=== PATIENT | male | born 1935 | race Caucasian/White ===

== ENCOUNTER 2016-07-24 14:53 | Inpatient (IN) | payer MEDICARE, BC ==
[2016-07-24] MEDS ORDERED: NALOXONE 0.4 MG/ML 1 ML VIAL IV PRN (19:52)
[2016-07-24] MEDS ORDERED: ALPRAZolam 0.25 MG TAB PO PRN (19:54)
[2016-07-24] MEDS ORDERED: TEMAZEPAM 15 MG CAP PO PRN (19:54)
[2016-07-24] MEDS ORDERED: ACETAMINOPHEN TAB 325 MG TAB PO PRN (19:54)
[2016-07-24 20:29] LABS: Basophils % (A) 0 %; CH 33.9; CHCM 32.8; Eosinophils # (A) 0.1 k/uL (0-0.7); Eosinophils % (A) 1 %; HDW 2.84; HGB 10.1 gm/dL (13.0-17.5); Luc # (Auto) 0.32; Luc % (Auto) 3; Lymphocytes # (A) 0.8 k/uL (1.0-4.8); Lymphocytes % (A) 8 %; MCHC 32.7 g/dL (31.0-37.0); MCV 104.1 fL (80.0-100.0); Macrocytosis Moderate; Mean Platelet Volume 7.6; Monocytes # (A) 0.8 k/uL (0-1.0); Monocytes % (A) 8 %; Neutrophils # (A) 7.8 k/uL (1.3-7.7); Neutrophils % (A) 80 %; RBC 2.98 m/uL (4.30-5.90); RDW 15.9 % (11.5-15.5); WBC 9.8 k/uL (3.8-10.6); WBC (Perox) 10.33
[2016-07-24] MEDS ORDERED: NITROGLYCERIN SL TABS 0.4 MG TAB SUBLINGUAL PRN (20:45)
[2016-07-24] MEDS ORDERED: ATORVASTATIN 80 MG TAB PO STA (20:45)
[2016-07-24] MEDS ORDERED: SODIUM CHLORIDE 0.9% 1,000 ML in EMPTY BAG 1 BAG IV ONE (20:45)
[2016-07-24] MEDS ORDERED: ASPIRIN 325 MG TAB PO STA (20:45)
[2016-07-24 21:08] LABS: Calcium 9.3 mg/dL (8.4-10.2); Potassium 4.1 mmol/L (3.5-5.1); Total Bilirubin 0.8 mg/dL (0.2-1.3); Total Protein 7.2 g/dL (6.3-8.2)
[2016-07-24] MEDS: HEPARIN SODIUM,PORCINE/D5W PMX 25,000 UNIT in DEXTROSE/WATER 1 500ML.BAG IV SCH (21:50)
[2016-07-24] MEDS: SODIUM CHLORIDE 0.9% 1,000 ML IV SCH (21:50)
[2016-07-24] MEDS: FAMOTIDINE 20 MG TAB PO SCH (21:51)
[2016-07-24] MEDS: DOCUSATE 100 MG CAP PO SCH (21:51)
[2016-07-24] MEDS: METOPROLOL SUCCINATE (ER) 25 MG TAB.ER.24H PO SCH (21:52)
[2016-07-24] MEDS: HYDROcodone/APAP 5-325MG 1 EACH TAB PO PRN (21:54)
[2016-07-25] MEDS: CALCIUM ACETATE 667 MG CAP PO SCH ×3 (05:51→16:43)
[2016-07-25] MEDS: ISOSORBIDE MONONITRATE ER 30 MG TAB.ER.24H PO SCH (05:52)
[2016-07-25] MEDS: predniSONE 5 MG TAB PO SCH (05:53)
[2016-07-25] MEDS: ALLOPURINOL 100 MG TAB PO SCH (05:53)
[2016-07-25] MEDS: DOCUSATE 100 MG CAP PO SCH ×2 (05:53→20:58)
[2016-07-25] MEDS: METOPROLOL SUCCINATE (ER) 25 MG TAB.ER.24H PO SCH ×2 (05:53→20:58)
[2016-07-25] MEDS: FAMOTIDINE 20 MG TAB PO SCH (05:53)
[2016-07-25] MEDS: FOLIC ACID 1 MG TAB PO SCH (05:54)
[2016-07-25 06:55] LABS: Glucose,Whole Blood 113 mg/dL (75-99)
[2016-07-25 07:02] LABS: Anisocytosis Slight; Basophils % (A) 1 %; CH 34.1; Eosinophils # (A) 0.2 k/uL (0-0.7); Eosinophils % (A) 2 %; HDW 2.88; HGB 9.4 gm/dL (13.0-17.5); Luc # (Auto) 0.32; Luc % (Auto) 4; Lymphocytes # (A) 0.9 k/uL (1.0-4.8); Lymphocytes % (A) 12 %; MCH 34.8 pg (25.0-35.0); MCHC 33.5 g/dL (31.0-37.0); MCV 103.9 fL (80.0-100.0); Macrocytosis Moderate; Mean Platelet Volume 7.6; Monocytes # (A) 0.8 k/uL (0-1.0); Monocytes % (A) 10 %; Neutrophils # (A) 5.7 k/uL (1.3-7.7); Neutrophils % (A) 72 %; RBC 2.69 m/uL (4.30-5.90); WBC 7.9 k/uL (3.8-10.6); WBC (Perox) 8.01
[2016-07-25] MEDS ORDERED: PANTOPRAZOLE 40 MG TABLET PO SCH (07:30)
[2016-07-25] MEDS: HEPARIN SODIUM,PORCINE/D5W PMX 25,000 UNIT in DEXTROSE/WATER 1 500ML.BAG IV SCH ×2 (08:16→12:43)
[2016-07-25] MEDS ORDERED: MIDAZOLAM 2 MG/2 ML VIAL ONE (08:26)
[2016-07-25] MEDS ORDERED: fentaNYL (PF) 50 MCG/ML 2 ML AMP ONE (08:26)
[2016-07-25] MEDS ORDERED: LIDOCAINE 2% INJ 20 MG/ML (20 ML MDV) ONE (08:26)
[2016-07-25] MEDS ORDERED: IV FLUID CONTINUATION 1,000 ML IV ONE (08:26)
[2016-07-25] MEDS ORDERED: MIDAZOLAM 2 MG/2 ML VIAL IV ONE (08:40)
[2016-07-25] MEDS ORDERED: fentaNYL (PF) 50 MCG/ML 2 ML AMP IV ONE (08:40)
[2016-07-25 08:42] LABS: Calcium 9.1 mg/dL (8.4-10.2); Potassium 4.1 mmol/L (3.5-5.1)
[2016-07-25] MEDS ORDERED: LIDOCAINE 2% INJ 20 MG/ML SQ ONE (08:45)
[2016-07-25] MEDS ORDERED: RX INFO: IV CONTRAST WAS GIVEN 1 EACH MISC MISCELLANE PRN (09:11)
[2016-07-25] MEDS ORDERED: IOHEXOL 350 MG/ML 100 ML BOTTLE INJ ONE (09:11)
[2016-07-25] MEDS ORDERED: HEPARIN SODIUM,PORCINE 5,000 UNIT/ML 1 ML VIAL IV PRN (09:17)
--- NOTE | 2016-07-25 09:20 | P.PCN ---
Date of Procedure: 07/25/16 Preoperative Diagnosis: NON STEMI Postoperative Diagnosis: Significant 2 vessel disease and mild aortic stenosis Procedure(s) Performed: Left heart catheterization without left ventriculography Description of Procedure: HISTORY: This is a 80-year-old gentleman with history of hypertension, previous ischemic heart disease and mild aortic stenosis who was admitted to [facility] with complaints of shortness of breath and cough and mild shoulder discomfort. His cardiac enzymes studies were suggestive of non-ST elevation myocardial infarction with EKG showing T-wave changes in anterolateral leads. Echocardiogram was reported as showing ejection fraction of 45% and evidence of mild to moderate aortic stenosis. Patient is advised to have a cardiac catheterization for definite diagnosis. CONSENT:I have discussed the risks, benefits and alternative therapies for the above-mentioned procedure and for both sedation/analgesia as well as necessary blood product administration, if indicated, as they pertain to this patient. The patient has indicated understanding and acceptance of the risks and procedures discussed. PROCEDURE: Patient was brought to the lab in a fasting state. Patient was given some IV sedation. The right groin is infiltrated with lidocaine and right femoral artery was entered using Seldinger technique. A 6-Samoan catheter was left in place and selective coronary arteriography was performed. Patient tolerated the procedure well. Femoral angiogram was performed and Angio-Seal was applied for hemostasis. No immediate complications were noted and patient was transferred to [facility] in a stable condition HEMODYNAMICS: The aortic pressure 120/70. Left ankle end-diastolic pressure is 18-20 at the gradient across the aortic valve seems to be about 15-20 SELECTIVE CORONARY ARTERIOGRAPHY: LEFT MAIN: Calcified with mild ostial stenosis THE LEFT ANTERIOR DESCENDING CORONARY ARTERY: This is a good caliber vessel with 90-95% stenosis proximally followed by another 90% long lesion. The distal LAD appears to be free of significant focal lesions. THE LEFT CIRCUMFLEX AND IS CORONARY ARTERY: Good caliber vessel and seemed to be free of any significant occlusive disease THE RIGHT CORONARY ARTERY: Dominant vessel with proximal 70-80% lesion. The PDA branch has mild disease LEFT VENTRICULOGRAPHY: Not performed FINAL IMPRESSION: #1 significant coronary artery disease with the critical lesions in the proximal LAD and also proximal RCA #2. Mild aortic stenosis #3 status post non-ST ID #4 mildly impaired LV function #5 mild to moderate aortic regurgitation by echo PLAN: Maximum medical therapy. Possible bypass surgery with graft to the LAD and RCA. PROGNOSIS: Guarded
[2016-07-25] MEDS ORDERED: MD COMMUNICATION TO PHARMACY 1 EACH MISC PO ONE ×2 (11:33)
--- NOTE | 2016-07-25 12:24 | P.CON ---
Consult Note - . Consult date: 07/25/16 Assessment/Plan:: I have been asked to see this patient in regards to his heel ulcer. I've been following him in the wound center. He has recurred a pressure ulcer on the posterior left heel. He has been treated successfully with a total contact cast. This ulcer is fairly small and fairly clean. In view of his upcoming coronary bypass I would recommend removing the cast. He can then be kept in sterile dressings with a gentle Javier wrap. I would utilize a foam boot for protection. I would use [employer] as a product on the ulcer. I'll be happy to see him as needed. When, after surgery, he becomes more active , we will consider replacing his total contact cast.
[2016-07-25] MEDS: SODIUM CHLORIDE 0.9% 1,000 ML IV SCH ×2 (12:50→20:58)
--- NOTE | 2016-07-25 13:19 | P.GSCN ---
History of Present Illness Consult date: 07/25/16 Reason for Consult: Coronary artery disease, need for surgical revascularization. Requesting physician: Yemi Duvall History of present illness: This 80-year-old gentleman with a history of hypertension, hyperlipidemia, previous myocardial infarction, and end-stage renal disease on hemodialysis presented to [facility] with increasing shortness of breath and cough. He denied that he had any chest pain, nausea, vomiting, diaphoresis at the time. Cardiac enzymes were drawn, EKG suggested non-ST elevation myocardial infarction with T-wave changes in the anterolateral leads. He also had an echocardiogram which demonstrated an ejection fraction of 45% with evidence of mild to moderate aortic stenosis. He was subsequently transferred to [facility] for cardiac catheterization which demonstrated significant coronary artery disease with critical lesions in the proximal LAD and proximal RCA. Dr. Alcaraz from cardiothoracic surgery was consulted for the possibility of surgical revascularization. Review of Systems 14 point review of systems was completed and was negative except as noted. - EENT Ears, nose, mouth and throat: Reports epistaxis - Cardiovascular Reports as per HPI - Respiratory Reports as per HPI Past Medical History Past Medical History: Heart Failure, Dialysis, Hyperlipidemia, Hypertension, Myocardial Infarction ([place]), Osteoarthritis ([place]), Renal Disease, Rheumatoid Arthritis ([place]) Additional Past Medical History / Comment(s): staph infection in blood. 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, VRE RIGHT FOOT Past Surgical History: Orthopedic Surgery, Tonsillectomy Additional Past Surgical History / Comment(s): right knee replacement, L arm dialysis shunt revised Past Anesthesia/Blood Transfusion Reactions: No Reported Reaction Past Psychological History: No Psychological Hx Reported Smoking Status: Former smoker Past Alcohol Use History: None Reported Past Drug Use History: None Reported Additional History: quit smoking 40 years ago, previous to that smoked 1 pk/day for 10 years - Past Family History Father Family Medical History: Coronary Artery Disease (CAD) Additional Family Medical History / Comment(s): father in a car accident Mother Family Medical History: No Reported History Additional Family Medical History / Comment(s): mother of old age Medications and Allergies Home Medications Medication Instructions Recorded Confirmed Type Allopurinol [Zyloprim] 100 mg PO DAILY 02/10/15 07/24/16 History Aspirin [Adult Low Dose Aspirin EC] 81 mg PO DAILY 02/10/15 07/24/16 History Cholecalciferol [Vitamin D3] 1,000 unit PO DAILY@1200 02/10/15 07/24/16 History Famotidine [Pepcid] 20 mg PO BID 02/10/15 07/24/16 History Folic Acid 1 mg PO DAILY 02/10/15 07/24/16 History predniSONE 5 mg PO DAILY 02/10/15 07/24/16 History Atorvastatin [Lipitor] 10 mg PO DAILY 08/08/15 07/24/16 History HYDROcodone/APAP 10-325MG [[place] 1 tab PO TID 08/08/15 07/24/16 History 10-325] Metoprolol Succinate [Toprol XL] 25 mg PO BID 08/08/15 07/24/16 History Calcium Acetate [Phoslo] 667 mg PO TID 07/24/16 07/24/16 History Docusate [Colace] 100 mg PO BID 07/24/16 07/24/16 History Furosemide [Lasix] 60 mg PO DAILY 07/24/16 07/24/16 History Isosorbide Mononitrate ER [Imdur] 30 mg PO DAILY 07/24/16 07/24/16 History Allergies Allergy/AdvReac Type Severity Reaction Status Date / Time No Known Allergies Allergy Verified 07/24/16 19:59 Surgical - Exam Vital Signs Temp Pulse Resp BP Pulse Ox 98.7 F 84 16 136/73 96 07/24/16 20:46 07/24/16 20:46 07/24/16 20:46 07/24/16 20:46 07/24/16 20:46 - General well developed, well nourished, no distress - Eyes PERRL, normal ocular movement - Neck no masses, no bruits, trachea midline thyroid nodule: absent, lymphadenopathy: absent, carotid bruit: absent - Respiratory Lungs sounds diminished bilaterally. Respirations even, nonlabored. Currently on room air. Effective cough. No clubbing of nails or central cyanosis. - Cardiovascular S1, S2 present. Systolic murmur present. Regular rate and rhythm, normal sinus rhythm on telemetry. No edema present. Left upper extremity AV fistula present, currently being used for hemodialysis. - Abdomen Abdomen: soft, non tender, bowel sounds - Genitourinary Deferred - Rectum Deferred - Integumentary Patient has left heel ulcer with total contact cast present, recent debridement , managed in the wound care center. no rash, no growths - Neurologic normal coordination, normal sensation - Musculoskeletal normal gait - Psychiatric oriented to time, oriented to person, oriented to place, speech is normal, memory intact Results - Labs 07/25/16 06:21 07/25/16 06:21 Abnormal Lab Results - Last 24 Hours (Table) 07/24/16 07/24/16 07/24/16 Range/Units 20:15 20:15 20:15 RBC 2.98 L (4.30-5.90) m/uL Hgb 10.1 L (13.0-17.5) gm/dL Hct 31.0 L (39.0-53.0) % MCV 104.1 H (80.0-100.0) fL RDW 15.9 H (11.5-15.5) % Neutrophils # 7.8 H (1.3-7.7) k/uL Lymphocytes # 0.8 L (1.0-4.8) k/uL APTT 54.4 H (22.0-30.0) sec Chloride 95 L (98-107) mmol/L BUN 39 H (9-20) mg/dL Creatinine 5.28 H* (0.66-1.25) mg/dL Glucose 129 H (74-99) mg/dL POC Glucose (mg/dL) (75-99) mg/dL 07/25/16 07/25/16 07/25/16 Range/Units 06:21 06:21 06:21 RBC 2.69 L (4.30-5.90) m/uL Hgb 9.4 L (13.0-17.5) gm/dL Hct 28.0 L (39.0-53.0) % MCV 103.9 H (80.0-100.0) fL RDW 16.0 H (11.5-15.5) % Neutrophils # (1.3-7.7) k/uL Lymphocytes # 0.9 L (1.0-4.8) k/uL APTT 61.0 H (22.0-30.0) sec Chloride (98-107) mmol/L BUN 47 H (9-20) mg/dL Creatinine 5.81 H* (0.66-1.25) mg/dL Glucose 110 H (74-99) mg/dL POC Glucose (mg/dL) (75-99) mg/dL 07/25/16 Range/Units 06:54 RBC (4.30-5.90) m/uL Hgb (13.0-17.5) gm/dL Hct (39.0-53.0) % MCV (80.0-100.0) fL RDW (11.5-15.5) % Neutrophils # (1.3-7.7) k/uL Lymphocytes # (1.0-4.8) k/uL APTT (22.0-30.0) sec Chloride (98-107) mmol/L BUN (9-20) mg/dL Creatinine (0.66-1.25) mg/dL Glucose (74-99) mg/dL POC Glucose (mg/dL) 113 H (75-99) mg/dL Diabetes panel 07/24/16 07/25/16 Range/Units 20:15 06:21 Sodium 137 139 (137-145) mmol/L Potassium 4.1 4.1 (3.5-5.1) mmol/L Chloride 95 L 101 (98-107) mmol/L Carbon Dioxide 29 24 (22-30) mmol/L BUN 39 H 47 H (9-20) mg/dL Creatinine 5.28 H* 5.81 H* (0.66-1.25) mg/dL Glucose 129 H 110 H (74-99) mg/dL Calcium 9.3 9.1 (8.4-10.2) mg/dL AST 33 (17-59) U/L ALT 21 (21-72) U/L Alkaline Phosphatase 99 (38-126) U/L Total Protein 7.2 (6.3-8.2) g/dL Albumin 3.7 (3.5-5.0) g/dL Calcium panel 07/24/16 07/25/16 Range/Units 20:15 06:21 Calcium 9.3 9.1 (8.4-10.2) mg/dL Albumin 3.7 (3.5-5.0) g/dL Pituitary panel 07/24/16 07/25/16 Range/Units 20:15 06:21 Sodium 137 139 (137-145) mmol/L Potassium 4.1 4.1 (3.5-5.1) mmol/L Chloride 95 L 101 (98-107) mmol/L Carbon Dioxide 29 24 (22-30) mmol/L BUN 39 H 47 H (9-20) mg/dL Creatinine 5.28 H* 5.81 H* (0.66-1.25) mg/dL Glucose 129 H 110 H (74-99) mg/dL Calcium 9.3 9.1 (8.4-10.2) mg/dL Adrenal panel 07/24/16 07/25/16 Range/Units 20:15 06:21 Sodium 137 139 (137-145) mmol/L Potassium 4.1 4.1 (3.5-5.1) mmol/L Chloride 95 L 101 (98-107) mmol/L Carbon Dioxide 29 24 (22-30) mmol/L BUN 39 H 47 H (9-20) mg/dL Creatinine 5.28 H* 5.81 H* (0.66-1.25) mg/dL Glucose 129 H 110 H (74-99) mg/dL Calcium 9.3 9.1 (8.4-10.2) mg/dL Total Bilirubin 0.8 (0.2-1.3) mg/dL AST 33 (17-59) U/L ALT 21 (21-72) U/L Alkaline Phosphatase 99 (38-126) U/L Total Protein 7.2 (6.3-8.2) g/dL Albumin 3.7 (3.5-5.0) g/dL - Imaging EKG: image reviewed Additional studies: Cath films reviewed. Assessment and Plan (1) Non-STEMI (non-ST elevated myocardial infarction) Status: Acute (2) Hypertension Status: Acute (3) Hyperlipidemia Status: Acute (4) End-stage renal disease on hemodialysis Status: Acute Plan: 1. Continue aspirin, statin, beta odette. 2. Preoperative testing ordered, pending. 3. Plan for urgent off pump coronary artery bypass graft on 07/29/2016 pending results of preoperative testing. 4. Preoperative teaching begun with patient, all questions answered at this time. 5. Plan discussed with Dr. Alcaraz, more recommendations, as patient progresses. Thank you Dr. Duvall for this consult. We look forward to working with you in the care of your patient. Time with Patient: Greater than 30
--- NOTE | 2016-07-25 14:03 | CONS ---
DATE OF CONSULTATION: 07/25/2016 HISTORY OF PRESENT ILLNESS: Patient is a 80-year-old white male with a history of end-stage renal disease on hemodialysis on a Friday, , Friday schedule. Patient was admitted to [facility] initially with not feeling well. Some cough, shortness of breath. He ruled in for [id number] [place], his troponin was around 10 Patient was transferred last night to [facility] for cardiac catheterization. He did have a cardiac cath this morning and was found to have 2 significant areas of blockages and a bypass has been recommended. Patient will be evaluated by Cardiothoracic Surgery. He was dialyzed yesterday for mild volume overload and mild hyperkalemia. Patient will be dialyzed again today. PAST MEDICAL HISTORY: End-stage renal disease, anemia of chronic disease, coronary artery disease, CKD, bone mineral disorder, hypertension. PAST SURGICAL HISTORY: AV fistula left arm with multiple revisions, previous MRSA wound infection and also history of heel ulcer being followed by Dr. Carey. It is on the left heel. Social history is negative for smoking, drug abuse or alcohol abuse. Patient works as a real estate services administrator. No history of smoking, drug abuse or alcohol abuse. On examination, he is comfortable. Blood pressure is 126/75, heart rate 82 per minute. He is afebrile. Examination of the heart, S1 and S2. Examination of the lungs, bilateral breath sounds are heard. Abdomen is soft, nontender. Examination of lower extremities shows no significant edema. Chronic skin changes are noted. FILTER TIP INSPECTOR exam is grossly intact. Labs show sodium 139, potassium 4.1. Hemoglobin 9.4 g/dL, serum creatinine 5.8. ASSESSMENT: 1. End-stage renal disease on hemodialysis on a Friday, , Friday schedule. Patient will be dialyzed today. 2. Coronary artery disease, status post cardiac catheterization, coronary artery bypass surgery has been recommended. 3. Anemia of chronic disease. 4. History of left heel ulcer being followed by Vascular Surgery. PLAN: Hemodialysis today, await further input from Cardiothoracic Surgery.
[2016-07-25] MEDS ORDERED: GELATIN SPONGE,ABSORB (SMALL) 1 EACH SPONGE ONE (14:45)
--- NOTE | 2016-07-25 15:59 | US ---
EXAMINATION TYPE: US carotid duplex BILAT DATE OF EXAM: 07/25/2016 3:48 PM COMPARISON: NONE CLINICAL HISTORY: pre op cardiac surgery. Pre-Op CABG EXAM MEASUREMENTS: RIGHT: Peak Systolic Velocity (PSV) cm/sec ----- Right CCA: 72.3 ----- Right ICA: 114.5 ----- Right ECA: 100.0 ICA/CCA ratio: 1.6 RIGHT: End Diastole cm/sec ----- Right CCA: 11.3 ----- Right ICA: 17.6 ----- Right ECA: 0.0 LEFT: Peak Systolic Velocity (PSV) cm/sec ----- Left CCA: 81.2 ----- Left ICA: 124.2 ----- Left ECA: 100.8 ICA/CCA ratio: 1.5 LEFT: End Diastole cm/sec ----- Left CCA: 19.7 ----- Left ICA: 37.0 ----- Left ECA: 0.0 VERTEBRALS (direction of flow): Right Vertebral: Antegrade Left Vertebral: Antegrade Heterogeneous plaque bilaterally without significant hemodynamic stenosis seen IMPRESSION: 1. Heterogeneous plaque bilaterally with no significant hemodynamic stenosis.
[2016-07-25 16:42] LABS: Hemoglobin A1C 5.5 % (4.2-6.1)
[2016-07-25] MEDS: FUROSEMIDE 20 MG TAB PO SCH (16:42)
[2016-07-25] MEDS: CHOLECALCIFEROL 1,000 UNIT TAB PO SCH (16:43)
--- NOTE | 2016-07-25 17:10 | P.CNPUL ---
History of Present Illness Consult date: 07/25/16 Chief complaint: Preoperative pulmonary evaluation History of present illness: This is a 80-year-old gentleman with history of hypertension, previous ischemic heart disease and mild aortic stenosis , end-stage renal disease on hemodialysis , known history of rheumatoid arthritis, who was admitted to [facility] with complaints of shortness of breath and cough and mild shoulder discomfort. His cardiac enzymes studies were suggestive of non-ST elevation myocardial infarction with EKG showing T-wave changes in anterolateral leads. Echocardiogram was reported as showing ejection fraction of 45% and evidence of mild to moderate aortic stenosis. Cardiac catheterization was completed and it showedSignificant coronary artery disease with a critical lesion in the proximal LAD and also in the proximal RCA. Based on these findings, the patient was asked to be seen by cardiothoracic surgery in consultation for surgery. The patient also has mild aortic stenosis and a mildly impaired LV function. From the pulmonary standpoint, the patient has no major respiratory difficulties. He claims that he was able to climb flight of stairs without any major difficulties. Nevertheless, currently has a ulcer on his left heel and this is limited his ability to walk and ambulate. No reported cough or sputum production. No chest tightness. No wheezing. No history of smoking. No recent pneumonias. No asthma. No bronchitis. Oxygen therapy. No nebulizer medication use or any other inhaler to use. Based on FEV1 is to be measured to a bedside spirometry. X-ray is to be also done. Room air pulse ox however is in the order of 94% and above. Review of Systems 12 point review of system was done and the positive findings are all mentioned above in history of present illness Past Medical History Past Medical History: Heart Failure, Dialysis, Hyperlipidemia, Hypertension, Myocardial Infarction ([place]), Osteoarthritis (OA), Renal Disease, Rheumatoid Arthritis (RA) Additional Past Medical History / Comment(s): Coronary artery disease details as mentioned above, incisional disease on hemodialysis, left lower extremity ulcer being followed up at the wound center, hyperlipidemia, gout, mild aortic stenosis, CHF mild, chronic anemia, hypertension, previous history of staphylococcal and enterococcal wound infection. Patient had MRSA. 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, VRE RIGHT FOOT Past Surgical History: Orthopedic Surgery, Tonsillectomy Additional Past Surgical History / Comment(s): right knee replacement, L arm dialysis shunt revised Past Anesthesia/Blood Transfusion Reactions: No Reported Reaction Past Psychological History: No Psychological Hx Reported Smoking Status: Former smoker Past Alcohol Use History: None Reported Past Drug Use History: None Reported - Past Family History Father Family Medical History: Coronary Artery Disease (CAD) Additional Family Medical History / Comment(s): father in a car accident Mother Family Medical History: No Reported History Additional Family Medical History / Comment(s): mother of old age Medications and Allergies Home Medications Medication Instructions Recorded Confirmed Type Allopurinol [Zyloprim] 100 mg PO DAILY 02/10/15 07/24/16 History Aspirin [Adult Low Dose Aspirin EC] 81 mg PO DAILY 02/10/15 07/24/16 History Cholecalciferol [Vitamin D3] 1,000 unit PO DAILY@1200 02/10/15 07/24/16 History Famotidine [Pepcid] 20 mg PO BID 02/10/15 07/24/16 History Folic Acid 1 mg PO DAILY 02/10/15 07/24/16 History predniSONE 5 mg PO DAILY 02/10/15 07/24/16 History Atorvastatin [Lipitor] 10 mg PO DAILY 08/08/15 07/24/16 History HYDROcodone/APAP 10-325MG [[place] 1 tab PO TID 08/08/15 07/24/16 History 10-325] Metoprolol Succinate [Toprol XL] 25 mg PO BID 08/08/15 07/24/16 History Calcium Acetate [Phoslo] 667 mg PO TID 07/24/16 07/24/16 History Docusate [Colace] 100 mg PO BID 07/24/16 07/24/16 History Furosemide [Lasix] 60 mg PO DAILY 07/24/16 07/24/16 History Isosorbide Mononitrate ER [Imdur] 30 mg PO DAILY 07/24/16 07/24/16 History Allergies Allergy/AdvReac Type Severity Reaction Status Date / Time No Known Allergies Allergy Verified 07/24/16 19:59 Physical Exam Vitals: Vital Signs Temp Pulse Pulse Resp BP Pulse Ox 07/25/16 15:08 97.0 F L 86 18 146/77 97 04/06/17 12:56 85 18 168/78 97 07/25/16 12:00 16 07/25/16 11:56 82 16 157/80 93 L 07/25/16 10:56 84 18 151/74 92 L 07/25/16 10:26 86 18 156/78 93 L 07/25/16 09:56 78 18 132/74 93 L 07/25/16 09:41 79 18 139/73 93 L 07/25/16 08:00 98.4 F 79 18 125/81 94 L 07/25/16 03:18 97.2 F L 82 16 126/75 93 L 07/25/16 00:00 98.8 F 88 16 127/72 92 L 07/24/16 20:46 98.7 F 84 16 136/73 96 Intake and Output 07/25/16 07/25/16 07/25/16 06:59 14:59 22:59 Intake Total 750 50 Output Total 250 175 150 Balance 500 -125 -150 Intake: IV 750 50 Heparin Sodium,Porcine/ 400 D5w Pmx 25,000 unit In Dextrose/Water 1 500ml. bag @ 14.43 UNITS/KG/HR 25 mls/hr IV .Q20H RINA Rx #:[id number] Sodium Chloride 0.9% 1, 350 000 ml @ 20 mls/hr IV . Q24H RINA Rx#:[id number] Oral 0 Output: Urine 250 175 150 Other: Voiding Method Urinal Weight 85.5 kg Head exam was generally normal. There was no scleral icterus or corneal arcus. Mucous membranes were moist.Neck was supple and without jugular venous distension, thyromegaly, or carotid bruits. Carotids were easily palpable bilaterally. There was no adenopathy.Lungs were clear to auscultation and percussion, and with normal diaphragmatic excursion. No wheezes or rales were noted. Cardiac exam revealed the PMI to be normally situated and sized. The rhythm was regular and no extrasystoles were noted during several minutes of auscultation. The first and second heart sounds were normal and physiologic splitting of the second heart sound was noted. There were no murmurs, rubs, clicks, or gallops.Abdominal exam revealed normal bowel sounds. The abdomen was soft, non-tender, and without masses, organomegaly, or appreciable enlargement of the abdominal aorta. Extremities were inspected and the patient has a dressing covering the left heel wound along with the appropriate splint. The patient also has a AV fistula in the left upper extremity. No cyanosis or clubbing. Results - Laboratory Findings CBC and BMP: 07/25/16 06:21 07/25/16 06:21 Abnormal lab findings: Abnormal Labs 07/24/16 07/24/16 07/24/16 20:15 20:15 20:15 RBC 2.98 L Hgb 10.1 L Hct 31.0 L MCV 104.1 H RDW 15.9 H Neutrophils # 7.8 H Lymphocytes # 0.8 L APTT 54.4 H Chloride 95 L BUN 39 H Creatinine 5.28 H* Glucose 129 H POC Glucose (mg/dL) 07/25/16 07/25/16 07/25/16 06:21 06:21 06:21 RBC 2.69 L Hgb 9.4 L Hct 28.0 L MCV 103.9 H RDW 16.0 H Neutrophils # Lymphocytes # 0.9 L APTT 61.0 H Chloride BUN 47 H Creatinine 5.81 H* Glucose 110 H POC Glucose (mg/dL) 07/25/16 06:54 RBC Hgb Hct MCV RDW Neutrophils # Lymphocytes # APTT Chloride BUN Creatinine Glucose POC Glucose (mg/dL) 113 H Assessment and Plan Plan: Assessment 1 Coronary artery disease post non-ST segment elevation myocardial infarction. The patient is post cardiac catheter sedation cardiac catheterization which showed critical lesion in the LAD and a second lesion in the RCA and based on discussion with cardiology the patient was thought to aggressive with bypass surgery. Currently is free of chest pain. 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 6 left lower extremity wound 7 hypertension 8 hyperlipidemia 9 Hyperuricemia/gout Plan Proceed with the cardiac surgery workup. Obtain ultrasound Dopplers of the carotids. Obtain a chest x-ray. Obtain a bedside spirometry to assess the patient's FEV1. We'll continue to follow.
--- NOTE | 2016-07-25 18:38 | CT ---
EXAMINATION TYPE: CT chest wo con DATE OF EXAM: 07/25/2016 6:28 PM COMPARISON: 08/08/2014 HISTORY: Pre Op scan per patient chest pain CT DLP: 481.5 mGycm Automated exposure control for dose reduction was used. FINDINGS: There are mild to moderate bilateral pleural effusions. Heart appears slightly enlarged. There is ath erosclerotic vascular calcification. There is no evidence of aortic aneurysm. There are no hilar mass es. There are a few mediastinal lymph nodes that measure less than 1 cm. There is mild groundglass type interstitial infiltrate in the upper lobe. There is no evidence of a p ulmonary mass. There is mild linear density at the lung bases consistent with scarring and atelectasi s. IMPRESSION: ATHEROSCLEROTIC VASCULAR DISEASE. BILATERAL PLEURAL EFFUSIONS ARE INCREASED SIGNIFICANTLY COMPARED TO LAST EXAM. INTERSTITIAL CHANGES AT THE LUNG BASES CONSISTENT WITH INTERSTITIAL FIBROSIS. THERE IS NE W GROUNDGLASS INTERSTITIAL NONSPECIFIC INFILTRATE IN THE UPPER LOBES COMPARED TO OLD EXAM. MILD CARDI OMEGALY.
--- NOTE | 2016-07-25 19:13 | XR ---
EXAMINATION TYPE: XR chest 2V DATE OF EXAM: 07/25/2016 6:52 PM COMPARISON: NONE HISTORY: Preop cardiac surgery TECHNIQUE: Frontal and lateral views of the chest are obtained. FINDINGS: There is blunting of costophrenic angles. There is no gross heart failure. Heart size is n ormal. Thoracic aorta is atheromatous. There are no hilar masses. There are chest leads. Bony thorax appears intact. There is old posterior lateral right mid rib fracture. IMPRESSION: There are new bilateral pleural effusions compared to last exam without overt heart fail ure.
--- NOTE | 2016-07-25 19:58 | HP ---
DATE OF ADMISSION: 07/24/2016 CHIEF COMPLAINT: Chest pain. HISTORY OF PRESENT ILLNESS: This 80-year-old gentleman with a past medical history of multiple medical problems including CHF, CAD, chronically on hemodialysis, hypertension, hyperlipidemia, myocardial infarction, history of rheumatoid arthritis, history of MRSA , being followed by Dr. Sage in the outpatient setting, presented to [facility] with complaints of chest pain as well as some shortness of breath and cough and multiple symptomatology. Features showed acute non-ST elevation myocardial infarction. Ejection fraction 45%. The patient underwent cardiac catheterization by Dr. Duvall after being transferred to [facility]. The cardiac cath showed significant coronary artery disease and critical lesions in the proximal LAD as well as proximal RCA and mild aortic stenosis. Mildly impaired LV function, mild to moderate aortic regurgitation by echo also. The patient was recommended a Cardiothoracic Surgery consult, which is being worked on at this time. Of note, the patient also had left heel ulcer of recurrent nature in the posterior left heel. Dr. Carey is following the patient closely. There is no history of fevers or rigors. No history of headaches, loss of consciousness or seizures. PAST MEDICAL HISTORY: History of hemodialysis, hypertension, hyperlipidemia, myocardial infarction, rheumatoid arthritis, MRSA ( ) sepsis. Medications prior to admission include home medications of: 1. Colace 100 mg b.i.d. 2. Vitamin D3, 1000 units. 3. Prednisone 5 mg daily. 4. Toprol XL 25 mg b.i.d. 5. Hydrocodone 25 mg t.i.d. p.r.n. 6. Phos-Lo. 7. Lasix 60 mg p.o. daily. 8. Pepcid 20 mg daily. 9. Lipitor 10 mg p.o. daily. 10. Zyloprim 100 mg p.o. t.i.d. 11. Imdur 30 mg daily. 12. Folic acid. 13. Aspirin 81 mg p.o. daily. ALLERGIES: None. FAMILY HISTORY: No history of heart disease or strokes in the family. SOCIAL HISTORY: Previous history of smoking. No history of alcohol. No history of current smoking. REVIEW OF SYSTEMS: ENT: No diminishing hearing or diminished vision. CARDIOVASCULAR: As mentioned earlier. RESPIRATORY: As mentioned earlier. GI: No nausea. : As mentioned earlier. NERVOUS SYSTEM: No numbness or weakness. ALLERGY/IMMUNOLOGY: No history of asthma. MUSCULOSKELETAL: As mentioned earlier. HEMATOLOGY/ONCOLOGY: No history of anemia. ENDOCRINE: As mentioned earlier. CONSTITUTIONAL: As mentioned nature. RHEUMATOLOGY: Negative. DERMATOLOGY: Negative. PSYCHIATRY: As mentioned earlier. PHYSICAL EXAM: Alert, oriented x3. Pulse 84, blood pressure 151/75, respirations 18, temperature normal, pulse ox 92% on room air. HEENT: Conjunctivae normal. NECK: No JVD. CARDIOVASCULAR: S1 and S2 muffled. LUNGS: Breath sounds diminished in the bases. Few scattered rhonchi. No crackles. ABDOMEN: Soft, nontender. No masses palpable. EXTREMITIES: Legs no edema. NERVOUS SYSTEM: Higher functions as mentioned. Moves all limbs equally. No focal deficits. SKIN: No ulcer or rash. LABS: WBC 9, hemoglobin 10, MCV 104.1, APTT 54.4, creatinine is 5.28, glucose 110. ASSESSMENT: 1. Acute non-ST segment elevation myocardial infarction with chest pain, status post cardiac catheterization. Awaiting further details regarding coronary artery bypass grafting. 2. Chronic renal failure with end-stage renal disease, stage IV, on hemodialysis. 3. Anemia, macrocytic, possibly secondary to renal hemodialysis and renal failure. 4. Increased random blood sugar. 5. History of congestive heart failure. 6. Hypertension. 7. Hyperlipidemia. 8. History of degenerative joint disease. 9. History of myocardial infarction. 10. History of rheumatoid arthritis. 11. History of Staph the blood. 12. 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 13. Tonsillectomy. 14. History of degenerative joint disease. 15. FULL CODE. RECOMMENDATIONS AND DISCUSSION: This 80-year-old gentleman who presented with multiple complex medical issues, we will monitor the patient closely, continue with the current medications and symptomatic treatment. At this time I recommend continue with the previous medications including beta blockers, antiplatelets, and resume the home medications. Otherwise, I would recommend follow-up labs. Closely follow with Cardiothoracic Surgery. Continue with hemodialysis. Nephrology has been consulted. Dr. Carey has been consulted for the heel ulcer. The cast was removed because of the surgery, otherwise sterile dressing and gentle Javier wrap also recommended. Follow with Dr. Carey after discharge. Otherwise, prognosis is guarded. Will discussed with the patient and staff. FOREIGN
[2016-07-25] MEDS: MUPIROCIN 2% OINT 22 GM TUBE NASAL SCH (20:59)
[2016-07-25] MEDS: HYDROcodone/APAP 5-325MG 1 EACH TAB PO PRN (21:02)
[2016-07-25 21:25] LABS: Appearance,Urine Clear (Clear); Bacteria,Urine Rare /hpf; Bilirubin,Urine Negative (Negative); Glucose,Urine (UA) 1+ (Negative); Ketones,Urine Negative (Negative); Leukocyte Esterase,Urine Negative (Negative); Nitrite,Urine Negative (Negative); Particle Count 721; Protein,Urine 2+ (Negative); RBC,Urine <1 /hpf (0-5); Specific Gravity,Urine 1.007 (1.001-1.035); Squamous Epithelial Cell,Urine <1 /hpf (0-4); UA Billing (MACRO vs. MICRO) MICRO; Urobilinogen,Urine <2.0 mg/dL (<2.0); WBC,Urine <1 /hpf (0-5)
[2016-07-26 06:41] LABS: INR 1.1 (<1.1); Prothrombin Time 11.2 sec (9.0-12.0)
[2016-07-26 06:46] LABS: Anisocytosis Slight; Aty Lym Flag Slight; CH 33.8; CHCM 31.6; HCT 27.4 % (39.0-53.0); HDW 3.03; HGB 8.8 gm/dL (13.0-17.5); Hypochromasia Slight; MCH 34.6 pg (25.0-35.0); MCHC 32.1 g/dL (31.0-37.0); MCV 107.6 fL (80.0-100.0); Macrocytosis Marked; Mean Platelet Volume 7.5; RBC 2.55 m/uL (4.30-5.90); RDW 16.2 % (11.5-15.5); WBC 7.4 k/uL (3.8-10.6)
[2016-07-26 06:53] LABS: Partial Thromboplastin Time 63.5 sec (22.0-30.0)
[2016-07-26] MEDS: CALCIUM ACETATE 667 MG CAP PO SCH ×3 (06:54→18:24)
[2016-07-26 07:32] LABS: Hepatitis C Virus IgG Index 0.03
[2016-07-26 08:10] LABS: Add Differential Manual Differential
[2016-07-26 08:16] LABS: Nucleated Red Blood Cells 0 /100 WBC (0-0)
[2016-07-26 08:18] LABS: Band Neutrophils % 0.5 %; Myelocytes % 0.5 %; Total Cells Counted 200
[2016-07-26 08:20] LABS: Manual Review Performed
[2016-07-26 08:25] LABS: Cholesterol 143 mg/dL (<200); HDL Cholesterol 55 mg/dL (40-60); Magnesium 2.5 mg/dL (1.6-2.3); Triglycerides 78 mg/dL (<150)
--- NOTE | 2016-07-26 08:30 | P.GSCN ---
History of Present Illness Consult date: 07/26/16 Reason for Consult: Recurrent nosebleeds, scheduled for CABG friday with use of anticoagulants Past Medical History Past Medical History: Heart Failure, Dialysis, Hyperlipidemia, Hypertension, Myocardial Infarction ([place]), Osteoarthritis (OA), Renal Disease, Rheumatoid Arthritis (RA) Additional Past Medical History / Comment(s): Coronary artery disease details as mentioned above, incisional disease on hemodialysis, left lower extremity ulcer being followed up at the wound center, hyperlipidemia, gout, mild aortic stenosis, CHF mild, chronic anemia, hypertension, previous history of staphylococcal and enterococcal wound infection. Patient had MRSA. 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, VRE RIGHT FOOT Past Surgical History: Orthopedic Surgery, Tonsillectomy Additional Past Surgical History / Comment(s): right knee replacement, L arm dialysis shunt revised Past Anesthesia/Blood Transfusion Reactions: No Reported Reaction Past Psychological History: No Psychological Hx Reported Smoking Status: Former smoker Past Alcohol Use History: None Reported Past Drug Use History: None Reported - Past Family History Father Family Medical History: Coronary Artery Disease (CAD) Additional Family Medical History / Comment(s): father in a car accident Mother Family Medical History: No Reported History Additional Family Medical History / Comment(s): mother of old age Medications and Allergies Home Medications Medication Instructions Recorded Confirmed Type Allopurinol [Zyloprim] 100 mg PO DAILY 02/10/15 07/24/16 History Aspirin [Adult Low Dose Aspirin EC] 81 mg PO DAILY 02/10/15 07/24/16 History Cholecalciferol [Vitamin D3] 1,000 unit PO DAILY@1200 02/10/15 07/24/16 History Famotidine [Pepcid] 20 mg PO BID 02/10/15 07/24/16 History Folic Acid 1 mg PO DAILY 02/10/15 07/24/16 History predniSONE 5 mg PO DAILY 02/10/15 07/24/16 History Atorvastatin [Lipitor] 10 mg PO DAILY 08/08/15 07/24/16 History HYDROcodone/APAP 10-325MG [[place] 1 tab PO TID 08/08/15 07/24/16 History 10-325] Metoprolol Succinate [Toprol XL] 25 mg PO BID 08/08/15 07/24/16 History Calcium Acetate [Phoslo] 667 mg PO TID 07/24/16 07/24/16 History Docusate [Colace] 100 mg PO BID 07/24/16 07/24/16 History Furosemide [Lasix] 60 mg PO DAILY 07/24/16 07/24/16 History Isosorbide Mononitrate ER [Imdur] 30 mg PO DAILY 07/24/16 07/24/16 History Allergies Allergy/AdvReac Type Severity Reaction Status Date / Time No Known Allergies Allergy Verified 07/24/16 19:59 Surgical - Exam Osteopathic Statement: *. No significant issues noted on an osteopathic structural exam other than those noted in the History and Physical/Consult. Vital Signs Temp Pulse Resp BP Pulse Ox 98.7 F 84 16 136/73 96 07/24/16 20:46 07/24/16 20:46 07/24/16 20:46 07/24/16 20:46 07/24/16 20:46 Results - Labs 07/26/16 06:10 07/25/16 06:21 Abnormal Lab Results - Last 24 Hours (Table) 07/25/16 07/25/16 07/25/16 Range/Units 06:21 20:46 22:38 RBC (4.30-5.90) m/uL Hgb (13.0-17.5) gm/dL Hct (39.0-53.0) % MCV (80.0-100.0) fL RDW (11.5-15.5) % Lymphocytes # (Manual) (1.0-4.8) k/uL APTT 56.7 H (22.0-30.0) sec BUN 47 H (9-20) mg/dL Creatinine 5.81 H* (0.66-1.25) mg/dL Glucose 110 H (74-99) mg/dL Urine Protein 2+ H (Negative) Urine Glucose (UA) 1+ H (Negative) Urine Blood Trace H (Negative) Urine Bacteria Rare H (None) /hpf 07/26/16 07/26/16 Range/Units 06:10 06:10 RBC 2.55 L (4.30-5.90) m/uL Hgb 8.8 L (13.0-17.5) gm/dL Hct 27.4 L (39.0-53.0) % MCV 107.6 H (80.0-100.0) fL RDW 16.2 H (11.5-15.5) % Lymphocytes # (Manual) 0.8 L (1.0-4.8) k/uL APTT 63.5 H (22.0-30.0) sec BUN (9-20) mg/dL Creatinine (0.66-1.25) mg/dL Glucose (74-99) mg/dL Urine Protein (Negative) Urine Glucose (UA) (Negative) Urine Blood (Negative) Urine Bacteria (None) /hpf Diabetes panel 07/25/16 07/25/16 Range/Units 06:21 06:21 Sodium 139 (137-145) mmol/L Potassium 4.1 (3.5-5.1) mmol/L Chloride 101 (98-107) mmol/L Carbon Dioxide 24 (22-30) mmol/L BUN 47 H (9-20) mg/dL Creatinine 5.81 H* (0.66-1.25) mg/dL Glucose 110 H (74-99) mg/dL Hemoglobin A1c 5.5 (4.2-6.1) % Calcium 9.1 (8.4-10.2) mg/dL Calcium panel 07/25/16 Range/Units 06:21 Calcium 9.1 (8.4-10.2) mg/dL Pituitary panel 07/25/16 Range/Units 06:21 Sodium 139 (137-145) mmol/L Potassium 4.1 (3.5-5.1) mmol/L Chloride 101 (98-107) mmol/L Carbon Dioxide 24 (22-30) mmol/L BUN 47 H (9-20) mg/dL Creatinine 5.81 H* (0.66-1.25) mg/dL Glucose 110 H (74-99) mg/dL Calcium 9.1 (8.4-10.2) mg/dL Adrenal panel 07/25/16 Range/Units 06:21 Sodium 139 (137-145) mmol/L Potassium 4.1 (3.5-5.1) mmol/L Chloride 101 (98-107) mmol/L Carbon Dioxide 24 (22-30) mmol/L BUN 47 H (9-20) mg/dL Creatinine 5.81 H* (0.66-1.25) mg/dL Glucose 110 H (74-99) mg/dL Calcium 9.1 (8.4-10.2) mg/dL
--- NOTE | 2016-07-26 08:33 | P.OP ---
Date of Procedure: 07/26/16 Preoperative Diagnosis: Recurring epistaxis right side patient scheduled for coronary artery bypass graft Postoperative Diagnosis: Same, ulcer right septum Procedure(s) Performed: Flexible nasal fiberoptic endoscopy Anesthesia: none Surgeon: Felix Peters Estimated Blood Loss (ml): 0 Pathology: none sent Condition: stable Disposition: PACU Indications for Procedure: Patient's been having recurring epistaxis probably from the right side. Intranasal pathology is to be ruled out Operative Findings: Patient has a right anterior septal ulcer in Kiesselbach's plexus there is a septal spur on the left there are no tumors masses or any gross noted. Description of Procedure: This patient was placed in a semirecumbent position. The right nares was evaluated externally and then entered with an EF type GP nasal endoscope. We evaluated the nose along the floor the nose underneath the middle turbinate and then superiorly bilaterally. There was a left septal spur and a slight left septal deviation. There was a anterior septal ulcer noted with some crusting and scabbing.
--- NOTE | 2016-07-26 08:39 | P.GSCN ---
History of Present Illness Consult date: 07/26/16 Reason for Consult: Recurring epistaxis scheduled for coronary artery bypass graft on Friday Requesting physician: Lb Alcala History of present illness: This is a 80-year-old white male who for the last 3 months has been having problems with recurring epistaxis primarily on the right side. He was seen in the emergency room last week at [facility] where his nose was pinched and observed. He tells me that he bleeds when he eats primarily in the morning and all started when he started taking blood thinners about 3 months ago. He was found have coronary artery disease and is scheduled for coronary artery bypass graft on Friday with the use of heparin and other anticoagulants scheduled. The concern is whether he will hemorrhage nasally with increased use of anticoagulant therapy. I'm here to evaluate his nose to prepping for surgery to prevent any nosebleeds posterior anticoagulation. Patient denies any sinonasal symptoms including facial pain and drainage sneezing etc. His only having problems with right-sided epistaxis. Review of Systems - Constitutional Reports as per HPI - EENT Ears, nose, mouth and throat: Reports as per HPI - Cardiovascular Reports as per HPI - Respiratory Reports as per HPI - Gastrointestinal Reports as per HPI - Genitourinary Reports as per HPI - Musculoskeletal Reports as per HPI - Integumentary Reports as per HPI - Neurological Reports as per HPI - Psychiatric Reports as per HPI - Endocrine Reports as per HPI - Hematologic/Lymphatic Reports as per HPI - Allergic/Immunologic Reports as per HPI Past Medical History Past Medical History: Heart Failure, Dialysis, Hyperlipidemia, Hypertension, Myocardial Infarction ([place]), Osteoarthritis (OA), Renal Disease, Rheumatoid Arthritis (RA) Additional Past Medical History / Comment(s): Coronary artery disease details as mentioned above, incisional disease on hemodialysis, left lower extremity ulcer being followed up at the wound center, hyperlipidemia, gout, mild aortic stenosis, CHF mild, chronic anemia, hypertension, previous history of staphylococcal and enterococcal wound infection. Patient had MRSA. 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, VRE RIGHT FOOT Past Surgical History: Orthopedic Surgery, Tonsillectomy Additional Past Surgical History / Comment(s): right knee replacement, L arm dialysis shunt revised Past Anesthesia/Blood Transfusion Reactions: No Reported Reaction Past Psychological History: No Psychological Hx Reported Smoking Status: Former smoker Past Alcohol Use History: None Reported Past Drug Use History: None Reported - Past Family History Father Family Medical History: Coronary Artery Disease (CAD) Additional Family Medical History / Comment(s): father in a car accident Mother Family Medical History: No Reported History Additional Family Medical History / Comment(s): mother of old age Medications and Allergies Home Medications Medication Instructions Recorded Confirmed Type Allopurinol [Zyloprim] 100 mg PO DAILY 02/10/15 07/24/16 History Aspirin [Adult Low Dose Aspirin EC] 81 mg PO DAILY 02/10/15 07/24/16 History Cholecalciferol [Vitamin D3] 1,000 unit PO DAILY@1200 02/10/15 07/24/16 History Famotidine [Pepcid] 20 mg PO BID 02/10/15 07/24/16 History Folic Acid 1 mg PO DAILY 02/10/15 07/24/16 History predniSONE 5 mg PO DAILY 02/10/15 07/24/16 History Atorvastatin [Lipitor] 10 mg PO DAILY 08/08/15 07/24/16 History HYDROcodone/APAP 10-325MG [[place] 1 tab PO TID 08/08/15 07/24/16 History 10-325] Metoprolol Succinate [Toprol XL] 25 mg PO BID 08/08/15 07/24/16 History Calcium Acetate [Phoslo] 667 mg PO TID 07/24/16 07/24/16 History Docusate [Colace] 100 mg PO BID 07/24/16 07/24/16 History Furosemide [Lasix] 60 mg PO DAILY 07/24/16 07/24/16 History Isosorbide Mononitrate ER [Imdur] 30 mg PO DAILY 07/24/16 07/24/16 History Allergies Allergy/AdvReac Type Severity Reaction Status Date / Time No Known Allergies Allergy Verified 07/24/16 19:59 Surgical - Exam Osteopathic Statement: *. No significant issues noted on an osteopathic structural exam other than those noted in the History and Physical/Consult. Vital Signs Temp Pulse Resp BP Pulse Ox 98.7 F 84 16 136/73 96 07/24/16 20:46 07/24/16 20:46 07/24/16 20:46 07/24/16 20:46 07/24/16 20:46 - General well developed, well nourished, obese - Eyes PERRL, normal ocular movement, no icteric - ENT Head is normocephalic, the face is symmetric, male pattern baldness noted. Auricles well-formed canals are clear the tympanic members are without bulging or retraction. Nose shows a right septal ulcer with a slight left septal deviation. Some old blood is noted intranasally on the right. Mouth shows dentures on the upper hard palate were removed for examination. No oral lesions are noted. Tongue is moist. Neck demonstrates no tumors or masses. normal pinna, decreased hearing, deviated nasal septum - Neck no masses - Respiratory normal expansion - Integumentary no rash, no growths - Neurologic normal sensation, no memory loss - Musculoskeletal normal posture - Psychiatric oriented to time, oriented to person, oriented to place, speech is normal, memory intact Results - Labs 07/26/16 06:10 07/25/16 06:21 Abnormal Lab Results - Last 24 Hours (Table) 07/25/16 07/25/16 07/25/16 Range/Units 06:21 20:46 22:38 RBC (4.30-5.90) m/uL Hgb (13.0-17.5) gm/dL Hct (39.0-53.0) % MCV (80.0-100.0) fL RDW (11.5-15.5) % Lymphocytes # (Manual) (1.0-4.8) k/uL APTT 56.7 H (22.0-30.0) sec BUN 47 H (9-20) mg/dL Creatinine 5.81 H* (0.66-1.25) mg/dL Glucose 110 H (74-99) mg/dL Urine Protein 2+ H (Negative) Urine Glucose (UA) 1+ H (Negative) Urine Blood Trace H (Negative) Urine Bacteria Rare H (None) /hpf 07/26/16 07/26/16 Range/Units 06:10 06:10 RBC 2.55 L (4.30-5.90) m/uL Hgb 8.8 L (13.0-17.5) gm/dL Hct 27.4 L (39.0-53.0) % MCV 107.6 H (80.0-100.0) fL RDW 16.2 H (11.5-15.5) % Lymphocytes # (Manual) 0.8 L (1.0-4.8) k/uL APTT 63.5 H (22.0-30.0) sec BUN (9-20) mg/dL Creatinine (0.66-1.25) mg/dL Glucose (74-99) mg/dL Urine Protein (Negative) Urine Glucose (UA) (Negative) Urine Blood (Negative) Urine Bacteria (None) /hpf Diabetes panel 07/25/16 07/25/16 Range/Units 06:21 06:21 Sodium 139 (137-145) mmol/L Potassium 4.1 (3.5-5.1) mmol/L Chloride 101 (98-107) mmol/L Carbon Dioxide 24 (22-30) mmol/L BUN 47 H (9-20) mg/dL Creatinine 5.81 H* (0.66-1.25) mg/dL Glucose 110 H (74-99) mg/dL Hemoglobin A1c 5.5 (4.2-6.1) % Calcium 9.1 (8.4-10.2) mg/dL Calcium panel 07/25/16 Range/Units 06:21 Calcium 9.1 (8.4-10.2) mg/dL Pituitary panel 07/25/16 Range/Units 06:21 Sodium 139 (137-145) mmol/L Potassium 4.1 (3.5-5.1) mmol/L Chloride 101 (98-107) mmol/L Carbon Dioxide 24 (22-30) mmol/L BUN 47 H (9-20) mg/dL Creatinine 5.81 H* (0.66-1.25) mg/dL Glucose 110 H (74-99) mg/dL Calcium 9.1 (8.4-10.2) mg/dL Adrenal panel 07/25/16 Range/Units 06:21 Sodium 139 (137-145) mmol/L Potassium 4.1 (3.5-5.1) mmol/L Chloride 101 (98-107) mmol/L Carbon Dioxide 24 (22-30) mmol/L BUN 47 H (9-20) mg/dL Creatinine 5.81 H* (0.66-1.25) mg/dL Glucose 110 H (74-99) mg/dL Calcium 9.1 (8.4-10.2) mg/dL Assessment and Plan (1) Epistaxis, recurrent Narrative/Plan: I'm recommending that this patient utilize Bactroban nasal ointment to help soften that ulcer to help it heal. Prior to surgery and planning on inserting a dissolvable nasal packing utilizing nasal pore. I discussed this with the patient and he is agreeable. This nasal pack his dissolvable and there is also to carbon dioxide and water over 5-7 day period of time. This does not guarantee he may not bleed but I think it is her best chance to prevent bleeding post anticoagulation. He still be able to breathe through the left side of his nose so I think it will be comfortable enough for him to tolerate. I'll see him this weekend to insert the pack. All questions were answered. Status: Acute (2) Deviated nasal septum Status: Acute (3) Ulcer of nasal septum Status: Acute
[2016-07-26 08:55] LABS: Calcium 9.4 mg/dL (8.4-10.2); Potassium 4.3 mmol/L (3.5-5.1); Total Bilirubin 0.7 mg/dL (0.2-1.3); Total Protein 6.2 g/dL (6.3-8.2)
[2016-07-26 08:56] LABS: Hepatitis B Surface Ag Index 0.05
[2016-07-26 09:02] LABS: Hepatitis B Core IgM Index 0.04
[2016-07-26 09:03] LABS: Hepatitis C Virus IgG Ab Negative (Negative)
--- NOTE | 2016-07-26 09:20 | P.PN ---
Subjective Principal diagnosis: Non-ST elevation myocardial infarction, preoperative coronary artery bypass grafting. Patient currently sitting up in bed in no distress. Denies chest pain/ shortness of breath. No questions at this time. Objective - Vital Signs Vital signs: Vital Signs Temp 97.1 F L 07/26/16 03:41 Pulse 84 07/26/16 03:41 Resp 16 07/26/16 03:41 BP 158/78 07/26/16 03:41 Pulse Ox 98 07/26/16 03:41 Intake & Output 07/25/16 07/26/16 07/26/16 18:59 06:59 18:59 Intake Total 405 360 180 Output Total 325 60 Balance 80 300 180 Weight 84.5 kg Intake: IV 50 360 Heparin Sodium,Porcine/ 200 D5w Pmx 25,000 unit In Dextrose/Water 1 500ml. bag @ 14.43 UNITS/KG/HR 25 mls/hr IV .Q20H [facility] Rx #:[id number] Sodium Chloride 0.9% 1, 160 000 ml @ 20 mls/hr IV . Q24H [facility] Rx#:[id number] Oral 355 180 Output: Urine 325 60 Other: Voiding Method Urinal # Voids 1 # Bowel Movements 1 - Constitutional General appearance: Present: cooperative, no acute distress - Respiratory Details: Lungs sounds diminished bilaterally. Respirations even, nonlabored. Currently on room air. - Cardiovascular Details: S1, S2 present. Systolic murmur present. Regular rate and rhythm, normal sinus rhythm on telemetry. No edema present. - Gastrointestinal Gastrointestinal Comment(s): Abdomen soft, nontender, nondistended. Active bowel sounds 4 quadrants. Tolerating diet. - Genitourinary Genitourinary Comment(s): Bleeding minimal amounts. Hemodialysis left upper extremity AV fistula with positive bruit, thrill. - Musculoskeletal Musculoskeletal: Present: gait normal, strength equal bilaterally - Psychiatric Psychiatric: Present: A&O x's 3, appropriate affect, intact judgment & insight - Allied health notes Allied health notes reviewed: nursing - Labs CBC & Chem 7: 07/26/16 06:10 07/26/16 06:10 Labs: Abnormal Lab Results - Last 24 Hours (Table) 07/25/16 07/25/16 07/26/16 Range/Units 20:46 22:38 06:10 RBC (4.30-5.90) m/uL Hgb (13.0-17.5) gm/dL Hct (39.0-53.0) % MCV (80.0-100.0) fL RDW (11.5-15.5) % Lymphocytes # (Manual) (1.0-4.8) k/uL APTT 56.7 H (22.0-30.0) sec BUN (9-20) mg/dL Creatinine (0.66-1.25) mg/dL Glucose (74-99) mg/dL Magnesium 2.5 H (1.6-2.3) mg/dL Total Protein (6.3-8.2) g/dL Albumin (3.5-5.0) g/dL Urine Protein 2+ H (Negative) Urine Glucose (UA) 1+ H (Negative) Urine Blood Trace H (Negative) Urine Bacteria Rare H (None) /hpf 07/26/16 07/26/16 07/26/16 Range/Units 06:10 06:10 06:10 RBC 2.55 L (4.30-5.90) m/uL Hgb 8.8 L (13.0-17.5) gm/dL Hct 27.4 L (39.0-53.0) % MCV 107.6 H (80.0-100.0) fL RDW 16.2 H (11.5-15.5) % Lymphocytes # (Manual) 0.8 L (1.0-4.8) k/uL APTT 63.5 H (22.0-30.0) sec BUN 46 H (9-20) mg/dL Creatinine 5.26 H* (0.66-1.25) mg/dL Glucose 136 H (74-99) mg/dL Magnesium (1.6-2.3) mg/dL Total Protein 6.2 L (6.3-8.2) g/dL Albumin 3.2 L (3.5-5.0) g/dL Urine Protein (Negative) Urine Glucose (UA) (Negative) Urine Blood (Negative) Urine Bacteria (None) /hpf - Imaging and Cardiology CT scan - chest: report reviewed, image reviewed Carotid Dopplers, pulmonary function test, vein mapping reviewed. Assessment and Plan (1) Non-STEMI (non-ST elevated myocardial infarction) Status: Acute (2) Hypertension Status: Acute (3) Hyperlipidemia Status: Acute (4) End-stage renal disease on hemodialysis Status: Acute Plan: 1. Continue aspirin, statin, beta odette. 2. Preoperative testing ordered, reviewed. 3. Plan for urgent off pump coronary artery bypass graft on 07/29/2016. 4. Preoperative teaching reinforced with patient, all questions answered at this time. We will return to teach and answer questions. 5. Will remove walking cast today and change dressing to left lower extremity per recommendations from Dr. Carey. 6. ENT consult note reviewed, will be in this weekend to pack right nare before surgery. 7. Plan discussed with Dr. Alcaraz, more recommendations, as patient progresses. Time with Patient: Greater than 30
[2016-07-26] MEDS: FUROSEMIDE 20 MG TAB PO SCH (10:02)
[2016-07-26] MEDS: MUPIROCIN 2% OINT 22 GM TUBE NASAL SCH ×2 (10:02→20:48)
[2016-07-26] MEDS: METOPROLOL SUCCINATE (ER) 25 MG TAB.ER.24H PO SCH ×2 (10:02→20:48)
[2016-07-26] MEDS: predniSONE 5 MG TAB PO SCH (10:03)
[2016-07-26] MEDS: ATORVASTATIN 10 MG TAB PO SCH (10:03)
[2016-07-26] MEDS: FAMOTIDINE 20 MG TAB PO SCH (10:03)
[2016-07-26] MEDS: FOLIC ACID 1 MG TAB PO SCH (10:03)
[2016-07-26] MEDS: ISOSORBIDE MONONITRATE ER 30 MG TAB.ER.24H PO SCH (10:03)
[2016-07-26] MEDS: ALLOPURINOL 100 MG TAB PO SCH (10:04)
[2016-07-26] MEDS: ASPIRIN 81 MG CHEW PO SCH (10:04)
[2016-07-26] MEDS: SODIUM CHLORIDE 0.9% 1,000 ML IV SCH ×2 (10:04→20:48)
[2016-07-26] MEDS: DOCUSATE 100 MG CAP PO SCH ×2 (10:04→20:48)
[2016-07-26] MEDS ORDERED: HYDROmorphone 1 MG/ML 1 ML SYRINGE IVP STA ×2 (10:40→11:04)
[2016-07-26] MEDS: HEPARIN SODIUM,PORCINE/D5W PMX 25,000 UNIT in DEXTROSE/WATER 1 500ML.BAG IV SCH (11:45)
[2016-07-26] MEDS: CHOLECALCIFEROL 1,000 UNIT TAB PO SCH (12:23)
[2016-07-26] MEDS ORDERED: HEPARIN SODIUM,PORCINE/D5W PMX 25,000 UNIT in DEXTROSE/WATER 1 500ML.BAG IV SCH (12:48)
--- NOTE | 2016-07-26 15:09 | P.PN ---
Subjective This is a 80-year-old gentleman with history of hypertension, previous ischemic heart disease and mild aortic stenosis , end-stage renal disease on hemodialysis , known history of rheumatoid arthritis, who was admitted to [facility] with complaints of shortness of breath and cough and mild shoulder discomfort. His cardiac enzymes studies were suggestive of non-ST elevation myocardial infarction with EKG showing T-wave changes in anterolateral leads. Echocardiogram was reported as showing ejection fraction of 45% and evidence of mild to moderate aortic stenosis. Cardiac catheterization was completed and it showedSignificant coronary artery disease with a critical lesion in the proximal LAD and also in the proximal RCA. Based on these findings, the patient was asked to be seen by cardiothoracic surgery in consultation for surgery. The patient also has mild aortic stenosis and a mildly impaired LV function. From the pulmonary standpoint, the patient has no major respiratory difficulties. He claims that he was able to climb flight of stairs without any major difficulties. Nevertheless, currently has a ulcer on his left heel and this is limited his ability to walk and ambulate. No reported cough or sputum production. No chest tightness. No wheezing. No history of smoking. No recent pneumonias. No asthma. No bronchitis. Oxygen therapy. No nebulizer medication use or any other inhaler to use. Based on FEV1 is to be measured to a bedside spirometry. X-ray is to be also done. Room air pulse ox however is in the order of 94% and above. On 06/25/2016 the patient is being seen in follow-up. The patient had a hematoma the site of a cardiac catheterization as the Angio-Seal became dislodged. Local pressure was applied. He is doing well otherwise pedalor difficulties. FEV1 is above 70% of predicted. CAT scan of the chest was done that showed small [place] pleural effusions and there are some interstitial changes lung bases consistent with some mild CHF. There is also mild cardiomegaly. Otherwise no other major abnormalities have been noted. The patient remains on room air. Respiratory difficulties. Awaiting cardiac bypass surgery. Objective - Vital Signs Vital signs: Vital Signs Temp 97.0 F L 07/26/16 08:00 Pulse 90 07/26/16 08:00 Resp 16 07/26/16 08:00 BP 128/73 07/26/16 08:00 Pulse Ox 97 07/26/16 08:00 Intake & Output 07/25/16 07/26/16 07/26/16 18:59 06:59 18:59 Intake Total 405 360 417 Output Total 325 60 Balance 80 300 417 Weight 84.5 kg Intake: IV 50 360 Heparin Sodium,Porcine/ 200 D5w Pmx 25,000 unit In Dextrose/Water 1 500ml. bag @ 14.43 UNITS/KG/HR 25 mls/hr IV .Q20H [facility] Rx #:[id number] Sodium Chloride 0.9% 1, 160 000 ml @ 20 mls/hr IV . Q24H [facility] Rx#:[id number] Oral 355 417 Output: Urine 325 60 Other: Voiding Method Urinal # Voids 1 # Bowel Movements 1 - Exam Head exam was generally normal. There was no scleral icterus or corneal arcus. Mucous membranes were moist.Neck was supple and without jugular venous distension, thyromegaly, or carotid bruits. Carotids were easily palpable bilaterally. There was no adenopathy.Lungs were clear to auscultation and percussion, and with normal diaphragmatic excursion. No wheezes or rales were noted. Cardiac exam revealed the PMI to be normally situated and sized. The rhythm was regular and no extrasystoles were noted during several minutes of auscultation. The first and second heart sounds were normal and physiologic splitting of the second heart sound was noted. There were no murmurs, rubs, clicks, or gallops.Abdominal exam revealed normal bowel sounds. The abdomen was soft, non-tender, and without masses, organomegaly, or appreciable enlargement of the abdominal aorta. Extremities were inspected and the patient has a dressing covering the left heel wound along with the appropriate splint. The patient also has a AV fistula in the left upper extremity. No cyanosis or clubbing. - Labs CBC & Chem 7: 07/26/16 06:10 07/26/16 06:10 Labs: Abnormal Lab Results - Last 24 Hours (Table) 07/25/16 07/25/16 07/26/16 Range/Units 20:46 22:38 06:10 RBC (4.30-5.90) m/uL Hgb (13.0-17.5) gm/dL Hct (39.0-53.0) % MCV (80.0-100.0) fL RDW (11.5-15.5) % Lymphocytes # (Manual) (1.0-4.8) k/uL APTT 56.7 H (22.0-30.0) sec BUN (9-20) mg/dL Creatinine (0.66-1.25) mg/dL Glucose (74-99) mg/dL Magnesium 2.5 H (1.6-2.3) mg/dL Total Protein (6.3-8.2) g/dL Albumin (3.5-5.0) g/dL Urine Protein 2+ H (Negative) Urine Glucose (UA) 1+ H (Negative) Urine Blood Trace H (Negative) Urine Bacteria Rare H (None) /hpf 07/26/16 07/26/16 07/26/16 Range/Units 06:10 06:10 06:10 RBC 2.55 L (4.30-5.90) m/uL Hgb 8.8 L (13.0-17.5) gm/dL Hct 27.4 L (39.0-53.0) % MCV 107.6 H (80.0-100.0) fL RDW 16.2 H (11.5-15.5) % Lymphocytes # (Manual) 0.8 L (1.0-4.8) k/uL APTT 63.5 H (22.0-30.0) sec BUN 46 H (9-20) mg/dL Creatinine 5.26 H* (0.66-1.25) mg/dL Glucose 136 H (74-99) mg/dL Magnesium (1.6-2.3) mg/dL Total Protein 6.2 L (6.3-8.2) g/dL Albumin 3.2 L (3.5-5.0) g/dL Urine Protein (Negative) Urine Glucose (UA) (Negative) Urine Blood (Negative) Urine Bacteria (None) /hpf Microbiology - Last 24 Hours (Table) 07/25/16 20:46 Urine Culture - Preliminary Urine,Voided Assessment and Plan Plan: Assessment 1 Coronary artery disease post non-ST segment elevation myocardial infarction. The patient is post cardiac catheter sedation cardiac catheterization which showed critical lesion in the LAD and a second lesion in the RCA and based on discussion with cardiology the patient was thought to aggressive with bypass surgery. Currently is free of chest pain. 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 6 left lower extremity wound 7 hypertension 8 hyperlipidemia 9 Hyperuricemia/gout Plan CT of the chest reviewed. Small better pleural effusion consistent with CHF. Patient has preserved FEV1. No Pulmicort complications for now. Awaiting bypass surgery.
--- NOTE | 2016-07-26 15:11 | P.CONS ---
History of Present Illness - Reason for Consult Consult date: 07/26/16 Pre-CABG clearance, antibiotic recommendations - History of Present Illness This is a 80-year-old male known to infectious disease service as he has been treated for infection to his shunt on his left arm before as well as ulceration to his left heel. Patient states that he presented to [facility] because he was initially having epistaxis. This was on Friday. The bleeding was controlled and he was discharged home. He then returned on Friday as he woke up in the morning at 2 AM with a cough and shortness of breath that had been going on but continued to worsen. Patient was diagnosed with a non-ST elevated myocardial infarction and was transferred to [facility] on July 25 for heart catheterization that found two-vessel disease of the proximal LAD and proximal RCA with mild aortic stenosis. He has been evaluated by cardiothoracic surgery and is scheduled for CABG on June 28. Patient does have history of end-stage renal disease on hemodialysis Friday and Friday and is followed by Dr. Fernandez. He denies any problems with his dialysis AV fistula in his left arm. [facility] under the care of Dr. Carey. He has a total contact cast to the left lower extremity which is scheduled to be removed today. Regarding his epistaxis, patient was seen by Dr. Chen on underwent flexible nasal endoscopy finding a right anterior septal ulcer. Dr. Lucas is following from pulmonary medicine. Upon review of his previous wound cultures, he does have history of MRSA. Patient does have history of rheumatoid arthritis on prednisone only. Review of Systems All systems: negative Constitutional: Denies chills, Denies fever Eyes: denies blurred vision, denies pain Ears, nose, mouth and throat: Reports epistaxis, Denies dental pain, Denies dysphagia, Denies headache, Denies mouth pain, Denies sore throat Cardiovascular: Denies chest pain, Denies shortness of breath Respiratory: Reports cough Gastrointestinal: Denies abdominal pain, Denies diarrhea, Denies nausea, Denies vomiting Musculoskeletal: Denies myalgias Integumentary: Denies pruritus, Denies rash Neurological: Denies numbness, Denies weakness Psychiatric: Denies anxiety, Denies depression Endocrine: Denies fatigue, Denies weight change Past Medical History Past Medical History: Heart Failure, Dialysis, Hyperlipidemia, Hypertension, Myocardial Infarction (PA), Osteoarthritis (OA), Renal Disease, Rheumatoid Arthritis (RA) Additional Past Medical History / Comment(s): Coronary artery disease with previous myocardial infarction 15 years ago, end-stage renal disease on hemodialysis from [facility] for rheumatoid arthritis, rheumatoid arthritis diagnosed 40 years ago and currently on prednisone only, left lower extremity ulcer being followed up at the wound center, hyperlipidemia, gout, mild aortic stenosis, CHF mild, chronic anemia, hypertension, previous history of staphylococcal and enterococcal wound infection. Patient had MRSA. 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 No medical marijuana, marijuana, street drug use. He currently lives at home with his and 2 dogs. He served in the [employer] for 8 years. 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 Past Drug Use History: None Reported - Past Family History Father Family Medical History: Coronary Artery Disease (CAD) Additional Family Medical History / Comment(s): father in a car accident Mother Family Medical History: No Reported History Additional Family Medical History / Comment(s): mother of old age Medications and Allergies Home Medications Medication Instructions Recorded Confirmed Type Allopurinol [Zyloprim] 100 mg PO DAILY 02/10/15 07/24/16 History Aspirin [Adult Low Dose Aspirin EC] 81 mg PO DAILY 02/10/15 07/24/16 History Cholecalciferol [Vitamin D3] 1,000 unit PO DAILY@1200 02/10/15 07/24/16 History Famotidine [Pepcid] 20 mg PO BID 02/10/15 07/24/16 History Folic Acid 1 mg PO DAILY 02/10/15 07/24/16 History predniSONE 5 mg PO DAILY 02/10/15 07/24/16 History Atorvastatin [Lipitor] 10 mg PO DAILY 08/08/15 07/24/16 History HYDROcodone/APAP 10-325MG [[place] 1 tab PO TID 08/08/15 07/24/16 History 10-325] Metoprolol Succinate [Toprol XL] 25 mg PO BID 08/08/15 07/24/16 History Calcium Acetate [Phoslo] 667 mg PO TID 07/24/16 07/24/16 History Docusate [Colace] 100 mg PO BID 07/24/16 07/24/16 History Furosemide [Lasix] 60 mg PO DAILY 07/24/16 07/24/16 History Isosorbide Mononitrate ER [Imdur] 30 mg PO DAILY 07/24/16 07/24/16 History Allergies Allergy/AdvReac Type Severity Reaction Status Date / Time No Known Allergies Allergy Verified 07/24/16 19:59 Physical Exam Vitals: Vital Signs Temp Pulse Pulse Resp BP Pulse Ox 07/26/16 08:00 97.0 F L 90 16 128/73 97 07/26/16 03:41 97.1 F L 84 16 158/78 98 07/25/16 23:53 97.6 F 89 16 137/68 96 07/25/16 20:00 97.1 F L 84 18 139/71 98 07/25/16 16:00 18 07/25/16 15:08 97.0 F L 86 18 146/77 97 07/25/16 12:56 85 18 168/78 97 07/25/16 12:00 16 07/25/16 11:56 82 16 157/80 93 L 07/25/16 10:56 84 18 151/74 92 L 07/25/16 10:26 86 18 156/78 93 L 07/25/16 09:56 78 18 132/74 93 L Intake and Output 07/25/16 07/26/16 07/26/16 22:59 06:59 14:59 Intake Total 715 180 Output Total 210 Balance 505 180 Intake: IV 360 Heparin Sodium,Porcine/ 200 D5w Pmx 25,000 unit In Dextrose/Water 1 500ml. bag @ 14.43 UNITS/KG/HR 25 mls/hr IV .Q20H [facility] Rx #:[id number] Sodium Chloride 0.9% 1, 160 000 ml @ 20 mls/hr IV . Q24H [facility] Rx#:[id number] Oral 355 180 Output: Urine 210 Other: Voiding Method Urinal # Voids 0 1 # Bowel Movements 1 Weight 84.5 kg Gen: This is a 80-year-old male. He is sitting on the edge of the bed appears to be in no acute distress. HEENT: Head is atraumatic, normocephalic. Pupils equal, round. Sclerae is anicteric. Conjunctiva pink. Mucous members of the mouth are moist. No thrush noted. NECK: Supple. No JVD. No lymphadenopathy. No thyromegaly. LUNGS: Clear to auscultation. No wheezes or rhonchi. No intercostal retractions. HEART: Regular rate and rhythm. No murmur. ABDOMEN: Soft. Bowel sounds are present. No masses. No tenderness. EXTREMITIES: No pedal edema. No calf tenderness. Total contact cast in place on the left lower extremity. Dialysis AV fistula to the left upper arm. NEUROLOGICAL: Patient is awake, alert and oriented x3. Cranial nerves 2 through 12 are grossly intact. Results Results: Laboratory Results WBC 7.4 k/uL (3.8-10.6) 07/26/16 06:10 RBC 2.55 m/uL (4.30-5.90) L 07/26/16 06:10 Hgb 8.8 gm/dL (13.0-17.5) L 07/26/16 06:10 Hct 27.4 % (39.0-53.0) L 07/26/16 06:10 MCV 107.6 fL (80.0-100.0) H 07/26/16 06:10 MCH 34.6 pg (25.0-35.0) 07/26/16 06:10 MCHC 32.1 g/dL (31.0-37.0) 07/26/16 06:10 RDW 16.2 % (11.5-15.5) H 07/26/16 06:10 Plt Count 176 k/uL (150-450) 07/26/16 06:10 Neutrophils % 72 % 07/25/16 06:21 Neutrophils % (Manual) 71.5 % 07/26/16 06:10 Band Neutrophils % 0.5 % 07/26/16 06:10 Lymphocytes % 12 % 07/25/16 06:21 Lymphocytes % (Manual) 11.0 % 07/26/16 06:10 Monocytes % 10 % 07/25/16 06:21 Monocytes % (Manual) 13.0 % 07/26/16 06:10 Eosinophils % 2 % 07/25/16 06:21 Eosinophils % (Manual) 3.5 % 07/26/16 06:10 Basophils % 1 % 07/25/16 06:21 Myelocytes % 0.5 % 07/26/16 06:10 Neutrophils # 5.7 k/uL (1.3-7.7) 07/25/16 06:21 Neutrophils # (Manual) 5.3 k/uL (1.3-7.7) 07/26/16 06:10 Lymphocytes # 0.9 k/uL (1.0-4.8) L 07/25/16 06:21 Lymphocytes # (Manual) 0.8 k/uL (1.0-4.8) L 07/26/16 06:10 Monocytes # 0.8 k/uL (0-1.0) 07/25/16 06:21 Monocytes # (Manual) 1.0 k/uL (0-1.0) 07/26/16 06:10 Eosinophils # 0.2 k/uL (0-0.7) 07/25/16 06:21 Eosinophils # (Manual) 0.3 k/uL (0-0.7) 07/26/16 06:10 Basophils # 0.0 k/uL (0-0.2) 07/25/16 06:21 Nucleated RBCs 0 /100 WBC (0-0) 07/26/16 06:10 Manual Slide Review Performed 07/26/16 06:10 Hypochromasia Slight 07/26/16 06:10 Poikilocytosis (manual Present 07/26/16 06:10 Anisocytosis Slight 07/26/16 06:10 Macrocytosis Marked 07/26/16 06:10 PT 11.2 sec (9.0-12.0) 07/26/16 06:10 INR 1.1 (<1.1) 07/26/16 06:10 APTT 63.5 sec (22.0-30.0) H 07/26/16 06:10 Sodium 141 mmol/L (137-145) 07/26/16 06:10 Potassium 4.3 mmol/L (3.5-5.1) 07/26/16 06:10 Chloride 103 mmol/L (98-107) 07/26/16 06:10 Carbon Dioxide 24 mmol/L (22-30) 07/26/16 06:10 Anion Gap 14 mmol/L 07/26/16 06:10 BUN 46 mg/dL (9-20) H 07/26/16 06:10 Creatinine 5.26 mg/dL (0.66-1.25) H* 07/26/16 06:10 Est GFR (MDRD) Af Amer 13 (>60 ml/min/1.73 sqM) 07/26/16 06:10 Est GFR (MDRD) Non-Af 11 (>60 ml/min/1.73 sqM) 07/26/16 06:10 Glucose 136 mg/dL (74-99) H 07/26/16 06:10 POC Glucose (mg/dL) 113 mg/dL (75-99) H 07/25/16 06:54 POC Glu [employer] Floorperson ID Erika Elkins 07/25/16 06:[address] Glu mg/dL 111 mg/dL 07/25/16 06:21 Hemoglobin A1c 5.5 % (4.2-6.1) 07/25/16 06:21 Calcium 9.4 mg/dL (8.4-10.2) 07/26/16 06:10 Magnesium 2.5 mg/dL (1.6-2.3) H 07/26/16 06:10 Total Bilirubin 0.7 mg/dL (0.2-1.3) 07/26/16 06:10 AST 51 U/L (17-59) 07/26/16 06:10 ALT 48 U/L (21-72) 07/26/16 06:10 Alkaline Phosphatase 95 U/L (38-126) 07/26/16 06:10 NT-Pro-B Natriuret Pep 80565 pg/mL 07/25/16 06:21 Total Protein 6.2 g/dL (6.3-8.2) L 07/26/16 06:10 Albumin 3.2 g/dL (3.5-5.0) L 07/26/16 06:10 Triglycerides 78 mg/dL (<150) 07/26/16 06:10 Cholesterol 143 mg/dL (<200) 07/26/16 06:10 LDL Cholesterol, Calc 72 mg/dL (0-99) 07/26/16 06:10 HDL Cholesterol 55 mg/dL (40-60) 07/26/16 06:10 TSH 3.000 mIU/L (0.465-4.680) 07/26/16 06:10 Urine Color Light Yellow 07/25/16 20:46 Urine Appearance Clear (Clear) 07/25/16 20:46 Urine pH 8.0 (5.0-8.0) 07/25/16 20:46 Ur Specific [place] 1.007 (1.001-1.035) 07/25/16 20:46 Urine Protein 2+ (Negative) H 07/25/16 20:46 Urine Glucose (UA) 1+ (Negative) H 07/25/16 20:46 Urine Ketones Negative (Negative) 07/25/16 20:46 Urine Blood Trace (Negative) H 07/25/16 20:46 Urine Nitrite Negative (Negative) 07/25/16 20:46 Urine Bilirubin Negative (Negative) 07/25/16 20:46 Urine Urobilinogen <2.0 mg/dL (<2.0) 07/25/16 20:46 Ur Leukocyte Esterase Negative (Negative) 07/25/16 20:46 Urine RBC <1 /hpf (0-5) 07/25/16 20:46 Urine WBC <1 /hpf (0-5) 07/25/16 20:46 Ur Squamous Epith Cells <1 /hpf (0-4) 07/25/16 20:46 Urine Bacteria Rare /hpf (None) H 07/25/16 20:46 Stool Occult Blood Positive (Negative) 07/25/16 20:46 Hepatitis A IgM Ab NEGATIVE 07/26/16 06:10 Hep Bs Antigen Negative 07/26/16 06:10 Hep B Core IgM Ab NEGATIVE 07/26/16 06:10 Hep C IgG Ab Negative (Negative) 07/26/16 06:10 CBC & Chem 7: 07/26/16 06:10 07/26/16 06:10 Labs: Abnormal Lab Results - Last 24 Hours (Table) 07/25/16 07/25/1607/26/17 Range/Units 20:46 22:38 06:10 RBC (4.30-5.90) m/uL Hgb (13.0-17.5) gm/dL Hct (39.0-53.0) % MCV (80.0-100.0) fL RDW (11.5-15.5) % Lymphocytes # (Manual) (1.0-4.8) k/uL APTT 56.7 H (22.0-30.0) sec BUN (9-20) mg/dL Creatinine (0.66-1.25) mg/dL Glucose (74-99) mg/dL Magnesium 2.5 H (1.6-2.3) mg/dL Total Protein (6.3-8.2) g/dL Albumin (3.5-5.0) g/dL Urine Protein 2+ H (Negative) Urine Glucose (UA) 1+ H (Negative) Urine Blood Trace H (Negative) Urine Bacteria Rare H (None) /hpf 07/26/16 07/26/16 07/26/16 Range/Units 06:10 06:10 06:10 RBC 2.55 L (4.30-5.90) m/uL Hgb 8.8 L (13.0-17.5) gm/dL Hct 27.4 L (39.0-53.0) % MCV 107.6 H (80.0-100.0) fL RDW 16.2 H (11.5-15.5) % Lymphocytes # (Manual) 0.8 L (1.0-4.8) k/uL APTT 63.5 H (22.0-30.0) sec BUN 46 H (9-20) mg/dL Creatinine 5.26 H* (0.66-1.25) mg/dL Glucose 136 H (74-99) mg/dL Magnesium (1.6-2.3) mg/dL Total Protein 6.2 L (6.3-8.2) g/dL Albumin 3.2 L (3.5-5.0) g/dL Urine Protein (Negative) Urine Glucose (UA) (Negative) Urine Blood (Negative) Urine Bacteria (None) /hpf Assessment and Plan Plan: This is a 80-year-old male who has been recently diagnosed with a non- ST elevated myocardial infarction is scheduled for coronary artery bypass grafting on July 29. He does have history of MRSA and wound infection in the past. Antibiotics in the perioperative period will be addressed. Continue supportive care. Further recommendations as patient progresses. The above dictated assessment and findings were discussed with Dr. Gordon. The impression and plan of care have been directed as dictated. Lorraine Nichole nurse practitioner acting as scribe for Dr. Gordon. Time with Patient: Greater than 30
--- NOTE | 2016-07-26 15:39 | P.PN ---
Subjective Principal diagnosis: Non STEMI This is a pleasant 80-year-old gentleman with a history of hypertension, ischemic heart disease and mild aortic stenosis who was admitted to [facility] with complaints of shortness of breath and cough as well as mild shoulder discomfort. His troponin levels were found to be positive for a non- ST elevation myocardial infarction with EKG showing T-wave changes in the anterolateral leads. Echocardiogram was reported as showing an ejection fraction of 45% and evidence of mild to moderate aortic stenosis. Patient was transferred here to [facility] for cardiac catheterization. Patient underwent cardiac catheterization with right femoral artery approach and was found to have significant coronary artery disease with critical lesions in the proximal LAD and proximal RCA as well as mild aortic stenosis. Patient was seen and evaluated by cardiovascular surgeon and is scheduled to undergo coronary artery bypass grafting on 07/29/2016. Patient did fairly well through the night however developed a hematoma this morning, this was reduced by nursing staff and a FemoStop was applied. Heparin drip was discontinued at that time. Currently, site is soft and FemoStop remains in place. Objective - Vital Signs Vital signs: Vital Signs Temp 97 F L 07/26/16 12:00 Pulse 90 07/26/16 12:00 Resp 20 07/26/16 12:00 BP 142/87 07/26/16 12:00 Pulse Ox 97 07/26/16 12:00 Intake & Output 07/25/16 07/26/16 07/26/16 18:59 06:59 18:59 Intake Total 405 360 593 Output Total 325 60 Balance 80 300 593 Weight 84.5 kg Intake: IV 50 360 160 Heparin Sodium,Porcine/ 200 D5w Pmx 25,000 unit In Dextrose/Water 1 500ml. bag @ 14.43 UNITS/KG/HR 25 mls/hr IV .Q20H [facility] Rx #:[id number] Sodium Chloride 0.9% 1, 160 160 000 ml @ 20 mls/hr IV . Q24H [facility] Rx#:[id number] Intake, IV Titration 16 Amount Heparin Sodium,Porcine/ 16 D5w Pmx 25,000 unit In Dextrose/Water 1 500ml. bag @ 800 UNIT/HR 16 mls/ hr IV .Q24H [facility] Rx#: [id number] Oral 355 417 Output: Urine 325 60 Other: Voiding Method Urinal Urinal # Voids 1 # Bowel Movements 1 - Exam PHYSICAL EXAMINATION: HEENT: Head is atraumatic, normocephalic. Pupils equal, round. Neck is supple. There is no elevated jugular venous pressure. HEART EXAMINATION: Heart sounds regular, S1 and S2 with a systolic murmur. CHEST EXAMINATION: Lungs are clear to auscultation and precussion. No chest wall tenderness is noted on palpation or with deep breathing. ABDOMEN: Soft, nontender. Bowel sounds are heard. No organomegaly noted. EXTREMITIES: 2+ peripheral pulses with no evidence of peripheral edema and no calf tenderness noted. AV fistula to left upper arm, positive bruit and thrill. NEUROLOGIC patient is awake, alert and oriented x3. . - Labs CBC & Chem 7: 07/26/16 06:10 07/26/16 06:10 Labs: Abnormal Lab Results - Last 24 Hours (Table) 07/25/16 07/25/16 07/26/16 Range/Units 20:46 22:38 06:10 RBC (4.30-5.90) m/uL Hgb (13.0-17.5) gm/dL Hct (39.0-53.0) % MCV (80.0-100.0) fL RDW (11.5-15.5) % Lymphocytes # (Manual) (1.0-4.8) k/uL APTT 56.7 H (22.0-30.0) sec BUN (9-20) mg/dL Creatinine (0.66-1.25) mg/dL Glucose (74-99) mg/dL Magnesium 2.5 H (1.6-2.3) mg/dL Total Protein (6.3-8.2) g/dL Albumin (3.5-5.0) g/dL Urine Protein 2+ H (Negative) Urine Glucose (UA) 1+ H (Negative) Urine Blood Trace H (Negative) Urine Bacteria Rare H (None) /hpf 07/26/16 07/26/16 07/26/16 Range/Units 06:10 06:10 06:10 RBC 2.55 L (4.30-5.90) m/uL Hgb 8.8 L (13.0-17.5) gm/dL Hct 27.4 L (39.0-53.0) % MCV 107.6 H (80.0-100.0) fL RDW 16.2 H (11.5-15.5) % Lymphocytes # (Manual) 0.8 L (1.0-4.8) k/uL APTT 63.5 H (22.0-30.0) sec BUN 46 H (9-20) mg/dL Creatinine 5.26 H* (0.66-1.25) mg/dL Glucose 136 H (74-99) mg/dL Magnesium (1.6-2.3) mg/dL Total Protein 6.2 L (6.3-8.2) g/dL Albumin 3.2 L (3.5-5.0) g/dL Urine Protein (Negative) Urine Glucose (UA) (Negative) Urine Blood (Negative) Urine Bacteria (None) /hpf Microbiology - Last 24 Hours (Table) 07/25/16 20:46 Urine Culture - Preliminary Urine,Voided Assessment and Plan Plan: Assessment and plan #1 non-ST elevation myocardial infarction status post cardiac catheterization, found to have significant two-vessel disease as well as mild aortic stenosis. #2 renal failure, on hemodialysis #3 history of MRSA, nasal swab positive for staph #4 hypertension #5 ischemic heart disease From cardiology standpoint, we will resume heparin drip at 800 units an hour with no bolus. We will monitor the patient's hemoglobin. We will continue to follow the patient perioperatively and provide further recommendations accordingly. ENVIRONMENTAL MANAGER note has been reviewed, I agree with a documented findings and plan of care. Patient was seen and examined.
--- NOTE | 2016-07-26 16:26 | US ---
EXAMINATION TYPE: US lower ext pseudo artery RT DATE OF EXAM: 07/26/2016 4:11 PM COMPARISON: NONE CLINICAL HISTORY: R/O PSA. Rule out Pseudo. Patient states having heart cath done x few days ago. P atient states having compression and band on area today. Limited study due to patient unable to tole rate pressure over area and swelling limited visualization. In right groin, vascular lesion seen = .9 cm with to and fro color doppler observed. IMPRESSION: 1. 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
--- NOTE | 2016-07-26 18:11 | P.CON ---
Consult Note - . Consult date: 07/26/16 Assessment/Plan:: This is a 80-year-old male known to infectious disease service as he has been treated for infection to his shunt on his left arm before as well as ulceration to his left heel. Patient states that he presented to [facility] because he was initially having epistaxis. This was on Friday. The bleeding was controlled and he was discharged home. He then returned on Friday as he woke up in the morning at 2 AM with a cough and shortness of breath that had been going on but continued to worsen. Patient was diagnosed with a non-ST elevated myocardial infarction and was transferred to [facility] on July 25 for heart catheterization that found two-vessel disease of the proximal LAD and proximal RCA with mild aortic stenosis. He has been evaluated by cardiothoracic surgery and is scheduled for CABG on June 28. Patient does have history of end-stage renal disease on hemodialysis Friday and Friday and is followed by Dr. Fernandez. He denies any problems with his dialysis AV fistula in his left arm. [facility] under the care of Dr. Carey. He has a total contact cast to the left lower extremity which is scheduled to be removed today. Regarding his epistaxis, patient was seen by Dr. Chen on underwent flexible nasal endoscopy finding a right anterior septal ulcer. Dr. Lucas is following from pulmonary medicine. Upon review of his previous wound cultures, he does have history of MRSA. Patient does have history of rheumatoid arthritis on prednisone only. Please see the consult is dictated by nurse practitioner Mrs. Lorraine Nichole. The total contact cast has now been removed by the team from the wound center. Local wound care has been applied to the ulceration. He is appropriately anxious for the upcoming cardiovascular surgery. The family is present. The family is reassured that the cardiac thoracic surgeon, Dr. Alcaraz is an excellent surgeon. We will proceed with surgery, Friday. Is having ultrasound of his right groin to make sure is not a pseudoaneurysm. Local wound care with the silver product to the foot ulcer is being utilized. It is about an infected ulceration and needs ongoing local wound care. The ulceration is not a contraindication for this procedure of coronary artery bypass grafting. We will monitor. I agree with evaluation, assessment and plan is dictated by nurse practitioner Mrs. Lorraine Nichole.
--- NOTE | 2016-07-26 21:38 | PN ---
This 80-year-old gentleman who was admitted with significant coronary artery disease, slated to undergo coronary artery bypass grafting. The patient also had anemia. The patient also had epistaxis. The patient is being closely monitored at this time. The patient has anemia. Hemoglobin 8.8. Dr. Peters has seen the patient. Patient also had chronic renal failure, on hemodialysis at this time. Hepatitis panel is negative. Ejection fraction 45% with mild to moderate aortic stenosis also. PAST MEDICAL HISTORY: Reviewed. REVIEW OF SYSTEMS: CARDIOVASCULAR: As mentioned earlier. GI: As mentioned earlier. : No dysuria. Nervous system: No numbness, weakness. Current medications are reviewed and include: 1. Tylenol 650 q.6 p.r.n. 2. Kimball. 3. Zyloprim 100 mg daily. 4. Xanax 0.25 t.i.d. 6. Aspirin 81 mg p.o. daily. 7. Lipitor. 8. PhosLo. 9. Cefazolin. 10. Vitamin D3. 11. Pepcid. 12. Folic acid. 13. Heparin. 14. Magnesium. 15. Metoprolol. 17. P.r.n. medications. PHYSICAL EXAMINATION: The patient is alert and oriented times three. Pulse is 90, blood pressure 140/87, respiratory rate 22, temperature 97 degrees. Pulse ox 97% on room air. HEENT: Conjunctivae normal. NECK : No jugular venous distention. CARDIOVASCULAR: S1, S2 muffled. Ejection systolic murmur. RESPIRATORY: Breath sounds diminished at the bases. A few rhonchi, no crackles. ABDOMEN: Soft, obese, nontender. Legs: Minimal edema. No swelling. Nervous system: Higher functions as mentioned earlier. Moves all four limbs. No focal deficits. SKIN: No ulcer, rash or bleeding. LABS: WBC 7.9, hemoglobin is 8.8 and creatinine is 5.26. TSH is 3. ASSESSMENT: 1. Acute non-ST segment elevation myocardial infarction with chest pains, status post cardiac catheterization awaiting coronary artery bypass grafting. 2. Chronic renal failure, disease Stage V on hemodialysis. 3. Anemia, macrocytic possibly secondary to hemodialysis and renal failure. 4. Epistaxis. 5. Hematoma, right groin. 6. Increased random blood sugar. 7. History of congestive heart failure. 8. Hypertension. 9. Hyperlipidemia. 10. History of degenerative joint disease. 11. History of myocardial infarction. 12. History of rheumatoid arthritis. 13. History of multiple organisms grown from the wound, wound culture last year now with negative blood cultures. 14. 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 15. Tonsillectomy. 16. History of degenerative joint disease. 17. FULL CODE. RECOMMENDATIONS AND DISCUSSION: In this 80-year-old gentleman who presented with multiple medical issues, we will monitor the patient closely, continue the current medications. Continue symptomatic treatment. Repeat labs. Possible continue hemodialysis. Duplex noted. Closely follow with Cardiology. See orders for details. Further recommendations to follow. MTDD
[2016-07-27] MEDS: HYDROcodone/APAP 5-325MG 1 EACH TAB PO PRN ×4 (00:10→16:54)
[2016-07-27] MEDS: CALCIUM ACETATE 667 MG CAP PO SCH ×3 (06:16→17:04)
[2016-07-27 07:03] LABS: CHCM 31.6; HCT 25.4 % (39.0-53.0); HDW 2.99; HGB 7.9 gm/dL (13.0-17.5); Hypochromasia Slight; MCH 33.8 pg (25.0-35.0); MCHC 31.2 g/dL (31.0-37.0); MCV 108.3 fL (80.0-100.0); Macrocytosis Marked; Mean Platelet Volume 7.2; RBC 2.34 m/uL (4.30-5.90); WBC 8.6 k/uL (3.8-10.6); WBC (Perox) 9.18
[2016-07-27 07:05] LABS: Calcium 8.6 mg/dL (8.4-10.2); Potassium 4.2 mmol/L (3.5-5.1); Total Bilirubin 0.6 mg/dL (0.2-1.3); Total Protein 6.1 g/dL (6.3-8.2)
[2016-07-27 07:27] LABS: Add Differential Manual Differential
[2016-07-27 07:29] LABS: Nucleated Red Blood Cells 0 /100 WBC (0-0); Polychromasia Present; Total Cells Counted 100
[2016-07-27] MEDS: FOLIC ACID 1 MG TAB PO SCH (08:34)
[2016-07-27] MEDS: DOCUSATE 100 MG CAP PO SCH ×2 (08:34→21:08)
[2016-07-27] MEDS: FAMOTIDINE 20 MG TAB PO SCH (08:34)
[2016-07-27] MEDS: ISOSORBIDE MONONITRATE ER 30 MG TAB.ER.24H PO SCH (08:34)
[2016-07-27] MEDS: FUROSEMIDE 20 MG TAB PO SCH (08:34)
[2016-07-27] MEDS: ALLOPURINOL 100 MG TAB PO SCH (08:35)
[2016-07-27] MEDS: MUPIROCIN 2% OINT 22 GM TUBE NASAL SCH ×2 (08:35→21:08)
[2016-07-27] MEDS: METOPROLOL SUCCINATE (ER) 25 MG TAB.ER.24H PO SCH ×2 (08:35→21:08)
[2016-07-27] MEDS: ASPIRIN 81 MG CHEW PO SCH (08:35)
[2016-07-27] MEDS: ATORVASTATIN 10 MG TAB PO SCH (08:35)
[2016-07-27] MEDS: predniSONE 5 MG TAB PO SCH (08:35)
--- NOTE | 2016-07-27 10:02 | US ---
EXAMINATION TYPE: US lower ext pseudo artery RT DATE OF EXAM: 07/27/2016 9:35 AM COMPARISON: 07/26/2016 CLINICAL HISTORY: 80-year-old male recheck of PSA. Floor nurse Coral relayed that patient wore com pression device for 2 hours last night. TECHNIQUE: Targeted sonographic examination on the right groin for assessment of pseudoaneurysm. [place] r Doppler and spectral waveform analysis utilized. FINDINGS: Rescanned right groin, small 9 mm pseudoaneurysm still present with a 3 mm neck noted. Imaging is katheryn hnically difficult as there is extensive bruising and tissue edema. To/fro flow demonstrated in pseud oaneurysm with hypoechoic area surrounding measuring up to 2.2 cm. Brett Grace, open heart nurse present during scan, and stated he would let Dr. Alcaraz know. IMPRESSION: Persisting small 9 mm right-sided pseudoaneurysm. Surrounding hypoechogenicity suggests some associa geraldine 2.2 cm hematoma.
[2016-07-27] MEDS: SODIUM CHLORIDE 0.9% 1,000 ML IV SCH ×2 (10:31→21:08)
--- NOTE | 2016-07-27 11:06 | P.PN ---
Subjective Principal diagnosis: Mr. Xie is a 80-year-old with end-stage renal failure on dialysis Friday. He was admitted with an acute CO and is being prepared for coronary artery bypass graft. Additionally had epistaxis and underwent a endoscopic exam which showed an ulcer in his septum. Supposedly further surgeries for wound for this as well. He has cough otherwise no shortness of breath. Has been dialyzed 3 days this week already and this is the fourth dialysis today. 2.5 L are being ultrafiltrate during the course of this dialysis Friday today. He is stable. Previously supposedly about 8 L were ultrafiltered. On Friday and . No chest pain. No fever chills. Additionally is known to have a newly found also numbness left heel. Objective - Vital Signs Vital signs: Vital Signs Temp 97.0 F L 07/27/16 08:00 Pulse 85 07/27/16 08:00 Resp 16 07/27/16 08:00 BP 124/61 07/27/16 08:00 Pulse Ox 95 07/27/16 08:00 Intake & Output 07/26/16 07/27/16 07/27/16 18:59 06:59 18:59 Intake Total 753 200 180 Output Total 225 300 Balance 528 -100 180 Weight 84.3 kg Intake: IV 320 200 Sodium Chloride 0.9% 1, 320 200 000 ml @ 20 mls/hr IV . Q24H RINA Rx#:[id number] Intake, IV Titration 16 Amount Heparin Sodium,Porcine/ 16 D5w Pmx 25,000 unit In Dextrose/Water 1 500ml. bag @ 800 UNIT/HR 16 mls/ hr IV .Q24H RINA Rx#: [id number] Oral 417 180 Output: Urine 225 300 Other: Voiding Method Urinal Urinal # Voids 2 0 On examination is awake alert oriented comfortable. Currently being dialyzed. HEENT exam no JVP noted neck is supple no facial asymmetry Lungs are significant for an occasional fine crackle good air entry bilaterally A chest x-ray is unremarkable though dated 07/25/2016 2 days ago. Good air entry bilaterally. Heart sounds are unremarkable for any murmur rub gallop Abdomen soft nontender no organomegaly status masses Extremity exam reveals no edema Left heel is under dressing. Neurologically awake alert oriented and alert. - Labs CBC & Chem 7: 07/27/16 05:59 07/27/16 05:54 Labs: Abnormal Lab Results - Last 24 Hours (Table) 07/27/16 07/27/16 Range/Units 05:54 05:59 RBC 2.34 L (4.30-5.90) m/uL Hgb 7.9 L (13.0-17.5) gm/dL Hct 25.4 L (39.0-53.0) % MCV 108.3 H (80.0-100.0) fL RDW 16.0 H (11.5-15.5) % Monocytes # (Manual) 1.2 H (0-1.0) k/uL BUN 59 H (9-20) mg/dL Creatinine 6.93 H* (0.66-1.25) mg/dL Glucose 116 H (74-99) mg/dL Total Protein 6.1 L (6.3-8.2) g/dL Albumin 3.2 L (3.5-5.0) g/dL Microbiology - Last 24 Hours (Table) 07/25/16 20:46 Urine Culture - Preliminary Urine,Voided Assessment and Plan Plan: Impression. 1. ESRD on dialysis Friday. 2. On dialysis today Friday and is the for dialysis because of congestive heart failure noted before currently euvolemic. 2.5 L being ultrafiltrate today or 3 and half hours. 3. Anemia with worsening hemoglobin. Hemoglobin 7.9 down down from 10.1. 4. ASHD with acute CO and plans are being drawn up for coronary artery bypass graft. 5. Septal ulcer in the left side. Going for further ENT 6. History of COPD. Recommendation. Maintain current dialysis schedule. Resume 60 units off darbepoetin, check iron saturation Check phosphorus
--- NOTE | 2016-07-27 11:35 | P.PN ---
<Jorge Grace L - Last Filed: 07/27/16 11:33> Progress Note - Text CV Surgery Nursing Principal diagnosis: Non-ST elevation myocardial infarction, preoperative coronary artery bypass grafting. Patient currently sitting up in bed in no distress. Awake, alert and oriented. Denies chest pain/shortness of breath. The patients is at the bedside, questions answered. Vital Signs: Afebrile Vital Signs - 24 hr 07/26/16 07/26/16 07/26/16 12:00 16:00 20:00 Temperature 97 F L 98.2 F 98.1 F Pulse Rate [ 90 96 102 H Pulse Oximetery ] Respiratory 20 18 18 Rate Blood Pressure 142/87 140/73 143/74 [Right Arm] O2 Sat by Pulse 97 98 97 Oximetry 07/27/16 07/27/16 07/27/16 00:00 04:00 08:00 Temperature 97.0 F L Pulse Rate [ 96 85 85 Pulse Oximetery ] Respiratory 18 18 16 Rate Blood Pressure 152/92 138/68 124/61 [Right Arm] O2 Sat by Pulse 97 95 95 Oximetry Labs: Short CBC 07/27/16 Range/Units 05:59 WBC 8.6 (3.8-10.6) k/uL Hgb 7.9 L (13.0-17.5) gm/dL Hct 25.4 L (39.0-53.0) % Plt Count 159 (150-450) k/uL BMP 07/27/16 05:54 Sodium 139 Potassium 4.2 Chloride 102 Carbon Dioxide 23 BUN 59 H Creatinine 6.93 H* Glucose 116 H Calcium 8.6 Liver Function 07/27/16 Range/Units 05:54 Total Bilirubin 0.6 (0.2-1.3) mg/dL AST 34 (17-59) U/L ALT 39 (21-72) U/L Alkaline Phosphatase 86 (38-126) U/L Albumin 3.2 L (3.5-5.0) g/dL Radiology: Ultrasound right lower extremity report demonstrates a persisting 9 mm right sided pseudoaneurysm. It is also demonstrating and surrounding hypo- echogenicity suggestive of a associated Jessica 2.2 cm hematoma. Lungs: Essentially clear throughout, diminished bilateral bases. Respirations are even and unlabored. O2 sat: 95% on room air. I/S: 1250 mL, reviewed the importance of using his incentive spirometry preoperatively every hour while awake. The patient did give a good return demonstration. Heart: S1S2, regular rhythm and rate, positive systolic murmur heard best at the right sternal border second intercostal space and left sternal border fifth intercostal space. Remote telemetry showing normal sinus rhythm heart rate 81. Abdomen: Soft, Positive bowel sounds present in all 4 quadrants. U/O: Patient is currently on hemodialysis, left upper extremity AV graft with positive thrill and bruit. 24 hr Total: Intake & Output 07/25/16 07/26/16 07/27/16 07/28/16 06:59 06:59 06:59 06:59 Intake Total 795 765 953 180 Output Total 250 385 525 Balance 545 380 428 180 Weight 85.5 kg 84.5 kg 84.3 kg Active Medications Acetaminophen (Tylenol Tab) 650 mg PO Q6HR PRN PRN Reason: Mild Pain or Fever > 100.5 Hydrocodone Bitart/Acetaminophen (Fontana 5-325) 1 each PO Q4HR PRN PRN Reason: Moderate Pain Last Admin: 07/27/16 06:15 Dose: 1 each Allopurinol (Zyloprim) 100 mg PO DAILY [facility] Last Admin: 07/27/16 08:35 Dose: 100 mg Alprazolam (Xanax) 0.25 mg PO Q6HR PRN PRN Reason: Anxiety Aminocaproic Acid (Amicar) 5,000 mg IV ONCE PRN PRN Reason: OPEN HEART Aspirin (Aspirin) 81 mg PO DAILY [facility] Stop: 07/28/16 23:59 Last Admin: 07/27/16 08:35 Dose: 81 mg Aspirin (Aspirin) 81 mg PO ONCE ONE Stop: 07/29/16 05:01 Atorvastatin Calcium (Lipitor) 10 mg PO DAILY [facility] Stop: 07/28/16 23:59 Last Admin: 07/27/16 08:35 Dose: 10 mg Atorvastatin Calcium (Lipitor) 10 mg PO ONCE ONE Stop: 07/29/16 05:01 Calcium Acetate (Phoslo) 667 mg PO TID-W/MEALS [facility] Last Admin: 07/27/16 06:16 Dose: 667 mg Calcium Chloride (Calcium Chloride) 1,000 mg IVP ONCE PRN PRN Reason: OPEN HEART Chlorhexidine Gluconate (Peridex) 15 ml MUCOUS MEM ONCE PRN PRN Reason: OPEN HEART Cholecalciferol (Vitamin D3) 1,000 unit PO DAILY@1200 [facility] Last Admin: 07/26/16 12:23 Dose: 1,000 unit Docusate Sodium (Colace) 100 mg PO BID [facility] Last Admin: 07/27/16 08:34 Dose: 100 mg Famotidine (Pepcid) 20 mg PO DAILY [facility] Last Admin: 07/27/16 08:34 Dose: 20 mg Folic Acid (Folic Acid) 1 mg PO DAILY [facility] Last Admin: 07/27/16 08:34 Dose: 1 mg Furosemide (Lasix) 60 mg PO DAILY [facility] Last Admin: 07/27/16 08:34 Dose: 60 mg Heparin Sodium (Porcine) (Heparin Sodium (1,000 Unit/Ml)) 10,000 unit IV ONCE PRN PRN Reason: OPEN HEART Heparin Sodium (Porcine) (Heparin) 30,000 unit IV ONCE PRN PRN Reason: OPEN HEART Heparin Sodium (Porcine) (Heparin) 30,000 unit IV ONCE PRN PRN Reason: OPEN HEART Heparin Sodium (Porcine) (Heparin) 30,000 unit IV ONCE PRN PRN Reason: OPEN HEART Sodium Chloride (Saline 0.9%) 1,000 mls @ 20 mls/hr IV .Q24H [facility] Last Admin: 07/26/16 20:48 Dose: 20 mls/hr Sodium Chloride (Saline 0.9%) 1,000 mls @ 20 mls/hr IV .Q24H [facility] Last Admin: 07/27/16 10:31 Dose: 20 mls/hr Albumin Human 50 ml/ IV (Solution) 50 mls @ 100 mls/hr IVPB ONCE PRN PRN Reason: OPEN HEART Albumin Human 50 ml/ IV (Solution) 50 mls @ 100 mls/hr IVPB ONCE PRN PRN Reason: OPEN HEART Albumin Human 500 ml/ IV (Solution) 500 mls @ 250 mls/hr IVPB ONCE PRN PRN Reason: OPEN HEART Albumin Human 500 ml/ IV (Solution) 500 mls @ 250 mls/hr IVPB ONCE PRN PRN Reason: OPEN HEART Albumin Human 500 ml/ IV (Solution) 500 mls @ 250 mls/hr IVPB ONCE PRN PRN Reason: OPEN HEART Albumin Human 500 ml/ IV (Solution) 500 mls @ 250 mls/hr IVPB ONCE PRN PRN Reason: OPEN HEART Albumin Human 500 ml/ IV (Solution) 500 mls @ 250 mls/hr IVPB ONCE PRN PRN Reason: OPEN HEART Albumin Human 500 ml/ IV (Solution) 500 mls @ 250 mls/hr IVPB ONCE PRN PRN Reason: OPEN HEART Aminocaproic Acid 5,000 mg/ (Dextrose/Water) 70 mls @ 200 mls/hr IV ONCE PRN PRN Reason: OPEN HEART Aminocaproic Acid 5,000 mg/ (Dextrose/Water) 70 mls @ 200 mls/hr IV ONCE PRN PRN Reason: OPEN HEART Clevidipine 25 mg/ IV Solution 50 mls @ 2 mls/hr IV .Q24H PRN; Protocol; 1 MG/ HR PRN Reason: OPEN HEART Heparin Sodium (Porcine) 5,000 (unit/ Sodium Chloride) 501 mls @ 0 mls/hr IV ONCE PRN; As Directed PRN Reason: OPEN HEART Insulin Human Regular 100 unit (/ Sodium Chloride) 101 mls @ 0 mls/hr IV .Q0M PRN; Titrate PRN Reason: OPEN HEART Lactated Ringer's (Lactated Ringers) 1,000 mls @ 10 mls/hr IV .Q24H PRN PRN Reason: OPEN HEART Nitroglycerin/Dextrose 50 mg/ (IV Solution) 250 mls @ 1.5 mls/hr IV .Q24H PRN; Protocol; 5 MCG/MIN PRN Reason: OPEN HEART Norepinephrine Bitartrate 4 mg (/ Sodium Chloride) 254 mls @ 0 mls/hr IV .Q0M PRN; Protocol; Titrate PRN Reason: OPEN HEART Papaverine HCl 360 mg/ Sodium (Chloride) 102 mls @ 0 mls/hr IV ONCE PRN; As Directed PRN Reason: OPEN HEART Phenylephrine HCl 40 mg/ (Sodium Chloride) 254 mls @ 0 mls/hr IV .Q0M PRN; Protocol; Per Protocol PRN Reason: OPEN HEART Propofol 500 mg/ IV Solution 50 mls @ 0 mls/hr IV .Q0M PRN; Protocol; Titrate PRN Reason: OPEN HEART Protamine Sulfate 250 mg/ IV (Solution) 25 mls @ 0 mls/hr IV ONCE PRN; As Directed PRN Reason: OPEN HEART Cefazolin Sodium 2 gm/ Sodium (Chloride) 30 mls @ 60 mls/hr IVPB ONCE PRN PRN Reason: OPEN HEART Cefazolin Sodium 2,000 mg/ (Sodium Chloride) 30 mls @ 999 mls/hr IVPB ONCE PRN PRN Reason: OPEN HEART Cefazolin Sodium 1,000 mg/ (Sodium Chloride) 1,000 mls @ 999 mls/hr IRRIGATION ONCE PRN PRN Reason: OPEN HEART Isosorbide Mononitrate (Imdur) 30 mg PO DAILY [facility] Last Admin: 07/27/16 08:34 Dose: 30 mg Magnesium Sulfate (Magnesium Sulfate Syg) 16.24 meq IV ONCE PRN PRN Reason: OPEN HEART Mannitol (Osmitrol 25%) 12.5 gm IV ONCE PRN PRN Reason: OPEN HEART Metoprolol Succinate (Toprol Xl) 25 mg PO BID [facility] Stop: 07/28/16 23:59 Last Admin: 07/27/16 08:35 Dose: 25 mg Metoprolol Tartrate (Lopressor) 12.5 mg PO ONCE ONE Stop: 07/29/16 05:01 Mupirocin (Bactroban Oint) 1 applic NASAL BID [facility] Stop: 07/30/16 21:01 Last Admin: 07/27/16 08:35 Dose: 1 applic Naloxone HCl (Narcan) 0.2 mg IV Q2M PRN PRN Reason: Opioid Reversal Nitroglycerin (Nitrostat) 0.4 mg SUBLINGUAL Q5M PRN PRN Reason: Chest Pain Nitroglycerin/Dextrose (Nitro Drip 25 Mg/250 Ml In D5w Pmx) 1 mg IV ONCE PRN PRN Reason: OPEN HEART Phenylephrine HCl (Everton-Synephrine Syringe) 1 mg IV ONCE PRN PRN Reason: OPEN HEART Phenylephrine HCl (Everton-Synephrine Syringe) 1 mg IV ONCE PRN PRN Reason: OPEN HEART Phenylephrine HCl (Everton-Synephrine Syringe) 1 mg IV ONCE PRN PRN Reason: OPEN HEART Phenylephrine HCl (Everton-Synephrine Syringe) 1 mg IV ONCE PRN PRN Reason: OPEN HEART Prednisone () 5 mg PO DAILY [facility] Last Admin: 07/27/16 08:35 Dose: 5 mg Protamine Sulfate (Protamine Sulfate) 250 mg IV ONCE PRN PRN Reason: OPEN HEART Sodium Bicarbonate (Sodium Bicarb 8.4% Syr (1 Meq/Ml)) 50 ml IV ONCE PRN PRN Reason: OPEN HEART Temazepam (Restoril) 15 mg PO HS PRN PRN Reason: Insomnia Plan: 1. Continue aspirin, statin, beta odette. 2. Preoperative testing has been ordered, and reviewed. 3. Plan for urgent off pump coronary artery bypass graft scheduled for 2016. 4. Preoperative teaching reinforced with patient and his , all questions answered at this time. 5. Walking cast removed yesterday and change dressing to left lower extremity per recommendations from Dr. Carey. 6. Dr. Peters will be in this weekend to pack right nare before surgery. 7. Plan discussed with Dr. Juárez, more recommendations to follow. 8. Ultrasound right groin shows 9 mm pseudoaneurysm, interventional radiology consulted, plan is for pseudoaneurysm compression tomorrow a.m. <Guero Juárez - Last Filed: 07/27/16 11:39> Progress Note - Text The patient was seen and examined. I agree with the above assessment and plan. Overall he has no new issues. He denies chest pain or shortness of breath. He was receiving hemodialysis this morning. His right groin ultrasound did show a 9 mm pseudoaneurysm. Interventional radiology will plan for compression tomorrow morning. The remainder of his workup is in progress. He is currently scheduled for surgical intervention by Dr. Alcaraz on July 29.
[2016-07-27 11:38] LABS: Phosphorous 5.5 mg/dL (2.5-4.5)
[2016-07-27] MEDS: CHOLECALCIFEROL 1,000 UNIT TAB PO SCH (12:14)
[2016-07-27] MEDS ORDERED: DARBEPOETIN ALFA 60 MCG/0.3 ML SYRINGE SQ SCH (12:30)
[2016-07-27] MEDS ORDERED: GELATIN SPONGE,ABSORB (SMALL) 1 EACH SPONGE ONE (13:30)
--- NOTE | 2016-07-27 17:07 | PN ---
Mr. Xie has no further bleeding from the groin, but there is evidence of a small pseudoaneurysm of 1 cm or less. I tried to apply FemoStop for 2 hours. It did not help. He is being considered for ultrasound guided compression and/or thrombin injection and this will be done either later this afternoon or tomorrow. No angina, stable. He is going for aortocoronary bypass surgery on Friday. He does have aortic stenosis, but I do not think it is significant. Vital signs are stable. S1 and S2 heard normally. Ejection systolic murmur is audible. Lungs revealed improved air entry. Abdomen and lower extremity exam is unchanged. Right groin has a moderate area of ecchymosis. There is a soft bruit audible.
--- NOTE | 2016-07-27 17:53 | P.PN ---
Subjective Principal diagnosis: cough This is a 80-year-old male known to infectious disease service as he has been treated for infection to his shunt on his left arm before as well as ulceration to his left heel. Patient states that he presented to [facility] because he was initially having epistaxis. This was on Friday. The bleeding was controlled and he was discharged home. He then returned on Friday as he woke up in the morning at 2 AM with a cough and shortness of breath that had been going on but continued to worsen. Patient was diagnosed with a non-ST elevated myocardial infarction and was transferred to [facility] on July 25 for heart catheterization that found two-vessel disease of the proximal LAD and proximal RCA with mild aortic stenosis. He has been evaluated by cardiothoracic surgery and is scheduled for CABG on June 28. Patient does have history of end-stage renal disease on hemodialysis Friday and Friday and is followed by Dr. Fernandez. He denies any problems with his dialysis AV fistula in his left arm. [facility] under the care of Dr. Carey. He has a total contact cast to the left lower extremity which is scheduled to be removed today. Regarding his epistaxis, patient was seen by Dr. Chen on underwent flexible nasal endoscopy finding a right anterior septal ulcer. Dr. Lucas is following from pulmonary medicine. Upon review of his previous wound cultures, he does have history of MRSA. Patient does have history of rheumatoid arthritis on prednisone only. 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 He has been evaluated by interventional radiology and repairs been performed. He is doing well and has the FemoStop in place. He has no other new complaints. No difficulty with the ulcer to the heel. Does have the offloading boot in place. Objective - Vital Signs Vital signs: Vital Signs Temp 97.9 F 07/27/16 16:00 Pulse 87 07/27/16 16:00 Resp 16 07/27/16 16:00 BP 138/67 07/27/16 16:00 Pulse Ox 95 07/27/16 16:00 Intake & Output 07/26/16 07/27/16 07/27/16 18:59 06:59 18:59 Intake Total 753 200 180 Output Total 225 300 Balance 528 -100 180 Weight 84.3 kg Intake: IV 320 200 Sodium Chloride 0.9% 1, 320 200 000 ml @ 20 mls/hr IV . Q24H RINA Rx#:[id number] Intake, IV Titration 16 Amount Heparin Sodium,Porcine/ 16 D5w Pmx 25,000 unit In Dextrose/Water 1 500ml. bag @ 800 UNIT/HR 16 mls/ hr IV .Q24H RINA Rx#: [id number] Oral 417 180 Output: Urine 225 300 Other: Voiding Method Urinal Urinal # Voids 2 0 0 - Exam Gen: This is a 80-year-old male. He is sitting on the edge of the bed appears to be in no acute distress. HEENT: Head is atraumatic, normocephalic. Pupils equal, round. Sclerae is anicteric. Conjunctiva pink. Mucous members of the mouth are moist. No thrush noted. NECK: Supple. No JVD. No lymphadenopathy. No thyromegaly. LUNGS: Clear to auscultation. No wheezes or rhonchi. No intercostal retractions. HEART: Regular rate and rhythm. No murmur. ABDOMEN: Soft. Bowel sounds are present. No masses. No tenderness. EXTREMITIES: No pedal edema. No calf tenderness. Total contact cast was removed. The ulceration to the left heel is clean without significant purulence noted drainage. Silver dressing is in place. Dialysis graft of the left arm is intact. NEUROLOGICAL: Patient is awake, alert and oriented x 3 - Labs CBC & Chem 7: 07/27/16 05:59 07/27/16 05:54 Labs: Abnormal Lab Results - Last 24 Hours (Table) 07/27/16 07/27/16 07/27/16 Range/Units 05:54 05:54 05:59 RBC 2.34 L (4.30-5.90) m/uL Hgb 7.9 L (13.0-17.5) gm/dL Hct 25.4 L (39.0-53.0) % MCV 108.3 H (80.0-100.0) fL RDW 16.0 H (11.5-15.5) % Monocytes # (Manual) 1.2 H (0-1.0) k/uL BUN 59 H (9-20) mg/dL Creatinine 6.93 H* (0.66-1.25) mg/dL Glucose 116 H (74-99) mg/dL Phosphorus 5.5 H (2.5-4.5) mg/dL Iron 30 L (49-181) ug/dL % Saturation 11.0 L (20-50) % Total Protein 6.1 L (6.3-8.2) g/dL Albumin 3.2 L (3.5-5.0) g/dL Microbiology - Last 24 Hours (Table) 07/25/16 20:46 Urine Culture - Final Urine,Voided Laboratory Results WBC 8.6 k/uL (3.8-10.6) 07/27/16 05:59 RBC 2.34 m/uL (4.30-5.90) L 07/27/16 05:59 Hgb 7.9 gm/dL (13.0-17.5) L 07/27/16 05:59 Hct 25.4 % (39.0-53.0) L 07/27/16 05:59 MCV 108.3 fL (80.0-100.0) H 07/27/16 05:59 MCH 33.8 pg (25.0-35.0) 07/27/16 05:59 MCHC 31.2 g/dL (31.0-37.0) 07/27/16 05:59 RDW 16.0 % (11.5-15.5) H 07/27/16 05:59 Plt Count 159 k/uL (150-450) 07/27/16 05:59 Neutrophils % 72 % 07/25/16 06:21 Neutrophils % (Manual) 63.0 % 07/27/16 05:59 Band Neutrophils % 0.5 % 07/26/16 06:10 Lymphocytes % 12 % 07/25/16 06:21 Lymphocytes % (Manual) 17.0 % 07/27/16 05:59 Monocytes % 10 % 07/25/16 06:21 Monocytes % (Manual) 14.0 % 07/27/16 05:59 Eosinophils % 2 % 07/25/16 06:21 Eosinophils % (Manual) 6.0 % 07/27/16 05:59 Basophils % 1 % 07/25/16 06:21 Myelocytes % 0.5 % 07/26/16 06:10 Neutrophils # 5.7 k/uL (1.3-7.7) 07/25/16 06:21 Neutrophils # (Manual) 5.4 k/uL (1.3-7.7) 07/27/16 05:59 Lymphocytes # 0.9 k/uL (1.0-4.8) L 07/25/16 06:21 Lymphocytes # (Manual) 1.5 k/uL (1.0-4.8) 07/27/16 05:59 Monocytes # 0.8 k/uL (0-1.0) 07/25/16 06:21 Monocytes # (Manual) 1.2 k/uL (0-1.0) H 07/27/16 05:59 Eosinophils # 0.2 k/uL (0-0.7) 07/25/16 06:21 Eosinophils # (Manual) 0.5 k/uL (0-0.7) 07/27/16 05:59 Basophils # 0.0 k/uL (0-0.2) 07/25/16 06:21 Nucleated RBCs 0 /100 WBC (0-0) 07/27/16 05:59 Manual Slide Review Performed 07/26/16 06:10 Polychromasia Present 07/27/16 05:59 Hypochromasia Slight 07/27/16 05:59 Poikilocytosis (manual Present 07/26/16 06:10 Anisocytosis Slight 07/26/16 06:10 Macrocytosis Marked 07/27/16 05:59 PT 11.2 sec (9.0-12.0) 07/26/16 06:10 INR 1.1 (<1.1) 07/26/16 06:10 APTT 24.2 sec (22.0-30.0) 07/26/16 21:30 Sodium 139 mmol/L (137-145) 07/27/16 05:54 Potassium 4.2 mmol/L (3.5-5.1) 07/27/16 05:54 Chloride 102 mmol/L (98-107) 07/27/16 05:54 Carbon Dioxide 23 mmol/L (22-30) 07/27/16 05:54 Anion Gap 14 mmol/L 07/27/16 05:54 BUN 59 mg/dL (9-20) H 07/27/16 05:54 Creatinine 6.93 mg/dL (0.66-1.25) H* 04/08/17 05:54 Est GFR (MDRD) Af Amer 9 (>60 ml/min/1.73 sqM) 07/27/16 05:54 Est GFR (MDRD) Non-Af 8 (>60 ml/min/1.73 sqM) 07/27/16 05:54 Glucose 116 mg/dL (74-99) H 07/27/16 05:54 POC Glucose (mg/dL) 113 mg/dL (75-99) H 07/25/16 06:54 POC Glu [employer] Machine Operator ID Erika Elkins 07/25/16 06:[address] Glu mg/dL 111 mg/dL 07/25/16 06:21 Hemoglobin A1c 5.5 % (4.2-6.1) 07/25/16 06:21 Calcium 8.6 mg/dL (8.4-10.2) 07/27/16 05:54 Phosphorus 5.5 mg/dL (2.5-4.5) H 07/27/16 05:54 Magnesium 2.5 mg/dL (1.6-2.3) H 07/26/16 06:10 Iron 30 ug/dL (49-181) L 07/27/16 05:54 TIBC 273 ug/dL (261-462) 07/27/16 05:54 % Saturation 11.0 % (20-50) L 07/27/16 05:54 Total Bilirubin 0.6 mg/dL (0.2-1.3) 07/27/16 05:54 AST 34 U/L (17-59) 07/27/16 05:54 ALT 39 U/L (21-72) 07/27/16 05:54 Alkaline Phosphatase 86 U/L (38-126) 07/27/16 05:54 NT-Pro-B Natriuret Pep 92209 pg/mL 07/25/16 06:21 Total Protein 6.1 g/dL (6.3-8.2) L 07/27/16 05:54 Albumin 3.2 g/dL (3.5-5.0) L 07/27/16 05:54 Triglycerides 78 mg/dL (<150) 07/26/16 06:10 Cholesterol 143 mg/dL (<200) 07/26/16 06:10 LDL Cholesterol, Calc 72 mg/dL (0-99) 07/26/16 06:10 HDL Cholesterol 55 mg/dL (40-60) 07/26/16 06:10 TSH 3.000 mIU/L (0.465-4.680) 07/26/16 06:10 Urine Color Light Yellow 07/25/16 20:46 Urine Appearance Clear (Clear) 07/25/16 20:46 Urine pH 8.0 (5.0-8.0) 07/25/16 20:46 Ur Specific [place] 1.007 (1.001-1.035) 07/25/16 20:46 Urine Protein 2+ (Negative) H 07/25/16 20:46 Urine Glucose (UA) 1+ (Negative) H 07/25/16 20:46 Urine Ketones Negative (Negative) 07/25/16 20:46 Urine Blood Trace (Negative) H 07/25/16 20:46 Urine Nitrite Negative (Negative) 07/25/16 20:46 Urine Bilirubin Negative (Negative) 07/25/16 20:46 Urine Urobilinogen <2.0 mg/dL (<2.0) 07/25/16 20:46 Ur Leukocyte Esterase Negative (Negative) 07/25/16 20:46 Urine RBC <1 /hpf (0-5) 07/25/16 20:46 Urine WBC <1 /hpf (0-5) 07/25/16 20:46 Ur Squamous Epith Cells <1 /hpf (0-4) 07/25/16 20:46 Urine Bacteria Rare /hpf (None) H 07/25/16 20:46 Stool Occult Blood Positive (Negative) 07/25/16 20:46 Hepatitis A IgM Ab NEGATIVE 07/26/16 06:10 Hep Bs Antigen Negative 07/26/16 06:10 Hep B Core IgM Ab NEGATIVE 07/26/16 06:10 Hep C IgG Ab Negative (Negative) 07/26/16 06:10 Microbiology 07/25/16 20:46 Urine,Voided Urine Culture - Final Assessment and Plan (1) Non-STEMI (non-ST elevated myocardial infarction) Status: Acute (2) Diabetic foot ulcer associated with type 2 diabetes mellitus Narrative/Plan: The total contact cast has now been removed by the team from the wound center. Local wound care has been applied to the ulceration. He is appropriately anxious for the upcoming cardiovascular surgery. The family is present. The family is reassured that the cardiac thoracic surgeon, Dr. Alcaraz is an excellent surgeon. We will proceed with surgery, Friday. Is having ultrasound of his right groin to make sure is not a pseudoaneurysm. Local wound care with the silver product to the foot ulcer is being utilized. It is about an infected ulceration and needs ongoing local wound care. The ulceration is not a contraindication for this procedure of coronary artery bypass grafting. We will monitor. Had pseudoaneurysm repair and other than discomfort is doing well Status: Acute
[2016-07-27] MEDS: HYDROmorphone 1 MG/ML 1 ML SYRINGE IVP PRN ×2 (18:46→22:48)
--- NOTE | 2016-07-27 19:11 | P.GSCN ---
History of Present Illness Consult date: 07/27/16 Reason for Consult: <1cm right femoral pseudoaneurysm post cardiac catheterization History of present illness: impression; 1. <1cm right common femoral pseudoanuerysm after cardiac catheterization performed 07/25/2016 2. s/p compression therapy of right common femoral pseudoaneurysm 07/27/2016 with post-procedure duplex demonstrating resolution of pseudoaneurysm 3. CAD requiring CABG scheduled on 07/29/2016 4. Hemodialysis dependent renal failure 5. Rheumatoid arthritis 6. Left heel ulcer plan; 1. repeat right femoral duplex in am; 2. asymptomatic <1cm pseudoaneurysm of the groin; this is a tiny pseudoaneurysm and is best observed if it recurs HPI; 80 y/o man, with aforementioned history, noted to have <1cm right common femoral pseudoaneurysm. Treated successfully with compression this afternoon. Scheduled for repeat duplex in am. PMHx, PSHx, Habits, Allergies as noted above PE; EXTR; right groin demonstrates soft tissue contusion and fullness; palpable femoral pulse; right popiteal and dorsalis pedis pulse is also palpable, foot viable Past Medical History Past Medical History: Heart Failure, Dialysis, Hyperlipidemia, Hypertension, Myocardial Infarction ([place]), Osteoarthritis (OA), Renal Disease, Rheumatoid Arthritis (RA) Additional Past Medical History / Comment(s): Coronary artery disease with previous myocardial infarction 15 years ago, end-stage renal disease on hemodialysis from [facility] therapy for rheumatoid arthritis, rheumatoid arthritis diagnosed 40 years ago and currently on prednisone only, left lower extremity ulcer being followed up at the wound center, hyperlipidemia, gout, mild aortic stenosis, CHF mild, chronic anemia, hypertension, previous history of staphylococcal and enterococcal wound infection. Patient had MRSA. 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 No medical marijuana, marijuana, street drug use. He currently lives at home with his and 2 dogs. He served in the [employer] for 8 years. Patient currently works in [employer] 6-7 days per week. Past Drug Use History: None Reported - Past Family History Father Family Medical History: Coronary Artery Disease (CAD) Additional Family Medical History / Comment(s): father in a car accident Mother Family Medical History: No Reported History Additional Family Medical History / Comment(s): mother of old age Medications and Allergies Home Medications Medication Instructions Recorded Confirmed Type Allopurinol [Zyloprim] 100 mg PO DAILY 02/10/15 07/24/16 History Aspirin [Adult Low Dose Aspirin EC] 81 mg PO DAILY 02/10/15 07/24/16 History Cholecalciferol [Vitamin D3] 1,000 unit PO DAILY@1200 02/10/15 07/24/16 History Famotidine [Pepcid] 20 mg PO BID 02/10/15 07/24/16 History Folic Acid 1 mg PO DAILY 02/10/15 07/24/16 History predniSONE 5 mg PO DAILY 02/10/15 07/24/16 History Atorvastatin [Lipitor] 10 mg PO DAILY 08/08/15 07/24/16 History HYDROcodone/APAP 10-325MG [[place] 1 tab PO TID 08/08/15 07/24/16 History 10-325] Metoprolol Succinate [Toprol XL] 25 mg PO BID 08/08/15 07/24/16 History Calcium Acetate [Phoslo] 667 mg PO TID 07/24/16 07/24/16 History Docusate [Colace] 100 mg PO BID 07/24/16 07/24/16 History Furosemide [Lasix] 60 mg PO DAILY 07/24/16 07/24/16 History Isosorbide Mononitrate ER [Imdur] 30 mg PO DAILY 07/24/16 07/24/16 History Allergies Allergy/AdvReac Type Severity Reaction Status Date / Time No Known Allergies Allergy Verified 07/24/16 19:59 Surgical - Exam Vital Signs Temp Pulse Resp BP Pulse Ox 98.7 F 84 16 136/73 96 07/24/16 20:46 07/24/16 20:46 07/24/16 20:46 07/24/16 20:46 07/24/16 20:46 Results - Labs 07/27/16 05:59 07/27/16 05:54 Abnormal Lab Results - Last 24 Hours (Table) 07/27/16 07/27/16 07/27/16 Range/Units 05:54 05:54 05:59 RBC 2.34 L (4.30-5.90) m/uL Hgb 7.9 L (13.0-17.5) gm/dL Hct 25.4 L (39.0-53.0) % MCV 108.3 H (80.0-100.0) fL RDW 16.0 H (11.5-15.5) % Monocytes # (Manual) 1.2 H (0-1.0) k/uL BUN 59 H (9-20) mg/dL Creatinine 6.93 H* (0.66-1.25) mg/dL Glucose 116 H (74-99) mg/dL Phosphorus 5.5 H (2.5-4.5) mg/dL Iron 30 L (49-181) ug/dL % Saturation 11.0 L (20-50) % Total Protein 6.1 L (6.3-8.2) g/dL Albumin 3.2 L (3.5-5.0) g/dL Microbiology - Last 24 Hours (Table) 07/25/16 20:46 Urine Culture - Final Urine,Voided Diabetes panel 07/27/16 Range/Units 05:54 Sodium 139 (137-145) mmol/L Potassium 4.2 (3.5-5.1) mmol/L Chloride 102 (98-107) mmol/L Carbon Dioxide 23 (22-30) mmol/L BUN 59 H (9-20) mg/dL Creatinine 6.93 H* (0.66-1.25) mg/dL Glucose 116 H (74-99) mg/dL Calcium 8.6 (8.4-10.2) mg/dL AST 34 (17-59) U/L ALT 39 (21-72) U/L Alkaline Phosphatase 86 (38-126) U/L Total Protein 6.1 L (6.3-8.2) g/dL Albumin 3.2 L (3.5-5.0) g/dL Calcium panel 07/27/16 07/27/16 Range/Units 05:54 05:54 Calcium 8.6 (8.4-10.2) mg/dL Phosphorus 5.5 H (2.5-4.5) mg/dL Albumin 3.2 L (3.5-5.0) g/dL Pituitary panel 07/27/16 Range/Units 05:54 Sodium 139 (137-145) mmol/L Potassium 4.2 (3.5-5.1) mmol/L Chloride 102 (98-107) mmol/L Carbon Dioxide 23 (22-30) mmol/L BUN 59 H (9-20) mg/dL Creatinine 6.93 H* (0.66-1.25) mg/dL Glucose 116 H (74-99) mg/dL Calcium 8.6 (8.4-10.2) mg/dL Adrenal panel 07/27/16 Range/Units 05:54 Sodium 139 (137-145) mmol/L Potassium 4.2 (3.5-5.1) mmol/L Chloride 102 (98-107) mmol/L Carbon Dioxide 23 (22-30) mmol/L BUN 59 H (9-20) mg/dL Creatinine 6.93 H* (0.66-1.25) mg/dL Glucose 116 H (74-99) mg/dL Calcium 8.6 (8.4-10.2) mg/dL Total Bilirubin 0.6 (0.2-1.3) mg/dL AST 34 (17-59) U/L ALT 39 (21-72) U/L Alkaline Phosphatase 86 (38-126) U/L Total Protein 6.1 L (6.3-8.2) g/dL Albumin 3.2 L (3.5-5.0) g/dL
[2016-07-28] MEDS: HYDROmorphone 1 MG/ML 1 ML SYRINGE IVP PRN ×2 (03:54→21:21)
[2016-07-28] MEDS: CALCIUM ACETATE 667 MG CAP PO SCH ×3 (06:31→17:20)
[2016-07-28 07:04] LABS: Aty Lym Flag Slight; CH 33.8; CHCM 31.5; HCT 26.5 % (39.0-53.0); HDW 3.11; HGB 8.5 gm/dL (13.0-17.5); Hypochromasia Slight; MCH 34.5 pg (25.0-35.0); MCHC 32.1 g/dL (31.0-37.0); MCV 107.7 fL (80.0-100.0); Macrocytosis Marked; Mean Platelet Volume 7.3; RBC 2.47 m/uL (4.30-5.90); RDW 15.7 % (11.5-15.5); WBC 8.8 k/uL (3.8-10.6); WBC (Perox) 8.87
[2016-07-28 07:13] LABS: Calcium 8.9 mg/dL (8.4-10.2); Potassium 4.2 mmol/L (3.5-5.1); Total Bilirubin 0.6 mg/dL (0.2-1.3); Total Protein 6.5 g/dL (6.3-8.2)
[2016-07-28 07:34] LABS: Add Differential Manual Differential
[2016-07-28 07:37] LABS: Nucleated Red Blood Cells 0 /100 WBC (0-0); Polychromasia Present; Total Cells Counted 100
--- NOTE | 2016-07-28 08:17 | P.PN ---
Progress Note - Text Duplex from 07/28/2016 of the right groin demonstrates no evidence of pseudoaneurysm. Normal flow through femoral vessels. Available as needed. Thanks
[2016-07-28] MEDS: MUPIROCIN 2% OINT 22 GM TUBE NASAL SCH ×2 (09:19→21:17)
[2016-07-28] MEDS: FUROSEMIDE 20 MG TAB PO SCH (09:19)
[2016-07-28] MEDS: ASPIRIN 81 MG CHEW PO SCH (09:20)
[2016-07-28] MEDS: ATORVASTATIN 10 MG TAB PO SCH (09:20)
[2016-07-28] MEDS: ALLOPURINOL 100 MG TAB PO SCH (09:20)
[2016-07-28] MEDS: ISOSORBIDE MONONITRATE ER 30 MG TAB.ER.24H PO SCH (09:20)
[2016-07-28] MEDS: DOCUSATE 100 MG CAP PO SCH ×2 (09:20→21:17)
[2016-07-28] MEDS: FAMOTIDINE 20 MG TAB PO SCH (09:21)
[2016-07-28] MEDS: FOLIC ACID 1 MG TAB PO SCH (09:21)
[2016-07-28] MEDS: METOPROLOL SUCCINATE (ER) 25 MG TAB.ER.24H PO SCH ×2 (09:21→21:17)
[2016-07-28] MEDS: predniSONE 5 MG TAB PO SCH (09:21)
[2016-07-28] MEDS: SODIUM CHLORIDE 0.9% 1,000 ML IV SCH ×2 (09:22→21:16)
--- NOTE | 2016-07-28 10:05 | US ---
EXAMINATION TYPE: US lower ext pseudo artery RT DATE OF EXAM: 07/28/2016 8:19 AM COMPARISON: 12/27/2016 CLINICAL HISTORY: 80-year-old male follow-up Pseudoaneurysm . Re check right groin s/p pseudo status post directed compression. TECHNIQUE: Multiple sonographic images of the right groin at the site of patient's known pseudoaneury sm. FINDINGS: Redemonstrated hematoma in the right groin. This measures approximately 1.8 cm versus 2.2 cm, previou sly. There may be a tiny residual 7 mm pseudoaneurysm space but no internal flow is detected and the pseudoaneurysm neck is also no longer detected. The adjacent arterial branch remains patent. Assistance Representative notes: Previous psuedo within right groin appears thrombosed s/p compression on 07/27/16 Dr Samaniego present in room during exam, results given to her IMPRESSION: Residual 1.8 cm right groin hematoma with findings suggesting interval pseudoaneurysm thrombosis. The re is either hypoechoic acute thrombus vs a possible tiny residual 7 mm pseudoaneurysm space that laura ws no appreciable flow. The pseudoaneurysm neck also appears obliterated.
--- NOTE | 2016-07-28 10:29 | P.PN ---
<Jorge Grace - Last Filed: 07/28/16 10:22> Progress Note - Text CV Surgery Nursing Principal diagnosis: Non-ST elevation myocardial infarction, preoperative coronary artery bypass grafting. Patient currently sitting up in bed in no distress. Awake, alert and oriented. Denies chest pain/shortness of breath. The patients is at the bedside, questions answered. Patient awake and alert, no distress noted, no specific complaints. He is sitting up to the bedside chair. Vital Signs: Afebrile Vital Signs - 24 hr 07/27/16 07/27/16 07/27/16 11:44 16:00 20:00 Temperature 97.1 F L 97.9 F 97.7 F Pulse Rate [ 78 87 84 Pulse Oximetery ] Respiratory 16 16 18 Rate Blood Pressure 134/67 138/67 117/60 [Right Arm] O2 Sat by Pulse 99 95 97 Oximetry 07/28/16 07/28/16 07/28/16 00:00 04:00 07:37 Temperature 97.6 F Pulse Rate [ 81 86 81 Pulse Oximetery ] Respiratory 18 18 16 Rate Blood Pressure 139/74 146/71 132/66 [Right Arm] O2 Sat by Pulse 96 96 95 Oximetry Labs: Short CBC 07/28/16 Range/Units 06:26 WBC 8.8 (3.8-10.6) k/uL Hgb 8.5 L (13.0-17.5) gm/dL Hct 26.5 L (39.0-53.0) % Plt Count 192 (150-450) k/uL BMP 07/28/16 06:26 Sodium 141 Potassium 4.2 Chloride 102 Carbon Dioxide 26 BUN 43 H Creatinine 5.23 H* Glucose 109 H Calcium 8.9 Liver Function 07/28/16 Range/Units 06:26 Total Bilirubin 0.6 (0.2-1.3) mg/dL AST 37 (17-59) U/L ALT 41 (21-72) U/L Alkaline Phosphatase 92 (38-126) U/L Albumin 3.3 L (3.5-5.0) g/dL Microbiology 07/25/16 20:46 Urine,Voided Urine Culture - Final Lungs: Essentially clear throughout, diminished bilateral bases. Respirations are unlabored. O2 sat: 95% on room air. I/S: 1250 mL, reviewed the importance of using his incentive spirometry preoperatively every hour while awake. The patient did give a good return demonstration. Heart: S1S2, S1S2, regular rhythm and rate, positive systolic murmur heard best at the right sternal border second intercostal space and left sternal border fifth intercostal space. Remote telemetry showing normal sinus rhythm heart rate 84. Abdomen: Soft, Positive bowel sounds present in all 4 quadrants, Dressing to left heel clean dry and intact. Protective cushion boot in place to right heel. U/O: Left upper extremity AV graft with positive thrill and bruit. 20 mL output in the last 8 hours. 24 hr Total: Intake & Output 07/26/16 07/27/16 07/28/16 07/29/16 06:59 06:59 06:59 06:59 Intake Total 765 953 400 0 Output Total 385 525 200 Balance 380 428 200 0 Weight 84.5 kg 84.3 kg 83 kg Active Medications Acetaminophen (Tylenol Tab) 650 mg PO Q6HR PRN PRN Reason: Mild Pain or Fever > 100.5 Hydrocodone Bitart/Acetaminophen (Spencer 5-325) 1 each PO Q4HR PRN PRN Reason: Moderate Pain Last Admin: 07/27/16 16:54 Dose: 1 each Allopurinol (Zyloprim) 100 mg PO DAILY [facility] Last Admin: 07/28/16 09:20 Dose: 100 mg Alprazolam (Xanax) 0.25 mg PO Q6HR PRN PRN Reason: Anxiety Aminocaproic Acid (Amicar) 5,000 mg IV ONCE PRN PRN Reason: OPEN HEART Aspirin (Aspirin) 81 mg PO DAILY [facility] Stop: 07/28/16 23:59 Last Admin: 07/28/16 09:20 Dose: 81 mg Aspirin (Aspirin) 81 mg PO ONCE ONE Stop: 07/29/16 05:01 Atorvastatin Calcium (Lipitor) 10 mg PO DAILY [facility] Stop: 07/28/16 23:59 Last Admin: 07/28/16 09:20 Dose: 10 mg Atorvastatin Calcium (Lipitor) 10 mg PO ONCE ONE Stop: 07/29/16 05:01 Calcium Acetate (Phoslo) 667 mg PO TID-W/MEALS [facility] Last Admin: 07/28/16 06:31 Dose: 667 mg Calcium Chloride (Calcium Chloride) 1,000 mg IVP ONCE PRN PRN Reason: OPEN HEART Chlorhexidine Gluconate (Peridex) 15 ml MUCOUS MEM ONCE PRN PRN Reason: OPEN HEART Cholecalciferol (Vitamin D3) 1,000 unit PO DAILY@1200 [facility] Last Admin: 07/27/16 12:14 Dose: 1,000 unit Darbepoetin Kevin (Aranesp) 60 mcg SQ Q7D [facility] Last Admin: 07/27/16 16:56 Dose: 60 mcg Docusate Sodium (Colace) 100 mg PO BID [facility] Last Admin: 07/28/16 09:20 Dose: 100 mg Famotidine (Pepcid) 20 mg PO DAILY [facility] Last Admin: 07/28/16 09:21 Dose: 20 mg Folic Acid (Folic Acid) 1 mg PO DAILY [facility] Last Admin: 07/28/16 09:21 Dose: 1 mg Furosemide (Lasix) 60 mg PO DAILY [facility] Last Admin: 07/28/16 09:19 Dose: 60 mg Heparin Sodium (Porcine) (Heparin Sodium (1,000 Unit/Ml)) 10,000 unit IV ONCE PRN PRN Reason: OPEN HEART Heparin Sodium (Porcine) (Heparin) 30,000 unit IV ONCE PRN PRN Reason: OPEN HEART Heparin Sodium (Porcine) (Heparin) 30,000 unit IV ONCE PRN PRN Reason: OPEN HEART Heparin Sodium (Porcine) (Heparin) 30,000 unit IV ONCE PRN PRN Reason: OPEN HEART Hydromorphone HCl (Dilaudid) 0.5 mg IVP Q4HR PRN PRN Reason: Pain Last Admin: 07/28/16 03:54 Dose: 0.5 mg Sodium Chloride (Saline 0.9%) 1,000 mls @ 20 mls/hr IV .Q24H [facility] Last Admin: 07/27/16 21:08 Dose: 20 mls/hr Sodium Chloride (Saline 0.9%) 1,000 mls @ 20 mls/hr IV .Q24H [facility] Last Admin: 07/28/16 09:22 Dose: 20 mls/hr Albumin Human 50 ml/ IV (Solution) 50 mls @ 100 mls/hr IVPB ONCE PRN PRN Reason: OPEN HEART Albumin Human 50 ml/ IV (Solution) 50 mls @ 100 mls/hr IVPB ONCE PRN PRN Reason: OPEN HEART Albumin Human 500 ml/ IV (Solution) 500 mls @ 250 mls/hr IVPB ONCE PRN PRN Reason: OPEN HEART Albumin Human 500 ml/ IV (Solution) 500 mls @ 250 mls/hr IVPB ONCE PRN PRN Reason: OPEN HEART Albumin Human 500 ml/ IV (Solution) 500 mls @ 250 mls/hr IVPB ONCE PRN PRN Reason: OPEN HEART Albumin Human 500 ml/ IV (Solution) 500 mls @ 250 mls/hr IVPB ONCE PRN PRN Reason: OPEN HEART Albumin Human 500 ml/ IV (Solution) 500 mls @ 250 mls/hr IVPB ONCE PRN PRN Reason: OPEN HEART Albumin Human 500 ml/ IV (Solution) 500 mls @ 250 mls/hr IVPB ONCE PRN PRN Reason: OPEN HEART Aminocaproic Acid 5,000 mg/ (Dextrose/Water) 70 mls @ 200 mls/hr IV ONCE PRN PRN Reason: OPEN HEART Aminocaproic Acid 5,000 mg/ (Dextrose/Water) 70 mls @ 200 mls/hr IV ONCE PRN PRN Reason: OPEN HEART Clevidipine 25 mg/ IV Solution 50 mls @ 2 mls/hr IV .Q24H PRN; Protocol; 1 MG/ HR PRN Reason: OPEN HEART Heparin Sodium (Porcine) 5,000 (unit/ Sodium Chloride) 501 mls @ 0 mls/hr IV ONCE PRN; As Directed PRN Reason: OPEN HEART Insulin Human Regular 100 unit (/ Sodium Chloride) 101 mls @ 0 mls/hr IV .Q0M PRN; Titrate PRN Reason: OPEN HEART Lactated Ringer's (Lactated Ringers) 1,000 mls @ 10 mls/hr IV .Q24H PRN PRN Reason: OPEN HEART Nitroglycerin/Dextrose 50 mg/ (IV Solution) 250 mls @ 1.5 mls/hr IV .Q24H PRN; Protocol; 5 MCG/MIN PRN Reason: OPEN HEART Norepinephrine Bitartrate 4 mg (/ Sodium Chloride) 254 mls @ 0 mls/hr IV .Q0M PRN; Protocol; Titrate PRN Reason: OPEN HEART Papaverine HCl 360 mg/ Sodium (Chloride) 102 mls @ 0 mls/hr IV ONCE PRN; As Directed PRN Reason: OPEN HEART Phenylephrine HCl 40 mg/ (Sodium Chloride) 254 mls @ 0 mls/hr IV .Q0M PRN; Protocol; Per Protocol PRN Reason: OPEN HEART Propofol 500 mg/ IV Solution 50 mls @ 0 mls/hr IV .Q0M PRN; Protocol; Titrate PRN Reason: OPEN HEART Protamine Sulfate 250 mg/ IV (Solution) 25 mls @ 0 mls/hr IV ONCE PRN; As Directed PRN Reason: OPEN HEART Cefazolin Sodium 2 gm/ Sodium (Chloride) 30 mls @ 60 mls/hr IVPB ONCE PRN PRN Reason: OPEN HEART Cefazolin Sodium 2,000 mg/ (Sodium Chloride) 30 mls @ 999 mls/hr IVPB ONCE PRN PRN Reason: OPEN HEART Cefazolin Sodium 1,000 mg/ (Sodium Chloride) 1,000 mls @ 999 mls/hr IRRIGATION ONCE PRN PRN Reason: OPEN HEART Isosorbide Mononitrate (Imdur) 30 mg PO DAILY [facility] Last Admin: 07/28/16 09:20 Dose: 30 mg Magnesium Sulfate (Magnesium Sulfate Syg) 16.24 meq IV ONCE PRN PRN Reason: OPEN HEART Mannitol (Osmitrol 25%) 12.5 gm IV ONCE PRN PRN Reason: OPEN HEART Metoprolol Succinate (Toprol Xl) 25 mg PO BID [facility] Stop: 07/28/16 23:59 Last Admin: 07/28/16 09:21 Dose: 25 mg Metoprolol Tartrate (Lopressor) 12.5 mg PO ONCE ONE Stop: 07/29/16 05:01 Mupirocin (Bactroban Oint) 1 applic NASAL BID [facility] Stop: 07/30/16 21:01 Last Admin: 07/28/16 09:19 Dose: 1 applic Naloxone HCl (Narcan) 0.2 mg IV Q2M PRN PRN Reason: Opioid Reversal Nitroglycerin (Nitrostat) 0.4 mg SUBLINGUAL Q5M PRN PRN Reason: Chest Pain Nitroglycerin/Dextrose (Nitro Drip 25 Mg/250 Ml In D5w Pmx) 1 mg IV ONCE PRN PRN Reason: OPEN HEART Phenylephrine HCl (Everton-Synephrine Syringe) 1 mg IV ONCE PRN PRN Reason: OPEN HEART Phenylephrine HCl (Everton-Synephrine Syringe) 1 mg IV ONCE PRN PRN Reason: OPEN HEART Phenylephrine HCl (Everton-Synephrine Syringe) 1 mg IV ONCE PRN PRN Reason: OPEN HEART Phenylephrine HCl (Everton-Synephrine Syringe) 1 mg IV ONCE PRN PRN Reason: OPEN HEART Prednisone () 5 mg PO DAILY [facility] Last Admin: 07/28/16 09:21 Dose: 5 mg Protamine Sulfate (Protamine Sulfate) 250 mg IV ONCE PRN PRN Reason: OPEN HEART Sodium Bicarbonate (Sodium Bicarb 8.4% Syr (1 Meq/Ml)) 50 ml IV ONCE PRN PRN Reason: OPEN HEART Temazepam (Restoril) 15 mg PO HS PRN PRN Reason: Insomnia Plan: 1. Continue aspirin, statin, beta odette. 2. Preoperative testing has been ordered, and reviewed. 3. Plan for urgent off pump coronary artery bypass graft scheduled for 2016 to be performed by Dr. Alcaraz. 4. Preoperative teaching reinforced with patient and his , all questions answered at this time. Patient watched the preop CABG video. 5. Walking cast removed 07/26/16 and change dressing to left lower extremity per recommendations from Dr. Carey. 6. Dr. Peters packed the patients right nare today. 7. Plan discussed with Dr. Juárez, more recommendations to follow. 8. Ultrasound right groin shows no evidence of pseudoaneurysm this am per Dr Samaniego. 9. Dr Gordon for antibiotic recommendations. <Guero Juárez - Last Filed: 07/28/16 12:18> Progress Note - Text The patient was seen and examined. I agree with the above assessment and plan. There were no new issues overnight. His right femoral artery pseudoaneurysm has resolved. He is scheduled for coronary artery bypass surgery with Dr. Alcaraz in the morning.
--- NOTE | 2016-07-28 10:29 | P.PCN ---
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 dissolvable nasal pack Anesthesia: none Surgeon: Felix Peters Estimated Blood Loss (ml): 0 Pathology: other Condition: stable Disposition: no change Indications for Procedure: Recurring epistaxis, planned coronary artery bypass graft with associated and coagulation scheduled. Operative Findings: Patient is a right septal ulcer with a left septal deviation and is evidence of crusting secondary to MRSA Description of Procedure: This patient's nose was examined with anterior rhinoscopy. Utilizing a standard nasal pore folded we inserted this into the right nares to cover the right nasal septal ulcer. This should help prevent any bleeding intraoperatively or postoperatively after the anticoagulation with heparin which is being planned. The nursing staff is to contact me if any bleeding should arise. Patient tolerated the packing.
--- NOTE | 2016-07-28 10:31 | P.PN ---
Subjective Principal diagnosis: Recurring epistaxis with associated right septal ulcer i.e. MRSA Patient scheduled for surgery for tomorrow and I've discussed his potential for epistaxis with him. We've agreed to proceed forward with use of a dissolvable nasal pack utilizing nasal pore. We will utilize a folded standard nasal pore. This should dissolve in approximately 7 days spontaneously as a dissolve the carbon dioxide and water. Objective - Vital Signs Vital signs: Vital Signs Temp 97.6 F 07/28/16 07:37 Pulse 81 07/28/16 07:37 Resp 16 07/28/16 07:37 BP 132/66 07/28/16 07:37 Pulse Ox 95 07/28/16 07:37 Intake & Output 07/27/16 07/28/16 07/28/16 18:59 06:59 18:59 Intake Total 180 220 0 Output Total 200 Balance 180 20 0 Weight 83 kg Intake: IV 20 Sodium Chloride 0.9% 1, 20 000 ml @ 20 mls/hr IV . Q24H [facility] Rx#:[id number] Intake, IV Titration 200 Amount Sodium Chloride 0.9% 1, 200 000 ml @ 20 mls/hr IV . Q24H [facility] Rx#:[id number] Oral 180 0 Output: Urine 200 Other: Voiding Method Urinal Urinal # Voids 0 2 - Constitutional General appearance: Present: average body habitus - EENT EENT Comment(s): Right septal ulcers noted packing was placed the patient tolerated this well a left septal deviation is noted. Eyes: Present: PERRLA ENT: Present: normal oropharynx Ears: bilateral: normal - Neck Neck: Absent: lymphadenopathy Thyroid: negative: normal size - Labs CBC & Chem 7: 07/28/16 06:26 07/28/16 06:26 Labs: Abnormal Lab Results - Last 24 Hours (Table) 07/27/16 07/28/16 07/28/16 Range/Units 05:54 06:26 06:26 RBC 2.47 L (4.30-5.90) m/uL Hgb 8.5 L (13.0-17.5) gm/dL Hct 26.5 L (39.0-53.0) % MCV 107.7 H (80.0-100.0) fL RDW 15.7 H (11.5-15.5) % Monocytes # (Manual) 1.1 H (0-1.0) k/uL BUN 43 H (9-20) mg/dL Creatinine 5.23 H* (0.66-1.25) mg/dL Glucose 109 H (74-99) mg/dL Phosphorus 5.5 H (2.5-4.5) mg/dL Iron 30 L (49-181) ug/dL % Saturation 11.0 L (20-50) % Albumin 3.3 L (3.5-5.0) g/dL Microbiology - Last 24 Hours (Table) 07/25/16 20:46 Urine Culture - Final Urine,Voided Assessment and Plan (1) Epistaxis, recurrent Narrative/Plan: Right nasal pore was placed and the patient tolerated this well. This pack will dissolve spontaneously within the next 5-7 days. I would like to see this patient after discharge if his epistaxis continues to be an issue. Status: Acute (2) Deviated nasal septum Status: Acute (3) Ulcer of nasal septum Status: Acute
--- NOTE | 2016-07-28 11:48 | PN ---
DATE OF SERVICE: 07/27/2016 This 80 -year-old gentleman who was admitted with significant coronary artery disease, slated to undergo coronary artery bypass grafting. Patient also had chronic renal failure, on hemodialysis. 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 The duplex scan showed earlier persistent 9 mm right sided pseudoaneurysm surrounding and has 2.[address] Samaniego has seen the patient as well. Past medical history reviewed. REVIEW OF SYSTEMS: CARDIOVASCULAR: As mentioned earlier. RESPIRATORY: As mentioned earlier. GI: Mentioned earlier. : No dysuria. Nervous system: No numbness, weakness. The patient also complaining of diffuse aches and pains also. Current medications are reviewed and include: 1. Xanax. 2. Otherwise, aspirin a day 81 daily. 3. Lipitor 10 mg. 4. Calcium. 5. Aranesp. 6. Colace. 7. Pepcid. 8. Folic acid. 9. Lasix. 10. P.r.n. medication. PHYSICAL EXAMINATION: The patient is alert and oriented x3. Pulse is 87, blood pressure 130/69, respiration 16, temperature 97.8, pulse ox 94% on room air. HEENT: Conjunctivae normal. NECK: No jugular venous distention. CARDIOVASCULAR: S1, S2 muffled. RESPIRATORY: Breath sounds diminished at the bases. A few rhonchi. No crackles. ABDOMEN: Soft. Nontender. No mass palpable. LEGS: No edema. No swelling. CENTRAL NERVOUS SYSTEM: No focal deficits. LABS: WBC 8.6, hemoglobin 7.9, creatinine 6.9, phosphorus 5.5, albumin is 3.2. Hepatitis panel is negative. ASSESSMENT: 1. Acute non-ST segment elevation myocardial infarction with chest pain, status post cardiac catheterization showing severe coronary artery disease awaiting coronary artery bypass grafting. 2. Chronic renal failure stage V, on hemodialysis. 3. Anemia, macrocytic secondary to hemodialysis and renal failure. 4. Epistaxis, improved. 5. Right groin pseudoaneurysm less than 1 cm with hematoma, status post compression and improvement. 6. Increased random blood sugar. 7. Diffuse aches and pains because of rheumatoid arthritis. 8. History of congestive heart failure. 9. Hypertension, essential. 10. Hyperlipidemia. 11. History of degenerative joint disease. 12. History of myocardial infarction. 13. History of rheumatoid arthritis. 14. History of multiple organisms grown from the wound, wound culture last year showed multiple and negative blood cultures. 15. 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 16. Tonsillectomy. 17. History of degenerative joint disease. 18. FULL CODE. RECOMMENDATIONS AND DISCUSSION: Recommend to continue current medications. Continue monitoring. Symptomatic treatment. I would recommend Rentz and Dilaudid p.r.n. Otherwise, closely follow with multiple consultants. Notes noted. Repeat labs will be recommended and discussed with the family at length. Restoril for sleep. Further recommendations to follow. MTDD
--- NOTE | 2016-07-28 11:53 | P.PN ---
Subjective Principal diagnosis: Mr. Xie is a 80-year-old with end-stage renal failure on dialysis Friday. He was admitted with an acute [place] and is being prepared for coronary artery bypass graft. Additionally had epistaxis and underwent a endoscopic exam which showed an ulcer in his septum. This morning he had procedure done to manage this. He is feeling much better this morning he has had for dialysis this week last 1 being yesterday Friday. Denies any fever chills cough shortness of breath nausea vomiting diarrhea. Sitting in a chair comfortable. He had a good night sleep. Additionally is known to have a newly found also numbness left heel. Objective - Vital Signs Vital signs: Vital Signs Temp 96.2 F L 07/28/16 11:43 Pulse 82 07/28/16 11:43 Resp 16 07/28/16 11:43 BP 127/65 07/28/16 11:43 Pulse Ox 98 07/28/16 11:43 Intake & Output 07/27/16 07/28/16 07/28/16 18:59 06:59 18:59 Intake Total 180 220 0 Output Total 200 Balance 180 20 0 Weight 83 kg Intake: IV 20 Sodium Chloride 0.9% 1, 20 000 ml @ 20 mls/hr IV . Q24H [facility] Rx#:[id number] Intake, IV Titration 200 Amount Sodium Chloride 0.9% 1, 200 000 ml @ 20 mls/hr IV . Q24H [facility] Rx#:[id number] Oral 180 0 Output: Urine 200 Other: Voiding Method Urinal Urinal # Voids 0 2 On examination is awake alert oriented comfortable in a chair sitting out. HEENT exam no JVP neck is supple no facial asymmetry Lungs are clear to auscultation percussion good air entry bilaterally Heart sounds are unremarkable for any murmur rub gallop. Abdomen soft nontender. Extremity exam reveals trace edema with some mild cyanosis of his toes. The left heel is in dressing. Neurologically awake alert oriented no focal motor deficit - Labs CBC & Chem 7: 07/28/16 06:26 07/28/16 06:26 Labs: Abnormal Lab Results - Last 24 Hours (Table) 07/27/16 07/28/16 07/28/16 Range/Units 05:54 06:26 06:26 RBC 2.47 L (4.30-5.90) m/uL Hgb 8.5 L (13.0-17.5) gm/dL Hct 26.5 L (39.0-53.0) % MCV 107.7 H (80.0-100.0) fL RDW 15.7 H (11.5-15.5) % Monocytes # (Manual) 1.1 H (0-1.0) k/uL BUN (9-20) mg/dL Creatinine (0.66-1.25) mg/dL Glucose (74-99) mg/dL Phosphorus 5.5 H (2.5-4.5) mg/dL Iron 30 L (49-181) ug/dL % Saturation 11.0 L (20-50) % Albumin (3.5-5.0) g/dL Crossmatch See Detail 07/28/16 Range/Units 06:26 RBC (4.30-5.90) m/uL Hgb (13.0-17.5) gm/dL Hct (39.0-53.0) % MCV (80.0-100.0) fL RDW (11.5-15.5) % Monocytes # (Manual) (0-1.0) k/uL BUN 43 H (9-20) mg/dL Creatinine 5.23 H* (0.66-1.25) mg/dL Glucose 109 H (74-99) mg/dL Phosphorus (2.5-4.5) mg/dL Iron (49-181) ug/dL % Saturation (20-50) % Albumin 3.3 L (3.5-5.0) g/dL Crossmatch Microbiology - Last 24 Hours (Table) 07/25/16 20:46 Urine Culture - Final Urine,Voided Assessment and Plan Plan: Impression. 1. ESRD on dialysis Friday. Dialyze 4 times this week including yesterday Friday 2. Congestive heart failure improved with aggressive ultrafiltration on for dialysis this week. 3. Anemia with worsening hemoglobin. Hemoglobin 7.9 down down from 10.1. On darbepoetin started this week 4. Iron deficiency 11% saturation 4. ASHD with acute [place] and plans are being drawn up for coronary artery bypass graft. 5. Septal ulcer in the left side. Had procedure done by ENT this morning for 2069 6. History of COPD. 7. Hyperphosphatemia controlled on calcium acetate. Phosphorus is 5.5 dated Recommendation. Maintain current dialysis schedule. Next dialysis will be Friday. His him for surgery tomorrow Friday Continue 60 units off darbepoetin, IV for Ferrlecit 125 mg 1 dose
[2016-07-28] MEDS: CHOLECALCIFEROL 1,000 UNIT TAB PO SCH (12:08)
[2016-07-28] MEDS ORDERED: SODIUM FERRIC GLUCONAT-SUCROSE 125 MG in SODIUM CHLORIDE 0.9% 100 ML IVPB ONE (12:30)
--- NOTE | 2016-07-28 15:04 | P.PN ---
Subjective This is a 80-year-old gentleman with history of hypertension, previous ischemic heart disease and mild aortic stenosis , end-stage renal disease on hemodialysis , known history of rheumatoid arthritis, who was admitted to [facility] with complaints of shortness of breath and cough and mild shoulder discomfort. His cardiac enzymes studies were suggestive of non-ST elevation myocardial infarction with EKG showing T-wave changes in anterolateral leads. Echocardiogram was reported as showing ejection fraction of 45% and evidence of mild to moderate aortic stenosis. Cardiac catheterization was completed and it showedSignificant coronary artery disease with a critical lesion in the proximal LAD and also in the proximal RCA. Based on these findings, the patient was asked to be seen by cardiothoracic surgery in consultation for surgery. The patient also has mild aortic stenosis and a mildly impaired LV function. From the pulmonary standpoint, the patient has no major respiratory difficulties. He claims that he was able to climb flight of stairs without any major difficulties. Nevertheless, currently has a ulcer on his left heel and this is limited his ability to walk and ambulate. No reported cough or sputum production. No chest tightness. No wheezing. No history of smoking. No recent pneumonias. No asthma. No bronchitis. Oxygen therapy. No nebulizer medication use or any other inhaler to use. Based on FEV1 is to be measured to a bedside spirometry. X-ray is to be also done. Room air pulse ox however is in the order of 94% and above. On 06/25/2016 the patient is being seen in follow-up. The patient had a hematoma the site of a cardiac catheterization as the Angio-Seal became dislodged. Local pressure was applied. He is doing well otherwise pedalor difficulties. FEV1 is above 70% of predicted. CAT scan of the chest was done that showed small [place] pleural effusions and there are some interstitial changes lung bases consistent with some mild CHF. There is also mild cardiomegaly. Otherwise no other major abnormalities have been noted. The patient remains on room air. Respiratory difficulties. Awaiting cardiac bypass surgery. On 06/27/2016 the patient is doing well. The patient was evaluated by vascular surgery and there is no active pseudoaneurysm at this point. The patient was also seen by Dr. Chen regarding episodic epistaxis and appropriate interventions were done. The patient is stable for now. The patient is ready for chronic bypass surgery in the morning. No other pulmonary active issues. Objective - Vital Signs Vital signs: Vital Signs Temp 96.2 F L 07/28/16 11:43 Pulse 82 07/28/16 11:43 Resp 16 07/28/16 11:43 BP 127/65 07/28/16 11:43 Pulse Ox 98 07/28/16 11:43 Intake & Output 07/27/16 07/28/16 07/28/16 18:59 06:59 18:59 Intake Total 180 220 160 Output Total 200 50 Balance 180 20 110 Weight 83 kg Intake: IV 20 160 Sodium Chloride 0.9% 1, 20 160 000 ml @ 20 mls/hr IV . Q24H RINA Rx#:[id number] Intake, IV Titration 200 Amount Sodium Chloride 0.9% 1, 200 000 ml @ 20 mls/hr IV . Q24H RINA Rx#:[id number] Oral 180 0 Output: Urine 200 50 Other: Voiding Method Urinal Urinal # Voids 0 2 1 - Exam Head exam was generally normal. There was no scleral icterus or corneal arcus. Mucous membranes were moist.Neck was supple and without jugular venous distension, thyromegaly, or carotid bruits. Carotids were easily palpable bilaterally. There was no adenopathy.Lungs were clear to auscultation and percussion, and with normal diaphragmatic excursion. No wheezes or rales were noted. Cardiac exam revealed the PMI to be normally situated and sized. The rhythm was regular and no extrasystoles were noted during several minutes of auscultation. The first and second heart sounds were normal and physiologic splitting of the second heart sound was noted. There were no murmurs, rubs, clicks, or gallops.Abdominal exam revealed normal bowel sounds. The abdomen was soft, non-tender, and without masses, organomegaly, or appreciable enlargement of the abdominal aorta. Extremities were inspected and the patient has a dressing covering the left heel wound along with the appropriate splint. The patient also has a AV fistula in the left upper extremity. No cyanosis or clubbing. - Labs CBC & Chem 7: 07/28/16 06:26 07/28/16 06:26 Labs: Abnormal Lab Results - Last 24 Hours (Table) 07/28/16 07/28/16 07/28/16 Range/Units 06:26 06:26 06:26 RBC 2.47 L (4.30-5.90) m/uL Hgb 8.5 L (13.0-17.5) gm/dL Hct 26.5 L (39.0-53.0) % MCV 107.7 H (80.0-100.0) fL RDW 15.7 H (11.5-15.5) % Monocytes # (Manual) 1.1 H (0-1.0) k/uL BUN 43 H (9-20) mg/dL Creatinine 5.23 H* (0.66-1.25) mg/dL Glucose 109 H (74-99) mg/dL Albumin 3.3 L (3.5-5.0) g/dL Crossmatch See Detail Microbiology - Last 24 Hours (Table) 07/25/16 20:46 Urine Culture - Final Urine,Voided Assessment and Plan Plan: Assessment 1 Coronary artery disease post non-ST segment elevation myocardial infarction. The patient is post cardiac catheter sedation cardiac catheterization which showed critical lesion in the LAD and a second lesion in the RCA and based on discussion with cardiology the patient was thought to aggressive with bypass surgery. Currently is free of chest pain. 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 The patient was a bit was by ENT. The right nasal packing was done. Plan We'll continue to follow. Possible monitor bypass surgery in a.m.
--- NOTE | 2016-07-28 15:49 | P.PN ---
Subjective Principal diagnosis: cough This is a 80-year-old male known to infectious disease service as he has been treated for infection to his shunt on his left arm before as well as ulceration to his left heel. Patient states that he presented to [facility] because he was initially having epistaxis. This was on Friday. The bleeding was controlled and he was discharged home. He then returned on Friday as he woke up in the morning at 2 AM with a cough and shortness of breath that had been going on but continued to worsen. Patient was diagnosed with a non-ST elevated myocardial infarction and was transferred to [facility] on July 25 for heart catheterization that found two-vessel disease of the proximal LAD and proximal RCA with mild aortic stenosis. He has been evaluated by cardiothoracic surgery and is scheduled for CABG on June 28. Patient does have history of end-stage renal disease on hemodialysis Friday and Friday and is followed by Dr. Fernandez. He denies any problems with his dialysis AV fistula in his left arm. [facility] under the care of Dr. Carey. He has a total contact cast to the left lower extremity which is scheduled to be removed today. Regarding his epistaxis, patient was seen by Dr. Chen on underwent flexible nasal endoscopy finding a right anterior septal ulcer. Dr. Lucas is following from pulmonary medicine. Upon review of his previous wound cultures, he does have history of MRSA. Patient does have history of rheumatoid arthritis on prednisone only. 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 He has been evaluated by interventional radiology and repairs been performed. He is doing well and folow up shows resolution of the pseudoaneurysm He has no other new complaints. No difficulty with the ulcer to the heel. Does have the offloading boot in place. Anxious about surgery tomorrow Objective - Vital Signs Vital signs: Vital Signs Temp 96.2 F L 07/28/16 11:43 Pulse 82 07/28/16 11:43 Resp 16 07/28/16 11:43 BP 127/65 07/28/16 11:43 Pulse Ox 98 07/28/16 11:43 Intake & Output 07/27/16 07/28/16 07/28/16 18:59 06:59 18:59 Intake Total 180 220 160 Output Total 200 50 Balance 180 20 110 Weight 83 kg Intake: IV 20 160 Sodium Chloride 0.9% 1, 20 160 000 ml @ 20 mls/hr IV . Q24H RINA Rx#:[id number] Intake, IV Titration 200 Amount Sodium Chloride 0.9% 1, 200 000 ml @ 20 mls/hr IV . Q24H RINA Rx#:[id number] Oral 180 0 Output: Urine 200 50 Other: Voiding Method Urinal Urinal # Voids 0 2 1 - Exam Gen: This is a 80-year-old male. He is sitting on the edge of the bed appears to be in no acute distress. HEENT: Head is atraumatic, normocephalic. Pupils equal, round. Sclerae is anicteric. Conjunctiva pink. Mucous members of the mouth are moist. No thrush noted. NECK: Supple. No JVD. No lymphadenopathy. No thyromegaly. LUNGS: Clear to auscultation. No wheezes or rhonchi. No intercostal retractions. HEART: Regular rate and rhythm. No murmur. ABDOMEN: Soft. Bowel sounds are present. No masses. No tenderness. EXTREMITIES: No pedal edema. No calf tenderness. Total contact cast was removed. The ulceration to the left heel is clean without significant purulence noted drainage. Silver dressing is in place.fistula left arm intact Dialysis graft of the left arm is intact. NEUROLOGICAL: Patient is awake, alert and oriented x 3 - Labs CBC & Chem 7: 07/28/16 06:26 07/28/16 06:26 Labs: Abnormal Lab Results - Last 24 Hours (Table) 07/28/16 07/28/16 07/28/16 Range/Units 06:26 06:26 06:26 RBC 2.47 L (4.30-5.90) m/uL Hgb 8.5 L (13.0-17.5) gm/dL Hct 26.5 L (39.0-53.0) % MCV 107.7 H (80.0-100.0) fL RDW 15.7 H (11.5-15.5) % Monocytes # (Manual) 1.1 H (0-1.0) k/uL BUN 43 H (9-20) mg/dL Creatinine 5.23 H* (0.66-1.25) mg/dL Glucose 109 H (74-99) mg/dL Albumin 3.3 L (3.5-5.0) g/dL Crossmatch See Detail Microbiology - Last 24 Hours (Table) 07/25/16 20:46 Urine Culture - Final Urine,Voided Laboratory Results WBC 8.8 k/uL (3.8-10.6) 07/28/16 06:26 RBC 2.47 m/uL (4.30-5.90) L 07/28/16 06:26 Hgb 8.5 gm/dL (13.0-17.5) L 07/28/16 06:26 Hct 26.5 % (39.0-53.0) L 07/28/16 06:26 MCV 107.7 fL (80.0-100.0) H 07/28/16 06:26 MCH 34.5 pg (25.0-35.0) 07/28/16 06:26 MCHC 32.1 g/dL (31.0-37.0) 07/28/16 06:26 RDW 15.7 % (11.5-15.5) H 07/28/16 06:26 Plt Count 192 k/uL (150-450) 07/28/16 06:26 Neutrophils % 72 % 07/25/16 06:21 Neutrophils % (Manual) 62.0 % 07/28/16 06:26 Band Neutrophils % 0.5 % 07/26/16 06:10 Lymphocytes % 12 % 07/25/16 06:21 Lymphocytes % (Manual) 17.0 % 07/28/16 06:26 Monocytes % 10 % 07/25/16 06:21 Monocytes % (Manual) 13.0 % 07/28/16 06:26 Eosinophils % 2 % 07/25/16 06:21 Eosinophils % (Manual) 8.0 % 07/28/16 06:26 Basophils % 1 % 07/25/16 06:21 Myelocytes % 0.5 % 07/26/16 06:10 Neutrophils # 5.7 k/uL (1.3-7.7) 07/25/16 06:21 Neutrophils # (Manual) 5.5 k/uL (1.3-7.7) 07/28/16 06:26 Lymphocytes # 0.9 k/uL (1.0-4.8) L 07/25/16 06:21 Lymphocytes # (Manual) 1.5 k/uL (1.0-4.8) 07/28/16 06:26 Monocytes # 0.8 k/uL (0-1.0) 07/25/16 06:21 Monocytes # (Manual) 1.1 k/uL (0-1.0) H 07/28/16 06:26 Eosinophils # 0.2 k/uL (0-0.7) 07/25/16 06:21 Eosinophils # (Manual) 0.7 k/uL (0-0.7) 07/28/16 06:26 Basophils # 0.0 k/uL (0-0.2) 07/25/16 06:21 Nucleated RBCs 0 /100 WBC (0-0) 07/28/16 06:26 Manual Slide Review Performed 07/26/16 06:10 Polychromasia Present 07/28/16 06:26 Hypochromasia Slight 07/28/16 06:26 Poikilocytosis (manual Present 07/26/16 06:10 Anisocytosis Slight 07/26/16 06:10 Macrocytosis Marked 07/28/16 06:26 PT 11.2 sec (9.0-12.0) 07/26/16 06:10 INR 1.1 (<1.1) 07/26/16 06:10 APTT 24.2 sec (22.0-30.0) 07/26/16 21:30 Sodium 141 mmol/L (137-145) 07/28/16 06:26 Potassium 4.2 mmol/L (3.5-5.1) 07/28/16 06:26 Chloride 102 mmol/L (98-107) 07/28/16 06:26 Carbon Dioxide 26 mmol/L (22-30) 07/28/16 06:26 Anion Gap 13 mmol/L 07/28/16 06:26 BUN 43 mg/dL (9-20) H 07/28/16 06:26 Creatinine 5.23 mg/dL (0.66-1.25) H* 07/28/16 06:26 Est GFR (MDRD) Af Amer 13 (>60 ml/min/1.73 sqM) 07/28/16 06:26 Est GFR (MDRD) Non-Af 11 (>60 ml/min/1.73 sqM) 07/28/16 06:26 Glucose 109 mg/dL (74-99) H 07/28/16 06:26 POC Glucose (mg/dL) 113 mg/dL (75-99) H 07/25/16 06:54 POC Glu Billing Rep Erika Vincent 07/25/16 06:[address] Glu mg/dL 111 mg/dL 07/25/16 06:21 Hemoglobin A1c 5.5 % (4.2-6.1) 07/25/16 06:21 Calcium 8.9 mg/dL (8.4-10.2) 07/28/16 06:26 Phosphorus 5.5 mg/dL (2.5-4.5) H 07/27/16 05:54 Magnesium 2.5 mg/dL (1.6-2.3) H 07/26/16 06:10 Iron 30 ug/dL (49-181) L 07/27/16 05:54 TIBC 273 ug/dL (261-462) 07/27/16 05:54 % Saturation 11.0 % (20-50) L 07/27/16 05:54 Total Bilirubin 0.6 mg/dL (0.2-1.3) 07/28/16 06:26 AST 37 U/L (17-59) 07/28/16 06:26 ALT 41 U/L (21-72) 07/28/16 06:26 Alkaline Phosphatase 92 U/L (38-126) 07/28/16 06:26 NT-Pro-B Natriuret Pep 01686 pg/mL 07/25/16 06:21 Total Protein 6.5 g/dL (6.3-8.2) 07/28/16 06:26 Albumin 3.3 g/dL (3.5-5.0) L 07/28/16 06:26 Triglycerides 78 mg/dL (<150) 07/26/16 06:10 Cholesterol 143 mg/dL (<200) 07/26/16 06:10 LDL Cholesterol, Calc 72 mg/dL (0-99) 07/26/16 06:10 HDL Cholesterol 55 mg/dL (40-60) 07/26/16 06:10 TSH 3.000 mIU/L (0.465-4.680) 07/26/16 06:10 Urine Color Light Yellow 07/25/16 20:46 Urine Appearance Clear (Clear) 07/25/16 20:46 Urine pH 8.0 (5.0-8.0) 07/25/16 20:46 Ur Specific Harvey 1.007 (1.001-1.035) 07/25/16 20:46 Urine Protein 2+ (Negative) H 07/25/16 20:46 Urine Glucose (UA) 1+ (Negative) H 07/25/16 20:46 Urine Ketones Negative (Negative) 07/25/16 20:46 Urine Blood Trace (Negative) H 07/25/16 20:46 Urine Nitrite Negative (Negative) 07/25/16 20:46 Urine Bilirubin Negative (Negative) 07/25/16 20:46 Urine Urobilinogen <2.0 mg/dL (<2.0) 07/25/16 20:46 Ur Leukocyte Esterase Negative (Negative) 07/25/16 20:46 Urine RBC <1 /hpf (0-5) 07/25/16 20:46 Urine WBC <1 /hpf (0-5) 07/25/16 20:46 Ur Squamous Epith Cells <1 /hpf (0-4) 07/25/16 20:46 Urine Bacteria Rare /hpf (None) H 07/25/16 20:46 Stool Occult Blood Positive (Negative) 07/25/16 20:46 Hepatitis A IgM Ab NEGATIVE 07/26/16 06:10 Hep Bs Antigen Negative 07/26/16 06:10 Hep B Core IgM Ab NEGATIVE 07/26/16 06:10 Hep C IgG Ab Negative (Negative) 07/26/16 06:10 Blood Type B Positive 07/28/16 06:26 Blood Type Confirm B Positive 07/27/16 05:59 Blood Type Recheck CABO Indicated 07/28/16 06:26 Antibody Screen NEGATIVE 07/28/16 06:26 Crossmatch See Detail 07/28/16 06:26 Transfuse Platelets 07/29/2016 07/28/16 11:11 Spec Expiration Date 07/31/2016232507/28/16 06:26 Microbiology 07/25/16 20:46 Urine,Voided Urine Culture - Final Assessment and Plan (1) Non-STEMI (non-ST elevated myocardial infarction) Status: Acute (2) Diabetic foot ulcer associated with type 2 diabetes mellitus Narrative/Plan: The total contact cast has now been removed by the team from the wound center. Local wound care has been applied to the ulceration. He is appropriately anxious for the upcoming cardiovascular surgery. The family is present. The family is reassured that the cardiac thoracic surgeon, Dr. Alcaraz is an excellent surgeon. We will proceed with surgery, Friday. Is having ultrasound of his right groin to make sure is not a pseudoaneurysm. Local wound care with the silver product to the foot ulcer is being utilized. It is about an infected ulceration and needs ongoing local wound care. The ulceration is not a contraindication for this procedure of coronary artery bypass grafting. We will monitor. Had pseudoaneurysm repair and other than discomfort is doing well As noted will have his cardiovascular surgery tomorrow. He is assured to the best of the ability. Case is discussed with the cardiothoracic team and he'll receive vancomycin for his surgical prophylaxis. Status: Acute
--- NOTE | 2016-07-28 16:44 | PN ---
Mr. Xie is comfortable, resting. Denies chest pain, stable shortness of breath. No palpitations. He is going for aortocoronary bypass surgery on Friday. His right groin has ecchymosis. Bruits not evident today. Ultrasound revealed that the pseudoaneurysm was closed completely. No other intervention is necessary. We will continue same medications, proceed with his aortocoronary bypass surgery to be performed by Dr. Alcaraz on Friday. Vital signs are stable. There is JVD of 1 cm. No carotid bruit. S1, S2 are heard normal. Ejection systolic murmur at the base is audible, second heart sound is preserved. ABDOMEN: Soft, diastolic murmur is audible. Lungs are clear. Abdomen and lower extremity exam otherwise is unchanged. Right groin has ecchymosis but there is no bruit.
[2016-07-29] MEDS ORDERED: LACTATED RINGERS 1,000 ML IV PRN (05:00)
[2016-07-29] MEDS ORDERED: MAGNESIUM SULFATE SYG 4.06 MEQ/ML SYRINGE IV PRN (05:00)
[2016-07-29] MEDS ORDERED: AMINOCAPROIC ACID 250 MG/ML 20 ML VIAL IV PRN (05:00)
[2016-07-29] MEDS ORDERED: ceFAZolin 2 GM in SODIUM CHLORIDE 0.9% 30 ML IVPB PRN (05:00)
[2016-07-29] MEDS ORDERED: INSULIN REGULAR 100 UNIT in SODIUM CHLORIDE 0.9% 100 ML IV PRN (05:00)
[2016-07-29] MEDS ORDERED: ATORVASTATIN 10 MG TAB PO ONE (05:00)
[2016-07-29] MEDS ORDERED: SODIUM BICARB 8.4% 50 ML SYR (1 MEQ/ML) IV PRN (05:00)
[2016-07-29] MEDS ORDERED: VANCOMYCIN 1,250 MG in SODIUM CHLORIDE 0.9% 250 ML IVPB ONE (05:00)
[2016-07-29] MEDS ORDERED: CHLORHEXIDINE GLUCONATE 15 ML CUP MUCOUS MEM PRN (05:00)
[2016-07-29] MEDS ORDERED: NITROGLYCERIN-D5W PMX 25 MG/250 ML BTL IV PRN (05:00)
[2016-07-29] MEDS ORDERED: ceFAZolin 2,000 MG in SODIUM CHLORIDE 0.9% 30 ML IVPB PRN (05:00)
[2016-07-29] MEDS ORDERED: CALCIUM CHLORIDE 100 MG/ML 10 ML SYRINGE IVP PRN (05:00)
[2016-07-29] MEDS ORDERED: PROTAMINE SULFATE 10 MG/ML 25 ML VIAL IV PRN (05:00)
[2016-07-29] MEDS ORDERED: ceFAZolin 1,000 MG in SODIUM CHLORIDE 0.9% IRRIGATIO 1,000 ML IRRIGATION PRN (05:00)
[2016-07-29] MEDS ORDERED: PHENYLEPHRINE-0.9% NACL SYG 1 MG/10 ML SYRINGE IV PRN ×4 (05:00)
[2016-07-29] MEDS ORDERED: HEPARIN SODIUM 1,000 UNIT/ML VIAL IV PRN (05:00)
[2016-07-29] MEDS ORDERED: ALBUMIN HUMAN 25% 50 ML in EMPTY BAG 1 BAG IVPB PRN (05:00)
[2016-07-29] MEDS ORDERED: PHENYLEPHRINE 40 MG in SODIUM CHLORIDE 0.9% 250 ML IV PRN (05:00)
[2016-07-29] MEDS ORDERED: PAPAVERINE 360 MG in SODIUM CHLORIDE 0.9% 90 ML IV PRN (05:00)
[2016-07-29] MEDS ORDERED: ALBUMIN HUMAN 5% 500 ML in EMPTY BAG 1 BAG IVPB PRN ×6 (05:00)
[2016-07-29] MEDS ORDERED: PROPOFOL 500 MG in EMPTY BAG 1 BAG IV PRN (05:00)
[2016-07-29] MEDS ORDERED: AMINOCAPROIC ACID 5,000 MG in DEXTROSE 5% IN WATER 50 ML IV PRN ×4 (05:00)
[2016-07-29] MEDS ORDERED: CLEVIDIPINE BUTYRATE 25 MG in EMPTY BAG 1 BAG IV PRN (05:00)
[2016-07-29] MEDS ORDERED: METOPROLOL TARTRATE 12.5 MG TAB PO ONE (05:00)
[2016-07-29] MEDS ORDERED: NOREPINEPHRINE 4 MG in SODIUM CHLORIDE 0.9% 250 ML IV PRN (05:00)
[2016-07-29] MEDS ORDERED: MANNITOL 25% 12.5 GM/50 ML VIAL IV PRN (05:00)
[2016-07-29] MEDS ORDERED: HEPARIN SODIUM,PORCINE 5,000 UNIT in SODIUM CHLORIDE 0.9% 500 ML IV PRN (05:00)
[2016-07-29] MEDS ORDERED: NITROGLYCERIN-D5W PMX 50 MG in DEXTROSE/WATER 1 250ML.BAG IV PRN (05:00)
[2016-07-29] MEDS ORDERED: VANCOMYCIN 1,000 MG in SODIUM CHLORIDE 0.9% IRRIGATIO 1,000 ML IRRIGATION ONE (05:00)
[2016-07-29] MEDS ORDERED: PROTAMINE SULFATE 250 MG in EMPTY BAG 1 BAG IV PRN (05:00)
[2016-07-29] MEDS ORDERED: ASPIRIN 81 MG CHEW PO ONE (05:00)
[2016-07-29] MEDS ORDERED: IV FLUID CONTINUATION 1,000 ML IV ONE (06:15)
[2016-07-29 06:27] LABS: Basophils % (A) 1 %; CH 32.7; CHCM 30.4; Eosinophils # (A) 0.5 k/uL (0-0.7); Eosinophils % (A) 7 %; HCT 26.6 % (39.0-53.0); HDW 3.14; HGB 8.3 gm/dL (13.0-17.5); Hypochromasia Marked; Luc # (Auto) 0.34; Luc % (Auto) 4; Lymphocytes % (A) 12 %; MCH 33.7 pg (25.0-35.0); MCHC 31.2 g/dL (31.0-37.0); MCV 108.2 fL (80.0-100.0); Macrocytosis Marked; Mean Platelet Volume 7.6; Monocytes # (A) 0.7 k/uL (0-1.0); Monocytes % (A) 9 %; Neutrophils # (A) 5.5 k/uL (1.3-7.7); Neutrophils % (A) 68 %; RBC 2.46 m/uL (4.30-5.90); RDW 15.4 % (11.5-15.5); WBC 8.1 k/uL (3.8-10.6); WBC (Perox) 8.02
[2016-07-29] MEDS ORDERED: MIDAZOLAM 2 MG/2 ML VIAL IV PRN (07:02)
[2016-07-29] MEDS ORDERED: LACTATED RINGERS 1,000 ML IV SCH (07:15)
--- NOTE | 2016-07-29 07:24 | US ---
EXAMINATION TYPE: US compress pseudoaneurysm RT DATE OF EXAM: 07/27/2016 3:30 PM COMPARISON: NONE CLINICAL HISTORY: Postcardiac catheter pseudoaneurysm EXAM PERFORMED: Grayscale and color Doppler duplex imaging performed of the groin, post cardiac kate ter to assess for pseudoaneurysm. FINDINGS: Color and Waveform Doppler performed to assess for the presence of pseudoaneurysm; Intermittent compression was performed over the course of 65 minutes. Pulses were monitored throughou t the exam and post procedure and appeared patent both proximally and distally. There was unsuccessful compression of the pseudoaneurysm with complete thrombosis. IMPRESSION: Successful ultrasound-guided intermittent pseudoaneurysm compression
[2016-07-29] MEDS ORDERED: PROTAMINE SULFATE 10 MG/ML 5 ML VIAL IV ONE (07:52)
[2016-07-29] MEDS ORDERED: SODIUM CHLORIDE 0.9% IRRIG 1,000 ML BTL IRRIGATION ONE (07:52)
[2016-07-29] MEDS ORDERED: HEPARIN SODIUM,PORCINE 5,000 UNIT/ML 1 ML VIAL ONE (07:52)
[2016-07-29] MEDS ORDERED: fentaNYL (PF) 50 MCG/ML 2 ML AMP ONE (07:52)
[2016-07-29] MEDS ORDERED: MAGNESIUM SULFATE 4 MEQ/ML 2 ML VIAL ONE (07:52)
[2016-07-29] MEDS ORDERED: HEPARIN SODIUM 1,000 UNIT/ML VIAL ONE (07:52)
[2016-07-29] MEDS ORDERED: ALBUMIN HUMAN 5% 500 ML VIAL IVPB ONE (07:52)
[2016-07-29] MEDS ORDERED: MIDAZOLAM 2 MG/2 ML VIAL ONE (07:52)
[2016-07-29] MEDS ORDERED: VECURONIUM 10 MG VIAL IV ONE (07:52)
[2016-07-29] MEDS ORDERED: PROPOFOL 10 MG/ML 20 ML VIAL IV ONE (07:52)
[2016-07-29] MEDS ORDERED: SODIUM BICARB 8.4% 50 ML SYR (1 MEQ/ML) ONE (07:52)
[2016-07-29] MEDS ORDERED: fentaNYL (PF) 50 MCG/ML 50 ML VIAL ONE (07:52)
[2016-07-29 08:36] LABS: Glucose,Whole Blood 87 mg/dL (75-99)
[2016-07-29 09:31] LABS: CH 33.5; CHCM 31.1; HDW 3.08; Hypochromasia Moderate; MCH 31.9 pg (25.0-35.0); MCHC 29.5 g/dL (31.0-37.0); MCV 108.4 fL (80.0-100.0); Macrocytosis Marked; Mean Platelet Volume 7.5; RDW 15.8 % (11.5-15.5); WBC 5.3 k/uL (3.8-10.6)
[2016-07-29 09:36] LABS: HCT 16.2 % (39.0-53.0)
[2016-07-29 09:37] LABS: HGB 4.8 gm/dL (13.0-17.5)
[2016-07-29] MEDS ORDERED: DESMOPRESSIN INJ 30 MCG in SODIUM CHLORIDE 0.9% 50 ML IVPB STA (09:51)
[2016-07-29 10:05] LABS: Glucose,Whole Blood 121 mg/dL (75-99)
[2016-07-29 10:46] LABS: Glucose,Whole Blood 122 mg/dL (75-99)
[2016-07-29 11:12] LABS: Glucose,Whole Blood 129 mg/dL (75-99)
--- NOTE | 2016-07-29 11:20 | PN ---
DATE OF SERVICE: 07/28/2016 This 80-year-old gentleman who was admitted with acute non-ST segment elevation myocardial infarction with chest pain, status post cardiac catheterization, severe coronary artery disease, awaiting coronary artery bypass grafting. Patient has History of was incomplete. The patient also had chronic kidney disease, on hemodialysis. Multiple consultants are following the patient closely. The patient also history recurrent the right septal ulcer. The patient also had a history of MRSA as well. On exam, alert and oriented time three. Pulse is 82, blood pressure 127/64, respirations 16, temperature 96.2, pulse ox 98% on room air. HEENT: Conjunctivae normal. CARDIOVASCULAR: S1, S2 muffled. RESPIRATORY: Breath sounds diminished at the bases. No rhonchi. No crackles. ABDOMEN: Soft. Nontender. No mass palpable. LEGS: No edema. No swelling. CENTRAL NERVOUS SYSTEM: No focal deficits. LABS: Hemoglobin 8.5. Otherwise, creatinine is 5.23 and albumin is 3.33. ASSESSMENT: 1. Acute non-ST segment elevation myocardial infarction with chest pain status post cardiac catheterization showing severe coronary disease awaiting coronary artery bypass grafting. 2. Chronic renal failure, stage V, on hemodialysis. 3. Anemia, macrocytic secondary to hemodialysis and renal failure. 4. Epistaxis secondary to septal ulcer, improved. 5. Right groin pseudoaneurysm less than 1 cm with hematoma, status post compression and improvement. 6. Increased random blood sugar. 7. Diffuse aches and pains because of rheumatoid arthritis. 8. History of congestive heart failure. 9. Hypertension, essential. 10. Hyperlipidemia. 11. History of degenerative joint disease. 12. History of myocardial infarction. 13. History of rheumatoid arthritis. 14. History of multiple organisms growing from the wound, wound culture last year showed multiple organisms including Methicillin-resistant Staph aureus and VRE. 15. Tonsillectomy history. 16. History of degenerative joint disease. 17. FULL CODE. RECOMMENDATIONS AND DISCUSSION: Recommended to continue current medications. Continue with monitoring. Continue symptomatic treatment. We will optimize cardiopulmonary functions prior to surgery. Otherwise, continue the rest of medications. Multiple j2ee consultant notes appreciated. See above for further details. Closely follow with cardiothoracic surgery. Further recommendations to follow. [facility]
[2016-07-29 11:54] LABS: Glucose,Whole Blood 124 mg/dL (75-99)
[2016-07-29 12:51] LABS: Glucose,Whole Blood 183 mg/dL (75-99)
[2016-07-29] MEDS: FUROSEMIDE 20 MG TAB PO SCH (12:54)
[2016-07-29] MEDS: DOCUSATE 100 MG CAP PO SCH (12:54)
[2016-07-29] MEDS: ISOSORBIDE MONONITRATE ER 30 MG TAB.ER.24H PO SCH (12:54)
[2016-07-29] MEDS: CALCIUM ACETATE 667 MG CAP PO SCH (12:54)
[2016-07-29] MEDS: ALLOPURINOL 100 MG TAB PO SCH (12:54)
[2016-07-29] MEDS: FAMOTIDINE 20 MG TAB PO SCH (12:54)
[2016-07-29] MEDS: SODIUM CHLORIDE 0.9% 1,000 ML IV SCH (12:54)
[2016-07-29] MEDS: FOLIC ACID 1 MG TAB PO SCH (12:54)
[2016-07-29] MEDS: MUPIROCIN 2% OINT 22 GM TUBE NASAL SCH ×2 (12:55→22:09)
[2016-07-29 13:00] LABS: Glucose,Whole Blood 158 mg/dL (75-99)
[2016-07-29] MEDS: CHOLECALCIFEROL 1,000 UNIT TAB PO SCH (13:02)
[2016-07-29] MEDS: predniSONE 5 MG TAB PO SCH (13:02)
[2016-07-29] MEDS ORDERED: ALBUMIN HUMAN 5% 250 ML IVPB ONE (13:26)
[2016-07-29] MEDS ORDERED: METOCLOPRAMIDE 5 MG/ML 2 ML VIAL IVP PRN (13:32)
[2016-07-29] MEDS ORDERED: ALBUMIN HUMAN 5% 250 ML in EMPTY BAG 1 BAG IVPB PRN (13:32)
[2016-07-29] MEDS ORDERED: IV VANCOMYCIN PER PHARMACY 1 EACH MISC MISCELLANE PRN (13:32)
[2016-07-29] MEDS ORDERED: Potassium Replacement Protocol 1 EACH MISC MISCELLANE PRN (13:32)
[2016-07-29] MEDS ORDERED: ONDANSETRON 4 MG/2 ML VIAL IVP PRN (13:32)
[2016-07-29] MEDS ORDERED: INSULIN REGULAR 100 UNIT in SODIUM CHLORIDE 0.9% 100 ML IV SCH (13:32)
[2016-07-29] MEDS ORDERED: BENZOCAINE/MENTHOL LOZENG 1 EACH LOZENGE MUCOUS MEM PRN (13:32)
[2016-07-29] MEDS ORDERED: Magnesium Replacement Protocol 1 EACH MISC MISCELLANE PRN (13:32)
[2016-07-29] MEDS ORDERED: CALCIUM GLUCONATE 2,000 MG in SODIUM CHLORIDE 0.9% 100 ML IVPB PRN (13:32)
[2016-07-29] MEDS ORDERED: Phosphorus Replacement Protoco 1 EACH MISC MISCELLANE PRN (13:32)
[2016-07-29 13:34] LABS: Glucose,Whole Blood 155 mg/dL (75-99)
[2016-07-29] MEDS ORDERED: ASPIRIN 300 MG SUPP RECTAL ONE (13:45)
[2016-07-29 14:16] LABS: Glucose,Whole Blood 141 mg/dL (75-99)
[2016-07-29] MEDS: NITROGLYCERIN-D5W PMX 50 MG in DEXTROSE/WATER 1 250ML.BAG IV SCH (14:29)
[2016-07-29 14:34] LABS: Ionized Calcium 3.9 mg/dL (4.5-5.3)
[2016-07-29 14:39] LABS: INR 1.6 (<1.1); Partial Thromboplastin Time 39.9 sec (22.0-30.0); Prothrombin Time 15.4 sec (9.0-12.0)
[2016-07-29 14:40] LABS: Anisocytosis Slight; CH 30.7; CHCM 32.1; HCT 23.1 % (39.0-53.0); HDW 3.33; Hypochromasia Slight; MCH 30.8 pg (25.0-35.0); MCHC 31.9 g/dL (31.0-37.0); Macrocytosis Slight; Mean Platelet Volume 7.9; RBC 2.39 m/uL (4.30-5.90); RDW 19.5 % (11.5-15.5); WBC 14.3 k/uL (3.8-10.6); WBC (Perox) 15.13
[2016-07-29 14:43] LABS: ABG Base Excess -4.2 mmol/L; ABG HCO3 21 mmol/L (21-25); ABG PCO2 42 mmHg (35-45); ABG PH 7.32 (7.35-7.45); ABG PO2 364 mmHg (83-108); ABG TCO2 22 mmol/L (19-24)
[2016-07-29] MEDS: CLEVIDIPINE BUTYRATE 25 MG in EMPTY BAG 1 BAG IV SCH (14:44)
[2016-07-29 14:47] LABS: HGB 7.4 gm/dL (13.0-17.5)
[2016-07-29 14:48] LABS: MCV 96.5 fL (80.0-100.0)
--- NOTE | 2016-07-29 14:50 | XR ---
EXAMINATION TYPE: XR chest 1V portable DATE OF EXAM: 07/29/2016 2:28 PM Comparison: 07/29/2016 Clinical History: 80 year-old male post Operative Cardiac Surgery Findings: Median sternotomy wires are present with post-CABG clips in the mediastinum. Right IJ [place] kate ter has tip at the level of the right main pulmonary artery. Mediastinal drains and left-sided pleura l drain are present ET tube is satisfactory. NG tube courses below the diaphragm but the tip is beyon d the field of view. Old healed right-sided rib fracture deformities. There is new perihilar opacities with a interstitial densities in suggestion of trace effusions. More focal left midlung opacity. Impression: 1. Post surgical changes with findings suggesting pulmonary vascular congestion and interstitial horacio a. 2. More focal left midlung opacity probably an area of more confluent pulmonary edema. 3. Trace effusions.
[2016-07-29 14:58] LABS: Glucose,Whole Blood 132 mg/dL (75-99)
[2016-07-29] MEDS: LACTATED RINGERS 1,000 ML IV SCH (15:27)
[2016-07-29] MEDS: PROPOFOL 500 MG in EMPTY BAG 1 BAG IV SCH ×4 (15:30→22:51)
[2016-07-29 15:31] LABS: Add Differential Manual Differential
[2016-07-29 15:32] LABS: Nucleated Red Blood Cells 0 /100 WBC (0-0); Polychromasia Present; Total Cells Counted 100
[2016-07-29 15:34] LABS: Calcium 6.8 mg/dL (8.4-10.2); Magnesium 2.3 mg/dL (1.6-2.3); Potassium 4.4 mmol/L (3.5-5.1); Total Bilirubin 1.3 mg/dL (0.2-1.3); Total Protein 5.6 g/dL (6.3-8.2)
[2016-07-29 15:59] LABS: Glucose,Whole Blood 135 mg/dL (75-99)
[2016-07-29] MEDS ORDERED: SODIUM BICARB 8.4% 50 ML SYR (1 MEQ/ML) IV STA (16:06)
[2016-07-29 16:18] LABS: ABG Base Excess -3.3 mmol/L; ABG HCO3 22 mmol/L (21-25); ABG PCO2 50 mmHg (35-45); ABG PH 7.28 (7.35-7.45); ABG PO2 46 mmHg (83-108); ABG TCO2 24 mmol/L (19-24)
[2016-07-29] MEDS: IPRATROPIUM-ALBUTEROL 3 ML NEB INHALATION SCH ×3 (16:19→23:36)
[2016-07-29] MEDS: MORPHINE SULFATE 2 MG/ML SYRINGE IVP PRN ×3 (16:23→23:00)
--- NOTE | 2016-07-29 16:23 | XR ---
EXAMINATION TYPE: XR chest 1V portable DATE OF EXAM: 07/29/2016 4:19 PM COMPARISON: 07/29/2016 INDICATION: Short of breath TECHNIQUE: Single frontal view of the chest is obtained. FINDINGS: The heart size is enlarged. The pulmonary vasculature is prominent. There is diffuse increased lung markings greater within the mid to lower lung cotto. Correlate for a telectasis and edema. Findings are worsening from comparison. Endotracheal tube is present with the tip above the vinod. Nasogastric tube transverses the thorax. [place] catheter is present with tip in the main pulmonary artery region. Left side chest tube is p resent. IMPRESSION: 1. Lines and catheters discussed above. 2. Worsening bilateral lung infiltrates. Correlate for pulmonary edema. 3. Cardiomegaly
--- NOTE | 2016-07-29 17:16 | P.PN ---
Subjective Principal diagnosis: Status post CABG postoperative day #0 This is a 80-year-old white male with history of multiple medical problems including hypertension, previous ischemic heart disease and mild aortic stenosis. End-stage renal disease on hemodialysis. History of rheumatoid arthritis, patient was admitted recently with chest pain, cardiac enzymes were suggestive of non-ST elevation myocardial infarction, cardiac cath showed significant coronary artery disease with critical lesion in the proximal LAD also the proximal RCA. Today, the patient underwent myocardial revascularization by Dr. Alcaraz, and he was placed on mechanical ventilation postoperatively, seen in the ICU for consultation and postoperative ventilator management. Presently, the patient is on 100% FiO2, assist control rate of 12, PEEP of 5, and tidal volume of 500. Initial ABG showed a pO2 of 364, pCO2 of 42 pH of 7.32. However shortly after patient was placed on a 50% FiO2, and he was noted to have significant drop in his saturation based on pulse oximetry. Repeat ABG showed worsening oxygenation with a pO2 of 46 pCO2 of 50 and pH of 7.28. Hence placed back on 100%, increased his rate up to 16, and increased the PEEP to 10. Follow-up chest x-ray showed worsening pulmonary edema, remind you patient is a hemodialysis patient. Follow-up ABG is pending. Patient is presently fully sedated, and in no distress. Objective - Vital Signs Vital signs: Vital Signs Temp 97.2 F L 07/29/16 16:00 Pulse 96 07/29/16 16:34 Resp 22 07/29/16 16:30 BP 141/58 07/29/16 15:40 Pulse Ox 100 07/29/16 16:30 Intake & Output 07/28/16 07/29/16 07/29/16 18:59 06:59 18:59 Intake Total 533 475 3995.083 Output Total 50 325 1139 Balance 197 97 7769.083 Weight 83.4 kg Intake: IV 160 350 303 Lactated Ringers 1,000 ml 200 @ 50 mls/hr IV .Q20H RINA Rx#:[id number] Sodium Chloride 0.9% 1, 160 000 ml @ 20 mls/hr IV . Q24H RINA Rx#:[id number] Intake, IV Titration 28.083 Amount Clevidipine Butyrate 25 3.633 mg In Empty Bag 1 bag @ 1 MG/HR 2 mls/hr IV .Q24H RINA Rx#:[id number] Nitroglycerin-D5w Pmx 50 24.45 mg In Dextrose/Water 1 250ml.bag @ 5 MCG/MIN 1.5 mls/hr IV .Q24H RINA Rx#: [id number] Oral 0 0 Blood Product 3858 Ffp 24 Cpd Unit 327 [id number] Ffp 24 Cpd Unit 317 [id number] Platelet Pheresis Acda3 201 Unit [id number] Rc As-1 Unit 310 [id number] Rc As-1 Unit 310 [id number] Rc As-1 Unit 310 [id number] Rc As-1 Unit 310 [id number] Output: Chest Tube Drainage 320 Chest Tube Lateral Chest 90 Chest Tube Mediastinal 230 Drainage 35 Right Knee 35 Urine 50 325 184 Estimated Blood Loss 600 Other: Voiding Method Urinal # Voids 1 1 ABP, PAP, CO, CI - Last Documented Arterial Blood Pressure 165/68 Pulmonary Artery Pressure 57/27 Cardiac Output 7.1 Cardiac Index 3.7 - Exam Physical Exam revealed a 80 year-old sedated, intubated, on mechanical ventilation, in no distress. Endotracheal tube is intact. HEENT:[Neck is supple.] [No neck masses.] [No thyromegaly.] [No JVD.] Chest: [Clear throughout, crackles and rhonchi at the bases.] Cardiac Exam: [Normal S1 and S2, no S3 gallop, no murmur. The pericardial rub] Abdomen: [Soft, nontender, no megaly, no rebound, no guarding, normal bowel sounds.] Extremities: [No clubbing, plus bipedal edema, no cyanosis.] Neurological Exam: [Not be assessed, patient is sedated on mechanical ventilation. - Labs CBC & Chem 7: 07/29/16 14:10 07/29/16 14:10 Labs: Abnormal Lab Results - Last 24 Hours (Table) 07/28/16 07/29/16 07/29/16 Range/Units 06:26 06:12 09:05 WBC (3.8-10.6) k/uL RBC 2.46 L 1.50 L (4.30-5.90) m/uL Hgb 8.3 L 4.8 L* D (13.0-17.5) gm/dL Hct 26.6 L 16.2 L* (39.0-53.0) % MCV 108.2 H 108.4 H (80.0-100.0) fL MCHC 29.5 L (31.0-37.0) g/dL RDW 15.8 H (11.5-15.5) % Plt Count 116 L (150-450) k/uL Neutrophils # (Manual) (1.3-7.7) k/uL PT (9.0-12.0) sec APTT (22.0-30.0) sec ABG pH (7.35-7.45) ABG pCO2 (35-45) mmHg ABG pO2 (83-108) mmHg ABG O2 Saturation (94-97) % Chloride (98-107) mmol/L Carbon Dioxide (22-30) mmol/L BUN (9-20) mg/dL Creatinine (0.66-1.25) mg/dL Glucose (74-99) mg/dL POC Glucose (mg/dL) (75-99) mg/dL Calcium (8.4-10.2) mg/dL Ionized Calcium Lance (4.5-5.3) mg/dL Alkaline Phosphatase (38-126) U/L Total Protein (6.3-8.2) g/dL Crossmatch See Detail 07/29/16 07/29/16 07/29/16 Range/Units 10:03 10:33 11:00 WBC (3.8-10.6) k/uL RBC (4.30-5.90) m/uL Hgb (13.0-17.5) gm/dL Hct (39.0-53.0) % MCV (80.0-100.0) fL MCHC (31.0-37.0) g/dL RDW (11.5-15.5) % Plt Count (150-450) k/uL Neutrophils # (Manual) (1.3-7.7) k/uL PT (9.0-12.0) sec APTT (22.0-30.0) sec ABG pH (7.35-7.45) ABG pCO2 (35-45) mmHg ABG pO2 (83-108) mmHg ABG O2 Saturation (94-97) % Chloride (98-107) mmol/L Carbon Dioxide (22-30) mmol/L BUN (9-20) mg/dL Creatinine (0.66-1.25) mg/dL Glucose (74-99) mg/dL POC Glucose (mg/dL) 121 H 122 H 129 H (75-99) mg/dL Calcium (8.4-10.2) mg/dL Ionized Calcium Lance (4.5-5.3) mg/dL Alkaline Phosphatase (38-126) U/L Total Protein (6.3-8.2) g/dL Crossmatch 07/29/16 07/29/16 07/29/16 Range/Units 11:52 12:36 12:57 WBC (3.8-10.6) k/uL RBC (4.30-5.90) m/uL Hgb (13.0-17.5) gm/dL Hct (39.0-53.0) % MCV (80.0-100.0) fL MCHC (31.0-37.0) g/dL RDW (11.5-15.5) % Plt Count (150-450) k/uL Neutrophils # (Manual) (1.3-7.7) k/uL PT (9.0-12.0) sec APTT (22.0-30.0) sec ABG pH (7.35-7.45) ABG pCO2 (35-45) mmHg ABG pO2 (83-108) mmHg ABG O2 Saturation (94-97) % Chloride (98-107) mmol/L Carbon Dioxide (22-30) mmol/L BUN (9-20) mg/dL Creatinine (0.66-1.25) mg/dL Glucose (74-99) mg/dL POC Glucose (mg/dL) 124 H 183 H 158 H (75-99) mg/dL Calcium (8.4-10.2) mg/dL Ionized Calcium Lance (4.5-5.3) mg/dL Alkaline Phosphatase (38-126) U/L Total Protein (6.3-8.2) g/dL Crossmatch 07/29/16 07/29/16 07/29/16 Range/Units 13:20 14:10 14:10 WBC 14.3 H (3.8-10.6) k/uL RBC 2.39 L (4.30-5.90) m/uL Hgb 7.4 L D (13.0-17.5) gm/dL Hct 23.1 L (39.0-53.0) % MCV (80.0-100.0) fL MCHC (31.0-37.0) g/dL RDW 19.5 H (11.5-15.5) % Plt Count 91 L (150-450) k/uL Neutrophils # (Manual) 12.2 H (1.3-7.7) k/uL PT (9.0-12.0) sec APTT (22.0-30.0) sec ABG pH (7.35-7.45) ABG pCO2 (35-45) mmHg ABG pO2 (83-108) mmHg ABG O2 Saturation (94-97) % Chloride 108 H (98-107) mmol/L Carbon Dioxide 20 L (22-30) mmol/L BUN 54 H (9-20) mg/dL Creatinine 5.76 H* (0.66-1.25) mg/dL Glucose 126 H (74-99) mg/dL POC Glucose (mg/dL) 155 H (75-99) mg/dL Calcium 6.8 L (8.4-10.2) mg/dL Ionized Calcium Lance 3.9 L (4.5-5.3) mg/dL Alkaline Phosphatase 34 L (38-126) U/L Total Protein 5.6 L (6.3-8.2) g/dL Crossmatch 07/29/16 07/29/16 07/29/16 Range/Units 14:10 14:15 14:35 WBC (3.8-10.6) k/uL RBC (4.30-5.90) m/uL Hgb (13.0-17.5) gm/dL Hct (39.0-53.0) % MCV (80.0-100.0) fL MCHC (31.0-37.0) g/dL RDW (11.5-15.5) % Plt Count (150-450) k/uL Neutrophils # (Manual) (1.3-7.7) k/uL PT 15.4 H (9.0-12.0) sec APTT 39.9 H (22.0-30.0) sec ABG pH 7.32 L (7.35-7.45) ABG pCO2 (35-45) mmHg ABG pO2 364 H (83-108) mmHg ABG O2 Saturation 100.0 H (94-97) % Chloride (98-107) mmol/L Carbon Dioxide (22-30) mmol/L BUN (9-20) mg/dL Creatinine (0.66-1.25) mg/dL Glucose (74-99) mg/dL POC Glucose (mg/dL) 141 H (75-99) mg/dL Calcium (8.4-10.2) mg/dL Ionized Calcium Lance (4.5-5.3) mg/dL Alkaline Phosphatase (38-126) U/L Total Protein (6.3-8.2) g/dL Crossmatch 07/29/16 07/29/16 07/29/16 Range/Units 14:53 15:51 15:56 WBC (3.8-10.6) k/uL RBC (4.30-5.90) m/uL Hgb (13.0-17.5) gm/dL Hct (39.0-53.0) % MCV (80.0-100.0) fL MCHC (31.0-37.0) g/dL RDW (11.5-15.5) % Plt Count (150-450) k/uL Neutrophils # (Manual) (1.3-7.7) k/uL PT (9.0-12.0) sec APTT (22.0-30.0) sec ABG pH 7.28 L (7.35-7.45) ABG pCO2 50 H (35-45) mmHg ABG pO2 46 L (83-108) mmHg ABG O2 Saturation 75.0 L (94-97) % Chloride (98-107) mmol/L Carbon Dioxide (22-30) mmol/L BUN (9-20) mg/dL Creatinine (0.66-1.25) mg/dL Glucose (74-99) mg/dL POC Glucose (mg/dL) 132 H 135 H (75-99) mg/dL Calcium (8.4-10.2) mg/dL Ionized Calcium Lance (4.5-5.3) mg/dL Alkaline Phosphatase (38-126) U/L Total Protein (6.3-8.2) g/dL Crossmatch Assessment and Plan Plan: Impression: 1 status post CABG, on mechanical ventilation, postoperative day #0. 2 acute pulmonary edema as noted on the chest x-ray, patient is a hemodialysis patient and his history of chronic renal disease. 3 history of mild aortic stenosis 4 history of mild LV dysfunction 5 history of chronic anemia 6 history of chronic renal failure on hemodialysis 7 history of hypertension 8 history of hyperlipidemia 9 history of right groin pseudoaneurysm following cardiac catheterization. 10 history of right-sided epistaxis felt to be related to previous a staphylococcal colonization, 11 history of rheumatoid arthritis Recommendation: Continue ventilatory support, hence settings were adjusted to address his relative hypoxemia postoperatively patient may have to be dialyzed tomorrow. We'll continue to follow. Time with Patient: Greater than 30
[2016-07-29 17:26] LABS: Glucose,Whole Blood 141 mg/dL (75-99)
[2016-07-29 17:32] LABS: ABG Base Excess -1.6 mmol/L; ABG HCO3 23 mmol/L (21-25); ABG PCO2 38 mmHg (35-45); ABG PO2 141 mmHg (83-108); ABG TCO2 24 mmol/L (19-24)
[2016-07-29 17:40] LABS: INR 1.2 (<1.1); Partial Thromboplastin Time 29.5 sec (22.0-30.0); Prothrombin Time 12.3 sec (9.0-12.0)
[2016-07-29 17:41] LABS: Anisocytosis Moderate; Basophils % (A) 0 %; CH 30.3; CHCM 33.1; Eosinophils # (A) 0.2 k/uL (0-0.7); Eosinophils % (A) 2 %; HCT 20.7 % (39.0-53.0); HDW 3.61; HGB 7.3 gm/dL (13.0-17.5); Hypochromasia Slight; Luc # (Auto) 0.26; Luc % (Auto) 2; Lymphocytes # (A) 0.7 k/uL (1.0-4.8); Lymphocytes % (A) 6 %; MCH 32.6 pg (25.0-35.0); MCHC 35.1 g/dL (31.0-37.0); MCV 92.8 fL (80.0-100.0); Macrocytosis Slight; Mean Platelet Volume 8.4; Monocytes # (A) 0.7 k/uL (0-1.0); Monocytes % (A) 6 %; Neutrophils % (A) 83 %; Poikilocytosis Slight; RBC 2.23 m/uL (4.30-5.90); WBC 10.8 k/uL (3.8-10.6); WBC (Perox) 10.92
[2016-07-29] MEDS: ACETAMINOPHEN IV (For NPO) 1,000 MG in EMPTY BAG 1 BAG IVPB SCH ×2 (18:00→23:00)
[2016-07-29 18:10] LABS: Glucose,Whole Blood 139 mg/dL (75-99)
[2016-07-29 18:14] LABS: Potassium 4.4 mmol/L (3.5-5.1); Total Bilirubin 2.7 mg/dL (0.2-1.3); Total Protein 6.1 g/dL (6.3-8.2)
[2016-07-29] MEDS ORDERED: FUROSEMIDE 10 MG/ML 10 ML VIAL IV STA (18:27)
[2016-07-29] MEDS ORDERED: CALCIUM GLUCONATE 1,000 MG in SODIUM CHLORIDE 0.9% 100 ML IVPB ONE (19:00)
[2016-07-29 20:06] LABS: Glucose,Whole Blood 140 mg/dL (75-99)
--- NOTE | 2016-07-29 20:21 | P.PN ---
Progress Note - Text Procedure performed: Transesophageal echocardiography Indication for the procedure: Coronary artery bypass graft surgery (off-pump), ischemia monitoring, assessment of valvular function, intracardiac air monitoring, assessment of regional wall motion abnormalities and hemodynamic monitoring. Probe insertion: Under general anesthesia, uneventful. Left ventricle is normal in size and ejection fraction appears to be 40-45%. There is mild global hypokinesia. Left atrium is normal in size. No thrombus seen in the appendage. Right atrium normal in size. Interatrial septum appears to be normal with the PFO. No shunting seen by bubble study. Right ventricle normal in structure and function. Aortic valve appears to be sclerotic. The valve area by continuity condition is calculated as 1 cm. Mean gradient is 9 mm of hg. Peak gradient is 18 mmHg. Mild AI noted. Mitral valve normal in anatomy with mild mitral regurgitation seen. Trivial tricuspid and pulmonic regurgitation seen. Descending aorta grade 2 atheroma seen. No pericardial effusion seen. Post bypass grafting: No new changes observed.
[2016-07-29 21:02] LABS: Glucose,Whole Blood 137 mg/dL (75-99)
[2016-07-29 22:08] LABS: Glucose,Whole Blood 133 mg/dL (75-99)
[2016-07-29] MEDS: CHLORHEXIDINE GLUCONATE 15 ML CUP MUCOUS MEM SCH (22:09)
[2016-07-29] MEDS: HEPARIN SODIUM,PORCINE 5,000 UNIT/ML 1 ML VIAL SQ SCH (22:10)
[2016-07-29 22:26] LABS: Ionized Calcium 4.2 mg/dL (4.5-5.3)
[2016-07-29 22:33] LABS: Anisocytosis Moderate; Basophils % (A) 0 %; CH 30.3; CHCM 33.2; Eosinophils # (A) 0.1 k/uL (0-0.7); Eosinophils % (A) 1 %; HDW 3.72; Hypochromasia Slight; Luc # (Auto) 0.11; Luc % (Auto) 1; Lymphocytes # (A) 0.2 k/uL (1.0-4.8); Lymphocytes % (A) 3 %; MCH 30.9 pg (25.0-35.0); MCHC 33.4 g/dL (31.0-37.0); MCV 92.4 fL (80.0-100.0); Macrocytosis Slight; Mean Platelet Volume 7.6; Monocytes # (A) 0.4 k/uL (0-1.0); Monocytes % (A) 4 %; Neutrophils # (A) 8.4 k/uL (1.3-7.7); Neutrophils % (A) 91 %; Poikilocytosis Slight; RBC 2.09 m/uL (4.30-5.90); RDW 20.4 % (11.5-15.5); WBC 9.2 k/uL (3.8-10.6); WBC (Perox) 9.71
[2016-07-29 22:36] LABS: Calcium 7.9 mg/dL (8.4-10.2); HCT 19.4 % (39.0-53.0); HGB 6.5 gm/dL (13.0-17.5); Magnesium 2.3 mg/dL (1.6-2.3); Phosphorous 4.6 mg/dL (2.5-4.5); Potassium 4.8 mmol/L (3.5-5.1)
[2016-07-29 22:54] LABS: Anisocytosis Moderate; CH 30.3; CHCM 33.2; HDW 3.69; Hypochromasia Slight; MCH 31.9 pg (25.0-35.0); MCHC 34.5 g/dL (31.0-37.0); MCV 92.4 fL (80.0-100.0); Macrocytosis Slight; Mean Platelet Volume 8.2; Poikilocytosis Slight; RBC 2.02 m/uL (4.30-5.90); RDW 20.1 % (11.5-15.5); WBC 9.3 k/uL (3.8-10.6)
[2016-07-29 22:55] LABS: HCT 18.7 % (39.0-53.0); HGB 6.5 gm/dL (13.0-17.5)
[2016-07-29 23:08] LABS: Glucose,Whole Blood 126 mg/dL (75-99)
[2016-07-29 23:57] LABS: Glucose,Whole Blood 125 mg/dL (75-99)
[2016-07-30] MEDS: PROPOFOL 500 MG in EMPTY BAG 1 BAG IV SCH ×9 (00:51→22:27)
[2016-07-30 00:58] LABS: Glucose,Whole Blood 126 mg/dL (75-99)
[2016-07-30] MEDS: MORPHINE SULFATE 2 MG/ML SYRINGE IVP PRN ×9 (01:08→23:34)
[2016-07-30 02:01] LABS: Glucose,Whole Blood 128 mg/dL (75-99)
[2016-07-30 03:06] LABS: Glucose,Whole Blood 131 mg/dL (75-99)
[2016-07-30] MEDS: IPRATROPIUM-ALBUTEROL 3 ML NEB INHALATION SCH ×6 (03:13→23:10)
[2016-07-30 04:16] LABS: Glucose,Whole Blood 130 mg/dL (75-99)
[2016-07-30 05:21] LABS: Glucose,Whole Blood 129 mg/dL (75-99)
[2016-07-30] MEDS: NITROGLYCERIN-D5W PMX 50 MG in DEXTROSE/WATER 1 250ML.BAG IV SCH (05:26)
[2016-07-30 06:05] LABS: Glucose,Whole Blood 131 mg/dL (75-99)
[2016-07-30 06:27] LABS: Anisocytosis Moderate; Basophils % (A) 0 %; CH 30.1; CHCM 33.5; Eosinophils # (A) 0.1 k/uL (0-0.7); Eosinophils % (A) 1 %; HCT 21.7 % (39.0-53.0); HDW 3.67; HGB 7.6 gm/dL (13.0-17.5); Hypochromasia Slight; Luc % (Auto) 2; Lymphocytes # (A) 0.5 k/uL (1.0-4.8); Lymphocytes % (A) 5 %; MCHC 35.1 g/dL (31.0-37.0); MCV 91.1 fL (80.0-100.0); Macrocytosis Slight; Mean Platelet Volume 7.7; Monocytes # (A) 0.4 k/uL (0-1.0); Monocytes % (A) 4 %; Neutrophils # (A) 8.6 k/uL (1.3-7.7); Neutrophils % (A) 88 %; Poikilocytosis Slight; RBC 2.38 m/uL (4.30-5.90); RDW 20.2 % (11.5-15.5); WBC 9.8 k/uL (3.8-10.6); WBC (Perox) 9.54
[2016-07-30 06:30] LABS: Ionized Calcium 4.3 mg/dL (4.5-5.3)
[2016-07-30] MEDS: ACETAMINOPHEN IV (For NPO) 1,000 MG in EMPTY BAG 1 BAG IVPB SCH ×3 (06:58→19:42)
[2016-07-30 07:10] LABS: Glucose,Whole Blood 122 mg/dL (75-99)
[2016-07-30 07:11] LABS: Calcium 8.1 mg/dL (8.4-10.2); Magnesium 2.2 mg/dL (1.6-2.3); Potassium 4.9 mmol/L (3.5-5.1); Total Bilirubin 1.2 mg/dL (0.2-1.3); Total Protein 5.4 g/dL (6.3-8.2)
[2016-07-30 08:06] LABS: ABG Base Excess -2.9 mmol/L; ABG HCO3 21 mmol/L (21-25); ABG PCO2 36 mmHg (35-45); ABG PH 7.39 (7.35-7.45); ABG PO2 69 mmHg (83-108); ABG TCO2 23 mmol/L (19-24)
[2016-07-30 08:10] LABS: Glucose,Whole Blood 124 mg/dL (75-99)
[2016-07-30] MEDS ORDERED: CALCIUM GLUCONATE 1,000 MG in SODIUM CHLORIDE 0.9% 100 ML IVPB ONE (08:29)
--- NOTE | 2016-07-30 08:46 | OP ---
DATE OF SERVICE: 07/29/2016 SURGEON: Elvie Alcaraz MD OVERNIGHT CAREGIVER: John Campuzano and IRMA Bell PREOPERATIVE DIAGNOSES: 1. Double vessel coronary artery disease, preserved left ventricular function, mild to moderate mitral valve regurgitation, mild to moderate aortic valve stenosis, moderate pulmonary hypertension. 2. Non-ST elevation myocardial infarction. 3. End-stage renal disease on hemodialysis. 4. Hyperlipidemia. 5. Hypertension. 6. Rheumatoid arthritis. 7. Chronic steroid usage. 8. Nonhealing ulcer, left foot. 9. History of methicillin-resistant Staphylococcus aureus infection of his left arm. 10. Nasal septal ulcer with epistaxis. POSTOPERATIVE DIAGNOSES: 1. Double vessel coronary artery disease, preserved left ventricular function, mild to moderate mitral valve regurgitation, mild to moderate aortic valve stenosis, moderate pulmonary hypertension. 2. Non-ST elevation myocardial infarction. 3. End-stage renal disease on hemodialysis. 4. Hyperlipidemia. 5. Hypertension. 6. Rheumatoid arthritis. 7. Chronic steroid usage. 8. Nonhealing ulcer, left foot. 9. History of methicillin-resistant Staphylococcus aureus infection of his left arm. 10. Nasal septal ulcer with epistaxis. OPERATION: 1. Non-aortic clamp off pump double coronary artery bypass grafting using the left internal mammary artery to the left anterior descending artery and reverse saphenous vein graft from the aorta to the posterior descending artery. 2. Endoscopic harvesting of the right greater saphenous vein. 3. Intraoperative transesophageal echocardiogram and epiaortic scanning. 4. Intraoperative graft flow measurements using the medicine machine. ANESTHESIA: ESTIMATED BLOOD LOSS: SPECIMENS REMOVED: COMPLICATIONS: OPERATIVE FINDINGS: INDICATION FOR SURGERY: Patient is 80-year-old gentleman who was admitted to [facility] and was ruled in for non-ST elevation myocardial infarction. Patient is on hemodialysis. Patient was brought to [facility] where cardiac catheterization showed severe proximal left anterior descending artery stenosis post stenotic dilatation as well as severe proximal right coronary artery stenosis. The circumflex artery system was without any significant flow-limiting lesions. Two-D echo at [facility] showed inferior hypokinesia with overall preserved function, mild to moderate mitral valve regurgitation, mild to moderate aortic valve stenosis and moderate pulmonary hypertension. In view of age, endstage renal disease and comorbidities, patient is scheduled for only coronary artery bypass grafting that we hope to perform on a beating heart. Risks, benefits, and alternatives were discussed with him and his . They understood them and agreed to proceed. DESCRIPTION OF THE PROCEDURE: Patient had a right internal jugular [place] catheter and a right radial arterial line inserted in the preoperative holding area. His PA pressure was 57/30. Cardiac index was 3. He was brought to the operating room, where general endotracheal anesthesia was induced uneventfully. He received 1.250 mg of vancomycin intravenously. The [place] catheter was inserted. Chest, abdomen and both lower extremities were prepped and draped using ChloraPrep. Ioban was used to cover the skin. Transesophageal echocardiogram showed preserved left ventricular function, mild mitral valve regurgitation, mild to moderate aortic valve stenosis with one calcific os not mobile with a valve area of around 1.4 to 1.5 sq cm and no significant tricuspid valve regurgitation at this point. Midline sternotomy was performed and the bone was very profusely bleeding. The left hemisternum was elevated and left internal mammary artery was harvested in a somewhat skeletonized fashion. The left pleura was intentionally opened and this process was drained with 28 Japanese chest tube. We noticed 2 pinpoint holes in the left lung with some air leak that I oversewn appropriately with Prolene 6-0. At some point during the case there was evidence of ecchymotic part of the lung probably denoting some hemorrhage intraparenchymally and there was some ET tube blood noted that stopped. The right pleura remained grossly intact. We had no problem oxygenating. In the same setting, the right greater saphenous vein was harvested endoscopically from groin to mid calf level. The vein was prepared and all the branches tied. The leg incisions were closed over a NEYDA drain. The vein appeared to be of good quality, around 4 mm in diameter. Heparinization to achieve an ACT above 250 seconds was administered. The mammary artery was double clipped distally and transected, had an excellent pulsatile flow in it and was around 1.75 mm in diameter. The Acrobat system along with the exposed device were used to perform the surgery on a beating heart. Epiaortic scanning revealed no protruding atheroma in the ascending aorta. Subsequently as we opened the pericardium we encountered pericardial adhesions that we mostly were able to lyse bluntly and the whole heart was freed. Pericardial cradle was created. The aorta was soft and the heart was fatty. Her calcific disease all along the right coronary artery was deep in epicardial and the proximal to mid left anterior descending artery. The distal left anterior descending artery segment was soft. The first anastomosis was between the left internal mammary artery and the mid to distal third of the left anterior descending artery, which was opened, had profuse flow in it, accepted a 1.5 mm shunt using Prolene 7-0 in continuous fashion. The shunt was removed before completing the anastomosis, which was well tolerated. Graft flow measurements using the medicine team system showed a flow of 48 mL per minute, pulsatility index of 2.4 and a diastolic filling of 81% denoting an excellent functioning graft. At this point, we looked at the inferior wall to try to identify the distal tributaries off the right coronary artery, namely the posterior descending artery. Again, the inferior wall was very fatty and I had to use the epiaortic scanning probe to locate basically initially the right coronary artery, which was deep epicardial in the AV groove. It really went deep intramyocardial as it bifurcated and I could not follow the PDA at that level. At the mid ventricular aspect of the RV inferiorly and using the epiaortic scanning, I identified the posterior descending artery, which again was deep behind the large posterior vein. It was followed proximally staying very deep in the epicardium and even in an intramyocardial position and finally I was able to get a segment potentially for bypass. The distance between that artery and the aorta was measured and a segment of vein was fashioned accordingly, loaded on the passport device and deployed on the anterior aspect of the proximal aorta. There was excellent flow from the other end of the vein and the proximal anastomosis was hemostatic. The second and last distal anastomosis was between that segment of vein graft and the posterior descending artery, which was opened, accepted 1.25 mm shunt, had low flow in it, using Prolene 7-0 in continuous fashion. The vein was de-aired and the shunt was removed before completing the anastomosis, which was reasonably well tolerated. Graft flow measurement at this point revealed a flow 107 mL per minute, pulsatility index of 1.2 and diastolic filling of 54%, showing an excellent function graft. With that test dose and full dose protamine was given. Two substernal chest tubes were placed. A deep groove was made in the left pleural pericardial fat to accommodate the mammary artery medial to the lung and away from the posterior sternal table. Transesophageal echocardiogram showed preserved left ventricular function. After ensuring adequate hemostasis and hemodynamics and after approximating the pericardial fat over the graft going to the posterior descending artery, which ran anteriorly on the RV, the sternum was approximated using 5 [id number] [place] cable after interposing fibrillar between the sternal edges. Thorough irrigation with cefazolin followed. The rest of the closure proceeded in layers. Skin glue was applied. Patient received a total of 3 units of packed red blood cells as his starting hematocrit was 5.4 and received 600 mL of Cell Saver blood. I elected to give him 6 units of platelets and 2 units of FFP at the end of the case in view of gross coagulopathy. FOREIGN
--- NOTE | 2016-07-30 08:48 | PN ---
DATE OF SERVICE: 07/29/2016 This 80 -year-old gentleman admitted with underwent coronary artery bypass grafting x2. The patient mechanically ventilated postoperatively. At this time the patient being closely monitored in the ICU. On exam, pulse 91, blood pressure 163/80. Respiratory rate 20. Temperature 98.2, pulse ox 97% on mechanical ventilation. Pulse ox mechanical 98% . HEENT: Conjunctivae normal. NECK: No jugular venous distention. CARDIOVASCULAR: S1, S2 muffled. RESPIRATORY: noted. ABDOMEN: Soft. Nervous system: Mechanically sedated. LABS: WBC 10.9, hemoglobin is 11.3 and INR 12, creatinine 5.85. ASSESSMENT: 1. Acute non-ST segment myocardial infarction with chest pain, status post catheterization showing severe coronaries status post coronary artery bypass grafting x2. 2. Chronic renal failure stage V, on hemodialysis. 3. Anemia, microcytic secondary to hemodialysis and renal failure. 4. Epistaxis secondary to septal ulcer, improved. 5. Right groin pseudoaneurysm less than 1 cm with hematoma, status post compression improvement. 6. Increased random blood sugar. 7. Diffuse aches and pains because of rheumatoid arthritis. 8. History of congestive heart failure with chronic systolic dysfuntion EF of 40 %. 9. History of hypertension, essential. 10. Hyperlipidemia. 11. History of degenerative joint disease. 12. History of myocardial infarction. 13. History of rheumatoid arthritis. 14. History of multiple organisms growing from the wound. 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 15. Tonsillectomy. 16. History of degenerative joint disease. 17. FULL CODE. RECOMMENDATIONS AND DISCUSSION: Recommend to continue current medications. Continue with symptomatic treatment. Otherwise, continue mechanical ventilation. Otherwise continue to monitor. Closely follow with multiple consultants. Further recommendations to follow. Monitor blood sugars closely. FOREIGN
[2016-07-30] MEDS: HEPARIN SODIUM,PORCINE 5,000 UNIT/ML 1 ML VIAL SQ SCH ×2 (08:53→19:40)
[2016-07-30] MEDS: PANTOPRAZOLE 40 MG/10 ML VIAL IVP SCH (08:54)
[2016-07-30] MEDS: ATORVASTATIN 40 MG TAB PO SCH (08:55)
[2016-07-30] MEDS: CHLORHEXIDINE GLUCONATE 15 ML CUP MUCOUS MEM SCH ×2 (08:55→21:34)
[2016-07-30] MEDS: MUPIROCIN 2% OINT 22 GM TUBE NASAL SCH ×2 (08:56→21:34)
[2016-07-30] MEDS ORDERED: METOPROLOL TARTRATE 12.5 MG TAB PO SCH (09:00)
[2016-07-30] MEDS ORDERED: ASPIRIN 325 MG TAB PO SCH (09:00)
[2016-07-30] MEDS ORDERED: CLOPIDOGREL 75 MG TAB PO SCH (09:00)
--- NOTE | 2016-07-30 09:00 | PN ---
This is a 80-year-old gentleman who presented to hospital with significant difficulties with cough and not feeling well. Evaluation revealed evidence of significant coronary artery disease and underwent cardiac catheterization with evidence of extensive vessel disease and need for coronary artery bypass grafting procedure. The patient's CABG has occurred this morning and he is in the intensive care unit recovering well. The original postoperative hypotension has now been replaced by hypertension is being managed carefully at this point in time. The patient is intubated, sedated, and mechanically ventilated and is comfortable. He is anicteric. No thrush around the endotracheal tube. The lungs have coarse crackles throughout the lung cotto. The heart is regular and hyperdynamic. The abdomen is soft and quiet. Extremities have the chronic edema and chronic ulceration to the left heel is without acute change. No new cultures at this point in time, but did have the history of MRSA. Consequently, Mr. Xie will continue with the vancomycin protocol, which already is probably just one dose because of his endstage renal disease for his prior MRSA. He is improving here in the postoperative time frame. Continue local wound care to the heel as he has before. Continue ongoing supportive care.
[2016-07-30 09:27] LABS: Glucose,Whole Blood 123 mg/dL (75-99)
--- NOTE | 2016-07-30 09:30 | P.PN ---
Subjective Principal diagnosis: Non-ST elevation myocardial infarction. POD #1 non-aortic clamp off pump double coronary artery bypass grafting using the left internal mammary artery to the left anterior descending artery and reverse saphenous vein graft from the aorta to the posterior descending artery. Endoscopic harvesting of the right greater saphenous vein. Intraoperative transesophageal echocardiogram and epi-aortic scanning. Intraoperative graft flow measurements using the Medistim machine. Patient currently sedated on the ventilator. Objective - Vital Signs Vital signs: Vital Signs Temp 98.4 F 07/30/16 03:32 Pulse 79 07/30/16 08:10 Resp 10 L 07/30/16 07:30 BP 127/54 07/30/16 03:32 Pulse Ox 96 07/30/16 07:30 Intake & Output 07/29/16 07/30/16 07/30/16 18:59 06:59 18:59 Intake Total 4356.283 2050.522 169.828 Output Total 1254 897 60 Balance 3102.283 1153.522 109.828 Weight 87.6 kg Intake: IV 403 808 59 CO/CI 100 Lactated Ringers 1,000 ml 300 600 50 @ 20 mls/hr IV .Q24H [facility] Rx#:[id number] Pressure Bag 108 9 Intake, IV Titration 95.283 572.522 110.828 Amount Calcium Gluconate 1,000 100 mg In Sodium Chloride 0.9 % 100 ml @ 100 mls/hr IVPB ONCE ONE Rx#: [id number] Clevidipine Butyrate 25 20.833 25.966 3.201 mg In Empty Bag 1 bag @ 1 MG/HR 2 mls/hr IV .Q24H [facility] Rx#:[id number] Insulin Regular 100 unit 3.242 15.377 In Sodium Chloride 0.9% 100 ml @ Per Protocol IV .Q0M [facility] Rx#:[id number] Nitroglycerin-D5w Pmx 50 24.45 193.5 42.25 mg In Dextrose/Water 1 250ml.bag @ 5 MCG/MIN 1.5 mls/hr IV .Q24H [facility] Rx#: [id number] Propofol 500 mg In Empty 50.000 249.814 50 Bag 1 bag @ Titrate IV . Q0M [facility] Rx#:[id number] Blood Product 3858 620 Ffp 24 Cpd Unit 327 [id number] Ffp 24 Cpd Unit 317 [id number] Platelet Pheresis Acda3 201 Unit [id number] Rc As-1 Unit 310 [id number] Rc As-1 Unit 310 [id number] Rc As-1 Unit 310 [id number] Rc As-1 Unit 310 [id number] Rc Pheresis 2 As3 Unit 310 [id number] Other 50 Rc Pheresis 2 As3 Unit 50 [id number] Output: Chest Tube Drainage 410 572 40 Chest Tube Lateral Chest 130 272 20 Chest Tube Mediastinal 280 300 20 Drainage 35 35 Right Knee 35 35 Urine 209 290 20 Estimated Blood Loss 600 Other: Voiding Method Indwelling Catheter Indwelling Catheter ABP, PAP, CO, CI - Last Documented Arterial Blood Pressure 123/48 Pulmonary Artery Pressure 41/20 Cardiac Output 7.7 Cardiac Index 4 - Constitutional General appearance: Present: cooperative, no acute distress - Respiratory Details: Lungs sounds diminished bilaterally, left greater than right. Respirations even , nonlabored on mechanical ventilation. Current ventilator settings assist control, FiO2 60%, respiratory rate 16, PEEP 10. 9.0 ET tube, 25 at the lip. Left pleural chest tube to -20 cm wall suction, 190 mL serous fluid drainage in the last 8 hours, 450 mL drainage since surgery. Mediastinal chest tubes to - 20 cm wall suction, 200 mL serosanguineous fluid in the last 8 hours, 640 mL since surgery. No air leak present. - Cardiovascular Details: S1, S2 present. Regular rate and rhythm, normal sinus rhythm on telemetry. Sternum stable. Hornbrook-Dylon catheter present. Trace bilateral lower extremity edema present. Teds/SCDs present. Left upper extremity AV fistula, positive bruit, positive thrill. - Gastrointestinal Gastrointestinal Comment(s): Abdomen soft, nondistended. Hypoactive bowel sounds present 4 quadrants. The OG tube present to low intermittent suction. - Genitourinary Genitourinary Comment(s): Sparks present draining clear, yellow urine. Approximately 10-30 mL per hour. - Integumentary Integumentary Comment(s): Anterior chest wall covered with dry intact silver dressing. Right lower extremity EVH site well approximated with NEYDA draining minimal amount serosanguineous fluid. Soft boot present over left foot wound. - Musculoskeletal Musculoskeletal: Present: strength equal bilaterally - Psychiatric Psychiatric Comment(s): Patient does wake up even on sedation, follows commands, tracks movement. - Allied health notes Allied health notes reviewed: nursing - Labs CBC & Chem 7: 07/30/16 06:00 07/30/16 06:00 Labs: Abnormal Lab Results - Last 24 Hours (Table) 07/28/16 07/29/16 07/29/16 Range/Units 06:26 09:05 10:03 WBC (3.8-10.6) k/uL RBC 1.50 L (4.30-5.90) m/uL Hgb 4.8 L* D (13.0-17.5) gm/dL Hct 16.2 L* (39.0-53.0) % MCV 108.4 H (80.0-100.0) fL MCHC 29.5 L (31.0-37.0) g/dL RDW 15.8 H (11.5-15.5) % Plt Count 116 L (150-450) k/uL Neutrophils # (1.3-7.7) k/uL Neutrophils # (Manual) (1.3-7.7) k/uL Lymphocytes # (1.0-4.8) k/uL PT (9.0-12.0) sec APTT (22.0-30.0) sec ABG pH (7.35-7.45) ABG pCO2 (35-45) mmHg ABG pO2 (83-108) mmHg ABG O2 Saturation (94-97) % Chloride (98-107) mmol/L Carbon Dioxide (22-30) mmol/L BUN (9-20) mg/dL Creatinine (0.66-1.25) mg/dL Glucose (74-99) mg/dL POC Glucose (mg/dL) 121 H (75-99) mg/dL Calcium (8.4-10.2) mg/dL Ionized Calcium Lance (4.5-5.3) mg/dL Phosphorus (2.5-4.5) mg/dL Total Bilirubin (0.2-1.3) mg/dL Alkaline Phosphatase (38-126) U/L Total Protein (6.3-8.2) g/dL Crossmatch See Detail 07/29/16 07/29/16 07/29/16 Range/Units 10:33 11:00 11:52 WBC (3.8-10.6) k/uL RBC (4.30-5.90) m/uL Hgb (13.0-17.5) gm/dL Hct (39.0-53.0) % MCV (80.0-100.0) fL MCHC (31.0-37.0) g/dL RDW (11.5-15.5) % Plt Count (150-450) k/uL Neutrophils # (1.3-7.7) k/uL Neutrophils # (Manual) (1.3-7.7) k/uL Lymphocytes # (1.0-4.8) k/uL PT (9.0-12.0) sec APTT (22.0-30.0) sec ABG pH (7.35-7.45) ABG pCO2 (35-45) mmHg ABG pO2 (83-108) mmHg ABG O2 Saturation (94-97) % Chloride (98-107) mmol/L Carbon Dioxide (22-30) mmol/L BUN (9-20) mg/dL Creatinine (0.66-1.25) mg/dL Glucose (74-99) mg/dL POC Glucose (mg/dL) 122 H 129 H 124 H (75-99) mg/dL Calcium (8.4-10.2) mg/dL Ionized Calcium Lance (4.5-5.3) mg/dL Phosphorus (2.5-4.5) mg/dL Total Bilirubin (0.2-1.3) mg/dL Alkaline Phosphatase (38-126) U/L Total Protein (6.3-8.2) g/dL Crossmatch 07/29/16 07/29/16 07/29/16 Range/Units 12:36 12:57 13:20 WBC (3.8-10.6) k/uL RBC (4.30-5.90) m/uL Hgb (13.0-17.5) gm/dL Hct (39.0-53.0) % MCV (80.0-100.0) fL MCHC (31.0-37.0) g/dL RDW (11.5-15.5) % Plt Count (150-450) k/uL Neutrophils # (1.3-7.7) k/uL Neutrophils # (Manual) (1.3-7.7) k/uL Lymphocytes # (1.0-4.8) k/uL PT (9.0-12.0) sec APTT (22.0-30.0) sec ABG pH (7.35-7.45) ABG pCO2 (35-45) mmHg ABG pO2 (83-108) mmHg ABG O2 Saturation (94-97) % Chloride (98-107) mmol/L Carbon Dioxide (22-30) mmol/L BUN (9-20) mg/dL Creatinine (0.66-1.25) mg/dL Glucose (74-99) mg/dL POC Glucose (mg/dL) 183 H 158 H 155 H (75-99) mg/dL Calcium (8.4-10.2) mg/dL Ionized Calcium Lance (4.5-5.3) mg/dL Phosphorus (2.5-4.5) mg/dL Total Bilirubin (0.2-1.3) mg/dL Alkaline Phosphatase (38-126) U/L Total Protein (6.3-8.2) g/dL Crossmatch 07/29/16 07/29/16 07/29/16 Range/Units 14:10 14:10 14:10 WBC 14.3 H (3.8-10.6) k/uL RBC 2.39 L (4.30-5.90) m/uL Hgb 7.4 L D (13.0-17.5) gm/dL Hct 23.1 L (39.0-53.0) % MCV (80.0-100.0) fL MCHC (31.0-37.0) g/dL RDW 19.5 H (11.5-15.5) % Plt Count 91 L (150-450) k/uL Neutrophils # (1.3-7.7) k/uL Neutrophils # (Manual) 12.2 H (1.3-7.7) k/uL Lymphocytes # (1.0-4.8) k/uL PT 15.4 H (9.0-12.0) sec APTT 39.9 H (22.0-30.0) sec ABG pH (7.35-7.45) ABG pCO2 (35-45) mmHg ABG pO2 (83-108) mmHg ABG O2 Saturation (94-97) % Chloride 108 H (98-107) mmol/L Carbon Dioxide 20 L (22-30) mmol/L BUN 54 H (9-20) mg/dL Creatinine 5.76 H* (0.66-1.25) mg/dL Glucose 126 H (74-99) mg/dL POC Glucose (mg/dL) (75-99) mg/dL Calcium 6.8 L (8.4-10.2) mg/dL Ionized Calcium Lance 3.9 L (4.5-5.3) mg/dL Phosphorus (2.5-4.5) mg/dL Total Bilirubin (0.2-1.3) mg/dL Alkaline Phosphatase 34 L (38-126) U/L Total Protein 5.6 L (6.3-8.2) g/dL Crossmatch 07/29/16 07/29/16 07/29/16 Range/Units 14:15 14:35 14:53 WBC (3.8-10.6) k/uL RBC (4.30-5.90) m/uL Hgb (13.0-17.5) gm/dL Hct (39.0-53.0) % MCV (80.0-100.0) fL MCHC (31.0-37.0) g/dL RDW (11.5-15.5) % Plt Count (150-450) k/uL Neutrophils # (1.3-7.7) k/uL Neutrophils # (Manual) (1.3-7.7) k/uL Lymphocytes # (1.0-4.8) k/uL PT (9.0-12.0) sec APTT (22.0-30.0) sec ABG pH 7.32 L (7.35-7.45) ABG pCO2 (35-45) mmHg ABG pO2 364 H (83-108) mmHg ABG O2 Saturation 100.0 H (94-97) % Chloride (98-107) mmol/L Carbon Dioxide (22-30) mmol/L BUN (9-20) mg/dL Creatinine (0.66-1.25) mg/dL Glucose (74-99) mg/dL POC Glucose (mg/dL) 141 H 132 H (75-99) mg/dL Calcium (8.4-10.2) mg/dL Ionized Calcium Lance (4.5-5.3) mg/dL Phosphorus (2.5-4.5) mg/dL Total Bilirubin (0.2-1.3) mg/dL Alkaline Phosphatase (38-126) U/L Total Protein (6.3-8.2) g/dL Crossmatch 07/29/16 07/29/16 07/29/16 Range/Units 15:51 15:56 17:20 WBC 10.8 H (3.8-10.6) k/uL RBC 2.23 L (4.30-5.90) m/uL Hgb 7.3 L (13.0-17.5) gm/dL Hct 20.7 L (39.0-53.0) % MCV (80.0-100.0) fL MCHC (31.0-37.0) g/dL RDW 20.0 H (11.5-15.5) % Plt Count 87 L (150-450) k/uL Neutrophils # 9.0 H (1.3-7.7) k/uL Neutrophils # (Manual) (1.3-7.7) k/uL Lymphocytes # 0.7 L (1.0-4.8) k/uL PT (9.0-12.0) sec APTT (22.0-30.0) sec ABG pH 7.28 L (7.35-7.45) ABG pCO2 50 H (35-45) mmHg ABG pO2 46 L (83-108) mmHg ABG O2 Saturation 75.0 L (94-97) % Chloride (98-107) mmol/L Carbon Dioxide (22-30) mmol/L BUN (9-20) mg/dL Creatinine (0.66-1.25) mg/dL Glucose (74-99) mg/dL POC Glucose (mg/dL) 135 H (75-99) mg/dL Calcium (8.4-10.2) mg/dL Ionized Calcium Lance (4.5-5.3) mg/dL Phosphorus (2.5-4.5) mg/dL Total Bilirubin (0.2-1.3) mg/dL Alkaline Phosphatase (38-126) U/L Total Protein (6.3-8.2) g/dL Crossmatch 07/29/16 07/29/16 07/29/16 Range/Units 17:20 17:20 17:21 WBC (3.8-10.6) k/uL RBC (4.30-5.90) m/uL Hgb (13.0-17.5) gm/dL Hct (39.0-53.0) % MCV (80.0-100.0) fL MCHC (31.0-37.0) g/dL RDW (11.5-15.5) % Plt Count (150-450) k/uL Neutrophils # (1.3-7.7) k/uL Neutrophils # (Manual) (1.3-7.7) k/uL Lymphocytes # (1.0-4.8) k/uL PT 12.3 H (9.0-12.0) sec APTT (22.0-30.0) sec ABG pH (7.35-7.45) ABG pCO2 (35-45) mmHg ABG pO2 141 H (83-108) mmHg ABG O2 Saturation 99.0 H (94-97) % Chloride (98-107) mmol/L Carbon Dioxide (22-30) mmol/L BUN 57 H (9-20) mg/dL Creatinine 5.85 H* (0.66-1.25) mg/dL Glucose 125 H (74-99) mg/dL POC Glucose (mg/dL) (75-99) mg/dL Calcium 8.0 L (8.4-10.2) mg/dL Ionized Calcium Lance 4.0 L (4.5-5.3) mg/dL Phosphorus (2.5-4.5) mg/dL Total Bilirubin 2.7 H (0.2-1.3) mg/dL Alkaline Phosphatase (38-126) U/L Total Protein 6.1 L (6.3-8.2) g/dL Crossmatch 07/29/16 07/29/16 07/29/16 Range/Units 17:24 18:08 20:05 WBC (3.8-10.6) k/uL RBC (4.30-5.90) m/uL Hgb (13.0-17.5) gm/dL Hct (39.0-53.0) % MCV (80.0-100.0) fL MCHC (31.0-37.0) g/dL RDW (11.5-15.5) % Plt Count (150-450) k/uL Neutrophils # (1.3-7.7) k/uL Neutrophils # (Manual) (1.3-7.7) k/uL Lymphocytes # (1.0-4.8) k/uL PT (9.0-12.0) sec APTT (22.0-30.0) sec ABG pH (7.35-7.45) ABG pCO2 (35-45) mmHg ABG pO2 (83-108) mmHg ABG O2 Saturation (94-97) % Chloride (98-107) mmol/L Carbon Dioxide (22-30) mmol/L BUN (9-20) mg/dL Creatinine (0.66-1.25) mg/dL Glucose (74-99) mg/dL POC Glucose (mg/dL) 141 H 139 H 140 H (75-99) mg/dL Calcium (8.4-10.2) mg/dL Ionized Calcium Lance (4.5-5.3) mg/dL Phosphorus (2.5-4.5) mg/dL Total Bilirubin (0.2-1.3) mg/dL Alkaline Phosphatase (38-126) U/L Total Protein (6.3-8.2) g/dL Crossmatch 07/29/16 07/29/16 07/29/16 Range/Units 21:00 22:00 22:00 WBC (3.8-10.6) k/uL RBC 2.09 L (4.30-5.90) m/uL Hgb 6.5 L* (13.0-17.5) gm/dL Hct 19.4 L* (39.0-53.0) % MCV (80.0-100.0) fL MCHC (31.0-37.0) g/dL RDW 20.4 H (11.5-15.5) % Plt Count 99 L (150-450) k/uL Neutrophils # 8.4 H (1.3-7.7) k/uL Neutrophils # (Manual) (1.3-7.7) k/uL Lymphocytes # 0.2 L (1.0-4.8) k/uL PT (9.0-12.0) sec APTT (22.0-30.0) sec ABG pH (7.35-7.45) ABG pCO2 (35-45) mmHg ABG pO2 (83-108) mmHg ABG O2 Saturation (94-97) % Chloride (98-107) mmol/L Carbon Dioxide (22-30) mmol/L BUN 59 H (9-20) mg/dL Creatinine 6.08 H* (0.66-1.25) mg/dL Glucose 120 H (74-99) mg/dL POC Glucose (mg/dL) 137 H (75-99) mg/dL Calcium 7.9 L (8.4-10.2) mg/dL Ionized Calcium Lance 4.2 L (4.5-5.3) mg/dL Phosphorus 4.6 H (2.5-4.5) mg/dL Total Bilirubin (0.2-1.3) mg/dL Alkaline Phosphatase (38-126) U/L Total Protein (6.3-8.2) g/dL Crossmatch 07/29/16 07/29/16 07/29/16 Range/Units 22:06 22:37 23:06 WBC (3.8-10.6) k/uL RBC 2.02 L (4.30-5.90) m/uL Hgb 6.5 L* (13.0-17.5) gm/dL Hct 18.7 L* (39.0-53.0) % MCV (80.0-100.0) fL MCHC (31.0-37.0) g/dL RDW 20.1 H (11.5-15.5) % Plt Count 86 L (150-450) k/uL Neutrophils # (1.3-7.7) k/uL Neutrophils # (Manual) (1.3-7.7) k/uL Lymphocytes # (1.0-4.8) k/uL PT (9.0-12.0) sec APTT (22.0-30.0) sec ABG pH (7.35-7.45) ABG pCO2 (35-45) mmHg ABG pO2 (83-108) mmHg ABG O2 Saturation (94-97) % Chloride (98-107) mmol/L Carbon Dioxide (22-30) mmol/L BUN (9-20) mg/dL Creatinine (0.66-1.25) mg/dL Glucose (74-99) mg/dL POC Glucose (mg/dL) 133 H 126 H (75-99) mg/dL Calcium (8.4-10.2) mg/dL Ionized Calcium Lnace (4.5-5.3) mg/dL Phosphorus (2.5-4.5) mg/dL Total Bilirubin (0.2-1.3) mg/dL Alkaline Phosphatase (38-126) U/L Total Protein (6.3-8.2) g/dL Crossmatch 07/29/16 07/30/16 07/30/16 Range/Units 23:56 00:56 01:59 WBC (3.8-10.6) k/uL RBC (4.30-5.90) m/uL Hgb (13.0-17.5) gm/dL Hct (39.0-53.0) % MCV (80.0-100.0) fL MCHC (31.0-37.0) g/dL RDW (11.5-15.5) % Plt Count (150-450) k/uL Neutrophils # (1.3-7.7) k/uL Neutrophils # (Manual) (1.3-7.7) k/uL Lymphocytes # (1.0-4.8) k/uL PT (9.0-12.0) sec APTT (22.0-30.0) sec ABG pH (7.35-7.45) ABG pCO2 (35-45) mmHg ABG pO2 (83-108) mmHg ABG O2 Saturation (94-97) % Chloride (98-107) mmol/L Carbon Dioxide (22-30) mmol/L BUN (9-20) mg/dL Creatinine (0.66-1.25) mg/dL Glucose (74-99) mg/dL POC Glucose (mg/dL) 125 H 126 H 128 H (75-99) mg/dL Calcium (8.4-10.2) mg/dL Ionized Calcium Lance (4.5-5.3) mg/dL Phosphorus (2.5-4.5) mg/dL Total Bilirubin (0.2-1.3) mg/dL Alkaline Phosphatase (38-126) U/L Total Protein (6.3-8.2) g/dL Crossmatch 07/30/16 07/30/16 07/30/16 Range/Units 03:04 04:14 05:19 WBC (3.8-10.6) k/uL RBC (4.30-5.90) m/uL Hgb (13.0-17.5) gm/dL Hct (39.0-53.0) % MCV (80.0-100.0) fL MCHC (31.0-37.0) g/dL RDW (11.5-15.5) % Plt Count (150-450) k/uL Neutrophils # (1.3-7.7) k/uL Neutrophils # (Manual) (1.3-7.7) k/uL Lymphocytes # (1.0-4.8) k/uL PT (9.0-12.0) sec APTT (22.0-30.0) sec ABG pH (7.35-7.45) ABG pCO2 (35-45) mmHg ABG pO2 (83-108) mmHg ABG O2 Saturation (94-97) % Chloride (98-107) mmol/L Carbon Dioxide (22-30) mmol/L BUN (9-20) mg/dL Creatinine (0.66-1.25) mg/dL Glucose (74-99) mg/dL POC Glucose (mg/dL) 131 H 130 H 129 H (75-99) mg/dL Calcium (8.4-10.2) mg/dL Ionized Calcium Lance (4.5-5.3) mg/dL Phosphorus (2.5-4.5) mg/dL Total Bilirubin (0.2-1.3) mg/dL Alkaline Phosphatase (38-126) U/L Total Protein (6.3-8.2) g/dL Crossmatch 07/30/16 07/30/16 07/30/16 Range/Units 06:00 06:00 06:02 WBC (3.8-10.6) k/uL RBC 2.38 L (4.30-5.90) m/uL Hgb 7.6 L (13.0-17.5) gm/dL Hct 21.7 L (39.0-53.0) % MCV (80.0-100.0) fL MCHC (31.0-37.0) g/dL RDW 20.2 H (11.5-15.5) % Plt Count 95 L (150-450) k/uL Neutrophils # 8.6 H (1.3-7.7) k/uL Neutrophils # (Manual) (1.3-7.7) k/uL Lymphocytes # 0.5 L (1.0-4.8) k/uL PT (9.0-12.0) sec APTT (22.0-30.0) sec ABG pH (7.35-7.45) ABG pCO2 (35-45) mmHg ABG pO2 (83-108) mmHg ABG O2 Saturation (94-97) % Chloride (98-107) mmol/L Carbon Dioxide (22-30) mmol/L BUN 57 H (9-20) mg/dL Creatinine 6.50 H* (0.66-1.25) mg/dL Glucose 115 H (74-99) mg/dL POC Glucose (mg/dL) 131 H (75-99) mg/dL Calcium 8.1 L (8.4-10.2) mg/dL Ionized Calcium Lance 4.3 L (4.5-5.3) mg/dL Phosphorus (2.5-4.5) mg/dL Total Bilirubin (0.2-1.3) mg/dL Alkaline Phosphatase (38-126) U/L Total Protein 5.4 L (6.3-8.2) g/dL Crossmatch 07/30/16 07/30/16 07/30/16 Range/Units 07:08 07:29 08:07 WBC (3.8-10.6) k/uL RBC (4.30-5.90) m/uL Hgb (13.0-17.5) gm/dL Hct (39.0-53.0) % MCV (80.0-100.0) fL MCHC (31.0-37.0) g/dL RDW (11.5-15.5) % Plt Count (150-450) k/uL Neutrophils # (1.3-7.7) k/uL Neutrophils # (Manual) (1.3-7.7) k/uL Lymphocytes # (1.0-4.8) k/uL PT (9.0-12.0) sec APTT (22.0-30.0) sec ABG pH (7.35-7.45) ABG pCO2 (35-45) mmHg ABG pO2 69 L (83-108) mmHg ABG O2 Saturation 93.0 L (94-97) % Chloride (98-107) mmol/L Carbon Dioxide (22-30) mmol/L BUN (9-20) mg/dL Creatinine (0.66-1.25) mg/dL Glucose (74-99) mg/dL POC Glucose (mg/dL) 122 H 124 H (75-99) mg/dL Calcium (8.4-10.2) mg/dL Ionized Calcium Lance (4.5-5.3) mg/dL Phosphorus (2.5-4.5) mg/dL Total Bilirubin (0.2-1.3) mg/dL Alkaline Phosphatase (38-126) U/L Total Protein (6.3-8.2) g/dL Crossmatch - Imaging and Cardiology Chest x-ray: image reviewed Assessment and Plan (1) Non-STEMI (non-ST elevated myocardial infarction) Status: Acute (2) Hypertension Status: Acute (3) Hyperlipidemia Status: Acute (4) End-stage renal disease on hemodialysis Status: Acute Plan: 1. Decrease aspirin to 81 mg daily. Continue Lipitor. Hold Plavix for now. 2. Dialysis to be done today per nephrology. 3. Will get chest x-ray after dialysis to reexamine left lung. 4. Vent management per pulmonology. Wean O2 as tolerated. 5. Will stop nitro drip. Wean off Cleviprex as tolerated. 6. Will continue to monitor labs, chest x-rays. 7. GI/DVT prophylaxis. 8. Will reapply hard boot to left lower extremity to prevent deterioration of permanent. 9. More recommendations as patient progresses. Time with Patient: Greater than 30
--- NOTE | 2016-07-30 09:31 | XR ---
EXAMINATION TYPE: XR chest 1V portable DATE OF EXAM: 07/30/2016 6:25 AM COMPARISON: Prior chest x-ray July 2016 HISTORY: Postop cardiac surgery, intubated TECHNIQUE: Single frontal view of the chest is obtained. FINDINGS: Endotracheal tube, NG tube, right jugular central venous catheter, mediastinal drains, lef t chest tube are present and are overlying appropriate positions. No evident pneumothorax. Basilar de nsity is again noted left greater than right, there is prominence of the interstitium and central vas cularity. There are overlying cardiac leads. Heart is enlarged. IMPRESSION: Probable basilar atelectasis versus edema and associated effusion. Correlate for volume o verload, congestive heart failure. Additional follow-up is recommended.
[2016-07-30 10:05] LABS: Glucose,Whole Blood 118 mg/dL (75-99)
[2016-07-30] MEDS: CLEVIDIPINE BUTYRATE 25 MG in EMPTY BAG 1 BAG IV SCH ×3 (10:25→23:25)
--- NOTE | 2016-07-30 10:26 | PN ---
Mr. Xie is seen for followup for end-stage renal disease. He had his double coronary artery bypass surgery done yesterday. Currently patient is on the vent. His FiO2 is at about 60%. The left lung shows opacification and there is consideration for possible bronchoscopy. Patient has received multiple units of packed RBCs and FFPs. He is not on any pressor agents. In fact blood pressure was on the higher side. Patient is maintained on clevidipine. On examination, he remains on the vent, sedated. Blood pressure 123/48, heart rate 81 per minute. He is afebrile. EXAMINATION OF THE HEART: S1 and S2. EXAMINATION OF THE LUNGS: Bilateral breath sounds are heard. Decreased breath sounds in bases. ABDOMEN: Soft. Examination of the lower extremities shows bilateral extremities to be wrapped. There is a drain noted in his right lower extremity. Lungs sounds are particularly decreased on the left side. Labs show potassium of 4.9 mEq/L. Hemoglobin was 7.6 this morning. ASSESSMENT: 1. End-stage renal disease on hemodialysis on a Friday, , Friday schedule. 2. Status post coronary artery bypass surgery. 3. Ventilator-dependent respiratory failure. 4. Opacification of the left lung with possible bleeding, being considered for bronchoscopy. 5. Hypertension, expect further improvement with dialysis and ultrafiltration. We will try for about 1.5 L today. PLAN: Hemodialysis today with goal UF of about 1.5 L as tolerated.
[2016-07-30 11:18] LABS: Glucose,Whole Blood 104 mg/dL (75-99)
[2016-07-30 12:14] LABS: Glucose,Whole Blood 102 mg/dL (75-99)
--- NOTE | 2016-07-30 12:47 | P.PN ---
Subjective Principal diagnosis: Status post CABG postoperative day #1 This is a 80-year-old white male with history of multiple medical problems including hypertension, previous ischemic heart disease and mild aortic stenosis. End-stage renal disease on hemodialysis. History of rheumatoid arthritis, patient was admitted recently with chest pain, cardiac enzymes were suggestive of non-ST elevation myocardial infarction, cardiac cath showed significant coronary artery disease with critical lesion in the proximal LAD also the proximal RCA. Today, the patient underwent myocardial revascularization by Dr. Alcaraz, and he was placed on mechanical ventilation postoperatively, seen in the ICU for consultation and postoperative ventilator management. Presently, the patient is on 100% FiO2, assist control rate of 12, PEEP of 5, and tidal volume of 500. Initial ABG showed a pO2 of 364, pCO2 of 42 pH of 7.32. However shortly after patient was placed on a 50% FiO2, and he was noted to have significant drop in his saturation based on pulse oximetry. Repeat ABG showed worsening oxygenation with a pO2 of 46 pCO2 of 50 and pH of 7.28. Hence placed back on 100%, increased his rate up to 16, and increased the PEEP to 10. Follow-up chest x-ray showed worsening pulmonary edema, remind you patient is a hemodialysis patient. Follow-up ABG is pending. Patient is presently fully sedated, and in no distress. Reevaluated today on 07/30/2016, patient is status post off pump double coronary artery bypass grafting using L REJI to LAD, and reverse saphenous vein graft from the aorta to the posterior descending artery.patient remains on mechanical ventilation, chest x-ray is showing worsening picture of pulmonary edema, however the possibility of bleeding into the left midlung area and left lower lobe is not entirely ruled out there seems to be a worsening consolidation in the area of the left midlung and left lower lobe, hence may consider bronchoscopy on this patient. In the meantime, patient is being ultrafiltrate it today, and hopefully that will make a significant improvement on the chest x- ray appearance, and may help oxygenation.labs were reviewed, WBC count is 9.8 hemoglobin is 7.6 it was 6.5 earlier today,patient received a total of 5 units of packed RBCs since admission, 2 units of fresh frozen plasma, and 3 units of platelets. Objective - Vital Signs Vital signs: Vital Signs Temp 98.4 F 07/30/16 03:32 Pulse 77 07/30/16 11:00 Resp 20 07/30/16 11:00 BP 127/54 07/30/16 03:32 Pulse Ox 91 L 07/30/16 11:00 Intake & Output 07/29/16 07/30/16 07/30/16 18:59 06:59 18:59 Intake Total 4356.283 2050.522 609.718 Output Total 1254 897 200 Balance 3102.283 1153.522 409.718 Weight 87.6 kg 87.6 kg Intake: IV 403 808 384 CO/CI 100 30 Lactated Ringers 1,000 ml 300 600 300 @ 20 mls/hr IV .Q24H [facility] Rx#:[id number] Pressure Bag 108 54 Intake, IV Titration 95.283 572.522 225.718 Amount Calcium Gluconate 1,000 100 mg In Sodium Chloride 0.9 % 100 ml @ 100 mls/hr IVPB ONCE ONE Rx#: [id number] Calcium Gluconate 2,000 100 mg In Sodium Chloride 0.9 % 100 ml @ 100 mls/hr IVPB ONCE PRN Rx#: [id number] Clevidipine Butyrate 25 20.833 25.966 12.234 mg In Empty Bag 1 bag @ 1 MG/HR 2 mls/hr IV .Q24H [facility] Rx#:[id number] Insulin Regular 100 unit 3.242 19.484 In Sodium Chloride 0.9% 100 ml @ Per Protocol IV .Q0M [facility] Rx#:[id number] Nitroglycerin-D5w Pmx 50 24.45 193.5 44.00 mg In Dextrose/Water 1 250ml.bag @ 5 MCG/MIN 1.5 mls/hr IV .Q24H [facility] Rx#: [id number] Propofol 500 mg In Empty 50.000 249.814 50 Bag 1 bag @ Titrate IV . Q0M [facility] Rx#:[id number] Blood Product 3858 620 Ffp 24 Cpd Unit 327 [id number] Ffp 24 Cpd Unit 317 [id number] Platelet Pheresis Acda3 201 Unit [id number] Rc As-1 Unit 310 [id number] Rc As-1 Unit 310 [id number] Rc As-1 Unit 310 [id number] Rc As-1 Unit 310 [id number] Rc Pheresis 2 As3 Unit 310 [id number] Other 50 Rc Pheresis 2 As3 Unit 50 [id number] Output: Chest Tube Drainage 410 572 140 Chest Tube Lateral Chest 130 272 80 Chest Tube Mediastinal 280 300 60 Drainage 35 35 Right Knee 35 35 Urine 209 290 60 Estimated Blood Loss 600 Other: Voiding Method Indwelling Catheter Indwelling Catheter Indwelling Catheter ABP, PAP, CO, CI - Last Documented Arterial Blood Pressure 121/47 Pulmonary Artery Pressure 34/18 Cardiac Output 5.4 Cardiac Index 2.8 - Exam Physical Exam revealed a 80 year-old sedated, intubated, on mechanical ventilation, in no distress. Endotracheal tube is intact. HEENT:[Neck is supple.] [No neck masses.] [No thyromegaly.] [No JVD.] Chest: [Clear throughout, crackles and rhonchi at the bases.] Cardiac Exam: [Normal S1 and S2, no S3 gallop, no murmur. The pericardial rub] Abdomen: [Soft, nontender, no megaly, no rebound, no guarding, normal bowel sounds.] Extremities: [No clubbing, plus bipedal edema, no cyanosis.] Neurological Exam: [Not be assessed, patient is sedated on mechanical ventilation. - Labs CBC & Chem 7: 07/30/16 06:00 07/30/16 06:00 Labs: Abnormal Lab Results - Last 24 Hours (Table) 07/28/16 07/29/16 07/29/16 Range/Units 06:26 12:36 12:57 WBC (3.8-10.6) k/uL RBC (4.30-5.90) m/uL Hgb (13.0-17.5) gm/dL Hct (39.0-53.0) % RDW (11.5-15.5) % Plt Count (150-450) k/uL Neutrophils # (1.3-7.7) k/uL Neutrophils # (Manual) (1.3-7.7) k/uL Lymphocytes # (1.0-4.8) k/uL PT (9.0-12.0) sec APTT (22.0-30.0) sec ABG pH (7.35-7.45) ABG pCO2 (35-45) mmHg ABG pO2 (83-108) mmHg ABG O2 Saturation (94-97) % Chloride (98-107) mmol/L Carbon Dioxide (22-30) mmol/L BUN (9-20) mg/dL Creatinine (0.66-1.25) mg/dL Glucose (74-99) mg/dL POC Glucose (mg/dL) 183 H 158 H (75-99) mg/dL Calcium (8.4-10.2) mg/dL Ionized Calcium Lance (4.5-5.3) mg/dL Phosphorus (2.5-4.5) mg/dL Total Bilirubin (0.2-1.3) mg/dL Alkaline Phosphatase (38-126) U/L Total Protein (6.3-8.2) g/dL Crossmatch See Detail 07/29/16 07/29/16 07/29/16 Range/Units 13:20 14:10 14:10 WBC 14.3 H (3.8-10.6) k/uL RBC 2.39 L (4.30-5.90) m/uL Hgb 7.4 L D (13.0-17.5) gm/dL Hct 23.1 L (39.0-53.0) % RDW 19.5 H (11.5-15.5) % Plt Count 91 L (150-450) k/uL Neutrophils # (1.3-7.7) k/uL Neutrophils # (Manual) 12.2 H (1.3-7.7) k/uL Lymphocytes # (1.0-4.8) k/uL PT (9.0-12.0) sec APTT (22.0-30.0) sec ABG pH (7.35-7.45) ABG pCO2 (35-45) mmHg ABG pO2 (83-108) mmHg ABG O2 Saturation (94-97) % Chloride 108 H (98-107) mmol/L Carbon Dioxide 20 L (22-30) mmol/L BUN 54 H (9-20) mg/dL Creatinine 5.76 H* (0.66-1.25) mg/dL Glucose 126 H (74-99) mg/dL POC Glucose (mg/dL) 155 H (75-99) mg/dL Calcium 6.8 L (8.4-10.2) mg/dL Ionized Calcium Lance 3.9 L (4.5-5.3) mg/dL Phosphorus (2.5-4.5) mg/dL Total Bilirubin (0.2-1.3) mg/dL Alkaline Phosphatase 34 L (38-126) U/L Total Protein 5.6 L (6.3-8.2) g/dL Crossmatch 07/29/16 07/29/16 07/29/16 Range/Units 14:10 14:15 14:35 WBC (3.8-10.6) k/uL RBC (4.30-5.90) m/uL Hgb (13.0-17.5) gm/dL Hct (39.0-53.0) % RDW (11.5-15.5) % Plt Count (150-450) k/uL Neutrophils # (1.3-7.7) k/uL Neutrophils # (Manual) (1.3-7.7) k/uL Lymphocytes # (1.0-4.8) k/uL PT 15.4 H (9.0-12.0) sec APTT 39.9 H (22.0-30.0) sec ABG pH 7.32 L (7.35-7.45) ABG pCO2 (35-45) mmHg ABG pO2 364 H (83-108) mmHg ABG O2 Saturation 100.0 H (94-97) % Chloride (98-107) mmol/L Carbon Dioxide (22-30) mmol/L BUN (9-20) mg/dL Creatinine (0.66-1.25) mg/dL Glucose (74-99) mg/dL POC Glucose (mg/dL) 141 H (75-99) mg/dL Calcium (8.4-10.2) mg/dL Ionized Calcium Lance (4.5-5.3) mg/dL Phosphorus (2.5-4.5) mg/dL Total Bilirubin (0.2-1.3) mg/dL Alkaline Phosphatase (38-126) U/L Total Protein (6.3-8.2) g/dL Crossmatch 07/29/16 07/29/16 07/29/16 Range/Units 14:53 15:51 15:56 WBC (3.8-10.6) k/uL RBC (4.30-5.90) m/uL Hgb (13.0-17.5) gm/dL Hct (39.0-53.0) % RDW (11.5-15.5) % Plt Count (150-450) k/uL Neutrophils # (1.3-7.7) k/uL Neutrophils # (Manual) (1.3-7.7) k/uL Lymphocytes # (1.0-4.8) k/uL PT (9.0-12.0) sec APTT (22.0-30.0) sec ABG pH 7.28 L (7.35-7.45) ABG pCO2 50 H (35-45) mmHg ABG pO2 46 L (83-108) mmHg ABG O2 Saturation 75.0 L (94-97) % Chloride (98-107) mmol/L Carbon Dioxide (22-30) mmol/L BUN (9-20) mg/dL Creatinine (0.66-1.25) mg/dL Glucose (74-99) mg/dL POC Glucose (mg/dL) 132 H 135 H (75-99) mg/dL Calcium (8.4-10.2) mg/dL Ionized Calcium Lance (4.5-5.3) mg/dL Phosphorus (2.5-4.5) mg/dL Total Bilirubin (0.2-1.3) mg/dL Alkaline Phosphatase (38-126) U/L Total Protein (6.3-8.2) g/dL Crossmatch 07/29/16 07/29/16 07/29/16 Range/Units 17:20 17:20 17:20 WBC 10.8 H (3.8-10.6) k/uL RBC 2.23 L (4.30-5.90) m/uL Hgb 7.3 L (13.0-17.5) gm/dL Hct 20.7 L (39.0-53.0) % RDW 20.0 H (11.5-15.5) % Plt Count 87 L (150-450) k/uL Neutrophils # 9.0 H (1.3-7.7) k/uL Neutrophils # (Manual) (1.3-7.7) k/uL Lymphocytes # 0.7 L (1.0-4.8) k/uL PT 12.3 H (9.0-12.0) sec APTT (22.0-30.0) sec ABG pH (7.35-7.45) ABG pCO2 (35-45) mmHg ABG pO2 (83-108) mmHg ABG O2 Saturation (94-97) % Chloride (98-107) mmol/L Carbon Dioxide (22-30) mmol/L BUN 57 H (9-20) mg/dL Creatinine 5.85 H* (0.66-1.25) mg/dL Glucose 125 H (74-99) mg/dL POC Glucose (mg/dL) (75-99) mg/dL Calcium 8.0 L (8.4-10.2) mg/dL Ionized Calcium Lance 4.0 L (4.5-5.3) mg/dL Phosphorus (2.5-4.5) mg/dL Total Bilirubin 2.7 H (0.2-1.3) mg/dL Alkaline Phosphatase (38-126) U/L Total Protein 6.1 L (6.3-8.2) g/dL Crossmatch 07/29/16 07/29/16 07/29/16 Range/Units 17:21 17:24 18:08 WBC (3.8-10.6) k/uL RBC (4.30-5.90) m/uL Hgb (13.0-17.5) gm/dL Hct (39.0-53.0) % RDW (11.5-15.5) % Plt Count (150-450) k/uL Neutrophils # (1.3-7.7) k/uL Neutrophils # (Manual) (1.3-7.7) k/uL Lymphocytes # (1.0-4.8) k/uL PT (9.0-12.0) sec APTT (22.0-30.0) sec ABG pH (7.35-7.45) ABG pCO2 (35-45) mmHg ABG pO2 141 H (83-108) mmHg ABG O2 Saturation 99.0 H (94-97) % Chloride (98-107) mmol/L Carbon Dioxide (22-30) mmol/L BUN (9-20) mg/dL Creatinine (0.66-1.25) mg/dL Glucose (74-99) mg/dL POC Glucose (mg/dL) 141 H 139 H (75-99) mg/dL Calcium (8.4-10.2) mg/dL Ionized Calcium Lance (4.5-5.3) mg/dL Phosphorus (2.5-4.5) mg/dL Total Bilirubin (0.2-1.3) mg/dL Alkaline Phosphatase (38-126) U/L Total Protein (6.3-8.2) g/dL Crossmatch 07/29/16 07/29/16 07/29/16 Range/Units 20:05 21:00 22:00 WBC (3.8-10.6) k/uL RBC (4.30-5.90) m/uL Hgb (13.0-17.5) gm/dL Hct (39.0-53.0) % RDW (11.5-15.5) % Plt Count (150-450) k/uL Neutrophils # (1.3-7.7) k/uL Neutrophils # (Manual) (1.3-7.7) k/uL Lymphocytes # (1.0-4.8) k/uL PT (9.0-12.0) sec APTT (22.0-30.0) sec ABG pH (7.35-7.45) ABG pCO2 (35-45) mmHg ABG pO2 (83-108) mmHg ABG O2 Saturation (94-97) % Chloride (98-107) mmol/L Carbon Dioxide (22-30) mmol/L BUN 59 H (9-20) mg/dL Creatinine 6.08 H* (0.66-1.25) mg/dL Glucose 120 H (74-99) mg/dL POC Glucose (mg/dL) 140 H 137 H (75-99) mg/dL Calcium 7.9 L (8.4-10.2) mg/dL Ionized Calcium Lance 4.2 L (4.5-5.3) mg/dL Phosphorus 4.6 H (2.5-4.5) mg/dL Total Bilirubin (0.2-1.3) mg/dL Alkaline Phosphatase (38-126) U/L Total Protein (6.3-8.2) g/dL Crossmatch 07/29/16 07/29/16 07/29/16 Range/Units 22:00 22:06 22:37 WBC (3.8-10.6) k/uL RBC 2.09 L 2.02 L (4.30-5.90) m/uL Hgb 6.5 L* 6.5 L* (13.0-17.5) gm/dL Hct 19.4 L* 18.7 L* (39.0-53.0) % RDW 20.4 H 20.1 H (11.5-15.5) % Plt Count 99 L 86 L (150-450) k/uL Neutrophils # 8.4 H (1.3-7.7) k/uL Neutrophils # (Manual) (1.3-7.7) k/uL Lymphocytes # 0.2 L (1.0-4.8) k/uL PT (9.0-12.0) sec APTT (22.0-30.0) sec ABG pH (7.35-7.45) ABG pCO2 (35-45) mmHg ABG pO2 (83-108) mmHg ABG O2 Saturation (94-97) % Chloride (98-107) mmol/L Carbon Dioxide (22-30) mmol/L BUN (9-20) mg/dL Creatinine (0.66-1.25) mg/dL Glucose (74-99) mg/dL POC Glucose (mg/dL) 133 H (75-99) mg/dL Calcium (8.4-10.2) mg/dL Ionized Calcium Lance (4.5-5.3) mg/dL Phosphorus (2.5-4.5) mg/dL Total Bilirubin (0.2-1.3) mg/dL Alkaline Phosphatase (38-126) U/L Total Protein (6.3-8.2) g/dL Crossmatch 07/29/16 07/29/16 07/30/16 Range/Units 23:06 23:56 00:56 WBC (3.8-10.6) k/uL RBC (4.30-5.90) m/uL Hgb (13.0-17.5) gm/dL Hct (39.0-53.0) % RDW (11.5-15.5) % Plt Count (150-450) k/uL Neutrophils # (1.3-7.7) k/uL Neutrophils # (Manual) (1.3-7.7) k/uL Lymphocytes # (1.0-4.8) k/uL PT (9.0-12.0) sec APTT (22.0-30.0) sec ABG pH (7.35-7.45) ABG pCO2 (35-45) mmHg ABG pO2 (83-108) mmHg ABG O2 Saturation (94-97) % Chloride (98-107) mmol/L Carbon Dioxide (22-30) mmol/L BUN (9-20) mg/dL Creatinine (0.66-1.25) mg/dL Glucose (74-99) mg/dL POC Glucose (mg/dL) 126 H 125 H 126 H (75-99) mg/dL Calcium (8.4-10.2) mg/dL Ionized Calcium Lance (4.5-5.3) mg/dL Phosphorus (2.5-4.5) mg/dL Total Bilirubin (0.2-1.3) mg/dL Alkaline Phosphatase (38-126) U/L Total Protein (6.3-8.2) g/dL Crossmatch 07/30/16 07/30/16 07/30/16 Range/Units 01:59 03:04 04:14 WBC (3.8-10.6) k/uL RBC (4.30-5.90) m/uL Hgb (13.0-17.5) gm/dL Hct (39.0-53.0) % RDW (11.5-15.5) % Plt Count (150-450) k/uL Neutrophils # (1.3-7.7) k/uL Neutrophils # (Manual) (1.3-7.7) k/uL Lymphocytes # (1.0-4.8) k/uL PT (9.0-12.0) sec APTT (22.0-30.0) sec ABG pH (7.35-7.45) ABG pCO2 (35-45) mmHg ABG pO2 (83-108) mmHg ABG O2 Saturation (94-97) % Chloride (98-107) mmol/L Carbon Dioxide (22-30) mmol/L BUN (9-20) mg/dL Creatinine (0.66-1.25) mg/dL Glucose (74-99) mg/dL POC Glucose (mg/dL) 128 H 131 H 130 H (75-99) mg/dL Calcium (8.4-10.2) mg/dL Ionized Calcium Lance (4.5-5.3) mg/dL Phosphorus (2.5-4.5) mg/dL Total Bilirubin (0.2-1.3) mg/dL Alkaline Phosphatase (38-126) U/L Total Protein (6.3-8.2) g/dL Crossmatch 07/30/16 07/30/16 07/30/16 Range/Units 05:19 06:00 06:00 WBC (3.8-10.6) k/uL RBC 2.38 L (4.30-5.90) m/uL Hgb 7.6 L (13.0-17.5) gm/dL Hct 21.7 L (39.0-53.0) % RDW 20.2 H (11.5-15.5) % Plt Count 95 L (150-450) k/uL Neutrophils # 8.6 H (1.3-7.7) k/uL Neutrophils # (Manual) (1.3-7.7) k/uL Lymphocytes # 0.5 L (1.0-4.8) k/uL PT (9.0-12.0) sec APTT (22.0-30.0) sec ABG pH (7.35-7.45) ABG pCO2 (35-45) mmHg ABG pO2 (83-108) mmHg ABG O2 Saturation (94-97) % Chloride (98-107) mmol/L Carbon Dioxide (22-30) mmol/L BUN 57 H (9-20) mg/dL Creatinine 6.50 H* (0.66-1.25) mg/dL Glucose 115 H (74-99) mg/dL POC Glucose (mg/dL) 129 H (75-99) mg/dL Calcium 8.1 L (8.4-10.2) mg/dL Ionized Calcium Lance 4.3 L (4.5-5.3) mg/dL Phosphorus (2.5-4.5) mg/dL Total Bilirubin (0.2-1.3) mg/dL Alkaline Phosphatase (38-126) U/L Total Protein 5.4 L (6.3-8.2) g/dL Crossmatch 07/30/16 07/30/16 07/30/16 Range/Units 06:02 07:08 07:29 WBC (3.8-10.6) k/uL RBC (4.30-5.90) m/uL Hgb (13.0-17.5) gm/dL Hct (39.0-53.0) % RDW (11.5-15.5) % Plt Count (150-450) k/uL Neutrophils # (1.3-7.7) k/uL Neutrophils # (Manual) (1.3-7.7) k/uL Lymphocytes # (1.0-4.8) k/uL PT (9.0-12.0) sec APTT (22.0-30.0) sec ABG pH (7.35-7.45) ABG pCO2 (35-45) mmHg ABG pO2 69 L (83-108) mmHg ABG O2 Saturation 93.0 L (94-97) % Chloride (98-107) mmol/L Carbon Dioxide (22-30) mmol/L BUN (9-20) mg/dL Creatinine (0.66-1.25) mg/dL Glucose (74-99) mg/dL POC Glucose (mg/dL) 131 H 122 H (75-99) mg/dL Calcium (8.4-10.2) mg/dL Ionized Calcium Lance (4.5-5.3) mg/dL Phosphorus (2.5-4.5) mg/dL Total Bilirubin (0.2-1.3) mg/dL Alkaline Phosphatase (38-126) U/L Total Protein (6.3-8.2) g/dL Crossmatch 07/30/16 07/30/16 07/30/16 Range/Units 08:07 09:08 10:00 WBC (3.8-10.6) k/uL RBC (4.30-5.90) m/uL Hgb (13.0-17.5) gm/dL Hct (39.0-53.0) % RDW (11.5-15.5) % Plt Count (150-450) k/uL Neutrophils # (1.3-7.7) k/uL Neutrophils # (Manual) (1.3-7.7) k/uL Lymphocytes # (1.0-4.8) k/uL PT (9.0-12.0) sec APTT (22.0-30.0) sec ABG pH (7.35-7.45) ABG pCO2 (35-45) mmHg ABG pO2 (83-108) mmHg ABG O2 Saturation (94-97) % Chloride (98-107) mmol/L Carbon Dioxide (22-30) mmol/L BUN (9-20) mg/dL Creatinine (0.66-1.25) mg/dL Glucose (74-99) mg/dL POC Glucose (mg/dL) 124 H 123 H 118 H (75-99) mg/dL Calcium (8.4-10.2) mg/dL Ionized Calcium Lance (4.5-5.3) mg/dL Phosphorus (2.5-4.5) mg/dL Total Bilirubin (0.2-1.3) mg/dL Alkaline Phosphatase (38-126) U/L Total Protein (6.3-8.2) g/dL Crossmatch 07/30/16 07/30/16 Range/Units 11:15 11:54 WBC (3.8-10.6) k/uL RBC (4.30-5.90) m/uL Hgb (13.0-17.5) gm/dL Hct (39.0-53.0) % RDW (11.5-15.5) % Plt Count (150-450) k/uL Neutrophils # (1.3-7.7) k/uL Neutrophils # (Manual) (1.3-7.7) k/uL Lymphocytes # (1.0-4.8) k/uL PT (9.0-12.0) sec APTT (22.0-30.0) sec ABG pH (7.35-7.45) ABG pCO2 (35-45) mmHg ABG pO2 (83-108) mmHg ABG O2 Saturation (94-97) % Chloride (98-107) mmol/L Carbon Dioxide (22-30) mmol/L BUN (9-20) mg/dL Creatinine (0.66-1.25) mg/dL Glucose (74-99) mg/dL POC Glucose (mg/dL) 104 H 102 H (75-99) mg/dL Calcium (8.4-10.2) mg/dL Ionized Calcium Lance (4.5-5.3) mg/dL Phosphorus (2.5-4.5) mg/dL Total Bilirubin (0.2-1.3) mg/dL Alkaline Phosphatase (38-126) U/L Total Protein (6.3-8.2) g/dL Crossmatch Assessment and Plan Plan: Impression: 1 status post CABG, on mechanical ventilation, postoperative day #1 2 acute pulmonary edema as noted on the chest x-ray, patient is a hemodialysis patient and his history of chronic renal disease. 3 history of mild aortic stenosis 4 history of mild LV dysfunction 5 history of chronic anemia 6 history of chronic renal failure on hemodialysis 7 history of hypertension 8 history of hyperlipidemia 9 history of right groin pseudoaneurysm following cardiac catheterization. 10 history of right-sided epistaxis felt to be related to previous a staphylococcal colonization, 11 history of rheumatoid arthritis Recommendation: Continue ventilatory support,patient is now on 50% FiO2, PEEP remains at 10, patient is receiving ultrafiltration/hemodialysis today, may consider bronchoscopy to evaluate the left midlung and the left lower lobe area. Time with Patient: Less than 30
[2016-07-30] MEDS ORDERED: BISACODYL 10 MG SUPP RECTAL PRN (13:07)
[2016-07-30] MEDS ORDERED: MAGNESIUM HYDROXIDE 2,400 MG/10 ML CUP PO PRN (13:07)
[2016-07-30] MEDS ORDERED: IPRATROPIUM-ALBUTEROL 3 ML NEB INHALATION PRN (13:08)
[2016-07-30 13:16] LABS: Glucose,Whole Blood 107 mg/dL (75-99)
--- NOTE | 2016-07-30 13:45 | XR ---
EXAMINATION TYPE: XR chest 1V portable DATE OF EXAM: 07/30/2016 1:15 PM COMPARISON: prior chest xray same date at earlier time HISTORY: hypoxemia TECHNIQUE: Single frontal view of the chest is obtained. FINDINGS: Interval decreased aeration at the left upper lobe. No other significant interval change. IMPRESSION: Atelectasis or effusion has progressed in the interval, correlate for possible mucus plu gging.
[2016-07-30 14:41] LABS: Glucose,Whole Blood 133 mg/dL (75-99)
[2016-07-30] MEDS: LACTATED RINGERS 1,000 ML IV SCH (14:54)
--- NOTE | 2016-07-30 15:04 | XR ---
EXAMINATION TYPE: XR chest 1V portable DATE OF EXAM: 07/30/2016 2:55 PM CLINICAL HISTORY: Post bronchoscopy. TECHNIQUE: Single AP portable upright view of the chest is obtained. COMPARISON: Chest x-ray from earlier today. FINDINGS: Surgical changes from left-sided partial pneumonectomy with left-sided volume loss and hil ar clips is redemonstrated. There is now completely opacified left lung. Left sided chest tube and 2 mediastinal drainage catheters are redemonstrated. There is persistent small right pleural effusion. Sternal wires are again seen. An endotracheal tube and orogastric tube are stable in appearance. Ther e is stable right internal jugular [place] catheter. IMPRESSION: Now completely opacified left lung worsened from prior exam suggesting postobstructive at electasis progression. Other findings stable.
[2016-07-30 15:08] LABS: Glucose,Whole Blood 132 mg/dL (75-99)
--- NOTE | 2016-07-30 15:19 | CDI ---
In responding to this query, please exercise your independent professional judgment. The [facility] Coding Staff and Clinical Documentation Specialists appreciate your assistance in clarifying documentation, maintaining compliance with coding guidelines, accurately documenting patients condition and capturing severity of illness. The fact that a question is asked does not imply that any particular answer is desired or expected. Communication forms are a method of clarifying documentation and are not made part of the Legal Health Record. Thank you in advance for your clarification. Last Revision, June 2015 [address] [place] [address] Documentation Clarification Form Date: 07/30/2016 3:09:00 PM From: Nida Salguero RN, CCDS Admit Date: 07/24/2016 7:33:00 PM Patient Name: Charlie Xie Visit Number: [id number] Dr. Lb Alcala CHF is documented in the H&P and Progress Notes . History/Risk Factors: CHF, CAD, NSTEMI, HTN, ESRD 07/25 H&P: "History of congestive heart failure." 07/28 Nephrology Progress Note: "Congestive heart failure improved with aggressive ultrafiltration on for dialysis this week." Clinical Indicators: VS/Pulse OX: Temp 98.7, hr 84, rr 16, b/p 136/73, spo2 96% RA Echocardiogram Results per cardiac cath report: "Echocardiogram was reported as showing ejection fraction of 45% and evidence of mild to moderate aortic stenosis." 07/25 Chest X Ray: bilateral pleural effusion w/o overt failure Treatment: CABG Ultrafiltration HD Lasix 80mg IVP x1 Consults: Cardiology, Pulmonary, Nephrology In your professional opinion, can you please clarify the acuity and type of CHF if known? Acute Chronic Acute on Chronic AND Systolic Diastolic Systolic and Diastolic Cor Pulmonale (Right Sided HF w/ Pulmonary HTN) Unable to determine Other, please specify If known, please specify if Heart Failure is due to: Hypertension Rheumatic Fever Please document in your progress notes and discharge summary in order to capture severity of illness and risk of mortality. Include clinical findings that support your diagnosis. FYI: Press F11 to launch patient chart. Place X here if this finding has no clinical significance, is not applicable or if you are not able to provide any additional documentation. FOREIGN
--- NOTE | 2016-07-30 15:30 | CDI ---
In responding to this query, please exercise your independent professional judgment. The [facility] Coding Staff and Clinical Documentation Specialists appreciate your assistance in clarifying documentation, maintaining compliance with coding guidelines, accurately documenting patients condition and capturing severity of illness. The fact that a question is asked does not imply that any particular answer is desired or expected. Communication forms are a method of clarifying documentation and are not made part of the Legal Health Record. Thank you in advance for your clarification. Last Revision, February 2015 [address] [facility] [place] [address] Documentation Clarification Form Date: 07/30/2016 3:20:00 PM From: Nida Salguero RN, CCDS Admit Date: 07/24/2016 7:33:00 PM Patient Name: Charlie Xie Visit Number: [id number] Dr. Elvie Alcaraz/Karis Stephens CNP A diagnosis of anemia lacks specificity to accurately reflect your patients severity of condition and clarification is needed. Patient history/risk factors: ESRD on HD, CAD, HTN Clinical Indicators: 07/29 Hemoglobin:@ 0612 Hgb 8.3 at 0905 dropped to 4.8, came up to 7.4 @ 1410, then dropped to 6.5 at 2200 07/29 Hematocrit: 26/16.2/ 23.1/19.4/18.7 Treatment: 5 units PRBC's transfused 2 units FFP transfused 1 unit platelets transfused In order to capture the severity of condition, please clarify the type of anemia and etiology if known: Acute blood loss anemia Acute on chronic blood loss anemia Chronic blood loss anemia Acute Post-operative blood loss anemia Iron deficiency anemia Hemolytic anemia Anemia of chronic kidney disease Unable to determine Other, please specify Please document in your progress notes and discharge summary in order to capture severity of illness and risk of mortality. Include clinical findings that support your diagnosis. FYI: Press F11 to launch patient chart. Place X here if this finding has no clinical significance, is not applicable or if you are not able to provide any additional documentation. Anemia of chronic kidney disease MTDD
[2016-07-30 16:12] LABS: Glucose,Whole Blood 126 mg/dL (75-99)
[2016-07-30 17:56] LABS: Glucose,Whole Blood 125 mg/dL (75-99)
[2016-07-30] MEDS ORDERED: VANCOMYCIN 1,500 MG in SODIUM CHLORIDE 0.9% 250 ML IVPB ONE (19:00)
[2016-07-30 19:36] LABS: Glucose,Whole Blood 118 mg/dL (75-99)
[2016-07-30 20:13] LABS: Glucose,Whole Blood 113 mg/dL (75-99)
--- NOTE | 2016-07-30 20:57 | PN ---
DATE OF SERVICE: 07/30/2016 This 80-year-old gentleman admitted after CAD, CABG also had acute YX-rjsvjlj-bxezgbkwn myocardial infarction, present on admission. Patient is on chronic hemodialysis. Patient also had significant collapse of the left lung. Dr. Santa is planning bronchoscopy at this time. The patient had epistaxis as well as right groin pseudoaneurysm, also noted prior to surgery, which was being treated. The patient is on mechanical ventilation and 100% oxygen was used after bronchoscopy. The patient is currently on per protocol and bronchodilators. Past medical history reviewed. Review of systems could not be taken. Patient is mechanically sedated. Current medications are reviewed and include: 1. Tylenol 1000 mg q.6 p.r.n. 2. [place] 5 mg. 3. Albumin. 4. Albuterol updrafts. 5. Aspirin. 6. Lipitor. 7. Peridex. 8. Lactated Ringers. 9. Reglan. 10. P.r.n. medications. 11. Phenylephrine. 12. Propofol. PHYSICAL EXAMINATION: The patient is mechanically ventilated and sedated. Pulse is 87, blood pressure 152/57, respiration 26, temperature normal, pulse ox 94% on 100% FiO2. HEENT: Conjunctivae normal. Oral mucosa moist. NECK: No jugular venous distention. No carotid bruit. CARDIOVASCULAR SYSTEM: S1, S2 muffled. No S3. No S4. RESPIRATORY: Breath sounds diminished at the bases. A few scattered rhonchi. ABDOMEN: Soft. No mass palpable. LEGS: No edema. No swelling. NERVOUS SYSTEM: Mechanically sedated. Labs at this time show WBC 9.2, hemoglobin 7.6. Otherwise, ABGs are noted; pH 7.3. Creatinine 6.50. ASSESSMENT: 1. Acute tlr-RR-bnledyq-elevation myocardial infarction with chest pain, present on admission, status post coronary artery bypass graft x2. 2. Atelectasis of the left side. 3. On mechanical ventilation. 4. Chronic renal failure, stage IV, on hemodialysis. 5. Anemia, macrocytic, secondary to hemodialysis and renal failure. 6. Epistaxis secondary to septal ulcer, improved. 7. Right groin pseudoaneurysm less than 1 cm with hematoma, status post compression, improving. 8. Increased random blood sugar. 9. Diffuse aches and pains because of rheumatoid arthritis. 10. History of congestive heart failure with chronic systolic dysfunction, ejection fraction 40%. 11. History of hypertension, essential. 12. Hyperlipidemia. 13. History of degenerative joint disease. 14. History of myocardial infarction. 15. History of rheumatoid arthritis. 16. History of multiple organisms growing from the wound. 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 17. Tonsillectomy history. 18. History of degenerative joint disease. 19. FULL CODE. RECOMMENDATIONS AND DISCUSSION: In this 80-year-old gentleman who presented with multiple complex medical issues, at this time we will continue the current medications, continue with symptomatic treatment. Continue with mechanical ventilation. Continue with bronchodilators and the present FiO2. Monitor blood sugars closely. Mechanical ventilation per Dr. Santa. Possible repeat bronchoscopy by Dr. Santa. Further recommendations to follow. MTDD
[2016-07-30 20:59] LABS: Glucose,Whole Blood 118 mg/dL (75-99)
[2016-07-30] MEDS ORDERED: METOPROLOL TARTRATE 25 MG TAB PO SCH (21:00)
[2016-07-30] MEDS: SENNOSIDES-DOCUSATE SODIUM 1 EACH TAB PO SCH (21:34)
[2016-07-30 22:27] LABS: Glucose,Whole Blood 131 mg/dL (75-99)
--- NOTE | 2016-07-30 22:48 | P.PN ---
Subjective Principal diagnosis: cough This is a 80-year-old male known to infectious disease service as he has been treated for infection to his shunt on his left arm before as well as ulceration to his left heel. Patient states that he presented to [facility] because he was initially having epistaxis. This was on Friday. The bleeding was controlled and he was discharged home. He then returned on Friday as he woke up in the morning at 2 AM with a cough and shortness of breath that had been going on but continued to worsen. Patient was diagnosed with a non-ST elevated myocardial infarction and was transferred to [facility] on July 25 for heart catheterization that found two-vessel disease of the proximal LAD and proximal RCA with mild aortic stenosis. He has been evaluated by cardiothoracic surgery and is scheduled for CABG on June 28. Patient does have history of end-stage renal disease on hemodialysis Friday and Friday and is followed by Dr. Fernandez. He denies any problems with his dialysis AV fistula in his left arm. [facility] under the care of Dr. Carey. He has a total contact cast to the left lower extremity which is scheduled to be removed today. Regarding his epistaxis, patient was seen by Dr. Chen on underwent flexible nasal endoscopy finding a right anterior septal ulcer. Dr. Lucas is following from pulmonary medicine. Upon review of his previous wound cultures, he does have history of MRSA. Patient does have history of rheumatoid arthritis on prednisone only. 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 He has been evaluated by interventional radiology and repairs been performed. He is doing well and folow up shows resolution of the pseudoaneurysm The cardiothoracic surgeries occurred. He did not see well but had some bleeding into his lungs. A bronchoscopy today. Likely further bronchoscopy tomorrow for further toileting. Cultures and biopsies in process. Nothing positive so far. He is somewhat hypertensive not hypotensive and did have dialysis today Objective - Vital Signs Vital signs: Vital Signs Temp 99.9 F H 07/30/16 17:00 Pulse 93 07/30/16 20:30 Resp 23 07/30/16 20:30 BP 127/54 07/30/16 03:32 Pulse Ox 96 07/30/16 20:30 Intake & Output 07/30/16 07/30/16 07/31/16 06:59 18:59 06:59 Intake Total 2050.522 1284.308 165.212 Output Total 897 1940 45 Balance 1153.522 -655.692 120.212 Weight 87.6 kg 87.6 kg Intake: IV 808 768 59 CO/CI 100 60 Lactated Ringers 1,000 ml 600 600 50 @ 20 mls/hr IV .Q24H [facility] Rx#:[id number] Pressure Bag 108 108 9 Intake, IV Titration 572.522 516.308 106.212 Amount ACETAMINOPHEN IV (For NPO 100 ) 1,000 mg In Empty Bag 1 bag @ 400 mls/hr IVPB Q6HR [facility] Rx#:[id number] Calcium Gluconate 1,000 100 mg In Sodium Chloride 0.9 % 100 ml @ 100 mls/hr IVPB ONCE ONE Rx#: [id number] Calcium Gluconate 2,000 100 mg In Sodium Chloride 0.9 % 100 ml @ 100 mls/hr IVPB ONCE PRN Rx#: [id number] Clevidipine Butyrate 25 25.966 53.201 28.333 mg In Empty Bag 1 bag @ 1 MG/HR 2 mls/hr IV .Q24H [facility] Rx#:[id number] Insulin Regular 100 unit 3.242 19.484 8.657 In Sodium Chloride 0.9% 100 ml @ Per Protocol IV .Q0M [facility] Rx#:[id number] Nitroglycerin-D5w Pmx 50 193.5 44.00 mg In Dextrose/Water 1 250ml.bag @ 5 MCG/MIN 1.5 mls/hr IV .Q24H [facility] Rx#: [id number] Propofol 500 mg In Empty 249.814 199.623 69.222 Bag 1 bag @ Titrate IV . Q0M [facility] Rx#:[id number] Blood Product 620 Rc Pheresis 2 As3 Unit 310 [id number] Other 50 Rc Pheresis 2 As3 Unit 50 [id number] Output: Chest Tube Drainage 572 320 40 Chest Tube Lateral Chest 272 180 20 Chest Tube Mediastinal 300 140 20 Drainage 35 20 Right Knee 35 20 Urine 290 100 5 Other 1500 Other: Voiding Method Indwelling Catheter Indwelling Catheter ABP, PAP, CO, CI - Last Documented Arterial Blood Pressure 132/43 Pulmonary Artery Pressure 37/19 Cardiac Output 9.3 Cardiac Index 4.8 - Exam Gen: This is a 80-year-old male. Postoperative, intubated sedated and mechanically ventilated HEENT: Head is atraumatic, normocephalic. Pupils equal, round. Sclerae is anicteric. Conjunctiva pink. Mucous members of the mouth are moist. No thrush noted. NECK: Supple. No JVD. No lymphadenopathy. No thyromegaly. LUNGS: Coarse crackles throughout the lung cotto HEART: Regular rate and rhythm. No murmur. ABDOMEN: Soft. Bowel sounds are present. No masses. No tenderness. EXTREMITIES: No pedal edema. No calf tenderness. Total contact cast was removed. The ulceration to the left heel is clean without significant purulence noted drainage. Silver dressing is in place.fistula left arm intact Dialysis graft of the left arm is intact. NEUROLOGICAL: Sedated but responding - Labs CBC & Chem 7: 07/30/16 06:00 07/30/16 06:00 Labs: Abnormal Lab Results - Last 24 Hours (Table) 07/28/16 07/29/16 07/29/16 Range/Units 06:26 22:37 23:06 RBC 2.02 L (4.30-5.90) m/uL Hgb 6.5 L* (13.0-17.5) gm/dL Hct 18.7 L* (39.0-53.0) % RDW 20.1 H (11.5-15.5) % Plt Count 86 L (150-450) k/uL Neutrophils # (1.3-7.7) k/uL Lymphocytes # (1.0-4.8) k/uL ABG pO2 (83-108) mmHg ABG O2 Saturation (94-97) % BUN (9-20) mg/dL Creatinine (0.66-1.25) mg/dL Glucose (74-99) mg/dL POC Glucose (mg/dL) 126 H (75-99) mg/dL Calcium (8.4-10.2) mg/dL Ionized Calcium Lance (4.5-5.3) mg/dL Total Protein (6.3-8.2) g/dL Crossmatch See Detail 07/29/16 07/30/16 07/30/16 Range/Units 23:56 00:56 01:59 RBC (4.30-5.90) m/uL Hgb (13.0-17.5) gm/dL Hct (39.0-53.0) % RDW (11.5-15.5) % Plt Count (150-450) k/uL Neutrophils # (1.3-7.7) k/uL Lymphocytes # (1.0-4.8) k/uL ABG pO2 (83-108) mmHg ABG O2 Saturation (94-97) % BUN (9-20) mg/dL Creatinine (0.66-1.25) mg/dL Glucose (74-99) mg/dL POC Glucose (mg/dL) 125 H 126 H 128 H (75-99) mg/dL Calcium (8.4-10.2) mg/dL Ionized Calcium Lance (4.5-5.3) mg/dL Total Protein (6.3-8.2) g/dL Crossmatch 07/30/16 07/30/16 07/30/16 Range/Units 03:04 04:14 05:19 RBC (4.30-5.90) m/uL Hgb (13.0-17.5) gm/dL Hct (39.0-53.0) % RDW (11.5-15.5) % Plt Count (150-450) k/uL Neutrophils # (1.3-7.7) k/uL Lymphocytes # (1.0-4.8) k/uL ABG pO2 (83-108) mmHg ABG O2 Saturation (94-97) % BUN (9-20) mg/dL Creatinine (0.66-1.25) mg/dL Glucose (74-99) mg/dL POC Glucose (mg/dL) 131 H 130 H 129 H (75-99) mg/dL Calcium (8.4-10.2) mg/dL Ionized Calcium Lance (4.5-5.3) mg/dL Total Protein (6.3-8.2) g/dL Crossmatch 07/30/16 07/30/16 07/30/16 Range/Units 06:00 06:00 06:02 RBC 2.38 L (4.30-5.90) m/uL Hgb 7.6 L (13.0-17.5) gm/dL Hct 21.7 L (39.0-53.0) % RDW 20.2 H (11.5-15.5) % Plt Count 95 L (150-450) k/uL Neutrophils # 8.6 H (1.3-7.7) k/uL Lymphocytes # 0.5 L (1.0-4.8) k/uL ABG pO2 (83-108) mmHg ABG O2 Saturation (94-97) % BUN 57 H (9-20) mg/dL Creatinine 6.50 H* (0.66-1.25) mg/dL Glucose 115 H (74-99) mg/dL POC Glucose (mg/dL) 131 H (75-99) mg/dL Calcium 8.1 L (8.4-10.2) mg/dL Ionized Calcium Lance 4.3 L (4.5-5.3) mg/dL Total Protein 5.4 L (6.3-8.2) g/dL Crossmatch 07/30/16 07/30/16 07/30/16 Range/Units 07:08 07:29 08:07 RBC (4.30-5.90) m/uL Hgb (13.0-17.5) gm/dL Hct (39.0-53.0) % RDW (11.5-15.5) % Plt Count (150-450) k/uL Neutrophils # (1.3-7.7) k/uL Lymphocytes # (1.0-4.8) k/uL ABG pO2 69 L (83-108) mmHg ABG O2 Saturation 93.0 L (94-97) % BUN (9-20) mg/dL Creatinine (0.66-1.25) mg/dL Glucose (74-99) mg/dL POC Glucose (mg/dL) 122 H 124 H (75-99) mg/dL Calcium (8.4-10.2) mg/dL Ionized Calcium Lance (4.5-5.3) mg/dL Total Protein (6.3-8.2) g/dL Crossmatch 07/30/16 07/30/16 07/30/16 Range/Units 09:08 10:00 11:15 RBC (4.30-5.90) m/uL Hgb (13.0-17.5) gm/dL Hct (39.0-53.0) % RDW (11.5-15.5) % Plt Count (150-450) k/uL Neutrophils # (1.3-7.7) k/uL Lymphocytes # (1.0-4.8) k/uL ABG pO2 (83-108) mmHg ABG O2 Saturation (94-97) % BUN (9-20) mg/dL Creatinine (0.66-1.25) mg/dL Glucose (74-99) mg/dL POC Glucose (mg/dL) 123 H 118 H 104 H (75-99) mg/dL Calcium (8.4-10.2) mg/dL Ionized Calcium Lance (4.5-5.3) mg/dL Total Protein (6.3-8.2) g/dL Crossmatch 07/30/16 07/30/16 07/30/16 Range/Units 11:54 13:13 14:31 RBC (4.30-5.90) m/uL Hgb (13.0-17.5) gm/dL Hct (39.0-53.0) % RDW (11.5-15.5) % Plt Count (150-450) k/uL Neutrophils # (1.3-7.7) k/uL Lymphocytes # (1.0-4.8) k/uL ABG pO2 (83-108) mmHg ABG O2 Saturation (94-97) % BUN (9-20) mg/dL Creatinine (0.66-1.25) mg/dL Glucose (74-99) mg/dL POC Glucose (mg/dL) 102 H 107 H 133 H (75-99) mg/dL Calcium (8.4-10.2) mg/dL Ionized Calcium Lance (4.5-5.3) mg/dL Total Protein (6.3-8.2) g/dL Crossmatch 07/30/16 07/30/16 07/30/16 Range/Units 15:06 16:10 17:54 RBC (4.30-5.90) m/uL Hgb (13.0-17.5) gm/dL Hct (39.0-53.0) % RDW (11.5-15.5) % Plt Count (150-450) k/uL Neutrophils # (1.3-7.7) k/uL Lymphocytes # (1.0-4.8) k/uL ABG pO2 (83-108) mmHg ABG O2 Saturation (94-97) % BUN (9-20) mg/dL Creatinine (0.66-1.25) mg/dL Glucose (74-99) mg/dL POC Glucose (mg/dL) 132 H 126 H 125 H (75-99) mg/dL Calcium (8.4-10.2) mg/dL Ionized Calcium Lance (4.5-5.3) mg/dL Total Protein (6.3-8.2) g/dL Crossmatch 07/30/16 07/30/16 07/30/16 Range/Units 19:34 20:09 20:58 RBC (4.30-5.90) m/uL Hgb (13.0-17.5) gm/dL Hct (39.0-53.0) % RDW (11.5-15.5) % Plt Count (150-450) k/uL Neutrophils # (1.3-7.7) k/uL Lymphocytes # (1.0-4.8) k/uL ABG pO2 (83-108) mmHg ABG O2 Saturation (94-97) % BUN (9-20) mg/dL Creatinine (0.66-1.25) mg/dL Glucose (74-99) mg/dL POC Glucose (mg/dL) 118 H 113 H 118 H (75-99) mg/dL Calcium (8.4-10.2) mg/dL Ionized Calcium Lance (4.5-5.3) mg/dL Total Protein (6.3-8.2) g/dL Crossmatch 07/30/16 Range/Units 22:24 RBC (4.30-5.90) m/uL Hgb (13.0-17.5) gm/dL Hct (39.0-53.0) % RDW (11.5-15.5) % Plt Count (150-450) k/uL Neutrophils # (1.3-7.7) k/uL Lymphocytes # (1.0-4.8) k/uL ABG pO2 (83-108) mmHg ABG O2 Saturation (94-97) % BUN (9-20) mg/dL Creatinine (0.66-1.25) mg/dL Glucose (74-99) mg/dL POC Glucose (mg/dL) 131 H (75-99) mg/dL Calcium (8.4-10.2) mg/dL Ionized Calcium Lance (4.5-5.3) mg/dL Total Protein (6.3-8.2) g/dL Crossmatch Laboratory Results WBC 9.8 k/uL (3.8-10.6) 07/30/16 06:00 RBC 2.38 m/uL (4.30-5.90) L 07/30/16 06:00 Hgb 7.6 gm/dL (13.0-17.5) L 07/30/16 06:00 Hct 21.7 % (39.0-53.0) L 07/30/16 06:00 MCV 91.1 fL (80.0-100.0) 07/30/16 06:00 MCH 32.0 pg (25.0-35.0) 07/30/16 06:00 MCHC 35.1 g/dL (31.0-37.0) 07/30/16 06:00 RDW 20.2 % (11.5-15.5) H 07/30/16 06:00 Plt Count 95 k/uL (150-450) L 07/30/16 06:00 Neutrophils % 88 % 07/30/16 06:00 Neutrophils % (Manual) 81.0 % 07/29/16 14:10 Band Neutrophils % 4.0 % 07/29/16 14:10 Lymphocytes % 5 % 07/30/16 06:00 Lymphocytes % (Manual) 9.0 % 07/29/16 14:10 Monocytes % 4 % 07/30/16 06:00 Monocytes % (Manual) 2.0 % 07/29/16 14:10 Eosinophils % 1 % 07/30/16 06:00 Eosinophils % (Manual) 4.0 % 07/29/16 14:10 Basophils % 0 % 07/30/16 06:00 Myelocytes % 0.5 % 07/26/16 06:10 Neutrophils # 8.6 k/uL (1.3-7.7) H 07/30/16 06:00 Neutrophils # (Manual) 12.2 k/uL (1.3-7.7) H 07/29/16 14:10 Lymphocytes # 0.5 k/uL (1.0-4.8) L 07/30/16 06:00 Lymphocytes # (Manual) 1.3 k/uL (1.0-4.8) 07/29/16 14:10 Monocytes # 0.4 k/uL (0-1.0) 07/30/16 06:00 Monocytes # (Manual) 0.3 k/uL (0-1.0) 07/29/16 14:10 Eosinophils # 0.1 k/uL (0-0.7) 07/30/16 06:00 Eosinophils # (Manual) 0.6 k/uL (0-0.7) 07/29/16 14:10 Basophils # 0.0 k/uL (0-0.2) 07/30/16 06:00 Nucleated RBCs 0 /100 WBC (0-0) 07/29/16 14:10 Manual Slide Review Performed 07/26/16 06:10 Polychromasia Present 07/29/16 14:10 Hypochromasia Slight 07/30/16 06:00 Poikilocytosis Slight 07/30/16 06:00 Poikilocytosis (manual Present 07/26/16 06:10 Anisocytosis Moderate 07/30/16 06:00 Macrocytosis Slight 07/30/16 06:00 PT 12.3 sec (9.0-12.0) H 07/29/16 17:20 INR 1.2 (<1.1) 07/29/16 17:20 APTT 29.5 sec (22.0-30.0) 07/29/16 17:20 Fibrinogen 206 mg/dL (200-500) 07/29/16 14:10 Sample Site [place] 07/30/16 07:29 ABG pH 7.39 (7.35-7.45) 07/30/16 07:29 ABG pCO2 36 mmHg (35-45) 07/30/16 07:29 ABG pO2 69 mmHg (83-108) L 07/30/16 07:29 ABG HCO3 21 mmol/L (21-25) 07/30/16 07:29 ABG Total CO2 23 mmol/L (19-24) 07/30/16 07:29 ABG O2 Saturation 93.0 % (94-97) L 07/30/16 07:29 ABG Base Excess -2.9 mmol/L 07/30/16 07:29 FiO2 60 % 07/30/16 07:29 Sodium 140 mmol/L (137-145) 07/30/16 06:00 Potassium 4.9 mmol/L (3.5-5.1) 07/30/16 06:00 Chloride 104 mmol/L (98-107) 07/30/16 06:00 Carbon Dioxide 22 mmol/L (22-30) 07/30/16 06:00 Anion Gap 14 mmol/L 07/30/16 06:00 BUN 57 mg/dL (9-20) H 07/30/16 06:00 Creatinine 6.50 mg/dL (0.66-1.25) H* 07/30/16 06:00 Est GFR (MDRD) Af Amer 10 (>60 ml/min/1.73 sqM) 07/30/16 06:00 Est GFR (MDRD) Non-Af 8 (>60 ml/min/1.73 sqM) 07/30/16 06:00 Glucose 115 mg/dL (74-99) H 07/30/16 06:00 POC Glucose (mg/dL) 131 mg/dL (75-99) H 07/30/16 22:24 POC Glu Premium Cancellation Clerk YESENIA Nathaly Valdez 07/30/16 22:[address] Glu mg/dL 111 mg/dL 07/25/16 06:21 Hemoglobin A1c 5.5 % (4.2-6.1) 07/25/16 06:21 Calcium 8.1 mg/dL (8.4-10.2) L 07/30/16 06:00 Ionized Calcium Lance 4.3 mg/dL (4.5-5.3) L 07/30/16 06:00 Phosphorus 4.6 mg/dL (2.5-4.5) H 07/29/16 22:00 Magnesium 2.2 mg/dL (1.6-2.3) 07/30/16 06:00 Iron 30 ug/dL (49-181) L 07/27/16 05:54 TIBC 273 ug/dL (261-462) 07/27/16 05:54 % Saturation 11.0 % (20-50) L 07/27/16 05:54 Total Bilirubin 1.2 mg/dL (0.2-1.3) 07/30/16 06:00 AST 34 U/L (17-59) 07/30/16 06:00 ALT 31 U/L (21-72) 07/30/16 06:00 Alkaline Phosphatase 39 U/L (38-126) 07/30/16 06:00 NT-Pro-B Natriuret Pep 45732 pg/mL 07/25/16 06:21 Total Protein 5.4 g/dL (6.3-8.2) L 07/30/16 06:00 Albumin 3.5 g/dL (3.5-5.0) 07/30/16 06:00 Triglycerides 78 mg/dL (<150) 07/26/16 06:10 Cholesterol 143 mg/dL (<200) 07/26/16 06:10 LDL Cholesterol, Calc 72 mg/dL (0-99) 07/26/16 06:10 HDL Cholesterol 55 mg/dL (40-60) 07/26/16 06:10 TSH 3.000 mIU/L (0.465-4.680) 07/26/16 06:10 Urine Color Light Yellow 07/25/16 20:46 Urine Appearance Clear (Clear) 07/25/16 20:46 Urine pH 8.0 (5.0-8.0) 07/25/16 20:46 Ur Specific [place] 1.007 (1.001-1.035) 07/25/16 20:46 Urine Protein 2+ (Negative) H 07/25/16 20:46 Urine Glucose (UA) 1+ (Negative) H 07/25/16 20:46 Urine Ketones Negative (Negative) 07/25/16 20:46 Urine Blood Trace (Negative) H 07/25/16 20:46 Urine Nitrite Negative (Negative) 07/25/16 20:46 Urine Bilirubin Negative (Negative) 07/25/16 20:46 Urine Urobilinogen <2.0 mg/dL (<2.0) 07/25/16 20:46 Ur Leukocyte Esterase Negative (Negative) 07/25/16 20:46 Urine RBC <1 /hpf (0-5) 07/25/16 20:46 Urine WBC <1 /hpf (0-5) 07/25/16 20:46 Ur Squamous Epith Cells <1 /hpf (0-4) 07/25/16 20:46 Urine Bacteria Rare /hpf (None) H 07/25/16 20:46 Stool Occult Blood Positive (Negative) 07/25/16 20:46 Random Vancomycin 9.5 ug/mL 07/30/16 06:00 Hepatitis A IgM Ab NEGATIVE 07/26/16 06:10 Hep Bs Antigen Negative 07/26/16 06:10 Hep B Core IgM Ab NEGATIVE 07/26/16 06:10 Hep C IgG Ab Negative (Negative) 07/26/16 06:10 Blood Type B Positive 07/28/16 06:26 Blood Type Confirm B Positive 07/27/16 05:59 Blood Type Recheck CABO Indicated 07/28/16 06:26 Antibody Screen NEGATIVE 07/28/16 06:26 Crossmatch See Detail 07/28/16 06:26 Transfuse Plasma 07/29/2016 07/29/16 12:59 Transfuse Platelets 07/29/2016 07/29/16 13:00 Spec Expiration Date 07/31/2016 - 232507/28/16 06:26 Microbiology 07/25/16 20:46 Urine,Voided Urine Culture - Final Assessment and Plan (1) Non-STEMI (non-ST elevated myocardial infarction) Status: Acute (2) Diabetic foot ulcer associated with type 2 diabetes mellitus Narrative/Plan: The total contact cast has now been removed by the team from the wound center. Local wound care has been applied to the ulceration. He is appropriately anxious for the upcoming cardiovascular surgery. The family is present. The family is reassured that the cardiac thoracic surgeon, Dr. Alcaraz is an excellent surgeon. We will proceed with surgery, Friday. Is having ultrasound of his right groin to make sure is not a pseudoaneurysm. Local wound care with the silver product to the foot ulcer is being utilized. It is about an infected ulceration and needs ongoing local wound care. The ulceration is not a contraindication for this procedure of coronary artery bypass grafting. We will monitor. Had pseudoaneurysm repair and other than discomfort is doing well As noted will have his cardiovascular surgery tomorrow. He is assured to the best of the ability. Case is discussed with the cardiothoracic team he received vancomycin for prophylaxis. Continue local wound care to the ulceration to his heel and offloaded. We'll follow the lung samples for evidence of infection Status: Acute
[2016-07-30 23:16] LABS: Glucose,Whole Blood 129 mg/dL (75-99)
[2016-07-30] MEDS: HYDROcodone/APAP 5-325MG 1 EACH TAB PO PRN (23:33)
[2016-07-31] MEDS: PROPOFOL 500 MG in EMPTY BAG 1 BAG IV SCH ×13 (00:30→23:32)
[2016-07-31 00:35] LABS: Glucose,Whole Blood 114 mg/dL (75-99)
[2016-07-31 00:44] LABS: Anisocytosis Moderate; CH 30.3; CHCM 33.4; HCT 23.2 % (39.0-53.0); HDW 3.57; HGB 8.2 gm/dL (13.0-17.5); Hypochromasia Slight; MCH 32.6 pg (25.0-35.0); MCHC 35.5 g/dL (31.0-37.0); MCV 92.1 fL (80.0-100.0); Macrocytosis Slight; Mean Platelet Volume 7.7; Poikilocytosis Slight; RBC 2.52 m/uL (4.30-5.90); RDW 20.2 % (11.5-15.5); WBC 12.6 k/uL (3.8-10.6)
[2016-07-31 00:51] LABS: Ionized Calcium 4.4 mg/dL (4.5-5.3)
[2016-07-31 00:59] LABS: Calcium 8.2 mg/dL (8.4-10.2); Magnesium 1.8 mg/dL (1.6-2.3); Phosphorous 4.4 mg/dL (2.5-4.5); Total Bilirubin 1.2 mg/dL (0.2-1.3); Total Protein 5.3 g/dL (6.3-8.2)
[2016-07-31 01:08] LABS: Glucose,Whole Blood 118 mg/dL (75-99)
[2016-07-31 02:03] LABS: Glucose,Whole Blood 130 mg/dL (75-99)
[2016-07-31] MEDS: IPRATROPIUM-ALBUTEROL 3 ML NEB INHALATION SCH ×6 (03:44→23:34)
[2016-07-31 04:31] LABS: Glucose,Whole Blood 112 mg/dL (75-99)
[2016-07-31] MEDS: HYDROcodone/APAP 5-325MG 1 EACH TAB PO PRN (05:10)
[2016-07-31 05:20] LABS: Glucose,Whole Blood 111 mg/dL (75-99)
[2016-07-31 05:56] LABS: Glucose,Whole Blood 116 mg/dL (75-99)
[2016-07-31] MEDS: MAGNESIUM SULFATE-D5W PMX 1 GM in DEXTROSE/WATER 1 100ML.BAG IVPB SCH ×2 (06:03→07:05)
[2016-07-31 07:10] LABS: Glucose,Whole Blood 118 mg/dL (75-99)
[2016-07-31 07:21] LABS: INR 1.2 (<1.1)
[2016-07-31] MEDS: CLEVIDIPINE BUTYRATE 25 MG in EMPTY BAG 1 BAG IV SCH ×2 (07:38→07:39)
--- NOTE | 2016-07-31 07:40 | XR ---
EXAMINATION TYPE: XR chest 1V portable DATE OF EXAM: 07/31/2016 6:45 AM COMPARISON: 07/30/2016 HISTORY: Post bronc TECHNIQUE: Single frontal view of the chest is obtained. FINDINGS: Chronic rib deformity seen. Bilateral effusion and infiltrate seen. Chest tubes noted. No sizable pneumothorax. Arthropathy of the shoulders. Postsurgical changes noted. ET and NG tubes stabl e. IMPRESSION: 1. Improved aeration within the left hemithorax with persistent underlying infiltrate and bilateral e ffusions. Mild underlying venous congestion not excluded.
[2016-07-31] MEDS ORDERED: CISATRACURIUM 2 MG/ML 5 ML VIAL IV ONE (07:45)
[2016-07-31] MEDS: MORPHINE SULFATE 2 MG/ML SYRINGE IVP PRN (07:50)
[2016-07-31 08:41] LABS: Glucose,Whole Blood 128 mg/dL (75-99)
[2016-07-31] MEDS: HEPARIN SODIUM,PORCINE 5,000 UNIT/ML 1 ML VIAL SQ SCH ×3 (08:44→16:46)
[2016-07-31] MEDS: MUPIROCIN 2% OINT 22 GM TUBE NASAL SCH (08:45)
[2016-07-31] MEDS: METOPROLOL TARTRATE 25 MG TAB PO SCH ×2 (08:46→21:10)
[2016-07-31] MEDS: ATORVASTATIN 40 MG TAB PO SCH (08:51)
[2016-07-31] MEDS: ASPIRIN 81 MG CHEW PO SCH (08:51)
[2016-07-31] MEDS: CHLORHEXIDINE GLUCONATE 15 ML CUP MUCOUS MEM SCH ×2 (08:52→21:10)
[2016-07-31] MEDS: PANTOPRAZOLE 40 MG/10 ML VIAL IVP SCH (08:52)
[2016-07-31 08:57] LABS: Anisocytosis Moderate; Basophils % (A) 0 %; CH 30.8; CHCM 32.8; Eosinophils # (A) 0.4 k/uL (0-0.7); Eosinophils % (A) 3 %; HCT 24.5 % (39.0-53.0); HDW 3.39; HGB 7.9 gm/dL (13.0-17.5); Hypochromasia Slight; Luc # (Auto) 0.16; Luc % (Auto) 1; Lymphocytes # (A) 0.4 k/uL (1.0-4.8); Lymphocytes % (A) 3 %; MCH 30.5 pg (25.0-35.0); MCHC 32.2 g/dL (31.0-37.0); MCV 94.8 fL (80.0-100.0); Macrocytosis Slight; Mean Platelet Volume 7.5; Monocytes # (A) 0.4 k/uL (0-1.0); Monocytes % (A) 3 %; Neutrophils % (A) 89 %; RBC 2.58 m/uL (4.30-5.90); RDW 20.2 % (11.5-15.5); WBC 12.3 k/uL (3.8-10.6); WBC (Perox) 12.82
[2016-07-31] MEDS ORDERED: METOPROLOL TARTRATE 50 MG TAB PO SCH (09:00)
[2016-07-31] MEDS ORDERED: CLOPIDOGREL 75 MG TAB PO SCH (09:00)
[2016-07-31 09:05] LABS: INR 1.1 (<1.1); Prothrombin Time 11.3 sec (9.0-12.0)
[2016-07-31 09:07] LABS: Ionized Calcium 4.4 mg/dL (4.5-5.3)
--- NOTE | 2016-07-31 09:13 | PN ---
Mr. Xie underwent aortocoronary bypass surgery yesterday. He is hemodynamically stable, doing well. He still on vent. Extubation will happen after the dialysis is over. He is not on any significant drips. Remains in sinus rhythm. Blood pressure is acceptable. S1, S2 heard normally. There is soft, pericardial rub audible. Lungs reveal bilateral air entry. Abdomen and lower extremities exam is unchanged. Plan is to continue current medications and weaning efforts will be initiated after the dialysis is complete. No new specific suggestions from a cardiac standpoint.
[2016-07-31 09:19] LABS: Calcium 8.2 mg/dL (8.4-10.2); Magnesium 2.5 mg/dL (1.6-2.3); Potassium 4.1 mmol/L (3.5-5.1); Total Bilirubin 1.4 mg/dL (0.2-1.3); Total Protein 5.5 g/dL (6.3-8.2)
--- NOTE | 2016-07-31 10:13 | OP ---
DATE OF SERVICE: 07/30/2016 SURGEON: GEORGIANA GERBER MD PREOPERATIVE DIAGNOSIS: Left lung collapse secondary to plugging of the left main stem bronchus. POSTOPERATIVE DIAGNOSIS: Left lung collapse secondary to plugging of the left main stem bronchus. OPERATION: Bronchoscopy and multiple attempts to remove left main stem endobronchial tissue and/or blood clots, and endobronchial biopsies. ANESTHESIA: The patient was already on propofol drip and he received morphine sulfate 2 mg prior to the procedure. DESCRIPTION OF PROCEDURE: Patient was placed in a supine position. He was already on mechanical ventilation. The endotracheal tube was connected to an adapter, and the adapter was connected to mechanical ventilation. During the procedure and we were able to monitor her O2 saturation continuously, monitored blood pressure continuously, and we also monitored cardiac rhythm continuously. The bronchoscope was inserted through the adapter down to the area of the distal trachea. The tube was noted to be about 3 cm above the vinod. The vinod was noted to be sharp, right side was relatively unremarkable. Right upper lobe, right middle lobe, right lower lobe were normal. However, as I entered the left main stem bronchus, there was clearly a tissue-like material completely occluding and flopping in the area of the left main stem bronchus, compromising the flow of the air to the left upper lobe, lingula, and left lower lobe. The area was washed continuously and we could not remove much of the tissue. The tissue seemed to be adherent to the bronchial mucosa. Multiple biopsies and piecemeal biopsies were done from the tissue itself, and multiple attempts with basket were done; however, I could not remove the tissue, which was either blood or bronchial tissue, occluding the left main stem bronchus. After almost one hour of trying to remove all of the fat tissue from the left main stem bronchus, finally we decided to leave the patient alone, reconnect him back to mechanical ventilation, and we will try to evaluate tomorrow depending on the chest x-ray appearance. A follow-up chest x-ray postoperatively continued to show complete opacification of the left lung. The findings were communicated with Dr. Alcaraz and we will hopefully take a look at area of the left main stem bronchus again tomorrow with the surgeon available at bedside.
[2016-07-31 10:14] LABS: Glucose,Whole Blood 123 mg/dL (75-99)
--- NOTE | 2016-07-31 10:32 | P.PN ---
Subjective Principal diagnosis: Status post CABG postoperative day # 2 This is a 80-year-old white male with history of multiple medical problems including hypertension, previous ischemic heart disease and mild aortic stenosis. End-stage renal disease on hemodialysis. History of rheumatoid arthritis, patient was admitted recently with chest pain, cardiac enzymes were suggestive of non-ST elevation myocardial infarction, cardiac cath showed significant coronary artery disease with critical lesion in the proximal LAD also the proximal RCA. Today, the patient underwent myocardial revascularization by Dr. Alcaraz, and he was placed on mechanical ventilation postoperatively, seen in the ICU for consultation and postoperative ventilator management. Presently, the patient is on 100% FiO2, assist control rate of 12, PEEP of 5, and tidal volume of 500. Initial ABG showed a pO2 of 364, pCO2 of 42 pH of 7.32. However shortly after patient was placed on a 50% FiO2, and he was noted to have significant drop in his saturation based on pulse oximetry. Repeat ABG showed worsening oxygenation with a pO2 of 46 pCO2 of 50 and pH of 7.28. Hence placed back on 100%, increased his rate up to 16, and increased the PEEP to 10. Follow-up chest x-ray showed worsening pulmonary edema, remind you patient is a hemodialysis patient. Follow-up ABG is pending. Patient is presently fully sedated, and in no distress. Reevaluated today on 07/30/2016, patient is status post off pump double coronary artery bypass grafting using L REJI to LAD, and reverse saphenous vein graft from the aorta to the posterior descending artery.patient remains on mechanical ventilation, chest x-ray is showing worsening picture of pulmonary edema, however the possibility of bleeding into the left midlung area and left lower lobe is not entirely ruled out there seems to be a worsening consolidation in the area of the left midlung and left lower lobe, hence may consider bronchoscopy on this patient. In the meantime, patient is being ultrafiltrate it today, and hopefully that will make a significant improvement on the chest x- ray appearance, and may help oxygenation.labs were reviewed, WBC count is 9.8 hemoglobin is 7.6 it was 6.5 earlier today,patient received a total of 5 units of packed RBCs since admission, 2 units of fresh frozen plasma, and 3 units of platelets. Reevaluated today on 07/31/2016, patient underwent another bronchoscopy today although his chest x-ray was showing some improvement compared to the chest x- ray yesterday after bronchoscopy. There was evidence of more aeration of the left upper lobe and lingula on the chest x-ray today. Today I was able to clear plugs from the left lower lobe bronchus, and from the lingular bronchus. Throughout the procedure there was some oozing of blood, and the mucosa of the bronchial tube was noted to be very fragile and bled easily. No biopsies were done. But suctioning and lavages of the left lower lobe and lingula was performed. In the meantime the patient remains on mechanical ventilations, today I increased his tidal volume up to 550 kept him on assist control rate of 16 I increased the flow rates up to 70, and FiO2 will be titrated down from 100 % during the bronchoscopy to as low as 50% as tolerated, and PEEP remains at 10 for the time being. Labs were reviewed, hemoglobin is 7.9 platelets are 114. Electrolytes were reviewed BUN is 31 creatinine is 4.29. Objective - Vital Signs Vital signs: Vital Signs Temp 99.9 F H 07/30/16 17:00 Pulse 87 07/31/16 07:00 Resp 19 07/31/16 07:00 BP 127/54 07/30/16 03:32 Pulse Ox 100 07/31/16 07:00 Intake & Output 07/30/16 07/31/16 07/31/16 18:59 06:59 18:59 Intake Total 1284.308 916.879 154.817 Output Total 1940 439 10 Balance -655.692 477.879 144.817 Weight 87.6 kg 90.4 kg 90.4 kg Intake: IV 768 639 39 CO/CI 60 50 Lactated Ringers 1,000 ml 600 490 30 @ 20 mls/hr IV .Q24H [facility] Rx#:[id number] Pressure Bag 108 99 9 Intake, IV Titration 516.308 277.879 115.817 Amount ACETAMINOPHEN IV (For NPO 100 ) 1,000 mg In Empty Bag 1 bag @ 400 mls/hr IVPB Q6HR [facility] Rx#:[id number] Calcium Gluconate 2,000 100 mg In Sodium Chloride 0.9 % 100 ml @ 100 mls/hr IVPB ONCE PRN Rx#: [id number] Clevidipine Butyrate 25 53.201 100.000 44.133 mg In Empty Bag 1 bag @ 1 MG/HR 2 mls/hr IV .Q24H [facility] Rx#:[id number] Insulin Regular 100 unit 19.484 8.657 In Sodium Chloride 0.9% 100 ml @ Per Protocol IV .Q0M [facility] Rx#:[id number] Nitroglycerin-D5w Pmx 50 44.00 mg In Dextrose/Water 1 250ml.bag @ 5 MCG/MIN 1.5 mls/hr IV .Q24H [facility] Rx#: [id number] Propofol 500 mg In Empty 199.623 169.222 71.684 Bag 1 bag @ Titrate IV . Q0M [facility] Rx#:[id number] Output: Chest Tube Drainage 320 330 0 Chest Tube Lateral Chest 180 190 0 Chest Tube Mediastinal 140 140 0 Drainage 20 25 Right Knee 20 25 Urine 100 84 10 Other 1500 Other: Voiding Method Indwelling Catheter Indwelling Catheter ABP, PAP, CO, CI - Last Documented Arterial Blood Pressure 124/45 Pulmonary Artery Pressure 34/23 Cardiac Output 7.5 Cardiac Index 3.9 - Exam Physical Exam revealed a 80 year-old sedated, intubated, on mechanical ventilation, in no distress. Endotracheal tube is intact. HEENT:[Neck is supple.] [No neck masses.] [No thyromegaly.] [No JVD.] Chest: [Clear on the right side, but diminished on the left side., Minimal crackles and rhonchi at the bases.] Cardiac Exam: [Normal S1 and S2, no S3 gallop, no murmur. The pericardial rub] Abdomen: [Soft, nontender, no megaly, no rebound, no guarding, normal bowel sounds.] Extremities: [No clubbing, plus bipedal edema, no cyanosis.] Neurological Exam: [Not be assessed, patient is sedated on mechanical ventilation. - Labs CBC & Chem 7: 07/31/16 08:45 07/31/16 08:45 Labs: Abnormal Lab Results - Last 24 Hours (Table) 07/30/16 07/30/16 07/30/16 Range/Units 11:15 11:54 13:13 WBC (3.8-10.6) k/uL RBC (4.30-5.90) m/uL Hgb (13.0-17.5) gm/dL Hct (39.0-53.0) % RDW (11.5-15.5) % Plt Count (150-450) k/uL Neutrophils # (1.3-7.7) k/uL Lymphocytes # (1.0-4.8) k/uL Sodium (137-145) mmol/L Chloride (98-107) mmol/L BUN (9-20) mg/dL Creatinine (0.66-1.25) mg/dL Glucose (74-99) mg/dL POC Glucose (mg/dL) 104 H 102 H 107 H (75-99) mg/dL Calcium (8.4-10.2) mg/dL Ionized Calcium Lance (4.5-5.3) mg/dL Magnesium (1.6-2.3) mg/dL Total Bilirubin (0.2-1.3) mg/dL Total Protein (6.3-8.2) g/dL Albumin (3.5-5.0) g/dL 07/30/16 07/30/16 07/30/16 Range/Units 14:31 15:06 16:10 WBC (3.8-10.6) k/uL RBC (4.30-5.90) m/uL Hgb (13.0-17.5) gm/dL Hct (39.0-53.0) % RDW (11.5-15.5) % Plt Count (150-450) k/uL Neutrophils # (1.3-7.7) k/uL Lymphocytes # (1.0-4.8) k/uL Sodium (137-145) mmol/L Chloride (98-107) mmol/L BUN (9-20) mg/dL Creatinine (0.66-1.25) mg/dL Glucose (74-99) mg/dL POC Glucose (mg/dL) 133 H 132 H 126 H (75-99) mg/dL Calcium (8.4-10.2) mg/dL Ionized Calcium Lance (4.5-5.3) mg/dL Magnesium (1.6-2.3) mg/dL Total Bilirubin (0.2-1.3) mg/dL Total Protein (6.3-8.2) g/dL Albumin (3.5-5.0) g/dL 07/30/16 07/30/16 07/30/16 Range/Units 17:54 19:34 20:09 WBC (3.8-10.6) k/uL RBC (4.30-5.90) m/uL Hgb (13.0-17.5) gm/dL Hct (39.0-53.0) % RDW (11.5-15.5) % Plt Count (150-450) k/uL Neutrophils # (1.3-7.7) k/uL Lymphocytes # (1.0-4.8) k/uL Sodium (137-145) mmol/L Chloride (98-107) mmol/L BUN (9-20) mg/dL Creatinine (0.66-1.25) mg/dL Glucose (74-99) mg/dL POC Glucose (mg/dL) 125 H 118 H 113 H (75-99) mg/dL Calcium (8.4-10.2) mg/dL Ionized Calcium Lance (4.5-5.3) mg/dL Magnesium (1.6-2.3) mg/dL Total Bilirubin (0.2-1.3) mg/dL Total Protein (6.3-8.2) g/dL Albumin (3.5-5.0) g/dL 07/30/16 07/30/16 07/30/16 Range/Units 20:58 22:24 23:09 WBC (3.8-10.6) k/uL RBC (4.30-5.90) m/uL Hgb (13.0-17.5) gm/dL Hct (39.0-53.0) % RDW (11.5-15.5) % Plt Count (150-450) k/uL Neutrophils # (1.3-7.7) k/uL Lymphocytes # (1.0-4.8) k/uL Sodium (137-145) mmol/L Chloride (98-107) mmol/L BUN (9-20) mg/dL Creatinine (0.66-1.25) mg/dL Glucose (74-99) mg/dL POC Glucose (mg/dL) 118 H 131 H 129 H (75-99) mg/dL Calcium (8.4-10.2) mg/dL Ionized Calcium Lance (4.5-5.3) mg/dL Magnesium (1.6-2.3) mg/dL Total Bilirubin (0.2-1.3) mg/dL Total Protein (6.3-8.2) g/dL Albumin (3.5-5.0) g/dL 07/31/16 07/31/16 07/31/16 Range/Units 00:25 00:25 00:31 WBC 12.6 H (3.8-10.6) k/uL RBC 2.52 L (4.30-5.90) m/uL Hgb 8.2 L (13.0-17.5) gm/dL Hct 23.2 L (39.0-53.0) % RDW 20.2 H (11.5-15.5) % Plt Count 120 L (150-450) k/uL Neutrophils # (1.3-7.7) k/uL Lymphocytes # (1.0-4.8) k/uL Sodium 133 L (137-145) mmol/L Chloride 96 L (98-107) mmol/L BUN 28 H (9-20) mg/dL Creatinine 4.00 H (0.66-1.25) mg/dL Glucose 106 H (74-99) mg/dL POC Glucose (mg/dL) 114 H (75-99) mg/dL Calcium 8.2 L (8.4-10.2) mg/dL Ionized Calcium Lance 4.4 L (4.5-5.3) mg/dL Magnesium (1.6-2.3) mg/dL Total Bilirubin (0.2-1.3) mg/dL Total Protein 5.3 L (6.3-8.2) g/dL Albumin 3.3 L (3.5-5.0) g/dL 07/31/16 07/31/16 07/31/16 Range/Units 01:07 01:58 04:28 WBC (3.8-10.6) k/uL RBC (4.30-5.90) m/uL Hgb (13.0-17.5) gm/dL Hct (39.0-53.0) % RDW (11.5-15.5) % Plt Count (150-450) k/uL Neutrophils # (1.3-7.7) k/uL Lymphocytes # (1.0-4.8) k/uL Sodium (137-145) mmol/L Chloride (98-107) mmol/L BUN (9-20) mg/dL Creatinine (0.66-1.25) mg/dL Glucose (74-99) mg/dL POC Glucose (mg/dL) 118 H 130 H 112 H (75-99) mg/dL Calcium (8.4-10.2) mg/dL Ionized Calcium Lance (4.5-5.3) mg/dL Magnesium (1.6-2.3) mg/dL Total Bilirubin (0.2-1.3) mg/dL Total Protein (6.3-8.2) g/dL Albumin (3.5-5.0) g/dL 07/31/16 07/31/16 07/31/16 Range/Units 05:19 05:55 07:08 WBC (3.8-10.6) k/uL RBC (4.30-5.90) m/uL Hgb (13.0-17.5) gm/dL Hct (39.0-53.0) % RDW (11.5-15.5) % Plt Count (150-450) k/uL Neutrophils # (1.3-7.7) k/uL Lymphocytes # (1.0-4.8) k/uL Sodium (137-145) mmol/L Chloride (98-107) mmol/L BUN (9-20) mg/dL Creatinine (0.66-1.25) mg/dL Glucose (74-99) mg/dL POC Glucose (mg/dL) 111 H 116 H 118 H (75-99) mg/dL Calcium (8.4-10.2) mg/dL Ionized Calcium Lance (4.5-5.3) mg/dL Magnesium (1.6-2.3) mg/dL Total Bilirubin (0.2-1.3) mg/dL Total Protein (6.3-8.2) g/dL Albumin (3.5-5.0) g/dL 07/31/16 07/31/16 07/31/16 Range/Units 08:40 08:45 08:45 WBC 12.3 H (3.8-10.6) k/uL RBC 2.58 L (4.30-5.90) m/uL Hgb 7.9 L (13.0-17.5) gm/dL Hct 24.5 L (39.0-53.0) % RDW 20.2 H (11.5-15.5) % Plt Count 114 L (150-450) k/uL Neutrophils # 11.0 H (1.3-7.7) k/uL Lymphocytes # 0.4 L (1.0-4.8) k/uL Sodium 133 L (137-145) mmol/L Chloride 97 L (98-107) mmol/L BUN 31 H (9-20) mg/dL Creatinine 4.29 H (0.66-1.25) mg/dL Glucose 122 H (74-99) mg/dL POC Glucose (mg/dL) 128 H (75-99) mg/dL Calcium 8.2 L (8.4-10.2) mg/dL Ionized Calcium Lance 4.4 L (4.5-5.3) mg/dL Magnesium 2.5 H (1.6-2.3) mg/dL Total Bilirubin 1.4 H (0.2-1.3) mg/dL Total Protein 5.5 L (6.3-8.2) g/dL Albumin 3.2 L (3.5-5.0) g/dL 07/31/16 Range/Units 10:12 WBC (3.8-10.6) k/uL RBC (4.30-5.90) m/uL Hgb (13.0-17.5) gm/dL Hct (39.0-53.0) % RDW (11.5-15.5) % Plt Count (150-450) k/uL Neutrophils # (1.3-7.7) k/uL Lymphocytes # (1.0-4.8) k/uL Sodium (137-145) mmol/L Chloride (98-107) mmol/L BUN (9-20) mg/dL Creatinine (0.66-1.25) mg/dL Glucose (74-99) mg/dL POC Glucose (mg/dL) 123 H (75-99) mg/dL Calcium (8.4-10.2) mg/dL Ionized Calcium Lance (4.5-5.3) mg/dL Magnesium (1.6-2.3) mg/dL Total Bilirubin (0.2-1.3) mg/dL Total Protein (6.3-8.2) g/dL Albumin (3.5-5.0) g/dL Assessment and Plan Plan: Impression: 1 status post CABG, on mechanical ventilation, postoperative day # 2 2 acute pulmonary edema as noted on the chest x-ray, patient is a hemodialysis patient and his history of chronic renal disease. 3 history of mild aortic stenosis 4 history of mild LV dysfunction 5 history of chronic anemia 6 history of chronic renal failure on hemodialysis 7 history of hypertension 8 history of hyperlipidemia 9 history of right groin pseudoaneurysm following cardiac catheterization. 10 history of right-sided epistaxis felt to be related to previous a staphylococcal colonization, 11 history of rheumatoid arthritis 12 significant blood clots and organized clotting noted in the left mainstem bronchus causing left lung collapse, requiring bronchoscopy and lavage 2 so far in the last 24 hours. Recommendation: Continue ventilatory support, no plans to wean the patient today until we make certain that the lung remained fully expanded in the next 24 hours. Otherwise I may have to bronchoscope the patient again Time with Patient: Less than 30
[2016-07-31] MEDS ORDERED: DESMOPRESSIN INJ 30 MCG in SODIUM CHLORIDE 0.9% 50 ML IVPB ONE (12:00)
[2016-07-31 12:08] LABS: Glucose,Whole Blood 103 mg/dL (75-99)
--- NOTE | 2016-07-31 12:31 | P.PN ---
<Karis Stephens - Last Filed: 07/31/16 12:29> Subjective Principal diagnosis: Non-ST elevation myocardial infarction. POD #2 non-aortic clamp off pump double coronary artery bypass grafting using the left internal mammary artery to the left anterior descending artery and reverse saphenous vein graft from the aorta to the posterior descending artery. Endoscopic harvesting of the right greater saphenous vein. Intraoperative transesophageal echocardiogram and epi-aortic scanning. Intraoperative graft flow measurements using the Medistim machine. Patient continues to be sedated on the ventilator. Per pulmonary patient is heavily sedated as they don't want him breathing over the ventilator. Objective - Vital Signs Vital signs: Vital Signs Temp 99.9 F H 07/30/16 17:00 Pulse 87 07/31/16 07:00 Resp 19 07/31/16 07:00 BP 127/54 07/30/16 03:32 Pulse Ox 100 07/31/16 07:00 Intake & Output 07/30/16 07/31/16 07/31/16 18:59 06:59 18:59 Intake Total 1284.308 916.879 69.841 Output Total 1940 439 10 Balance -655.692 477.879 59.841 Weight 87.6 kg 90.4 kg Intake: IV 768 639 39 CO/CI 60 50 Lactated Ringers 1,000 ml 600 490 30 @ 20 mls/hr IV .Q24H [facility] Rx#:[id number] Pressure Bag 108 99 9 Intake, IV Titration 516.308 277.879 30.841 Amount ACETAMINOPHEN IV (For NPO 100 ) 1,000 mg In Empty Bag 1 bag @ 400 mls/hr IVPB Q6HR [facility] Rx#:[id number] Calcium Gluconate 2,000 100 mg In Sodium Chloride 0.9 % 100 ml @ 100 mls/hr IVPB ONCE PRN Rx#: [id number] Clevidipine Butyrate 25 53.201 100.000 0.4 mg In Empty Bag 1 bag @ 1 MG/HR 2 mls/hr IV .Q24H [facility] Rx#:[id number] Insulin Regular 100 unit 19.484 8.657 In Sodium Chloride 0.9% 100 ml @ Per Protocol IV .Q0M [facility] Rx#:[id number] Nitroglycerin-D5w Pmx 50 44.00 mg In Dextrose/Water 1 250ml.bag @ 5 MCG/MIN 1.5 mls/hr IV .Q24H [facility] Rx#: [id number] Propofol 500 mg In Empty 199.623 169.222 30.441 Bag 1 bag @ Titrate IV . Q0M R[facility] Rx#:[id number] Output: Chest Tube Drainage 320 330 0 Chest Tube Lateral Chest 180 190 0 Chest Tube Mediastinal 140 140 0 Drainage 20 25 Right Knee 20 25 Urine 100 84 10 Other 1500 Other: Voiding Method Indwelling Catheter Indwelling Catheter ABP, PAP, CO, CI - Last Documented Arterial Blood Pressure 124/45 Pulmonary Artery Pressure 34/23 Cardiac Output 7.5 Cardiac Index 3.9 - Constitutional General appearance: Present: no acute distress - Respiratory Details: Lungs sounds diminished with coarse breath sounds on the left. Current ventilator settings assist control, tidal volume 500, FiO2 100%, resp rate 16, PEEP 10. 9.0 ET tube, 21 at the lip. Left pleural chest tube to -20 cm wall suction, drained 140 mL serous fluid in the last 8 hours, 390 mL overnight. Mediastinal chest tube to -20 cm wall suction, drained 100 mL serosanguineous fluid last 8 hours, 310 mL in the last 24 hours. No air leaks present. - Cardiovascular Details: S1, S2 present. Regular rate and rhythm, normal sinus rhythm on telemetry. [place] remains present, arterial line remains present. Sternum stable. No edema present. Teds/SCDs present. - Gastrointestinal Gastrointestinal Comment(s): Abdomen soft, nondistended. Hypoactive bowel sounds 4 quadrants. NG tube present to low intermittent suction with minimal dark output. - Genitourinary Genitourinary Comment(s): Sparks present draining minimal clear, yellow urine. Patient received hemodialysis yesterday, 1.5 L removed. - Integumentary Integumentary Comment(s): Anterior chest incision covered with dry intact Silverlon dressing. Right lower extremity EVH site well approximated with NEYDA draining minimal serous fluid. - Musculoskeletal Musculoskeletal Comment(s): Patient currently on bedrest while sedated on ventilator. - Psychiatric Psychiatric Comment(s): Currently sedated on 75 mcg/kg of Propofol, no evidence of anxiety. - Allied health notes Allied health notes reviewed: nursing - Labs CBC & Chem 7: 07/31/16 08:45 07/31/16 08:45 Labs: Abnormal Lab Results - Last 24 Hours (Table) 07/30/16 07/30/16 07/30/16 Range/Units 09:08 10:00 11:15 WBC (3.8-10.6) k/uL RBC (4.30-5.90) m/uL Hgb (13.0-17.5) gm/dL Hct (39.0-53.0) % RDW (11.5-15.5) % Plt Count (150-450) k/uL Sodium (137-145) mmol/L Chloride (98-107) mmol/L BUN (9-20) mg/dL Creatinine (0.66-1.25) mg/dL Glucose (74-99) mg/dL POC Glucose (mg/dL) 123 H 118 H 104 H (75-99) mg/dL Calcium (8.4-10.2) mg/dL Ionized Calcium Lance (4.5-5.3) mg/dL Total Protein (6.3-8.2) g/dL Albumin (3.5-5.0) g/dL 07/30/16 07/30/16 07/30/16 Range/Units 11:54 13:13 14:31 WBC (3.8-10.6) k/uL RBC (4.30-5.90) m/uL Hgb (13.0-17.5) gm/dL Hct (39.0-53.0) % RDW (11.5-15.5) % Plt Count (150-450) k/uL Sodium (137-145) mmol/L Chloride (98-107) mmol/L BUN (9-20) mg/dL Creatinine (0.66-1.25) mg/dL Glucose (74-99) mg/dL POC Glucose (mg/dL) 102 H 107 H 133 H (75-99) mg/dL Calcium (8.4-10.2) mg/dL Ionized Calcium Lance (4.5-5.3) mg/dL Total Protein (6.3-8.2) g/dL Albumin (3.5-5.0) g/dL 07/30/16 07/30/16 07/30/16 Range/Units 15:06 16:10 17:54 WBC (3.8-10.6) k/uL RBC (4.30-5.90) m/uL Hgb (13.0-17.5) gm/dL Hct (39.0-53.0) % RDW (11.5-15.5) % Plt Count (150-450) k/uL Sodium (137-145) mmol/L Chloride (98-107) mmol/L BUN (9-20) mg/dL Creatinine (0.66-1.25) mg/dL Glucose (74-99) mg/dL POC Glucose (mg/dL) 132 H 126 H 125 H (75-99) mg/dL Calcium (8.4-10.2) mg/dL Ionized Calcium Lance (4.5-5.3) mg/dL Total Protein (6.3-8.2) g/dL Albumin (3.5-5.0) g/dL 07/30/16 07/30/16 07/30/16 Range/Units 19:34 20:09 20:58 WBC (3.8-10.6) k/uL RBC (4.30-5.90) m/uL Hgb (13.0-17.5) gm/dL Hct (39.0-53.0) % RDW (11.5-15.5) % Plt Count (150-450) k/uL Sodium (137-145) mmol/L Chloride (98-107) mmol/L BUN (9-20) mg/dL Creatinine (0.66-1.25) mg/dL Glucose (74-99) mg/dL POC Glucose (mg/dL) 118 H 113 H 118 H (75-99) mg/dL Calcium (8.4-10.2) mg/dL Ionized Calcium Lance (4.5-5.3) mg/dL Total Protein (6.3-8.2) g/dL Albumin (3.5-5.0) g/dL 07/30/16 07/30/16 07/31/16 Range/Units 22:24 23:09 00:25 WBC 12.6 H (3.8-10.6) k/uL RBC 2.52 L (4.30-5.90) m/uL Hgb 8.2 L (13.0-17.5) gm/dL Hct 23.2 L (39.0-53.0) % RDW 20.2 H (11.5-15.5) % Plt Count 120 L (150-450) k/uL Sodium (137-145) mmol/L Chloride (98-107) mmol/L BUN (9-20) mg/dL Creatinine (0.66-1.25) mg/dL Glucose (74-99) mg/dL POC Glucose (mg/dL) 131 H 129 H (75-99) mg/dL Calcium (8.4-10.2) mg/dL Ionized Calcium Lance (4.5-5.3) mg/dL Total Protein (6.3-8.2) g/dL Albumin (3.5-5.0) g/dL 07/31/16 07/31/16 07/31/16 Range/Units 00:25 00:31 01:07 WBC (3.8-10.6) k/uL RBC (4.30-5.90) m/uL Hgb (13.0-17.5) gm/dL Hct (39.0-53.0) % RDW (11.5-15.5) % Plt Count (150-450) k/uL Sodium 133 L (137-145) mmol/L Chloride 96 L (98-107) mmol/L BUN 28 H (9-20) mg/dL Creatinine 4.00 H (0.66-1.25) mg/dL Glucose 106 H (74-99) mg/dL POC Glucose (mg/dL) 114 H 118 H (75-99) mg/dL Calcium 8.2 L (8.4-10.2) mg/dL Ionized Calcium Lance 4.4 L (4.5-5.3) mg/dL Total Protein 5.3 L (6.3-8.2) g/dL Albumin 3.3 L (3.5-5.0) g/dL 07/31/16 07/31/16 07/31/16 Range/Units 01:58 04:28 05:19 WBC (3.8-10.6) k/uL RBC (4.30-5.90) m/uL Hgb (13.0-17.5) gm/dL Hct (39.0-53.0) % RDW (11.5-15.5) % Plt Count (150-450) k/uL Sodium (137-145) mmol/L Chloride (98-107) mmol/L BUN (9-20) mg/dL Creatinine (0.66-1.25) mg/dL Glucose (74-99) mg/dL POC Glucose (mg/dL) 130 H 112 H 111 H (75-99) mg/dL Calcium (8.4-10.2) mg/dL Ionized Calcium Lance (4.5-5.3) mg/dL Total Protein (6.3-8.2) g/dL Albumin (3.5-5.0) g/dL 07/31/16 07/31/16 07/31/16 Range/Units 05:55 07:08 08:40 WBC (3.8-10.6) k/uL RBC (4.30-5.90) m/uL Hgb (13.0-17.5) gm/dL Hct (39.0-53.0) % RDW (11.5-15.5) % Plt Count (150-450) k/uL Sodium (137-145) mmol/L Chloride (98-107) mmol/L BUN (9-20) mg/dL Creatinine (0.66-1.25) mg/dL Glucose (74-99) mg/dL POC Glucose (mg/dL) 116 H 118 H 128 H (75-99) mg/dL Calcium (8.4-10.2) mg/dL Ionized Calcium Lance (4.5-5.3) mg/dL Total Protein (6.3-8.2) g/dL Albumin (3.5-5.0) g/dL - Imaging and Cardiology Chest x-ray: report reviewed, image reviewed Assessment and Plan (1) Non-STEMI (non-ST elevated myocardial infarction) Status: Acute (2) Hypertension Status: Acute (3) Hyperlipidemia Status: Acute (4) End-stage renal disease on hemodialysis Status: Acute Plan: 1. Decrease aspirin to 81 mg daily. Continue Lipitor. Hold Plavix for now. 2. Bedside bronchoscopy done this morning by Dr. Santa. We will keep patient intubated, possible repeat bronchoscopy tomorrow. 3. Vent management per pulmonology. Wean O2 as tolerated. 4. Possible DC [place] later today. 5. Lopressor increased to 25 mg twice a day. Wean off Cleviprex as tolerated. 6. DDAVP per nephro. Would recommend pt is dialyzed again today, 7. Will continue to monitor labs, chest x-rays. 8. GI/DVT prophylaxis. 9. Will reapply hard boot to left lower extremity when patient extubated and ambulatory 10. More recommendations as patient progresses. Time with Patient: Greater than 30 <HabibGuero - Last Filed: 07/31/16 14:18> Objective - Vital Signs Vital signs: Vital Signs Temp 99.9 F H 07/30/16 17:00 Pulse 87 07/31/16 13:00 Resp 25 H 07/31/16 13:00 BP 127/54 07/30/16 03:32 Pulse Ox 94 L 07/31/16 13:00 Intake & Output 07/30/16 07/31/16 07/31/16 18:59 06:59 18:59 Intake Total 1284.308 916.879 518.817 Output Total 1940 439 168 Balance -655.692 477.879 350.817 Weight 87.6 kg 90.4 kg 90.4 kg Intake: IV 768 639 303 CO/CI 60 50 30 Lactated Ringers 1,000 ml 600 490 210 @ 20 mls/hr IV .Q24H [facility] Rx#:[id number] Pressure Bag 108 99 63 Intake, IV Titration 516.308 277.879 215.817 Amount ACETAMINOPHEN IV (For NPO 100 ) 1,000 mg In Empty Bag 1 bag @ 400 mls/hr IVPB Q6HR [facility] Rx#:[id number] Calcium Gluconate 2,000 100 mg In Sodium Chloride 0.9 % 100 ml @ 100 mls/hr IVPB ONCE PRN Rx#: [id number] Clevidipine Butyrate 25 53.201 100.000 44.133 mg In Empty Bag 1 bag @ 1 MG/HR 2 mls/hr IV .Q24H [facility] Rx#:[id number] Insulin Regular 100 unit 19.484 8.657 In Sodium Chloride 0.9% 100 ml @ Per Protocol IV .Q0M [facility] Rx#:[id number] Nitroglycerin-D5w Pmx 50 44.00 mg In Dextrose/Water 1 250ml.bag @ 5 MCG/MIN 1.5 mls/hr IV .Q24H [facility] Rx#: [id number] Propofol 500 mg In Empty 199.623 169.222 171.684 Bag 1 bag @ Titrate IV . Q0M R[facility] Rx#:[id number] Output: Chest Tube Drainage 320 330 140 Chest Tube Lateral Chest 180 190 70 Chest Tube Mediastinal 140 140 70 Drainage 20 25 Right Knee 20 25 Urine 100 84 28 Other 1500 Other: Voiding Method Indwelling Catheter Indwelling Catheter Indwelling Catheter ABP, PAP, CO, CI - Last Documented Arterial Blood Pressure 126/56 Pulmonary Artery Pressure 41/30 Cardiac Output 3.3 Cardiac Index 6.4 - Labs CBC & Chem 7: 07/31/16 08:45 07/31/16 08:45 Labs: Abnormal Lab Results - Last 24 Hours (Table) 07/30/16 07/30/16 07/30/16 Range/Units 14:31 15:06 16:10 WBC (3.8-10.6) k/uL RBC (4.30-5.90) m/uL Hgb (13.0-17.5) gm/dL Hct (39.0-53.0) % RDW (11.5-15.5) % Plt Count (150-450) k/uL Neutrophils # (1.3-7.7) k/uL Lymphocytes # (1.0-4.8) k/uL Sodium (137-145) mmol/L Chloride (98-107) mmol/L BUN (9-20) mg/dL Creatinine (0.66-1.25) mg/dL Glucose (74-99) mg/dL POC Glucose (mg/dL) 133 H 132 H 126 H (75-99) mg/dL Calcium (8.4-10.2) mg/dL Ionized Calcium Lance (4.5-5.3) mg/dL Magnesium (1.6-2.3) mg/dL Total Bilirubin (0.2-1.3) mg/dL Total Protein (6.3-8.2) g/dL Albumin (3.5-5.0) g/dL 07/30/16 07/30/16 07/30/16 Range/Units 17:54 19:34 20:09 WBC (3.8-10.6) k/uL RBC (4.30-5.90) m/uL Hgb (13.0-17.5) gm/dL Hct (39.0-53.0) % RDW (11.5-15.5) % Plt Count (150-450) k/uL Neutrophils # (1.3-7.7) k/uL Lymphocytes # (1.0-4.8) k/uL Sodium (137-145) mmol/L Chloride (98-107) mmol/L BUN (9-20) mg/dL Creatinine (0.66-1.25) mg/dL Glucose (74-99) mg/dL POC Glucose (mg/dL) 125 H 118 H 113 H (75-99) mg/dL Calcium (8.4-10.2) mg/dL Ionized Calcium Lance (4.5-5.3) mg/dL Magnesium (1.6-2.3) mg/dL Total Bilirubin (0.2-1.3) mg/dL Total Protein (6.3-8.2) g/dL Albumin (3.5-5.0) g/dL 07/30/16 07/30/16 07/30/16 Range/Units 20:58 22:24 23:09 WBC (3.8-10.6) k/uL RBC (4.30-5.90) m/uL Hgb (13.0-17.5) gm/dL Hct (39.0-53.0) % RDW (11.5-15.5) % Plt Count (150-450) k/uL Neutrophils # (1.3-7.7) k/uL Lymphocytes # (1.0-4.8) k/uL Sodium (137-145) mmol/L Chloride (98-107) mmol/L BUN (9-20) mg/dL Creatinine (0.66-1.25) mg/dL Glucose (74-99) mg/dL POC Glucose (mg/dL) 118 H 131 H 129 H (75-99) mg/dL Calcium (8.4-10.2) mg/dL Ionized Calcium Lance (4.5-5.3) mg/dL Magnesium (1.6-2.3) mg/dL Total Bilirubin (0.2-1.3) mg/dL Total Protein (6.3-8.2) g/dL Albumin (3.5-5.0) g/dL 07/31/16 07/31/16 07/31/16 Range/Units 00:25 00:25 00:31 WBC 12.6 H (3.8-10.6) k/uL RBC 2.52 L (4.30-5.90) m/uL Hgb 8.2 L (13.0-17.5) gm/dL Hct 23.2 L (39.0-53.0) % RDW 20.2 H (11.5-15.5) % Plt Count 120 L (150-450) k/uL Neutrophils # (1.3-7.7) k/uL Lymphocytes # (1.0-4.8) k/uL Sodium 133 L (137-145) mmol/L Chloride 96 L (98-107) mmol/L BUN 28 H (9-20) mg/dL Creatinine 4.00 H (0.66-1.25) mg/dL Glucose 106 H (74-99) mg/dL POC Glucose (mg/dL) 114 H (75-99) mg/dL Calcium 8.2 L (8.4-10.2) mg/dL Ionized Calcium Lance 4.4 L (4.5-5.3) mg/dL Magnesium (1.6-2.3) mg/dL Total Bilirubin (0.2-1.3) mg/dL Total Protein 5.3 L (6.3-8.2) g/dL Albumin 3.3 L (3.5-5.0) g/dL 07/31/16 07/31/16 07/31/16 Range/Units 01:07 01:58 04:28 WBC (3.8-10.6) k/uL RBC (4.30-5.90) m/uL Hgb (13.0-17.5) gm/dL Hct (39.0-53.0) % RDW (11.5-15.5) % Plt Count (150-450) k/uL Neutrophils # (1.3-7.7) k/uL Lymphocytes # (1.0-4.8) k/uL Sodium (137-145) mmol/L Chloride (98-107) mmol/L BUN (9-20) mg/dL Creatinine (0.66-1.25) mg/dL Glucose (74-99) mg/dL POC Glucose (mg/dL) 118 H 130 H 112 H (75-99) mg/dL Calcium (8.4-10.2) mg/dL Ionized Calcium Lance (4.5-5.3) mg/dL Magnesium (1.6-2.3) mg/dL Total Bilirubin (0.2-1.3) mg/dL Total Protein (6.3-8.2) g/dL Albumin (3.5-5.0) g/dL 07/31/16 07/31/16 07/31/16 Range/Units 05:19 05:55 07:08 WBC (3.8-10.6) k/uL RBC (4.30-5.90) m/uL Hgb (13.0-17.5) gm/dL Hct (39.0-53.0) % RDW (11.5-15.5) % Plt Count (150-450) k/uL Neutrophils # (1.3-7.7) k/uL Lymphocytes # (1.0-4.8) k/uL Sodium (137-145) mmol/L Chloride (98-107) mmol/L BUN (9-20) mg/dL Creatinine (0.66-1.25) mg/dL Glucose (74-99) mg/dL POC Glucose (mg/dL) 111 H 116 H 118 H (75-99) mg/dL Calcium (8.4-10.2) mg/dL Ionized Calcium Lance (4.5-5.3) mg/dL Magnesium (1.6-2.3) mg/dL Total Bilirubin (0.2-1.3) mg/dL Total Protein (6.3-8.2) g/dL Albumin (3.5-5.0) g/dL 07/31/16 07/31/16 07/31/16 Range/Units 08:40 08:45 08:45 WBC 12.3 H (3.8-10.6) k/uL RBC 2.58 L (4.30-5.90) m/uL Hgb 7.9 L (13.0-17.5) gm/dL Hct 24.5 L (39.0-53.0) % RDW 20.2 H (11.5-15.5) % Plt Count 114 L (150-450) k/uL Neutrophils # 11.0 H (1.3-7.7) k/uL Lymphocytes # 0.4 L (1.0-4.8) k/uL Sodium 133 L (137-145) mmol/L Chloride 97 L (98-107) mmol/L BUN 31 H (9-20) mg/dL Creatinine 4.29 H (0.66-1.25) mg/dL Glucose 122 H (74-99) mg/dL POC Glucose (mg/dL) 128 H (75-99) mg/dL Calcium 8.2 L (8.4-10.2) mg/dL Ionized Calcium Lance 4.4 L (4.5-5.3) mg/dL Magnesium 2.5 H (1.6-2.3) mg/dL Total Bilirubin 1.4 H (0.2-1.3) mg/dL Total Protein 5.5 L (6.3-8.2) g/dL Albumin 3.2 L (3.5-5.0) g/dL 07/31/16 07/31/16 Range/Units 10:12 12:07 WBC (3.8-10.6) k/uL RBC (4.30-5.90) m/uL Hgb (13.0-17.5) gm/dL Hct (39.0-53.0) % RDW (11.5-15.5) % Plt Count (150-450) k/uL Neutrophils # (1.3-7.7) k/uL Lymphocytes # (1.0-4.8) k/uL Sodium (137-145) mmol/L Chloride (98-107) mmol/L BUN (9-20) mg/dL Creatinine (0.66-1.25) mg/dL Glucose (74-99) mg/dL POC Glucose (mg/dL) 123 H 103 H (75-99) mg/dL Calcium (8.4-10.2) mg/dL Ionized Calcium Lance (4.5-5.3) mg/dL Magnesium (1.6-2.3) mg/dL Total Bilirubin (0.2-1.3) mg/dL Total Protein (6.3-8.2) g/dL Albumin (3.5-5.0) g/dL Assessment and Plan Plan: The patient was seen and examined. Agree with the above assessment and plan. He is currently sedated on high-dose propofol. Repeat bronchoscopy was performed today by Dr. Santa which revealed aspiration of old blood. His chest x-ray does appear to be improved since yesterday. He is currently on 10 of PEEP and 80% FiO2. We will wean the FiO2 as tolerated. The plan would be for repeat bronchoscopy in the morning. His blood pressure is better controlled and he is currently off Cleviprex. We will remove the [place]-Dylon catheter after dialysis this afternoon.
--- NOTE | 2016-07-31 12:38 | P.VSCSTY ---
Greater Saphenous Vein Mapping This is bilateral lower extremity greater saphenous vein mapping. Date of service 07/25/2016 Vein quality and ultrasound appearance normal. Vein size groin right 4.0 x 3.8 groin left 5.9 x 6.5 High thigh right 3.1 x 3.0 high thigh left 4.0 x 3.4 Mid thigh right 2.6 x 2.8 mid thigh left 3.3 x 3.1 Above-knee right 3.1 x 3.1 above- knee left 3.4 x 3.2 Below knee right 2.9 x 3.4 below-knee left [] Mid calf right 2.4 x 1.7 mid calf left [] Ankle right 1.9 x 1.6 ankle left [] Impression usable bilateral greater saphenous vein. The right is somewhat small at mid calf and below. The left lower leg is not visualized secondary to casts. Both thigh veins are excellent.
--- NOTE | 2016-07-31 14:04 | PN ---
Patient is seen for followup for end-stage renal disease. He remains on the vent, sedated. Diprivan was increased this morning and patient was noted to have bleeding in his left lung on bronchoscopy, which was done this morning. Bronchoscopy is planned again for tomorrow. In the meantime, FiO2 is at about 80%. Patient has not required any pressors. Hemoglobin is at about 7.9 g/dL. Platelet count was slightly low at 114. This is better than 86 and 99 from day before yesterday. On examination, patient is sedated. He is on the vent. Blood pressure 116/51, heart rate 88 per minute. He is afebrile. Examination of the heart, S1 and S2. Examination of the lungs, bilateral breath sounds are heard. Decreased breath sounds on the left side. Chest tubes are noted. Abdomen is soft. Both extremities are wrapped. There is a drain noted in his right lower extremity. Labs are sodium 133, potassium 4.1. Hemoglobin is 7.9 g/dL. ASSESSMENT: 1. End-stage renal disease on hemodialysis. Patient was dialyzed yesterday, he tolerated his treatment fairly well. He had about 1.5 L of ultrafiltration. We will plan to dialyze him again today. 2. Anemia with evidence of had intra-alveolar hemorrhage on the left side, scheduled for repeat bronchoscopy tomorrow. I will give a dose of DDAVP to help with the bleeding. 3. Status post two-vessel coronary artery bypass surgery. 4. Thrombocytopenia, currently improving. PLAN: Repeat short treatment of hemodialysis today. Give one dose of DDAVP, goal UF of about 1.5 L again today and we will dialyze the patient again tomorrow for his regular scheduled treatment.
[2016-07-31 14:22] LABS: Glucose,Whole Blood 101 mg/dL (75-99)
--- NOTE | 2016-07-31 14:53 | XR ---
EXAMINATION TYPE: XR chest 1V portable DATE OF EXAM: 07/31/2016 2:48 PM COMPARISON: 07/31/2016 HISTORY: Postop TECHNIQUE: Single frontal view of the chest is obtained. FINDINGS: ET and NG tube are stable. Mediastinal drain and chest tubes in stable. No sizable pneumot horax. [place]-Dylon catheter stable tip overlying the proximal pulmonary outflow tract. Bilateral pleural effusion and consolidation stable. Postsurgical changes noted. IMPRESSION: 1. Stable bilateral pleural effusion and consolidation. Aeration on the left is stable relative to th e previous exam. 2. Postoperative change
[2016-07-31] MEDS: LACTATED RINGERS 1,000 ML IV SCH (15:10)
[2016-07-31 16:50] LABS: Glucose,Whole Blood 75 mg/dL (75-99)
--- NOTE | 2016-07-31 17:31 | PCN ---
DATE OF PROCEDURE: PROCEDURE PERFORMED: Bronchoscopy and extraction of blood clots and mucous plugs from the left lower lobe and left main stem bronchus. PREOPERATIVE DIAGNOSIS: Left lung collapse secondary to plugging by blood clots in the left main stem bronchus. POSTOPERATIVE DIAGNOSIS: Left lung collapse secondary to plugging by blood clots in the left main stem bronchus. Anesthesia used: Patient was already on propofol drip. He received 4 mg of morphine sulfate 10 mg of Nimbex prior to the procedure. DESCRIPTION OF PROCEDURE: Patient was in a supine position, adapter was applied to the endotracheal tube and this was already connected to mechanical ventilation. We monitored his O2 saturation throughout the whole procedure, we also monitored cardiac rhythm, and blood pressure was continuously monitored. After adequate sedation, the bronchoscope was inserted through the adapter down to the distal end of the endotracheal tube, and I was able to visualize the vinod, which was sharp, the left mainstem bronchus was examined and it was mostly full of organized blood clots involving mostly the left lower lobe bronchus and lingula bronchus. In the left upper lobe bronchus was actually open and patent. Lavages and suctioning of these clots was accomplished, and there was at least 70% improvement compared to baseline. The procedure was well tolerated. No evidence of any immediate complications. The procedure will likely be repeated again in the next 24 hours if the left lung continues to show any collapse. Discussed findings with Dr. Alcaraz over the phone.
[2016-07-31] MEDS ORDERED: ATROPINE SULFATE 0.1 MG/ML 10ML SYRINGE ONE (17:41)
[2016-07-31 18:45] LABS: Glucose,Whole Blood 86 mg/dL (75-99)
[2016-07-31 20:08] LABS: Glucose,Whole Blood 83 mg/dL (75-99)
[2016-07-31] MEDS: SENNOSIDES-DOCUSATE SODIUM 1 EACH TAB PO SCH (21:10)
--- NOTE | 2016-07-31 22:13 | PN ---
Mr. Xie is status post aortocoronary bypass surgery. He had a lot of respiratory issues yesterday. He was bronch'd both yesterday and today, remains on a ventilator. He remains in sinus rhythm, hemodynamically stable, not on ( ) drips. S1, S2 heard normally. Heart sounds heard distantly. Lungs reveal diminished air entry with rhonchi bilaterally. Abdomen and lower extremity exam unchanged. Patient has significant comorbid conditions, including end-stage renal disease, dialysis and also respiratory issues. For now I recommend that we continue current management, and I will await further input from Dr. Santa, who is seeing him from a critical care standpoint. Prognosis remains guarded.
--- NOTE | 2016-07-31 22:24 | P.PN ---
Subjective Principal diagnosis: cough This is a 80-year-old male known to infectious disease service as he has been treated for infection to his shunt on his left arm before as well as ulceration to his left heel. Patient states that he presented to [facility] because he was initially having epistaxis. This was on Friday. The bleeding was controlled and he was discharged home. He then returned on Friday as he woke up in the morning at 2 AM with a cough and shortness of breath that had been going on but continued to worsen. Patient was diagnosed with a non-ST elevated myocardial infarction and was transferred to [facility] on July 25 for heart catheterization that found two-vessel disease of the proximal LAD and proximal RCA with mild aortic stenosis. He has been evaluated by cardiothoracic surgery and is scheduled for CABG on June 28. Patient does have history of end-stage renal disease on hemodialysis Friday and Friday and is followed by Dr. Fernandez. He denies any problems with his dialysis AV fistula in his left arm. [facility] under the care of Dr. Carey. He has a total contact cast to the left lower extremity which is scheduled to be removed today. Regarding his epistaxis, patient was seen by Dr. Chen on underwent flexible nasal endoscopy finding a right anterior septal ulcer. Dr. Lucas is following from pulmonary medicine. Upon review of his previous wound cultures, he does have history of MRSA. Patient does have history of rheumatoid arthritis on prednisone only. 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 He has been evaluated by interventional radiology and repairs been performed. He is doing well and folow up shows resolution of the pseudoaneurysm The cardiothoracic surgeries occurred. He did well but had some bleeding into his lungs. A bronchoscopy was done yesterday repeated today to remove blood clots. Cultures and biopsies in process. Nothing positive so far. He is somewhat hypertensive not hypotensive and did have dialysis today Objective - Vital Signs Vital signs: Vital Signs Temp 99.9 F H 07/30/16 17:00 Pulse 87 07/31/16 20:22 Resp 19 07/31/16 19:00 BP 127/54 07/30/16 03:32 Pulse Ox 100 07/31/16 19:00 Intake & Output 04/04/0607/31/16 08/01/16 06:59 18:59 06:59 Intake Total 916.879 854.817 79 Output Total 439 228 Balance 477.879 626.817 79 Weight 90.4 kg 90.4 kg Intake: IV 639 539 29 CO/CI 50 60 Lactated Ringers 1,000 ml 490 290 20 @ 20 mls/hr IV .Q24H RINA Rx#:[id number] Pressure Bag 99 189 9 Intake, IV Titration 277.879 315.817 50 Amount Clevidipine Butyrate 25 100.000 44.133 mg In Empty Bag 1 bag @ 1 MG/HR 2 mls/hr IV .Q24H RINA Rx#:[id number] Insulin Regular 100 unit 8.657 In Sodium Chloride 0.9% 100 ml @ Per Protocol IV .Q0M RINA Rx#:[id number] Propofol 500 mg In Empty 169.222 271.684 50 Bag 1 bag @ Titrate IV . Q0M RINA Rx#:[id number] Output: Chest Tube Drainage 330 180 Chest Tube Lateral Chest 190 100 Chest Tube Mediastinal 140 80 Drainage 25 Right Knee 25 Urine 84 48 Other: Voiding Method Indwelling Catheter Indwelling Catheter ABP, PAP, CO, CI - Last Documented Arterial Blood Pressure 102/51 Pulmonary Artery Pressure 40/30 Cardiac Output 6.4 Cardiac Index 3.3 - Exam Gen: This is a 80-year-old male. Postoperative, intubated sedated and mechanically ventilated HEENT: Head is atraumatic, normocephalic. Pupils equal, round. Sclerae is anicteric. Conjunctiva pink. Mucous members of the mouth are moist. No thrush noted. NECK: Supple. No JVD. No lymphadenopathy. No thyromegaly. LUNGS: Coarse crackles throughout the lung cotto HEART: Regular rate and rhythm. No murmur. ABDOMEN: Soft. Bowel sounds are present. No masses. No tenderness. EXTREMITIES: No pedal edema. No calf tenderness. Total contact cast was removed. The ulceration to the left heel is clean without significant purulence noted drainage. Silver dressing is in place.fistula left arm intact Dialysis graft of the left arm is intact. NEUROLOGICAL: Sedated but responding - Labs CBC & Chem 7: 07/31/16 08:45 07/31/16 08:45 Labs: Abnormal Lab Results - Last 24 Hours (Table) 07/30/16 07/30/16 07/31/16 Range/Units 22:24 23:09 00:25 WBC 12.6 H (3.8-10.6) k/uL RBC 2.52 L (4.30-5.90) m/uL Hgb 8.2 L (13.0-17.5) gm/dL Hct 23.2 L (39.0-53.0) % RDW 20.2 H (11.5-15.5) % Plt Count 120 L (150-450) k/uL Neutrophils # (1.3-7.7) k/uL Lymphocytes # (1.0-4.8) k/uL Sodium (137-145) mmol/L Chloride (98-107) mmol/L BUN (9-20) mg/dL Creatinine (0.66-1.25) mg/dL Glucose (74-99) mg/dL POC Glucose (mg/dL) 131 H 129 H (75-99) mg/dL Calcium (8.4-10.2) mg/dL Ionized Calcium Lance (4.5-5.3) mg/dL Magnesium (1.6-2.3) mg/dL Total Bilirubin (0.2-1.3) mg/dL Total Protein (6.3-8.2) g/dL Albumin (3.5-5.0) g/dL 07/31/16 07/31/16 07/31/16 Range/Units 00:25 00:31 01:07 WBC (3.8-10.6) k/uL RBC (4.30-5.90) m/uL Hgb (13.0-17.5) gm/dL Hct (39.0-53.0) % RDW (11.5-15.5) % Plt Count (150-450) k/uL Neutrophils # (1.3-7.7) k/uL Lymphocytes # (1.0-4.8) k/uL Sodium 133 L (137-145) mmol/L Chloride 96 L (98-107) mmol/L BUN 28 H (9-20) mg/dL Creatinine 4.00 H (0.66-1.25) mg/dL Glucose 106 H (74-99) mg/dL POC Glucose (mg/dL) 114 H 118 H (75-99) mg/dL Calcium 8.2 L (8.4-10.2) mg/dL Ionized Calcium Lance 4.4 L (4.5-5.3) mg/dL Magnesium (1.6-2.3) mg/dL Total Bilirubin (0.2-1.3) mg/dL Total Protein 5.3 L (6.3-8.2) g/dL Albumin 3.3 L (3.5-5.0) g/dL 07/31/16 07/31/16 07/31/16 Range/Units 01:58 04:28 05:19 WBC (3.8-10.6) k/uL RBC (4.30-5.90) m/uL Hgb (13.0-17.5) gm/dL Hct (39.0-53.0) % RDW (11.5-15.5) % Plt Count (150-450) k/uL Neutrophils # (1.3-7.7) k/uL Lymphocytes # (1.0-4.8) k/uL Sodium (137-145) mmol/L Chloride (98-107) mmol/L BUN (9-20) mg/dL Creatinine (0.66-1.25) mg/dL Glucose (74-99) mg/dL POC Glucose (mg/dL) 130 H 112 H 111 H (75-99) mg/dL Calcium (8.4-10.2) mg/dL Ionized Calcium Lance (4.5-5.3) mg/dL Magnesium (1.6-2.3) mg/dL Total Bilirubin (0.2-1.3) mg/dL Total Protein (6.3-8.2) g/dL Albumin (3.5-5.0) g/dL 07/31/16 07/31/16 07/31/16 Range/Units 05:55 07:08 08:40 WBC (3.8-10.6) k/uL RBC (4.30-5.90) m/uL Hgb (13.0-17.5) gm/dL Hct (39.0-53.0) % RDW (11.5-15.5) % Plt Count (150-450) k/uL Neutrophils # (1.3-7.7) k/uL Lymphocytes # (1.0-4.8) k/uL Sodium (137-145) mmol/L Chloride (98-107) mmol/L BUN (9-20) mg/dL Creatinine (0.66-1.25) mg/dL Glucose (74-99) mg/dL POC Glucose (mg/dL) 116 H 118 H 128 H (75-99) mg/dL Calcium (8.4-10.2) mg/dL Ionized Calcium Lance (4.5-5.3) mg/dL Magnesium (1.6-2.3) mg/dL Total Bilirubin (0.2-1.3) mg/dL Total Protein (6.3-8.2) g/dL Albumin (3.5-5.0) g/dL 07/31/16 07/31/16 07/31/16 Range/Units 08:45 08:45 10:12 WBC 12.3 H (3.8-10.6) k/uL RBC 2.58 L (4.30-5.90) m/uL Hgb 7.9 L (13.0-17.5) gm/dL Hct 24.5 L (39.0-53.0) % RDW 20.2 H (11.5-15.5) % Plt Count 114 L (150-450) k/uL Neutrophils # 11.0 H (1.3-7.7) k/uL Lymphocytes # 0.4 L (1.0-4.8) k/uL Sodium 133 L (137-145) mmol/L Chloride 97 L (98-107) mmol/L BUN 31 H (9-20) mg/dL Creatinine 4.29 H (0.66-1.25) mg/dL Glucose 122 H (74-99) mg/dL POC Glucose (mg/dL) 123 H (75-99) mg/dL Calcium 8.2 L (8.4-10.2) mg/dL Ionized Calcium Lance 4.4 L (4.5-5.3) mg/dL Magnesium 2.5 H (1.6-2.3) mg/dL Total Bilirubin 1.4 H (0.2-1.3) mg/dL Total Protein 5.5 L (6.3-8.2) g/dL Albumin 3.2 L (3.5-5.0) g/dL 07/31/16 07/31/16 Range/Units 12:07 14:20 WBC (3.8-10.6) k/uL RBC (4.30-5.90) m/uL Hgb (13.0-17.5) gm/dL Hct (39.0-53.0) % RDW (11.5-15.5) % Plt Count (150-450) k/uL Neutrophils # (1.3-7.7) k/uL Lymphocytes # (1.0-4.8) k/uL Sodium (137-145) mmol/L Chloride (98-107) mmol/L BUN (9-20) mg/dL Creatinine (0.66-1.25) mg/dL Glucose (74-99) mg/dL POC Glucose (mg/dL) 103 H 101 H (75-99) mg/dL Calcium (8.4-10.2) mg/dL Ionized Calcium Lance (4.5-5.3) mg/dL Magnesium (1.6-2.3) mg/dL Total Bilirubin (0.2-1.3) mg/dL Total Protein (6.3-8.2) g/dL Albumin (3.5-5.0) g/dL Laboratory Results WBC 12.3 k/uL (3.8-10.6) H 07/31/16 08:45 RBC 2.58 m/uL (4.30-5.90) L 07/31/16 08:45 Hgb 7.9 gm/dL (13.0-17.5) L 07/31/16 08:45 Hct 24.5 % (39.0-53.0) L 07/31/16 08:45 MCV 94.8 fL (80.0-100.0) 07/31/16 08:45 MCH 30.5 pg (25.0-35.0) 07/31/16 08:45 MCHC 32.2 g/dL (31.0-37.0) 07/31/16 08:45 RDW 20.2 % (11.5-15.5) H 07/31/16 08:45 Plt Count 114 k/uL (150-450) L 07/31/16 08:45 Neutrophils % 89 % 07/31/16 08:45 Neutrophils % (Manual) 81.0 % 07/29/16 14:10 Band Neutrophils % 4.0 % 07/29/16 14:10 Lymphocytes % 3 % 07/31/16 08:45 Lymphocytes % (Manual) 9.0 % 07/29/16 14:10 Monocytes % 3 % 07/31/16 08:45 Monocytes % (Manual) 2.0 % 07/29/16 14:10 Eosinophils % 3 % 07/31/16 08:45 Eosinophils % (Manual) 4.0 % 07/29/16 14:10 Basophils % 0 % 07/31/16 08:45 Myelocytes % 0.5 % 07/26/16 06:10 Neutrophils # 11.0 k/uL (1.3-7.7) H 07/31/16 08:45 Neutrophils # (Manual) 12.2 k/uL (1.3-7.7) H 07/29/16 14:10 Lymphocytes # 0.4 k/uL (1.0-4.8) L 07/31/16 08:45 Lymphocytes # (Manual) 1.3 k/uL (1.0-4.8) 07/29/16 14:10 Monocytes # 0.4 k/uL (0-1.0) 07/31/16 08:45 Monocytes # (Manual) 0.3 k/uL (0-1.0) 07/29/16 14:10 Eosinophils # 0.4 k/uL (0-0.7) 07/31/16 08:45 Eosinophils # (Manual) 0.6 k/uL (0-0.7) 07/29/16 14:10 Basophils # 0.0 k/uL (0-0.2) 07/31/16 08:45 Nucleated RBCs 0 /100 WBC (0-0) 07/29/16 14:10 Manual Slide Review Performed 07/26/16 06:10 Polychromasia Present 07/29/16 14:10 Hypochromasia Slight 07/31/16 08:45 Poikilocytosis Slight 07/31/16 00:25 Poikilocytosis (manual Present 07/26/16 06:10 Anisocytosis Moderate 07/31/16 08:45 Macrocytosis Slight 07/31/16 08:45 PT 11.3 sec (9.0-12.0) 07/31/16 08:45 INR 1.1 (<1.1) 07/31/16 08:45 APTT 29.5 sec (22.0-30.0) 07/29/16 17:20 Fibrinogen 206 mg/dL (200-500) 07/29/16 14:10 Sample Site [place] 07/30/16 07:29 ABG pH 7.39 (7.35-7.45) 07/30/16 07:29 ABG pCO2 36 mmHg (35-45) 07/30/16 07:29 ABG pO2 69 mmHg (83-108) L 07/30/16 07:29 ABG HCO3 21 mmol/L (21-25) 07/30/16 07:29 ABG Total CO2 23 mmol/L (19-24) 07/30/16 07:29 ABG O2 Saturation 93.0 % (94-97) L 07/30/16 07:29 ABG Base Excess -2.9 mmol/L 07/30/16 07:29 FiO2 60 % 07/30/16 07:29 Sodium 133 mmol/L (137-145) L 07/31/16 08:45 Potassium 4.1 mmol/L (3.5-5.1) 07/31/16 08:45 Chloride 97 mmol/L (98-107) L 07/31/16 08:45 Carbon Dioxide 23 mmol/L (22-30) 07/31/16 08:45 Anion Gap 13 mmol/L 07/31/16 08:45 BUN 31 mg/dL (9-20) H 07/31/16 08:45 Creatinine 4.29 mg/dL (0.66-1.25) H 07/31/16 08:45 Est GFR (MDRD) Af Amer 16 (>60 ml/min/1.73 sqM) 07/31/16 08:45 Est GFR (MDRD) Non-Af 13 (>60 ml/min/1.73 sqM) 07/31/16 08:45 Glucose 122 mg/dL (74-99) H 07/31/16 08:45 POC Glucose (mg/dL) 83 mg/dL (75-99) 07/31/16 20:05 POC Glu [employer] ID 07/31/16 20:[address] Glu mg/dL 111 mg/dL 07/25/16 06:21 Hemoglobin A1c 5.5 % (4.2-6.1) 07/25/16 06:21 Calcium 8.2 mg/dL (8.4-10.2) L 07/31/16 08:45 Ionized Calcium Lance 4.4 mg/dL (4.5-5.3) L 07/31/16 08:45 Phosphorus 4.4 mg/dL (2.5-4.5) 07/31/16 00:25 Magnesium 2.5 mg/dL (1.6-2.3) H 07/31/16 08:45 Iron 30 ug/dL (49-181) L 07/27/16 05:54 TIBC 273 ug/dL (261-462) 07/27/16 05:54 % Saturation 11.0 % (20-50) L 07/27/16 05:54 Total Bilirubin 1.4 mg/dL (0.2-1.3) H 07/31/16 08:45 AST 41 U/L (17-59) 07/31/16 08:45 ALT 34 U/L (21-72) 07/31/16 08:45 Alkaline Phosphatase 61 U/L (38-126) 07/31/16 08:45 NT-Pro-B Natriuret Pep 34822 pg/mL 07/25/16 06:21 Total Protein 5.5 g/dL (6.3-8.2) L 07/31/16 08:45 Albumin 3.2 g/dL (3.5-5.0) L 07/31/16 08:45 Triglycerides 78 mg/dL (<150) 07/26/16 06:10 Cholesterol 143 mg/dL (<200) 07/26/16 06:10 LDL Cholesterol, Calc 72 mg/dL (0-99) 07/26/16 06:10 HDL Cholesterol 55 mg/dL (40-60) 07/26/16 06:10 TSH 3.000 mIU/L (0.465-4.680) 07/26/16 06:10 Urine Color Light Yellow 07/25/16 20:46 Urine Appearance Clear (Clear) 07/25/16 20:46 Urine pH 8.0 (5.0-8.0) 07/25/16 20:46 Ur Specific [place] 1.007 (1.001-1.035) 07/25/16 20:46 Urine Protein 2+ (Negative) H 07/25/16 20:46 Urine Glucose (UA) 1+ (Negative) H 07/25/16 20:46 Urine Ketones Negative (Negative) 07/25/16 20:46 Urine Blood Trace (Negative) H 07/25/16 20:46 Urine Nitrite Negative (Negative) 07/25/16 20:46 Urine Bilirubin Negative (Negative) 07/25/16 20:46 Urine Urobilinogen <2.0 mg/dL (<2.0) 07/25/16 20:46 Ur Leukocyte Esterase Negative (Negative) 07/25/16 20:46 Urine RBC <1 /hpf (0-5) 07/25/16 20:46 Urine WBC <1 /hpf (0-5) 07/25/16 20:46 Ur Squamous Epith Cells <1 /hpf (0-4) 07/25/16 20:46 Urine Bacteria Rare /hpf (None) H 07/25/16 20:46 Stool Occult Blood Positive (Negative) 07/25/16 20:46 Random Vancomycin 9.5 ug/mL 07/30/16 06:00 Hepatitis A IgM Ab NEGATIVE 07/26/16 06:10 Hep Bs Antigen Negative 07/26/16 06:10 Hep B Core IgM Ab NEGATIVE 07/26/16 06:10 Hep C IgG Ab Negative (Negative) 07/26/16 06:10 Blood Type B Positive 07/28/16 06:26 Blood Type Confirm B Positive 07/27/16 05:59 Blood Type Recheck CABO Indicated 07/28/16 06:26 Antibody Screen NEGATIVE 07/28/16 06:26 Crossmatch See Detail 07/28/16 06:26 Transfuse Plasma 07/29/2016 07/29/16 12:59 Transfuse Platelets 07/29/2016 07/29/16 13:00 Spec Expiration Date 07/31/2016 71707/28/16 06:26 Microbiology 07/25/16 20:46 Urine,Voided Urine Culture - Final Assessment and Plan (1) Non-STEMI (non-ST elevated myocardial infarction) Status: Acute (2) Diabetic foot ulcer associated with type 2 diabetes mellitus Narrative/Plan: The total contact cast has now been removed by the team from the wound center. Local wound care has been applied to the ulceration. He is appropriately anxious for the upcoming cardiovascular surgery. The family is present. The family is reassured that the cardiac thoracic surgeon, Dr. Alcaraz is an excellent surgeon. We will proceed with surgery, Friday. Is having ultrasound of his right groin to make sure is not a pseudoaneurysm. Local wound care with the silver product to the foot ulcer is being utilized. It is about an infected ulceration and needs ongoing local wound care. The ulceration is not a contraindication for this procedure of coronary artery bypass grafting. We will monitor. Had pseudoaneurysm repair and other than discomfort is doing well As noted will have his cardiovascular surgery tomorrow. He is assured to the best of the ability. Case is discussed with the cardiothoracic team he received vancomycin for prophylaxis. Continue local wound care to the ulceration to his heel and offloaded. Local wound care as ordered with rena every Friday. We'll follow the lung samples for evidence of infection Status: Acute
[2016-07-31 23:16] LABS: Glucose,Whole Blood 90 mg/dL (75-99)
[2016-08-01 00:02] LABS: Glucose,Whole Blood 93 mg/dL (75-99)
[2016-08-01] MEDS: MUPIROCIN 2% OINT 22 GM TUBE NASAL SCH ×3 (00:51→20:52)
[2016-08-01] MEDS: HEPARIN SODIUM,PORCINE 5,000 UNIT/ML 1 ML VIAL SQ SCH ×3 (00:52→15:11)
[2016-08-01] MEDS: PROPOFOL 500 MG in EMPTY BAG 1 BAG IV SCH ×12 (00:58→23:23)
[2016-08-01 02:12] LABS: Glucose,Whole Blood 94 mg/dL (75-99)
[2016-08-01] MEDS: IPRATROPIUM-ALBUTEROL 3 ML NEB INHALATION SCH ×6 (03:22→23:44)
[2016-08-01 05:34] LABS: Anisocytosis Slight; Basophils % (A) 0 %; CH 30.2; CHCM 32.9; Eosinophils # (A) 0.3 k/uL (0-0.7); Eosinophils % (A) 4 %; HCT 21.4 % (39.0-53.0); HDW 3.33; HGB 7.3 gm/dL (13.0-17.5); Luc # (Auto) 0.14; Luc % (Auto) 2; Lymphocytes # (A) 0.3 k/uL (1.0-4.8); Lymphocytes % (A) 3 %; MCH 31.7 pg (25.0-35.0); MCHC 34.3 g/dL (31.0-37.0); MCV 92.5 fL (80.0-100.0); Macrocytosis Slight; Mean Platelet Volume 7.9; Monocytes # (A) 0.3 k/uL (0-1.0); Monocytes % (A) 3 %; Neutrophils # (A) 7.9 k/uL (1.3-7.7); Neutrophils % (A) 88 %; RBC 2.31 m/uL (4.30-5.90); RDW 19.7 % (11.5-15.5); WBC 8.9 k/uL (3.8-10.6)
[2016-08-01 05:41] LABS: Ionized Calcium 4.4 mg/dL (4.5-5.3)
[2016-08-01 05:52] LABS: Calcium 8.1 mg/dL (8.4-10.2); Potassium 3.9 mmol/L (3.5-5.1); Total Bilirubin 1.6 mg/dL (0.2-1.3); Total Protein 4.9 g/dL (6.3-8.2)
[2016-08-01 06:11] LABS: INR 1.1 (<1.1); Partial Thromboplastin Time 35.6 sec (22.0-30.0); Prothrombin Time 11.1 sec (9.0-12.0)
--- NOTE | 2016-08-01 07:03 | XR ---
EXAMINATION TYPE: XR chest 1V portable DATE OF EXAM: 08/01/2016 6:50 AM COMPARISON: NONE HISTORY: Postop TECHNIQUE: Single frontal view of the chest is obtained. FINDINGS: ET and NG tube are stable. Mediastinal drain and chest tubes in stable. No sizable pneumot horax. Matheson-Dylon catheter has been removed. Rib deformities noted.. Bilateral pleural effusion and consolidation stable. Postsurgical changes not ed. Hyperinflation suggests COPD. IMPRESSION: 1. Stable bilateral pleural effusion and consolidation. Aeration on the left is stable relative to th e previous exam. 2. Postoperative change
[2016-08-01] MEDS: METOPROLOL TARTRATE 25 MG TAB PO SCH ×2 (08:25→20:52)
[2016-08-01] MEDS: CHLORHEXIDINE GLUCONATE 15 ML CUP MUCOUS MEM SCH ×2 (08:26→20:52)
[2016-08-01] MEDS: ATORVASTATIN 40 MG TAB PO SCH (08:29)
[2016-08-01] MEDS: PANTOPRAZOLE 40 MG/10 ML VIAL IVP SCH (08:29)
[2016-08-01] MEDS: ASPIRIN 81 MG CHEW PO SCH (08:29)
[2016-08-01 10:17] LABS: Glucose,Whole Blood 85 mg/dL (75-99)
--- NOTE | 2016-08-01 13:27 | P.PN ---
Subjective Principal diagnosis: Status post CABG postoperative day # 3 This is a 80-year-old white male with history of multiple medical problems including hypertension, previous ischemic heart disease and mild aortic stenosis. End-stage renal disease on hemodialysis. History of rheumatoid arthritis, patient was admitted recently with chest pain, cardiac enzymes were suggestive of non-ST elevation myocardial infarction, cardiac cath showed significant coronary artery disease with critical lesion in the proximal LAD also the proximal RCA. Today, the patient underwent myocardial revascularization by Dr. Alcaraz, and he was placed on mechanical ventilation postoperatively, seen in the ICU for consultation and postoperative ventilator management. Presently, the patient is on 100% FiO2, assist control rate of 12, PEEP of 5, and tidal volume of 500. Initial ABG showed a pO2 of 364, pCO2 of 42 pH of 7.32. However shortly after patient was placed on a 50% FiO2, and he was noted to have significant drop in his saturation based on pulse oximetry. Repeat ABG showed worsening oxygenation with a pO2 of 46 pCO2 of 50 and pH of 7.28. Hence placed back on 100%, increased his rate up to 16, and increased the PEEP to 10. Follow-up chest x-ray showed worsening pulmonary edema, remind you patient is a hemodialysis patient. Follow-up ABG is pending. Patient is presently fully sedated, and in no distress. Reevaluated today on 07/30/2016, patient is status post off pump double coronary artery bypass grafting using L REJI to LAD, and reverse saphenous vein graft from the aorta to the posterior descending artery.patient remains on mechanical ventilation, chest x-ray is showing worsening picture of pulmonary edema, however the possibility of bleeding into the left midlung area and left lower lobe is not entirely ruled out there seems to be a worsening consolidation in the area of the left midlung and left lower lobe, hence may consider bronchoscopy on this patient. In the meantime, patient is being ultrafiltrate it today, and hopefully that will make a significant improvement on the chest x- ray appearance, and may help oxygenation.labs were reviewed, WBC count is 9.8 hemoglobin is 7.6 it was 6.5 earlier today,patient received a total of 5 units of packed RBCs since admission, 2 units of fresh frozen plasma, and 3 units of platelets. Reevaluated today on 07/31/2016, patient underwent another bronchoscopy today although his chest x-ray was showing some improvement compared to the chest x- ray yesterday after bronchoscopy. There was evidence of more aeration of the left upper lobe and lingula on the chest x-ray today. Today I was able to clear plugs from the left lower lobe bronchus, and from the lingular bronchus. Throughout the procedure there was some oozing of blood, and the mucosa of the bronchial tube was noted to be very fragile and bled easily. No biopsies were done. But suctioning and lavages of the left lower lobe and lingula was performed. In the meantime the patient remains on mechanical ventilations, today I increased his tidal volume up to 550 kept him on assist control rate of 16 I increased the flow rates up to 70, and FiO2 will be titrated down from 100 % during the bronchoscopy to as low as 50% as tolerated, and PEEP remains at 10 for the time being. Labs were reviewed, hemoglobin is 7.9 platelets are 114. Electrolytes were reviewed BUN is 31 creatinine is 4.29. On 08/01/2016, patient remains on mechanical ventilation, we were able earlier today to cut down the FiO2 to 50%, and PEEP was down to as low as 5%. However as the hemodialysis was started, patient began to desaturate, hence went back to a PEEP of 8. And increase his FiO2 to 55%. Patient is now undergoing hemodialysis, his chest x-ray is showing definite improvement, hence no need for bronchoscopy and evaluation of the left lung today. Still suctioning some bloody secretions from the endotracheal tube by respiratory. Labs were reviewed , hemoglobin is 7.3 today. Platelets are 101, INR is 1.1 electrolytes and renal profile were reviewed BUN is 24 creatinine is 3.24. Elevation of the left lung is definitely improved, small bilateral pleural effusions were noted Objective - Vital Signs Vital signs: Vital Signs Temp 98.9 F 08/01/16 12:00 Pulse 89 08/01/16 13:00 Resp 16 08/01/16 13:00 BP 127/54 07/30/16 03:32 Pulse Ox 98 08/01/16 13:00 Intake & Output 07/31/16 08/01/16 08/01/16 18:59 06:59 18:59 Intake Total 854.817 779.668 293.955 Output Total 228 260 60 Balance 626.817 519.668 233.955 Weight 90.4 kg 91.5 kg Intake: IV 539 319 130 CO/CI 60 Lactated Ringers 1,000 ml 290 220 100 @ 20 mls/hr IV .Q24H RINA Rx#:[id number] Pressure Bag 189 99 30 Intake, IV Titration 315.817 460.668 163.955 Amount Clevidipine Butyrate 25 44.133 mg In Empty Bag 1 bag @ 1 MG/HR 2 mls/hr IV .Q24H RINA Rx#:[id number] Propofol 500 mg In Empty 271.684 460.668 163.955 Bag 1 bag @ Titrate IV . Q0M IRNA Rx#:[id number] Output: Chest Tube Drainage 180 170 40 Chest Tube Lateral Chest 100 60 40 Chest Tube Mediastinal 80 110 Drainage 25 Right Knee 25 Urine 48 65 20 Other: Voiding Method Indwelling Catheter Indwelling Catheter Indwelling Catheter # Voids 1 # Bowel Movements 1 ABP, PAP, CO, CI - Last Documented Arterial Blood Pressure 96/31 Pulmonary Artery Pressure 40/30 Cardiac Output 6.4 Cardiac Index 3.3 - Exam Physical Exam revealed a 80 year-old sedated, intubated, on mechanical ventilation, in no distress. Endotracheal tube is intact. HEENT:[Neck is supple.] [No neck masses.] [No thyromegaly.] [No JVD.] Chest: [Clear on the right side, but diminished on the left base only, Minimal crackles and rhonchi at the bases.] Cardiac Exam: [Normal S1 and S2, no S3 gallop, no murmur. The pericardial rub] Abdomen: [Soft, nontender, no megaly, no rebound, no guarding, normal bowel sounds.] Extremities: [No clubbing, plus bipedal edema, no cyanosis.] Neurological Exam: [Not be assessed, patient is sedated on mechanical ventilation. - Labs CBC & Chem 7: 08/01/16 05:15 08/01/16 05:15 Labs: Abnormal Lab Results - Last 24 Hours (Table) 07/31/16 08/01/16 08/01/16 Range/Units 14:20 05:15 05:15 RBC 2.31 L (4.30-5.90) m/uL Hgb 7.3 L (13.0-17.5) gm/dL Hct 21.4 L (39.0-53.0) % RDW 19.7 H (11.5-15.5) % Plt Count 101 L (150-450) k/uL Neutrophils # 7.9 H (1.3-7.7) k/uL Lymphocytes # 0.3 L (1.0-4.8) k/uL APTT 35.6 H (22.0-30.0) sec Sodium (137-145) mmol/L Chloride (98-107) mmol/L BUN (9-20) mg/dL Creatinine (0.66-1.25) mg/dL POC Glucose (mg/dL) 101 H (75-99) mg/dL Calcium (8.4-10.2) mg/dL Ionized Calcium Lance (4.5-5.3) mg/dL Total Bilirubin (0.2-1.3) mg/dL Total Protein (6.3-8.2) g/dL Albumin (3.5-5.0) g/dL 08/01/16 Range/Units 05:15 RBC (4.30-5.90) m/uL Hgb (13.0-17.5) gm/dL Hct (39.0-53.0) % RDW (11.5-15.5) % Plt Count (150-450) k/uL Neutrophils # (1.3-7.7) k/uL Lymphocytes # (1.0-4.8) k/uL APTT (22.0-30.0) sec Sodium 131 L (137-145) mmol/L Chloride 96 L (98-107) mmol/L BUN 24 H (9-20) mg/dL Creatinine 3.24 H (0.66-1.25) mg/dL POC Glucose (mg/dL) (75-99) mg/dL Calcium 8.1 L (8.4-10.2) mg/dL Ionized Calcium Lance 4.4 L (4.5-5.3) mg/dL Total Bilirubin 1.6 H (0.2-1.3) mg/dL Total Protein 4.9 L (6.3-8.2) g/dL Albumin 2.7 L (3.5-5.0) g/dL Microbiology - Last 24 Hours (Table) 07/31/16 05:55 Blood Culture - Preliminary Blood No Growth after 24 hours 07/31/16 05:55 Blood Culture - Preliminary Blood No Growth after 24 hours Assessment and Plan Plan: Impression: 1 status post CABG, on mechanical ventilation, postoperative day # 3 2 acute pulmonary edema as noted on the chest x-ray, patient is a hemodialysis patient and his history of chronic renal disease. 3 history of mild aortic stenosis 4 history of mild LV dysfunction 5 history of chronic anemia 6 history of chronic renal failure on hemodialysis 7 history of hypertension 8 history of hyperlipidemia 9 history of right groin pseudoaneurysm following cardiac catheterization. 10 history of right-sided epistaxis felt to be related to previous a staphylococcal colonization, 11 history of rheumatoid arthritis 12 significant blood clots and organized clotting noted in the left mainstem bronchus causing left lung collapse, requiring bronchoscopy and lavage 2 so far in the last 36 hours. Recommendation: Continue ventilatory support, continue to taper the FiO2 down, cut down to 5, awake and the patient's today, and consider weaning trial and weaning parameters once the patient is awake. Discussed the condition of the patient with family, and made aware of all the findings of the bronchoscopy and it is not certain whether the patient will need more bronchoscopies down the line or not. Will depend on how well that he could keep the left lung properly ventilated critical care time is 34 minutes. Time with Patient: Greater than 30
--- NOTE | 2016-08-01 13:33 | P.PN ---
Subjective Patient seen in follow-up for end-stage renal disease. He is maintained on hemodialysis on a Friday schedule. He just completed hemodialysis today with 0.5 liter ultrafiltration. He is currently intubated and sedated. Chest tube is being removed. He underwent 2 bronchoscopies this admission revealing left lung bleeding. Hemoglobin today is 7.3. Vital signs are stable. General: The patient appeared well nourished and normally developed. HEENT: Head exam is unremarkable. Neck is without jugular venous distension. LUNGS: Diffuse rhonchi. Breath sounds decreased. HEART: Rate and Rhythm are regular. First and second heart sounds normal. No murmurs, rubs or gallops. ABDOMEN: Abdominal exam reveals normal bowel sounds. Non-tender and non- distended. No evidence of peritonitis. EXTREMITITES: No clubbing, cyanosis, or edema. Objective - Vital Signs Vital signs: Vital Signs Temp 98.9 F 08/01/16 12:00 Pulse 89 08/01/16 13:00 Resp 16 08/01/16 13:00 BP 127/54 07/30/16 03:32 Pulse Ox 98 08/01/16 13:00 Intake & Output 07/31/16 08/01/16 08/01/16 18:59 06:59 18:59 Intake Total 854.817 779.668 293.955 Output Total 228 260 60 Balance 626.817 519.668 233.955 Weight 90.4 kg 91.5 kg Intake: IV 539 319 130 CO/CI 60 Lactated Ringers 1,000 ml 290 220 100 @ 20 mls/hr IV .Q24H RINA Rx#:[id number] Pressure Bag 189 99 30 Intake, IV Titration 315.817 460.668 163.955 Amount Clevidipine Butyrate 25 44.133 mg In Empty Bag 1 bag @ 1 MG/HR 2 mls/hr IV .Q24H RINA Rx#:[id number] Propofol 500 mg In Empty 271.684 460.668 163.955 Bag 1 bag @ Titrate IV . Q0M RINA Rx#:[id number] Output: Chest Tube Drainage 180 170 40 Chest Tube Lateral Chest 100 60 40 Chest Tube Mediastinal 80 110 Drainage 25 Right Knee 25 Urine 48 65 20 Other: Voiding Method Indwelling Catheter Indwelling Catheter Indwelling Catheter # Voids 1 # Bowel Movements 1 ABP, PAP, CO, CI - Last Documented Arterial Blood Pressure 96/31 Pulmonary Artery Pressure 40/30 Cardiac Output 6.4 Cardiac Index 3.3 - Labs CBC & Chem 7: 08/01/16 05:15 08/01/16 05:15 Labs: Abnormal Lab Results - Last 24 Hours (Table) 07/31/16 08/01/16 08/01/16 Range/Units 14:20 05:15 05:15 RBC 2.31 L (4.30-5.90) m/uL Hgb 7.3 L (13.0-17.5) gm/dL Hct 21.4 L (39.0-53.0) % RDW 19.7 H (11.5-15.5) % Plt Count 101 L (150-450) k/uL Neutrophils # 7.9 H (1.3-7.7) k/uL Lymphocytes # 0.3 L (1.0-4.8) k/uL APTT 35.6 H (22.0-30.0) sec Sodium (137-145) mmol/L Chloride (98-107) mmol/L BUN (9-20) mg/dL Creatinine (0.66-1.25) mg/dL POC Glucose (mg/dL) 101 H (75-99) mg/dL Calcium (8.4-10.2) mg/dL Ionized Calcium Lance (4.5-5.3) mg/dL Total Bilirubin (0.2-1.3) mg/dL Total Protein (6.3-8.2) g/dL Albumin (3.5-5.0) g/dL 08/01/16 Range/Units 05:15 RBC (4.30-5.90) m/uL Hgb (13.0-17.5) gm/dL Hct (39.0-53.0) % RDW (11.5-15.5) % Plt Count (150-450) k/uL Neutrophils # (1.3-7.7) k/uL Lymphocytes # (1.0-4.8) k/uL APTT (22.0-30.0) sec Sodium 131 L (137-145) mmol/L Chloride 96 L (98-107) mmol/L BUN 24 H (9-20) mg/dL Creatinine 3.24 H (0.66-1.25) mg/dL POC Glucose (mg/dL) (75-99) mg/dL Calcium 8.1 L (8.4-10.2) mg/dL Ionized Calcium Lance 4.4 L (4.5-5.3) mg/dL Total Bilirubin 1.6 H (0.2-1.3) mg/dL Total Protein 4.9 L (6.3-8.2) g/dL Albumin 2.7 L (3.5-5.0) g/dL Microbiology - Last 24 Hours (Table) 07/31/16 05:55 Blood Culture - Preliminary Blood No Growth after 24 hours 07/31/16 05:55 Blood Culture - Preliminary Blood No Growth after 24 hours Assessment and Plan Plan: Assessment: #1. End-stage renal disease maintained on hemodialysis on a Friday schedule. #2. 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 #3. Left lung blood clots status post bronchoscopy 2. #4. Anemia. Hemoglobin 7.3 today. He did receive a dose of DDAVP yesterday. Plan: Next hemodialysis on Friday with ultrafiltration as blood pressure tolerates. Start Aranesp. Wean FiO2.
[2016-08-01 14:14] LABS: C-ANCA <1:20 Titer (<1:20); P-ANCA <1:20 Titer (<1:20)
[2016-08-01] MEDS ORDERED: DEXTROSE 50%-WATER 50 ML SYRINGE IVP ONE (14:27)
[2016-08-01 14:29] LABS: Glucose,Whole Blood 63 mg/dL (75-99)
--- NOTE | 2016-08-01 14:35 | XR ---
EXAMINATION TYPE: XR chest 1V portable DATE OF EXAM: 08/01/2016 2:29 PM COMPARISON: 08/01/2016 HISTORY: Difficulty breathing decreased saturation TECHNIQUE: Single frontal view of the chest is obtained. FINDINGS: Bilateral pleural effusion and consolidation greater on the left noted. Postsurgical jones e, cardiomegaly atherosclerotic change aorta. Left-sided chest tube stable. Mediastinal drains not as well seen. Vascular sheath overlying the soft tissues of the right neck. No pneumothorax. Underlying mild venous congestion not excluded. IMPRESSION: 1. Persistent and stable bilateral consolidation and pleural effusion. Underlying mild venous congest ion in the differential.
[2016-08-01] MEDS: LACTATED RINGERS 1,000 ML IV SCH (14:40)
[2016-08-01] MEDS ORDERED: DIGOXIN 250 MCG/ML 2 ML AMP IVP STA (14:46)
[2016-08-01] MEDS ORDERED: DEXTROSE 5% IN WATER 100 ML with AMIODARONE 150 MG IV ONE ×2 (14:46→16:22)
[2016-08-01 14:47] LABS: Glucose,Whole Blood 103 mg/dL (75-99)
[2016-08-01] MEDS: AMIODARONE 450 MG in DEXTROSE 5% IN WATER 250 ML IV SCH ×2 (15:10)
[2016-08-01] MEDS ORDERED: CISATRACURIUM 2 MG/ML 5 ML VIAL IV ONE (15:46)
[2016-08-01] MEDS: DARBEPOETIN ALFA 40 MCG/0.4 ML SYRINGE SQ SCH (15:49)
[2016-08-01] MEDS ORDERED: DEXAMETHASONE SOD PHOSPHATE 4 MG/ML 1 ML VIAL IV PRN (16:14)
[2016-08-01 17:36] LABS: Glucose,Whole Blood 112 mg/dL (75-99)
--- NOTE | 2016-08-01 17:45 | P.PN ---
<Karis Stephens - Last Filed: 08/01/16 17:38> Subjective Principal diagnosis: Non-ST elevation myocardial infarction. POD #3 non-aortic clamp off pump double coronary artery bypass grafting using the left internal mammary artery to the left anterior descending artery and reverse saphenous vein graft from the aorta to the posterior descending artery. Endoscopic harvesting of the right greater saphenous vein. Intraoperative transesophageal echocardiogram and epi-aortic scanning. Intraoperative graft flow measurements using the Medistim machine. Currently sedated on the ventilator, receiving dialysis. Objective - Vital Signs Vital signs: Vital Signs Temp 99.7 F H 08/01/16 08:00 Pulse 90 08/01/16 11:00 Resp 29 H 08/01/16 11:00 BP 127/54 07/30/16 03:32 Pulse Ox 99 08/01/16 11:00 Intake & Output 07/31/16 08/01/16 08/01/16 18:59 06:59 18:59 Intake Total 854.817 779.668 226.101 Output Total 228 260 10 Balance 626.817 519.668 216.101 Weight 90.4 kg 91.5 kg Intake: IV 539 319 104 CO/CI 60 Lactated Ringers 1,000 ml 290 220 80 @ 20 mls/hr IV .Q24H RINA Rx#:[id number] Pressure Bag 189 99 24 Intake, IV Titration 315.817 460.668 122.101 Amount Clevidipine Butyrate 25 44.133 mg In Empty Bag 1 bag @ 1 MG/HR 2 mls/hr IV .Q24H RINA Rx#:[id number] Propofol 500 mg In Empty 271.684 460.668 122.101 Bag 1 bag @ Titrate IV . Q0M RINA Rx#:[id number] Output: Chest Tube Drainage 180 170 10 Chest Tube Lateral Chest 100 60 10 Chest Tube Mediastinal 80 110 Drainage 25 Right Knee 25 Urine 48 65 Other: Voiding Method Indwelling Catheter Indwelling Catheter Indwelling Catheter # Voids 1 # Bowel Movements 1 ABP, PAP, CO, CI - Last Documented Arterial Blood Pressure 125/55 Pulmonary Artery Pressure 40/30 Cardiac Output 6.4 Cardiac Index 3.3 - Constitutional General appearance: Present: cooperative, no acute distress - Respiratory Details: Lungs sounds diminished bilaterally. Respirations even, nonlabored on mechanical ventilation with current settings AC tidal volume 550 FiO2 50% respiratory rate 16 PEEP 10. Mediastinal chest tube with 70 mL serosanguineous drainage in the previous 8 hours, 550 mL in the last 24 hours. Left pleural chest tube drained 40 mL serous fluid in the last 8 hours, 450 mL in the last 24 hours. - Cardiovascular Details: S1, S2 present. Regular rate and rhythm, normal sinus rhythm on telemetry. Sternum stable. Trace bilateral lower extremity edema present. Teds/SCDs present. - Gastrointestinal Gastrointestinal Comment(s): Abdomen soft, nontender, nondistended. Active bowel sounds 4 quadrants. OG tube present to lower intermittent suction. - Genitourinary Genitourinary Comment(s): Sparks present draining clear, yellow urine. Approximately 60 mL overnight. - Integumentary Integumentary Comment(s): Anterior chest wall covered with dry intact Silverlon dressing. Right lower extremity EVH site well approximated with NEYDA drain with minimal drainage. - Psychiatric Psychiatric Comment(s): Sedated on mechanical ventilation. - Allied health notes Allied health notes reviewed: nursing - Labs CBC & Chem 7: 08/01/16 05:15 08/01/16 05:15 Labs: Abnormal Lab Results - Last 24 Hours (Table) 07/31/16 07/31/16 08/01/16 Range/Units 12:07 14:20 05:15 RBC 2.31 L (4.30-5.90) m/uL Hgb 7.3 L (13.0-17.5) gm/dL Hct 21.4 L (39.0-53.0) % RDW 19.7 H (11.5-15.5) % Plt Count 101 L (150-450) k/uL Neutrophils # 7.9 H (1.3-7.7) k/uL Lymphocytes # 0.3 L (1.0-4.8) k/uL APTT (22.0-30.0) sec Sodium (137-145) mmol/L Chloride (98-107) mmol/L BUN (9-20) mg/dL Creatinine (0.66-1.25) mg/dL POC Glucose (mg/dL) 103 H 101 H (75-99) mg/dL Calcium (8.4-10.2) mg/dL Ionized Calcium Lance (4.5-5.3) mg/dL Total Bilirubin (0.2-1.3) mg/dL Total Protein (6.3-8.2) g/dL Albumin (3.5-5.0) g/dL 08/01/16 08/01/16 Range/Units 05:15 05:15 RBC (4.30-5.90) m/uL Hgb (13.0-17.5) gm/dL Hct (39.0-53.0) % RDW (11.5-15.5) % Plt Count (150-450) k/uL Neutrophils # (1.3-7.7) k/uL Lymphocytes # (1.0-4.8) k/uL APTT 35.6 H (22.0-30.0) sec Sodium 131 L (137-145) mmol/L Chloride 96 L (98-107) mmol/L BUN 24 H (9-20) mg/dL Creatinine 3.24 H (0.66-1.25) mg/dL POC Glucose (mg/dL) (75-99) mg/dL Calcium 8.1 L (8.4-10.2) mg/dL Ionized Calcium Lance 4.4 L (4.5-5.3) mg/dL Total Bilirubin 1.6 H (0.2-1.3) mg/dL Total Protein 4.9 L (6.3-8.2) g/dL Albumin 2.7 L (3.5-5.0) g/dL Microbiology - Last 24 Hours (Table) 07/31/16 05:55 Blood Culture - Preliminary Blood No Growth after 24 hours 07/31/16 05:55 Blood Culture - Preliminary Blood No Growth after 24 hours - Imaging and Cardiology Chest x-ray: report reviewed, image reviewed Assessment and Plan (1) Non-STEMI (non-ST elevated myocardial infarction) Status: Acute (2) Hypertension Status: Acute (3) Hyperlipidemia Status: Acute (4) End-stage renal disease on hemodialysis Status: Acute Plan: 1. Continue aspirin, Lipitor, Lopressor. Hold Plavix for now. 2. Possible repeat bronchoscopy today by Dr. Santa. 3. Vent management per pulmonology. Wean O2 as tolerated. 4. Will DC mediastinal chest tube, NEYDA drain. 5. Patient to be dialyzed again today. 6. Will start tube feedings if patient unable to be extubated. 7. Will continue to monitor labs, chest x-rays. 8. GI/DVT prophylaxis. 9. Will reapply hard boot to left lower extremity when patient extubated and ambulatory 10. More recommendations as patient progresses. Time with Patient: Greater than 30 <Elvie Alcaraz - Last Filed: 08/03/16 15:42> Subjective Principal diagnosis: post-op course complicated by spontaneous intraparenchymal left lung bleeding warranting bronchoscopy and mechanical ventilation. Objective - Vital Signs Vital signs: Vital Signs Temp 97.9 F 08/03/16 14:30 Pulse 58 L 08/03/16 15:18 Resp 17 08/03/16 15:00 BP 150/51 08/03/16 14:30 Pulse Ox 100 08/03/16 15:00 Intake & Output 08/02/16 08/03/16 08/03/16 18:59 06:59 18:59 Intake Total 735.586 529.056 4029.707 Output Total 50 143 50 Balance 685.586 280.570 7011.707 Weight 92 kg 94.3 kg Intake: IV 376.7 156 207 0.9 240 120 180 Dextrose 5% in Water 100 100.2 ml @ 618 mls/hr IV .Q10M ONE with Amiodarone 150 mg Rx#:[id number] Pressure Bag 36.5 36 27 Intake, IV Titration 288.886 185.765 230.707 Amount Amiodarone 450 mg In 102.985 Dextrose 5% in Water 250 ml @ 1 MG/MIN 34.53 mls/ hr IV .Q7H31M RINA Rx#: [id number] Piperacillin-Tazobactam 3 50.0 50.0 .375 gm In Dextrose/Water 1 50ml.bag @ 12.5 mls/hr IVPB Q12HR RINA Rx#: [id number] Propofol 500 mg In Empty 185.901 135.765 180.707 Bag 1 bag @ Titrate IV . Q0M RINA Rx#:[id number] Oral 0 Tube Feeding 70 340 270 Blood Product 310 Rc Pheresis 2 As3 Unit 310 [id number] Other 90 60 Output: Chest Tube Drainage 50 80 20 Chest Tube Lateral Chest 50 80 20 Urine 0 63 30 Other: Voiding Method Indwelling Catheter Indwelling Catheter Indwelling Catheter # Bowel Movements 1 1 ABP, PAP, CO, CI - Last Documented Arterial Blood Pressure 170/55 Pulmonary Artery Pressure 40/30 Cardiac Output 6.4 Cardiac Index 3.3 - Labs CBC & Chem 7: 08/03/16 05:00 08/03/16 05:00 Labs: Abnormal Lab Results - Last 24 Hours (Table) 08/02/16 08/02/16 08/02/16 Range/Units 18:39 20:27 23:47 RBC (4.30-5.90) m/uL Hgb (13.0-17.5) gm/dL Hct (39.0-53.0) % RDW (11.5-15.5) % Plt Count (150-450) k/uL Lymphocytes # (1.0-4.8) k/uL ABG pH (7.35-7.45) ABG pCO2 (35-45) mmHg ABG pO2 (83-108) mmHg ABG O2 Saturation (94-97) % Sodium (137-145) mmol/L BUN (9-20) mg/dL Creatinine (0.66-1.25) mg/dL Glucose (74-99) mg/dL POC Glucose (mg/dL) 150 H 138 H 133 H (75-99) mg/dL Calcium (8.4-10.2) mg/dL Ionized Calcium Lance (4.5-5.3) mg/dL Phosphorus (2.5-4.5) mg/dL Magnesium (1.6-2.3) mg/dL Alkaline Phosphatase (38-126) U/L Total Protein (6.3-8.2) g/dL Albumin (3.5-5.0) g/dL Crossmatch 08/03/16 08/03/16 08/03/16 Range/Units 03:46 05:00 05:00 RBC 2.27 L (4.30-5.90) m/uL Hgb 7.1 L (13.0-17.5) gm/dL Hct 21.6 L (39.0-53.0) % RDW 18.4 H (11.5-15.5) % Plt Count 127 L (150-450) k/uL Lymphocytes # 0.2 L (1.0-4.8) k/uL ABG pH (7.35-7.45) ABG pCO2 (35-45) mmHg ABG pO2 (83-108) mmHg ABG O2 Saturation (94-97) % Sodium 134 L (137-145) mmol/L BUN 47 H (9-20) mg/dL Creatinine 3.40 H (0.66-1.25) mg/dL Glucose 136 H (74-99) mg/dL POC Glucose (mg/dL) 149 H (75-99) mg/dL Calcium 8.0 L (8.4-10.2) mg/dL Ionized Calcium Lance 4.2 L (4.5-5.3) mg/dL Phosphorus 8.1 H* (2.5-4.5) mg/dL Magnesium 2.6 H (1.6-2.3) mg/dL Alkaline Phosphatase 171 H (38-126) U/L Total Protein 5.0 L (6.3-8.2) g/dL Albumin 2.6 L (3.5-5.0) g/dL Crossmatch 08/03/16 08/03/16 08/03/16 Range/Units 08:00 08:02 09:10 RBC (4.30-5.90) m/uL Hgb (13.0-17.5) gm/dL Hct (39.0-53.0) % RDW (11.5-15.5) % Plt Count (150-450) k/uL Lymphocytes # (1.0-4.8) k/uL ABG pH 7.50 H (7.35-7.45) ABG pCO2 29 L (35-45) mmHg ABG pO2 113 H (83-108) mmHg ABG O2 Saturation 99.0 H (94-97) % Sodium (137-145) mmol/L BUN (9-20) mg/dL Creatinine (0.66-1.25) mg/dL Glucose (74-99) mg/dL POC Glucose (mg/dL) 138 H (75-99) mg/dL Calcium (8.4-10.2) mg/dL Ionized Calcium Lance (4.5-5.3) mg/dL Phosphorus (2.5-4.5) mg/dL Magnesium (1.6-2.3) mg/dL Alkaline Phosphatase (38-126) U/L Total Protein (6.3-8.2) g/dL Albumin (3.5-5.0) g/dL Crossmatch See Detail 08/03/16 Range/Units 11:59 RBC (4.30-5.90) m/uL Hgb (13.0-17.5) gm/dL Hct (39.0-53.0) % RDW (11.5-15.5) % Plt Count (150-450) k/uL Lymphocytes # (1.0-4.8) k/uL ABG pH (7.35-7.45) ABG pCO2 (35-45) mmHg ABG pO2 (83-108) mmHg ABG O2 Saturation (94-97) % Sodium (137-145) mmol/L BUN (9-20) mg/dL Creatinine (0.66-1.25) mg/dL Glucose (74-99) mg/dL POC Glucose (mg/dL) 144 H (75-99) mg/dL Calcium (8.4-10.2) mg/dL Ionized Calcium Lance (4.5-5.3) mg/dL Phosphorus (2.5-4.5) mg/dL Magnesium (1.6-2.3) mg/dL Alkaline Phosphatase (38-126) U/L Total Protein (6.3-8.2) g/dL Albumin (3.5-5.0) g/dL Crossmatch Microbiology - Last 24 Hours (Table) 08/01/16 16:15 Gram Stain - Final Bronchial Washings - Left Bronchial Washings Culture - Final Pseudomonas aeruginosa 07/31/16 05:55 Blood Culture - Preliminary Blood No Growth after 72 hours 07/31/16 05:55 Blood Culture - Preliminary Blood No Growth after 72 hours 08/01/16 16:15 Acid Fast Bacilli Smear - Final Bronchial Washings - Left Acid Fast Bacilli Culture - Preliminary
[2016-08-01] MEDS: DEXAMETHASONE SOD PHOSPHATE 4 MG/ML 1 ML VIAL IV SCH (18:21)
[2016-08-01 20:34] LABS: Glucose,Whole Blood 113 mg/dL (75-99)
[2016-08-01] MEDS: SODIUM CHLORIDE 0.9% 1,000 ML IV SCH (20:51)
--- NOTE | 2016-08-01 21:52 | P.PN ---
Subjective Principal diagnosis: cough This is a 80-year-old male known to infectious disease service as he has been treated for infection to his shunt on his left arm before as well as ulceration to his left heel. Patient states that he presented to [facility] because he was initially having epistaxis. This was on Friday. The bleeding was controlled and he was discharged home. He then returned on Friday as he woke up in the morning at 2 AM with a cough and shortness of breath that had been going on but continued to worsen. 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 He has been evaluated by cardiothoracic surgery and is scheduled for CABG on June 28. Patient does have history of end-stage renal disease on hemodialysis Friday and Friday and is followed by Dr. Fernandez. He denies any problems with his dialysis AV fistula in his left arm. [facility] under the care of Dr. Carey. He has a total contact cast to the left lower extremity which is scheduled to be removed today. Regarding his epistaxis, patient was seen by Dr. Chen on underwent flexible nasal endoscopy finding a right anterior septal ulcer. Dr. Lucas is following from pulmonary medicine. Upon review of his previous wound cultures, he does have history of MRSA. Patient does have history of rheumatoid arthritis on prednisone only. 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 He has been evaluated by interventional radiology and repairs been performed. He is doing well and folow up shows resolution of the pseudoaneurysm The cardiothoracic surgeries occurred. He did well but had some bleeding into his lungs. A bronchoscopy was today to remove blood clots. Cultures and biopsies in process. Nothing positive so far. He is somewhat hypertensive not hypotensive and did have dialysis today Objective - Vital Signs Vital signs: Vital Signs Temp 100 F H 08/01/16 20:00 Pulse 83 08/01/16 21:00 Resp 20 08/01/16 21:00 BP 127/54 07/30/16 03:32 Pulse Ox 97 08/01/16 21:00 Intake & Output 08/01/16 08/01/16 08/02/16 06:59 18:59 06:59 Intake Total 779.668 686.698 265.742 Output Total 260 79 5 Balance 519.668 607.698 260.742 Weight 91.5 kg Intake: IV 319 486 46 0.9 60 40 Dextrose 5% in Water 100 200 ml @ 618 mls/hr IV .Q10M ONE with Amiodarone 150 mg Rx#:[id number] Lactated Ringers 1,000 ml 220 160 @ 20 mls/hr IV .Q24H RINA Rx#:[id number] Pressure Bag 99 66 6 Intake, IV Titration 460.668 200.698 219.742 Amount Amiodarone 450 mg In 197.397 Dextrose 5% in Water 250 ml @ 1 MG/MIN 34.53 mls/ hr IV .Q7H31M RINA Rx#: [id number] Propofol 500 mg In Empty 460.668 200.698 22.345 Bag 1 bag @ Titrate IV . Q0M RINA Rx#:[id number] Output: Chest Tube Drainage 170 40 Chest Tube Lateral Chest 60 40 Chest Tube Mediastinal 110 Drainage 25 Right Knee 25 Urine 65 39 5 Other: Voiding Method Indwelling Catheter Indwelling Catheter # Voids 1 # Bowel Movements 1 ABP, PAP, CO, CI - Last Documented Arterial Blood Pressure 115/39 Pulmonary Artery Pressure 40/30 Cardiac Output 6.4 Cardiac Index 3.3 - Exam Gen: This is a 80-year-old male. Postoperative, intubated sedated and mechanically ventilated HEENT: Head is atraumatic, normocephalic. Pupils equal, round. Sclerae is anicteric. Conjunctiva pink. Mucous members of the mouth are moist. No thrush noted. NECK: Supple. No JVD. No lymphadenopathy. No thyromegaly. LUNGS: Coarse crackles throughout the lung cotto HEART: Regular rate and rhythm. No murmur. ABDOMEN: Soft. Bowel sounds are present. No masses. No tenderness. EXTREMITIES: No pedal edema. No calf tenderness. Total contact cast was removed. The ulceration to the left heel is clean without significant purulence noted drainage. Silver dressing is in place.fistula left arm intact Dialysis graft of the left arm is intact. NEUROLOGICAL: Sedated but responding - Labs CBC & Chem 7: 08/01/16 05:15 08/01/16 05:15 Labs: Abnormal Lab Results - Last 24 Hours (Table) 08/01/16 08/01/16 08/01/16 Range/Units 05:15 05:15 05:15 RBC 2.31 L (4.30-5.90) m/uL Hgb 7.3 L (13.0-17.5) gm/dL Hct 21.4 L (39.0-53.0) % RDW 19.7 H (11.5-15.5) % Plt Count 101 L (150-450) k/uL Neutrophils # 7.9 H (1.3-7.7) k/uL Lymphocytes # 0.3 L (1.0-4.8) k/uL APTT 35.6 H (22.0-30.0) sec Sodium 131 L (137-145) mmol/L Chloride 96 L (98-107) mmol/L BUN 24 H (9-20) mg/dL Creatinine 3.24 H (0.66-1.25) mg/dL POC Glucose (mg/dL) (75-99) mg/dL Calcium 8.1 L (8.4-10.2) mg/dL Ionized Calcium Lance 4.4 L (4.5-5.3) mg/dL Total Bilirubin 1.6 H (0.2-1.3) mg/dL Total Protein 4.9 L (6.3-8.2) g/dL Albumin 2.7 L (3.5-5.0) g/dL 08/01/16 08/01/16 08/01/16 Range/Units 14:25 14:45 17:35 RBC (4.30-5.90) m/uL Hgb (13.0-17.5) gm/dL Hct (39.0-53.0) % RDW (11.5-15.5) % Plt Count (150-450) k/uL Neutrophils # (1.3-7.7) k/uL Lymphocytes # (1.0-4.8) k/uL APTT (22.0-30.0) sec Sodium (137-145) mmol/L Chloride (98-107) mmol/L BUN (9-20) mg/dL Creatinine (0.66-1.25) mg/dL POC Glucose (mg/dL) 63 L 103 H 112 H (75-99) mg/dL Calcium (8.4-10.2) mg/dL Ionized Calcium Lance (4.5-5.3) mg/dL Total Bilirubin (0.2-1.3) mg/dL Total Protein (6.3-8.2) g/dL Albumin (3.5-5.0) g/dL 08/01/16 Range/Units 20:32 RBC (4.30-5.90) m/uL Hgb (13.0-17.5) gm/dL Hct (39.0-53.0) % RDW (11.5-15.5) % Plt Count (150-450) k/uL Neutrophils # (1.3-7.7) k/uL Lymphocytes # (1.0-4.8) k/uL APTT (22.0-30.0) sec Sodium (137-145) mmol/L Chloride (98-107) mmol/L BUN (9-20) mg/dL Creatinine (0.66-1.25) mg/dL POC Glucose (mg/dL) 113 H (75-99) mg/dL Calcium (8.4-10.2) mg/dL Ionized Calcium Lance (4.5-5.3) mg/dL Total Bilirubin (0.2-1.3) mg/dL Total Protein (6.3-8.2) g/dL Albumin (3.5-5.0) g/dL Microbiology - Last 24 Hours (Table) 07/31/16 05:55 Blood Culture - Preliminary Blood No Growth after 24 hours 07/31/16 05:55 Blood Culture - Preliminary Blood No Growth after 24 hours Assessment and Plan (1) Non-STEMI (non-ST elevated myocardial infarction) Status: Acute (2) Diabetic foot ulcer associated with type 2 diabetes mellitus Narrative/Plan: The total contact cast has now been removed by the team from the wound center. Local wound care has been applied to the ulceration. He is appropriately anxious for the upcoming cardiovascular surgery. The family is present. The family is reassured that the cardiac thoracic surgeon, Dr. Alcaraz is an excellent surgeon. We will proceed with surgery, Friday. Is having ultrasound of his right groin to make sure is not a pseudoaneurysm. Local wound care with the silver product to the foot ulcer is being utilized. It is about an infected ulceration and needs ongoing local wound care. The ulceration is not a contraindication for this procedure of coronary artery bypass grafting. We will monitor. Had pseudoaneurysm repair and other than discomfort is doing well As noted will have his cardiovascular surgery tomorrow. He is assured to the best of the ability. Case is discussed with the cardiothoracic team he received vancomycin for prophylaxis. Continue local wound care to the ulceration to his heel and offloaded. Local wound care as ordered with rena every Friday. We'll follow the lung samples for evidence of infection Status: Acute
[2016-08-01 22:02] LABS: Glucose,Whole Blood 116 mg/dL (75-99)
[2016-08-01] MEDS: SENNOSIDES-DOCUSATE SODIUM 1 EACH TAB PO SCH (22:47)
[2016-08-02] MEDS: PROPOFOL 500 MG in EMPTY BAG 1 BAG IV SCH ×9 (01:53→23:49)
[2016-08-02] MEDS: IPRATROPIUM-ALBUTEROL 3 ML NEB INHALATION SCH ×6 (03:25→23:18)
--- NOTE | 2016-08-02 04:19 | PN ---
Mr. Xie is doing somewhat better today. He is still intubated. Weaning efforts will be started soon. He has been bronched twice yesterday, however, he is in a sinus rhythm. Hemodynamically stable. S1, S2 heard normally. Lungs revealed improved air entry. Abdomen and lower extremity exam is unchanged. From a cardiac standpoint, I have no new specific ( ). We will continue current medical regimen.
[2016-08-02 04:20] LABS: Glucose,Whole Blood 124 mg/dL (75-99)
[2016-08-02 04:20] LABS: Glucose,Whole Blood 129 mg/dL (75-99)
[2016-08-02 04:44] LABS: Glucose,Whole Blood 131 mg/dL (75-99)
[2016-08-02 04:57] LABS: Calcium 8.1 mg/dL (8.4-10.2); Potassium 3.8 mmol/L (3.5-5.1); Total Bilirubin 1.5 mg/dL (0.2-1.3); Total Protein 4.7 g/dL (6.3-8.2)
[2016-08-02 05:02] LABS: Anisocytosis Slight; Basophils % (A) 0 %; CH 30.8; Eosinophils % (A) 0 %; HCT 21.7 % (39.0-53.0); HDW 3.44; HGB 7.2 gm/dL (13.0-17.5); Hypochromasia Slight; Luc # (Auto) 0.14; Luc % (Auto) 2; Lymphocytes # (A) 0.2 k/uL (1.0-4.8); Lymphocytes % (A) 2 %; MCH 31.4 pg (25.0-35.0); MCHC 33.3 g/dL (31.0-37.0); MCV 94.4 fL (80.0-100.0); Macrocytosis Slight; Mean Platelet Volume 7.7; Monocytes # (A) 0.3 k/uL (0-1.0); Monocytes % (A) 4 %; Neutrophils # (A) 8.7 k/uL (1.3-7.7); Neutrophils % (A) 93 %; Poikilocytosis Slight; RDW 19.3 % (11.5-15.5); WBC 9.4 k/uL (3.8-10.6); WBC (Perox) 10.21
[2016-08-02 05:04] LABS: Ionized Calcium 4.5 mg/dL (4.5-5.3)
[2016-08-02 05:09] LABS: INR 1.1 (<1.1); Partial Thromboplastin Time 31.6 sec (22.0-30.0); Prothrombin Time 10.7 sec (9.0-12.0)
[2016-08-02] MEDS: HEPARIN SODIUM,PORCINE 5,000 UNIT/ML 1 ML VIAL SQ SCH ×4 (05:28→23:48)
[2016-08-02 06:12] LABS: Glucose,Whole Blood 131 mg/dL (75-99)
[2016-08-02] MEDS: DEXAMETHASONE SOD PHOSPHATE 4 MG/ML 1 ML VIAL IV SCH ×5 (06:16→23:48)
--- NOTE | 2016-08-02 07:12 | PCN ---
DATE OF PROCEDURE: OPERATIVE REPORT: Bronchoscopy and bronchoalveolar lavage of the left lung including lavage of the left upper lobe, lingula, and left lower lobe and attempt to remove more blood clots from the ( ) lower lobe and from the left main stem bronchus. PREOPERATIVE DIAGNOSIS: Recurrent collapse of the left lung and left lower lobe. POSTOPERATIVE DIAGNOSIS: Recurrent collapse of the left lung and left lower lobe. ANESTHESIA USED: Patient was already on propofol. He was given 2 mg of morphine and 10 mg of Nimbex prior to the procedure. Patient was already on mechanical ventilation. PROCEDURE: Patient was placed in a supine position. After adequate sedation, we were able to monitor his O2 saturation continuously, blood pressure was continuously monitored and cardiac rhythm was continuously monitored. Then bronchoscope was inserted through the adapter down to the endotracheal tube and examination of the right side was done. No evidence of any significant abnormalities noted on the right side including right upper lobe, right middle lobe, right lower lobe. However, as we entered the left mainstem bronchus, at the distal end of the left mainstem bronchus there was significant amount of tissue and blood clots noted and I was able to suction most of these blood clots. The tissue was noted to be indurated and very fragile, broke easily with suctioning. Lavage of the left lower lobe, lingula, and left upper lobe was done, and multiple small blood clots and plugs were removed. Procedure was well tolerated and no evidence of any immediate complications. The fluid was sent for different diagnostic studies.
[2016-08-02] MEDS: AMIODARONE 450 MG in DEXTROSE 5% IN WATER 250 ML IV SCH ×6 (07:15→13:13)
--- NOTE | 2016-08-02 08:13 | XR ---
EXAMINATION TYPE: XR chest 1V portable DATE OF EXAM: 08/02/2016 7:00 AM COMPARISON: Prior chest x-ray 01 August 2016 HISTORY: Status post cardiac surgery TECHNIQUE: frontal view of the chest is obtained on 2 images. FINDINGS: Endotracheal tube, NG tube, left chest tube are overlying appropriate positions. No eviden t pneumothorax. Right jugular central venous sheath is in place. Old Right-sided rib fractures are pr esent. There are overlying cardiac leads. The heart is enlarged. Persistent basilar density present o n the left. Interstitium and central vascularity are prominent. IMPRESSION: There may be a component of volume overload, pulmonary venous hypertension and interstit ial edema, possible left lower lobe atelectasis versus pneumonia and associated effusion.
[2016-08-02] MEDS ORDERED: AMIODARONE 200 MG TAB PO SCH (09:00)
[2016-08-02 09:09] LABS: ABG HCO3 24 mmol/L (21-25); ABG PCO2 33 mmHg (35-45); ABG PH 7.48 (7.35-7.45); ABG PO2 85 mmHg (83-108); ABG TCO2 25 mmol/L (19-24)
[2016-08-02 09:10] LABS: ABG Base Excess 1.1 mmol/L; ABG Oxygen Saturation 97.2 % (94-97)
[2016-08-02] MEDS: ATORVASTATIN 40 MG TAB PO SCH (09:58)
[2016-08-02] MEDS: ASPIRIN 81 MG CHEW PO SCH (09:58)
[2016-08-02] MEDS: CHLORHEXIDINE GLUCONATE 15 ML CUP MUCOUS MEM SCH ×2 (09:58→21:25)
[2016-08-02] MEDS: PANTOPRAZOLE 40 MG/10 ML VIAL IVP SCH (09:58)
[2016-08-02] MEDS: METOPROLOL TARTRATE 25 MG TAB PO SCH (10:31)
--- NOTE | 2016-08-02 11:11 | P.PN ---
<Karis Stephens - Last Filed: 08/02/16 11:02> Subjective Principal diagnosis: Non-ST elevation myocardial infarction. POD #4 non-aortic clamp off pump double coronary artery bypass grafting using the left internal mammary artery to the left anterior descending artery and reverse saphenous vein graft from the aorta to the posterior descending artery. Endoscopic harvesting of the right greater saphenous vein. Intraoperative transesophageal echocardiogram and epi-aortic scanning. Intraoperative graft flow measurements using the Medistim machine. Currently sedated on the ventilator. Objective - Vital Signs Vital signs: Vital Signs Temp 97.6 F 08/02/16 08:00 Pulse 60 08/02/16 09:00 Resp 18 08/02/16 09:00 BP 127/54 07/30/16 03:32 Pulse Ox 99 08/02/16 09:00 Intake & Output 08/01/16 08/02/16 08/02/16 18:59 06:59 18:59 Intake Total 686.698 733.345 175.392 Output Total 79 125 20 Balance 607.698 608.345 155.392 Weight 92 kg 92 kg Intake: IV 486 252 99.4 0.9 60 240 60 Dextrose 5% in Water 100 200 33.4 ml @ 618 mls/hr IV .Q10M ONE with Amiodarone 150 mg Rx#:[id number] Lactated Ringers 1,000 ml 160 @ 20 mls/hr IV .Q24H [facility] Rx#:[id number] Pressure Bag 66 12 6 Intake, IV Titration 200.698 481.345 75.992 Amount Amiodarone 450 mg In 259.000 0.288 Dextrose 5% in Water 250 ml @ 1 MG/MIN 34.53 mls/ hr IV .Q7H31M [facility] Rx#: [id number] Propofol 500 mg In Empty 200.698 222.345 75.704 Bag 1 bag @ Titrate IV . Q0M [facility] Rx#:[id number] Output: Chest Tube Drainage 40 100 20 Chest Tube Lateral Chest 40 100 20 Urine 39 25 0 Other: Voiding Method Indwelling Catheter Indwelling Catheter # Voids 1 # Bowel Movements 1 1 ABP, PAP, CO, CI - Last Documented Arterial Blood Pressure 112/38 Pulmonary Artery Pressure 40/30 Cardiac Output 6.4 Cardiac Index 3.3 - Constitutional General appearance: Present: no acute distress - Respiratory Details: Lungs sounds diminished bilaterally with faint inspiratory wheeze. Respirations even, nonlabored on mechanical ventilation. Current settings assist control, tidal volume 550, FiO2 50%, respiratory rate 16, PEEP 10. Left pleural chest tube drained 50 mL serous fluid in the prior 8 hours, 110 mL in the last 24 hours. No air leak present. - Cardiovascular Details: S1, S2 present. Regular rate and rhythm, sinus rhythm to sinus bradycardia on telemetry. Sternum stable. No edema present. Teds, SCDs present. - Gastrointestinal Gastrointestinal Comment(s): Abdomen soft, nontender, nondistended. Active bowel sounds 4 quadrants. OG tube present. Tube feeding to be started. - Genitourinary Genitourinary Comment(s): Sparks present draining minimal clear, yellow urine. Left upper extremity AV fistula with positive bruit, positive thrill. Last dialysis 08/01/2016. - Integumentary Integumentary Comment(s): Anterior chest incision covered with dry intact Silverlon dressing. Right lower extremity EVH site well approximated. - Musculoskeletal Musculoskeletal: Present: strength equal bilaterally - Psychiatric Psychiatric Comment(s): Currently sedated on mechanical ventilation. Does wake up and participate fully with sedation holiday. - Allied health notes Allied health notes reviewed: nursing - Labs CBC & Chem 7: 08/02/16 04:05 08/02/16 04:05 Labs: Abnormal Lab Results - Last 24 Hours (Table) 08/01/16 08/01/16 08/01/16 Range/Units 14:25 14:45 17:35 RBC (4.30-5.90) m/uL Hgb (13.0-17.5) gm/dL Hct (39.0-53.0) % RDW (11.5-15.5) % Plt Count (150-450) k/uL Neutrophils # (1.3-7.7) k/uL Lymphocytes # (1.0-4.8) k/uL APTT (22.0-30.0) sec ABG pH (7.35-7.45) ABG pCO2 (35-45) mmHg ABG Total CO2 (19-24) mmol/L ABG O2 Saturation (94-97) % BUN (9-20) mg/dL Creatinine (0.66-1.25) mg/dL Glucose (74-99) mg/dL POC Glucose (mg/dL) 63 L 103 H 112 H (75-99) mg/dL Calcium (8.4-10.2) mg/dL Total Bilirubin (0.2-1.3) mg/dL Alkaline Phosphatase (38-126) U/L Total Protein (6.3-8.2) g/dL Albumin (3.5-5.0) g/dL 08/01/16 08/01/16 08/01/16 Range/Units 20:32 21:59 23:28 RBC (4.30-5.90) m/uL Hgb (13.0-17.5) gm/dL Hct (39.0-53.0) % RDW (11.5-15.5) % Plt Count (150-450) k/uL Neutrophils # (1.3-7.7) k/uL Lymphocytes # (1.0-4.8) k/uL APTT (22.0-30.0) sec ABG pH (7.35-7.45) ABG pCO2 (35-45) mmHg ABG Total CO2 (19-24) mmol/L ABG O2 Saturation (94-97) % BUN (9-20) mg/dL Creatinine (0.66-1.25) mg/dL Glucose (74-99) mg/dL POC Glucose (mg/dL) 113 H 116 H 124 H (75-99) mg/dL Calcium (8.4-10.2) mg/dL Total Bilirubin (0.2-1.3) mg/dL Alkaline Phosphatase (38-126) U/L Total Protein (6.3-8.2) g/dL Albumin (3.5-5.0) g/dL 08/02/16 08/02/16 08/02/16 Range/Units 02:40 04:05 04:05 RBC 2.30 L (4.30-5.90) m/uL Hgb 7.2 L (13.0-17.5) gm/dL Hct 21.7 L (39.0-53.0) % RDW 19.3 H (11.5-15.5) % Plt Count 122 L (150-450) k/uL Neutrophils # 8.7 H (1.3-7.7) k/uL Lymphocytes # 0.2 L (1.0-4.8) k/uL APTT 31.6 H (22.0-30.0) sec ABG pH (7.35-7.45) ABG pCO2 (35-45) mmHg ABG Total CO2 (19-24) mmol/L ABG O2 Saturation (94-97) % BUN (9-20) mg/dL Creatinine (0.66-1.25) mg/dL Glucose (74-99) mg/dL POC Glucose (mg/dL) 129 H (75-99) mg/dL Calcium (8.4-10.2) mg/dL Total Bilirubin (0.2-1.3) mg/dL Alkaline Phosphatase (38-126) U/L Total Protein (6.3-8.2) g/dL Albumin (3.5-5.0) g/dL 08/02/16 08/02/16 08/02/16 Range/Units 04:05 04:42 06:11 RBC (4.30-5.90) m/uL Hgb (13.0-17.5) gm/dL Hct (39.0-53.0) % RDW (11.5-15.5) % Plt Count (150-450) k/uL Neutrophils # (1.3-7.7) k/uL Lymphocytes # (1.0-4.8) k/uL APTT (22.0-30.0) sec ABG pH (7.35-7.45) ABG pCO2 (35-45) mmHg ABG Total CO2 (19-24) mmol/L ABG O2 Saturation (94-97) % BUN 23 H (9-20) mg/dL Creatinine 2.80 H (0.66-1.25) mg/dL Glucose 120 H (74-99) mg/dL POC Glucose (mg/dL) 131 H 131 H (75-99) mg/dL Calcium 8.1 L (8.4-10.2) mg/dL Total Bilirubin 1.5 H (0.2-1.3) mg/dL Alkaline Phosphatase 177 H (38-126) U/L Total Protein 4.7 L (6.3-8.2) g/dL Albumin 2.5 L (3.5-5.0) g/dL 08/02/16 Range/Units 08:55 RBC (4.30-5.90) m/uL Hgb (13.0-17.5) gm/dL Hct (39.0-53.0) % RDW (11.5-15.5) % Plt Count (150-450) k/uL Neutrophils # (1.3-7.7) k/uL Lymphocytes # (1.0-4.8) k/uL APTT (22.0-30.0) sec ABG pH 7.48 H (7.35-7.45) ABG pCO2 33 L (35-45) mmHg ABG Total CO2 25 H (19-24) mmol/L ABG O2 Saturation 97.2 H (94-97) % BUN (9-20) mg/dL Creatinine (0.66-1.25) mg/dL Glucose (74-99) mg/dL POC Glucose (mg/dL) (75-99) mg/dL Calcium (8.4-10.2) mg/dL Total Bilirubin (0.2-1.3) mg/dL Alkaline Phosphatase (38-126) U/L Total Protein (6.3-8.2) g/dL Albumin (3.5-5.0) g/dL Microbiology - Last 24 Hours (Table) 07/31/16 05:55 Blood Culture - Preliminary Blood No Growth after 48 hours 07/31/16 05:55 Blood Culture - Preliminary Blood No Growth after 48 hours 08/01/16 16:15 Gram Stain - Preliminary Bronchial Washings - Left Bronchial Washings Culture - Preliminary 08/01/16 16:15 Fungal Culture - Preliminary Bronchial Washings - Left 08/01/16 16:15 Acid Fast Bacilli Culture - Preliminary Bronchial Washings - Left - Imaging and Cardiology Chest x-ray: report reviewed, image reviewed Assessment and Plan (1) Non-STEMI (non-ST elevated myocardial infarction) Status: Acute (2) Hypertension Status: Acute (3) Hyperlipidemia Status: Acute (4) End-stage renal disease on hemodialysis Status: Acute Plan: 1. Continue aspirin, Lipitor, heparin SQ. Decrease Lopressor 12.5 twice a day per cardiology. Continue to hold Plavix for now. 2. Continue IV amiodarone until current bag is finished. Will begin oral amiodarone. 3. Vent management per pulmonology. Wean O2 as tolerated. 4. Dialysis tomorrow, 08/03/2016. 5. Tube feedings to be started today. 6. Will obtain PICC line access in order to discontinue Cordis. 7. Will continue to monitor labs, chest x-rays. 8. Insulin drip, diabetic management per primary service. 9. GI/DVT prophylaxis. 10. Will reapply hard boot to left lower extremity when patient extubated and ambulatory 11. More recommendations as patient progresses. Time with Patient: Greater than 30 <Guero Juárez - Last Filed: 08/02/16 16:21> Objective - Vital Signs Vital signs: Vital Signs Temp 98.5 F 08/02/16 12:00 Pulse 53 L 08/02/16 15:16 Resp 17 08/02/16 15:00 BP 127/54 07/30/16 03:32 Pulse Ox 100 08/02/16 15:00 Intake & Output 08/01/16 08/02/16 08/02/16 18:59 06:59 18:59 Intake Total 686.698 733.345 569.069 Output Total 79 125 50 Balance 607.698 608.345 519.069 Weight 92 kg 92 kg Intake: IV 486 252 298.2 0.9 60 240 180 Dextrose 5% in Water 100 200 100.2 ml @ 618 mls/hr IV .Q10M ONE with Amiodarone 150 mg Rx#:[id number] Lactated Ringers 1,000 ml 160 @ 20 mls/hr IV .Q24H [facility] Rx#:[id number] Pressure Bag 66 12 18 Intake, IV Titration 200.698 481.345 210.869 Amount Amiodarone 450 mg In 259.000 102.985 Dextrose 5% in Water 250 ml @ 1 MG/MIN 34.53 mls/ hr IV .Q7H31M [facility] Rx#: [id number] Propofol 500 mg In Empty 200.698 222.345 107.884 Bag 1 bag @ Titrate IV . Q0M [facility] Rx#:[id number] Oral 0 Tube Feeding 60 Output: Chest Tube Drainage 40 100 50 Chest Tube Lateral Chest 40 100 50 Urine 39 25 0 Other: Voiding Method Indwelling Catheter Indwelling Catheter Indwelling Catheter # Voids 1 # Bowel Movements 1 1 ABP, PAP, CO, CI - Last Documented Arterial Blood Pressure 107/39 Pulmonary Artery Pressure 40/30 Cardiac Output 6.4 Cardiac Index 3.3 - Labs CBC & Chem 7: 08/02/16 04:05 08/02/16 04:05 Labs: Abnormal Lab Results - Last 24 Hours (Table) 08/01/16 08/01/16 08/01/16 Range/Units 17:35 20:32 21:59 RBC (4.30-5.90) m/uL Hgb (13.0-17.5) gm/dL Hct (39.0-53.0) % RDW (11.5-15.5) % Plt Count (150-450) k/uL Neutrophils # (1.3-7.7) k/uL Lymphocytes # (1.0-4.8) k/uL APTT (22.0-30.0) sec ABG pH (7.35-7.45) ABG pCO2 (35-45) mmHg ABG Total CO2 (19-24) mmol/L ABG O2 Saturation (94-97) % BUN (9-20) mg/dL Creatinine (0.66-1.25) mg/dL Glucose (74-99) mg/dL POC Glucose (mg/dL) 112 H 113 H 116 H (75-99) mg/dL Calcium (8.4-10.2) mg/dL Total Bilirubin (0.2-1.3) mg/dL Alkaline Phosphatase (38-126) U/L Total Protein (6.3-8.2) g/dL Albumin (3.5-5.0) g/dL 08/01/16 08/02/16 08/02/16 Range/Units 23:28 02:40 04:05 RBC 2.30 L (4.30-5.90) m/uL Hgb 7.2 L (13.0-17.5) gm/dL Hct 21.7 L (39.0-53.0) % RDW 19.3 H (11.5-15.5) % Plt Count 122 L (150-450) k/uL Neutrophils # 8.7 H (1.3-7.7) k/uL Lymphocytes # 0.2 L (1.0-4.8) k/uL APTT (22.0-30.0) sec ABG pH (7.35-7.45) ABG pCO2 (35-45) mmHg ABG Total CO2 (19-24) mmol/L ABG O2 Saturation (94-97) % BUN (9-20) mg/dL Creatinine (0.66-1.25) mg/dL Glucose (74-99) mg/dL POC Glucose (mg/dL) 124 H 129 H (75-99) mg/dL Calcium (8.4-10.2) mg/dL Total Bilirubin (0.2-1.3) mg/dL Alkaline Phosphatase (38-126) U/L Total Protein (6.3-8.2) g/dL Albumin (3.5-5.0) g/dL 08/02/16 08/02/16 08/02/16 Range/Units 04:05 04:05 04:42 RBC (4.30-5.90) m/uL Hgb (13.0-17.5) gm/dL Hct (39.0-53.0) % RDW (11.5-15.5) % Plt Count (150-450) k/uL Neutrophils # (1.3-7.7) k/uL Lymphocytes # (1.0-4.8) k/uL APTT 31.6 H (22.0-30.0) sec ABG pH (7.35-7.45) ABG pCO2 (35-45) mmHg ABG Total CO2 (19-24) mmol/L ABG O2 Saturation (94-97) % BUN 23 H (9-20) mg/dL Creatinine 2.80 H (0.66-1.25) mg/dL Glucose 120 H (74-99) mg/dL POC Glucose (mg/dL) 131 H (75-99) mg/dL Calcium 8.1 L (8.4-10.2) mg/dL Total Bilirubin 1.5 H (0.2-1.3) mg/dL Alkaline Phosphatase 177 H (38-126) U/L Total Protein 4.7 L (6.3-8.2) g/dL Albumin 2.5 L (3.5-5.0) g/dL 08/02/16 08/02/16 Range/Units 06:11 08:55 RBC (4.30-5.90) m/uL Hgb (13.0-17.5) gm/dL Hct (39.0-53.0) % RDW (11.5-15.5) % Plt Count (150-450) k/uL Neutrophils # (1.3-7.7) k/uL Lymphocytes # (1.0-4.8) k/uL APTT (22.0-30.0) sec ABG pH 7.48 H (7.35-7.45) ABG pCO2 33 L (35-45) mmHg ABG Total CO2 25 H (19-24) mmol/L ABG O2 Saturation 97.2 H (94-97) % BUN (9-20) mg/dL Creatinine (0.66-1.25) mg/dL Glucose (74-99) mg/dL POC Glucose (mg/dL) 131 H (75-99) mg/dL Calcium (8.4-10.2) mg/dL Total Bilirubin (0.2-1.3) mg/dL Alkaline Phosphatase (38-126) U/L Total Protein (6.3-8.2) g/dL Albumin (3.5-5.0) g/dL Microbiology - Last 24 Hours (Table) 08/01/16 16:15 Gram Stain - Preliminary Bronchial Washings - Left Bronchial Washings Culture - Preliminary Pseudomonas spec 07/31/16 05:55 Blood Culture - Preliminary Blood No Growth after 48 hours 07/31/16 05:55 Blood Culture - Preliminary Blood No Growth after 48 hours 08/01/16 16:15 Fungal Culture - Preliminary Bronchial Washings - Left 08/01/16 16:15 Acid Fast Bacilli Culture - Preliminary Bronchial Washings - Left Assessment and Plan Plan: The patient was seen and examined. Agree with the above assessment and plan. His chest x-ray today reveals relatively clear lungs bilaterally. There was no plan for repeat bronchoscopy. He remains on the ventilator and is currently on 10 of PEEP. Apparently he failed weaning this afternoon. Sputum culture is positive for Pseudomonas. He is currently on antibiotics as directed by infectious disease. From a hemodynamic standpoint he remains stable. He was in atrial fibrillation yesterday but converted overnight. We will plan on hemodialysis tomorrow. We'll continue with tube feeds.
--- NOTE | 2016-08-02 11:14 | PN ---
Patient is seen for followup for end-stage renal disease. He remains on the vent. He was taken back for bronchoscopy yesterday for the bleeding in the left lung and left lung collapse. Patient remains on the vent. FiO2 is down to 50%. He remains on PEEP. Patient was dialyzed yesterday. On examination today, blood pressure 112/38, heart rate 60 per minute. He is afebrile. EXAMINATION OF THE HEART: S1 and S2. EXAMINATION OF THE LUNGS: Bilateral breath sounds are heard. ABDOMEN: Soft, distended. Examination of lower extremities shows bilateral extremities to be wrapped. Drain is noted in his right leg. Labs show sodium 137, potassium 3.8, BUN 23, serum creatinine 2.8. Hemoglobin 7.2 g/dL, platelet count 122,000. ASSESSMENT: 1. End-stage renal disease on hemodialysis on a Friday, , Friday schedule. Will arrange for hemodialysis in a.m. 2. Atrial fibrillation with rapid ventricular response, maintained on amiodarone drip. 3. 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 Patient remains on the vent. 4. Wound in the left foot with local wound care, being followed by Infectious Disease. 5. Status post coronary artery bypass surgery. PLAN: Monitor hemoglobin. Transfuse if hemoglobin drops further. We will plan for hemodialysis in a.m. if patient is hemodynamically stable.
--- NOTE | 2016-08-02 11:57 | PN ---
This gentleman is still on a ventilator. He has been bronched yesterday. His respiratory status is showing very modest improvement, remains in sinus rhythm, blood pressure was slightly low earlier today. Vital signs are stable today. Blood pressure is 108 systolic. S1, S2 heard normally. Short systolic murmur noted. Lungs reveal diminished air entry. Abdomen and lower extremity exam is unchanged. Plan is to cut down the beta odette on this patient and continue amiodarone and see how he does.
[2016-08-02] MEDS ORDERED: LIDOCAINE 2% INJ 20 MG/ML SQ ONE (12:33)
--- NOTE | 2016-08-02 13:16 | XR ---
EXAMINATION TYPE: XR chest 1V confirm line plcnm DATE OF EXAM: 08/02/2016 12:50 PM HISTORY: PICC line placement. REFERENCE: Previous study dated 08/02/2016. FINDINGS: The entire chest is not included on study. A right basilic PICC line is been placed. Its tip is at the cavoatrial junction. ET tube and NG tube remain in place, unchanged in appearance. There is left basilar airspace disease. There is developing right basilar airspace disease. There is a small right effusion. The left patient's left effusion is not visualized on this study. IMPRESSION: SATISFACTORY PICC LINE PLACEMENT.
--- NOTE | 2016-08-02 13:17 | P.PN ---
Subjective Principal diagnosis: Status post CABG postoperative day # 4 This is a 80-year-old white male with history of multiple medical problems including hypertension, previous ischemic heart disease and mild aortic stenosis. End-stage renal disease on hemodialysis. History of rheumatoid arthritis, patient was admitted recently with chest pain, cardiac enzymes were suggestive of non-ST elevation myocardial infarction, cardiac cath showed significant coronary artery disease with critical lesion in the proximal LAD also the proximal RCA. Today, the patient underwent myocardial revascularization by Dr. Alcaraz, and he was placed on mechanical ventilation postoperatively, seen in the ICU for consultation and postoperative ventilator management. Presently, the patient is on 100% FiO2, assist control rate of 12, PEEP of 5, and tidal volume of 500. Initial ABG showed a pO2 of 364, pCO2 of 42 pH of 7.32. However shortly after patient was placed on a 50% FiO2, and he was noted to have significant drop in his saturation based on pulse oximetry. Repeat ABG showed worsening oxygenation with a pO2 of 46 pCO2 of 50 and pH of 7.28. Hence placed back on 100%, increased his rate up to 16, and increased the PEEP to 10. Follow-up chest x-ray showed worsening pulmonary edema, remind you patient is a hemodialysis patient. Follow-up ABG is pending. Patient is presently fully sedated, and in no distress. Reevaluated today on 07/30/2016, patient is status post off pump double coronary artery bypass grafting using L REJI to LAD, and reverse saphenous vein graft from the aorta to the posterior descending artery.patient remains on mechanical ventilation, chest x-ray is showing worsening picture of pulmonary edema, however the possibility of bleeding into the left midlung area and left lower lobe is not entirely ruled out there seems to be a worsening consolidation in the area of the left midlung and left lower lobe, hence may consider bronchoscopy on this patient. In the meantime, patient is being ultrafiltrate it today, and hopefully that will make a significant improvement on the chest x- ray appearance, and may help oxygenation.labs were reviewed, WBC count is 9.8 hemoglobin is 7.6 it was 6.5 earlier today,patient received a total of 5 units of packed RBCs since admission, 2 units of fresh frozen plasma, and 3 units of platelets. Reevaluated today on 07/31/2016, patient underwent another bronchoscopy today although his chest x-ray was showing some improvement compared to the chest x- ray yesterday after bronchoscopy. There was evidence of more aeration of the left upper lobe and lingula on the chest x-ray today. Today I was able to clear plugs from the left lower lobe bronchus, and from the lingular bronchus. Throughout the procedure there was some oozing of blood, and the mucosa of the bronchial tube was noted to be very fragile and bled easily. No biopsies were done. But suctioning and lavages of the left lower lobe and lingula was performed. In the meantime the patient remains on mechanical ventilations, today I increased his tidal volume up to 550 kept him on assist control rate of 16 I increased the flow rates up to 70, and FiO2 will be titrated down from 100 % during the bronchoscopy to as low as 50% as tolerated, and PEEP remains at 10 for the time being. Labs were reviewed, hemoglobin is 7.9 platelets are 114. Electrolytes were reviewed BUN is 31 creatinine is 4.29. On 08/01/2016, patient remains on mechanical ventilation, we were able earlier today to cut down the FiO2 to 50%, and PEEP was down to as low as 5%. However as the hemodialysis was started, patient began to desaturate, hence went back to a PEEP of 8. And increase his FiO2 to 55%. Patient is now undergoing hemodialysis, his chest x-ray is showing definite improvement, hence no need for bronchoscopy and evaluation of the left lung today. Still suctioning some bloody secretions from the endotracheal tube by respiratory. Labs were reviewed , hemoglobin is 7.3 today. Platelets are 101, INR is 1.1 electrolytes and renal profile were reviewed BUN is 24 creatinine is 3.24. Elevation of the left lung is definitely improved, small bilateral pleural effusions were noted On 08/02/2016, patient was reevaluated. I had to bronchoscope the patient late in the afternoon yesterday because of worsening chest x-ray and the patient continued to desaturate intermittently requiring increasing the FiO2 to 100%. Lavage was done of the left lower lobe lingula and left upper lobe, patient was placed on Decadron, cultures from the previous bronchoscopy came back positive for Pseudomonas, hence I started the patient today on Zosyn, and the patient is being followed by infectious disease on consultation. Patient remains on mechanical ventilation today, he is on a 50% and PEEP of 8 ABG showed a pO2 of 85 pCO2 of 33 pH of 7.48. Chest x-ray is showing better aeration of the left upper lobe lingula and left lower lobe, continues to have some atelectasis in the left lower lobe itself. It is not going to be dialyzed today, but will be dialyzed in a.m. BUN is 23 creatinine is 2.80 patient remains sedated on mechanical ventilation, however we plan to discontinue propofol briefly, assess his mental status today, and again he is not quite ready for extubation and weaning at this point. But this will definitely be addressed again tomorrow assuming his chest x-ray continues to show improvement. Objective - Vital Signs Vital signs: Vital Signs Temp 98.5 F 08/02/16 12:00 Pulse 56 L 08/02/16 13:00 Resp 17 08/02/16 13:00 BP 127/54 07/30/16 03:32 Pulse Ox 100 08/02/16 13:00 Intake & Output 08/01/16 08/02/16 08/02/16 18:59 06:59 18:59 Intake Total 686.698 733.345 372.631 Output Total 79 125 40 Balance 607.698 608.345 332.631 Weight 92 kg 92 kg Intake: IV 486 252 218.8 0.9 60 240 140 Dextrose 5% in Water 100 200 66.8 ml @ 618 mls/hr IV .Q10M ONE with Amiodarone 150 mg Rx#:[id number] Lactated Ringers 1,000 ml 160 @ 20 mls/hr IV .Q24H RINA Rx#:[id number] Pressure Bag 66 12 12 Intake, IV Titration 200.698 481.345 93.831 Amount Amiodarone 450 mg In 259.000 0.288 Dextrose 5% in Water 250 ml @ 1 MG/MIN 34.53 mls/ hr IV .Q7H31M RINA Rx#: [id number] Propofol 500 mg In Empty 200.698 222.345 93.543 Bag 1 bag @ Titrate IV . Q0M RINA Rx#:[id number] Oral 0 Tube Feeding 60 Output: Chest Tube Drainage 40 100 40 Chest Tube Lateral Chest 40 100 40 Urine 39 25 0 Other: Voiding Method Indwelling Catheter Indwelling Catheter # Voids 1 # Bowel Movements 1 1 ABP, PAP, CO, CI - Last Documented Arterial Blood Pressure 99/34 Pulmonary Artery Pressure 40/30 Cardiac Output 6.4 Cardiac Index 3.3 - Exam Gen: This is a 80-year-old male. Postoperative, intubated sedated and mechanically ventilated HEENT: Head is atraumatic, normocephalic. Pupils equal, round. Sclerae is anicteric. Conjunctiva pink. Mucous members of the mouth are moist. No thrush noted. And the tracheal tube is intact. NECK: Supple. No JVD. No lymphadenopathy. No thyromegaly. LUNGS: Coarse crackles mostly at the left base HEART: Normal S1 and S2, no gallops ABDOMEN: Soft. Bowel sounds are present. No masses. No tenderness. EXTREMITIES: No pedal edema. No calf tenderness. Total contact cast was removed. The ulceration to the left heel is clean without significant purulence noted drainage. Silver dressing is in place.fistula left arm intact Dialysis graft of the left arm is intact. NEUROLOGICAL: Cannot be assessed, patient is on propofol drip and sedated. - Labs CBC & Chem 7: 08/02/16 04:05 08/02/16 04:05 Labs: Abnormal Lab Results - Last 24 Hours (Table) 08/01/16 08/01/16 08/01/16 Range/Units 14:25 14:45 17:35 RBC (4.30-5.90) m/uL Hgb (13.0-17.5) gm/dL Hct (39.0-53.0) % RDW (11.5-15.5) % Plt Count (150-450) k/uL Neutrophils # (1.3-7.7) k/uL Lymphocytes # (1.0-4.8) k/uL APTT (22.0-30.0) sec ABG pH (7.35-7.45) ABG pCO2 (35-45) mmHg ABG Total CO2 (19-24) mmol/L ABG O2 Saturation (94-97) % BUN (9-20) mg/dL Creatinine (0.66-1.25) mg/dL Glucose (74-99) mg/dL POC Glucose (mg/dL) 63 L 103 H 112 H (75-99) mg/dL Calcium (8.4-10.2) mg/dL Total Bilirubin (0.2-1.3) mg/dL Alkaline Phosphatase (38-126) U/L Total Protein (6.3-8.2) g/dL Albumin (3.5-5.0) g/dL 08/01/16 08/01/16 08/01/16 Range/Units 20:32 21:59 23:28 RBC (4.30-5.90) m/uL Hgb (13.0-17.5) gm/dL Hct (39.0-53.0) % RDW (11.5-15.5) % Plt Count (150-450) k/uL Neutrophils # (1.3-7.7) k/uL Lymphocytes # (1.0-4.8) k/uL APTT (22.0-30.0) sec ABG pH (7.35-7.45) ABG pCO2 (35-45) mmHg ABG Total CO2 (19-24) mmol/L ABG O2 Saturation (94-97) % BUN (9-20) mg/dL Creatinine (0.66-1.25) mg/dL Glucose (74-99) mg/dL POC Glucose (mg/dL) 113 H 116 H 124 H (75-99) mg/dL Calcium (8.4-10.2) mg/dL Total Bilirubin (0.2-1.3) mg/dL Alkaline Phosphatase (38-126) U/L Total Protein (6.3-8.2) g/dL Albumin (3.5-5.0) g/dL 08/02/16 08/02/16 08/02/16 Range/Units 02:40 04:05 04:05 RBC 2.30 L (4.30-5.90) m/uL Hgb 7.2 L (13.0-17.5) gm/dL Hct 21.7 L (39.0-53.0) % RDW 19.3 H (11.5-15.5) % Plt Count 122 L (150-450) k/uL Neutrophils # 8.7 H (1.3-7.7) k/uL Lymphocytes # 0.2 L (1.0-4.8) k/uL APTT 31.6 H (22.0-30.0) sec ABG pH (7.35-7.45) ABG pCO2 (35-45) mmHg ABG Total CO2 (19-24) mmol/L ABG O2 Saturation (94-97) % BUN (9-20) mg/dL Creatinine (0.66-1.25) mg/dL Glucose (74-99) mg/dL POC Glucose (mg/dL) 129 H (75-99) mg/dL Calcium (8.4-10.2) mg/dL Total Bilirubin (0.2-1.3) mg/dL Alkaline Phosphatase (38-126) U/L Total Protein (6.3-8.2) g/dL Albumin (3.5-5.0) g/dL 08/02/16 08/02/16 08/02/16 Range/Units 04:05 04:42 06:11 RBC (4.30-5.90) m/uL Hgb (13.0-17.5) gm/dL Hct (39.0-53.0) % RDW (11.5-15.5) % Plt Count (150-450) k/uL Neutrophils # (1.3-7.7) k/uL Lymphocytes # (1.0-4.8) k/uL APTT (22.0-30.0) sec ABG pH (7.35-7.45) ABG pCO2 (35-45) mmHg ABG Total CO2 (19-24) mmol/L ABG O2 Saturation (94-97) % BUN 23 H (9-20) mg/dL Creatinine 2.80 H (0.66-1.25) mg/dL Glucose 120 H (74-99) mg/dL POC Glucose (mg/dL) 131 H 131 H (75-99) mg/dL Calcium 8.1 L (8.4-10.2) mg/dL Total Bilirubin 1.5 H (0.2-1.3) mg/dL Alkaline Phosphatase 177 H (38-126) U/L Total Protein 4.7 L (6.3-8.2) g/dL Albumin 2.5 L (3.5-5.0) g/dL 08/02/16 Range/Units 08:55 RBC (4.30-5.90) m/uL Hgb (13.0-17.5) gm/dL Hct (39.0-53.0) % RDW (11.5-15.5) % Plt Count (150-450) k/uL Neutrophils # (1.3-7.7) k/uL Lymphocytes # (1.0-4.8) k/uL APTT (22.0-30.0) sec ABG pH 7.48 H (7.35-7.45) ABG pCO2 33 L (35-45) mmHg ABG Total CO2 25 H (19-24) mmol/L ABG O2 Saturation 97.2 H (94-97) % BUN (9-20) mg/dL Creatinine (0.66-1.25) mg/dL Glucose (74-99) mg/dL POC Glucose (mg/dL) (75-99) mg/dL Calcium (8.4-10.2) mg/dL Total Bilirubin (0.2-1.3) mg/dL Alkaline Phosphatase (38-126) U/L Total Protein (6.3-8.2) g/dL Albumin (3.5-5.0) g/dL Microbiology - Last 24 Hours (Table) 08/01/16 16:15 Gram Stain - Preliminary Bronchial Washings - Left Bronchial Washings Culture - Preliminary Pseudomonas spec 07/31/16 05:55 Blood Culture - Preliminary Blood No Growth after 48 hours 07/31/16 05:55 Blood Culture - Preliminary Blood No Growth after 48 hours 08/01/16 16:15 Fungal Culture - Preliminary Bronchial Washings - Left 08/01/16 16:15 Acid Fast Bacilli Culture - Preliminary Bronchial Washings - Left Assessment and Plan Plan: Impression: 1 status post CABG, on mechanical ventilation, postoperative day # 4 2 acute pulmonary edema as noted on the chest x-ray, patient is a hemodialysis patient and his history of chronic renal disease. 3 history of mild aortic stenosis 4 history of mild LV dysfunction 5 history of chronic anemia 6 history of chronic renal failure on hemodialysis 7 history of hypertension 8 history of hyperlipidemia 9 history of right groin pseudoaneurysm following cardiac catheterization. 10 history of right-sided epistaxis felt to be related to previous a staphylococcal colonization, 11 history of rheumatoid arthritis 12 significant blood clots and organized clotting noted in the left mainstem bronchus causing left lung collapse, requiring bronchoscopy and lavage 2 so far in the last 4 days. However the patient will not continue to be bronchoscoped on 08/02. 13 acute ventilator associated pneumonia is strongly suspected, patient has Pseudomonas in his bronchial washing from the left lower lobe, hence I will initiate Zosyn and further antibiotics will be addressed by infectious disease on the case. Recommendation: Continue ventilatory support, continue to taper the FiO2 down, cut down to 5, awake and the patient's today, not ready for weaning at this point. Discussed the condition of the patient with family, and made aware of all the findings of the bronchoscopy and it is not certain whether the patient will need more bronchoscopies down the line or not. Will depend on how well that he could keep the left lung properly ventilated critical care time is 32 minutes. Time with Patient: Greater than 30
[2016-08-02] MEDS: PIPERACILLIN-TAZOBACTAM 3.375 GM in DEXTROSE/WATER 1 50ML.BAG IVPB SCH ×2 (14:12→21:30)
--- NOTE | 2016-08-02 15:21 | IR ---
EXAMINATION TYPE: IR cvc insert >=5 years DATE OF EXAM: 08/02/2016 1:03 PM COMPARISON: NONE HISTORY: Hypoxemia, congestive heart failure, needs long-term intravenous access for therapy FINDINGS: Maximal barrier technique was utilized. The skin overlying the right basilic vein was loca lized with ultrasound and noted to be compressible and patent by ultrasound. An ultrasound image was obtained and submitted on patient's chart. Sterile technique utilized with the ultrasound machine. T he skin overlying was prepped and draped and Lidocaine used for local anesthesia. A skin darwin was ma de with a scalpel. Access was gained to the vein under direct ultrasound guidance with a 21-gauge ne edle and a 0.018 inch wire was advanced. Access site was dilated with a peel-away sheath and the cat heter tailored to length. Catheter advanced centrally and a post procedure chest x-ray verified plac ement with the tip in the superior vena cava. Catheter was fixed to the skin with suture and a steri le dressing placed. Hemostasis achieved and the catheter was aspirated and flushed with sterile sali ne. The patient remained in stable condition. IMPRESSION: STATUS POST ULTRASOUND GUIDED PICC LINE PLACEMENT, READY FOR USE. THIS PROCEDURE WAS PER FORMED BY THE UNDERSIGNED.
--- NOTE | 2016-08-02 18:11 | P.PN ---
Subjective Principal diagnosis: cough This is a 80-year-old male known to infectious disease service as he has been treated for infection to his shunt on his left arm before as well as ulceration to his left heel. Patient states that he presented to [facility] because he was initially having epistaxis. This was on Friday. The bleeding was controlled and he was discharged home. He then returned on Friday as he woke up in the morning at 2 AM with a cough and shortness of breath that had been going on but continued to worsen. 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 He has been evaluated by cardiothoracic surgery and is scheduled for CABG on June 28. Patient does have history of end-stage renal disease on hemodialysis Friday and Friday and is followed by Dr. Fernandez. He denies any problems with his dialysis AV fistula in his left arm. [facility] under the care of Dr. Carey. He has a total contact cast to the left lower extremity which is scheduled to be removed today. Regarding his epistaxis, patient was seen by Dr. Chen on underwent flexible nasal endoscopy finding a right anterior septal ulcer. Dr. Lucas is following from pulmonary medicine. Upon review of his previous wound cultures, he does have history of MRSA. Patient does have history of rheumatoid arthritis on prednisone only. 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 He has been evaluated by interventional radiology and repairs been performed. He is doing well and folow up shows resolution of the pseudoaneurysm The cardiothoracic surgeries occurred. He did well but had some bleeding into his lungs. A bronchoscopy was done to remove blood clots. Cultures and biopsies in process. Nothing positive so far. He is somewhat hypertensive not hypotensive and did have dialysis today Objective - Vital Signs Vital signs: Vital Signs Temp 98.4 F 08/02/16 16:00 Pulse 52 L 08/02/16 17:00 Resp 17 08/02/16 17:00 BP 127/54 07/30/16 03:32 Pulse Ox 100 08/02/16 17:00 Intake & Output 08/01/16 08/02/16 08/02/16 18:59 06:59 18:59 Intake Total 686.698 733.345 699.577 Output Total 79 125 50 Balance 607.698 608.345 649.577 Weight 92 kg 92 kg Intake: IV 486 252 353.7 0.9 60 240 220 Dextrose 5% in Water 100 200 100.2 ml @ 618 mls/hr IV .Q10M ONE with Amiodarone 150 mg Rx#:[id number] Lactated Ringers 1,000 ml 160 @ 20 mls/hr IV .Q24H RINA Rx#:[id number] Pressure Bag 66 12 33.5 Intake, IV Titration 200.698 481.345 275.877 Amount Amiodarone 450 mg In 259.000 102.985 Dextrose 5% in Water 250 ml @ 1 MG/MIN 34.53 mls/ hr IV .Q7H31M RINA Rx#: [id number] Propofol 500 mg In Empty 200.698 222.345 172.892 Bag 1 bag @ Titrate IV . Q0M RINA Rx#:[id number] Oral 0 Tube Feeding 70 Output: Chest Tube Drainage 40 100 50 Chest Tube Lateral Chest 40 100 50 Urine 39 25 0 Other: Voiding Method Indwelling Catheter Indwelling Catheter Indwelling Catheter # Voids 1 # Bowel Movements 1 1 ABP, PAP, CO, CI - Last Documented Arterial Blood Pressure 112/40 Pulmonary Artery Pressure 40/30 Cardiac Output 6.4 Cardiac Index 3.3 - Exam Gen: This is a 80-year-old male. Postoperative, intubated sedated and mechanically ventilated HEENT: Head is atraumatic, normocephalic. Pupils equal, round. Sclerae is anicteric. Conjunctiva pink. Mucous members of the mouth are moist. No thrush noted. NECK: Supple. No JVD. No lymphadenopathy. No thyromegaly. LUNGS: Coarse crackles throughout the lung cotto HEART: Regular rate and rhythm. No murmur. ABDOMEN: Soft. Bowel sounds are present. No masses. No tenderness. EXTREMITIES: No pedal edema. No calf tenderness. Total contact cast was removed. The ulceration to the left heel is clean without significant purulence noted drainage. Silver dressing is in place.fistula left arm intact Dialysis graft of the left arm is intact. NEUROLOGICAL: Sedated but responding - Labs CBC & Chem 7: 04/14/17 04:05 08/02/16 04:05 Labs: Abnormal Lab Results - Last 24 Hours (Table) 08/01/16 08/01/16 08/01/16 Range/Units 20:32 21:59 23:28 RBC (4.30-5.90) m/uL Hgb (13.0-17.5) gm/dL Hct (39.0-53.0) % RDW (11.5-15.5) % Plt Count (150-450) k/uL Neutrophils # (1.3-7.7) k/uL Lymphocytes # (1.0-4.8) k/uL APTT (22.0-30.0) sec ABG pH (7.35-7.45) ABG pCO2 (35-45) mmHg ABG Total CO2 (19-24) mmol/L ABG O2 Saturation (94-97) % BUN (9-20) mg/dL Creatinine (0.66-1.25) mg/dL Glucose (74-99) mg/dL POC Glucose (mg/dL) 113 H 116 H 124 H (75-99) mg/dL Calcium (8.4-10.2) mg/dL Total Bilirubin (0.2-1.3) mg/dL Alkaline Phosphatase (38-126) U/L Total Protein (6.3-8.2) g/dL Albumin (3.5-5.0) g/dL 08/02/16 08/02/16 08/02/16 Range/Units 02:40 04:05 04:05 RBC 2.30 L (4.30-5.90) m/uL Hgb 7.2 L (13.0-17.5) gm/dL Hct 21.7 L (39.0-53.0) % RDW 19.3 H (11.5-15.5) % Plt Count 122 L (150-450) k/uL Neutrophils # 8.7 H (1.3-7.7) k/uL Lymphocytes # 0.2 L (1.0-4.8) k/uL APTT 31.6 H (22.0-30.0) sec ABG pH (7.35-7.45) ABG pCO2 (35-45) mmHg ABG Total CO2 (19-24) mmol/L ABG O2 Saturation (94-97) % BUN (9-20) mg/dL Creatinine (0.66-1.25) mg/dL Glucose (74-99) mg/dL POC Glucose (mg/dL) 129 H (75-99) mg/dL Calcium (8.4-10.2) mg/dL Total Bilirubin (0.2-1.3) mg/dL Alkaline Phosphatase (38-126) U/L Total Protein (6.3-8.2) g/dL Albumin (3.5-5.0) g/dL 08/02/16 08/02/16 08/02/16 Range/Units 04:05 04:42 06:11 RBC (4.30-5.90) m/uL Hgb (13.0-17.5) gm/dL Hct (39.0-53.0) % RDW (11.5-15.5) % Plt Count (150-450) k/uL Neutrophils # (1.3-7.7) k/uL Lymphocytes # (1.0-4.8) k/uL APTT (22.0-30.0) sec ABG pH (7.35-7.45) ABG pCO2 (35-45) mmHg ABG Total CO2 (19-24) mmol/L ABG O2 Saturation (94-97) % BUN 23 H (9-20) mg/dL Creatinine 2.80 H (0.66-1.25) mg/dL Glucose 120 H (74-99) mg/dL POC Glucose (mg/dL) 131 H 131 H (75-99) mg/dL Calcium 8.1 L (8.4-10.2) mg/dL Total Bilirubin 1.5 H (0.2-1.3) mg/dL Alkaline Phosphatase 177 H (38-126) U/L Total Protein 4.7 L (6.3-8.2) g/dL Albumin 2.5 L (3.5-5.0) g/dL 08/02/16 Range/Units 08:55 RBC (4.30-5.90) m/uL Hgb (13.0-17.5) gm/dL Hct (39.0-53.0) % RDW (11.5-15.5) % Plt Count (150-450) k/uL Neutrophils # (1.3-7.7) k/uL Lymphocytes # (1.0-4.8) k/uL APTT (22.0-30.0) sec ABG pH 7.48 H (7.35-7.45) ABG pCO2 33 L (35-45) mmHg ABG Total CO2 25 H (19-24) mmol/L ABG O2 Saturation 97.2 H (94-97) % BUN (9-20) mg/dL Creatinine (0.66-1.25) mg/dL Glucose (74-99) mg/dL POC Glucose (mg/dL) (75-99) mg/dL Calcium (8.4-10.2) mg/dL Total Bilirubin (0.2-1.3) mg/dL Alkaline Phosphatase (38-126) U/L Total Protein (6.3-8.2) g/dL Albumin (3.5-5.0) g/dL Microbiology - Last 24 Hours (Table) 08/01/16 16:15 Gram Stain - Preliminary Bronchial Washings - Left Bronchial Washings Culture - Preliminary Pseudomonas spec 07/31/16 05:55 Blood Culture - Preliminary Blood No Growth after 48 hours 07/31/16 05:55 Blood Culture - Preliminary Blood No Growth after 48 hours 08/01/16 16:15 Fungal Culture - Preliminary Bronchial Washings - Left 08/01/16 16:15 Acid Fast Bacilli Culture - Preliminary Bronchial Washings - Left Laboratory Results WBC 9.4 k/uL (3.8-10.6) 08/02/16 04:05 RBC 2.30 m/uL (4.30-5.90) L 08/02/16 04:05 Hgb 7.2 gm/dL (13.0-17.5) L 08/02/16 04:05 Hct 21.7 % (39.0-53.0) L 08/02/16 04:05 MCV 94.4 fL (80.0-100.0) 08/02/16 04:05 MCH 31.4 pg (25.0-35.0) 08/02/16 04:05 MCHC 33.3 g/dL (31.0-37.0) 08/02/16 04:05 RDW 19.3 % (11.5-15.5) H 08/02/16 04:05 Plt Count 122 k/uL (150-450) L 08/02/16 04:05 Neutrophils % 93 % 08/02/16 04:05 Neutrophils % (Manual) 81.0 % 07/29/16 14:10 Band Neutrophils % 4.0 % 07/29/16 14:10 Lymphocytes % 2 % 08/02/16 04:05 Lymphocytes % (Manual) 9.0 % 07/29/16 14:10 Monocytes % 4 % 08/02/16 04:05 Monocytes % (Manual) 2.0 % 07/29/16 14:10 Eosinophils % 0 % 08/02/16 04:05 Eosinophils % (Manual) 4.0 % 07/29/16 14:10 Basophils % 0 % 08/02/16 04:05 Myelocytes % 0.5 % 07/26/16 06:10 Neutrophils # 8.7 k/uL (1.3-7.7) H 08/02/16 04:05 Neutrophils # (Manual) 12.2 k/uL (1.3-7.7) H 07/29/16 14:10 Lymphocytes # 0.2 k/uL (1.0-4.8) L 08/02/16 04:05 Lymphocytes # (Manual) 1.3 k/uL (1.0-4.8) 07/29/16 14:10 Monocytes # 0.3 k/uL (0-1.0) 08/02/16 04:05 Monocytes # (Manual) 0.3 k/uL (0-1.0) 07/29/16 14:10 Eosinophils # 0.0 k/uL (0-0.7) 08/02/16 04:05 Eosinophils # (Manual) 0.6 k/uL (0-0.7) 07/29/16 14:10 Basophils # 0.0 k/uL (0-0.2) 08/02/16 04:05 Nucleated RBCs 0 /100 WBC (0-0) 07/29/16 14:10 Manual Slide Review Performed 07/26/16 06:10 Polychromasia Present 07/29/16 14:10 Hypochromasia Slight 08/02/16 04:05 Poikilocytosis Slight 08/02/16 04:05 Poikilocytosis (manual Present 07/26/16 06:10 Anisocytosis Slight 08/02/16 04:05 Macrocytosis Slight 08/02/16 04:05 PT 10.7 sec (9.0-12.0) 08/02/16 04:05 INR 1.1 (<1.1) 08/02/16 04:05 APTT 31.6 sec (22.0-30.0) H 08/02/16 04:05 Fibrinogen 206 mg/dL (200-500) 07/29/16 14:10 Sample Site A-LINE 08/02/16 08:55 ABG pH 7.48 (7.35-7.45) H 08/02/16 08:55 ABG pCO2 33 mmHg (35-45) L 08/02/16 08:55 ABG pO2 85 mmHg (83-108) 08/02/16 08:55 ABG HCO3 24 mmol/L (21-25) 08/02/16 08:55 ABG Total CO2 25 mmol/L (19-24) H 08/02/16 08:55 ABG O2 Saturation 97.2 % (94-97) H 08/02/16 08:55 ABG Base Excess 1.1 mmol/L 08/02/16 08:55 FiO2 50 % 08/02/16 08:55 Sodium 137 mmol/L (137-145) 08/02/16 04:05 Potassium 3.8 mmol/L (3.5-5.1) 08/02/16 04:05 Chloride 99 mmol/L (98-107) 08/02/16 04:05 Carbon Dioxide 26 mmol/L (22-30) 08/02/16 04:05 Anion Gap 12 mmol/L 08/02/16 04:05 BUN 23 mg/dL (9-20) H 08/02/16 04:05 Creatinine 2.80 mg/dL (0.66-1.25) H 08/02/16 04:05 Est GFR (MDRD) Af Amer 27 (>60 ml/min/1.73 sqM) 08/02/16 04:05 Est GFR (MDRD) Non-Af 22 (>60 ml/min/1.73 sqM) 08/02/16 04:05 Glucose 120 mg/dL (74-99) H 08/02/16 04:05 POC Glucose (mg/dL) 131 mg/dL (75-99) H 08/02/16 06:11 POC Glu Exhibition Organiser ID 08/02/16 06:[address] Glu mg/dL 111 mg/dL 07/25/16 06:21 Hemoglobin A1c 5.5 % (4.2-6.1) 07/25/16 06:21 Calcium 8.1 mg/dL (8.4-10.2) L 08/02/16 04:05 Ionized Calcium Lance 4.5 mg/dL (4.5-5.3) 08/02/16 04:05 Phosphorus 4.4 mg/dL (2.5-4.5) 07/31/16 00:25 Magnesium 2.5 mg/dL (1.6-2.3) H 07/31/16 08:45 Iron 30 ug/dL (49-181) L 07/27/16 05:54 TIBC 273 ug/dL (261-462) 07/27/16 05:54 % Saturation 11.0 % (20-50) L 07/27/16 05:54 Total Bilirubin 1.5 mg/dL (0.2-1.3) H 08/02/16 04:05 AST 29 U/L (17-59) 08/02/16 04:05 ALT 36 U/L (21-72) 08/02/16 04:05 Alkaline Phosphatase 177 U/L (38-126) H 08/02/16 04:05 NT-Pro-B Natriuret Pep 48419 pg/mL 07/25/16 06:21 Total Protein 4.7 g/dL (6.3-8.2) L 08/02/16 04:05 Albumin 2.5 g/dL (3.5-5.0) L 08/02/16 04:05 Triglycerides 78 mg/dL (<150) 07/26/16 06:10 Cholesterol 143 mg/dL (<200) 07/26/16 06:10 LDL Cholesterol, Calc 72 mg/dL (0-99) 07/26/16 06:10 HDL Cholesterol 55 mg/dL (40-60) 07/26/16 06:10 TSH 3.000 mIU/L (0.465-4.680) 07/26/16 06:10 Urine Color Light Yellow 07/25/16 20:46 Urine Appearance Clear (Clear) 07/25/16 20:46 Urine pH 8.0 (5.0-8.0) 07/25/16 20:46 Ur Specific [place] 1.007 (1.001-1.035) 07/25/16 20:46 Urine Protein 2+ (Negative) H 07/25/16 20:46 Urine Glucose (UA) 1+ (Negative) H 07/25/16 20:46 Urine Ketones Negative (Negative) 07/25/16 20:46 Urine Blood Trace (Negative) H 07/25/16 20:46 Urine Nitrite Negative (Negative) 07/25/16 20:46 Urine Bilirubin Negative (Negative) 07/25/16 20:46 Urine Urobilinogen <2.0 mg/dL (<2.0) 07/25/16 20:46 Ur Leukocyte Esterase Negative (Negative) 07/25/16 20:46 Urine RBC <1 /hpf (0-5) 07/25/16 20:46 Urine WBC <1 /hpf (0-5) 07/25/16 20:46 Ur Squamous Epith Cells <1 /hpf (0-4) 07/25/16 20:46 Urine Bacteria Rare /hpf (None) H 07/25/16 20:46 Stool Occult Blood Positive (Negative) 07/25/16 20:46 Random Vancomycin 9.5 ug/mL 07/30/16 06:00 c-ANCA <1:20 Titer (<1:20) 07/31/16 08:45 p-ANCA <1:20 Titer (<1:20) 07/31/16 08:45 Hepatitis A IgM Ab NEGATIVE 07/26/16 06:10 Hep Bs Antigen Negative 07/26/16 06:10 Hep B Core IgM Ab NEGATIVE 07/26/16 06:10 Hep C IgG Ab Negative (Negative) 07/26/16 06:10 Blood Type B Positive 07/28/16 06:26 Blood Type Confirm B Positive 07/27/16 05:59 Blood Type Recheck CABO Indicated 07/28/16 06:26 Antibody Screen NEGATIVE 07/28/16 06:26 Crossmatch See Detail 07/28/16 06:26 Transfuse Plasma 07/29/2016 07/29/16 12:59 Transfuse Platelets 07/29/2016 07/29/16 13:00 Spec Expiration Date 07/31/2016 - 2326 07/28/16 06:26 Microbiology 08/01/16 16:15 Bronchial Washings - Left Gram Stain - Preliminary 08/01/16 16:15 Bronchial Washings - Left Bronchial Washings Culture - Preliminary Pseudomonas spec 07/31/16 05:55 Blood Blood Culture - Preliminary No Growth after 48 hours 07/31/16 05:55 Blood Blood Culture - Preliminary No Growth after 48 hours 08/01/16 16:15 Bronchial Washings - Left Fungal Culture - Preliminary 08/01/16 16:15 Bronchial Washings - Left Acid Fast Bacilli Culture - Preliminary 07/25/16 20:46 Urine,Voided Urine Culture - Final Assessment and Plan (1) Non-STEMI (non-ST elevated myocardial infarction) Status: Acute (2) Diabetic foot ulcer associated with type 2 diabetes mellitus Narrative/Plan: The total contact cast has now been removed by the team from the wound center. Local wound care has been applied to the ulceration. He is appropriately anxious for the upcoming cardiovascular surgery. The family is present. The family is reassured that the cardiac thoracic surgeon, Dr. Alcaraz is an excellent surgeon. We will proceed with surgery, Friday. Is having ultrasound of his right groin to make sure is not a pseudoaneurysm. Local wound care with the silver product to the foot ulcer is being utilized. It is about an infected ulceration and needs ongoing local wound care. The ulceration is not a contraindication for this procedure of coronary artery bypass grafting. We will monitor. Had pseudoaneurysm repair and other than discomfort is doing well As noted will have his cardiovascular surgery tomorrow. He is assured to the best of the ability. Case is discussed with the cardiothoracic team he received vancomycin for prophylaxis. Continue local wound care to the ulceration to his heel and offloaded. Local wound care as ordered with rena every Friday. Culture with Pseudomonas being isolated On Zosyn Status: Acute
[2016-08-02 18:43] LABS: Glucose,Whole Blood 150 mg/dL (75-99)
[2016-08-02 20:29] LABS: Glucose,Whole Blood 138 mg/dL (75-99)
[2016-08-02] MEDS: INSULIN LISPRO (humaLOG) 300 UNIT/3 ML VIAL SQ SCH ×2 (21:24→23:49)
[2016-08-02] MEDS: SODIUM CHLORIDE 0.9% 1,000 ML IV SCH (21:24)
[2016-08-02] MEDS: AMIODARONE 200 MG TAB PO SCH (21:25)
[2016-08-02] MEDS: METOPROLOL TARTRATE 12.5 MG TAB PO SCH (21:25)
[2016-08-02] MEDS: SENNOSIDES-DOCUSATE SODIUM 1 EACH TAB PO SCH (21:30)
[2016-08-02 23:49] LABS: Glucose,Whole Blood 133 mg/dL (75-99)
[2016-08-03] MEDS: PROPOFOL 500 MG in EMPTY BAG 1 BAG IV SCH ×6 (02:46→14:48)
[2016-08-03] MEDS: IPRATROPIUM-ALBUTEROL 3 ML NEB INHALATION SCH ×6 (03:12→23:17)
[2016-08-03] MEDS: HYDROcodone/APAP 5-325MG 1 EACH TAB PO PRN ×2 (03:39→20:11)
[2016-08-03] MEDS: INSULIN LISPRO (humaLOG) 300 UNIT/3 ML VIAL SQ SCH ×5 (03:46→20:09)
[2016-08-03 03:48] LABS: Glucose,Whole Blood 149 mg/dL (75-99)
[2016-08-03 05:16] LABS: Anisocytosis Slight; Basophils % (A) 0 %; CH 30.4; CHCM 32.3; Eosinophils % (A) 0 %; HCT 21.6 % (39.0-53.0); HDW 3.35; HGB 7.1 gm/dL (13.0-17.5); Hypochromasia Slight; Luc % (Auto) 1; Lymphocytes # (A) 0.2 k/uL (1.0-4.8); Lymphocytes % (A) 2 %; MCH 31.4 pg (25.0-35.0); MCHC 33.1 g/dL (31.0-37.0); MCV 94.9 fL (80.0-100.0); Macrocytosis Slight; Mean Platelet Volume 8.3; Monocytes # (A) 0.3 k/uL (0-1.0); Monocytes % (A) 4 %; Neutrophils # (A) 7.7 k/uL (1.3-7.7); Neutrophils % (A) 93 %; RBC 2.27 m/uL (4.30-5.90); RDW 18.4 % (11.5-15.5); WBC 8.3 k/uL (3.8-10.6); WBC (Perox) 9.04
[2016-08-03 05:22] LABS: Ionized Calcium 4.2 mg/dL (4.5-5.3)
[2016-08-03 05:33] LABS: Magnesium 2.6 mg/dL (1.6-2.3); Total Bilirubin 1.2 mg/dL (0.2-1.3)
[2016-08-03 05:44] LABS: Phosphorous 8.1 mg/dL (2.5-4.5)
[2016-08-03] MEDS: DEXAMETHASONE SOD PHOSPHATE 4 MG/ML 1 ML VIAL IV SCH ×3 (06:06→18:11)
--- NOTE | 2016-08-03 08:02 | XR ---
EXAMINATION TYPE: XR chest 1V portable DATE OF EXAM: 08/03/2016 6:56 AM COMPARISON: Prior chest x-ray 02 August 2016 HISTORY: Post cardiac surgery TECHNIQUE: Single frontal view of the chest is obtained. FINDINGS: Endotracheal tube, NG tube, left chest tube, right-sided PICC line, overlying cardiac lead s are present and overlying similar positions. No sizable pneumothorax is evident. Patchy basilar den sity persists, the heart remains enlarged. Interstitium is increased. IMPRESSION: Similar findings, correlate for congestive heart failure, pneumonia not excluded. Additi onal follow-up recommended.
[2016-08-03 08:04] LABS: Glucose,Whole Blood 138 mg/dL (75-99)
[2016-08-03] MEDS: CALCIUM ACETATE 667 MG CAP PO SCH ×3 (08:45→16:58)
[2016-08-03] MEDS: HEPARIN SODIUM,PORCINE 5,000 UNIT/ML 1 ML VIAL SQ SCH ×2 (08:45→16:13)
[2016-08-03] MEDS: ATORVASTATIN 40 MG TAB PO SCH (08:46)
[2016-08-03] MEDS: AMIODARONE 200 MG TAB PO SCH ×2 (08:46→20:09)
[2016-08-03] MEDS: ASPIRIN 81 MG CHEW PO SCH (08:46)
[2016-08-03] MEDS: CHLORHEXIDINE GLUCONATE 15 ML CUP MUCOUS MEM SCH ×2 (08:46→20:09)
[2016-08-03] MEDS: PANTOPRAZOLE 40 MG/10 ML VIAL IVP SCH (08:47)
[2016-08-03] MEDS: METOPROLOL TARTRATE 12.5 MG TAB PO SCH ×2 (08:53→20:10)
[2016-08-03] MEDS: PIPERACILLIN-TAZOBACTAM 3.375 GM in DEXTROSE/WATER 1 50ML.BAG IVPB SCH ×2 (08:54→20:10)
[2016-08-03 10:20] LABS: ABG Base Excess -0.2 mmol/L; ABG HCO3 23 mmol/L (21-25); ABG PCO2 29 mmHg (35-45); ABG PO2 113 mmHg (83-108); ABG TCO2 24 mmol/L (19-24)
--- NOTE | 2016-08-03 11:01 | P.PN ---
Subjective Principal diagnosis: Non-ST elevation myocardial infarction. POD #5 non-aortic clamp off pump double coronary artery bypass grafting using the left internal mammary artery to the left anterior descending artery and reverse saphenous vein graft from the aorta to the posterior descending artery. Endoscopic harvesting of the right greater saphenous vein. Intraoperative transesophageal echocardiogram and epi-aortic scanning. Intraoperative graft flow measurements using the ModiFacestim machine. Currently sedated on the ventilator. No new issues overnight. Objective - Vital Signs Vital signs: Vital Signs Temp 97.3 F L 08/03/16 08:00 Pulse 63 08/03/16 10:00 Resp 13 08/03/16 10:00 BP 124/58 08/03/16 08:00 Pulse Ox 97 08/03/16 10:00 Intake & Output 08/02/16 08/03/16 08/03/16 18:59 06:59 18:59 Intake Total 735.586 771.765 331.5 Output Total 50 143 12 Balance 685.586 628.765 319.5 Weight 92 kg 94.3 kg Intake: IV 376.7 156 69 0.9 240 120 60 Dextrose 5% in Water 100 100.2 ml @ 618 mls/hr IV .Q10M ONE with Amiodarone 150 mg Rx#:[id number] Pressure Bag 36.5 36 9 Intake, IV Titration 288.886 185.765 112.5 Amount Amiodarone 450 mg In 102.985 Dextrose 5% in Water 250 ml @ 1 MG/MIN 34.53 mls/ hr IV .Q7H31M RINA Rx#: [id number] Piperacillin-Tazobactam 3 50.0 12.5 .375 gm In Dextrose/Water 1 50ml.bag @ 12.5 mls/hr IVPB Q12HR RINA Rx#: [id number] Propofol 500 mg In Empty 185.901 135.765 100 Bag 1 bag @ Titrate IV . Q0M RINA Rx#:[id number] Oral 0 Tube Feeding 70 340 120 Other 90 30 Output: Chest Tube Drainage 50 80 0 Chest Tube Lateral Chest 50 80 0 Urine 0 63 12 Other: Voiding Method Indwelling Catheter Indwelling Catheter Indwelling Catheter # Bowel Movements 1 1 ABP, PAP, CO, CI - Last Documented Arterial Blood Pressure 136/53 Pulmonary Artery Pressure 40/30 Cardiac Output 6.4 Cardiac Index 3.3 - Constitutional General appearance: Present: no acute distress - Respiratory Details: Lung sounds diminished bilaterally. Resp even/non-labored on mechanical ventilation. Current settings AC TV 550, 50% FiO2, RR 16, PEEP 5. Left pleural CT with 60 ml serous drainage in last 8 hours, 260 ml in the last 24 hours. - Cardiovascular Details: S1/S2 present. Reg rate/rhythm, SB on telemetry. Sternum stable. Teds/SCDs present. - Gastrointestinal Gastrointestinal Comment(s): Abd soft/NT/ND. Active BS x 4 quad. Positive BM this AM. Tube feeding: Nepro at goal 30 ml/hr. - Genitourinary Genitourinary Comment(s): Sparks present draining clear, yellow urine. Left upper extremity AV fistula with postive bruit/thrill. - Integumentary Integumentary Comment(s): Ant chest covered with dry, intact silver dsg. Right lower ext EVH site well approximated. - Psychiatric Psychiatric Comment(s): Currently sedated on vent. Does wake up and follow commands during sedation holiday. - Allied health notes Allied health notes reviewed: nursing - Labs CBC & Chem 7: 08/03/16 05:00 08/03/16 05:00 Labs: Abnormal Lab Results - Last 24 Hours (Table) 08/02/16 08/02/16 08/02/16 Range/Units 18:39 20:27 23:47 RBC (4.30-5.90) m/uL Hgb (13.0-17.5) gm/dL Hct (39.0-53.0) % RDW (11.5-15.5) % Plt Count (150-450) k/uL Lymphocytes # (1.0-4.8) k/uL ABG pH (7.35-7.45) ABG pCO2 (35-45) mmHg ABG pO2 (83-108) mmHg ABG O2 Saturation (94-97) % Sodium (137-145) mmol/L BUN (9-20) mg/dL Creatinine (0.66-1.25) mg/dL Glucose (74-99) mg/dL POC Glucose (mg/dL) 150 H 138 H 133 H (75-99) mg/dL Calcium (8.4-10.2) mg/dL Ionized Calcium Lance (4.5-5.3) mg/dL Phosphorus (2.5-4.5) mg/dL Magnesium (1.6-2.3) mg/dL Alkaline Phosphatase (38-126) U/L Total Protein (6.3-8.2) g/dL Albumin (3.5-5.0) g/dL Crossmatch 08/03/16 08/03/16 08/03/16 Range/Units 03:46 05:00 05:00 RBC 2.27 L (4.30-5.90) m/uL Hgb 7.1 L (13.0-17.5) gm/dL Hct 21.6 L (39.0-53.0) % RDW 18.4 H (11.5-15.5) % Plt Count 127 L (150-450) k/uL Lymphocytes # 0.2 L (1.0-4.8) k/uL ABG pH (7.35-7.45) ABG pCO2 (35-45) mmHg ABG pO2 (83-108) mmHg ABG O2 Saturation (94-97) % Sodium 134 L (137-145) mmol/L BUN 47 H (9-20) mg/dL Creatinine 3.40 H (0.66-1.25) mg/dL Glucose 136 H (74-99) mg/dL POC Glucose (mg/dL) 149 H (75-99) mg/dL Calcium 8.0 L (8.4-10.2) mg/dL Ionized Calcium Lance 4.2 L (4.5-5.3) mg/dL Phosphorus 8.1 H* (2.5-4.5) mg/dL Magnesium 2.6 H (1.6-2.3) mg/dL Alkaline Phosphatase 171 H (38-126) U/L Total Protein 5.0 L (6.3-8.2) g/dL Albumin 2.6 L (3.5-5.0) g/dL Crossmatch 08/03/16 08/03/16 08/03/16 Range/Units 08:00 08:02 09:10 RBC (4.30-5.90) m/uL Hgb (13.0-17.5) gm/dL Hct (39.0-53.0) % RDW (11.5-15.5) % Plt Count (150-450) k/uL Lymphocytes # (1.0-4.8) k/uL ABG pH 7.50 H (7.35-7.45) ABG pCO2 29 L (35-45) mmHg ABG pO2 113 H (83-108) mmHg ABG O2 Saturation 99.0 H (94-97) % Sodium (137-145) mmol/L BUN (9-20) mg/dL Creatinine (0.66-1.25) mg/dL Glucose (74-99) mg/dL POC Glucose (mg/dL) 138 H (75-99) mg/dL Calcium (8.4-10.2) mg/dL Ionized Calcium Lance (4.5-5.3) mg/dL Phosphorus (2.5-4.5) mg/dL Magnesium (1.6-2.3) mg/dL Alkaline Phosphatase (38-126) U/L Total Protein (6.3-8.2) g/dL Albumin (3.5-5.0) g/dL Crossmatch See Detail Microbiology - Last 24 Hours (Table) 08/01/16 16:15 Gram Stain - Final Bronchial Washings - Left Bronchial Washings Culture - Final Pseudomonas aeruginosa 07/31/16 05:55 Blood Culture - Preliminary Blood No Growth after 72 hours 07/31/16 05:55 Blood Culture - Preliminary Blood No Growth after 72 hours 08/01/16 16:15 Acid Fast Bacilli Smear - Final Bronchial Washings - Left Acid Fast Bacilli Culture - Preliminary - Imaging and Cardiology Chest x-ray: report reviewed, image reviewed Assessment and Plan (1) Non-STEMI (non-ST elevated myocardial infarction) Status: Acute (2) Hypertension Status: Acute (3) Hyperlipidemia Status: Acute (4) End-stage renal disease on hemodialysis Status: Acute Plan: 1. Continue aspirin, Lipitor, heparin SQ, lopressor. Continue to hold Plavix for now. 2. Continue amiodarone for Afib prophylaxis. 3. Vent management per pulmonology. Wean O2 as tolerated. Plan for wean after dialysis. 4. Dialysis today. Phoslo added per nephrology 5. Tube feedings to continue until extubated. 6. Will be given 1 unit PRBCs during dialysis. 7. Will continue to monitor labs, chest x-rays. 8. Insulin drip, diabetic management per primary service. 9. GI/DVT prophylaxis. 10. Will reapply hard boot to left lower extremity when patient extubated and ambulatory 11. More recommendations as patient progresses. Time with Patient: Greater than 30
--- NOTE | 2016-08-03 11:42 | P.PN ---
Subjective Principal diagnosis: Status post CABG postoperative day # 5 This is a 80-year-old white male with history of multiple medical problems including hypertension, previous ischemic heart disease and mild aortic stenosis. End-stage renal disease on hemodialysis. History of rheumatoid arthritis, patient was admitted recently with chest pain, cardiac enzymes were suggestive of non-ST elevation myocardial infarction, cardiac cath showed significant coronary artery disease with critical lesion in the proximal LAD also the proximal RCA. Today, the patient underwent myocardial revascularization by Dr. Alcaraz, and he was placed on mechanical ventilation postoperatively, seen in the ICU for consultation and postoperative ventilator management. Presently, the patient is on 100% FiO2, assist control rate of 12, PEEP of 5, and tidal volume of 500. Initial ABG showed a pO2 of 364, pCO2 of 42 pH of 7.32. However shortly after patient was placed on a 50% FiO2, and he was noted to have significant drop in his saturation based on pulse oximetry. Repeat ABG showed worsening oxygenation with a pO2 of 46 pCO2 of 50 and pH of 7.28. Hence placed back on 100%, increased his rate up to 16, and increased the PEEP to 10. Follow-up chest x-ray showed worsening pulmonary edema, remind you patient is a hemodialysis patient. Follow-up ABG is pending. Patient is presently fully sedated, and in no distress. Reevaluated today on 07/30/2016, patient is status post off pump double coronary artery bypass grafting using L REJI to LAD, and reverse saphenous vein graft from the aorta to the posterior descending artery.patient remains on mechanical ventilation, chest x-ray is showing worsening picture of pulmonary edema, however the possibility of bleeding into the left midlung area and left lower lobe is not entirely ruled out there seems to be a worsening consolidation in the area of the left midlung and left lower lobe, hence may consider bronchoscopy on this patient. In the meantime, patient is being ultrafiltrate it today, and hopefully that will make a significant improvement on the chest x- ray appearance, and may help oxygenation.labs were reviewed, WBC count is 9.8 hemoglobin is 7.6 it was 6.5 earlier today,patient received a total of 5 units of packed RBCs since admission, 2 units of fresh frozen plasma, and 3 units of platelets. Reevaluated today on 07/31/2016, patient underwent another bronchoscopy today although his chest x-ray was showing some improvement compared to the chest x- ray yesterday after bronchoscopy. There was evidence of more aeration of the left upper lobe and lingula on the chest x-ray today. Today I was able to clear plugs from the left lower lobe bronchus, and from the lingular bronchus. Throughout the procedure there was some oozing of blood, and the mucosa of the bronchial tube was noted to be very fragile and bled easily. No biopsies were done. But suctioning and lavages of the left lower lobe and lingula was performed. In the meantime the patient remains on mechanical ventilations, today I increased his tidal volume up to 550 kept him on assist control rate of 16 I increased the flow rates up to 70, and FiO2 will be titrated down from 100 % during the bronchoscopy to as low as 50% as tolerated, and PEEP remains at 10 for the time being. Labs were reviewed, hemoglobin is 7.9 platelets are 114. Electrolytes were reviewed BUN is 31 creatinine is 4.29. On 08/01/2016, patient remains on mechanical ventilation, we were able earlier today to cut down the FiO2 to 50%, and PEEP was down to as low as 5%. However as the hemodialysis was started, patient began to desaturate, hence went back to a PEEP of 8. And increase his FiO2 to 55%. Patient is now undergoing hemodialysis, his chest x-ray is showing definite improvement, hence no need for bronchoscopy and evaluation of the left lung today. Still suctioning some bloody secretions from the endotracheal tube by respiratory. Labs were reviewed , hemoglobin is 7.3 today. Platelets are 101, INR is 1.1 electrolytes and renal profile were reviewed BUN is 24 creatinine is 3.24. Elevation of the left lung is definitely improved, small bilateral pleural effusions were noted On 08/02/2016, patient was reevaluated. I had to bronchoscope the patient late in the afternoon yesterday because of worsening chest x-ray and the patient continued to desaturate intermittently requiring increasing the FiO2 to 100%. Lavage was done of the left lower lobe lingula and left upper lobe, patient was placed on Decadron, cultures from the previous bronchoscopy came back positive for Pseudomonas, hence I started the patient today on Zosyn, and the patient is being followed by infectious disease on consultation. Patient remains on mechanical ventilation today, he is on a 50% and PEEP of 8 ABG showed a pO2 of 85 pCO2 of 33 pH of 7.48. Chest x-ray is showing better aeration of the left upper lobe lingula and left lower lobe, continues to have some atelectasis in the left lower lobe itself. It is not going to be dialyzed today, but will be dialyzed in a.m. BUN is 23 creatinine is 2.80 patient remains sedated on mechanical ventilation, however we plan to discontinue propofol briefly, assess his mental status today, and again he is not quite ready for extubation and weaning at this point. But this will definitely be addressed again tomorrow assuming his chest x-ray continues to show improvement. Reevaluated today on 08/03/2016, remains on mechanical ventilation, chest x-ray is showing definite improvement in the aeration of the left lung, patient will not eat to be bronchoscope today. However I do plan to consider a weaning trial on this patient today after hemodialysis. If tolerated may even proceeded to extubating the patient. ABG this morning showed a pO2 of 113 pCO2 of 29 pH of 7.50 hence I cut down the rate to 12, I also cut down the PEEP from 10-5. CBC showed hemoglobin of 7.1, I will leave it up to the surgeons to decide whether the patient needs to be transfused at this point. This may be done at the time of his dialysis. Electrolytes were reviewed BUN is 47 creatinine is 3.40. Chest x-ray as noted above. Objective - Vital Signs Vital signs: Vital Signs Temp 97.3 F L 08/03/16 08:00 Pulse 64 08/03/16 11:17 Resp 16 08/03/16 11:00 BP 124/58 08/03/16 08:00 Pulse Ox 99 08/03/16 11:00 Intake & Output 08/02/16 08/03/16 08/03/16 18:59 06:59 18:59 Intake Total 735.586 771.765 462.5 Output Total 50 143 18 Balance 685.586 628.765 444.5 Weight 92 kg 94.3 kg Intake: IV 376.7 156 115 0.9 240 120 100 Dextrose 5% in Water 100 100.2 ml @ 618 mls/hr IV .Q10M ONE with Amiodarone 150 mg Rx#:[id number] Pressure Bag 36.5 36 15 Intake, IV Titration 288.886 185.765 137.5 Amount Amiodarone 450 mg In 102.985 Dextrose 5% in Water 250 ml @ 1 MG/MIN 34.53 mls/ hr IV .Q7H31M RINA Rx#: [id number] Piperacillin-Tazobactam 3 50.0 37.5 .375 gm In Dextrose/Water 1 50ml.bag @ 12.5 mls/hr IVPB Q12HR RINA Rx#: [id number] Propofol 500 mg In Empty 185.901 135.765 100 Bag 1 bag @ Titrate IV . Q0M RINA Rx#:[id number] Oral 0 Tube Feeding 70 340 180 Other 90 30 Output: Chest Tube Drainage 50 80 0 Chest Tube Lateral Chest 50 80 0 Urine 0 63 18 Other: Voiding Method Indwelling Catheter Indwelling Catheter Indwelling Catheter # Bowel Movements 1 1 ABP, PAP, CO, CI - Last Documented Arterial Blood Pressure 140/56 Pulmonary Artery Pressure 40/30 Cardiac Output 6.4 Cardiac Index 3.3 - Exam Gen: This is a 80-year-old male. intubated sedated and mechanically ventilated HEENT: Head is atraumatic, normocephalic. Pupils equal, round. Sclerae is anicteric. Conjunctiva pink. Mucous members of the mouth are moist. No thrush noted. And the tracheal tube is intact. NECK: Supple. No JVD. No lymphadenopathy. No thyromegaly. LUNGS: Coarse crackles mostly at the left base HEART: Normal S1 and S2, no gallops ABDOMEN: Soft. Bowel sounds are present. No masses. No tenderness. EXTREMITIES: No pedal edema. No calf tenderness. Total contact cast was removed. The ulceration to the left heel is clean without significant purulence noted drainage. Silver dressing is in place.fistula left arm intact Dialysis graft of the left arm is intact. NEUROLOGICAL: Cannot be assessed, patient is on propofol drip and sedated. - Labs CBC & Chem 7: 08/03/16 05:00 08/03/16 05:00 Labs: Abnormal Lab Results - Last 24 Hours (Table) 08/02/16 08/02/16 08/02/16 Range/Units 18:39 20:27 23:47 RBC (4.30-5.90) m/uL Hgb (13.0-17.5) gm/dL Hct (39.0-53.0) % RDW (11.5-15.5) % Plt Count (150-450) k/uL Lymphocytes # (1.0-4.8) k/uL ABG pH (7.35-7.45) ABG pCO2 (35-45) mmHg ABG pO2 (83-108) mmHg ABG O2 Saturation (94-97) % Sodium (137-145) mmol/L BUN (9-20) mg/dL Creatinine (0.66-1.25) mg/dL Glucose (74-99) mg/dL POC Glucose (mg/dL) 150 H 138 H 133 H (75-99) mg/dL Calcium (8.4-10.2) mg/dL Ionized Calcium Lance (4.5-5.3) mg/dL Phosphorus (2.5-4.5) mg/dL Magnesium (1.6-2.3) mg/dL Alkaline Phosphatase (38-126) U/L Total Protein (6.3-8.2) g/dL Albumin (3.5-5.0) g/dL Crossmatch 08/03/16 08/03/16 08/03/16 Range/Units 03:46 05:00 05:00 RBC 2.27 L (4.30-5.90) m/uL Hgb 7.1 L (13.0-17.5) gm/dL Hct 21.6 L (39.0-53.0) % RDW 18.4 H (11.5-15.5) % Plt Count 127 L (150-450) k/uL Lymphocytes # 0.2 L (1.0-4.8) k/uL ABG pH (7.35-7.45) ABG pCO2 (35-45) mmHg ABG pO2 (83-108) mmHg ABG O2 Saturation (94-97) % Sodium 134 L (137-145) mmol/L BUN 47 H (9-20) mg/dL Creatinine 3.40 H (0.66-1.25) mg/dL Glucose 136 H (74-99) mg/dL POC Glucose (mg/dL) 149 H (75-99) mg/dL Calcium 8.0 L (8.4-10.2) mg/dL Ionized Calcium Lance 4.2 L (4.5-5.3) mg/dL Phosphorus 8.1 H* (2.5-4.5) mg/dL Magnesium 2.6 H (1.6-2.3) mg/dL Alkaline Phosphatase 171 H (38-126) U/L Total Protein 5.0 L (6.3-8.2) g/dL Albumin 2.6 L (3.5-5.0) g/dL Crossmatch 08/03/16 08/03/16 08/03/16 Range/Units 08:00 08:02 09:10 RBC (4.30-5.90) m/uL Hgb (13.0-17.5) gm/dL Hct (39.0-53.0) % RDW (11.5-15.5) % Plt Count (150-450) k/uL Lymphocytes # (1.0-4.8) k/uL ABG pH 7.50 H (7.35-7.45) ABG pCO2 29 L (35-45) mmHg ABG pO2 113 H (83-108) mmHg ABG O2 Saturation 99.0 H (94-97) % Sodium (137-145) mmol/L BUN (9-20) mg/dL Creatinine (0.66-1.25) mg/dL Glucose (74-99) mg/dL POC Glucose (mg/dL) 138 H (75-99) mg/dL Calcium (8.4-10.2) mg/dL Ionized Calcium Lance (4.5-5.3) mg/dL Phosphorus (2.5-4.5) mg/dL Magnesium (1.6-2.3) mg/dL Alkaline Phosphatase (38-126) U/L Total Protein (6.3-8.2) g/dL Albumin (3.5-5.0) g/dL Crossmatch See Detail Microbiology - Last 24 Hours (Table) 08/01/16 16:15 Gram Stain - Final Bronchial Washings - Left Bronchial Washings Culture - Final Pseudomonas aeruginosa 07/31/16 05:55 Blood Culture - Preliminary Blood No Growth after 72 hours 07/31/16 05:55 Blood Culture - Preliminary Blood No Growth after 72 hours 08/01/16 16:15 Acid Fast Bacilli Smear - Final Bronchial Washings - Left Acid Fast Bacilli Culture - Preliminary Assessment and Plan Plan: Impression: 1 status post CABG, on mechanical ventilation, postoperative day # 5 2 acute pulmonary edema as noted on the chest x-ray, patient is a hemodialysis patient and his history of chronic renal disease. 3 history of mild aortic stenosis 4 history of mild LV dysfunction 5 history of chronic anemia 6 history of chronic renal failure on hemodialysis 7 history of hypertension 8 history of hyperlipidemia 9 history of right groin pseudoaneurysm following cardiac catheterization. 10 history of right-sided epistaxis felt to be related to previous a staphylococcal colonization, 11 history of rheumatoid arthritis 12 significant blood clots and organized clotting noted in the left mainstem bronchus causing left lung collapse, requiring bronchoscopy and lavage x3 so far in the last 5 days. However the patient will not need to be bronchoscoped on 08/02. And on 08/03. 13 acute ventilator associated pneumonia is strongly suspected, patient has Pseudomonas in his bronchial washing from the left lower lobe, hence I will initiate Zosyn Recommendation: Continue ventilatory support, continue to taper the FiO2 down, cut down PEEP to 5, awaken patient's today, possibly give the patient a trial of weaning today. Patient will be dialyzed today, and after dialysis we plan to give him a weaning trial, I cut down his FiO2 to 50% and his PEEP is down to 5 his assist control rate is down to 12 critical care time is 32 minutes. Time with Patient: Greater than 30
[2016-08-03 12:01] LABS: Glucose,Whole Blood 144 mg/dL (75-99)
[2016-08-03] MEDS: FOLIC ACID 1 MG TAB PO SCH (12:15)
[2016-08-03] MEDS: CLEVIDIPINE BUTYRATE 25 MG in EMPTY BAG 1 BAG IV SCH (13:02)
--- NOTE | 2016-08-03 13:52 | P.PN ---
Subjective Patient is still intubated Awaiting dialysis and ablating trial thereafter ABG reviewed ICD notes reviewe hemoglobin 7.1 Awaiting transfusion Discussed with CT surgery [employer] On examination he is afebrile 97.3F, pulse rate in the 60s, sinus rhythm, normal blood pressure 124/58 mmHg Impression Coronary artery disease status post coronary artery bypass grafting still on mechanical ventilation Advanced kidney disease stage V on dialysis Mild aortic stenosis Mild LV systolic dysfunction Chronic anemia Hypertension Right groin pseudoaneurysm Significant on of blood clots in the left mainstem bronchus causing lung collapse status post bronchoscopy and lavage 5 days back Pneumonitis Suggest Continue ICU management and respiratory care Continue cardiac medications and cardiac postop care Objective - Vital Signs Vital signs: Vital Signs Temp 97.4 F L 08/03/16 12:00 Pulse 56 L 08/03/16 13:00 Resp 14 08/03/16 13:00 BP 124/58 08/03/16 08:00 Pulse Ox 97 08/03/16 13:00 Intake & Output 08/02/16 08/03/16 08/03/16 18:59 06:59 18:59 Intake Total 735.586 771.765 672.016 Output Total 50 143 20 Balance 685.586 628.765 652.016 Weight 92 kg 94.3 kg Intake: IV 376.7 156 161 0.9 240 120 140 Dextrose 5% in Water 100 100.2 ml @ 618 mls/hr IV .Q10M ONE with Amiodarone 150 mg Rx#:[id number] Pressure Bag 36.5 36 21 Intake, IV Titration 288.886 185.765 181.016 Amount Amiodarone 450 mg In 102.985 Dextrose 5% in Water 250 ml @ 1 MG/MIN 34.53 mls/ hr IV .Q7H31M RINA Rx#: [id number] Piperacillin-Tazobactam 3 50.0 50.0 .375 gm In Dextrose/Water 1 50ml.bag @ 12.5 mls/hr IVPB Q12HR RINA Rx#: [id number] Propofol 500 mg In Empty 185.901 135.765 131.016 Bag 1 bag @ Titrate IV . Q0M RINA Rx#:[id number] Oral 0 Tube Feeding 70 340 270 Blood Product 0 Rc Pheresis 2 As3 Unit 0 [id number] Other 90 60 Output: Chest Tube Drainage 50 80 0 Chest Tube Lateral Chest 50 80 0 Urine 0 63 20 Other: Voiding Method Indwelling Catheter Indwelling Catheter Indwelling Catheter # Bowel Movements 1 1 ABP, PAP, CO, CI - Last Documented Arterial Blood Pressure 126/48 Pulmonary Artery Pressure 40/30 Cardiac Output 6.4 Cardiac Index 3.3 - Labs CBC & Chem 7: 08/03/16 05:00 08/03/16 05:00 Labs: Abnormal Lab Results - Last 24 Hours (Table) 08/02/16 08/02/16 08/02/16 Range/Units 18:39 20:27 23:47 RBC (4.30-5.90) m/uL Hgb (13.0-17.5) gm/dL Hct (39.0-53.0) % RDW (11.5-15.5) % Plt Count (150-450) k/uL Lymphocytes # (1.0-4.8) k/uL ABG pH (7.35-7.45) ABG pCO2 (35-45) mmHg ABG pO2 (83-108) mmHg ABG O2 Saturation (94-97) % Sodium (137-145) mmol/L BUN (9-20) mg/dL Creatinine (0.66-1.25) mg/dL Glucose (74-99) mg/dL POC Glucose (mg/dL) 150 H 138 H 133 H (75-99) mg/dL Calcium (8.4-10.2) mg/dL Ionized Calcium Lance (4.5-5.3) mg/dL Phosphorus (2.5-4.5) mg/dL Magnesium (1.6-2.3) mg/dL Alkaline Phosphatase (38-126) U/L Total Protein (6.3-8.2) g/dL Albumin (3.5-5.0) g/dL Crossmatch 08/03/16 08/03/16 08/03/16 Range/Units 03:46 05:00 05:00 RBC 2.27 L (4.30-5.90) m/uL Hgb 7.1 L (13.0-17.5) gm/dL Hct 21.6 L (39.0-53.0) % RDW 18.4 H (11.5-15.5) % Plt Count 127 L (150-450) k/uL Lymphocytes # 0.2 L (1.0-4.8) k/uL ABG pH (7.35-7.45) ABG pCO2 (35-45) mmHg ABG pO2 (83-108) mmHg ABG O2 Saturation (94-97) % Sodium 134 L (137-145) mmol/L BUN 47 H (9-20) mg/dL Creatinine 3.40 H (0.66-1.25) mg/dL Glucose 136 H (74-99) mg/dL POC Glucose (mg/dL) 149 H (75-99) mg/dL Calcium 8.0 L (8.4-10.2) mg/dL Ionized Calcium Lance 4.2 L (4.5-5.3) mg/dL Phosphorus 8.1 H* (2.5-4.5) mg/dL Magnesium 2.6 H (1.6-2.3) mg/dL Alkaline Phosphatase 171 H (38-126) U/L Total Protein 5.0 L (6.3-8.2) g/dL Albumin 2.6 L (3.5-5.0) g/dL Crossmatch 08/03/16 08/03/16 08/03/16 Range/Units 08:00 08:02 09:10 RBC (4.30-5.90) m/uL Hgb (13.0-17.5) gm/dL Hct (39.0-53.0) % RDW (11.5-15.5) % Plt Count (150-450) k/uL Lymphocytes # (1.0-4.8) k/uL ABG pH 7.50 H (7.35-7.45) ABG pCO2 29 L (35-45) mmHg ABG pO2 113 H (83-108) mmHg ABG O2 Saturation 99.0 H (94-97) % Sodium (137-145) mmol/L BUN (9-20) mg/dL Creatinine (0.66-1.25) mg/dL Glucose (74-99) mg/dL POC Glucose (mg/dL) 138 H (75-99) mg/dL Calcium (8.4-10.2) mg/dL Ionized Calcium Lance (4.5-5.3) mg/dL Phosphorus (2.5-4.5) mg/dL Magnesium (1.6-2.3) mg/dL Alkaline Phosphatase (38-126) U/L Total Protein (6.3-8.2) g/dL Albumin (3.5-5.0) g/dL Crossmatch See Detail 08/03/16 Range/Units 11:59 RBC (4.30-5.90) m/uL Hgb (13.0-17.5) gm/dL Hct (39.0-53.0) % RDW (11.5-15.5) % Plt Count (150-450) k/uL Lymphocytes # (1.0-4.8) k/uL ABG pH (7.35-7.45) ABG pCO2 (35-45) mmHg ABG pO2 (83-108) mmHg ABG O2 Saturation (94-97) % Sodium (137-145) mmol/L BUN (9-20) mg/dL Creatinine (0.66-1.25) mg/dL Glucose (74-99) mg/dL POC Glucose (mg/dL) 144 H (75-99) mg/dL Calcium (8.4-10.2) mg/dL Ionized Calcium Lance (4.5-5.3) mg/dL Phosphorus (2.5-4.5) mg/dL Magnesium (1.6-2.3) mg/dL Alkaline Phosphatase (38-126) U/L Total Protein (6.3-8.2) g/dL Albumin (3.5-5.0) g/dL Crossmatch Microbiology - Last 24 Hours (Table) 08/01/16 16:15 Gram Stain - Final Bronchial Washings - Left Bronchial Washings Culture - Final Pseudomonas aeruginosa 07/31/16 05:55 Blood Culture - Preliminary Blood No Growth after 72 hours 07/31/16 05:55 Blood Culture - Preliminary Blood No Growth after 72 hours 08/01/16 16:15 Acid Fast Bacilli Smear - Final Bronchial Washings - Left Acid Fast Bacilli Culture - Preliminary
[2016-08-03 16:17] LABS: Glucose,Whole Blood 152 mg/dL (75-99)
--- NOTE | 2016-08-03 17:21 | PN ---
Patient is a 80-year-old is in ICU post CABG, continues to be intubated and patient has end-stage renal disease undergoing hemodialysis today. Patient has minimal improvement in pulmonary edema and patient remains on mechanical ventilator and patient will undergo weaning trial today. ABGs look better and chest x-ray looks better today. Patient's phosphorus is very high. Patient will need phosphate binders, but that decision will be done by nephrology. REVIEW OF SYSTEMS: Unable to obtain due to his clinical condition. PHYSICAL EXAMINATION: Temperature 97.9, pulse of 60, respiratory rate 17, blood pressure is 150/51, saturating at 100% on mechanical ventilator. Please refer to pulmonology dictation for vent settings. Patient is intubated, sedated, calm at this point of time. HEENT: Pupils are round and equally reacting to light. EOMI. No scleral icterus. No conjunctival pallor. Normocephalic, atraumatic. No pharyngeal erythema. No thyromegaly. CARDIOVASCULAR: S1 and S2 present. No murmurs, rubs, or gallops. LUNG EXAMINATION: Mild bibasilar crackles were appreciated. Chest x-ray did show improvement. ABDOMEN: Soft, nontender, nondistended, normoactive bowel sounds. No palpable organomegaly. MUSCULOSKELETAL: No joint swelling or deformity. EXTREMITIES: No cyanosis, clubbing, or pedal edema. NEUROLOGICAL: Intubated, sedated, on propofol drip. SKIN: No rashes. LABORATORY DATA: Patient is mildly alkalotic secondary to respiratory alkalosis because of the ventilator. Creatinine of 3.4. Sodium 134, which is expected to be corrected with the dialysis. Patient's ionized calcium is minimally low at 4.2. Phosphorus is 8.1. Magnesium is 2.6. I will leave the decision of correction of these things to Nephrology. Patient is presently on darbepoetin tamy, subcutaneous heparin, IV insulin drip, Lopressor, Protonix; piperacillin tazobactam, although I did not see any signs or symptoms of infection at this point of time, propofol. ASSESSMENT AND PLAN: 1. Acute hypoxic respiratory failure post coronary artery bypass graft and secondary to pulmonary edema. 2. Pulmonary edema and patient is hemodialysis end stage renal disease. 3. Mild left ventricular dysfunction with systolic dysfunction with acute exacerbation. 4. Mild aortic stenosis. 5. Hypertension. 6. Hyperlipidemia. 7. Coronary artery disease, status post coronary artery bypass graft. 8. Rheumatoid arthritis. 9. Metabolic bone disease. 10. Hyperphosphatemia secondary to end-stage renal disease. 11. Anemia of chronic kidney disease. 12. Hyponatremia, hypovolemic hyponatremia suspected to improve after dialysis. PLAN: Continue with ventilator support, wean off as tolerated. Patient will need phosphate binders, but that decision will be left to nephrology.
--- NOTE | 2016-08-03 17:47 | PN ---
Patient is seen for followup for end-stage renal disease. He was seen this morning. He is on the vent, remains sedated. Hemoglobin was noted to be 7.1 g/dL. Blood pressure has been slightly on the lower side occasionally. On examination, current blood pressure was 145/68. Patient is afebrile. Heart rate about 56 per minute. HEART: S1 and S2. LUNGS: Bilateral breath sounds are heard. ABDOMEN: Soft, nontender. Lower extremities show the drain from the right lower extremity has been removed. Edema 1+ is noted. Labs show sodium 134, potassium 4.0. Phosphorus 8.1. Hemoglobin of 7.1 g/dL. ASSESSMENT: 1. End-stage renal disease on hemodialysis on a Friday, , Friday schedule. 2. Anemia with evidence of pulmonary hemorrhage. No active bleeding noted through the endotracheal tube at this time. Hemoglobin at 7.1 g/dL, having transfused 1 unit packed red blood cells with hemodialysis today. 3. Hyperphosphatemia associated with end-stage renal disease. Will start patient on phosphate binders and switch feeding to Nepro. 4. Status post coronary artery bypass surgery. 5. Ventilator-dependent respiratory failure. 6. Pulmonary hemorrhage in the left lung. PLAN: Hemodialysis today and transfuse 1 unit packed RBCs. Change tube feedings to Nepro and add phosphate binder.
[2016-08-03 18:02] LABS: Glucose,Whole Blood 169 mg/dL (75-99)
[2016-08-03 20:09] LABS: Glucose,Whole Blood 139 mg/dL (75-99)
[2016-08-03] MEDS: SODIUM CHLORIDE 0.9% 1,000 ML IV SCH (20:09)
[2016-08-03] MEDS: SENNOSIDES-DOCUSATE SODIUM 1 EACH TAB PO SCH (20:10)
[2016-08-04] MEDS: INSULIN LISPRO (humaLOG) 300 UNIT/3 ML VIAL SQ SCH ×7 (00:15→23:45)
[2016-08-04] MEDS: DEXAMETHASONE SOD PHOSPHATE 4 MG/ML 1 ML VIAL IV SCH ×3 (00:15→20:34)
[2016-08-04] MEDS: HEPARIN SODIUM,PORCINE 5,000 UNIT/ML 1 ML VIAL SQ SCH ×4 (00:15→23:45)
[2016-08-04 00:16] LABS: Glucose,Whole Blood 141 mg/dL (75-99)
[2016-08-04] MEDS: HYDROcodone/APAP 5-325MG 1 EACH TAB PO PRN (00:49)
[2016-08-04] MEDS: IPRATROPIUM-ALBUTEROL 3 ML NEB INHALATION SCH ×5 (03:09→20:16)
[2016-08-04] MEDS: hydrALAZINE HCL 20 MG/ML 1 ML VIAL IVP PRN (04:13)
[2016-08-04 04:14] LABS: Glucose,Whole Blood 139 mg/dL (75-99)
[2016-08-04] MEDS: MORPHINE SULFATE 2 MG/ML SYRINGE IVP PRN (05:43)
[2016-08-04] MEDS: PROPOFOL 500 MG in EMPTY BAG 1 BAG IV SCH ×2 (05:49→07:39)
[2016-08-04 05:58] LABS: Anisocytosis Slight; Basophils % (A) 0 %; CH 30.3; CHCM 33.1; Eosinophils % (A) 0 %; HCT 26.7 % (39.0-53.0); HDW 3.84; Hypochromasia Slight; Luc # (Auto) 0.17; Luc % (Auto) 1; Lymphocytes # (A) 0.2 k/uL (1.0-4.8); Lymphocytes % (A) 2 %; MCH 31.1 pg (25.0-35.0); MCHC 33.5 g/dL (31.0-37.0); MCV 92.8 fL (80.0-100.0); Macrocytosis Slight; Mean Platelet Volume 8.5; Monocytes # (A) 0.7 k/uL (0-1.0); Monocytes % (A) 4 %; Neutrophils # (A) 14.9 k/uL (1.3-7.7); Neutrophils % (A) 93 %; Poikilocytosis Slight; RBC 2.88 m/uL (4.30-5.90); RDW 18.8 % (11.5-15.5); WBC 16.1 k/uL (3.8-10.6); WBC (Perox) 16.96
[2016-08-04 06:09] LABS: Ionized Calcium 4.2 mg/dL (4.5-5.3)
[2016-08-04 06:24] LABS: Magnesium 2.4 mg/dL (1.6-2.3); Phosphorous 5.5 mg/dL (2.5-4.5); Potassium 3.7 mmol/L (3.5-5.1); Total Bilirubin 1.6 mg/dL (0.2-1.3); Total Protein 5.7 g/dL (6.3-8.2)
[2016-08-04 06:29] LABS: Manual Review Performed
[2016-08-04] MEDS ORDERED: POTASSIUM CHLORIDE ORAL LIQUID 40 MEQ/30 ML CUP PO ONE (07:40)
[2016-08-04 08:05] LABS: Glucose,Whole Blood 135 mg/dL (75-99)
[2016-08-04] MEDS: CALCIUM ACETATE 667 MG CAP PO SCH ×3 (08:16→16:31)
[2016-08-04] MEDS: AMIODARONE 200 MG TAB PO SCH ×3 (08:17→20:45)
[2016-08-04] MEDS: CHLORHEXIDINE GLUCONATE 15 ML CUP MUCOUS MEM SCH ×2 (08:17→20:38)
[2016-08-04] MEDS: ATORVASTATIN 40 MG TAB PO SCH (08:17)
[2016-08-04] MEDS: PANTOPRAZOLE 40 MG/10 ML VIAL IVP SCH (08:17)
[2016-08-04] MEDS: ASPIRIN 81 MG CHEW PO SCH (08:17)
[2016-08-04] MEDS: METOPROLOL TARTRATE 12.5 MG TAB PO SCH ×2 (08:17→20:34)
[2016-08-04] MEDS: PIPERACILLIN-TAZOBACTAM 3.375 GM in DEXTROSE/WATER 1 50ML.BAG IVPB SCH ×2 (08:43→20:36)
[2016-08-04 09:14] LABS: ABG Base Excess -0.5 mmol/L; ABG HCO3 23 mmol/L (21-25); ABG PCO2 34 mmHg (35-45); ABG PH 7.44 (7.35-7.45); ABG PO2 123 mmHg (83-108); ABG TCO2 24 mmol/L (19-24)
--- NOTE | 2016-08-04 09:16 | XR ---
EXAMINATION TYPE: XR chest 1V portable DATE OF EXAM: 08/04/2016 6:11 AM COMPARISON: Prior chest x-ray 03 August 2016 HISTORY: Intubated, postop TECHNIQUE: Single frontal view of the chest is obtained. FINDINGS: Endotracheal tube, NG tube are stable overlying appropriate positions, right-sided PICC li ne is unchanged, there are overlying cardiac leads. Lung volumes are somewhat lower, patient is post median sternotomy and the heart remains enlarged. IMPRESSION: Expiratory exam, pleural parenchymal changes show a similar appearance. Correlate for co ngestive heart failure, pneumonia, follow-up recommended
[2016-08-04] MEDS ORDERED: LISINOPRIL 10 MG TAB PO STA (10:33)
--- NOTE | 2016-08-04 10:39 | PN ---
Patient is seen for follow-up for end-stage renal disease. His blood pressure this morning has been running on the high side with systolic 160s to 180s. Patient's x-ray also appeared to be consistent with some pulmonary vascular congestion and therefore he will be dialyzed today. There are plans for possible weaning and extubation later on today. On examination, blood pressure is 166/52, heart rate 72 per minute. The patient is afebrile. Examination of the heart S1 and S2. Examination of the lungs: Bilateral breath sounds are heard. Abdomen is soft, nontender. Examination of the lower extremities shows trace edema. The drain in the right lower extremity has been removed. Labs show sodium of 136, potassium 3.7, BUN 46, serum creatinine 2.78, hemoglobin 9.0 g/dL. ASSESSMENT: 1. End-stage renal disease on hemodialysis normally on a Friday, , Friday schedule. 2. Volume overload. Will arrange for hemodialysis today with plans for possible weaning and extubation later on today. 3. Pulmonary hemorrhage seems to have resolved now. 4. Ventilator-dependent respiratory failure. 5. Status post coronary artery bypass surgery. PLAN: Hemodialysis today with goal UF of about 2 to 2.5 liters as tolerated and then possible weaning and extubation today.
--- NOTE | 2016-08-04 11:28 | P.PN ---
Subjective Principal diagnosis: Non-ST elevation myocardial infarction. POD #6 non-aortic clamp off pump double coronary artery bypass grafting using the left internal mammary artery to the left anterior descending artery and reverse saphenous vein graft from the aorta to the posterior descending artery. Endoscopic harvesting of the right greater saphenous vein. Intraoperative transesophageal echocardiogram and epi-aortic scanning. Intraoperative graft flow measurements using the [employer] machine. Currently sedated on the ventilator. Patient had hypertension last night and was given hydralazine IV push.. Objective - Vital Signs Vital signs: Vital Signs Temp 97.5 F L 08/04/16 08:00 Pulse 68 08/04/16 10:00 Resp 13 08/04/16 10:00 BP 180/67 08/04/16 10:00 Pulse Ox 100 08/04/16 10:00 Intake & Output 08/03/16 08/04/16 08/04/16 18:59 06:59 18:59 Intake Total 1261.469 664.667 141.049 Output Total 1775 108 42 Balance -513.531 556.667 99.049 Weight 94.3 kg 94.7 kg Intake: IV 276 276 92 0.9 240 240 80 Pressure Bag 36 36 12 Intake, IV Titration 255.469 68.667 9.049 Amount Piperacillin-Tazobactam 3 50.0 50.0 .375 gm In Dextrose/Water 1 50ml.bag @ 12.5 mls/hr IVPB Q12HR [facility] Rx#: [id number] Propofol 500 mg In Empty 205.469 Bag 1 bag @ Titrate IV . Q0M [facility] Rx#:[id number] Propofol 500 mg In Empty 18.667 9.049 Bag 1 bag @ Titrate IV . Q0M RINA Rx#:[id number] Tube Feeding 330 230 40 Blood Product 310 Rc Pheresis 2 As3 Unit 310 [id number] Other 90 90 Output: Chest Tube Drainage 40 70 20 Chest Tube Lateral Chest 40 70 20 Urine 35 38 22 Other 1700 Other: Voiding Method Indwelling Catheter Indwelling Catheter # Bowel Movements 1 1 ABP, PAP, CO, CI - Last Documented Arterial Blood Pressure 165/51 Pulmonary Artery Pressure 40/30 Cardiac Output 6.4 Cardiac Index 3.3 - Constitutional General appearance: Present: no acute distress - Respiratory Details: Lungs sounds diminished bilaterally with faint crackles bilateral bases. Respirations even, nonlabored on mechanical ventilation. Current settings tidal volume 550, FiO2 50%, respiratory rate 12, PEEP 5. Left pleural chest tube draining to 30 mL serous fluid overnight, 150 mL last 24 hours. - Cardiovascular Details: S1, S2 present. Regular rate and rhythm, normal sinus rhythm on telemetry. Sternum stable. Teds, SCDs present. - Gastrointestinal Gastrointestinal Comment(s): Abdomen soft, nontender, nondistended. Hypoactive bowel sounds 4 quadrants. Nepro tube feeding increased to 30 mL per hour. - Genitourinary Genitourinary Comment(s): Sparks present draining minimal urine. - Integumentary Integumentary Comment(s): Anterior chest incision covered with dry intact silver dressing. Right lower extremity EVH site well proximal to. - Neurologic Neurologic Comment(s): Patient wakes up with sedation lessened, follows commands. - Musculoskeletal Musculoskeletal: Present: generalized weakness - Labs CBC & Chem 7: 08/04/16 05:45 08/04/16 05:45 Labs: Abnormal Lab Results - Last 24 Hours (Table) 08/03/16 08/03/16 08/03/16 Range/Units 08:00 11:59 16:16 WBC (3.8-10.6) k/uL RBC (4.30-5.90) m/uL Hgb (13.0-17.5) gm/dL Hct (39.0-53.0) % RDW (11.5-15.5) % Plt Count (150-450) k/uL Neutrophils # (1.3-7.7) k/uL Lymphocytes # (1.0-4.8) k/uL ABG pCO2 (35-45) mmHg ABG pO2 (83-108) mmHg ABG O2 Saturation (94-97) % Sodium (137-145) mmol/L BUN (9-20) mg/dL Creatinine (0.66-1.25) mg/dL Glucose (74-99) mg/dL POC Glucose (mg/dL) 144 H 152 H (75-99) mg/dL Calcium (8.4-10.2) mg/dL Ionized Calcium Lance (4.5-5.3) mg/dL Phosphorus (2.5-4.5) mg/dL Magnesium (1.6-2.3) mg/dL Total Bilirubin (0.2-1.3) mg/dL Alkaline Phosphatase (38-126) U/L Total Protein (6.3-8.2) g/dL Albumin (3.5-5.0) g/dL Crossmatch See Detail 08/03/16 08/03/16 08/04/16 Range/Units 18:01 20:07 00:14 WBC (3.8-10.6) k/uL RBC (4.30-5.90) m/uL Hgb (13.0-17.5) gm/dL Hct (39.0-53.0) % RDW (11.5-15.5) % Plt Count (150-450) k/uL Neutrophils # (1.3-7.7) k/uL Lymphocytes # (1.0-4.8) k/uL ABG pCO2 (35-45) mmHg ABG pO2 (83-108) mmHg ABG O2 Saturation (94-97) % Sodium (137-145) mmol/L BUN (9-20) mg/dL Creatinine (0.66-1.25) mg/dL Glucose (74-99) mg/dL POC Glucose (mg/dL) 169 H 139 H 141 H (75-99) mg/dL Calcium (8.4-10.2) mg/dL Ionized Calcium Lance (4.5-5.3) mg/dL Phosphorus (2.5-4.5) mg/dL Magnesium (1.6-2.3) mg/dL Total Bilirubin (0.2-1.3) mg/dL Alkaline Phosphatase (38-126) U/L Total Protein (6.3-8.2) g/dL Albumin (3.5-5.0) g/dL Crossmatch 08/04/16 08/04/16 08/04/16 Range/Units 04:08 05:45 05:45 WBC 16.1 H (3.8-10.6) k/uL RBC 2.88 L (4.30-5.90) m/uL Hgb 9.0 L D (13.0-17.5) gm/dL Hct 26.7 L (39.0-53.0) % RDW 18.8 H (11.5-15.5) % Plt Count 139 L (150-450) k/uL Neutrophils # 14.9 H (1.3-7.7) k/uL Lymphocytes # 0.2 L (1.0-4.8) k/uL ABG pCO2 (35-45) mmHg ABG pO2 (83-108) mmHg ABG O2 Saturation (94-97) % Sodium 136 L (137-145) mmol/L BUN 46 H (9-20) mg/dL Creatinine 2.78 H (0.66-1.25) mg/dL Glucose 127 H (74-99) mg/dL POC Glucose (mg/dL) 139 H (75-99) mg/dL Calcium 8.0 L (8.4-10.2) mg/dL Ionized Calcium Lance 4.2 L (4.5-5.3) mg/dL Phosphorus 5.5 H (2.5-4.5) mg/dL Magnesium 2.4 H (1.6-2.3) mg/dL Total Bilirubin 1.6 H (0.2-1.3) mg/dL Alkaline Phosphatase 204 H (38-126) U/L Total Protein 5.7 L (6.3-8.2) g/dL Albumin 2.9 L (3.5-5.0) g/dL Crossmatch 08/04/16 08/04/16 Range/Units 08:03 09:11 WBC (3.8-10.6) k/uL RBC (4.30-5.90) m/uL Hgb (13.0-17.5) gm/dL Hct (39.0-53.0) % RDW (11.5-15.5) % Plt Count (150-450) k/uL Neutrophils # (1.3-7.7) k/uL Lymphocytes # (1.0-4.8) k/uL ABG pCO2 34 L (35-45) mmHg ABG pO2 123 H (83-108) mmHg ABG O2 Saturation 99.0 H (94-97) % Sodium (137-145) mmol/L BUN (9-20) mg/dL Creatinine (0.66-1.25) mg/dL Glucose (74-99) mg/dL POC Glucose (mg/dL) 135 H (75-99) mg/dL Calcium (8.4-10.2) mg/dL Ionized Calcium Lance (4.5-5.3) mg/dL Phosphorus (2.5-4.5) mg/dL Magnesium (1.6-2.3) mg/dL Total Bilirubin (0.2-1.3) mg/dL Alkaline Phosphatase (38-126) U/L Total Protein (6.3-8.2) g/dL Albumin (3.5-5.0) g/dL Crossmatch Microbiology - Last 24 Hours (Table) 07/31/16 05:55 Blood Culture - Preliminary Blood No Growth after 96 hours 07/31/16 05:55 Blood Culture - Preliminary Blood No Growth after 96 hours 08/01/16 16:15 Gram Stain - Final Bronchial Washings - Left Bronchial Washings Culture - Final Pseudomonas aeruginosa - Imaging and Cardiology Chest x-ray: report reviewed, image reviewed Assessment and Plan (1) Non-STEMI (non-ST elevated myocardial infarction) Status: Acute (2) Hypertension Status: Acute (3) Hyperlipidemia Status: Acute (4) End-stage renal disease on hemodialysis Status: Acute Plan: 1. Continue aspirin, Lipitor, heparin SQ, lopressor. Add lisinopril 10 mg daily. 2. Continue amiodarone for Afib prophylaxis. 3. Vent management per pulmonology. Wean O2 as tolerated. Decrease Decadron to 4 mg every 12 hours 4. Dialysis again today. Will likely DC pleural chest tube tomorrow. 5. Continue Zosyn for Pseudomonas positive bronchial wash. 6. Tube feedings to continue until extubated. 7. Will add vitamin A today. 8. Will continue to monitor labs, chest x-rays. 9. Insulin drip, diabetic management per primary service. 10. GI/DVT prophylaxis. 11. Will reapply hard boot to left lower extremity when patient extubated and ambulatory 12. More recommendations as patient progresses. Time with Patient: Greater than 30
[2016-08-04 12:10] LABS: Glucose,Whole Blood 139 mg/dL (75-99)
--- NOTE | 2016-08-04 12:27 | P.PN ---
Subjective Principal diagnosis: Status post CABG postoperative day # 6 This is a 80-year-old white male with history of multiple medical problems including hypertension, previous ischemic heart disease and mild aortic stenosis. End-stage renal disease on hemodialysis. History of rheumatoid arthritis, patient was admitted recently with chest pain, cardiac enzymes were suggestive of non-ST elevation myocardial infarction, cardiac cath showed significant coronary artery disease with critical lesion in the proximal LAD also the proximal RCA. Today, the patient underwent myocardial revascularization by Dr. Alcaraz, and he was placed on mechanical ventilation postoperatively, seen in the ICU for consultation and postoperative ventilator management. Presently, the patient is on 100% FiO2, assist control rate of 12, PEEP of 5, and tidal volume of 500. Initial ABG showed a pO2 of 364, pCO2 of 42 pH of 7.32. However shortly after patient was placed on a 50% FiO2, and he was noted to have significant drop in his saturation based on pulse oximetry. Repeat ABG showed worsening oxygenation with a pO2 of 46 pCO2 of 50 and pH of 7.28. Hence placed back on 100%, increased his rate up to 16, and increased the PEEP to 10. Follow-up chest x-ray showed worsening pulmonary edema, remind you patient is a hemodialysis patient. Follow-up ABG is pending. Patient is presently fully sedated, and in no distress. Reevaluated today on 07/30/2016, patient is status post off pump double coronary artery bypass grafting using L REJI to LAD, and reverse saphenous vein graft from the aorta to the posterior descending artery.patient remains on mechanical ventilation, chest x-ray is showing worsening picture of pulmonary edema, however the possibility of bleeding into the left midlung area and left lower lobe is not entirely ruled out there seems to be a worsening consolidation in the area of the left midlung and left lower lobe, hence may consider bronchoscopy on this patient. In the meantime, patient is being ultrafiltrate it today, and hopefully that will make a significant improvement on the chest x- ray appearance, and may help oxygenation.labs were reviewed, WBC count is 9.8 hemoglobin is 7.6 it was 6.5 earlier today,patient received a total of 5 units of packed RBCs since admission, 2 units of fresh frozen plasma, and 3 units of platelets. Reevaluated today on 07/31/2016, patient underwent another bronchoscopy today although his chest x-ray was showing some improvement compared to the chest x- ray yesterday after bronchoscopy. There was evidence of more aeration of the left upper lobe and lingula on the chest x-ray today. Today I was able to clear plugs from the left lower lobe bronchus, and from the lingular bronchus. Throughout the procedure there was some oozing of blood, and the mucosa of the bronchial tube was noted to be very fragile and bled easily. No biopsies were done. But suctioning and lavages of the left lower lobe and lingula was performed. In the meantime the patient remains on mechanical ventilations, today I increased his tidal volume up to 550 kept him on assist control rate of 16 I increased the flow rates up to 70, and FiO2 will be titrated down from 100 % during the bronchoscopy to as low as 50% as tolerated, and PEEP remains at 10 for the time being. Labs were reviewed, hemoglobin is 7.9 platelets are 114. Electrolytes were reviewed BUN is 31 creatinine is 4.29. On 08/01/2016, patient remains on mechanical ventilation, we were able earlier today to cut down the FiO2 to 50%, and PEEP was down to as low as 5%. However as the hemodialysis was started, patient began to desaturate, hence went back to a PEEP of 8. And increase his FiO2 to 55%. Patient is now undergoing hemodialysis, his chest x-ray is showing definite improvement, hence no need for bronchoscopy and evaluation of the left lung today. Still suctioning some bloody secretions from the endotracheal tube by respiratory. Labs were reviewed , hemoglobin is 7.3 today. Platelets are 101, INR is 1.1 electrolytes and renal profile were reviewed BUN is 24 creatinine is 3.24. Elevation of the left lung is definitely improved, small bilateral pleural effusions were noted On 08/02/2016, patient was reevaluated. I had to bronchoscope the patient late in the afternoon yesterday because of worsening chest x-ray and the patient continued to desaturate intermittently requiring increasing the FiO2 to 100%. Lavage was done of the left lower lobe lingula and left upper lobe, patient was placed on Decadron, cultures from the previous bronchoscopy came back positive for Pseudomonas, hence I started the patient today on Zosyn, and the patient is being followed by infectious disease on consultation. Patient remains on mechanical ventilation today, he is on a 50% and PEEP of 8 ABG showed a pO2 of 85 pCO2 of 33 pH of 7.48. Chest x-ray is showing better aeration of the left upper lobe lingula and left lower lobe, continues to have some atelectasis in the left lower lobe itself. It is not going to be dialyzed today, but will be dialyzed in a.m. BUN is 23 creatinine is 2.80 patient remains sedated on mechanical ventilation, however we plan to discontinue propofol briefly, assess his mental status today, and again he is not quite ready for extubation and weaning at this point. But this will definitely be addressed again tomorrow assuming his chest x-ray continues to show improvement. Reevaluated today on 08/03/2016, remains on mechanical ventilation, chest x-ray is showing definite improvement in the aeration of the left lung, patient will not eat to be bronchoscope today. However I do plan to consider a weaning trial on this patient today after hemodialysis. If tolerated may even proceeded to extubating the patient. ABG this morning showed a pO2 of 113 pCO2 of 29 pH of 7.50 hence I cut down the rate to 12, I also cut down the PEEP from 10-5. CBC showed hemoglobin of 7.1, I will leave it up to the surgeons to decide whether the patient needs to be transfused at this point. This may be done at the time of his dialysis. Electrolytes were reviewed BUN is 47 creatinine is 3.40. Chest x-ray as noted above. Reevaluated on 08/04/2016, remains on mechanical ventilation, chest x-ray today is showing slight worsening, I suspect there is some interstitial edema, and possibly minimal left lower lobe atelectasis or pneumonia involving the left lower lobe. ABG showed a pO2 of 123 pCO2 of 34 pH of 7.44 patient is presently on a PEEP of 5 and FiO2 of 50%. He has been off propofol for quite some time overnight, and I was hoping to assess his mental status today and likely extubated. However the patient remains lethargic off propofol, and considering the worsening of the chest x-ray, will likely have the patient dialyzed today, and address weaning again either later today or in a.m. We'll cut down the dose of Decadron, WBC count is down to 16.1 hemoglobin is 9.0 today Objective - Vital Signs Vital signs: Vital Signs Temp 973 F H 08/04/16 11:00 Pulse 76 08/04/16 12:00 Resp 20 08/04/16 12:00 BP 180/67 08/04/16 10:00 Pulse Ox 95 08/04/16 12:00 Intake & Output 08/03/16 08/04/16 08/04/16 18:59 06:59 18:59 Intake Total 1261.469 664.667 217.049 Output Total 1775 108 42 Balance -513.531 556.667 175.049 Weight 94.3 kg 94.7 kg Intake: IV 276 276 138 0.9 240 240 120 Pressure Bag 36 36 18 Intake, IV Titration 255.469 68.667 9.049 Amount Piperacillin-Tazobactam 3 50.0 50.0 .375 gm In Dextrose/Water 1 50ml.bag @ 12.5 mls/hr IVPB Q12HR [facility] Rx#: [id number] Propofol 500 mg In Empty 205.469 Bag 1 bag @ Titrate IV . Q0M [facility] Rx#:[id number] Propofol 500 mg In Empty 18.667 9.049 Bag 1 bag @ Titrate IV . Q0M [facility] Rx#:[id number] Tube Feeding 330 230 70 Blood Product 310 Rc Pheresis 2 As3 Unit 310 [id number] Other 90 90 Output: Chest Tube Drainage 40 70 20 Chest Tube Lateral Chest 40 70 20 Urine 35 38 22 Other 1700 Other: Voiding Method Indwelling Catheter Indwelling Catheter # Bowel Movements 1 1 ABP, PAP, CO, CI - Last Documented Arterial Blood Pressure 145/45 Pulmonary Artery Pressure 40/30 Cardiac Output 6.4 Cardiac Index 3.3 - Exam Gen: This is a 80-year-old male. intubated sedated and mechanically ventilated HEENT: Head is atraumatic, normocephalic. Pupils equal, round. Sclerae is anicteric. Conjunctiva pink. Mucous members of the mouth are moist. No thrush noted. And the tracheal tube is intact. NECK: Supple. No JVD. No lymphadenopathy. No thyromegaly. LUNGS: Coarse crackles mostly at the left base HEART: Normal S1 and S2, no gallops ABDOMEN: Soft. Bowel sounds are present. No masses. No tenderness. EXTREMITIES: No pedal edema. No calf tenderness. Total contact cast was removed. The ulceration to the left heel is clean without significant purulence noted drainage. Silver dressing is in place.fistula left arm intact Dialysis graft of the left arm is intact. NEUROLOGICAL: Lethargic, opens eyes, on propofol drip, generally weak. - Labs CBC & Chem 7: 08/04/16 05:45 08/04/16 05:45 Labs: Abnormal Lab Results - Last 24 Hours (Table) 08/03/16 08/03/16 08/03/16 Range/Units 08:00 16:16 18:01 WBC (3.8-10.6) k/uL RBC (4.30-5.90) m/uL Hgb (13.0-17.5) gm/dL Hct (39.0-53.0) % RDW (11.5-15.5) % Plt Count (150-450) k/uL Neutrophils # (1.3-7.7) k/uL Lymphocytes # (1.0-4.8) k/uL ABG pCO2 (35-45) mmHg ABG pO2 (83-108) mmHg ABG O2 Saturation (94-97) % Sodium (137-145) mmol/L BUN (9-20) mg/dL Creatinine (0.66-1.25) mg/dL Glucose (74-99) mg/dL POC Glucose (mg/dL) 152 H 169 H (75-99) mg/dL Calcium (8.4-10.2) mg/dL Ionized Calcium Lance (4.5-5.3) mg/dL Phosphorus (2.5-4.5) mg/dL Magnesium (1.6-2.3) mg/dL Total Bilirubin (0.2-1.3) mg/dL Alkaline Phosphatase (38-126) U/L Total Protein (6.3-8.2) g/dL Albumin (3.5-5.0) g/dL Crossmatch See Detail 08/03/16 08/04/16 08/04/16 Range/Units 20:07 00:14 04:08 WBC (3.8-10.6) k/uL RBC (4.30-5.90) m/uL Hgb (13.0-17.5) gm/dL Hct (39.0-53.0) % RDW (11.5-15.5) % Plt Count (150-450) k/uL Neutrophils # (1.3-7.7) k/uL Lymphocytes # (1.0-4.8) k/uL ABG pCO2 (35-45) mmHg ABG pO2 (83-108) mmHg ABG O2 Saturation (94-97) % Sodium (137-145) mmol/L BUN (9-20) mg/dL Creatinine (0.66-1.25) mg/dL Glucose (74-99) mg/dL POC Glucose (mg/dL) 139 H 141 H 139 H (75-99) mg/dL Calcium (8.4-10.2) mg/dL Ionized Calcium Lance (4.5-5.3) mg/dL Phosphorus (2.5-4.5) mg/dL Magnesium (1.6-2.3) mg/dL Total Bilirubin (0.2-1.3) mg/dL Alkaline Phosphatase (38-126) U/L Total Protein (6.3-8.2) g/dL Albumin (3.5-5.0) g/dL Crossmatch 08/04/16 08/04/16 08/04/16 Range/Units 05:45 05:45 08:03 WBC 16.1 H (3.8-10.6) k/uL RBC 2.88 L (4.30-5.90) m/uL Hgb 9.0 L D (13.0-17.5) gm/dL Hct 26.7 L (39.0-53.0) % RDW 18.8 H (11.5-15.5) % Plt Count 139 L (150-450) k/uL Neutrophils # 14.9 H (1.3-7.7) k/uL Lymphocytes # 0.2 L (1.0-4.8) k/uL ABG pCO2 (35-45) mmHg ABG pO2 (83-108) mmHg ABG O2 Saturation (94-97) % Sodium 136 L (137-145) mmol/L BUN 46 H (9-20) mg/dL Creatinine 2.78 H (0.66-1.25) mg/dL Glucose 127 H (74-99) mg/dL POC Glucose (mg/dL) 135 H (75-99) mg/dL Calcium 8.0 L (8.4-10.2) mg/dL Ionized Calcium Lance 4.2 L (4.5-5.3) mg/dL Phosphorus 5.5 H (2.5-4.5) mg/dL Magnesium 2.4 H (1.6-2.3) mg/dL Total Bilirubin 1.6 H (0.2-1.3) mg/dL Alkaline Phosphatase 204 H (38-126) U/L Total Protein 5.7 L (6.3-8.2) g/dL Albumin 2.9 L (3.5-5.0) g/dL Crossmatch 08/04/16 08/04/16 Range/Units 09:11 12:08 WBC (3.8-10.6) k/uL RBC (4.30-5.90) m/uL Hgb (13.0-17.5) gm/dL Hct (39.0-53.0) % RDW (11.5-15.5) % Plt Count (150-450) k/uL Neutrophils # (1.3-7.7) k/uL Lymphocytes # (1.0-4.8) k/uL ABG pCO2 34 L (35-45) mmHg ABG pO2 123 H (83-108) mmHg ABG O2 Saturation 99.0 H (94-97) % Sodium (137-145) mmol/L BUN (9-20) mg/dL Creatinine (0.66-1.25) mg/dL Glucose (74-99) mg/dL POC Glucose (mg/dL) 139 H (75-99) mg/dL Calcium (8.4-10.2) mg/dL Ionized Calcium Lance (4.5-5.3) mg/dL Phosphorus (2.5-4.5) mg/dL Magnesium (1.6-2.3) mg/dL Total Bilirubin (0.2-1.3) mg/dL Alkaline Phosphatase (38-126) U/L Total Protein (6.3-8.2) g/dL Albumin (3.5-5.0) g/dL Crossmatch Microbiology - Last 24 Hours (Table) 07/31/16 05:55 Blood Culture - Preliminary Blood No Growth after 96 hours 07/31/16 05:55 Blood Culture - Preliminary Blood No Growth after 96 hours 08/01/16 16:15 Gram Stain - Final Bronchial Washings - Left Bronchial Washings Culture - Final Pseudomonas aeruginosa Assessment and Plan Plan: Impression: 1 status post CABG, on mechanical ventilation, postoperative day #6 2 acute pulmonary edema as noted on the chest x-ray, patient is a hemodialysis patient and his history of chronic renal disease. 3 history of mild aortic stenosis 4 history of mild LV dysfunction 5 history of chronic anemia 6 history of chronic renal failure on hemodialysis 7 history of hypertension 8 history of hyperlipidemia 9 history of right groin pseudoaneurysm following cardiac catheterization. 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 However the patient will not need to be bronchoscoped on 08/02. And on 08/03. And on 08/04 13 acute ventilator associated pneumonia is strongly suspected, patient has Pseudomonas in his bronchial washing from the left lower lobe, hence will continue Zosyn Recommendation: Continue ventilatory support, continue to taper the FiO2 down, cut down PEEP to 5, awaken patient's today, possibly give the patient a trial of weaning today. Patient will be dialyzed today, and after dialysis we plan to give him a weaning trial, I cut down his FiO2 to 50% and his PEEP is down to 5 his assist control rate is down to 12 critical care time is 34 minutes. Time with Patient: Greater than 30
[2016-08-04] MEDS: VITAMIN A 10,000 UNIT CAPSULE PO SCH (13:21)
[2016-08-04] MEDS: FOLIC ACID 1 MG TAB PO SCH (13:22)
[2016-08-04] MEDS: CLEVIDIPINE BUTYRATE 25 MG in EMPTY BAG 1 BAG IV SCH (15:55)
[2016-08-04 16:04] LABS: Glucose,Whole Blood 151 mg/dL (75-99)
[2016-08-04] MEDS: SODIUM CHLORIDE 0.9% 1,000 ML IV SCH (20:32)
[2016-08-04 20:34] LABS: Glucose,Whole Blood 105 mg/dL (75-99)
[2016-08-04] MEDS: SENNOSIDES-DOCUSATE SODIUM 1 EACH TAB PO SCH (20:38)
[2016-08-04] MEDS ORDERED: METOPROLOL TARTRATE 25 MG TAB PO SCH (21:00)
[2016-08-04 23:46] LABS: Glucose,Whole Blood 121 mg/dL (75-99)
[2016-08-05 05:22] LABS: Anisocytosis Slight; Basophils # (A) 0.1 k/uL (0-0.2); Basophils % (A) 0 %; CH 29.9; CHCM 31.9; Eosinophils % (A) 0 %; HCT 28.3 % (39.0-53.0); HDW 3.59; HGB 8.8 gm/dL (13.0-17.5); Hypochromasia Slight; Luc # (Auto) 0.16; Luc % (Auto) 1; Lymphocytes # (A) 0.3 k/uL (1.0-4.8); Lymphocytes % (A) 2 %; MCH 29.6 pg (25.0-35.0); MCHC 31.2 g/dL (31.0-37.0); MCV 94.7 fL (80.0-100.0); Macrocytosis Slight; Mean Platelet Volume 8.3; Monocytes # (A) 0.7 k/uL (0-1.0); Monocytes % (A) 4 %; Neutrophils # (A) 13.8 k/uL (1.3-7.7); Neutrophils % (A) 92 %; Poikilocytosis Slight; RBC 2.98 m/uL (4.30-5.90); RDW 18.7 % (11.5-15.5); WBC (Perox) 15.19
[2016-08-05 05:35] LABS: Ionized Calcium 4.5 mg/dL (4.5-5.3)
[2016-08-05 05:45] LABS: Calcium 8.3 mg/dL (8.4-10.2); Magnesium 2.6 mg/dL (1.6-2.3); Phosphorous 4.9 mg/dL (2.5-4.5); Potassium 4.4 mmol/L (3.5-5.1); Total Bilirubin 1.2 mg/dL (0.2-1.3); Total Protein 5.6 g/dL (6.3-8.2)
[2016-08-05] MEDS: CALCIUM ACETATE 667 MG CAP PO SCH ×3 (06:28→21:19)
[2016-08-05] MEDS: INSULIN LISPRO (humaLOG) 300 UNIT/3 ML VIAL SQ SCH ×6 (06:28→23:51)
[2016-08-05] MEDS: hydrALAZINE HCL 20 MG/ML 1 ML VIAL IVP PRN ×2 (06:45→14:21)
--- NOTE | 2016-08-05 07:19 | XR ---
EXAMINATION TYPE: XR chest 1V portable DATE OF EXAM: 08/05/2016 6:57 AM COMPARISON: Prior chest x-ray 04 August 2016 HISTORY: Postop cardiac surgery TECHNIQUE: Single frontal view of the chest is obtained. FINDINGS: Endotracheal and NG tubes have been removed. Right-sided PICC line, left-sided chest tube remain in place. Patient is rotated and the heart remains enlarged. There is obscured hemidiaphragms. Basilar density also obscures the right heart border. No sizable pneumothorax. IMPRESSION: Lower lobe atelectasis versus edema and possible associated effusion, correlate to exclu de pneumonia. Interval extubation. Additional follow-up recommended.
[2016-08-05 08:06] LABS: Glucose,Whole Blood 107 mg/dL (75-99)
[2016-08-05] MEDS: HEPARIN SODIUM,PORCINE 5,000 UNIT/ML 1 ML VIAL SQ SCH ×3 (08:14→23:51)
[2016-08-05] MEDS ORDERED: GELATIN SPONGE,ABSORB (SMALL) 1 EACH SPONGE ONE ×2 (09:00→16:00)
--- NOTE | 2016-08-05 09:11 | P.PN ---
Subjective Patient seen in follow-up for end-stage renal disease. He is maintained on hemodialysis on a Friday schedule. He was extubated August 04 and is currently on a BiPAP. He's been undergoing dialysis almost on a daily basis and had 4 L ultrafiltration yesterday. He underwent 2 bronchoscopies this admission revealing left lung bleeding. Bronchial washings positive for Pseudomonas. Vital signs are stable. General: The patient appeared well nourished and normally developed. HEENT: Head exam is unremarkable. Neck is without jugular venous distension. LUNGS: Diffuse rhonchi. Breath sounds decreased. HEART: Rate and Rhythm are regular. First and second heart sounds normal. No murmurs, rubs or gallops. ABDOMEN: Abdominal exam reveals normal bowel sounds. Non-tender and non- distended. No evidence of peritonitis. EXTREMITITES: 1+ edema. Objective - Vital Signs Vital signs: Vital Signs Temp 97.8 F 08/05/16 08:00 Pulse 92 08/05/16 08:00 Resp 32 H 08/05/16 08:00 BP 180/67 08/04/16 10:00 Pulse Ox 90 L 08/05/16 08:00 Intake & Output 08/04/16 08/05/16 08/05/16 18:59 06:59 18:59 Intake Total 385.049 63 40 Output Total 162 100 90 Balance 223.049 -37 -50 Intake: IV 276 63 40 0.9 240 60 40 Pressure Bag 36 3 Intake, IV Titration 9.049 Amount Propofol 500 mg In Empty 9.049 Bag 1 bag @ Titrate IV . Q0M [facility] Rx#:[id number] Tube Feeding 100 Output: Chest Tube Drainage 140 10 25 Chest Tube Lateral Chest 140 10 25 Urine 22 90 65 Other: Voiding Method Indwelling Catheter Indwelling Catheter # Voids 1 ABP, PAP, CO, CI - Last Documented Arterial Blood Pressure 102/84 Pulmonary Artery Pressure 40/30 Cardiac Output 6.4 Cardiac Index 3.3 - Labs CBC & Chem 7: 08/05/16 04:55 08/05/16 04:55 Labs: Abnormal Lab Results - Last 24 Hours (Table) 08/04/16 08/04/16 08/04/16 Range/Units 09:11 12:08 16:02 WBC (3.8-10.6) k/uL RBC (4.30-5.90) m/uL Hgb (13.0-17.5) gm/dL Hct (39.0-53.0) % RDW (11.5-15.5) % Neutrophils # (1.3-7.7) k/uL Lymphocytes # (1.0-4.8) k/uL ABG pCO2 34 L (35-45) mmHg ABG pO2 123 H (83-108) mmHg ABG O2 Saturation 99.0 H (94-97) % BUN (9-20) mg/dL Creatinine (0.66-1.25) mg/dL Glucose (74-99) mg/dL POC Glucose (mg/dL) 139 H 151 H (75-99) mg/dL Calcium (8.4-10.2) mg/dL Phosphorus (2.5-4.5) mg/dL Magnesium (1.6-2.3) mg/dL Alkaline Phosphatase (38-126) U/L Total Protein (6.3-8.2) g/dL Albumin (3.5-5.0) g/dL 08/04/16 08/04/16 08/05/16 Range/Units 20:33 23:44 04:55 WBC 15.0 H (3.8-10.6) k/uL RBC 2.98 L (4.30-5.90) m/uL Hgb 8.8 L (13.0-17.5) gm/dL Hct 28.3 L (39.0-53.0) % RDW 18.7 H (11.5-15.5) % Neutrophils # 13.8 H (1.3-7.7) k/uL Lymphocytes # 0.3 L (1.0-4.8) k/uL ABG pCO2 (35-45) mmHg ABG pO2 (83-108) mmHg ABG O2 Saturation (94-97) % BUN (9-20) mg/dL Creatinine (0.66-1.25) mg/dL Glucose (74-99) mg/dL POC Glucose (mg/dL) 105 H 121 H (75-99) mg/dL Calcium (8.4-10.2) mg/dL Phosphorus (2.5-4.5) mg/dL Magnesium (1.6-2.3) mg/dL Alkaline Phosphatase (38-126) U/L Total Protein (6.3-8.2) g/dL Albumin (3.5-5.0) g/dL 08/05/16 08/05/16 Range/Units 04:55 08:02 WBC (3.8-10.6) k/uL RBC (4.30-5.90) m/uL Hgb (13.0-17.5) gm/dL Hct (39.0-53.0) % RDW (11.5-15.5) % Neutrophils # (1.3-7.7) k/uL Lymphocytes # (1.0-4.8) k/uL ABG pCO2 (35-45) mmHg ABG pO2 (83-108) mmHg ABG O2 Saturation (94-97) % BUN 56 H (9-20) mg/dL Creatinine 3.20 H (0.66-1.25) mg/dL Glucose 121 H (74-99) mg/dL POC Glucose (mg/dL) 107 H (75-99) mg/dL Calcium 8.3 L (8.4-10.2) mg/dL Phosphorus 4.9 H (2.5-4.5) mg/dL Magnesium 2.6 H (1.6-2.3) mg/dL Alkaline Phosphatase 191 H (38-126) U/L Total Protein 5.6 L (6.3-8.2) g/dL Albumin 2.9 L (3.5-5.0) g/dL Microbiology - Last 24 Hours (Table) 07/31/16 05:55 Blood Culture - Preliminary Blood No Growth after 120 hours 07/31/16 05:55 Blood Culture - Preliminary Blood No Growth after 120 hours Assessment and Plan Plan: Assessment: #1. End-stage renal disease maintained on hemodialysis on a Friday schedule. #2. 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 #3. Left lung blood clots status post bronchoscopy 2. #4. Anemia. Hemoglobin 8.8 today. Plan: Hemodialysis today with goal 3-4 L ultrafiltration. Next treatment tomorrow. Maintain Aranesp. Continue antibiotics.
--- NOTE | 2016-08-05 09:45 | P.PN ---
Subjective Principal diagnosis: Non-ST elevation myocardial infarction. POD #7 non-aortic clamp off pump double coronary artery bypass grafting using the left internal mammary artery to the left anterior descending artery and reverse saphenous vein graft from the aorta to the posterior descending artery. Endoscopic harvesting of the right greater saphenous vein. Intraoperative transesophageal echocardiogram and epi-aortic scanning. Intraoperative graft flow measurements using the Oomnitzastim machine. Pt had intraparenchymal hemorrhage with increase oxygen demand after surgery requiring bronchoscopy. Bronchial washings demonstrate infection with pseudomonas, placed on IV zosyn, infectious disease following. Pt extubated yesterday, on 3 LPM NC, oxygen saturations were in the mid to high 90s overnight but on 90% this morning and pt very somnolent. Pt placed on bipap. Not awake enough for oral intake, will need NGT to receive oral meds. Objective - Vital Signs Vital signs: Vital Signs Temp 97.8 F 08/05/16 08:00 Pulse 90 08/05/16 09:00 Resp 29 H 08/05/16 09:00 BP 180/67 08/04/16 10:00 Pulse Ox 98 08/05/16 09:00 Intake & Output 08/04/16 08/05/16 08/05/16 18:59 06:59 18:59 Intake Total 385.049 63 60 Output Total 162 100 120 Balance 223.049 -37 -60 Intake: IV 276 63 60 0.9 240 60 60 Pressure Bag 36 3 Intake, IV Titration 9.049 Amount Propofol 500 mg In Empty 9.049 Bag 1 bag @ Titrate IV . Q0M [facility] Rx#:[id number] Tube Feeding 100 Output: Chest Tube Drainage 140 10 25 Chest Tube Lateral Chest 140 10 25 Urine 22 90 95 Other: Voiding Method Indwelling Catheter Indwelling Catheter # Voids 1 ABP, PAP, CO, CI - Last Documented Arterial Blood Pressure 111/91 Pulmonary Artery Pressure 40/30 Cardiac Output 6.4 Cardiac Index 3.3 - Constitutional General appearance: Present: no acute distress - Respiratory Details: Lungs sounds diminished w/ inspiratory/expiratory wheezes bilaterally. Respirations shallow. Patient being placed on BiPAP. No attempt at incentive spirometry. Left pleural chest tube with minimal serous output in the last 24 hours. - Cardiovascular Details: S1, S2 present. Regular rate and rhythm, normal sinus rhythm on telemetry. No events noted on telemetry overnight. Sternum stable. Bilateral upper extremity edema present. Teds/SCDs present. - Gastrointestinal Gastrointestinal Comment(s): Abdomen soft, nontender, nondistended. Hypoactive bowel sounds 4 quadrants. - Genitourinary Genitourinary Comment(s): Sparks present draining minimal clear, yellow urine. Left upper extremity AV fistula with positive bruit, positive thrill. - Integumentary Integumentary Comment(s): Anterior chest incision covered with dry intact silver dressing. Right lower extremity EVH site well approximated. - Musculoskeletal Musculoskeletal: Present: generalized weakness - Psychiatric Psychiatric Comment(s): Somnolent, difficult to arouse. Does open eyes but not for long. Attempts to squeeze with his hands but very weak. - Allied health notes Allied health notes reviewed: nursing - Labs CBC & Chem 7: 08/05/16 04:55 08/05/16 04:55 Labs: Abnormal Lab Results - Last 24 Hours (Table) 08/04/16 08/04/16 08/04/16 Range/Units 12:08 16:02 20:33 WBC (3.8-10.6) k/uL RBC (4.30-5.90) m/uL Hgb (13.0-17.5) gm/dL Hct (39.0-53.0) % RDW (11.5-15.5) % Neutrophils # (1.3-7.7) k/uL Lymphocytes # (1.0-4.8) k/uL BUN (9-20) mg/dL Creatinine (0.66-1.25) mg/dL Glucose (74-99) mg/dL POC Glucose (mg/dL) 139 H 151 H 105 H (75-99) mg/dL Calcium (8.4-10.2) mg/dL Phosphorus (2.5-4.5) mg/dL Magnesium (1.6-2.3) mg/dL Alkaline Phosphatase (38-126) U/L Total Protein (6.3-8.2) g/dL Albumin (3.5-5.0) g/dL 08/04/16 08/05/16 08/05/16 Range/Units 23:44 04:55 04:55 WBC 15.0 H (3.8-10.6) k/uL RBC 2.98 L (4.30-5.90) m/uL Hgb 8.8 L (13.0-17.5) gm/dL Hct 28.3 L (39.0-53.0) % RDW 18.7 H (11.5-15.5) % Neutrophils # 13.8 H (1.3-7.7) k/uL Lymphocytes # 0.3 L (1.0-4.8) k/uL BUN 56 H (9-20) mg/dL Creatinine 3.20 H (0.66-1.25) mg/dL Glucose 121 H (74-99) mg/dL POC Glucose (mg/dL) 121 H (75-99) mg/dL Calcium 8.3 L (8.4-10.2) mg/dL Phosphorus 4.9 H (2.5-4.5) mg/dL Magnesium 2.6 H (1.6-2.3) mg/dL Alkaline Phosphatase 191 H (38-126) U/L Total Protein 5.6 L (6.3-8.2) g/dL Albumin 2.9 L (3.5-5.0) g/dL 08/05/16 Range/Units 08:02 WBC (3.8-10.6) k/uL RBC (4.30-5.90) m/uL Hgb (13.0-17.5) gm/dL Hct (39.0-53.0) % RDW (11.5-15.5) % Neutrophils # (1.3-7.7) k/uL Lymphocytes # (1.0-4.8) k/uL BUN (9-20) mg/dL Creatinine (0.66-1.25) mg/dL Glucose (74-99) mg/dL POC Glucose (mg/dL) 107 H (75-99) mg/dL Calcium (8.4-10.2) mg/dL Phosphorus (2.5-4.5) mg/dL Magnesium (1.6-2.3) mg/dL Alkaline Phosphatase (38-126) U/L Total Protein (6.3-8.2) g/dL Albumin (3.5-5.0) g/dL Microbiology - Last 24 Hours (Table) 07/31/16 05:55 Blood Culture - Preliminary Blood No Growth after 120 hours 07/31/16 05:55 Blood Culture - Preliminary Blood No Growth after 120 hours - Imaging and Cardiology Chest x-ray: report reviewed, image reviewed Assessment and Plan (1) Non-STEMI (non-ST elevated myocardial infarction) Status: Acute (2) Hypertension Status: Acute (3) Hyperlipidemia Status: Acute (4) End-stage renal disease on hemodialysis Status: Acute Plan: 1. Continue aspirin, Lipitor, heparin SQ, lopressor, lisinopril. 2. Continue amiodarone for Afib prophylaxis. 3. Bipap management per pulmonology. Wean O2 as tolerated. 4. Dialysis again today per nephrology. 5. Will DC pleural chest tube today. 6. Continue Zosyn, ID following. 7. NGT to be placed to feed pt/give oral meds. 8. Will continue to monitor labs, chest x-rays. 9. Insulin management per primary service. 10. GI/DVT prophylaxis. 11. Will reapply hard boot to left lower extremity when patient extubated and ambulatory 12. More recommendations as patient progresses. Time with Patient: Greater than 30
[2016-08-05 09:46] LABS: ABG PH 7.45 (7.35-7.45)
[2016-08-05 09:47] LABS: ABG Base Excess 1.3 mmol/L; ABG HCO3 25 mmol/L (21-25); ABG PCO2 37 mmHg (35-45); ABG PO2 87 mmHg (83-108); ABG TCO2 26 mmol/L (19-24)
--- NOTE | 2016-08-05 10:52 | P.PN ---
Subjective Principal diagnosis: Status post CABG, postoperative day #7 This is a 80-year-old white male with history of multiple medical problems including hypertension, previous ischemic heart disease and mild aortic stenosis. End-stage renal disease on hemodialysis. History of rheumatoid arthritis, patient was admitted recently with chest pain, cardiac enzymes were suggestive of non-ST elevation myocardial infarction, cardiac cath showed significant coronary artery disease with critical lesion in the proximal LAD also the proximal RCA. Today, the patient underwent myocardial revascularization by Dr. Alcaraz, and he was placed on mechanical ventilation postoperatively, seen in the ICU for consultation and postoperative ventilator management. Presently, the patient is on 100% FiO2, assist control rate of 12, PEEP of 5, and tidal volume of 500. Initial ABG showed a pO2 of 364, pCO2 of 42 pH of 7.32. However shortly after patient was placed on a 50% FiO2, and he was noted to have significant drop in his saturation based on pulse oximetry. Repeat ABG showed worsening oxygenation with a pO2 of 46 pCO2 of 50 and pH of 7.28. Hence placed back on 100%, increased his rate up to 16, and increased the PEEP to 10. Follow-up chest x-ray showed worsening pulmonary edema, remind you patient is a hemodialysis patient. Follow-up ABG is pending. Patient is presently fully sedated, and in no distress. Reevaluated today on 07/30/2016, patient is status post off pump double coronary artery bypass grafting using L REJI to LAD, and reverse saphenous vein graft from the aorta to the posterior descending artery.patient remains on mechanical ventilation, chest x-ray is showing worsening picture of pulmonary edema, however the possibility of bleeding into the left midlung area and left lower lobe is not entirely ruled out there seems to be a worsening consolidation in the area of the left midlung and left lower lobe, hence may consider bronchoscopy on this patient. In the meantime, patient is being ultrafiltrate it today, and hopefully that will make a significant improvement on the chest x- ray appearance, and may help oxygenation.labs were reviewed, WBC count is 9.8 hemoglobin is 7.6 it was 6.5 earlier today,patient received a total of 5 units of packed RBCs since admission, 2 units of fresh frozen plasma, and 3 units of platelets. Reevaluated today on 07/31/2016, patient underwent another bronchoscopy today although his chest x-ray was showing some improvement compared to the chest x- ray yesterday after bronchoscopy. There was evidence of more aeration of the left upper lobe and lingula on the chest x-ray today. Today I was able to clear plugs from the left lower lobe bronchus, and from the lingular bronchus. Throughout the procedure there was some oozing of blood, and the mucosa of the bronchial tube was noted to be very fragile and bled easily. No biopsies were done. But suctioning and lavages of the left lower lobe and lingula was performed. In the meantime the patient remains on mechanical ventilations, today I increased his tidal volume up to 550 kept him on assist control rate of 16 I increased the flow rates up to 70, and FiO2 will be titrated down from 100 % during the bronchoscopy to as low as 50% as tolerated, and PEEP remains at 10 for the time being. Labs were reviewed, hemoglobin is 7.9 platelets are 114. Electrolytes were reviewed BUN is 31 creatinine is 4.29. On 08/01/2016, patient remains on mechanical ventilation, we were able earlier today to cut down the FiO2 to 50%, and PEEP was down to as low as 5%. However as the hemodialysis was started, patient began to desaturate, hence went back to a PEEP of 8. And increase his FiO2 to 55%. Patient is now undergoing hemodialysis, his chest x-ray is showing definite improvement, hence no need for bronchoscopy and evaluation of the left lung today. Still suctioning some bloody secretions from the endotracheal tube by respiratory. Labs were reviewed , hemoglobin is 7.3 today. Platelets are 101, INR is 1.1 electrolytes and renal profile were reviewed BUN is 24 creatinine is 3.24. Elevation of the left lung is definitely improved, small bilateral pleural effusions were noted On 08/02/2016, patient was reevaluated. I had to bronchoscope the patient late in the afternoon yesterday because of worsening chest x-ray and the patient continued to desaturate intermittently requiring increasing the FiO2 to 100%. Lavage was done of the left lower lobe lingula and left upper lobe, patient was placed on Decadron, cultures from the previous bronchoscopy came back positive for Pseudomonas, hence I started the patient today on Zosyn, and the patient is being followed by infectious disease on consultation. Patient remains on mechanical ventilation today, he is on a 50% and PEEP of 8 ABG showed a pO2 of 85 pCO2 of 33 pH of 7.48. Chest x-ray is showing better aeration of the left upper lobe lingula and left lower lobe, continues to have some atelectasis in the left lower lobe itself. It is not going to be dialyzed today, but will be dialyzed in a.m. BUN is 23 creatinine is 2.80 patient remains sedated on mechanical ventilation, however we plan to discontinue propofol briefly, assess his mental status today, and again he is not quite ready for extubation and weaning at this point. But this will definitely be addressed again tomorrow assuming his chest x-ray continues to show improvement. Reevaluated today on 08/03/2016, remains on mechanical ventilation, chest x-ray is showing definite improvement in the aeration of the left lung, patient will not eat to be bronchoscope today. However I do plan to consider a weaning trial on this patient today after hemodialysis. If tolerated may even proceeded to extubating the patient. ABG this morning showed a pO2 of 113 pCO2 of 29 pH of 7.50 hence I cut down the rate to 12, I also cut down the PEEP from 10-5. CBC showed hemoglobin of 7.1, I will leave it up to the surgeons to decide whether the patient needs to be transfused at this point. This may be done at the time of his dialysis. Electrolytes were reviewed BUN is 47 creatinine is 3.40. Chest x-ray as noted above. Reevaluated on 08/04/2016, remains on mechanical ventilation, chest x-ray today is showing slight worsening, I suspect there is some interstitial edema, and possibly minimal left lower lobe atelectasis or pneumonia involving the left lower lobe. ABG showed a pO2 of 123 pCO2 of 34 pH of 7.44 patient is presently on a PEEP of 5 and FiO2 of 50%. He has been off propofol for quite some time overnight, and I was hoping to assess his mental status today and likely extubated. However the patient remains lethargic off propofol, and considering the worsening of the chest x-ray, will likely have the patient dialyzed today, and address weaning again either later today or in a.m. We'll cut down the dose of Decadron, WBC count is down to 16.1 hemoglobin is 9.0 today The patient was seen again today in follow-up 08/05/2016. He was extubated approximately 5 PM yesterday and was maintained on 5 L/m per nasal cannula. This morning his saturations were 89-90%. He was seen by Dr. Alcaraz who placed the patient on BiPAP at 12/6 and 50%. Current blood gases reveal a pO2 of 87, pCO2 37, pH 7.45. A mild respiratory alkalosis. He is currently off sedation he has not received any pain medication or other forms of sedation. He is still quite difficult to arouse. He does open his eyes to verbal stimuli and he is moving all fours. He is maintaining good O2 saturations on 50%. He has a 0.9 normal saline at [facility]. He did receive dialysis again today with the plans to remove 4 L. His current creatinine is 3.20, BUN 56, hemoglobin 8.8 The bronchial wash did reveal pseudomonas aeruginosa. He is currently on Zosyn. Objective - Vital Signs Vital signs: Vital Signs Temp 97.8 F 08/05/16 08:00 Pulse 90 08/05/16 09:00 Resp 29 H 08/05/16 09:00 BP 180/67 08/04/16 10:00 Pulse Ox 98 08/05/16 09:00 Intake & Output 08/04/16 08/05/16 08/05/16 18:59 06:59 18:59 Intake Total 385.049 63 60 Output Total 162 100 120 Balance 223.049 -37 -60 Intake: IV 276 63 60 0.9 240 60 60 Pressure Bag 36 3 Intake, IV Titration 9.049 Amount Propofol 500 mg In Empty 9.049 Bag 1 bag @ Titrate IV . Q0M [facility] Rx#:[id number] Tube Feeding 100 Output: Chest Tube Drainage 140 10 25 Chest Tube Lateral Chest 140 10 25 Urine 22 90 95 Other: Voiding Method Indwelling Catheter Indwelling Catheter Indwelling Catheter # Voids 1 ABP, PAP, CO, CI - Last Documented Arterial Blood Pressure 111/91 Pulmonary Artery Pressure 40/30 Cardiac Output 6.4 Cardiac Index 3.3 - Exam GENERAL EXAM: Somewhat lethargic, currently on BiPAP. HEAD: Normocephalic. EYES: Sluggish reaction of pupils, equal size. NOSE: Clear with pink turbinates. THROAT: No erythema or exudates. NECK: No masses, no JVD. CHEST: No chest wall deformity. LUNGS: Equal air entry with crackles in the posterior bases. CVS: S1 and S2 normal with no audible murmurs, regular rhythm. ABDOMEN: No hepatosplenomegaly, normal bowel sounds. SPINE: No scoliosis or deformity SKIN: No rashes Extremities: There is trace peripheral edema. No clubbing, no cyanosis. Peripheral pulses are intact. - Labs CBC & Chem 7: 08/05/16 04:55 08/05/16 04:55 Labs: Abnormal Lab Results - Last 24 Hours (Table) 08/04/16 08/04/16 08/04/16 Range/Units 12:08 16:02 20:33 WBC (3.8-10.6) k/uL RBC (4.30-5.90) m/uL Hgb (13.0-17.5) gm/dL Hct (39.0-53.0) % RDW (11.5-15.5) % Neutrophils # (1.3-7.7) k/uL Lymphocytes # (1.0-4.8) k/uL ABG Total CO2 (19-24) mmol/L BUN (9-20) mg/dL Creatinine (0.66-1.25) mg/dL Glucose (74-99) mg/dL POC Glucose (mg/dL) 139 H 151 H 105 H (75-99) mg/dL Calcium (8.4-10.2) mg/dL Phosphorus (2.5-4.5) mg/dL Magnesium (1.6-2.3) mg/dL Alkaline Phosphatase (38-126) U/L Total Protein (6.3-8.2) g/dL Albumin (3.5-5.0) g/dL 08/04/16 08/05/16 08/05/16 Range/Units 23:44 04:55 04:55 WBC 15.0 H (3.8-10.6) k/uL RBC 2.98 L (4.30-5.90) m/uL Hgb 8.8 L (13.0-17.5) gm/dL Hct 28.3 L (39.0-53.0) % RDW 18.7 H (11.5-15.5) % Neutrophils # 13.8 H (1.3-7.7) k/uL Lymphocytes # 0.3 L (1.0-4.8) k/uL ABG Total CO2 (19-24) mmol/L BUN 56 H (9-20) mg/dL Creatinine 3.20 H (0.66-1.25) mg/dL Glucose 121 H (74-99) mg/dL POC Glucose (mg/dL) 121 H (75-99) mg/dL Calcium 8.3 L (8.4-10.2) mg/dL Phosphorus 4.9 H (2.5-4.5) mg/dL Magnesium 2.6 H (1.6-2.3) mg/dL Alkaline Phosphatase 191 H (38-126) U/L Total Protein 5.6 L (6.3-8.2) g/dL Albumin 2.9 L (3.5-5.0) g/dL 08/05/16 08/05/16 Range/Units 08:02 09:22 WBC (3.8-10.6) k/uL RBC (4.30-5.90) m/uL Hgb (13.0-17.5) gm/dL Hct (39.0-53.0) % RDW (11.5-15.5) % Neutrophils # (1.3-7.7) k/uL Lymphocytes # (1.0-4.8) k/uL ABG Total CO2 26 H (19-24) mmol/L BUN (9-20) mg/dL Creatinine (0.66-1.25) mg/dL Glucose (74-99) mg/dL POC Glucose (mg/dL) 107 H (75-99) mg/dL Calcium (8.4-10.2) mg/dL Phosphorus (2.5-4.5) mg/dL Magnesium (1.6-2.3) mg/dL Alkaline Phosphatase (38-126) U/L Total Protein (6.3-8.2) g/dL Albumin (3.5-5.0) g/dL Microbiology - Last 24 Hours (Table) 07/31/16 05:55 Blood Culture - Preliminary Blood No Growth after 120 hours 07/31/16 05:55 Blood Culture - Preliminary Blood No Growth after 120 hours Assessment and Plan Plan: Plan: Impression: 1 status post CABG, on mechanical ventilation, postoperative day #7 2 acute pulmonary edema as noted on the chest x-ray, patient is a hemodialysis patient and his history of chronic renal disease. 3 history of mild aortic stenosis 4 history of mild LV dysfunction 5 history of chronic anemia 6 history of chronic renal failure on hemodialysis 7 history of hypertension 8 history of hyperlipidemia 9 history of right groin pseudoaneurysm following cardiac catheterization. 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 However the patient will not need to be bronchoscoped on 08/02. And on 08/03. And on 08/04 13 acute ventilator associated pneumonia is strongly suspected, patient has Pseudomonas in his bronchial washing from the left lower lobe, hence will continue Zosyn Plan: The patient was seen and evaluated by Dr. Cary. His chest x-ray, ABGs and labs were reviewed. We'll continue with his current medications. We'll continue to hold any form of sedation. We'll attempt to wean from the BiPAP as he progresses. Hemodialysis is currently in place. We will continue with bronchodilators 4 times a day and when necessary. He remains on Decadron 4 mg every 12 hours. He remains on IV Protonix. We'll repeat his chest x-ray and labs in the a.m. We'll continue to follow. Critical care time 36 minutes. Time with Patient: Greater than 30
[2016-08-05] MEDS: IPRATROPIUM-ALBUTEROL 3 ML NEB INHALATION SCH ×3 (11:44→19:36)
[2016-08-05 11:51] LABS: Glucose,Whole Blood 96 mg/dL (75-99)
[2016-08-05 12:39] LABS: Glucose,Whole Blood 96 mg/dL (75-99)
[2016-08-05] MEDS: VITAMIN A 10,000 UNIT CAPSULE PO SCH (13:00)
[2016-08-05] MEDS: FOLIC ACID 1 MG TAB PO SCH (13:00)
[2016-08-05] MEDS: AMIODARONE 200 MG TAB PO SCH ×2 (13:01→21:20)
[2016-08-05] MEDS: METOPROLOL TARTRATE 12.5 MG TAB PO SCH ×2 (13:01→21:20)
[2016-08-05] MEDS: LISINOPRIL 10 MG TAB PO SCH (13:01)
[2016-08-05] MEDS: ASPIRIN 81 MG CHEW PO SCH (13:01)
[2016-08-05] MEDS: PANTOPRAZOLE 40 MG/10 ML VIAL IVP SCH (13:02)
[2016-08-05] MEDS: ATORVASTATIN 40 MG TAB PO SCH (13:02)
[2016-08-05] MEDS: PIPERACILLIN-TAZOBACTAM 3.375 GM in DEXTROSE/WATER 1 50ML.BAG IVPB SCH ×2 (13:02→21:22)
[2016-08-05] MEDS: DEXAMETHASONE SOD PHOSPHATE 4 MG/ML 1 ML VIAL IV SCH ×2 (13:02→21:20)
--- NOTE | 2016-08-05 14:06 | XR ---
EXAMINATION TYPE: XR chest 1V portable DATE OF EXAM: 08/05/2016 1:48 PM Comparison: Earlier today Clinical History: 80-year-old male shortness of breath, confirm line placement Findings: Rotated exam. Patient oblique to the left. Median sternotomy wires are present with post-CABG clips i n the mediastinum. Heart is borderline enlarged with continued interstitial and bibasilar opacities w ith small effusions. Aeration at the right base has slightly improved. NG tube is present. Right PICC tip at the lower SVC level. Left chest tube appears to have been removed. Impression: 1. Right PICC tip at the lower SVC. 2. Left chest tube appears to be normal. No appreciable pneumothorax. 3. Rotated exam. Correlate for CHF with pulmonary vascular congestion and mild bibasilar pulmonary ed meg. Aeration has partially improved at the right base. 4. Small effusions persist.
--- NOTE | 2016-08-05 16:31 | P.PN ---
Subjective Principal diagnosis: Status post CABG This is 80-year-old gentleman with history of hypertension, mild aortic stenosis was recently admitted to [facility] with complaints of shortness of breath and evidence of non-ST elevation CO. Subsequent cardiac catheterization showed significant disease and patient underwent right coronary bypass surgery with graft to the LAD and right coronary artery. His postoperative course was complicated by bronchial bleeding and respiratory difficulties. Patient is extubated and is on dialysis. Patient is a awake and does follow commands. He doesn't seem to be in extreme respiratory distress. His vital signs are stable. Patient is on BiPAP with 45% FiO2. His heart rate is in the 80s. Blood pressure is about 140-160/60. We'll continue current medical therapy. Patient is going to be taken off about 4 L of fluid today. Objective - Vital Signs Vital signs: Vital Signs Temp 97.9 F 08/05/16 12:00 Pulse 87 08/05/16 15:39 Resp 32 H 08/05/16 15:00 BP 130/75 08/05/16 13:00 Pulse Ox 99 08/05/16 15:29 Intake & Output 08/04/16 08/05/16 08/05/16 18:59 06:59 18:59 Intake Total 385.049 63 205.0 Output Total 162 100 120 Balance 223.049 -37 85.0 Weight 87.5 kg Intake: IV 276 63 120 0.9 240 60 120 Pressure Bag 36 3 Intake, IV Titration 9.049 85.0 Amount Piperacillin-Tazobactam 3 25.0 .375 gm In Dextrose/Water 1 50ml.bag @ 12.5 mls/hr IVPB Q12HR RINA Rx#: [id number] Propofol 500 mg In Empty 9.049 Bag 1 bag @ Titrate IV . Q0M RINA Rx#:[id number] Sodium Chloride 0.9% 1, 60 000 ml @ 20 mls/hr IV . Q24H RINA Rx#:[id number] Tube Feeding 100 Output: Chest Tube Drainage 140 10 25 Chest Tube Lateral Chest 140 10 25 Urine 22 90 95 Other: Voiding Method Indwelling Catheter Indwelling Catheter Indwelling Catheter # Voids 1 # Bowel Movements 1 ABP, PAP, CO, CI - Last Documented Arterial Blood Pressure 162/49 Pulmonary Artery Pressure 40/30 Cardiac Output 6.4 Cardiac Index 3.3 - Labs CBC & Chem 7: 08/05/16 04:55 08/05/16 04:55 Labs: Abnormal Lab Results - Last 24 Hours (Table) 08/04/16 08/04/16 08/05/16 Range/Units 20:33 23:44 04:55 WBC 15.0 H (3.8-10.6) k/uL RBC 2.98 L (4.30-5.90) m/uL Hgb 8.8 L (13.0-17.5) gm/dL Hct 28.3 L (39.0-53.0) % RDW 18.7 H (11.5-15.5) % Neutrophils # 13.8 H (1.3-7.7) k/uL Lymphocytes # 0.3 L (1.0-4.8) k/uL ABG Total CO2 (19-24) mmol/L BUN (9-20) mg/dL Creatinine (0.66-1.25) mg/dL Glucose (74-99) mg/dL POC Glucose (mg/dL) 105 H 121 H (75-99) mg/dL Calcium (8.4-10.2) mg/dL Phosphorus (2.5-4.5) mg/dL Magnesium (1.6-2.3) mg/dL Alkaline Phosphatase (38-126) U/L Total Protein (6.3-8.2) g/dL Albumin (3.5-5.0) g/dL 08/05/16 08/05/16 08/05/16 Range/Units 04:55 08:02 09:22 WBC (3.8-10.6) k/uL RBC (4.30-5.90) m/uL Hgb (13.0-17.5) gm/dL Hct (39.0-53.0) % RDW (11.5-15.5) % Neutrophils # (1.3-7.7) k/uL Lymphocytes # (1.0-4.8) k/uL ABG Total CO2 26 H (19-24) mmol/L BUN 56 H (9-20) mg/dL Creatinine 3.20 H (0.66-1.25) mg/dL Glucose 121 H (74-99) mg/dL POC Glucose (mg/dL) 107 H (75-99) mg/dL Calcium 8.3 L (8.4-10.2) mg/dL Phosphorus 4.9 H (2.5-4.5) mg/dL Magnesium 2.6 H (1.6-2.3) mg/dL Alkaline Phosphatase 191 H (38-126) U/L Total Protein 5.6 L (6.3-8.2) g/dL Albumin 2.9 L (3.5-5.0) g/dL Microbiology - Last 24 Hours (Table) 07/31/16 05:55 Blood Culture - Preliminary Blood No Growth after 120 hours 07/31/16 05:55 Blood Culture - Preliminary Blood No Growth after 120 hours Assessment and Plan (1) Status post aorto-coronary artery bypass graft Status: Acute (2) End-stage renal disease on hemodialysis Status: Acute (3) Hyperlipidemia Status: Acute (4) Hypertension Status: Acute (5) Non-STEMI (non-ST elevated myocardial infarction) Status: Acute Plan: Continue current management. Incentive spirometry and physical therapy. Patient is currently on amiodarone, metoprolol, lisinopril and also Lipitor. We 'll follow him along with you
[2016-08-05 17:13] LABS: Glucose,Whole Blood 109 mg/dL (75-99)
[2016-08-05 20:16] LABS: Glucose,Whole Blood 120 mg/dL (75-99)
[2016-08-05] MEDS: SODIUM CHLORIDE 0.9% 1,000 ML IV SCH (21:19)
[2016-08-05] MEDS: SENNOSIDES-DOCUSATE SODIUM 1 EACH TAB PO SCH (21:21)
[2016-08-05] MEDS: HYDROcodone/APAP 5-325MG 1 EACH TAB PO PRN (21:46)
[2016-08-05 22:24] LABS: ABG PCO2 37 mmHg (35-45); ABG PH 7.46 (7.35-7.45); ABG PO2 111 mmHg (83-108)
[2016-08-05 22:25] LABS: ABG Base Excess 1.8 mmol/L; ABG HCO3 25 mmol/L (21-25); ABG TCO2 27 mmol/L (19-24)
[2016-08-05 23:48] LABS: Glucose,Whole Blood 145 mg/dL (75-99)
[2016-08-06 04:56] LABS: Glucose,Whole Blood 142 mg/dL (75-99)
[2016-08-06] MEDS: INSULIN LISPRO (humaLOG) 300 UNIT/3 ML VIAL SQ SCH ×5 (04:56→22:20)
[2016-08-06 05:09] LABS: Anisocytosis Slight; Basophils % (A) 0 %; CHCM 31.5; Eosinophils % (A) 0 %; HCT 28.6 % (39.0-53.0); HDW 3.47; Hypochromasia Slight; Luc # (Auto) 0.15; Luc % (Auto) 1; Lymphocytes # (A) 0.3 k/uL (1.0-4.8); Lymphocytes % (A) 2 %; MCH 30.1 pg (25.0-35.0); MCHC 31.3 g/dL (31.0-37.0); Macrocytosis Slight; Mean Platelet Volume 8.4; Monocytes # (A) 0.4 k/uL (0-1.0); Monocytes % (A) 4 %; Neutrophils # (A) 11.6 k/uL (1.3-7.7); Neutrophils % (A) 93 %; Poikilocytosis Slight; RBC 2.98 m/uL (4.30-5.90); RDW 18.9 % (11.5-15.5); WBC 12.5 k/uL (3.8-10.6); WBC (Perox) 13.11
[2016-08-06 05:36] LABS: Calcium 8.5 mg/dL (8.4-10.2); Magnesium 2.7 mg/dL (1.6-2.3); Phosphorous 5.2 mg/dL (2.5-4.5); Total Bilirubin 1.2 mg/dL (0.2-1.3); Total Protein 5.6 g/dL (6.3-8.2)
[2016-08-06 05:43] LABS: Potassium 4.3 mmol/L (3.5-5.1)
[2016-08-06 08:06] LABS: Glucose,Whole Blood 141 mg/dL (75-99)
--- NOTE | 2016-08-06 08:42 | P.PN ---
<Karis Stephens - Last Filed: 08/06/16 08:42> Subjective Principal diagnosis: Non-ST elevation myocardial infarction. POD #8 non-aortic clamp off pump double coronary artery bypass grafting using the left internal mammary artery to the left anterior descending artery and reverse saphenous vein graft from the aorta to the posterior descending artery. Endoscopic harvesting of the right greater saphenous vein. Intraoperative transesophageal echocardiogram and epi-aortic scanning. Intraoperative graft flow measurements using the Medistim machine. Pt had intraparenchymal hemorrhage with increase oxygen demand after surgery requiring bronchoscopy. Bronchial washings demonstrate infection with pseudomonas, placed on IV zosyn, infectious disease following. Pt remains on bipap but more awake this morning. Opening eyes and tracking, nodding/shaking head appropriately, follows commands but still has generalized weakness. NGT was placed and pt is being fed. Objective - Vital Signs Vital signs: Vital Signs Temp 97.9 F 08/06/16 04:00 Pulse 86 08/06/16 07:00 Resp 23 08/06/16 07:00 BP 130/75 08/05/16 13:00 Pulse Ox 100 08/06/16 07:00 Intake & Output 08/05/16 08/06/16 08/06/16 18:59 06:59 18:59 Intake Total 312.5 696.0 53 Output Total 2720 87 3 Balance -2407.5 609.0 50 Weight 87.5 kg 87.8 kg Intake: IV 120 216 23 0.9 120 180 20 Pressure Bag 36 3 Intake, IV Titration 182.5 50.0 Amount Piperacillin-Tazobactam 3 62.5 50.0 .375 gm In Dextrose/Water 1 50ml.bag @ 12.5 mls/hr IVPB Q12HR RINA Rx#: [id number] Sodium Chloride 0.9% 1, 120 000 ml @ 20 mls/hr IV . Q24H RINA Rx#:[id number] Tube Feeding 10 280 30 Other 150 Output: Chest Tube Drainage 25 Chest Tube Lateral Chest 25 Urine 95 87 3 Other 2600 Other: Voiding Method Indwelling Catheter Indwelling Catheter # Bowel Movements 1 ABP, PAP, CO, CI - Last Documented Arterial Blood Pressure 145/47 Pulmonary Artery Pressure 40/30 Cardiac Output 6.4 Cardiac Index 3.3 - Constitutional General appearance: Present: cooperative, no acute distress - Respiratory Details: Lung sounds diminished bilaterally. Resp even, non-labored on bipap. Current settings FiO2 35%, IPAP 12, EPAP 6. - Cardiovascular Details: S1/S2 present. Reg rate/rhythm, NSR on telemetry with no events noted overnight. Sternum stable. Heart hugger/Teds/SCDs in place. Mitchell upper extremity edema present. - Gastrointestinal Gastrointestinal Comment(s): Abd soft/NT/ND. Active BS x 4 quadrants. Vital TF @ 30 ml/hr through NGT. - Genitourinary Genitourinary Comment(s): Sparks present draining minimal clear, yellow urine. - Integumentary Integumentary Comment(s): Ant chest incision covered with dry, intact silver dressing. Right lower extremity EVH site will approximated. - Musculoskeletal Musculoskeletal: Present: generalized weakness - Psychiatric Psychiatric Comment(s): More alert, awake. Following commands. - Allied health notes Allied health notes reviewed: nursing - Labs CBC & Chem 7: 08/06/16 04:55 08/06/16 04:55 Labs: Abnormal Lab Results - Last 24 Hours (Table) 08/05/16 08/05/16 08/05/16 Range/Units 09:22 17:10 20:15 WBC (3.8-10.6) k/uL RBC (4.30-5.90) m/uL Hgb (13.0-17.5) gm/dL Hct (39.0-53.0) % RDW (11.5-15.5) % Neutrophils # (1.3-7.7) k/uL Lymphocytes # (1.0-4.8) k/uL ABG pH (7.35-7.45) ABG pO2 (83-108) mmHg ABG Total CO2 26 H (19-24) mmol/L ABG O2 Saturation (94-97) % BUN (9-20) mg/dL Creatinine (0.66-1.25) mg/dL Glucose (74-99) mg/dL POC Glucose (mg/dL) 109 H 120 H (75-99) mg/dL Phosphorus (2.5-4.5) mg/dL Magnesium (1.6-2.3) mg/dL Alkaline Phosphatase (38-126) U/L Total Protein (6.3-8.2) g/dL Albumin (3.5-5.0) g/dL 08/05/16 08/05/16 08/06/16 Range/Units 21:25 23:42 04:55 WBC 12.5 H (3.8-10.6) k/uL RBC 2.98 L (4.30-5.90) m/uL Hgb 9.0 L (13.0-17.5) gm/dL Hct 28.6 L (39.0-53.0) % RDW 18.9 H (11.5-15.5) % Neutrophils # 11.6 H (1.3-7.7) k/uL Lymphocytes # 0.3 L (1.0-4.8) k/uL ABG pH 7.46 H (7.35-7.45) ABG pO2 111 H (83-108) mmHg ABG Total CO2 27 H (19-24) mmol/L ABG O2 Saturation 98.0 H (94-97) % BUN (9-20) mg/dL Creatinine (0.66-1.25) mg/dL Glucose (74-99) mg/dL POC Glucose (mg/dL) 145 H (75-99) mg/dL Phosphorus (2.5-4.5) mg/dL Magnesium (1.6-2.3) mg/dL Alkaline Phosphatase (38-126) U/L Total Protein (6.3-8.2) g/dL Albumin (3.5-5.0) g/dL 08/06/16 08/06/16 08/06/16 Range/Units 04:55 04:55 08:04 WBC (3.8-10.6) k/uL RBC (4.30-5.90) m/uL Hgb (13.0-17.5) gm/dL Hct (39.0-53.0) % RDW (11.5-15.5) % Neutrophils # (1.3-7.7) k/uL Lymphocytes # (1.0-4.8) k/uL ABG pH (7.35-7.45) ABG pO2 (83-108) mmHg ABG Total CO2 (19-24) mmol/L ABG O2 Saturation (94-97) % BUN 64 H (9-20) mg/dL Creatinine 3.60 H (0.66-1.25) mg/dL Glucose 142 H (74-99) mg/dL POC Glucose (mg/dL) 142 H 141 H (75-99) mg/dL Phosphorus 5.2 H (2.5-4.5) mg/dL Magnesium 2.7 H (1.6-2.3) mg/dL Alkaline Phosphatase 155 H (38-126) U/L Total Protein 5.6 L (6.3-8.2) g/dL Albumin 2.8 L (3.5-5.0) g/dL Microbiology - Last 24 Hours (Table) 07/31/16 05:55 Blood Culture - Final Blood No Growth after 144 hours 07/31/16 05:55 Blood Culture - Final Blood No Growth after 144 hours - Imaging and Cardiology Chest x-ray: image reviewed Assessment and Plan (1) Non-STEMI (non-ST elevated myocardial infarction) Status: Acute (2) Hypertension Status: Acute (3) Hyperlipidemia Status: Acute (4) End-stage renal disease on hemodialysis Status: Acute Plan: 1. Continue aspirin, Lipitor, heparin SQ, lopressor, lisinopril. 2. Continue amiodarone for Afib prophylaxis. 3. Bipap management per pulmonology. Wean O2 as tolerated. 4. Dialysis again today per nephrology. 5. Continue Zosyn, ID following. 6. Continue with nutrition through NGT until pt able to swallow safely. 7. Will continue to monitor labs, chest x-rays. 8. Insulin management per primary service. 9. GI/DVT prophylaxis. 10. Will reapply hard boot to left lower extremity when patient extubated and ambulatory 11. More recommendations as patient progresses. Time with Patient: Greater than 30 <Guero Juárez - Last Filed: 08/06/16 16:27> Objective - Vital Signs Vital signs: Vital Signs Temp 98 F 08/06/16 13:00 Pulse 97 08/06/16 15:56 Resp 20 08/06/16 15:00 BP 130/75 08/05/16 13:00 Pulse Ox 95 08/06/16 15:40 Intake & Output 08/05/16 08/06/16 08/06/16 18:59 06:59 18:59 Intake Total 312.5 696.0 587 Output Total 2720 87 78 Balance -2407.5 609.0 509 Weight 87.5 kg 87.8 kg 87.8 kg Intake: IV 120 216 47 0.9 120 180 20 Pressure Bag 36 27 Intake, IV Titration 182.5 50.0 210 Amount Piperacillin-Tazobactam 3 62.5 50.0 50 .375 gm In Dextrose/Water 1 50ml.bag @ 12.5 mls/hr IVPB Q12HR RINA Rx#: [id number] Sodium Chloride 0.9% 1, 120 160 000 ml @ 20 mls/hr IV . Q24H IRNA Rx#:[id number] Tube Feeding 10 280 300 Other 150 30 Output: Chest Tube Drainage 25 Chest Tube Lateral Chest 25 Urine 95 87 78 Other 2600 Other: Voiding Method Indwelling Catheter Indwelling Catheter Indwelling Catheter # Bowel Movements 1 ABP, PAP, CO, CI - Last Documented Arterial Blood Pressure 150/51 Pulmonary Artery Pressure 40/30 Cardiac Output 6.4 Cardiac Index 3.3 - Labs CBC & Chem 7: 08/06/16 04:55 08/06/16 04:55 Labs: Abnormal Lab Results - Last 24 Hours (Table) 08/05/16 08/05/16 08/05/16 Range/Units 17:10 20:15 21:25 WBC (3.8-10.6) k/uL RBC (4.30-5.90) m/uL Hgb (13.0-17.5) gm/dL Hct (39.0-53.0) % RDW (11.5-15.5) % Neutrophils # (1.3-7.7) k/uL Lymphocytes # (1.0-4.8) k/uL ABG pH 7.46 H (7.35-7.45) ABG pO2 111 H (83-108) mmHg ABG Total CO2 27 H (19-24) mmol/L ABG O2 Saturation 98.0 H (94-97) % BUN (9-20) mg/dL Creatinine (0.66-1.25) mg/dL Glucose (74-99) mg/dL POC Glucose (mg/dL) 109 H 120 H (75-99) mg/dL Phosphorus (2.5-4.5) mg/dL Magnesium (1.6-2.3) mg/dL Alkaline Phosphatase (38-126) U/L Total Protein (6.3-8.2) g/dL Albumin (3.5-5.0) g/dL 08/05/16 08/06/16 08/06/16 Range/Units 23:42 04:55 04:55 WBC 12.5 H (3.8-10.6) k/uL RBC 2.98 L (4.30-5.90) m/uL Hgb 9.0 L (13.0-17.5) gm/dL Hct 28.6 L (39.0-53.0) % RDW 18.9 H (11.5-15.5) % Neutrophils # 11.6 H (1.3-7.7) k/uL Lymphocytes # 0.3 L (1.0-4.8) k/uL ABG pH (7.35-7.45) ABG pO2 (83-108) mmHg ABG Total CO2 (19-24) mmol/L ABG O2 Saturation (94-97) % BUN 64 H (9-20) mg/dL Creatinine 3.60 H (0.66-1.25) mg/dL Glucose 142 H (74-99) mg/dL POC Glucose (mg/dL) 145 H (75-99) mg/dL Phosphorus 5.2 H (2.5-4.5) mg/dL Magnesium 2.7 H (1.6-2.3) mg/dL Alkaline Phosphatase 155 H (38-126) U/L Total Protein 5.6 L (6.3-8.2) g/dL Albumin 2.8 L (3.5-5.0) g/dL 08/06/16 08/06/16 08/06/16 Range/Units 04:55 08:04 12:12 WBC (3.8-10.6) k/uL RBC (4.30-5.90) m/uL Hgb (13.0-17.5) gm/dL Hct (39.0-53.0) % RDW (11.5-15.5) % Neutrophils # (1.3-7.7) k/uL Lymphocytes # (1.0-4.8) k/uL ABG pH (7.35-7.45) ABG pO2 (83-108) mmHg ABG Total CO2 (19-24) mmol/L ABG O2 Saturation (94-97) % BUN (9-20) mg/dL Creatinine (0.66-1.25) mg/dL Glucose (74-99) mg/dL POC Glucose (mg/dL) 142 H 141 H 141 H (75-99) mg/dL Phosphorus (2.5-4.5) mg/dL Magnesium (1.6-2.3) mg/dL Alkaline Phosphatase (38-126) U/L Total Protein (6.3-8.2) g/dL Albumin (3.5-5.0) g/dL Microbiology - Last 24 Hours (Table) 07/31/16 05:55 Blood Culture - Final Blood No Growth after 144 hours 07/31/16 05:55 Blood Culture - Final Blood No Growth after 144 hours Assessment and Plan Plan: The patient was seen and examined. Agree with the above assessment and plan. The patient remains quite lethargic and debilitated. He moves all extremities but is weak. He was on BiPAP early this morning but is now weaned down to nasal cannula oxygen. He is hemodynamically stable. We will continue with blood pressure control as tolerated. He is currently getting nutrition via tube feeds. He will receive hemodialysis later today as directed by nephrology. He is currently on antibiotics secondary to Pseudomonas in his sputum. His white blood cell count is improving.His chest x-ray today appears relatively clear. We will continue with physical therapy as tolerated.
[2016-08-06] MEDS: IPRATROPIUM-ALBUTEROL 3 ML NEB INHALATION SCH ×4 (08:44→19:25)
[2016-08-06] MEDS: AMIODARONE 200 MG TAB PO SCH ×2 (08:51→22:21)
[2016-08-06] MEDS: PANTOPRAZOLE 40 MG/10 ML VIAL IVP SCH (08:51)
[2016-08-06] MEDS: DEXAMETHASONE SOD PHOSPHATE 4 MG/ML 1 ML VIAL IV SCH ×2 (08:51→22:21)
[2016-08-06] MEDS: ASPIRIN 81 MG CHEW PO SCH (08:51)
[2016-08-06] MEDS: CALCIUM ACETATE 667 MG CAP PO SCH ×3 (08:51→17:23)
[2016-08-06] MEDS: METOPROLOL TARTRATE 12.5 MG TAB PO SCH ×2 (08:51→22:22)
[2016-08-06] MEDS: LISINOPRIL 10 MG TAB PO SCH (08:51)
[2016-08-06] MEDS: HEPARIN SODIUM,PORCINE 5,000 UNIT/ML 1 ML VIAL SQ SCH ×2 (08:51→16:50)
[2016-08-06] MEDS: ATORVASTATIN 40 MG TAB PO SCH (08:51)
[2016-08-06] MEDS: VITAMIN A 10,000 UNIT CAPSULE PO SCH (08:51)
--- NOTE | 2016-08-06 09:04 | P.PN ---
Subjective Progress note dated 08/06/2016 This is a 80-year-old male who was extubated a couple days ago. I believe [id number].The patient has primarily been on BiPAP dependent since that time.Thepatient'rDqFWWqos[id number]%. HisIVis0.6mb73lSzbysgy.He is getting vital high protein at 30 with a goal of 30.StxciacilsgnnhlmiqiqshxaiujnywfxUhnje22inh3.7Loffluidwasremoved.Hischestx- raysimproved.Heisapparentlygoingtohavehemodialysisagaintoday.I' mnotsurewhattheplanisfor.Hedidnothavebloodgasestoday. HeremainsonZosynforthePseudomonasrecoveredhisbronchialwash.AgainasImentionhische stx - raysimproved.Wearegoingtotryhimonsomenasalprongstoday.Helookslikehemightbeableto tolerateit. Objective - Vital Signs Vital signs: Vital Signs Temp 98.3 F 08/06/16 08:00 Pulse 85 08/06/16 08:44 Resp 20 08/06/16 08:44 BP 130/75 08/05/16 13:00 Pulse Ox 100 08/06/16 08:00 Intake & Output 08/05/16 08/06/16 08/06/16 18:59 06:59 18:59 Intake Total 312.5 696.0 106 Output Total 2720 87 3 Balance -2407.5 609.0 103 Weight 87.5 kg 87.8 kg Intake: IV 120 216 26 0.9 120 180 20 Pressure Bag 36 6 Intake, IV Titration 182.5 50.0 20 Amount Piperacillin-Tazobactam 3 62.5 50.0 .375 gm In Dextrose/Water 1 50ml.bag @ 12.5 mls/hr IVPB Q12HR RINA Rx#: [id number] Sodium Chloride 0.9% 1, 120 20 000 ml @ 20 mls/hr IV . Q24H RINA Rx#:[id number] Tube Feeding 10 280 60 Other 150 Output: Chest Tube Drainage 25 Chest Tube Lateral Chest 25 Urine 95 87 3 Other 2600 Other: Voiding Method Indwelling Catheter Indwelling Catheter # Bowel Movements 1 ABP, PAP, CO, CI - Last Documented Arterial Blood Pressure 128/44 Pulmonary Artery Pressure 40/30 Cardiac Output 6.4 Cardiac Index 3.3 - Exam No acute distress currently. Patient currently on BiPAP at 12 and 6 and 35%. A bit more arousable today but not much. HEENT examination is grossly unremarkable. Difficult to evaluate because of the BiPAP device. Mixed membranes are moist. Neck supple. Full range of motion. No adenopathy. Cardio vascular examination reveals regular rhythm rate. S1-S2 normal. No distinct murmur noted. Lungs reveal few scattered rhonchi. Breath sounds are diminished. A few crackles noted as well. Breath sounds are generally diminished. Abdomen soft bowel sounds are heard. Extremities are intact. No obvious edema. Neurologic examination cannot be adequately performed. Skin without rash or lesion. - Labs CBC & Chem 7: 08/06/16 04:55 08/06/16 04:55 Labs: Abnormal Lab Results - Last 24 Hours (Table) 08/05/16 08/05/16 08/05/16 Range/Units 09:22 17:10 20:15 WBC (3.8-10.6) k/uL RBC (4.30-5.90) m/uL Hgb (13.0-17.5) gm/dL Hct (39.0-53.0) % RDW (11.5-15.5) % Neutrophils # (1.3-7.7) k/uL Lymphocytes # (1.0-4.8) k/uL ABG pH (7.35-7.45) ABG pO2 (83-108) mmHg ABG Total CO2 26 H (19-24) mmol/L ABG O2 Saturation (94-97) % BUN (9-20) mg/dL Creatinine (0.66-1.25) mg/dL Glucose (74-99) mg/dL POC Glucose (mg/dL) 109 H 120 H (75-99) mg/dL Phosphorus (2.5-4.5) mg/dL Magnesium (1.6-2.3) mg/dL Alkaline Phosphatase (38-126) U/L Total Protein (6.3-8.2) g/dL Albumin (3.5-5.0) g/dL 08/05/16 08/05/16 08/06/16 Range/Units 21:25 23:42 04:55 WBC 12.5 H (3.8-10.6) k/uL RBC 2.98 L (4.30-5.90) m/uL Hgb 9.0 L (13.0-17.5) gm/dL Hct 28.6 L (39.0-53.0) % RDW 18.9 H (11.5-15.5) % Neutrophils # 11.6 H (1.3-7.7) k/uL Lymphocytes # 0.3 L (1.0-4.8) k/uL ABG pH 7.46 H (7.35-7.45) ABG pO2 111 H (83-108) mmHg ABG Total CO2 27 H (19-24) mmol/L ABG O2 Saturation 98.0 H (94-97) % BUN (9-20) mg/dL Creatinine (0.66-1.25) mg/dL Glucose (74-99) mg/dL POC Glucose (mg/dL) 145 H (75-99) mg/dL Phosphorus (2.5-4.5) mg/dL Magnesium (1.6-2.3) mg/dL Alkaline Phosphatase (38-126) U/L Total Protein (6.3-8.2) g/dL Albumin (3.5-5.0) g/dL 08/06/16 08/06/16 08/06/16 Range/Units 04:55 04:55 08:04 WBC (3.8-10.6) k/uL RBC (4.30-5.90) m/uL Hgb (13.0-17.5) gm/dL Hct (39.0-53.0) % RDW (11.5-15.5) % Neutrophils # (1.3-7.7) k/uL Lymphocytes # (1.0-4.8) k/uL ABG pH (7.35-7.45) ABG pO2 (83-108) mmHg ABG Total CO2 (19-24) mmol/L ABG O2 Saturation (94-97) % BUN 64 H (9-20) mg/dL Creatinine 3.60 H (0.66-1.25) mg/dL Glucose 142 H (74-99) mg/dL POC Glucose (mg/dL) 142 H 141 H (75-99) mg/dL Phosphorus 5.2 H (2.5-4.5) mg/dL Magnesium 2.7 H (1.6-2.3) mg/dL Alkaline Phosphatase 155 H (38-126) U/L Total Protein 5.6 L (6.3-8.2) g/dL Albumin 2.8 L (3.5-5.0) g/dL Microbiology - Last 24 Hours (Table) 07/31/16 05:55 Blood Culture - Final Blood No Growth after 144 hours 07/31/16 05:55 Blood Culture - Final Blood No Growth after 144 hours Assessment and Plan (1) End-stage renal disease on hemodialysis Status: Acute (2) Hyperlipidemia Status: Acute (3) Hypertension Status: Acute (4) Non-STEMI (non-ST elevated myocardial infarction) Status: Acute (5) Status post aorto-coronary artery bypass graft Status: Acute (6) Diabetic foot ulcer associated with type 2 diabetes mellitus Status: Acute (7) End stage renal disease on dialysis due to type 2 diabetes mellitus Status: Acute Plan: Plan dated 08/06/2016 The patient will be trialed on some nasal prongs. We'll see if he can come off the BiPAP. Labs x-rays a medications are all reviewed. His chest chest x-ray today looks better than it did yesterday. The patient's currently going to get hemodialysis today. Received hemodialysis yesterday. Currently receiving vital high protein for nutrition at 30 with a goal of 30. He is getting appointment 9 IV at 20. Additional recommendations suggestions are forthcoming. More than 30 minutes was spent with this patient. Time with Patient: Greater than 30
--- NOTE | 2016-08-06 10:17 | P.PN ---
Subjective Date of service 08/05/2016 Progress note being dictated for . Interval history: This a 80-year-old gentleman status post CABG, pulmonary edema , end-stage renal disease on hemodialysis, and left mainstem bronchus blood clots leading to left lung collapse, status post bronchoscopy and multiple other medical issues. Maintained on Zosyn regarding bronc washings reporting Pseudomonas aeruginosa. Extubated yesterday afternoon, became tachypneic, desatted to 89%, ABGs: PH 7.46 PO2 111, pCO2 37. requiring more supplemental oxygen and currently on BiPAP. Chest x-ray reporting lower lobe atelectasis versus edema and possible associated effusions Somnolent appearing. Receiving hemodialysis again today as per nephrology, to remove 4 L. Currently sinus rhythm. Objective - Vital Signs Vital signs: Vital Signs Temp 98.4 F 08/05/16 16:00 Pulse 91 08/05/16 17:00 Resp 29 H 08/05/16 17:00 BP 130/75 08/05/16 13:00 Pulse Ox 97 08/05/16 17:00 Intake & Output 08/04/16 08/05/16 08/05/16 18:59 06:59 18:59 Intake Total 385.049 63 280.0 Output Total 162 100 120 Balance 223.049 -37 160.0 Weight 87.5 kg Intake: IV 276 63 120 0.9 240 60 120 Pressure Bag 36 3 Intake, IV Titration 9.049 150.0 Amount Piperacillin-Tazobactam 3 50.0 .375 gm In Dextrose/Water 1 50ml.bag @ 12.5 mls/hr IVPB Q12HR [facility] Rx#: [id number] Propofol 500 mg In Empty 9.049 Bag 1 bag @ Titrate IV . Q0M [facility] Rx#:[id number] Sodium Chloride 0.9% 1, 100 000 ml @ 20 mls/hr IV . Q24H [facility] Rx#:[id number] Tube Feeding 100 10 Output: Chest Tube Drainage 140 10 25 Chest Tube Lateral Chest 140 10 25 Urine 22 90 95 Other: Voiding Method Indwelling Catheter Indwelling Catheter Indwelling Catheter # Voids 1 # Bowel Movements 1 ABP, PAP, CO, CI - Last Documented Arterial Blood Pressure 155/47 Pulmonary Artery Pressure 40/30 Cardiac Output 6.4 Cardiac Index 3.3 - Exam PHYSICAL EXAM: VITAL SIGNS: As above GENERAL: [Sitting up in bed, somnolent, lethargic, wearing BiPAP] HEENT: [Pupils equal, sluggish, conjunctiva normal.] NECK: [Supple, no JVD] RESPIRATORY EFFORT:[Increased] LUNGS: bibasilar crackles, no wheezes] CARDIOVASCULAR[regular S1 and S2, no murmurs rubs or gallops, positive edema] GI: [Abdomen soft, nontender, positive bowel sounds.] NEURO: As mentioned above somnolent, wearing BiPAP, opens eyes to verbal stimuli awake, moves all 4 extremities, - Labs CBC & Chem 7: 08/06/16 04:55 08/06/16 04:55 Labs: Abnormal Lab Results - Last 24 Hours (Table) 08/04/16 08/04/16 08/05/16 Range/Units 20:33 23:44 04:55 WBC 15.0 H (3.8-10.6) k/uL RBC 2.98 L (4.30-5.90) m/uL Hgb 8.8 L (13.0-17.5) gm/dL Hct 28.3 L (39.0-53.0) % RDW 18.7 H (11.5-15.5) % Neutrophils # 13.8 H (1.3-7.7) k/uL Lymphocytes # 0.3 L (1.0-4.8) k/uL ABG Total CO2 (19-24) mmol/L BUN (9-20) mg/dL Creatinine (0.66-1.25) mg/dL Glucose (74-99) mg/dL POC Glucose (mg/dL) 105 H 121 H (75-99) mg/dL Calcium (8.4-10.2) mg/dL Phosphorus (2.5-4.5) mg/dL Magnesium (1.6-2.3) mg/dL Alkaline Phosphatase (38-126) U/L Total Protein (6.3-8.2) g/dL Albumin (3.5-5.0) g/dL 08/05/16 08/05/16 08/05/16 Range/Units 04:55 08:02 09:22 WBC (3.8-10.6) k/uL RBC (4.30-5.90) m/uL Hgb (13.0-17.5) gm/dL Hct (39.0-53.0) % RDW (11.5-15.5) % Neutrophils # (1.3-7.7) k/uL Lymphocytes # (1.0-4.8) k/uL ABG Total CO2 26 H (19-24) mmol/L BUN 56 H (9-20) mg/dL Creatinine 3.20 H (0.66-1.25) mg/dL Glucose 121 H (74-99) mg/dL POC Glucose (mg/dL) 107 H (75-99) mg/dL Calcium 8.3 L (8.4-10.2) mg/dL Phosphorus 4.9 H (2.5-4.5) mg/dL Magnesium 2.6 H (1.6-2.3) mg/dL Alkaline Phosphatase 191 H (38-126) U/L Total Protein 5.6 L (6.3-8.2) g/dL Albumin 2.9 L (3.5-5.0) g/dL 08/05/16 Range/Units 17:10 WBC (3.8-10.6) k/uL RBC (4.30-5.90) m/uL Hgb (13.0-17.5) gm/dL Hct (39.0-53.0) % RDW (11.5-15.5) % Neutrophils # (1.3-7.7) k/uL Lymphocytes # (1.0-4.8) k/uL ABG Total CO2 (19-24) mmol/L BUN (9-20) mg/dL Creatinine (0.66-1.25) mg/dL Glucose (74-99) mg/dL POC Glucose (mg/dL) 109 H (75-99) mg/dL Calcium (8.4-10.2) mg/dL Phosphorus (2.5-4.5) mg/dL Magnesium (1.6-2.3) mg/dL Alkaline Phosphatase (38-126) U/L Total Protein (6.3-8.2) g/dL Albumin (3.5-5.0) g/dL Microbiology - Last 24 Hours (Table) 07/31/16 05:55 Blood Culture - Preliminary Blood No Growth after 120 hours 07/31/16 05:55 Blood Culture - Preliminary Blood No Growth after 120 hours Assessment and Plan Plan: 1. Acute hypoxic respiratory failure status post CABG secondary to pulmonary edema, currently BiPAP dependent. 2. [CKD, end-stage on HD]. 3. [Acute non-STEMI with acute exacerbation Mild left ventricular dysfunction with systolic CHF dysfunction]. 4. [Mild aortic stenosis]. 5. [Hypertension]. 6. [Hyperlipidemia]. 7. [CAD status post CABG]. 8. Rheumatoid arthritis 9. Metabolic bone disease 10. Hyperphosphatemia secondary to end-stage renal disease 11. Anemia of chronic kidney disease 12. Hyponatremia, hypovolemic 13. Possible pneumonia, left lower lobe, status post bronchoscopy reporting pseudomonas aeruginosa. 14. Left mainstem bronchus blood clots leading to left lung collapse, status post bronchoscopy Plan: Continue with current medication regime , amiodarone, metoprolol, statin, ETELVINA inhibitor, monitoring and symptomatic treatment. Continues on nebulized bronchodilators, Decadron .As mentioned above patient remains somnolent, BiPAP dependent at this time. Follow closely with pulmonary, cardiology, cardiothoracic surgery. Prognosis guarded given multiple complex medical issues. Further recommendations to follow The impression and plan of care has been dictated as directed. : I performed a H&P examination of this patient and discussed the same with the dictator. I agree with the dictator's note. Any additional findings/opinions/ etc. will be noted.
[2016-08-06] MEDS: PIPERACILLIN-TAZOBACTAM 3.375 GM in DEXTROSE/WATER 1 50ML.BAG IVPB SCH ×2 (10:27→22:58)
[2016-08-06] MEDS: hydrALAZINE HCL 20 MG/ML 1 ML VIAL IVP PRN (10:27)
--- NOTE | 2016-08-06 10:52 | XR ---
EXAMINATION TYPE: XR chest 1V portable DATE OF EXAM: 08/06/2016 6:40 AM COMPARISON: Prior chest x-ray July HISTORY: Postop cardiac surgery TECHNIQUE: Single frontal view of the chest is obtained. FINDINGS: NG tube remains in place, there are overlying cardiac leads, right-sided PICC line is stab le. Heart is enlarged. Basilar increased density, prominence interstitium again noted. No evident pne umothorax. IMPRESSION: Correlate for volume overload, pulmonary venous hypertension and interstitial edema. The re may be basilar atelectasis versus edema and associated effusion, correlate to exclude pneumonia, f ollow-up recommended
[2016-08-06 12:37] LABS: Glucose,Whole Blood 141 mg/dL (75-99)
[2016-08-06] MEDS: FOLIC ACID 1 MG TAB PO SCH (12:55)
--- NOTE | 2016-08-06 16:33 | P.PN ---
Subjective Patient seen in follow-up for end-stage renal disease. He is maintained on hemodialysis on a Friday schedule. He was extubated August 04 and is currently receiving a breathing treatment. He's been undergoing dialysis almost on a daily basis and had 2.7 L ultrafiltration yesterday. He underwent 2 bronchoscopies this admission revealing left lung bleeding. Bronchial washings positive for Pseudomonas. According to the family, he's been more alert today compared to yesterday. Hemodynamically stable. Vital signs are stable. General: The patient appeared well nourished and normally developed. HEENT: Head exam is unremarkable. Neck is without jugular venous distension. LUNGS: Diffuse rhonchi. Breath sounds decreased. HEART: Rate and Rhythm are regular. First and second heart sounds normal. No murmurs, rubs or gallops. ABDOMEN: Abdominal exam reveals normal bowel sounds. Non-tender and non- distended. No evidence of peritonitis. EXTREMITITES: 1+ edema. Objective - Vital Signs Vital signs: Vital Signs Temp 97.8 F 08/06/16 16:00 Pulse 102 H 08/06/16 16:00 Resp 22 08/06/16 16:00 BP 130/75 08/05/16 13:00 Pulse Ox 93 L 08/06/16 16:00 Intake & Output 08/05/16 08/06/16 08/06/16 18:59 06:59 18:59 Intake Total 312.5 696.0 680 Output Total 2720 87 128 Balance -2407.5 609.0 552 Weight 87.5 kg 87.8 kg 87.8 kg Intake: IV 120 216 50 0.9 120 180 20 Pressure Bag 36 30 Intake, IV Titration 182.5 50.0 230 Amount Piperacillin-Tazobactam 3 62.5 50.0 50 .375 gm In Dextrose/Water 1 50ml.bag @ 12.5 mls/hr IVPB Q12HR [facility] Rx#: [id number] Sodium Chloride 0.9% 1, 120 180 000 ml @ 20 mls/hr IV . Q24H [facility] Rx#:[id number] Tube Feeding 10 280 340 Other 150 60 Output: Chest Tube Drainage 25 Chest Tube Lateral Chest 25 Urine 95 87 128 Other 2600 Other: Voiding Method Indwelling Catheter Indwelling Catheter Indwelling Catheter # Bowel Movements 1 2 ABP, PAP, CO, CI - Last Documented Arterial Blood Pressure 130/49 Pulmonary Artery Pressure 40/30 Cardiac Output 6.4 Cardiac Index 3.3 - Labs CBC & Chem 7: 08/06/16 04:55 08/06/16 04:55 Labs: Abnormal Lab Results - Last 24 Hours (Table) 08/05/16 08/05/16 08/05/16 Range/Units 17:10 20:15 21:25 WBC (3.8-10.6) k/uL RBC (4.30-5.90) m/uL Hgb (13.0-17.5) gm/dL Hct (39.0-53.0) % RDW (11.5-15.5) % Neutrophils # (1.3-7.7) k/uL Lymphocytes # (1.0-4.8) k/uL ABG pH 7.46 H (7.35-7.45) ABG pO2 111 H (83-108) mmHg ABG Total CO2 27 H (19-24) mmol/L ABG O2 Saturation 98.0 H (94-97) % BUN (9-20) mg/dL Creatinine (0.66-1.25) mg/dL Glucose (74-99) mg/dL POC Glucose (mg/dL) 109 H 120 H (75-99) mg/dL Phosphorus (2.5-4.5) mg/dL Magnesium (1.6-2.3) mg/dL Alkaline Phosphatase (38-126) U/L Total Protein (6.3-8.2) g/dL Albumin (3.5-5.0) g/dL 08/05/16 08/06/16 08/06/16 Range/Units 23:42 04:55 04:55 WBC 12.5 H (3.8-10.6) k/uL RBC 2.98 L (4.30-5.90) m/uL Hgb 9.0 L (13.0-17.5) gm/dL Hct 28.6 L (39.0-53.0) % RDW 18.9 H (11.5-15.5) % Neutrophils # 11.6 H (1.3-7.7) k/uL Lymphocytes # 0.3 L (1.0-4.8) k/uL ABG pH (7.35-7.45) ABG pO2 (83-108) mmHg ABG Total CO2 (19-24) mmol/L ABG O2 Saturation (94-97) % BUN 64 H (9-20) mg/dL Creatinine 3.60 H (0.66-1.25) mg/dL Glucose 142 H (74-99) mg/dL POC Glucose (mg/dL) 145 H (75-99) mg/dL Phosphorus 5.2 H (2.5-4.5) mg/dL Magnesium 2.7 H (1.6-2.3) mg/dL Alkaline Phosphatase 155 H (38-126) U/L Total Protein 5.6 L (6.3-8.2) g/dL Albumin 2.8 L (3.5-5.0) g/dL 08/06/16 08/06/16 08/06/16 Range/Units 04:55 08:04 12:12 WBC (3.8-10.6) k/uL RBC (4.30-5.90) m/uL Hgb (13.0-17.5) gm/dL Hct (39.0-53.0) % RDW (11.5-15.5) % Neutrophils # (1.3-7.7) k/uL Lymphocytes # (1.0-4.8) k/uL ABG pH (7.35-7.45) ABG pO2 (83-108) mmHg ABG Total CO2 (19-24) mmol/L ABG O2 Saturation (94-97) % BUN (9-20) mg/dL Creatinine (0.66-1.25) mg/dL Glucose (74-99) mg/dL POC Glucose (mg/dL) 142 H 141 H 141 H (75-99) mg/dL Phosphorus (2.5-4.5) mg/dL Magnesium (1.6-2.3) mg/dL Alkaline Phosphatase (38-126) U/L Total Protein (6.3-8.2) g/dL Albumin (3.5-5.0) g/dL Microbiology - Last 24 Hours (Table) 07/31/16 05:55 Blood Culture - Final Blood No Growth after 144 hours 07/31/16 05:55 Blood Culture - Final Blood No Growth after 144 hours Assessment and Plan Plan: Assessment: #1. End-stage renal disease maintained on hemodialysis on a Friday schedule. #2. 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 #3. Left lung blood clots status post bronchoscopy 2. #4. Anemia. Hemoglobin 9.0 today. Plan: Hemodialysis today with goal 2-3 L ultrafiltration as blood pressure tolerates. Will plan on dialyzing him again tomorrow for gradual ultrafiltration. Maintain Aranesp. Continue antibiotics.
[2016-08-06 16:45] LABS: Glucose,Whole Blood 152 mg/dL (75-99)
[2016-08-06] MEDS: SODIUM CHLORIDE 0.9% 1,000 ML IV SCH (17:29)
[2016-08-06 20:20] LABS: Glucose,Whole Blood 121 mg/dL (75-99)
--- NOTE | 2016-08-06 20:26 | P.PN ---
Subjective Principal diagnosis: Status post CABG This is a 80-year-old gentleman with history of chronic renal failure on dialysis was admitted to [facility] with a non-ST PR. Patient subsequently had a cardiac catheterization and was found to have significant 2 vessel disease. He underwent hiatal coronary bypass surgery. Postoperatively patient had respiratory failure and also evidence of intrabronchial bleeding. Patient is required bronchoscopy. Patient's respiratory status gradually improved. Patient is currently extubated. He seemed to be alert and arousable. Patient is also getting dialysis. Patient will have another dialysis today. Hemodynamically more stable. We will continue current medical therapy Objective - Vital Signs Vital signs: Vital Signs Temp 97.8 F 08/06/16 16:00 Pulse 100 08/06/16 20:00 Resp 16 08/06/16 20:00 BP 130/75 08/05/16 13:00 Pulse Ox 95 08/06/16 20:00 Intake & Output 08/06/16 08/06/16 08/07/16 06:59 18:59 06:59 Intake Total 696.0 846 63 Output Total 87 128 Balance 609.0 718 63 Weight 87.8 kg 87.8 kg Intake: IV 216 56 3 0.9 180 20 Pressure Bag 36 36 3 Intake, IV Titration 50.0 270 20 Amount Piperacillin-Tazobactam 3 50.0 50 .375 gm In Dextrose/Water 1 50ml.bag @ 12.5 mls/hr IVPB Q12HR [facility] Rx#: [id number] Sodium Chloride 0.9% 1, 220 20 000 ml @ 20 mls/hr IV . Q24H [facility] Rx#:[id number] Tube Feeding 280 460 40 Other 150 60 Output: Urine 87 128 Other: Voiding Method Indwelling Catheter Indwelling Catheter # Bowel Movements 2 ABP, PAP, CO, CI - Last Documented Arterial Blood Pressure 160/66 Pulmonary Artery Pressure 40/30 Cardiac Output 6.4 Cardiac Index 3.3 - Exam GENERAL EXAM: Patient is alert and seems to be following commands HEENT: Normocephalic. Normal reaction of pupils, equal size, normal range of extraocular motion. No erythema or exudates in the throat. NECK: No masses, no nuchal rigidity. CHEST: No chest wall deformity. LUNGS: Diminished breath sounds at bases HEART: S1 and S2 normal with no audible mumurs or gallops. ABDOMEN: No hepatosplenomegaly, normal bowel sounds, no guarding or rigidity. SKIN: No rashes CENTRAL NERVOUS SYSTEM: No focal deficits. EXTREMITIES: No cyanosis, clubbing or edema. - Labs CBC & Chem 7: 08/06/16 04:55 08/06/16 04:55 Labs: Abnormal Lab Results - Last 24 Hours (Table) 08/05/16 08/05/16 08/06/16 Range/Units 21:25 23:42 04:55 WBC 12.5 H (3.8-10.6) k/uL RBC 2.98 L (4.30-5.90) m/uL Hgb 9.0 L (13.0-17.5) gm/dL Hct 28.6 L (39.0-53.0) % RDW 18.9 H (11.5-15.5) % Neutrophils # 11.6 H (1.3-7.7) k/uL Lymphocytes # 0.3 L (1.0-4.8) k/uL ABG pH 7.46 H (7.35-7.45) ABG pO2 111 H (83-108) mmHg ABG Total CO2 27 H (19-24) mmol/L ABG O2 Saturation 98.0 H (94-97) % BUN (9-20) mg/dL Creatinine (0.66-1.25) mg/dL Glucose (74-99) mg/dL POC Glucose (mg/dL) 145 H (75-99) mg/dL Phosphorus (2.5-4.5) mg/dL Magnesium (1.6-2.3) mg/dL Alkaline Phosphatase (38-126) U/L Total Protein (6.3-8.2) g/dL Albumin (3.5-5.0) g/dL 08/06/16 08/06/16 08/06/16 Range/Units 04:55 04:55 08:04 WBC (3.8-10.6) k/uL RBC (4.30-5.90) m/uL Hgb (13.0-17.5) gm/dL Hct (39.0-53.0) % RDW (11.5-15.5) % Neutrophils # (1.3-7.7) k/uL Lymphocytes # (1.0-4.8) k/uL ABG pH (7.35-7.45) ABG pO2 (83-108) mmHg ABG Total CO2 (19-24) mmol/L ABG O2 Saturation (94-97) % BUN 64 H (9-20) mg/dL Creatinine 3.60 H (0.66-1.25) mg/dL Glucose 142 H (74-99) mg/dL POC Glucose (mg/dL) 142 H 141 H (75-99) mg/dL Phosphorus 5.2 H (2.5-4.5) mg/dL Magnesium 2.7 H (1.6-2.3) mg/dL Alkaline Phosphatase 155 H (38-126) U/L Total Protein 5.6 L (6.3-8.2) g/dL Albumin 2.8 L (3.5-5.0) g/dL 08/06/16 08/06/16 08/06/16 Range/Units 12:12 16:25 20:19 WBC (3.8-10.6) k/uL RBC (4.30-5.90) m/uL Hgb (13.0-17.5) gm/dL Hct (39.0-53.0) % RDW (11.5-15.5) % Neutrophils # (1.3-7.7) k/uL Lymphocytes # (1.0-4.8) k/uL ABG pH (7.35-7.45) ABG pO2 (83-108) mmHg ABG Total CO2 (19-24) mmol/L ABG O2 Saturation (94-97) % BUN (9-20) mg/dL Creatinine (0.66-1.25) mg/dL Glucose (74-99) mg/dL POC Glucose (mg/dL) 141 H 152 H 121 H (75-99) mg/dL Phosphorus (2.5-4.5) mg/dL Magnesium (1.6-2.3) mg/dL Alkaline Phosphatase (38-126) U/L Total Protein (6.3-8.2) g/dL Albumin (3.5-5.0) g/dL Microbiology - Last 24 Hours (Table) 07/31/16 05:55 Blood Culture - Final Blood No Growth after 144 hours 07/31/16 05:55 Blood Culture - Final Blood No Growth after 144 hours Assessment and Plan (1) Status post aorto-coronary artery bypass graft Status: Acute (2) End-stage renal disease on hemodialysis Status: Acute (3) Hyperlipidemia Status: Acute (4) Hypertension Status: Acute (5) Non-STEMI (non-ST elevated myocardial infarction) Status: Acute Plan: Patient is more alert and more hemodynamically stable. Overall his clinical status is improved. He is going to get dialysis today. Rest of the medication be continued. We will follow,
--- NOTE | 2016-08-06 20:57 | PN ---
DATE OF SERVICE: 08/06/2016 This 80-year-old gentleman who was admitted after CAD, CABG, also had acute respiratory failure. The patient is currently extubated, slightly drowsy. being planned today. Seen and evaluated the patient along with the nurse practitioner. Please refer to the nurse practitioner's notes and impressions documented as a scribe for further information. Further recommendations to follow. MTDD
[2016-08-06] MEDS: SENNOSIDES-DOCUSATE SODIUM 1 EACH TAB PO SCH (22:23)
[2016-08-07 00:15] LABS: Glucose,Whole Blood 148 mg/dL (75-99)
[2016-08-07] MEDS: HEPARIN SODIUM,PORCINE 5,000 UNIT/ML 1 ML VIAL SQ SCH ×4 (02:42→23:14)
[2016-08-07] MEDS: INSULIN LISPRO (humaLOG) 300 UNIT/3 ML VIAL SQ SCH ×6 (02:42→22:26)
[2016-08-07 04:05] LABS: Glucose,Whole Blood 156 mg/dL (75-99)
[2016-08-07 05:26] LABS: Anisocytosis Slight; Basophils % (A) 0 %; CH 30.2; CHCM 32.7; Eosinophils % (A) 0 %; HGB 9.6 gm/dL (13.0-17.5); Hypochromasia Slight; Luc # (Auto) 0.16; Luc % (Auto) 1; Lymphocytes # (A) 0.3 k/uL (1.0-4.8); Lymphocytes % (A) 2 %; MCH 29.9 pg (25.0-35.0); MCV 93.4 fL (80.0-100.0); Macrocytosis Slight; Monocytes # (A) 0.5 k/uL (0-1.0); Monocytes % (A) 4 %; Neutrophils # (A) 11.8 k/uL (1.3-7.7); Neutrophils % (A) 92 %; Poikilocytosis Slight; RBC 3.22 m/uL (4.30-5.90); RDW 19.1 % (11.5-15.5); WBC 12.8 k/uL (3.8-10.6); WBC (Perox) 13.25
[2016-08-07 06:07] LABS: Calcium 8.8 mg/dL (8.4-10.2); Magnesium 2.6 mg/dL (1.6-2.3); Phosphorous 3.5 mg/dL (2.5-4.5); Potassium 3.8 mmol/L (3.5-5.1); Total Bilirubin 1.2 mg/dL (0.2-1.3); Total Protein 6.3 g/dL (6.3-8.2)
[2016-08-07 08:05] LABS: Glucose,Whole Blood 138 mg/dL (75-99)
[2016-08-07] MEDS: IPRATROPIUM-ALBUTEROL 3 ML NEB INHALATION SCH ×5 (08:22→19:56)
[2016-08-07] MEDS: CALCIUM ACETATE 667 MG CAP PO SCH ×3 (08:34→21:40)
[2016-08-07] MEDS: ATORVASTATIN 40 MG TAB PO SCH (08:34)
[2016-08-07] MEDS: AMIODARONE 200 MG TAB PO SCH ×2 (08:35→21:41)
[2016-08-07] MEDS: PANTOPRAZOLE 40 MG/10 ML VIAL IVP SCH (08:35)
[2016-08-07] MEDS: ASPIRIN 81 MG CHEW PO SCH (08:35)
[2016-08-07] MEDS: DEXAMETHASONE SOD PHOSPHATE 4 MG/ML 1 ML VIAL IV SCH ×2 (08:35→21:41)
[2016-08-07] MEDS: LISINOPRIL 10 MG TAB PO SCH (08:35)
[2016-08-07] MEDS: METOPROLOL TARTRATE 25 MG TAB PO SCH ×2 (08:36→21:41)
--- NOTE | 2016-08-07 09:25 | P.PN ---
Subjective Date of service 08/06/2016 Progress note being dictated for . Interval history: This a 80-year-old gentleman status post CABG, pulmonary edema , end-stage renal disease on hemodialysis, and left mainstem bronchus blood clots leading to left lung collapse, status post bronchoscopy and multiple other medical issues. Continues on Zosyn related to Pseudomonas aeruginosa in bronc washings.Currently off BiPAP, sleepy but more alert today, weak. Chest x -ray improving, reporting moderate volume overload, pulmonary venous hypertension, interstitial edema, bibasilar atelectasis versus edema and associated effusion, possible pneumonia.tolerating tube feeds of Vital HP at goal of 30, tolerating well with minimal to no residuals .Family in at bedside. Scheduled for hemodialysis again today. Patient more alert but drowsy , review of systems cannot be completed. Active Medications Hydrocodone Bitart/Acetaminophen ([place] 5-325) 2 each PO Q4HR PRN PRN Reason: Severe Pain Last Admin: 08/05/16 21:46 Dose: 2 each Hydrocodone Bitart/Acetaminophen ([place] 5-325) 1 each PO Q4HR PRN PRN Reason: Moderate Pain Albuterol/Ipratropium (Duoneb 0.5 Mg-3 Mg/3 Ml Soln) 3 ml INHALATION RT-Q2H PRN PRN Reason: Shortness Of Breath Or Wheezing Albuterol/Ipratropium (Duoneb 0.5 Mg-3 Mg/3 Ml Soln) 3 ml INHALATION RT-QID [facility] Last Admin: 08/07/16 08:22 Dose: 3 ml Amiodarone HCl (Cordarone) 200 mg PO BID [facility] Last Admin: 08/07/16 08:35 Dose: 200 mg Aspirin (Aspirin) 81 mg PO DAILY [facility] Last Admin: 08/07/16 08:35 Dose: 81 mg Atorvastatin Calcium (Lipitor) 40 mg PO DAILY [facility] Last Admin: 08/07/16 08:34 Dose: 40 mg Benzocaine/Menthol (Cepacol Lozenge) 1 each MUCOUS MEM Q2H PRN PRN Reason: Sore Throat Bisacodyl (Dulcolax) 10 mg RECTAL DAILY PRN PRN Reason: Constipation Calcium Acetate (Phoslo) 667 mg PO TID-W/MEALS [facility] Last Admin: 08/07/16 08:34 Dose: 667 mg Darbepoetin Kevin (Aranesp) 40 mcg SQ Q7D [facility] Last Admin: 08/01/16 15:49 Dose: 40 mcg Dexamethasone Sodium Phosphate (Decadron) 4 mg IV Q12HR [facility] Last Admin: 08/07/16 08:35 Dose: 4 mg Folic Acid (Folic Acid) 1 mg PO DAILY@1200 [facility] Last Admin: 08/06/16 12:55 Dose: 1 mg Heparin Sodium (Porcine) (Heparin) 5,000 unit SQ Q8HR [facility] Last Admin: 08/07/16 08:34 Dose: 5,000 unit Hydralazine HCl (Apresoline) 10 mg IVP Q6HR PRN PRN Reason: Blood Pressure - High Last Admin: 08/06/16 10:27 Dose: 10 mg Sodium Chloride (Saline 0.9%) 1,000 mls @ 20 mls/hr IV .Q24H [facility] Last Admin: 08/06/16 17:29 Dose: 20 mls/hr Piperacillin/Tazobactam/ (Dextrose 3.375 gm/ IV Solution) 50 mls @ 12.5 mls/hr IVPB Q12HR [facility] Last Admin: 08/06/16 22:58 Dose: 12.5 mls/hr Insulin Human Lispro (Humalog) 0 unit SQ Q4HR [facility] PRN Reason: Protocol Last Admin: 08/07/16 08:34 Dose: 1 unit Lisinopril (Zestril) 10 mg PO DAILY [facility] Last Admin: 08/07/16 08:35 Dose: 10 mg Magnesium Hydroxide (Milk Of Magnesia) 2,400 mg PO BID PRN PRN Reason: Constipation Metoclopramide HCl (Reglan) 10 mg IVP Q4H PRN PRN Reason: Nausea And Vomiting Metoprolol Tartrate (Lopressor) 25 mg PO BID [facility] Last Admin: 08/07/16 08:36 Dose: 25 mg Miscellaneous Information (Magnesium Per Protocol) 1 each MISCELLANE DAILY PRN ; Protocol PRN Reason: Per Protocol Miscellaneous Information (Phosphorus Per Protocol) 1 each MISCELLANE DAILY PRN ; Protocol PRN Reason: Per Protocol Miscellaneous Information (Potassium Per Protocol) 1 each MISCELLANE DAILY PRN ; Protocol PRN Reason: Per Protocol Ondansetron HCl (Zofran) 4 mg IVP Q6HR PRN PRN Reason: Nausea And Vomiting Pantoprazole Sodium (Protonix) 40 mg IVP DAILY [facility] Last Admin: 08/07/16 08:35 Dose: 40 mg Senna/Docusate Sodium (Senokot-S) 2 each PO HS [facility] Last Admin: 08/06/16 22:23 Dose: Not Given Sodium Chloride (Saline Flush) 10 ml IV BID [facility] Last Admin: 08/06/16 22:23 Dose: 10 ml Sodium Chloride (Saline Flush) 20 ml IV Q4HR PRN PRN Reason: PICC Line Sodium Chloride (Saline Flush) 10 ml IV WEEKLY [facility] Sodium Chloride (Saline Flush) 10 ml IV Q4HR PRN PRN Reason: PICC Line Objective - Vital Signs Vital signs: Vital Signs Temp 97.8 F 08/06/16 16:00 Pulse 101 H 08/06/16 17:00 Resp 26 H 08/06/16 17:00 BP 130/75 08/05/16 13:00 Pulse Ox 94 L 08/06/16 17:00 Intake & Output 08/05/16 08/06/16 08/06/16 18:59 06:59 18:59 Intake Total 312.5 696.0 783 Output Total 2720 87 128 Balance -2407.5 609.0 655 Weight 87.5 kg 87.8 kg 87.8 kg Intake: IV 120 216 53 0.9 120 180 20 Pressure Bag 36 33 Intake, IV Titration 182.5 50.0 250 Amount Piperacillin-Tazobactam 3 62.5 50.0 50 .375 gm In Dextrose/Water 1 50ml.bag @ 12.5 mls/hr IVPB Q12HR [facility] Rx#: [id number] Sodium Chloride 0.9% 1, 120 200 000 ml @ 20 mls/hr IV . Q24H [facility] Rx#:[id number] Tube Feeding 10 280 420 Other 150 60 Output: Chest Tube Drainage 25 Chest Tube Lateral Chest 25 Urine 95 87 128 Other 2600 Other: Voiding Method Indwelling Catheter Indwelling Catheter Indwelling Catheter # Bowel Movements 1 2 ABP, PAP, CO, CI - Last Documented Arterial Blood Pressure 142/47 Pulmonary Artery Pressure 40/30 Cardiac Output 6.4 Cardiac Index 3.3 - Exam PHYSICAL EXAM: VITAL SIGNS: As above GENERAL: [Sitting up in bed, weak, sleepy but arousable, interacting with family at times at bedside] HEENT: [Pupils equal, sluggish, conjunctiva normal.] NECK: [Supple, no JVD] RESPIRATORY EFFORT:[Increased] LUNGS: Shallow breaths, Fine bibasilar crackles, scattered rhonchi throughout, no wheezes] CARDIOVASCULAR[regular S1 and S2, no murmurs rubs or gallops, positive edema] GI: [Abdomen soft, nontender, positive bowel sounds.] NEURO: As mentioned above drowsy, weak, but more alert, responding to family at bedside, moves all 4 extremities, - Labs CBC & Chem 7: 08/07/16 05:10 08/07/16 05:10 Labs: Abnormal Lab Results - Last 24 Hours (Table) 08/05/16 08/05/16 08/05/16 Range/Units 20:15 21:25 23:42 WBC (3.8-10.6) k/uL RBC (4.30-5.90) m/uL Hgb (13.0-17.5) gm/dL Hct (39.0-53.0) % RDW (11.5-15.5) % Neutrophils # (1.3-7.7) k/uL Lymphocytes # (1.0-4.8) k/uL ABG pH 7.46 H (7.35-7.45) ABG pO2 111 H (83-108) mmHg ABG Total CO2 27 H (19-24) mmol/L ABG O2 Saturation 98.0 H (94-97) % BUN (9-20) mg/dL Creatinine (0.66-1.25) mg/dL Glucose (74-99) mg/dL POC Glucose (mg/dL) 120 H 145 H (75-99) mg/dL Phosphorus (2.5-4.5) mg/dL Magnesium (1.6-2.3) mg/dL Alkaline Phosphatase (38-126) U/L Total Protein (6.3-8.2) g/dL Albumin (3.5-5.0) g/dL 08/06/16 08/06/16 08/06/16 Range/Units 04:55 04:55 04:55 WBC 12.5 H (3.8-10.6) k/uL RBC 2.98 L (4.30-5.90) m/uL Hgb 9.0 L (13.0-17.5) gm/dL Hct 28.6 L (39.0-53.0) % RDW 18.9 H (11.5-15.5) % Neutrophils # 11.6 H (1.3-7.7) k/uL Lymphocytes # 0.3 L (1.0-4.8) k/uL ABG pH (7.35-7.45) ABG pO2 (83-108) mmHg ABG Total CO2 (19-24) mmol/L ABG O2 Saturation (94-97) % BUN 64 H (9-20) mg/dL Creatinine 3.60 H (0.66-1.25) mg/dL Glucose 142 H (74-99) mg/dL POC Glucose (mg/dL) 142 H (75-99) mg/dL Phosphorus 5.2 H (2.5-4.5) mg/dL Magnesium 2.7 H (1.6-2.3) mg/dL Alkaline Phosphatase 155 H (38-126) U/L Total Protein 5.6 L (6.3-8.2) g/dL Albumin 2.8 L (3.5-5.0) g/dL 08/06/16 08/06/16 08/06/16 Range/Units 08:04 12:12 16:25 WBC (3.8-10.6) k/uL RBC (4.30-5.90) m/uL Hgb (13.0-17.5) gm/dL Hct (39.0-53.0) % RDW (11.5-15.5) % Neutrophils # (1.3-7.7) k/uL Lymphocytes # (1.0-4.8) k/uL ABG pH (7.35-7.45) ABG pO2 (83-108) mmHg ABG Total CO2 (19-24) mmol/L ABG O2 Saturation (94-97) % BUN (9-20) mg/dL Creatinine (0.66-1.25) mg/dL Glucose (74-99) mg/dL POC Glucose (mg/dL) 141 H 141 H 152 H (75-99) mg/dL Phosphorus (2.5-4.5) mg/dL Magnesium (1.6-2.3) mg/dL Alkaline Phosphatase (38-126) U/L Total Protein (6.3-8.2) g/dL Albumin (3.5-5.0) g/dL Microbiology - Last 24 Hours (Table) 07/31/16 05:55 Blood Culture - Final Blood No Growth after 144 hours 07/31/16 05:55 Blood Culture - Final Blood No Growth after 144 hours Assessment and Plan Plan: 1. Acute hypoxic respiratory failure status post CABG secondary to pulmonary edema, currently BiPAP dependent. 2. [CKD, end-stage on HD]. 3. [Acute non-STEMI with acute exacerbation Mild left ventricular dysfunction with systolic CHF dysfunction]. 4. [Mild aortic stenosis]. 5. [Hypertension]. 6. [Hyperlipidemia]. 7. [CAD status post CABG]. 8. Rheumatoid arthritis 9. Metabolic bone disease 10. Hyperphosphatemia secondary to end-stage renal disease 11. Anemia of chronic kidney disease 12. Hyponatremia, hypovolemic 13. Possible pneumonia, left lower lobe, status post bronchoscopy reporting pseudomonas aeruginosa. 14. Left mainstem bronchus blood clots leading to left lung collapse, status post bronchoscopy 15. Hypoalbuminemia Plan: Continue with current medication regime , amiodarone, metoprolol, statin, ETELVINA inhibitor, monitoring and symptomatic treatment. Aggressive pulmonary toileting. Continues on nebulized bronchodilators, steroids .initiate diet when patient becomes more alert .PT/OT.Prognosis guarded given multiple complex medical issues. Further recommendations to follow The impression and plan of care has been dictated as directed. : I performed a H&P examination of this patient and discussed the same with the dictator. I agree with the dictator's note. Any additional findings/opinions/ etc. will be noted.
--- NOTE | 2016-08-07 09:47 | P.PN ---
Subjective Progress note dated 08/06/2016 This is a 80-year-old male who was extubated a couple days ago. I believe Ugtkyjcyypcfbojo8WV.The patient has primarily been on BiPAP dependent since that time.Thepatient'rMyKOUzrx[id number]%. HisIVis0.3xl01xImuuswx.He is getting vital high protein at 30 with a goal of 30.OxxgsfawicealcsdtxvrpvwjetgxapxeZlbxs02vpk8.7Loffluidwasremoved.Hischestx- raysimproved.Heisapparentlygoingtohavehemodialysisagaintoday.I' mnotsurewhattheplanisfor.Hedidnothavebloodgasestoday. HeremainsonZosynforthePseudomonasrecoveredhisbronchialwash.AgainasImentionhische stx - raysimproved.Wearegoingtotryhimonsomenasalprongstoday.Helookslikehemightbeableto tolerateit. Progress note dated 08/07/2016 This is a 80-year-old male who was extubated on Friday evening. The patient is doing relatively well although for the first couple of days post extubation, he was BiPAP dependent. Yesterday we were able to transition him to nasal cannula. He is doing well. Did not need BiPAP all of last night. He is much more awake and alert. He is scheduled for hemodialysis. He's had hemodialysis last 2 days. Again he is much more awake and alert. Currently he is on O2 at 2 L. Not requiring BiPAP. He is getting appointment 9 IV at 20 mL an hour he is going to get hemodialysis today. Other than that things are going reasonably well but I think this patient should stay in the ICU for at least another day or so. Objective - Vital Signs Vital signs: Vital Signs Temp 97.9 F 08/07/16 04:00 Pulse 83 08/07/16 08:37 Resp 24 08/07/16 07:00 BP 130/75 08/05/16 13:00 Pulse Ox 73 L 08/07/16 07:00 Intake & Output 08/06/16 08/07/16 08/07/16 18:59 06:59 18:59 Intake Total 846 766 73 Output Total 128 60 7 Balance 718 706 66 Weight 87.8 kg Intake: IV 56 36 3 0.9 20 Pressure Bag 36 36 3 Intake, IV Titration 270 290 20 Amount Piperacillin-Tazobactam 3 50 50 .375 gm In Dextrose/Water 1 50ml.bag @ 12.5 mls/hr IVPB Q12HR [facility] Rx#: [id number] Sodium Chloride 0.9% 1, 220 240 20 000 ml @ 20 mls/hr IV . Q24H [facility] Rx#:[id number] Tube Feeding 460 440 50 Other 60 Output: Urine 128 60 7 Other: Voiding Method Indwelling Catheter Indwelling Catheter # Bowel Movements 2 1 ABP, PAP, CO, CI - Last Documented Arterial Blood Pressure 126/48 Pulmonary Artery Pressure 40/30 Cardiac Output 6.4 Cardiac Index 3.3 - Exam No acute distress currently. The patient is on nasal O2. He is much more awake today. HEENT examination is grossly unremarkable. Difficult to evaluate because of the BiPAP device. Mixed membranes are moist. Neck supple. Full range of motion. No adenopathy. Cardio vascular examination reveals regular rhythm rate. S1-S2 normal. No distinct murmur noted. Lungs reveal few scattered rhonchi. Breath sounds are diminished. A few crackles noted as well. Breath sounds are generally diminished. Abdomen soft bowel sounds are heard. Extremities are intact. No obvious edema. Neurologic examination cannot be adequately performed. Skin without rash or lesion. - Labs CBC & Chem 7: 08/07/16 05:10 08/07/16 05:10 Labs: Abnormal Lab Results - Last 24 Hours (Table) 08/06/16 08/06/16 08/06/16 Range/Units 12:12 16:25 20:19 WBC (3.8-10.6) k/uL RBC (4.30-5.90) m/uL Hgb (13.0-17.5) gm/dL Hct (39.0-53.0) % RDW (11.5-15.5) % Neutrophils # (1.3-7.7) k/uL Lymphocytes # (1.0-4.8) k/uL BUN (9-20) mg/dL Creatinine (0.66-1.25) mg/dL Glucose (74-99) mg/dL POC Glucose (mg/dL) 141 H 152 H 121 H (75-99) mg/dL Magnesium (1.6-2.3) mg/dL Alkaline Phosphatase (38-126) U/L Albumin (3.5-5.0) g/dL 08/07/16 08/07/16 08/07/16 Range/Units 00:13 04:03 05:10 WBC 12.8 H (3.8-10.6) k/uL RBC 3.22 L (4.30-5.90) m/uL Hgb 9.6 L (13.0-17.5) gm/dL Hct 30.0 L (39.0-53.0) % RDW 19.1 H (11.5-15.5) % Neutrophils # 11.8 H (1.3-7.7) k/uL Lymphocytes # 0.3 L (1.0-4.8) k/uL BUN (9-20) mg/dL Creatinine (0.66-1.25) mg/dL Glucose (74-99) mg/dL POC Glucose (mg/dL) 148 H 156 H (75-99) mg/dL Magnesium (1.6-2.3) mg/dL Alkaline Phosphatase (38-126) U/L Albumin (3.5-5.0) g/dL 08/07/16 08/07/16 Range/Units 05:10 07:46 WBC (3.8-10.6) k/uL RBC (4.30-5.90) m/uL Hgb (13.0-17.5) gm/dL Hct (39.0-53.0) % RDW (11.5-15.5) % Neutrophils # (1.3-7.7) k/uL Lymphocytes # (1.0-4.8) k/uL BUN 59 H (9-20) mg/dL Creatinine 3.17 H (0.66-1.25) mg/dL Glucose 148 H (74-99) mg/dL POC Glucose (mg/dL) 138 H (75-99) mg/dL Magnesium 2.6 H (1.6-2.3) mg/dL Alkaline Phosphatase 205 H (38-126) U/L Albumin 3.3 L (3.5-5.0) g/dL Microbiology - Last 24 Hours (Table) 07/31/16 05:55 Blood Culture - Final Blood No Growth after 144 hours 07/31/16 05:55 Blood Culture - Final Blood No Growth after 144 hours Assessment and Plan (1) End-stage renal disease on hemodialysis Status: Acute (2) Hyperlipidemia Status: Acute (3) Hypertension Status: Acute (4) Non-STEMI (non-ST elevated myocardial infarction) Status: Acute (5) Status post aorto-coronary artery bypass graft Status: Acute (6) Diabetic foot ulcer associated with type 2 diabetes mellitus Status: Acute (7) End stage renal disease on dialysis due to type 2 diabetes mellitus Status: Acute Plan: Plan dated 08/06/2016 The patient will be trialed on some nasal prongs. We'll see if he can come off the BiPAP. Labs x-rays a medications are all reviewed. His chest chest x-ray today looks better than it did yesterday. The patient's currently going to get hemodialysis today. Received hemodialysis yesterday. Currently receiving vital high protein for nutrition at 30 with a goal of 30. He is getting appointment 9 IV at 20. Additional recommendations suggestions are forthcoming. More than 30 minutes was spent with this patient. Plan dated 08/07/2016 The patient is doing better. Much more awake and alert. Did not require BiPAP last night. Currently on O2 at 2 L. We'll continue to get him up in a chair today. He'll continue getting his hemodialysis. We'll see if we can get the NG tube out of him today and feeding him orally. He will have a swallow evaluation. Physical therapy is working with him currently. Time with Patient: Less than 30
--- NOTE | 2016-08-07 10:15 | P.PN ---
Subjective Principal diagnosis: Non-ST elevation myocardial infarction. POD #9 non-aortic clamp off pump double coronary artery bypass grafting using the left internal mammary artery to the left anterior descending artery and reverse saphenous vein graft from the aorta to the posterior descending artery. Endoscopic harvesting of the right greater saphenous vein. Intraoperative transesophageal echocardiogram and epi-aortic scanning. Intraoperative graft flow measurements using the LibriLoopstim machine. Pt had intraparenchymal hemorrhage with increase oxygen demand after surgery requiring bronchoscopy. Bronchial washings demonstrate infection with pseudomonas, placed on IV zosyn, infectious disease following. The patient is much more alert this morning. Oriented 3. Following all commands. Speech appropriate. Generalized weakness present. Able to use incentive spirometry. No BiPAP necessary last night. Objective - Vital Signs Vital signs: Vital Signs Temp 98.1 F 08/07/16 08:00 Pulse 84 08/07/16 10:00 Resp 15 08/07/16 10:00 BP 130/75 08/05/16 13:00 Pulse Ox 96 08/07/16 10:00 Intake & Output 08/06/16 08/07/16 08/07/16 18:59 06:59 18:59 Intake Total 846 766 73 Output Total 128 60 7 Balance 718 706 66 Weight 87.8 kg Intake: IV 56 36 3 0.9 20 Pressure Bag 36 36 3 Intake, IV Titration 270 290 20 Amount Piperacillin-Tazobactam 3 50 50 .375 gm In Dextrose/Water 1 50ml.bag @ 12.5 mls/hr IVPB Q12HR [facility] Rx#: [id number] Sodium Chloride 0.9% 1, 220 240 20 000 ml @ 20 mls/hr IV . Q24H [facility] Rx#:[id number] Tube Feeding 460 440 50 Other 60 Output: Urine 128 60 7 Other: Voiding Method Indwelling Catheter Indwelling Catheter # Bowel Movements 2 1 ABP, PAP, CO, CI - Last Documented Arterial Blood Pressure 148/50 Pulmonary Artery Pressure 40/30 Cardiac Output 6.4 Cardiac Index 3.3 - Constitutional General appearance: Present: cooperative, no acute distress - Respiratory Details: Lungs sounds diminished bilaterally. Respirations even, nonlabored. Currently on 4 L nasal cannula. Able to achieve 750 mL on his incentive spirometry. - Cardiovascular Details: S1, S2 present. Regular rate and rhythm, normal sinus rhythm on telemetry, no events noted on telemetry overnight. Heart hugger/teds/SCDs in place. Bilateral upper extremity non-pitting edema still present. - Gastrointestinal Gastrointestinal Comment(s): Abdomen soft, nontender, nondistended. Active bowel sounds 4 quadrants. Nepro tube feedings infusing at 50 mL per hour through NG tube. - Genitourinary Genitourinary Comment(s): Sparks present draining clear, yellow urine. Output 15-50 mL per hour overnight. - Musculoskeletal Musculoskeletal: Present: generalized weakness - Psychiatric Psychiatric: Present: A&O x's 3, appropriate affect, intact judgment & insight - Allied health notes Allied health notes reviewed: nursing - Labs CBC & Chem 7: 08/07/16 05:10 08/07/16 05:10 Labs: Abnormal Lab Results - Last 24 Hours (Table) 08/06/16 08/06/16 08/06/16 Range/Units 12:12 16:25 20:19 WBC (3.8-10.6) k/uL RBC (4.30-5.90) m/uL Hgb (13.0-17.5) gm/dL Hct (39.0-53.0) % RDW (11.5-15.5) % Neutrophils # (1.3-7.7) k/uL Lymphocytes # (1.0-4.8) k/uL BUN (9-20) mg/dL Creatinine (0.66-1.25) mg/dL Glucose (74-99) mg/dL POC Glucose (mg/dL) 141 H 152 H 121 H (75-99) mg/dL Magnesium (1.6-2.3) mg/dL Alkaline Phosphatase (38-126) U/L Albumin (3.5-5.0) g/dL 08/07/16 08/07/16 08/07/16 Range/Units 00:13 04:03 05:10 WBC 12.8 H (3.8-10.6) k/uL RBC 3.22 L (4.30-5.90) m/uL Hgb 9.6 L (13.0-17.5) gm/dL Hct 30.0 L (39.0-53.0) % RDW 19.1 H (11.5-15.5) % Neutrophils # 11.8 H (1.3-7.7) k/uL Lymphocytes # 0.3 L (1.0-4.8) k/uL BUN (9-20) mg/dL Creatinine (0.66-1.25) mg/dL Glucose (74-99) mg/dL POC Glucose (mg/dL) 148 H 156 H (75-99) mg/dL Magnesium (1.6-2.3) mg/dL Alkaline Phosphatase (38-126) U/L Albumin (3.5-5.0) g/dL 08/07/16 08/07/16 Range/Units 05:10 07:46 WBC (3.8-10.6) k/uL RBC (4.30-5.90) m/uL Hgb (13.0-17.5) gm/dL Hct (39.0-53.0) % RDW (11.5-15.5) % Neutrophils # (1.3-7.7) k/uL Lymphocytes # (1.0-4.8) k/uL BUN 59 H (9-20) mg/dL Creatinine 3.17 H (0.66-1.25) mg/dL Glucose 148 H (74-99) mg/dL POC Glucose (mg/dL) 138 H (75-99) mg/dL Magnesium 2.6 H (1.6-2.3) mg/dL Alkaline Phosphatase 205 H (38-126) U/L Albumin 3.3 L (3.5-5.0) g/dL Microbiology - Last 24 Hours (Table) 07/31/16 05:55 Blood Culture - Final Blood No Growth after 144 hours 07/31/16 05:55 Blood Culture - Final Blood No Growth after 144 hours - Imaging and Cardiology Chest x-ray: image reviewed Assessment and Plan (1) Non-STEMI (non-ST elevated myocardial infarction) Status: Acute (2) Hypertension Status: Acute (3) Hyperlipidemia Status: Acute (4) End-stage renal disease on hemodialysis Status: Acute Plan: 1. Continue aspirin, Lipitor, heparin SQ, lisinopril. Will increase Lopressor to 25 mg twice a day 2. Continue amiodarone for Afib prophylaxis. 3. Dialysis again today per nephrology. 4. PT/OT to work with patient, out of bed to chair today. If unable to get out of bed to chair, place bed in chair mode. 5. Continue Zosyn, ID following. 6. Continue with nutrition through NGT until pt able to swallow safely. Swallow eval ordered for today. 7. Will continue to monitor labs, chest x-rays. 8. Insulin management per primary service. 9. GI/DVT prophylaxis. 10. Will reapply hard boot to left lower extremity when patient ambulatory 11. Will keep in the ICU for at least another 24 hours. Hopeful transfer to [facility] 24-48 hours. Time with Patient: Greater than 30
[2016-08-07] MEDS: VITAMIN A 10,000 UNIT CAPSULE PO SCH (10:18)
[2016-08-07] MEDS: PIPERACILLIN-TAZOBACTAM 3.375 GM in DEXTROSE/WATER 1 50ML.BAG IVPB SCH ×2 (10:37→22:22)
--- NOTE | 2016-08-07 10:48 | P.PN ---
Subjective Patient seen in follow-up for end-stage renal disease. He is maintained on hemodialysis on a Friday schedule. He was extubated August 04 and is currently receiving a breathing treatment. He's been undergoing dialysis almost on a daily basis and had 4 L ultrafiltration yesterday. He underwent 2 bronchoscopies this admission revealing left lung bleeding. Bronchial washings positive for Pseudomonas. He's been more alert today compared to yesterday. Hemodynamically stable. He is maintained on tube feeds currently. He is on a nasal cannula. Vital signs are stable. General: The patient appeared well nourished and normally developed. HEENT: Head exam is unremarkable. Neck is without jugular venous distension. LUNGS: Diffuse rhonchi. Breath sounds decreased. HEART: Rate and Rhythm are regular. First and second heart sounds normal. No murmurs, rubs or gallops. ABDOMEN: Abdominal exam reveals normal bowel sounds. Non-tender and non- distended. No evidence of peritonitis. EXTREMITITES: 1+ edema. Objective - Vital Signs Vital signs: Vital Signs Temp 98.1 F 08/07/16 08:00 Pulse 84 08/07/16 10:00 Resp 15 08/07/16 10:00 BP 130/75 08/05/16 13:00 Pulse Ox 96 08/07/16 10:00 Intake & Output 08/06/16 08/07/16 08/07/16 18:59 06:59 18:59 Intake Total 846 766 192 Output Total 128 60 27 Balance 718 706 165 Weight 87.8 kg 83.1 kg Intake: IV 56 36 12 0.9 20 Pressure Bag 36 36 12 Intake, IV Titration 270 290 80 Amount Piperacillin-Tazobactam 3 50 50 .375 gm In Dextrose/Water 1 50ml.bag @ 12.5 mls/hr IVPB Q12HR [facility] Rx#: [id number] Sodium Chloride 0.9% 1, 220 240 80 000 ml @ 20 mls/hr IV . Q24H [facility] Rx#:[id number] Tube Feeding 460 440 100 Other 60 Output: Urine 128 60 27 Other: Voiding Method Indwelling Catheter Indwelling Catheter Indwelling Catheter # Bowel Movements 2 1 ABP, PAP, CO, CI - Last Documented Arterial Blood Pressure 148/50 Pulmonary Artery Pressure 40/30 Cardiac Output 6.4 Cardiac Index 3.3 - Labs CBC & Chem 7: 08/07/16 05:10 08/07/16 05:10 Labs: Abnormal Lab Results - Last 24 Hours (Table) 08/06/16 08/06/16 08/06/16 Range/Units 12:12 16:25 20:19 WBC (3.8-10.6) k/uL RBC (4.30-5.90) m/uL Hgb (13.0-17.5) gm/dL Hct (39.0-53.0) % RDW (11.5-15.5) % Neutrophils # (1.3-7.7) k/uL Lymphocytes # (1.0-4.8) k/uL BUN (9-20) mg/dL Creatinine (0.66-1.25) mg/dL Glucose (74-99) mg/dL POC Glucose (mg/dL) 141 H 152 H 121 H (75-99) mg/dL Magnesium (1.6-2.3) mg/dL Alkaline Phosphatase (38-126) U/L Albumin (3.5-5.0) g/dL 08/07/16 08/07/16 08/07/16 Range/Units 00:13 04:03 05:10 WBC 12.8 H (3.8-10.6) k/uL RBC 3.22 L (4.30-5.90) m/uL Hgb 9.6 L (13.0-17.5) gm/dL Hct 30.0 L (39.0-53.0) % RDW 19.1 H (11.5-15.5) % Neutrophils # 11.8 H (1.3-7.7) k/uL Lymphocytes # 0.3 L (1.0-4.8) k/uL BUN (9-20) mg/dL Creatinine (0.66-1.25) mg/dL Glucose (74-99) mg/dL POC Glucose (mg/dL) 148 H 156 H (75-99) mg/dL Magnesium (1.6-2.3) mg/dL Alkaline Phosphatase (38-126) U/L Albumin (3.5-5.0) g/dL 08/07/16 08/07/16 Range/Units 05:10 07:46 WBC (3.8-10.6) k/uL RBC (4.30-5.90) m/uL Hgb (13.0-17.5) gm/dL Hct (39.0-53.0) % RDW (11.5-15.5) % Neutrophils # (1.3-7.7) k/uL Lymphocytes # (1.0-4.8) k/uL BUN 59 H (9-20) mg/dL Creatinine 3.17 H (0.66-1.25) mg/dL Glucose 148 H (74-99) mg/dL POC Glucose (mg/dL) 138 H (75-99) mg/dL Magnesium 2.6 H (1.6-2.3) mg/dL Alkaline Phosphatase 205 H (38-126) U/L Albumin 3.3 L (3.5-5.0) g/dL Microbiology - Last 24 Hours (Table) 07/31/16 05:55 Blood Culture - Final Blood No Growth after 144 hours 07/31/16 05:55 Blood Culture - Final Blood No Growth after 144 hours Assessment and Plan Plan: Assessment: #1. End-stage renal disease maintained on hemodialysis on a Friday schedule via left upper extremity AV graft. #2. 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 #3. Left lung blood clots status post bronchoscopy 2. #4. Anemia. Hemoglobin 9.6 today. Plan: Hemodialysis today with goal 2-3 L ultrafiltration as blood pressure tolerates. Will plan on dialyzing him again tomorrow for gradual ultrafiltration. Maintain Aranesp. Continue antibiotics. Continue with physical therapy.
--- NOTE | 2016-08-07 11:05 | XR ---
EXAMINATION TYPE: XR chest 1V portable DATE OF EXAM: 08/07/2016 7:08 AM COMPARISON: Prior chest x-ray July HISTORY: Status post cardiac surgery TECHNIQUE: Single frontal view of the chest is obtained. FINDINGS: NG tube is in place, distal tip not included on exam, right-sided PICC line is stable. Int erstitium appears somewhat improved. Bibasilar density persists, heart is enlarged. No evident pneumo thorax. IMPRESSION: Suspect there is improvement in volume status, aeration
[2016-08-07 12:14] LABS: Glucose,Whole Blood 149 mg/dL (75-99)
[2016-08-07] MEDS: FOLIC ACID 1 MG TAB PO SCH (14:12)
[2016-08-07] MEDS: DIPHENOX-ATROP 2.5-0.025MG/5ML 60 ML BOTTLE PO PRN (14:50)
--- NOTE | 2016-08-07 17:06 | P.PN ---
Subjective Date of service 08/07/2016 Progress note being dictated for . Interval history: This a 80-year-old gentleman status post CABG, pulmonary edema , end-stage renal disease on hemodialysis, and left mainstem bronchus blood clots leading to left lung collapse, status post bronchoscopy and multiple other medical issues. Remains off BiPAP throughout the night, currently on 4 L nasal cannula O2. Sensorium continues to improve but still drowsy, weak cough, possibly swallowing sputum. Continues on Zosyn. Chest x-ray reporting improvement in volume status, aeration, bibasilar density persists.scheduled for hemodialysis again today.Family in at bedside. Initially was hoping to discontinue tube feedings, as patient developed diarrhea during the night, 3 episodes this morning, tested negative for C. difficile. Hoping to possibly advance diet but patient to sleepy per swallow evaluation. Patient drowsy , review of systems cannot be completed. A Active Medications Generic Name Dose Route Start Last Admin Trade Name Freq PRN Reason Stop Dose Admin Hydrocodone Bitart/Acetaminophen 2 each 07/30/16 13:06 08/05/16 21:46 [place]well 5-325 PO 2 each Q4HR PRN Administration Severe Pain Hydrocodone Bitart/Acetaminophen 1 each 07/30/16 13:06 [place] 5-325 PO Q4HR PRN Moderate Pain Albuterol/Ipratropium 3 ml 07/30/16 13:08 Duoneb 0.5 Mg-3 Mg/3 Ml Soln INHALATION RT-Q2H PRN Shortness Of Breath Or Wheezing Albuterol/Ipratropium 3 ml 08/05/16 12:00 08/07/16 11:55 Duoneb 0.5 Mg-3 Mg/3 Ml Soln INHALATION 3 ml RT-QID [facility] Administration Amiodarone HCl 200 mg 08/02/16 21:00 08/07/16 08:35 Cordarone PO 200 mg BID RINA Administration Aspirin 81 mg 07/30/16 09:14 08/07/16 08:35 Aspirin PO 81 mg DAILY [facility] Administration Atorvastatin Calcium 40 mg 07/30/16 09:00 08/07/16 08:34 Lipitor PO 40 mg DAILY [facility] Administration Benzocaine/Menthol 1 each 07/29/16 13:32 Cepacol Lozenge MUCOUS MEM Q2H PRN Sore Throat Bisacodyl 10 mg 07/30/16 13:07 Dulcolax RECTAL DAILY PRN Constipation Calcium Acetate 667 mg 08/03/16 07:30 08/07/16 14:12 Phoslo PO 667 mg TID-W/MEALS [facility] Administration Darbepoetin Kevin 40 mcg 08/01/16 15:00 08/01/16 15:49 Aranesp SQ 40 mcg Q7D [facility] Administration Dexamethasone Sodium Phosphate 4 mg 08/04/16 21:00 08/07/16 08:35 Decadron IV 4 mg Q12HR [facility] Administration Diphenoxylate HCl/Atropine 2.5 ml 08/07/16 13:49 08/07/16 14:50 Lomotil Oral Soln PO 2.5 ml QID PRN Administration Diarrhea Folic Acid 1 mg 08/03/16 12:00 08/07/16 14:12 Folic Acid PO 1 mg DAILY@1200 [facility] Administration Heparin Sodium (Porcine) 5,000 unit 07/29/16 22:00 08/07/16 08:34 Heparin SQ 5,000 unit Q8HR [facility] Administration Hydralazine HCl 10 mg 08/03/16 21:54 08/06/16 10:27 Apresoline IVP 10 mg Q6HR PRN Administration Blood Pressure - High Sodium Chloride 1,000 mls @ 20 mls/hr 08/01/16 19:45 08/06/16 17:29 Saline 0.9% IV 20 mls/hr .Q24H [facility] Administration Piperacillin/Tazobactam/ 50 mls @ 12.5 mls/hr 08/02/16 14:00 08/07/16 10:37 Dextrose 3.375 gm/ IV Solution IVPB 12.5 mls/hr Q12HR [facility] Administration Insulin Human Lispro 0 unit 08/07/16 17:30 Humalog SQ ACHS [facility] Protocol Lisinopril 10 mg 08/05/16 09:00 08/07/16 08:35 Zestril PO 10 mg DAILY [facility] Administration Magnesium Hydroxide 2,400 mg 07/30/16 13:07 Milk Of Magnesia PO BID PRN Constipation Metoclopramide HCl 10 mg 07/29/16 13:32 Reglan IVP Q4H PRN Nausea And Vomiting Metoprolol Tartrate 25 mg 08/07/16 09:00 08/07/16 08:36 Lopressor PO 25 mg BID [facility] Administration Miscellaneous Information 1 each 07/29/16 13:32 Magnesium Per Protocol MISCELLANE DAILY PRN Per Protocol Protocol Miscellaneous Information 1 each 07/29/16 13:32 Phosphorus Per Protocol MISCELLANE DAILY PRN Per Protocol Protocol Miscellaneous Information 1 each 07/29/16 13:32 Potassium Per Protocol MISCELLANE DAILY PRN Per Protocol Protocol Ondansetron HCl 4 mg 07/29/16 13:32 Zofran IVP Q6HR PRN Nausea And Vomiting Pantoprazole Sodium 40 mg 07/30/16 09:00 08/07/16 08:35 Protonix IVP 40 mg DAILY [facility] Administration Senna/Docusate Sodium 2 each 07/30/16 21:00 08/06/16 22:23 Senokot-S PO Not Given HS [facility] Sodium Chloride 10 ml 07/29/16 21:00 08/07/16 10:17 Saline Flush IV 10 ml BID [facility] Administration Sodium Chloride 20 ml 08/02/16 14:57 Saline Flush IV Q4HR PRN PICC Line Sodium Chloride 10 ml 08/09/16 09:00 Saline Flush IV WEEKLY [facility] Sodium Chloride 10 ml 08/02/16 14:57 Saline Flush IV Q4HR PRN PICC Line Objective - Vital Signs Vital signs: Vital Signs Temp 97.5 F L 08/07/16 12:00 Pulse 85 08/07/16 14:00 Resp 24 08/07/16 14:00 BP 130/75 08/05/16 13:00 Pulse Ox 94 L 08/07/16 14:00 Intake & Output 08/06/16 08/07/16 08/07/16 18:59 06:59 18:59 Intake Total 846 766 737 Output Total 128 60 47 Balance 718 706 690 Weight 87.8 kg 83.1 kg Intake: IV 56 36 27 0.9 20 Pressure Bag 36 36 27 Intake, IV Titration 270 290 180 Amount Piperacillin-Tazobactam 3 50 50 .375 gm In Dextrose/Water 1 50ml.bag @ 12.5 mls/hr IVPB Q12HR [facility] Rx#: [id number] Sodium Chloride 0.9% 1, 220 240 180 000 ml @ 20 mls/hr IV . Q24H [facility] Rx#:[id number] Tube Feeding 460 440 500 Other 60 30 Output: Urine 128 60 47 Other: Voiding Method Indwelling Catheter Indwelling Catheter Indwelling Catheter # Bowel Movements 2 1 ABP, PAP, CO, CI - Last Documented Arterial Blood Pressure 143/47 Pulmonary Artery Pressure 40/30 Cardiac Output 6.4 Cardiac Index 3.3 - Exam PHYSICAL EXAM: VITAL SIGNS: As above GENERAL: [Sitting up in bed, weak, drowsy, conversing a little more with family ] HEENT: [Pupils equal, sluggish, conjunctiva normal.] NECK: [Supple, no JVD] RESPIRATORY EFFORT:[Increased] LUNGS: Shallow breaths, diminished , Fine bibasilar crackles, scattered rhonchi throughout, no wheezes. Weak cough.] CARDIOVASCULAR[regular S1 and S2, no murmurs rubs or gallops, positive edema] GI: [Abdomen soft, nontender, positive bowel sounds.] SKIN: Skin tear left upper arm near dialysis catheter/shunt., NEURO: As mentioned above drowsy, but alert and oriented 2, attempting to answer simple questions, moves all 4 extremities, extremely weak. Microbiology 07/31/16 05:55 Blood Blood Culture - Final No Growth after 144 hours 07/31/16 05:55 Blood Blood Culture - Final No Growth after 144 hours 08/01/16 16:15 Bronchial Washings - Left Gram Stain - Final 08/01/16 16:15 Bronchial Washings - Left Bronchial Washings Culture - Final Pseudomonas aeruginosa 08/01/16 16:15 Bronchial Washings - Left Acid Fast Bacilli Smear - Final 08/01/16 16:15 Bronchial Washings - Left Acid Fast Bacilli Culture - Preliminary 08/01/16 16:15 Bronchial Washings - Left Fungal Culture - Preliminary 07/25/16 20:46 Urine,Voided Urine Culture - Final - Labs CBC & Chem 7: 08/07/16 05:10 08/07/16 05:10 Labs: Abnormal Lab Results - Last 24 Hours (Table) 08/06/16 08/06/16 08/07/16 Range/Units 16:25 20:19 00:13 WBC (3.8-10.6) k/uL RBC (4.30-5.90) m/uL Hgb (13.0-17.5) gm/dL Hct (39.0-53.0) % RDW (11.5-15.5) % Neutrophils # (1.3-7.7) k/uL Lymphocytes # (1.0-4.8) k/uL BUN (9-20) mg/dL Creatinine (0.66-1.25) mg/dL Glucose (74-99) mg/dL POC Glucose (mg/dL) 152 H 121 H 148 H (75-99) mg/dL Magnesium (1.6-2.3) mg/dL Alkaline Phosphatase (38-126) U/L Albumin (3.5-5.0) g/dL 08/07/16 08/07/16 08/07/16 Range/Units 04:03 05:10 05:10 WBC 12.8 H (3.8-10.6) k/uL RBC 3.22 L (4.30-5.90) m/uL Hgb 9.6 L (13.0-17.5) gm/dL Hct 30.0 L (39.0-53.0) % RDW 19.1 H (11.5-15.5) % Neutrophils # 11.8 H (1.3-7.7) k/uL Lymphocytes # 0.3 L (1.0-4.8) k/uL BUN 59 H (9-20) mg/dL Creatinine 3.17 H (0.66-1.25) mg/dL Glucose 148 H (74-99) mg/dL POC Glucose (mg/dL) 156 H (75-99) mg/dL Magnesium 2.6 H (1.6-2.3) mg/dL Alkaline Phosphatase 205 H (38-126) U/L Albumin 3.3 L (3.5-5.0) g/dL 08/07/16 08/07/16 Range/Units 07:46 12:12 WBC (3.8-10.6) k/uL RBC (4.30-5.90) m/uL Hgb (13.0-17.5) gm/dL Hct (39.0-53.0) % RDW (11.5-15.5) % Neutrophils # (1.3-7.7) k/uL Lymphocytes # (1.0-4.8) k/uL BUN (9-20) mg/dL Creatinine (0.66-1.25) mg/dL Glucose (74-99) mg/dL POC Glucose (mg/dL) 138 H 149 H (75-99) mg/dL Magnesium (1.6-2.3) mg/dL Alkaline Phosphatase (38-126) U/L Albumin (3.5-5.0) g/dL Assessment and Plan Plan: 1. Acute hypoxic respiratory failure status post CABG secondary to pulmonary edema, status post BiPAP dependent. 2. [CKD, end-stage on HD]. 3. [Acute non-STEMI with acute exacerbation Mild left ventricular dysfunction with systolic CHF dysfunction]. 4. [Mild aortic stenosis]. 5. [Hypertension]. 6. [Hyperlipidemia]. 7. [CAD status post CABG]. 8. Rheumatoid arthritis 9. Metabolic bone disease 10. Hyperphosphatemia secondary to end-stage renal disease 11. Anemia of chronic kidney disease 12. Hyponatremia, hypovolemic 13. Possible pneumonia, left lower lobe, status post bronchoscopy reporting pseudomonas aeruginosa. 14. Left mainstem bronchus blood clots leading to left lung collapse, status post bronchoscopy 15. Hypoalbuminemia Plan: Continue with current medication regime , amiodarone, metoprolol, statin, ETELVINA inhibitor, monitoring and symptomatic treatment. PT/OT. Continues to be extremely weak. Swallow evaluation pending ;Speech therapy unable to do swallow evaluation at bedside given patient's drowsiness. Lomotil prn loose stools. Aggressive pulmonary toileting. Continues on nebulized bronchodilators, steroids .Prognosis guarded given multiple complex medical issues. Further recommendations to follow The impression and plan of care has been dictated as directed. : I performed a H&P examination of this patient and discussed the same with the dictator. I agree with the dictator's note. Any additional findings/opinions/ etc. will be noted.
[2016-08-07 17:51] LABS: Glucose,Whole Blood 116 mg/dL (75-99)
--- NOTE | 2016-08-07 17:54 | P.PN ---
Subjective Principal diagnosis: Status post CABG, renal failure and renal failure This is 80-year-old gentleman with history of chronic renal failure on dialysis , seemed to be feeling better today. Patient was without any BiPAP overnight. He seemed to be little more alert. A chest x-ray showed clearing of CHF. His rhythm is sinus. overall his mental status showed improvement. He is going to have a swallowing correlation and probably start feeding him. He may be more into a chair. He is also working with physical therapy. Objective - Vital Signs Vital signs: Vital Signs Temp 97.5 F L 08/07/16 12:00 Pulse 85 08/07/16 14:00 Resp 24 08/07/16 14:00 BP 130/75 08/05/16 13:00 Pulse Ox 94 L 08/07/16 14:00 Intake & Output 08/06/16 08/07/16 08/07/16 18:59 06:59 18:59 Intake Total 846 766 737 Output Total 128 60 47 Balance 718 706 690 Weight 87.8 kg 83.1 kg Intake: IV 56 36 27 0.9 20 Pressure Bag 36 36 27 Intake, IV Titration 270 290 180 Amount Piperacillin-Tazobactam 3 50 50 .375 gm In Dextrose/Water 1 50ml.bag @ 12.5 mls/hr IVPB Q12HR [facility] Rx#: [id number] Sodium Chloride 0.9% 1, 220 240 180 000 ml @ 20 mls/hr IV . Q24H [facility] Rx#:[id number] Tube Feeding 460 440 500 Other 60 30 Output: Urine 128 60 47 Other: Voiding Method Indwelling Catheter Indwelling Catheter Indwelling Catheter # Bowel Movements 2 1 ABP, PAP, CO, CI - Last Documented Arterial Blood Pressure 143/47 Pulmonary Artery Pressure 40/30 Cardiac Output 6.4 Cardiac Index 3.3 - Exam GENERAL EXAM: Patient is alert and oriented and doesn't appear to be in any acute distress HEENT: Normocephalic. Normal reaction of pupils, equal size, normal range of extraocular motion. No erythema or exudates in the throat. NECK: No masses, no nuchal rigidity. CHEST: No chest wall deformity. LUNGS: Seem to be clear. HEART: S1 and S2 normal with no audible mumurs or gallops. Regular rhythm, . ABDOMEN: No hepatosplenomegaly, normal bowel sounds, no guarding or rigidity. SKIN: No rashes CENTRAL NERVOUS SYSTEM: Much more alert. EXTREMITIES: No cyanosis, clubbing or edema. - Labs CBC & Chem 7: 08/07/16 05:10 08/07/16 05:10 Labs: Abnormal Lab Results - Last 24 Hours (Table) 08/06/16 08/07/16 08/07/16 Range/Units 20:19 00:13 04:03 WBC (3.8-10.6) k/uL RBC (4.30-5.90) m/uL Hgb (13.0-17.5) gm/dL Hct (39.0-53.0) % RDW (11.5-15.5) % Neutrophils # (1.3-7.7) k/uL Lymphocytes # (1.0-4.8) k/uL BUN (9-20) mg/dL Creatinine (0.66-1.25) mg/dL Glucose (74-99) mg/dL POC Glucose (mg/dL) 121 H 148 H 156 H (75-99) mg/dL Magnesium (1.6-2.3) mg/dL Alkaline Phosphatase (38-126) U/L Albumin (3.5-5.0) g/dL 08/07/16 08/07/16 08/07/16 Range/Units 05:10 05:10 07:46 WBC 12.8 H (3.8-10.6) k/uL RBC 3.22 L (4.30-5.90) m/uL Hgb 9.6 L (13.0-17.5) gm/dL Hct 30.0 L (39.0-53.0) % RDW 19.1 H (11.5-15.5) % Neutrophils # 11.8 H (1.3-7.7) k/uL Lymphocytes # 0.3 L (1.0-4.8) k/uL BUN 59 H (9-20) mg/dL Creatinine 3.17 H (0.66-1.25) mg/dL Glucose 148 H (74-99) mg/dL POC Glucose (mg/dL) 138 H (75-99) mg/dL Magnesium 2.6 H (1.6-2.3) mg/dL Alkaline Phosphatase 205 H (38-126) U/L Albumin 3.3 L (3.5-5.0) g/dL 08/07/16 Range/Units 12:12 WBC (3.8-10.6) k/uL RBC (4.30-5.90) m/uL Hgb (13.0-17.5) gm/dL Hct (39.0-53.0) % RDW (11.5-15.5) % Neutrophils # (1.3-7.7) k/uL Lymphocytes # (1.0-4.8) k/uL BUN (9-20) mg/dL Creatinine (0.66-1.25) mg/dL Glucose (74-99) mg/dL POC Glucose (mg/dL) 149 H (75-99) mg/dL Magnesium (1.6-2.3) mg/dL Alkaline Phosphatase (38-126) U/L Albumin (3.5-5.0) g/dL Assessment and Plan (1) Status post aorto-coronary artery bypass graft Status: Acute (2) End-stage renal disease on hemodialysis Status: Acute (3) Hyperlipidemia Status: Acute (4) Hypertension Status: Acute (5) Non-STEMI (non-ST elevated myocardial infarction) Status: Acute Plan: Patient has shown much improvement in clinical status and respiratory status. His activity to be increased. Physical therapy working with him. Continue current medical therapy.
[2016-08-07] MEDS: SENNOSIDES-DOCUSATE SODIUM 1 EACH TAB PO SCH (19:27)
[2016-08-07] MEDS: SODIUM CHLORIDE 0.9% 1,000 ML IV SCH (21:40)
--- NOTE | 2016-08-07 22:45 | PN ---
This 80-year-old gentleman who was admitted because of multiple medical issues. I have seen and evaluated the patient with the nurse practitioner. Please refer to the nurse practitioner's notes and impressions documented as scribe for further information. Monitor blood sugars closely. The patient is slightly confused, but sensorium is definitely improving compared to yesterday. Further recommendations to follow. See orders for further details.
[2016-08-07 23:16] LABS: Glucose,Whole Blood 113 mg/dL (75-99)
[2016-08-08 04:46] LABS: Anisocytosis Slight; Basophils % (A) 0 %; CHCM 31.7; Eosinophils % (A) 0 %; HCT 28.9 % (39.0-53.0); HDW 3.32; HGB 9.3 gm/dL (13.0-17.5); Hypochromasia Slight; Luc # (Auto) 0.19; Luc % (Auto) 2; Lymphocytes # (A) 0.3 k/uL (1.0-4.8); Lymphocytes % (A) 3 %; MCH 30.6 pg (25.0-35.0); MCHC 32.1 g/dL (31.0-37.0); MCV 95.3 fL (80.0-100.0); Macrocytosis Slight; Mean Platelet Volume 8.7; Monocytes # (A) 0.4 k/uL (0-1.0); Monocytes % (A) 4 %; Neutrophils # (A) 10.5 k/uL (1.3-7.7); Neutrophils % (A) 92 %; RBC 3.03 m/uL (4.30-5.90); RDW 18.9 % (11.5-15.5); WBC 11.4 k/uL (3.8-10.6); WBC (Perox) 11.86
[2016-08-08 05:21] LABS: Magnesium 2.4 mg/dL (1.6-2.3); Phosphorous 4.6 mg/dL (2.5-4.5); Potassium 4.1 mmol/L (3.5-5.1); Total Bilirubin 1.1 mg/dL (0.2-1.3); Total Protein 6.3 g/dL (6.3-8.2)
[2016-08-08 07:29] LABS: Glucose,Whole Blood 119 mg/dL (75-99)
--- NOTE | 2016-08-08 08:05 | XR ---
EXAMINATION TYPE: XR chest 1V portable DATE OF EXAM: 08/08/2016 7:05 AM COMPARISON: Prior chest x-ray July HISTORY: Abnormal chest x-ray, postop cardiac surgery TECHNIQUE: Single frontal view of the chest is obtained. FINDINGS: NG tube has been removed. Right-sided PICC line remains in place. No sizable pneumothorax. Heart remains enlarged. Patient is post median sternotomy. There are overlying cardiac leads. Bibasi lar density persists. IMPRESSION: Basilar effusions and associated atelectasis versus edema, correlate to exclude pneumoni a. Postop changes, cardiomegaly.
[2016-08-08] MEDS: IPRATROPIUM-ALBUTEROL 3 ML NEB INHALATION SCH ×4 (08:27→21:44)
[2016-08-08] MEDS: INSULIN LISPRO (humaLOG) 300 UNIT/3 ML VIAL SQ SCH ×4 (08:40→21:46)
[2016-08-08] MEDS: AMIODARONE 200 MG TAB PO SCH ×2 (08:41→21:46)
[2016-08-08] MEDS: ATORVASTATIN 40 MG TAB PO SCH (08:41)
[2016-08-08] MEDS: DEXAMETHASONE SOD PHOSPHATE 4 MG/ML 1 ML VIAL IV SCH (08:41)
[2016-08-08] MEDS: ASPIRIN 81 MG CHEW PO SCH (08:41)
[2016-08-08] MEDS: HEPARIN SODIUM,PORCINE 5,000 UNIT/ML 1 ML VIAL SQ SCH ×2 (08:41→17:25)
[2016-08-08] MEDS: LISINOPRIL 10 MG TAB PO SCH (08:42)
[2016-08-08] MEDS: METOPROLOL TARTRATE 25 MG TAB PO SCH ×2 (08:42→21:46)
[2016-08-08] MEDS: PANTOPRAZOLE 40 MG/10 ML VIAL IVP SCH (08:42)
[2016-08-08] MEDS: CALCIUM ACETATE 667 MG CAP PO SCH ×3 (08:59→17:26)
--- NOTE | 2016-08-08 09:44 | P.PN ---
Subjective Principal diagnosis: Non-ST elevation myocardial infarction. POD #10 non-aortic clamp off pump double coronary artery bypass grafting using the left internal mammary artery to the left anterior descending artery and reverse saphenous vein graft from the aorta to the posterior descending artery. Endoscopic harvesting of the right greater saphenous vein. Intraoperative transesophageal echocardiogram and epi-aortic scanning. Intraoperative graft flow measurements using the [employer] machine. Pt had intraparenchymal hemorrhage with increase oxygen demand after surgery requiring bronchoscopy. Bronchial washings demonstrate infection with pseudomonas, placed on IV zosyn, infectious disease following. The patient is much more alert this morning. Oriented 3. Following all commands. Speech appropriate. Generalized weakness present. Able to use incentive spirometry. No BiPAP necessary last night. Patient passed his swallow eval yesterday, NG tube removed. Tolerating liquids at this point. Objective - Vital Signs Vital signs: Vital Signs Temp 98.3 F 08/08/16 04:00 Pulse 74 08/08/16 08:28 Resp 11 L 08/08/16 07:00 BP 130/75 08/05/16 13:00 Pulse Ox 99 08/08/16 07:00 Intake & Output 08/07/16 08/08/16 08/08/16 18:59 06:59 18:59 Intake Total 806 136 3 Output Total 68 30 5 Balance 738 106 -2 Weight 83.1 kg Intake: IV 36 36 3 Pressure Bag 36 36 3 Intake, IV Titration 240 100 Amount Sodium Chloride 0.9% 1, 240 100 000 ml @ 20 mls/hr IV . Q24H [facility] Rx#:[id number] Tube Feeding 500 Other 30 Output: Urine 68 30 5 Other: Voiding Method Indwelling Catheter Indwelling Catheter # Bowel Movements 1 ABP, PAP, CO, CI - Last Documented Arterial Blood Pressure 118/38 Pulmonary Artery Pressure 40/30 Cardiac Output 6.4 Cardiac Index 3.3 - Constitutional General appearance: Present: cooperative, no acute distress - Respiratory Details: Lungs sounds diminished bilaterally. Respirations even, nonlabored. Currently on 4 L nasal cannula. Able to achieve 750 mL on his incentive's premature. Effective cough. Chest x-ray reviewed. - Cardiovascular Details: S1, S2 present. Regular rate and rhythm, normal sinus rhythm on telemetry, no events noted on telemetry overnight. Sternum stable. Heart hugger/teds for/ SCDs present. - Gastrointestinal Gastrointestinal Comment(s): Abdomen soft, nontender, nondistended. Active bowel sounds 4 quadrants. Tolerating diet. - Genitourinary Genitourinary Comment(s): Sparks present draining minimal clear yellow urine. Urine output 20 mL overnight. Patient received dialysis yesterday, due to receive dialysis again today. - Integumentary Integumentary Comment(s): Anterior chest incision covered with dry intact silver dressing which was changed yesterday. - Musculoskeletal Musculoskeletal: Present: generalized weakness - Psychiatric Psychiatric: Present: A&O x's 3, appropriate affect, intact judgment & insight - Allied health notes Allied health notes reviewed: nursing - Labs CBC & Chem 7: 08/08/16 04:25 08/08/16 04:25 Labs: Abnormal Lab Results - Last 24 Hours (Table) 08/07/16 08/07/16 08/07/16 Range/Units 12:12 17:41 22:25 WBC (3.8-10.6) k/uL RBC (4.30-5.90) m/uL Hgb (13.0-17.5) gm/dL Hct (39.0-53.0) % RDW (11.5-15.5) % Neutrophils # (1.3-7.7) k/uL Lymphocytes # (1.0-4.8) k/uL BUN (9-20) mg/dL Creatinine (0.66-1.25) mg/dL Glucose (74-99) mg/dL POC Glucose (mg/dL) 149 H 116 H 113 H (75-99) mg/dL Phosphorus (2.5-4.5) mg/dL Magnesium (1.6-2.3) mg/dL AST (17-59) U/L Alkaline Phosphatase (38-126) U/L Albumin (3.5-5.0) g/dL 08/08/16 08/08/16 08/08/16 Range/Units 04:25 04:25 07:23 WBC 11.4 H (3.8-10.6) k/uL RBC 3.03 L (4.30-5.90) m/uL Hgb 9.3 L (13.0-17.5) gm/dL Hct 28.9 L (39.0-53.0) % RDW 18.9 H (11.5-15.5) % Neutrophils # 10.5 H (1.3-7.7) k/uL Lymphocytes # 0.3 L (1.0-4.8) k/uL BUN 52 H (9-20) mg/dL Creatinine 3.10 H (0.66-1.25) mg/dL Glucose 132 H (74-99) mg/dL POC Glucose (mg/dL) 119 H (75-99) mg/dL Phosphorus 4.6 H (2.5-4.5) mg/dL Magnesium 2.4 H (1.6-2.3) mg/dL AST 70 H (17-59) U/L Alkaline Phosphatase 150 H (38-126) U/L Albumin 3.3 L (3.5-5.0) g/dL - Imaging and Cardiology Chest x-ray: report reviewed, image reviewed Assessment and Plan (1) Non-STEMI (non-ST elevated myocardial infarction) Status: Acute (2) Hypertension Status: Acute (3) Hyperlipidemia Status: Acute (4) End-stage renal disease on hemodialysis Status: Acute Plan: 1. Continue aspirin, Lipitor, heparin SQ, lisinopril, lopressor. 2. Continue amiodarone for Afib prophylaxis. 3. Dialysis again today per nephrology. BREANNE Sparks 4. PT/OT to work with patient, out of bed to chair today. If unable to get out of bed to chair, place bed in chair mode. 5. Continue Zosyn, ID following. 6. Advanced diet as tolerated. 7. Encourage incentive spirometry use. BREANNE Sharpeadivelisse per pulmonology. 8. Will continue to monitor labs, chest x-rays. 9. Insulin management per primary service. 10. GI/DVT prophylaxis. 11. Will reapply hard boot to left lower extremity when patient ambulatory 12. Possible transfer to E. selective care later today. 13. Case management for/social work on for discharge planning. Probable discharge to rehab facility. Time with Patient: Greater than 30
--- NOTE | 2016-08-08 09:47 | P.PN ---
Subjective Patient seen in follow-up for end-stage renal disease. He is maintained on hemodialysis on a Friday schedule. He was extubated August 04 and is currently on a nasal cannula. He's been undergoing dialysis almost on a daily basis and had 2.5 L ultrafiltration yesterday. He underwent 2 bronchoscopies this admission revealing left lung bleeding. Bronchial washings positive for Pseudomonas. He's been more alert today compared to yesterday. Hemodynamically stable. He is now starting to tolerate oral intake. Vital signs are stable. General: The patient appeared well nourished and normally developed. HEENT: Head exam is unremarkable. Neck is without jugular venous distension. LUNGS: Diffuse rhonchi. Breath sounds decreased. HEART: Rate and Rhythm are regular. First and second heart sounds normal. No murmurs, rubs or gallops. ABDOMEN: Abdominal exam reveals normal bowel sounds. Non-tender and non- distended. No evidence of peritonitis. EXTREMITITES: 1+ edema. Objective - Vital Signs Vital signs: Vital Signs Temp 98.3 F 08/08/16 04:00 Pulse 78 08/08/16 08:47 Resp 11 L 08/08/16 07:00 BP 130/75 08/05/16 13:00 Pulse Ox 99 08/08/16 07:00 Intake & Output 08/07/16 08/08/16 08/08/16 18:59 06:59 18:59 Intake Total 806 136 3 Output Total 68 30 5 Balance 738 106 -2 Weight 83.1 kg Intake: IV 36 36 3 Pressure Bag 36 36 3 Intake, IV Titration 240 100 Amount Sodium Chloride 0.9% 1, 240 100 000 ml @ 20 mls/hr IV . Q24H [facility] Rx#:[id number] Tube Feeding 500 Other 30 Output: Urine 68 30 5 Other: Voiding Method Indwelling Catheter Indwelling Catheter # Bowel Movements 1 ABP, PAP, CO, CI - Last Documented Arterial Blood Pressure 118/38 Pulmonary Artery Pressure 40/30 Cardiac Output 6.4 Cardiac Index 3.3 - Labs CBC & Chem 7: 08/08/16 04:25 08/08/16 04:25 Labs: Abnormal Lab Results - Last 24 Hours (Table) 08/07/16 08/07/16 08/07/16 Range/Units 12:12 17:41 22:25 WBC (3.8-10.6) k/uL RBC (4.30-5.90) m/uL Hgb (13.0-17.5) gm/dL Hct (39.0-53.0) % RDW (11.5-15.5) % Neutrophils # (1.3-7.7) k/uL Lymphocytes # (1.0-4.8) k/uL BUN (9-20) mg/dL Creatinine (0.66-1.25) mg/dL Glucose (74-99) mg/dL POC Glucose (mg/dL) 149 H 116 H 113 H (75-99) mg/dL Phosphorus (2.5-4.5) mg/dL Magnesium (1.6-2.3) mg/dL AST (17-59) U/L Alkaline Phosphatase (38-126) U/L Albumin (3.5-5.0) g/dL 08/08/16 08/08/16 08/08/16 Range/Units 04:25 04:25 07:23 WBC 11.4 H (3.8-10.6) k/uL RBC 3.03 L (4.30-5.90) m/uL Hgb 9.3 L (13.0-17.5) gm/dL Hct 28.9 L (39.0-53.0) % RDW 18.9 H (11.5-15.5) % Neutrophils # 10.5 H (1.3-7.7) k/uL Lymphocytes # 0.3 L (1.0-4.8) k/uL BUN 52 H (9-20) mg/dL Creatinine 3.10 H (0.66-1.25) mg/dL Glucose 132 H (74-99) mg/dL POC Glucose (mg/dL) 119 H (75-99) mg/dL Phosphorus 4.6 H (2.5-4.5) mg/dL Magnesium 2.4 H (1.6-2.3) mg/dL AST 70 H (17-59) U/L Alkaline Phosphatase 150 H (38-126) U/L Albumin 3.3 L (3.5-5.0) g/dL Assessment and Plan Plan: Assessment: #1. End-stage renal disease maintained on hemodialysis on a Friday schedule via left upper extremity AV graft. #2. 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 #3. Left lung blood clots status post bronchoscopy 2. #4. Anemia. Hemoglobin 9.3 today. Plan: Hemodialysis today with goal 2-3 L ultrafiltration as blood pressure tolerates. Will plan on dialyzing him again tomorrow for gradual ultrafiltration. Maintain Aranesp. Continue antibiotics. Continue with physical therapy.
--- NOTE | 2016-08-08 10:34 | P.PN ---
Subjective Principal diagnosis: Status post CABG, postoperative day #7 This is a 80-year-old white male with history of multiple medical problems including hypertension, previous ischemic heart disease and mild aortic stenosis. End-stage renal disease on hemodialysis. History of rheumatoid arthritis, patient was admitted recently with chest pain, cardiac enzymes were suggestive of non-ST elevation myocardial infarction, cardiac cath showed significant coronary artery disease with critical lesion in the proximal LAD also the proximal RCA. Today, the patient underwent myocardial revascularization by Dr. Alcaraz, and he was placed on mechanical ventilation postoperatively, seen in the ICU for consultation and postoperative ventilator management. Presently, the patient is on 100% FiO2, assist control rate of 12, PEEP of 5, and tidal volume of 500. Initial ABG showed a pO2 of 364, pCO2 of 42 pH of 7.32. However shortly after patient was placed on a 50% FiO2, and he was noted to have significant drop in his saturation based on pulse oximetry. Repeat ABG showed worsening oxygenation with a pO2 of 46 pCO2 of 50 and pH of 7.28. Hence placed back on 100%, increased his rate up to 16, and increased the PEEP to 10. Follow-up chest x-ray showed worsening pulmonary edema, remind you patient is a hemodialysis patient. Follow-up ABG is pending. Patient is presently fully sedated, and in no distress. Reevaluated today on 07/30/2016, patient is status post off pump double coronary artery bypass grafting using L REJI to LAD, and reverse saphenous vein graft from the aorta to the posterior descending artery.patient remains on mechanical ventilation, chest x-ray is showing worsening picture of pulmonary edema, however the possibility of bleeding into the left midlung area and left lower lobe is not entirely ruled out there seems to be a worsening consolidation in the area of the left midlung and left lower lobe, hence may consider bronchoscopy on this patient. In the meantime, patient is being ultrafiltrate it today, and hopefully that will make a significant improvement on the chest x- ray appearance, and may help oxygenation.labs were reviewed, WBC count is 9.8 hemoglobin is 7.6 it was 6.5 earlier today,patient received a total of 5 units of packed RBCs since admission, 2 units of fresh frozen plasma, and 3 units of platelets. Reevaluated today on 07/31/2016, patient underwent another bronchoscopy today although his chest x-ray was showing some improvement compared to the chest x- ray yesterday after bronchoscopy. There was evidence of more aeration of the left upper lobe and lingula on the chest x-ray today. Today I was able to clear plugs from the left lower lobe bronchus, and from the lingular bronchus. Throughout the procedure there was some oozing of blood, and the mucosa of the bronchial tube was noted to be very fragile and bled easily. No biopsies were done. But suctioning and lavages of the left lower lobe and lingula was performed. In the meantime the patient remains on mechanical ventilations, today I increased his tidal volume up to 550 kept him on assist control rate of 16 I increased the flow rates up to 70, and FiO2 will be titrated down from 100 % during the bronchoscopy to as low as 50% as tolerated, and PEEP remains at 10 for the time being. Labs were reviewed, hemoglobin is 7.9 platelets are 114. Electrolytes were reviewed BUN is 31 creatinine is 4.29. On 08/01/2016, patient remains on mechanical ventilation, we were able earlier today to cut down the FiO2 to 50%, and PEEP was down to as low as 5%. However as the hemodialysis was started, patient began to desaturate, hence went back to a PEEP of 8. And increase his FiO2 to 55%. Patient is now undergoing hemodialysis, his chest x-ray is showing definite improvement, hence no need for bronchoscopy and evaluation of the left lung today. Still suctioning some bloody secretions from the endotracheal tube by respiratory. Labs were reviewed , hemoglobin is 7.3 today. Platelets are 101, INR is 1.1 electrolytes and renal profile were reviewed BUN is 24 creatinine is 3.24. Elevation of the left lung is definitely improved, small bilateral pleural effusions were noted On 08/02/2016, patient was reevaluated. I had to bronchoscope the patient late in the afternoon yesterday because of worsening chest x-ray and the patient continued to desaturate intermittently requiring increasing the FiO2 to 100%. Lavage was done of the left lower lobe lingula and left upper lobe, patient was placed on Decadron, cultures from the previous bronchoscopy came back positive for Pseudomonas, hence I started the patient today on Zosyn, and the patient is being followed by infectious disease on consultation. Patient remains on mechanical ventilation today, he is on a 50% and PEEP of 8 ABG showed a pO2 of 85 pCO2 of 33 pH of 7.48. Chest x-ray is showing better aeration of the left upper lobe lingula and left lower lobe, continues to have some atelectasis in the left lower lobe itself. It is not going to be dialyzed today, but will be dialyzed in a.m. BUN is 23 creatinine is 2.80 patient remains sedated on mechanical ventilation, however we plan to discontinue propofol briefly, assess his mental status today, and again he is not quite ready for extubation and weaning at this point. But this will definitely be addressed again tomorrow assuming his chest x-ray continues to show improvement. Reevaluated today on 08/03/2016, remains on mechanical ventilation, chest x-ray is showing definite improvement in the aeration of the left lung, patient will not eat to be bronchoscope today. However I do plan to consider a weaning trial on this patient today after hemodialysis. If tolerated may even proceeded to extubating the patient. ABG this morning showed a pO2 of 113 pCO2 of 29 pH of 7.50 hence I cut down the rate to 12, I also cut down the PEEP from 10-5. CBC showed hemoglobin of 7.1, I will leave it up to the surgeons to decide whether the patient needs to be transfused at this point. This may be done at the time of his dialysis. Electrolytes were reviewed BUN is 47 creatinine is 3.40. Chest x-ray as noted above. Reevaluated on 08/04/2016, remains on mechanical ventilation, chest x-ray today is showing slight worsening, I suspect there is some interstitial edema, and possibly minimal left lower lobe atelectasis or pneumonia involving the left lower lobe. ABG showed a pO2 of 123 pCO2 of 34 pH of 7.44 patient is presently on a PEEP of 5 and FiO2 of 50%. He has been off propofol for quite some time overnight, and I was hoping to assess his mental status today and likely extubated. However the patient remains lethargic off propofol, and considering the worsening of the chest x-ray, will likely have the patient dialyzed today, and address weaning again either later today or in a.m. We'll cut down the dose of Decadron, WBC count is down to 16.1 hemoglobin is 9.0 today The patient was seen again today in follow-up 08/05/2016. He was extubated approximately 5 PM yesterday and was maintained on 5 L/m per nasal cannula. This morning his saturations were 89-90%. He was seen by Dr. Alcaraz who placed the patient on BiPAP at 12/6 and 50%. Current blood gases reveal a pO2 of 87, pCO2 37, pH 7.45. A mild respiratory alkalosis. He is currently off sedation he has not received any pain medication or other forms of sedation. He is still quite difficult to arouse. He does open his eyes to verbal stimuli and he is moving all fours. He is maintaining good O2 saturations on 50%. He has a 0.9 normal saline at [facility]. He did receive dialysis again today with the plans to remove 4 L. His current creatinine is 3.20, BUN 56, hemoglobin 8.8 The bronchial wash did reveal pseudomonas aeruginosa. He is currently on Zosyn. Progress note dated 08/06/2016 This is a 80-year-old male who was extubated a couple days ago. I believe [id number].The patient has primarily been on BiPAP dependent since that time.Thepatient'jRqSBFana[id number]%. HisIVis0.0sh01hCmuyqdo.He is getting vital high protein at 30 with a goal of 30.QiioximrwarxnokfsomlllrewkdevyafOhscr98urp7.7Loffluidwasremoved.Hischestx- raysimproved.Heisapparentlygoingtohavehemodialysisagaintoday.I' mnotsurewhattheplanisfor.Hedidnothavebloodgasestoday. HeremainsonZosynforthePseudomonasrecoveredhisbronchialwash.AgainasImentionhische stx - raysimproved.Wearegoingtotryhimonsomenasalprongstoday.Helookslikehemightbeableto tolerateit. Progress note dated 08/07/2016 This is a 80-year-old male who was extubated on Friday evening. The patient is doing relatively well although for the first couple of days post extubation, he was BiPAP dependent. Yesterday we were able to transition him to nasal cannula. He is doing well. Did not need BiPAP all of last night. He is much more awake and alert. He is scheduled for hemodialysis. He's had hemodialysis last 2 days. Again he is much more awake and alert. Currently he is on O2 at 2 L. Not requiring BiPAP. He is getting appointment 9 IV at 20 mL an hour he is going to get hemodialysis today. Other than that things are going reasonably well but I think this patient should stay in the ICU for at least another day or so. The patient is seen again today 08/08/2016 in follow-up in the intensive care unit. He is currently awake and alert in no acute distress. He did have another 2-1/2 L removed per hemodialysis last evening. He is currently maintaining O2 saturation in the low 90s on 4 L/m per nasal cannula. He has a 0.9 at KVO via a PICC line. Today's chest x-ray reveals a right lower lobe infiltrate/effusion which is stable. He denies any worsening shortness of breath, cough or congestion. His bronchial wash findings from 08/01/2016 did reveal pseudomonas aeruginosa. He remains on bronchodilators and Zosyn. White count 11.4. Current BUN 52, creatinine 3.10. Objective - Vital Signs Vital signs: Vital Signs Temp 98.3 F 08/08/16 04:00 Pulse 78 08/08/16 08:47 Resp 11 L 08/08/16 07:00 BP 130/75 08/05/16 13:00 Pulse Ox 99 08/08/16 07:00 Intake & Output 08/07/16 08/08/16 08/08/16 18:59 06:59 18:59 Intake Total 806 136 3 Output Total 68 30 5 Balance 738 106 -2 Weight 83.1 kg Intake: IV 36 36 3 Pressure Bag 36 36 3 Intake, IV Titration 240 100 Amount Sodium Chloride 0.9% 1, 240 100 000 ml @ 20 mls/hr IV . Q24H [facility] Rx#:[id number] Tube Feeding 500 Other 30 Output: Urine 68 30 5 Other: Voiding Method Indwelling Catheter Indwelling Catheter # Bowel Movements 1 ABP, PAP, CO, CI - Last Documented Arterial Blood Pressure 118/38 Pulmonary Artery Pressure 40/30 Cardiac Output 6.4 Cardiac Index 3.3 - Exam GENERAL EXAM: Awake, alert in no acute distress. HEAD: Normocephalic. EYES: Risk reaction of pupils, equal size. NOSE: Clear with pink turbinates. THROAT: No erythema or exudates. NECK: No masses, no JVD. CHEST: No chest wall deformity. LUNGS: Equal air entry with crackles in the posterior bases. CVS: S1 and S2 normal with no audible murmurs, regular rhythm. ABDOMEN: No hepatosplenomegaly, normal bowel sounds. SPINE: No scoliosis or deformity SKIN: No rashes Extremities: There is trace peripheral edema. No clubbing, no cyanosis. Peripheral pulses are intact. - Labs CBC & Chem 7: 08/08/16 04:25 08/08/16 04:25 Labs: Abnormal Lab Results - Last 24 Hours (Table) 08/07/16 08/07/16 08/07/16 Range/Units 12:12 17:41 22:25 WBC (3.8-10.6) k/uL RBC (4.30-5.90) m/uL Hgb (13.0-17.5) gm/dL Hct (39.0-53.0) % RDW (11.5-15.5) % Neutrophils # (1.3-7.7) k/uL Lymphocytes # (1.0-4.8) k/uL BUN (9-20) mg/dL Creatinine (0.66-1.25) mg/dL Glucose (74-99) mg/dL POC Glucose (mg/dL) 149 H 116 H 113 H (75-99) mg/dL Phosphorus (2.5-4.5) mg/dL Magnesium (1.6-2.3) mg/dL AST (17-59) U/L Alkaline Phosphatase (38-126) U/L Albumin (3.5-5.0) g/dL 08/08/16 08/08/16 08/08/16 Range/Units 04:25 04:25 07:23 WBC 11.4 H (3.8-10.6) k/uL RBC 3.03 L (4.30-5.90) m/uL Hgb 9.3 L (13.0-17.5) gm/dL Hct 28.9 L (39.0-53.0) % RDW 18.9 H (11.5-15.5) % Neutrophils # 10.5 H (1.3-7.7) k/uL Lymphocytes # 0.3 L (1.0-4.8) k/uL BUN 52 H (9-20) mg/dL Creatinine 3.10 H (0.66-1.25) mg/dL Glucose 132 H (74-99) mg/dL POC Glucose (mg/dL) 119 H (75-99) mg/dL Phosphorus 4.6 H (2.5-4.5) mg/dL Magnesium 2.4 H (1.6-2.3) mg/dL AST 70 H (17-59) U/L Alkaline Phosphatase 150 H (38-126) U/L Albumin 3.3 L (3.5-5.0) g/dL Assessment and Plan Plan: Plan: Impression: 1 status post CABG, on mechanical ventilation, postoperative day #10 2 acute pulmonary edema as noted on the chest x-ray, patient is a hemodialysis patient and his history of chronic renal disease. 3 history of mild aortic stenosis 4 history of mild LV dysfunction 5 history of chronic anemia 6 history of chronic renal failure on hemodialysis 7 history of hypertension 8 history of hyperlipidemia 9 history of right groin pseudoaneurysm following cardiac catheterization. 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 However the patient will not need to be bronchoscoped on 08/02. And on 08/03. And on 08/04 13 acute ventilator associated pneumonia is strongly suspected, patient has Pseudomonas in his bronchial washing from the left lower lobe, hence will continue Zosyn Plan: The patient was seen and evaluated by Dr. Cary. His chest x-ray and labs were reviewed. We'll continue with his current medications. Will continue to encourage increased use of the incentive spirometer and cough and deep breathing exercises. We will plan to move the patient out to the selective care unit today. We'll continue to follow make further recommendations based on his clinical status.
[2016-08-08 12:33] LABS: Glucose,Whole Blood 128 mg/dL (75-99)
[2016-08-08] MEDS: PIPERACILLIN-TAZOBACTAM 3.375 GM in DEXTROSE/WATER 1 50ML.BAG IVPB SCH ×2 (12:42→21:46)
[2016-08-08] MEDS: FOLIC ACID 1 MG TAB PO SCH (12:43)
--- NOTE | 2016-08-08 17:08 | P.CONS ---
History of Present Illness - Chief Complaint Cardiac debility - History of Present Illness I had the opportunity to see patient for inpatient rehab consultation with regard to cardiac debility. He was admitted to [facility] July 24 with non- STEMI. Seen by Dr. Valiente and Dr. Gordon who is known to patient from wound clinic. Left heel ulcer. Seen by Dr. Chen who did nasal endoscopy. Seen by Dr. Jo who did bronchoscopy. Seen by radiology for PICC line placement. reports patient underwent coronary bypassing. Chest x-rays followed and demonstrated effusions and atelectasis. PT reports unable to assist with mobility. OT reports total assistance for bathing and dressing. Again unable to assist with any mobility. Speech therapy for swallow. Previous functional history, as elicited from : 80-year-old right-handed white male who is and lives in one floor home with . Still working full-time as a realtor. Describes independent with driving, standing shower and gait without device. Family history of cardiac disease in a sister. Review of Systems Review of systems: ENT: Denies sneezes or discharge. Eyes: Denies discharge or photophobia. Cardiac: Denies chest pain or palpitation. Perhaps some sternal discomfort. Pulmonary: Mild shortness of breath. Gastrointestinal: Denies nausea, emesis, constipation, diarrhea. Genitourinary: Denies discharge or frequency. Musculoskeletal: Denies muscle or bone aches. Neurologic: Generalized weakness. Endocrine: Denies shakes or sweats. Oncology: Denies cancers. Dermatologic: Denies rash, itching, pruritus. ALLERGY/immunology: Denies sneezes, rashes. Past Medical History Past Medical History: Heart Failure, Dialysis, Hyperlipidemia, Hypertension, Myocardial Infarction (VA), Osteoarthritis (OA), Renal Disease, Rheumatoid Arthritis (RA) Additional Past Medical History / Comment(s): Coronary artery disease with previous myocardial infarction 15 years ago, end-stage renal disease on hemodialysis from [facility] for rheumatoid arthritis, rheumatoid arthritis diagnosed 40 years ago and currently on prednisone only, left lower extremity ulcer being followed up at the wound center, hyperlipidemia, gout, mild aortic stenosis, CHF mild, chronic anemia, hypertension, previous history of staphylococcal and enterococcal wound infection. Patient had MRSA. 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 No medical marijuana, marijuana, street drug use. He currently lives at home with his and 2 dogs. He served in the [employer] for 8 years. Patient currently works in [employer] 6-7 days per week. Past Drug Use History: None Reported - Past Family History Father Family Medical History: Coronary Artery Disease (CAD) Additional Family Medical History / Comment(s): father in a car accident Mother Family Medical History: No Reported History Additional Family Medical History / Comment(s): mother of old age Medications and Allergies Home Medications Medication Instructions Recorded Confirmed Type Allopurinol [Zyloprim] 100 mg PO DAILY 02/10/15 07/24/16 History Aspirin [Adult Low Dose Aspirin EC] 81 mg PO DAILY 02/10/15 07/24/16 History Cholecalciferol [Vitamin D3] 1,000 unit PO DAILY@1200 02/10/15 07/24/16 History Famotidine [Pepcid] 20 mg PO BID 02/10/15 07/24/16 History Folic Acid 1 mg PO DAILY 02/10/15 07/24/16 History predniSONE 5 mg PO DAILY 02/10/15 07/24/16 History Atorvastatin [Lipitor] 10 mg PO DAILY 08/08/15 07/24/16 History HYDROcodone/APAP 10-325MG [[place] 1 tab PO TID 08/08/15 07/24/16 History 10-325] Metoprolol Succinate [Toprol XL] 25 mg PO BID 08/08/15 07/24/16 History Calcium Acetate [Phoslo] 667 mg PO TID 07/24/16 07/24/16 History Docusate [Colace] 100 mg PO BID 07/24/16 07/24/16 History Furosemide [Lasix] 60 mg PO DAILY 07/24/16 07/24/16 History Isosorbide Mononitrate ER [Imdur] 30 mg PO DAILY 07/24/16 07/24/16 History Allergies Allergy/AdvReac Type Severity Reaction Status Date / Time No Known Allergies Allergy Verified 07/24/16 19:59 Physical Exam Vitals: Vital Signs Temp Pulse Resp BP Pulse Ox 08/08/16 14:00 77 15 148/63 82 L 08/08/16 13:00 86 23 148/63 79 L 08/08/16 12:00 97.8 F 77 21 08/08/16 11:00 73 17 97 08/08/16 10:00 83 19 08/08/16 09:00 77 22 08/08/16 08:47 78 08/08/16 08:28 74 08/08/16 08:00 97.9 F 74 21 98 08/08/16 07:00 68 11 L 99 08/08/16 06:00 65 10 L 100 08/08/16 05:00 67 22 98 08/08/16 04:00 98.3 F 82 19 99 08/08/16 03:00 72 16 98 08/08/16 02:00 71 16 100 08/08/16 01:00 68 18 100 08/08/16 00:00 98.3 F 68 19 99 08/07/16 23:20 15 08/07/16 23:18 75 16 100 08/07/16 23:00 72 15 98 08/07/16 22:00 86 18 96 08/07/16 21:00 82 18 98 08/07/16 20:00 97.7 F 93 25 H 99 08/07/16 19:00 100 17 98 08/07/16 18:00 83 19 99 Intake and Output 08/08/16 08/08/16 08/08/16 06:59 14:59 22:59 Intake Total 44 342 Output Total 20 5 Balance 24 337 Intake: IV 24 12 Pressure Bag 24 12 Intake, IV Titration 20 80 Amount Sodium Chloride 0.9% 1, 20 80 000 ml @ 20 mls/hr IV . Q24H [facility] Rx#:[id number] Oral 250 Output: Urine 20 5 Other: Voiding Method Indwelling Catheter Indwelling Catheter Weight 83.1 kg Patient Weight 08/09/16 06:59 Weight 83.1 kg ABP, PAP, CO, CI - Last 8 Hours Arterial Blood Pressure 156/51 Arterial Blood Pressure 141/46 Arterial Blood Pressure 143/44 Skin: Good color, texture, turgor. General: Overweight and comfortable appearance. Fatigued affect. Head: Normocephalic, atraumatic. Eyes: Symmetric. Pupils equal round. Ears: Symmetric. Hearing within normal limits. Mouth: Clear. Neck: Supple. Carotid without bruit. Cardiac: Regular rate and rhythm. Midline wound clean and dressed and did not examine closely as being followed by surgeon. Lungs: Clear anteriorly and posteriorly. Abdomen: Soft active nontender. Left foot and heel lean and dressed with Javier wraps and an air boot. Extremities: Normal tone. Neurological: Mental status: Alert, cooperative, pleasant. Cranial nerves: Symmetric facial tone and trapezius. Motor: Able to elevate the forearms and hands off of bed but not really the elbows or either leg. Sensation: Intact throughout. DTRs: Symmetric and equal throughout. Mobility: Total assistance for any bed mobility. Results CBC & Chem 7: 08/08/16 04:25 08/08/16 04:25 Labs: Abnormal Lab Results - Last 24 Hours (Table) 08/07/16 08/07/16 08/08/16 Range/Units 17:41 22:25 04:25 WBC 11.4 H (3.8-10.6) k/uL RBC 3.03 L (4.30-5.90) m/uL Hgb 9.3 L (13.0-17.5) gm/dL Hct 28.9 L (39.0-53.0) % RDW 18.9 H (11.5-15.5) % Neutrophils # 10.5 H (1.3-7.7) k/uL Lymphocytes # 0.3 L (1.0-4.8) k/uL BUN (9-20) mg/dL Creatinine (0.66-1.25) mg/dL Glucose (74-99) mg/dL POC Glucose (mg/dL) 116 H 113 H (75-99) mg/dL Phosphorus (2.5-4.5) mg/dL Magnesium (1.6-2.3) mg/dL AST (17-59) U/L Alkaline Phosphatase (38-126) U/L Albumin (3.5-5.0) g/dL 08/08/16 08/08/16 08/08/16 Range/Units 04:25 07:23 12:12 WBC (3.8-10.6) k/uL RBC (4.30-5.90) m/uL Hgb (13.0-17.5) gm/dL Hct (39.0-53.0) % RDW (11.5-15.5) % Neutrophils # (1.3-7.7) k/uL Lymphocytes # (1.0-4.8) k/uL BUN 52 H (9-20) mg/dL Creatinine 3.10 H (0.66-1.25) mg/dL Glucose 132 H (74-99) mg/dL POC Glucose (mg/dL) 119 H 128 H (75-99) mg/dL Phosphorus 4.6 H (2.5-4.5) mg/dL Magnesium 2.4 H (1.6-2.3) mg/dL AST 70 H (17-59) U/L Alkaline Phosphatase 150 H (38-126) U/L Albumin 3.3 L (3.5-5.0) g/dL Chest x-ray: report reviewed (Serial chest x-rays followed for an atelectasis and effusions.) Assessment and Plan (1) Non-STEMI (non-ST elevated myocardial infarction) Status: Acute (2) Status post aorto-coronary artery bypass graft Status: Acute Plan: Impression: 1. Cardiac debility. 2. Non-STEMI. 3. Status post cardiac revascularizations. 4. Chronic kidney disease requiring hemodialysis. 5. Generalized weakness. 6. Cardiac disease including history of VA. 7. Hypertension. 8. Hyperlipidemia. 9. Rheumatoid and osteoarthritis. 10. Congestive heart failure. Comments and plan: At this time PT, OT, PERSONAL CARE WORKER ongoing. Endurance currently quite poor. Follow with yourself but currently would require 24/7 multiple persons care.
[2016-08-08] MEDS: DARBEPOETIN ALFA 40 MCG/0.4 ML SYRINGE SQ SCH (17:24)
[2016-08-08 18:14] LABS: Glucose,Whole Blood 112 mg/dL (75-99)
[2016-08-08] MEDS ORDERED: GELATIN SPONGE,ABSORB (SMALL) 1 EACH SPONGE ONE (20:30)
[2016-08-08 21:09] LABS: Glucose,Whole Blood 160 mg/dL (75-99)
--- NOTE | 2016-08-08 21:31 | P.PN ---
Subjective Principal diagnosis: Status post CABG, renal failure and renal failure This is 80-year-old gentleman with history of chronic renal failure on dialysis , seemed to be feeling better today. Patient was without any BiPAP overnight. He seemed to be little more alert. A chest x-ray showed clearing of CHF. His rhythm is sinus. overall his mental status showed improvement. Patient is maintaining sinus rhythm. Patient continues to be on hemodialysis. He seemed to be more optimistic and more responsive. Denies any chest pain. Chest x-ray shows right lower lobe infiltrate/effusion which is stable. Patient is currently on bronchodilators and Zosyn. His creatinine is 3.1 Objective - Vital Signs Vital signs: Vital Signs Temp 97.4 F L 08/08/16 20:00 Pulse 86 08/08/16 21:00 Resp 13 08/08/16 21:00 BP 118/52 08/08/16 21:00 Pulse Ox 99 08/08/16 20:00 Intake & Output 08/08/16 08/08/16 08/09/16 06:59 18:59 06:59 Intake Total 136 913.0 25 Output Total 30 65 0 Balance 106 848.0 25 Weight 83.1 kg Intake: IV 36 18 Pressure Bag 36 18 Intake, IV Titration 100 270.0 Amount Piperacillin-Tazobactam 3 50.0 .375 gm In Dextrose/Water 1 50ml.bag @ 12.5 mls/hr IVPB Q12HR [facility] Rx#: [id number] Sodium Chloride 0.9% 1, 100 220 000 ml @ 20 mls/hr IV . Q24H [facility] Rx#:[id number] Oral 625 25 Output: Urine 30 65 0 Other: Voiding Method Indwelling Catheter Indwelling Catheter Indwelling Catheter # Voids 0 ABP, PAP, CO, CI - Last Documented Arterial Blood Pressure 156/51 Pulmonary Artery Pressure 40/30 Cardiac Output 6.4 Cardiac Index 3.3 - Exam GENERAL EXAM: Patient is alert and oriented and doesn't appear to be in any acute distress HEENT: Normocephalic. Normal reaction of pupils, equal size, normal range of extraocular motion. No erythema or exudates in the throat. NECK: No masses, no nuchal rigidity. CHEST: No chest wall deformity. LUNGS: Seem to be clear. HEART: S1 and S2 normal with no audible mumurs or gallops. Regular rhythm, . ABDOMEN: No hepatosplenomegaly, normal bowel sounds, no guarding or rigidity. SKIN: No rashes CENTRAL NERVOUS SYSTEM: Much more alert. EXTREMITIES: No cyanosis, clubbing or edema. - Labs CBC & Chem 7: 08/08/16 04:25 08/08/16 04:25 Labs: Abnormal Lab Results - Last 24 Hours (Table) 08/07/16 08/08/16 08/08/16 Range/Units 22:25 04:25 04:25 WBC 11.4 H (3.8-10.6) k/uL RBC 3.03 L (4.30-5.90) m/uL Hgb 9.3 L (13.0-17.5) gm/dL Hct 28.9 L (39.0-53.0) % RDW 18.9 H (11.5-15.5) % Neutrophils # 10.5 H (1.3-7.7) k/uL Lymphocytes # 0.3 L (1.0-4.8) k/uL BUN 52 H (9-20) mg/dL Creatinine 3.10 H (0.66-1.25) mg/dL Glucose 132 H (74-99) mg/dL POC Glucose (mg/dL) 113 H (75-99) mg/dL Phosphorus 4.6 H (2.5-4.5) mg/dL Magnesium 2.4 H (1.6-2.3) mg/dL AST 70 H (17-59) U/L Alkaline Phosphatase 150 H (38-126) U/L Albumin 3.3 L (3.5-5.0) g/dL 08/08/16 08/08/16 08/08/16 Range/Units 07:23 12:12 17:01 WBC (3.8-10.6) k/uL RBC (4.30-5.90) m/uL Hgb (13.0-17.5) gm/dL Hct (39.0-53.0) % RDW (11.5-15.5) % Neutrophils # (1.3-7.7) k/uL Lymphocytes # (1.0-4.8) k/uL BUN (9-20) mg/dL Creatinine (0.66-1.25) mg/dL Glucose (74-99) mg/dL POC Glucose (mg/dL) 119 H 128 H 112 H (75-99) mg/dL Phosphorus (2.5-4.5) mg/dL Magnesium (1.6-2.3) mg/dL AST (17-59) U/L Alkaline Phosphatase (38-126) U/L Albumin (3.5-5.0) g/dL 08/08/16 Range/Units 21:08 WBC (3.8-10.6) k/uL RBC (4.30-5.90) m/uL Hgb (13.0-17.5) gm/dL Hct (39.0-53.0) % RDW (11.5-15.5) % Neutrophils # (1.3-7.7) k/uL Lymphocytes # (1.0-4.8) k/uL BUN (9-20) mg/dL Creatinine (0.66-1.25) mg/dL Glucose (74-99) mg/dL POC Glucose (mg/dL) 160 H (75-99) mg/dL Phosphorus (2.5-4.5) mg/dL Magnesium (1.6-2.3) mg/dL AST (17-59) U/L Alkaline Phosphatase (38-126) U/L Albumin (3.5-5.0) g/dL Assessment and Plan (1) Status post aorto-coronary artery bypass graft Status: Acute (2) End-stage renal disease on hemodialysis Status: Acute (3) Hyperlipidemia Status: Acute (4) Hypertension Status: Acute (5) Non-STEMI (non-ST elevated myocardial infarction) Status: Acute Plan: Overall patient clinical status shows improvement. Patient will continue current management. Probable transfer the patient to selective care unit in the next 24 hours. Advance diet as tolerated
[2016-08-08] MEDS: SENNOSIDES-DOCUSATE SODIUM 1 EACH TAB PO SCH (21:45)
[2016-08-08] MEDS: HYDROcodone/APAP 5-325MG 1 EACH TAB PO PRN (21:47)
[2016-08-09] MEDS: HEPARIN SODIUM,PORCINE 5,000 UNIT/ML 1 ML VIAL SQ SCH ×4 (00:02→23:37)
[2016-08-09 07:20] LABS: Glucose,Whole Blood 98 mg/dL (75-99)
--- NOTE | 2016-08-09 07:43 | PN ---
DATE OF SERVICE: 08/08/2016 This 80-year-old gentleman who was admitted after CAD, CABG also had acute respiratory failure. The patient 's sensorium is improving significantly, patient still confused. Seen and evaluated the patient along with the nurse practitioner. Please refer to nurse practitioner notes and impression documented for further information. Currently on hemodialysis. Further recommendations to follow.
[2016-08-09 07:47] LABS: Anisocytosis Slight; Basophils % (A) 0 %; CHCM 31.8; Eosinophils # (A) 0.1 k/uL (0-0.7); Eosinophils % (A) 1 %; HCT 30.2 % (39.0-53.0); HDW 3.28; HGB 9.6 gm/dL (13.0-17.5); Hypochromasia Slight; Luc # (Auto) 0.13; Luc % (Auto) 1; Lymphocytes # (A) 0.6 k/uL (1.0-4.8); Lymphocytes % (A) 6 %; MCH 30.2 pg (25.0-35.0); MCHC 31.8 g/dL (31.0-37.0); Macrocytosis Slight; Mean Platelet Volume 8.4; Monocytes # (A) 0.5 k/uL (0-1.0); Monocytes % (A) 4 %; Neutrophils # (A) 9.7 k/uL (1.3-7.7); Neutrophils % (A) 88 %; RBC 3.17 m/uL (4.30-5.90); RDW 18.4 % (11.5-15.5); WBC 11.1 k/uL (3.8-10.6); WBC (Perox) 11.48
--- NOTE | 2016-08-09 08:02 | P.PN ---
Subjective Patient seen in follow-up for end-stage renal disease. He is maintained on hemodialysis on a Friday schedule. He was extubated August 04 and is currently on a nasal cannula. He's been undergoing dialysis almost on a daily basis and had 1.5 L ultrafiltration yesterday. He underwent 2 bronchoscopies this admission revealing left lung bleeding. Bronchial washings positive for Pseudomonas. He's been more alert today compared to yesterday and is communicating well. Hemodynamically stable. He is now starting to tolerate oral intake. Vital signs are stable. General: The patient appeared well nourished and normally developed. HEENT: Head exam is unremarkable. Neck is without jugular venous distension. LUNGS: Diffuse rhonchi. Breath sounds decreased. HEART: Rate and Rhythm are regular. First and second heart sounds normal. No murmurs, rubs or gallops. ABDOMEN: Abdominal exam reveals normal bowel sounds. Non-tender and non- distended. No evidence of peritonitis. EXTREMITITES: Trace edema. Objective - Vital Signs Vital signs: Vital Signs Temp 97.9 F 08/09/16 04:00 Pulse 80 08/09/16 07:00 Resp 12 08/09/16 07:00 BP 93/48 08/09/16 07:00 Pulse Ox 98 08/09/16 07:00 Intake & Output 08/08/16 08/09/16 08/09/16 18:59 06:59 18:59 Intake Total 913.0 55 Output Total 65 0 Balance 848.0 55 Weight 83.1 kg Intake: IV 18 Pressure Bag 18 Intake, IV Titration 270.0 Amount Piperacillin-Tazobactam 3 50.0 .375 gm In Dextrose/Water 1 50ml.bag @ 12.5 mls/hr IVPB Q12HR [facility] Rx#: [id number] Sodium Chloride 0.9% 1, 220 000 ml @ 20 mls/hr IV . Q24H [facility] Rx#:[id number] Oral 625 55 Output: Urine 65 0 Other: Voiding Method Indwelling Catheter Indwelling Catheter # Voids 0 ABP, PAP, CO, CI - Last Documented Arterial Blood Pressure 156/51 Pulmonary Artery Pressure 40/30 Cardiac Output 6.4 Cardiac Index 3.3 - Labs CBC & Chem 7: 08/09/16 07:35 08/08/16 04:25 Labs: Abnormal Lab Results - Last 24 Hours (Table) 08/08/16 08/08/16 08/08/16 Range/Units 12:12 17:01 21:08 WBC (3.8-10.6) k/uL RBC (4.30-5.90) m/uL Hgb (13.0-17.5) gm/dL Hct (39.0-53.0) % RDW (11.5-15.5) % Neutrophils # (1.3-7.7) k/uL Lymphocytes # (1.0-4.8) k/uL POC Glucose (mg/dL) 128 H 112 H 160 H (75-99) mg/dL 08/09/16 Range/Units 07:35 WBC 11.1 H (3.8-10.6) k/uL RBC 3.17 L (4.30-5.90) m/uL Hgb 9.6 L (13.0-17.5) gm/dL Hct 30.2 L (39.0-53.0) % RDW 18.4 H (11.5-15.5) % Neutrophils # 9.7 H (1.3-7.7) k/uL Lymphocytes # 0.6 L (1.0-4.8) k/uL POC Glucose (mg/dL) (75-99) mg/dL Assessment and Plan Plan: Assessment: #1. End-stage renal disease maintained on hemodialysis on a Friday schedule via left upper extremity AV graft. #2. 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 #3. Left lung blood clots status post bronchoscopy 2. #4. Anemia. Hemoglobin 9.6 today. Plan: Hemodialysis tomorrow with goal 2-3 L ultrafiltration as blood pressure tolerates. Hold off on dialysis today - he could not tolerate significant ultrafiltration yesterday due to hypotension. Maintain Aranesp. Continue antibiotics. Continue with physical therapy.
[2016-08-09 08:11] LABS: Magnesium 2.2 mg/dL (1.6-2.3); Phosphorous 4.4 mg/dL (2.5-4.5); Potassium 3.8 mmol/L (3.5-5.1); Total Bilirubin 1.2 mg/dL (0.2-1.3); Total Protein 6.8 g/dL (6.3-8.2)
--- NOTE | 2016-08-09 08:12 | XR ---
EXAMINATION TYPE: XR chest 1V portable DATE OF EXAM: 08/09/2016 6:34 AM COMPARISON: Prior chest x-ray July HISTORY: Status post coronary artery bypass graft TECHNIQUE: Single frontal view of the chest is obtained. FINDINGS: Similar findings. Right-sided PICC line, overlying cardiac leads, post median sternotomy c hange again noted. There is some improvement in visualization of the right hemidiaphragm, basilar den sity persists. No evident pneumothorax. Heart remains enlarged. Interstitium and aeration is improved . IMPRESSION: Improvement in aeration, volume status. Persistent effusions, atelectasis or edema suspe cted. Correlate to exclude pneumonia.
--- NOTE | 2016-08-09 08:17 | P.PN ---
Subjective Progress note dated 08/06/2016 This is a 80-year-old male who was extubated a couple days ago. I believe [id number].The patient has primarily been on BiPAP dependent since that time.Thepatient'iTeSSEsqt[id number]%. HisIVis0.6tu28lYhhffwv.He is getting vital high protein at 30 with a goal of 30.DqqybkhnhlwhdlgstoaypgjacqzwubapMvnde11nra3.7Loffluidwasremoved.Hischestx- raysimproved.Heisapparentlygoingtohavehemodialysisagaintoday.I' mnotsurewhattheplanisfor.Hedidnothavebloodgasestoday. HeremainsonZosynforthePseudomonasrecoveredhisbronchialwash.AgainasImentionhische stx - raysimproved.Wearegoingtotryhimonsomenasalprongstoday.Helookslikehemightbeableto tolerateit. Progress note dated 08/07/2016 This is a 80-year-old male who was extubated on Friday evening. The patient is doing relatively well although for the first couple of days post extubation, he was BiPAP dependent. Yesterday we were able to transition him to nasal cannula. He is doing well. Did not need BiPAP all of last night. He is much more awake and alert. He is scheduled for hemodialysis. He's had hemodialysis last 2 days. Again he is much more awake and alert. Currently he is on O2 at 2 L. Not requiring BiPAP. He is getting appointment 9 IV at 20 mL an hour he is going to get hemodialysis today. Other than that things are going reasonably well but I think this patient should stay in the ICU for at least another day or so. Progress note dated 08/09/2016 80-year-old male who was extubated last Friday. Doing relatively well. He is status post two-vessel bypass grafting off pump. The patient really making some nice progress. Feeling much better. Looks much better. The patient just on O2 at 4 L. Not getting any additional IV fluids. My opinion the patient could be transferred out to the sixth floor. He has been getting daily hemodialysis. His chest x-rays. His respiratory status is significantly improved. Objective - Vital Signs Vital signs: Vital Signs Temp 97.9 F 08/09/16 04:00 Pulse 80 08/09/16 07:00 Resp 12 08/09/16 07:00 BP 93/48 08/09/16 07:00 Pulse Ox 98 08/09/16 07:00 Intake & Output 08/08/16 08/09/16 08/09/16 18:59 06:59 18:59 Intake Total 913.0 55 Output Total 65 0 Balance 848.0 55 Weight 83.1 kg Intake: IV 18 Pressure Bag 18 Intake, IV Titration 270.0 Amount Piperacillin-Tazobactam 3 50.0 .375 gm In Dextrose/Water 1 50ml.bag @ 12.5 mls/hr IVPB Q12HR [facility] Rx#: [id number] Sodium Chloride 0.9% 1, 220 000 ml @ 20 mls/hr IV . Q24H [facility] Rx#:[id number] Oral 625 55 Output: Urine 65 0 Other: Voiding Method Indwelling Catheter Indwelling Catheter # Voids 0 ABP, PAP, CO, CI - Last Documented Arterial Blood Pressure 156/51 Pulmonary Artery Pressure 40/30 Cardiac Output 6.4 Cardiac Index 3.3 - Exam No acute distress currently. The patient is on nasal O2. He is much more awake today. HEENT examination is grossly unremarkable. Mucous membranes are moist. Neck supple. Full range of motion. No adenopathy. Cardio vascular examination reveals regular rhythm rate. S1-S2 normal. No distinct murmur noted. Lungs reveal few scattered rhonchi. Breath sounds are diminished. A few crackles noted as well. Breath sounds are generally diminished. Abdomen soft bowel sounds are heard. Extremities are intact. No obvious edema. Neurologic examination is brief but nonfocal Skin without rash or lesion. - Labs CBC & Chem 7: 08/09/16 07:35 08/08/16 04:25 Labs: Abnormal Lab Results - Last 24 Hours (Table) 08/08/16 08/08/16 08/08/16 Range/Units 12:12 17:01 21:08 WBC (3.8-10.6) k/uL RBC (4.30-5.90) m/uL Hgb (13.0-17.5) gm/dL Hct (39.0-53.0) % RDW (11.5-15.5) % Neutrophils # (1.3-7.7) k/uL Lymphocytes # (1.0-4.8) k/uL POC Glucose (mg/dL) 128 H 112 H 160 H (75-99) mg/dL 08/09/16 Range/Units 07:35 WBC 11.1 H (3.8-10.6) k/uL RBC 3.17 L (4.30-5.90) m/uL Hgb 9.6 L (13.0-17.5) gm/dL Hct 30.2 L (39.0-53.0) % RDW 18.4 H (11.5-15.5) % Neutrophils # 9.7 H (1.3-7.7) k/uL Lymphocytes # 0.6 L (1.0-4.8) k/uL POC Glucose (mg/dL) (75-99) mg/dL Assessment and Plan (1) End-stage renal disease on hemodialysis Status: Acute (2) Hyperlipidemia Status: Acute (3) Hypertension Status: Acute (4) Non-STEMI (non-ST elevated myocardial infarction) Status: Acute (5) Status post aorto-coronary artery bypass graft Status: Acute (6) Diabetic foot ulcer associated with type 2 diabetes mellitus Status: Acute (7) End stage renal disease on dialysis due to type 2 diabetes mellitus Status: Acute Plan: Plan dated 08/06/2016 The patient will be trialed on some nasal prongs. We'll see if he can come off the BiPAP. Labs x-rays a medications are all reviewed. His chest chest x-ray today looks better than it did yesterday. The patient's currently going to get hemodialysis today. Received hemodialysis yesterday. Currently receiving vital high protein for nutrition at 30 with a goal of 30. He is getting appointment 9 IV at 20. Additional recommendations suggestions are forthcoming. More than 30 minutes was spent with this patient. Plan dated 08/07/2016 The patient is doing better. Much more awake and alert. Did not require BiPAP last night. Currently on O2 at 2 L. We'll continue to get him up in a chair today. He'll continue getting his hemodialysis. We'll see if we can get the NG tube out of him today and feeding him orally. He will have a swallow evaluation. Physical therapy is working with him currently. Plan dated 08/09/2016 The patient's doing much better. DC. He can be transferred out to [address] [place] [address]. We'll let cardiothoracic surgery no. Chest x-rays improved. Volume status is much improved. Respiratory status is stable. Has not required BiPAP. Hemodynamically he is very stable. Doing very well. We'll continue to follow. Time with Patient: Less than 30
--- NOTE | 2016-08-09 08:40 | P.PN ---
Subjective Date of service 08/08/2016 Progress note being dictated for . Interval history: This a 80-year-old gentleman status post CABG, pulmonary edema , end-stage renal disease on hemodialysis, and left mainstem bronchus blood clots leading to left lung collapse, status post bronchoscopy and multiple other medical issues. Mildly Confused but sensorium continues to improve .Scheduled for hemodialysis today. Maintained on nebulized bronchodilators, Zosyn. Improving on incentive spirometer, up to 1000. Chest x-ray reporting right lower lobe infiltrate/effusion. Maintaining O2 sats of 94 L nasal cannula .Telemetry sinus rhythm. Patient confused , review of systems cannot be completed. A Active Medications Generic Name Dose Route Start Last Admin Trade Name Freq PRN Reason Stop Dose Admin Hydrocodone Bitart/Acetaminophen 2 each 07/30/16 13:06 08/05/16 21:46 [place] 5-325 PO 2 each Q4HR PRN Administration Severe Pain Hydrocodone Bitart/Acetaminophen 1 each 07/30/16 13:06 [place] 5-325 PO Q4HR PRN Moderate Pain Albuterol/Ipratropium 3 ml 07/30/16 13:08 Duone[place] 0.5 Mg-3 Mg/3 Ml Soln INHALATION RT-Q2H PRN Shortness Of Breath Or Wheezing Albuterol/Ipratropium 3 ml 08/05/16 12:00 08/07/16 11:55 Duoneb 0.5 Mg-3 Mg/3 Ml Soln INHALATION 3 ml RT-QID RINA Administration Amiodarone HCl 200 mg 08/02/16 21:00 08/07/16 08:35 Cordarone PO 200 mg BID RINA Administration Aspirin 81 mg 07/30/16 09:14 08/07/16 08:35 Aspirin PO 81 mg DAILY RINA Administration Atorvastatin Calcium 40 mg 07/30/16 09:00 08/07/16 08:34 Lipitor PO 40 mg DAILY RINA Administration Benzocaine/Menthol 1 each 07/29/16 13:32 Cepacol Lozenge MUCOUS MEM Q2H PRN Sore Throat Bisacodyl 10 mg 07/30/16 13:07 Dulcolax RECTAL DAILY PRN Constipation Calcium Acetate 667 mg 08/03/16 07:30 08/07/16 14:12 Phoslo PO 667 mg TID-W/MEALS RINA Administration Darbepoetin Kevin 40 mcg 08/01/16 15:00 08/01/16 15:49 Aranesp SQ 40 mcg Q7D RINA Administration Dexamethasone Sodium Phosphate 4 mg 08/04/16 21:00 08/07/16 08:35 Decadron IV 4 mg Q12HR RINA Administration Diphenoxylate HCl/Atropine 2.5 ml 08/07/16 13:49 08/07/16 14:50 Lomotil Oral Soln PO 2.5 ml QID PRN Administration Diarrhea Folic Acid 1 mg 08/03/16 12:00 08/07/16 14:12 Folic Acid PO 1 mg DAILY@1200 RINA Administration Heparin Sodium (Porcine) 5,000 unit 07/29/16 22:00 08/07/16 08:34 Heparin SQ 5,000 unit Q8HR RINA Administration Hydralazine HCl 10 mg 08/03/16 21:54 08/06/16 10:27 Apresoline IVP 10 mg Q6HR PRN Administration Blood Pressure - High Sodium Chloride 1,000 mls @ 20 mls/hr 08/01/16 19:45 08/06/16 17:29 Saline 0.9% IV 20 mls/hr .Q24H RINA Administration Piperacillin/Tazobactam/ 50 mls @ 12.5 mls/hr 08/02/16 14:00 08/07/16 10:37 Dextrose 3.375 gm/ IV Solution IVPB 12.5 mls/hr Q12HR RINA Administration Insulin Human Lispro 0 unit 08/07/16 17:30 Humalog SQ [facility] Protocol Lisinopril 10 mg 08/05/16 09:00 08/07/16 08:35 Zestril PO 10 mg DAILY RINA Administration Magnesium Hydroxide 2,400 mg 07/30/16 13:07 Milk Of Magnesia PO BID PRN Constipation Metoclopramide HCl 10 mg 07/29/16 13:32 Reglan IVP Q4H PRN Nausea And Vomiting Metoprolol Tartrate 25 mg 08/07/16 09:00 08/07/16 08:36 Lopressor PO 25 mg BID RINA Administration Miscellaneous Information 1 each 07/29/16 13:32 Magnesium Per Protocol MISCELLANE DAILY PRN Per Protocol Protocol Miscellaneous Information 1 each 07/29/16 13:32 Phosphorus Per Protocol MISCELLANE DAILY PRN Per Protocol Protocol Miscellaneous Information 1 each 07/29/16 13:32 Potassium Per Protocol MISCELLANE DAILY PRN Per Protocol Protocol Ondansetron HCl 4 mg 07/29/16 13:32 Zofran IVP Q6HR PRN Nausea And Vomiting Pantoprazole Sodium 40 mg 07/30/16 09:00 08/07/16 08:35 Protonix IVP 40 mg DAILY RINA Administration Senna/Docusate Sodium 2 each 07/30/16 21:00 08/06/16 22:23 Senokot-S PO Not Given HS RINA Sodium Chloride 10 ml 07/29/16 21:00 08/07/16 10:17 Saline Flush IV 10 ml BID RINA Administration Sodium Chloride 20 ml 08/02/16 14:57 Saline Flush IV Q4HR PRN PICC Line Sodium Chloride 10 ml 08/09/16 09:00 Saline Flush IV WEEKLY RINA Sodium Chloride 10 ml 08/02/16 14:57 Saline Flush IV Q4HR PRN PICC Line Objective - Vital Signs Vital signs: Vital Signs Temp 98.3 F 08/08/16 16:00 Pulse 83 08/08/16 17:00 Resp 8 L 08/08/16 17:00 BP 119/57 08/08/16 17:00 Pulse Ox 99 08/08/16 17:00 Intake & Output 08/07/16 08/08/16 08/08/16 18:59 06:59 18:59 Intake Total 806 136 553 Output Total 68 30 65 Balance 738 106 488 Weight 83.1 kg 83.1 kg Intake: IV 36 36 18 Pressure Bag 36 36 18 Intake, IV Titration 240 100 160 Amount Sodium Chloride 0.9% 1, 240 100 160 000 ml @ 20 mls/hr IV . Q24H RINA Rx#:[id number] Oral 375 Tube Feeding 500 Other 30 Output: Urine 68 30 65 Other: Voiding Method Indwelling Catheter Indwelling Catheter Indwelling Catheter # Bowel Movements 1 ABP, PAP, CO, CI - Last Documented Arterial Blood Pressure 156/51 Pulmonary Artery Pressure 40/30 Cardiac Output 6.4 Cardiac Index 3.3 - Exam PHYSICAL EXAM: VITAL SIGNS: As above GENERAL: [Sitting up in bed, weak, drowsy, conversing a little more with family ] HEENT: [Pupils equal, sluggish, conjunctiva normal.] NECK: [Supple, no JVD] RESPIRATORY EFFORT:[Increased] LUNGS: Shallow breaths, diminished , Bibasilar crackles, no rhonchi, no wheezes. ] CARDIOVASCULAR[regular S1 and S2, no murmurs rubs or gallops, positive edema] GI: [Abdomen soft, nontender, positive bowel sounds.] SKIN: Skin tear left upper arm near dialysis catheter/shunt., NEURO: As mentioned above drowsy, but alert and oriented 2, attempting to answer simple questions, moves all 4 extremities, extremely weak. Microbiology 07/31/16 05:55 Blood Blood Culture - Final No Growth after 144 hours 07/31/16 05:55 Blood Blood Culture - Final No Growth after 144 hours 08/01/16 16:15 Bronchial Washings - Left Gram Stain - Final 08/01/16 16:15 Bronchial Washings - Left Bronchial Washings Culture - Final Pseudomonas aeruginosa 08/01/16 16:15 Bronchial Washings - Left Acid Fast Bacilli Smear - Final 08/01/16 16:15 Bronchial Washings - Left Acid Fast Bacilli Culture - Preliminary 08/01/16 16:15 Bronchial Washings - Left Fungal Culture - Preliminary 07/25/16 20:46 Urine,Voided Urine Culture - Final - Labs CBC & Chem 7: 08/09/16 07:35 08/09/16 07:35 Labs: Abnormal Lab Results - Last 24 Hours (Table) 08/07/16 08/07/16 08/08/16 Range/Units 17:41 22:25 04:25 WBC 11.4 H (3.8-10.6) k/uL RBC 3.03 L (4.30-5.90) m/uL Hgb 9.3 L (13.0-17.5) gm/dL Hct 28.9 L (39.0-53.0) % RDW 18.9 H (11.5-15.5) % Neutrophils # 10.5 H (1.3-7.7) k/uL Lymphocytes # 0.3 L (1.0-4.8) k/uL BUN (9-20) mg/dL Creatinine (0.66-1.25) mg/dL Glucose (74-99) mg/dL POC Glucose (mg/dL) 116 H 113 H (75-99) mg/dL Phosphorus (2.5-4.5) mg/dL Magnesium (1.6-2.3) mg/dL AST (17-59) U/L Alkaline Phosphatase (38-126) U/L Albumin (3.5-5.0) g/dL 08/08/16 08/08/16 08/08/16 Range/Units 04:25 07:23 12:12 WBC (3.8-10.6) k/uL RBC (4.30-5.90) m/uL Hgb (13.0-17.5) gm/dL Hct (39.0-53.0) % RDW (11.5-15.5) % Neutrophils # (1.3-7.7) k/uL Lymphocytes # (1.0-4.8) k/uL BUN 52 H (9-20) mg/dL Creatinine 3.10 H (0.66-1.25) mg/dL Glucose 132 H (74-99) mg/dL POC Glucose (mg/dL) 119 H 128 H (75-99) mg/dL Phosphorus 4.6 H (2.5-4.5) mg/dL Magnesium 2.4 H (1.6-2.3) mg/dL AST 70 H (17-59) U/L Alkaline Phosphatase 150 H (38-126) U/L Albumin 3.3 L (3.5-5.0) g/dL Assessment and Plan Plan: 1. Acute hypoxic respiratory failure status post CABG secondary to pulmonary edema, status post BiPAP dependent. 2. [CKD, end-stage on HD]. 3. [Acute non-STEMI with acute exacerbation Mild left ventricular dysfunction with systolic CHF dysfunction]. 4. [Mild aortic stenosis]. 5. [Hypertension]. 6. [Hyperlipidemia]. 7. [CAD status post CABG]. 8. Rheumatoid arthritis 9. Metabolic bone disease 10. Hyperphosphatemia secondary to end-stage renal disease 11. Anemia of chronic kidney disease 12. Hyponatremia, hypovolemic 13. Possible pneumonia, left lower lobe, status post bronchoscopy reporting pseudomonas aeruginosa. 14. Left mainstem bronchus blood clots leading to left lung collapse, status post bronchoscopy 15. Hypoalbuminemia Plan: Continue with current medication regime , amiodarone, metoprolol, statin, ETELVINA inhibitor, monitoring and symptomatic treatment. PT/OT. Renal consult in place. Continues to be extremely weak. Swallow evaluation as per speech therapy .Aggressive pulmonary toileting. Continues on nebulized bronchodilators , steroids .Prognosis guarded given multiple complex medical issues. Further recommendations to follow The impression and plan of care has been dictated as directed. : I performed a H&P examination of this patient and discussed the same with the dictator. I agree with the dictator's note. Any additional findings/opinions/ etc. will be noted.
[2016-08-09] MEDS: CALCIUM ACETATE 667 MG CAP PO SCH ×3 (09:19→17:55)
[2016-08-09] MEDS: PANTOPRAZOLE 40 MG/10 ML VIAL IVP SCH (09:19)
[2016-08-09] MEDS: INSULIN LISPRO (humaLOG) 300 UNIT/3 ML VIAL SQ SCH ×4 (09:19→21:45)
[2016-08-09] MEDS: AMIODARONE 200 MG TAB PO SCH ×2 (09:19→21:44)
[2016-08-09] MEDS: LISINOPRIL 10 MG TAB PO SCH (09:20)
[2016-08-09] MEDS: ATORVASTATIN 40 MG TAB PO SCH (09:20)
[2016-08-09] MEDS: METOPROLOL TARTRATE 25 MG TAB PO SCH ×2 (09:20→21:44)
[2016-08-09] MEDS: ASPIRIN 81 MG CHEW PO SCH (09:20)
[2016-08-09] MEDS: PIPERACILLIN-TAZOBACTAM 3.375 GM in DEXTROSE/WATER 1 50ML.BAG IVPB SCH ×2 (09:22→21:44)
--- NOTE | 2016-08-09 09:22 | P.PN ---
Subjective Principal diagnosis: Non-ST elevation myocardial infarction. POD #11 non-aortic clamp off pump double coronary artery bypass grafting using the left internal mammary artery to the left anterior descending artery and reverse saphenous vein graft from the aorta to the posterior descending artery. Endoscopic harvesting of the right greater saphenous vein. Intraoperative transesophageal echocardiogram and epi-aortic scanning. Intraoperative graft flow measurements using the broadbandchoicesstim machine. Pt had intraparenchymal hemorrhage with increase oxygen demand after surgery requiring bronchoscopy. Bronchial washings demonstrate infection with pseudomonas, placed on IV zosyn, infectious disease following. The patient is currently sitting up in bed in no apparent distress, alert and oriented and following all commands, answering questions appropriately.. Generalized weakness present. Able to use incentive spirometry. Objective - Vital Signs Vital signs: Vital Signs Temp 97.9 F 08/09/16 04:00 Pulse 80 08/09/16 07:00 Resp 12 08/09/16 07:00 BP 93/48 08/09/16 07:00 Pulse Ox 98 08/09/16 07:00 Intake & Output 08/08/16 08/09/16 08/09/16 18:59 06:59 18:59 Intake Total 913.0 55 Output Total 65 0 Balance 848.0 55 Weight 83.1 kg Intake: IV 18 Pressure Bag 18 Intake, IV Titration 270.0 Amount Piperacillin-Tazobactam 3 50.0 .375 gm In Dextrose/Water 1 50ml.bag @ 12.5 mls/hr IVPB Q12HR RINA Rx#: [id number] Sodium Chloride 0.9% 1, 220 000 ml @ 20 mls/hr IV . Q24H RINA Rx#:[id number] Oral 625 55 Output: Urine 65 0 Other: Voiding Method Indwelling Catheter Indwelling Catheter # Voids 0 ABP, PAP, CO, CI - Last Documented Arterial Blood Pressure 156/51 Pulmonary Artery Pressure 40/30 Cardiac Output 6.4 Cardiac Index 3.3 - Constitutional General appearance: Present: cooperative, no acute distress - Respiratory Details: Lungs sounds diminished bilaterally. Respirations even, nonlabored. Currently on 4 L nasal cannula. Able to achieve 750 mL on his incentive spirometry. Effective cough. - Cardiovascular Details: S1, S2 present. Regular rate and rhythm, normal sinus rhythm on telemetry, no events noted on telemetry overnight. Continued nonpitting edema to his upper extremities. Sternum stable. Heart hugger placed patient was turned appropriate use. Teds/SCDs present. Right arm PICC line present. - Gastrointestinal Gastrointestinal Comment(s): Abdomen soft, nontender, nondistended. Active bowel sounds 4 quadrants. Tolerating soft diet. - Genitourinary Genitourinary Comment(s): Hemodialysis dependent, left upper extremity AV fistula with positive bruit, positive thrill. Receive dialysis yesterday, 1420 mL taken off. Sparks removed yesterday. - Integumentary Integumentary Comment(s): Anterior chest incision covered with dry intact silver dressing. Left upper extremity skin tear present, nursing changing dressing daily. - Musculoskeletal Musculoskeletal: Present: generalized weakness - Psychiatric Psychiatric: Present: A&O x's 3, appropriate affect, intact judgment & insight - Allied health notes Allied health notes reviewed: nursing - Labs CBC & Chem 7: 08/09/16 07:35 08/08/16 04:25 Labs: Abnormal Lab Results - Last 24 Hours (Table) 08/08/16 08/08/16 08/08/16 Range/Units 12:12 17:01 21:08 WBC (3.8-10.6) k/uL RBC (4.30-5.90) m/uL Hgb (13.0-17.5) gm/dL Hct (39.0-53.0) % RDW (11.5-15.5) % Neutrophils # (1.3-7.7) k/uL Lymphocytes # (1.0-4.8) k/uL POC Glucose (mg/dL) 128 H 112 H 160 H (75-99) mg/dL 08/09/16 Range/Units 07:35 WBC 11.1 H (3.8-10.6) k/uL RBC 3.17 L (4.30-5.90) m/uL Hgb 9.6 L (13.0-17.5) gm/dL Hct 30.2 L (39.0-53.0) % RDW 18.4 H (11.5-15.5) % Neutrophils # 9.7 H (1.3-7.7) k/uL Lymphocytes # 0.6 L (1.0-4.8) k/uL POC Glucose (mg/dL) (75-99) mg/dL - Imaging and Cardiology Chest x-ray: image reviewed Assessment and Plan (1) Non-STEMI (non-ST elevated myocardial infarction) Status: Acute (2) Hypertension Status: Acute (3) Hyperlipidemia Status: Acute (4) End-stage renal disease on hemodialysis Status: Acute Plan: 1. Continue aspirin, Lipitor, heparin SQ, lisinopril, lopressor. 2. Continue amiodarone for Afib prophylaxis. 3. PT/OT to work with patient, out of bed to chair today. If unable to get out of bed to chair, place bed in chair mode. 4. Continue Zosyn, ID following. 5. Encourage incentive spirometry use. 6. Will continue to monitor labs, chest x-rays. 7. Insulin management per primary service. 8. GI/DVT prophylaxis. 9. Wound care center called to replace patient's total contact cast so he is able to get out of bed to chair today. 10. Possible transfer to [facility] later today. 11. Case management for/social work on for discharge planning. Will need discharge to rehab facility. Time with Patient: Greater than 30
[2016-08-09] MEDS: IPRATROPIUM-ALBUTEROL 3 ML NEB INHALATION SCH ×4 (09:53→19:18)
[2016-08-09 10:47] LABS: INR 1.3 (<1.1); Partial Thromboplastin Time 46.6 sec (22.0-30.0)
[2016-08-09 11:50] LABS: Glucose,Whole Blood 108 mg/dL (75-99)
[2016-08-09] MEDS: HYDROcodone/APAP 5-325MG 1 EACH TAB PO PRN ×2 (12:16→16:20)
[2016-08-09] MEDS: FOLIC ACID 1 MG TAB PO SCH (12:17)
[2016-08-09] MEDS: DIPHENOX-ATROP 2.5-0.025MG/5ML 60 ML BOTTLE PO PRN ×2 (12:17→17:56)
--- NOTE | 2016-08-09 15:32 | P.PN ---
Subjective Date of service 08/09/2016 Progress note being dictated for . Interval history: This a 80-year-old gentleman status post CABG, pulmonary edema , end-stage renal disease on hemodialysis, and left mainstem bronchus blood clots leading to left lung collapse, status post bronchoscopy and multiple other medical issues. Much more alert today, Sensorium significantly improved. Has been receiving daily hemodialysis, with none scheduled for today. Maintained on nebulized bronchodilators, Zosyn.Incentive spirometer, up to 1000. Objective - Vital Signs Vital signs: Vital Signs Temp 98.5 F 08/09/16 08:00 Pulse 86 08/09/16 09:00 Resp 28 H 08/09/16 09:00 BP 104/44 08/09/16 09:00 Pulse Ox 97 08/09/16 08:00 Intake & Output 08/08/16 08/09/16 08/09/16 18:59 06:59 18:59 Intake Total 913.0 55 Output Total 65 0 Balance 848.0 55 Weight 83.1 kg Intake: IV 18 Pressure Bag 18 Intake, IV Titration 270.0 Amount Piperacillin-Tazobactam 3 50.0 .375 gm In Dextrose/Water 1 50ml.bag @ 12.5 mls/hr IVPB Q12HR RINA Rx#: [id number] Sodium Chloride 0.9% 1, 220 000 ml @ 20 mls/hr IV . Q24H RINA Rx#:[id number] Oral 625 55 Output: Urine 65 0 Other: Voiding Method Indwelling Catheter Indwelling Catheter Urinal # Voids 0 # Bowel Movements 1 ABP, PAP, CO, CI - Last Documented Arterial Blood Pressure 156/51 Pulmonary Artery Pressure 40/30 Cardiac Output 6.4 Cardiac Index 3.3 - Exam PHYSICAL EXAM: VITAL SIGNS: As above GENERAL: [Sitting up in bed, alert and oriented times to, no acute distress HEENT: [Pupils equal, sluggish, conjunctiva normal.] NECK: [Supple, no JVD] RESPIRATORY EFFORT:[Increased] LUNGS: Shallow breaths, diminished , Bibasilar crackles, no rhonchi, no wheezes. ] CARDIOVASCULAR[regular S1 and S2, no murmurs rubs or gallops, positive edema] GI: [Abdomen soft, nontender, positive bowel sounds NEURO: Gross neurologic examination did not reveal any focal deficits, moves all 4 extremities, extremely weak. Sensation intact 0 Microbiology 07/31/16 05:55 Blood Blood Culture - Final No Growth after 144 hours 07/31/16 05:55 Blood Blood Culture - Final No Growth after 144 hours 08/01/16 16:15 Bronchial Washings - Left Gram Stain - Final 08/01/16 16:15 Bronchial Washings - Left Bronchial Washings Culture - Final Pseudomonas aeruginosa 08/01/16 16:15 Bronchial Washings - Left Acid Fast Bacilli Smear - Final 08/01/16 16:15 Bronchial Washings - Left Acid Fast Bacilli Culture - Preliminary 08/01/16 16:15 Bronchial Washings - Left Fungal Culture - Preliminary 07/25/16 20:46 Urine,Voided Urine Culture - Final - Labs CBC & Chem 7: 08/09/16 07:35 08/09/16 07:35 Labs: Abnormal Lab Results - Last 24 Hours (Table) 08/08/16 08/08/16 08/09/16 Range/Units 17:01 21:08 07:35 WBC 11.1 H (3.8-10.6) k/uL RBC 3.17 L (4.30-5.90) m/uL Hgb 9.6 L (13.0-17.5) gm/dL Hct 30.2 L (39.0-53.0) % RDW 18.4 H (11.5-15.5) % Neutrophils # 9.7 H (1.3-7.7) k/uL Lymphocytes # 0.6 L (1.0-4.8) k/uL PT (9.0-12.0) sec APTT (22.0-30.0) sec Sodium (137-145) mmol/L Chloride (98-107) mmol/L BUN (9-20) mg/dL Creatinine (0.66-1.25) mg/dL POC Glucose (mg/dL) 112 H 160 H (75-99) mg/dL AST (17-59) U/L Albumin (3.5-5.0) g/dL 08/09/16 08/09/16 08/09/16 Range/Units 07:35 07:35 11:48 WBC (3.8-10.6) k/uL RBC (4.30-5.90) m/uL Hgb (13.0-17.5) gm/dL Hct (39.0-53.0) % RDW (11.5-15.5) % Neutrophils # (1.3-7.7) k/uL Lymphocytes # (1.0-4.8) k/uL PT 13.0 H (9.0-12.0) sec APTT 46.6 H (22.0-30.0) sec Sodium 134 L (137-145) mmol/L Chloride 97 L (98-107) mmol/L BUN 52 H (9-20) mg/dL Creatinine 3.16 H (0.66-1.25) mg/dL POC Glucose (mg/dL) 108 H (75-99) mg/dL AST 64 H (17-59) U/L Albumin 3.4 L (3.5-5.0) g/dL Assessment and Plan Plan: 1. Acute hypoxic respiratory failure status post CABG secondary to pulmonary edema, status post BiPAP dependent. 2. [CKD, end-stage on HD]. 3. [Acute non-STEMI with acute exacerbation Mild left ventricular dysfunction with systolic CHF dysfunction]. 4. [Mild aortic stenosis]. 5. [Hypertension]. 6. [Hyperlipidemia]. 7. [CAD status post CABG]. 8. Rheumatoid arthritis 9. Metabolic bone disease 10. Hyperphosphatemia secondary to end-stage renal disease 11. Anemia of chronic kidney disease 12. Hyponatremia, hypovolemic 13. Possible pneumonia, left lower lobe, status post bronchoscopy reporting pseudomonas aeruginosa. 14. Left mainstem bronchus blood clots leading to left lung collapse, status post bronchoscopy 15. Hypoalbuminemia Plan: Continue with current medication regime , amiodarone, metoprolol, statin, ETELVINA inhibitor, monitoring and symptomatic treatment. Cleared for transfer out of ICU to [facility] E. per both cardio thoracic surgery and restaurant cook. PT/OT. Dr. Brady consult in place with recommendations noted. Continues to be extremely weak. Aggressive pulmonary toileting. Continues on nebulized bronchodilators, steroids .Prognosis guarded given multiple complex medical issues. Further recommendations to follow The impression and plan of care has been dictated as directed. : I performed a H&P examination of this patient and discussed the same with the dictator. I agree with the dictator's note. Any additional findings/opinions/ etc. will be noted.
[2016-08-09] MEDS: NYSTATIN 100,000 UNIT/ML SUSP 500,000 UNIT/5 ML CUP PO SCH ×3 (16:21→21:43)
--- NOTE | 2016-08-09 16:27 | P.PN ---
Subjective Principal diagnosis: S/P CABG This is a pleasant 80-year-old gentleman with a history of hypertension, ischemic heart disease and mild aortic stenosis who was admitted to [facility] with complaints of shortness of breath and cough as well as mild shoulder discomfort. His troponin levels were found to be positive for a non- ST elevation myocardial infarction with EKG showing T-wave changes in the anterolateral leads. Echocardiogram was reported as showing an ejection fraction of 45% and evidence of mild to moderate aortic stenosis. Patient was transferred here to [facility] for cardiac catheterization. Patient underwent cardiac catheterization with right femoral artery approach and was found to have significant coronary artery disease with critical lesions in the proximal LAD and proximal RCA as well as mild aortic stenosis. Patient underwent coronary artery bypass grafting on 07/29/2016. He was transferred out of the ICU today. Upon examination, he seems to be feeling quite a bit better today. He was up in a chair for quite some time. He denies any complaints of chest discomfort or shortness of breath. Chest x-ray did show right lower lobe infiltrate/effusion which is stable and the patient is currently on brink bronchodilators and Zosyn. He did not undergo dialysis today but is scheduled for tomorrow. Objective - Vital Signs Vital signs: Vital Signs Temp 96.9 F L 08/09/16 15:07 Pulse 80 08/09/16 15:49 Resp 17 08/09/16 15:07 BP 91/44 08/09/16 15:07 Pulse Ox 98 08/09/16 15:07 Intake & Output 08/08/16 08/09/16 08/09/16 18:59 06:59 18:59 Intake Total 913.0 55 Output Total 65 0 Balance 848.0 55 Weight 83.1 kg Intake: IV 18 Pressure Bag 18 Intake, IV Titration 270.0 Amount Piperacillin-Tazobactam 3 50.0 .375 gm In Dextrose/Water 1 50ml.bag @ 12.5 mls/hr IVPB Q12HR RINA Rx#: [id number] Sodium Chloride 0.9% 1, 220 000 ml @ 20 mls/hr IV . Q24H RINA Rx#:[id number] Oral 625 55 Output: Urine 65 0 Other: Voiding Method Indwelling Catheter Indwelling Catheter Urinal # Voids 0 # Bowel Movements 1 ABP, PAP, CO, CI - Last Documented Arterial Blood Pressure 156/51 Pulmonary Artery Pressure 40/30 Cardiac Output 6.4 Cardiac Index 3.3 - Exam PHYSICAL EXAMINATION: HEENT: Head is atraumatic, normocephalic. Pupils equal, round. Neck is supple. There is no elevated jugular venous pressure. HEART EXAMINATION: Heart sounds regular, S1 and S2 normal. CHEST EXAMINATION: Lungs are clear to auscultation and precussion. No chest wall tenderness is noted on palpation or with deep breathing. ABDOMEN: Soft, nontender. Bowel sounds are heard. No organomegaly noted. EXTREMITIES: With no evidence of peripheral edema and no calf tenderness noted. AV fistula to left upper arm. NEUROLOGIC patient is awake, alert and oriented x3. . - Labs CBC & Chem 7: 08/09/16 07:35 08/09/16 07:35 Labs: Abnormal Lab Results - Last 24 Hours (Table) 08/08/16 08/08/16 08/09/16 Range/Units 17:01 21:08 07:35 WBC 11.1 H (3.8-10.6) k/uL RBC 3.17 L (4.30-5.90) m/uL Hgb 9.6 L (13.0-17.5) gm/dL Hct 30.2 L (39.0-53.0) % RDW 18.4 H (11.5-15.5) % Neutrophils # 9.7 H (1.3-7.7) k/uL Lymphocytes # 0.6 L (1.0-4.8) k/uL PT (9.0-12.0) sec APTT (22.0-30.0) sec Sodium (137-145) mmol/L Chloride (98-107) mmol/L BUN (9-20) mg/dL Creatinine (0.66-1.25) mg/dL POC Glucose (mg/dL) 112 H 160 H (75-99) mg/dL AST (17-59) U/L Albumin (3.5-5.0) g/dL 08/09/16 08/09/16 08/09/16 Range/Units 07:35 07:35 11:48 WBC (3.8-10.6) k/uL RBC (4.30-5.90) m/uL Hgb (13.0-17.5) gm/dL Hct (39.0-53.0) % RDW (11.5-15.5) % Neutrophils # (1.3-7.7) k/uL Lymphocytes # (1.0-4.8) k/uL PT 13.0 H (9.0-12.0) sec APTT 46.6 H (22.0-30.0) sec Sodium 134 L (137-145) mmol/L Chloride 97 L (98-107) mmol/L BUN 52 H (9-20) mg/dL Creatinine 3.16 H (0.66-1.25) mg/dL POC Glucose (mg/dL) 108 H (75-99) mg/dL AST 64 H (17-59) U/L Albumin 3.4 L (3.5-5.0) g/dL Assessment and Plan Plan: Assessment and plan #1 non-ST elevation myocardial infarction status post coronary artery bypass grafting. #2 renal failure, on hemodialysis #3 history of MRSA, nasal swab positive for staph #4 hypertension #5 ischemic heart disease From cardiology standpoint, medications were reviewed and we will continue the same. We will continue to follow the patient perioperatively and provide further recommendations accordingly. CITY DIRECTOR note has been reviewed, I agree with a documented findings and plan of care. Patient was seen and examined.
[2016-08-09 16:41] LABS: Glucose,Whole Blood 102 mg/dL (75-99)
[2016-08-09 21:39] LABS: Glucose,Whole Blood 106 mg/dL (75-99)
[2016-08-09] MEDS: SENNOSIDES-DOCUSATE SODIUM 1 EACH TAB PO SCH (21:49)
--- NOTE | 2016-08-09 22:28 | PN ---
DATE OF SERVICE: 08/09/2016 This 80-year-old gentleman admitted with acute respiratory failure after CAD, CABG is being closely monitored. The patient has improved significantly. Sensorium has improved significantly; still mildly confused. Seen and evaluated the patient along with the nurse practitioner. Please refer to the nurse practitioner's notes and impressions documented as a scribe for further information. Further recommendations to follow.
[2016-08-10 04:04] LABS: Glucose,Whole Blood 105 mg/dL (75-99)
[2016-08-10 06:41] LABS: Glucose,Whole Blood 114 mg/dL (75-99)
[2016-08-10] MEDS: INSULIN LISPRO (humaLOG) 300 UNIT/3 ML VIAL SQ SCH ×4 (06:46→21:53)
[2016-08-10] MEDS: PANTOPRAZOLE 40 MG TABLET PO SCH (06:49)
[2016-08-10] MEDS: CALCIUM ACETATE 667 MG CAP PO SCH ×3 (06:49→21:59)
[2016-08-10 07:17] LABS: Anisocytosis Slight; CH 30.4; CHCM 32.6; HCT 25.3 % (39.0-53.0); HDW 3.33; HGB 8.3 gm/dL (13.0-17.5); Hypochromasia Slight; MCH 30.9 pg (25.0-35.0); MCHC 32.9 g/dL (31.0-37.0); MCV 94.1 fL (80.0-100.0); Macrocytosis Slight; Mean Platelet Volume 8.6; RBC 2.69 m/uL (4.30-5.90); WBC 14.1 k/uL (3.8-10.6)
--- NOTE | 2016-08-10 07:32 | XR ---
EXAMINATION TYPE: XR chest 2V DATE OF EXAM: 08/10/2016 7:22 AM COMPARISON: 08/09/2016 INDICATION: Post cardiac surgery, previous abnormal chest x-ray TECHNIQUE: Single frontal view of the chest is obtained. FINDINGS: The heart size is normal. The pulmonary vasculature is normal. There is retrocardiac infiltrate. Correlate for pneumonia and atelectasis. Sternotomy wires are in the midline. A catheter enters on the left tip in the proximal right atrium IMPRESSION: 1. Retrocardiac infiltrate. Correlate for atelectasis or pneumonia.
--- NOTE | 2016-08-10 09:22 | P.PN ---
Subjective Patient seen in follow-up for end-stage renal disease. He is maintained on hemodialysis on a Friday schedule. He was extubated August 04 and is currently on a nasal cannula. He's been undergoing dialysis almost on a daily basis and is now back on Friday schedule. He underwent 2 bronchoscopies this admission revealing left lung bleeding. Bronchial washings positive for Pseudomonas. He is communicating well. Currently having breakfast. Hemodynamically stable. Vital signs are stable. General: The patient appeared well nourished and normally developed. HEENT: Head exam is unremarkable. Neck is without jugular venous distension. LUNGS: Diffuse rhonchi. Breath sounds decreased. HEART: Rate and Rhythm are regular. First and second heart sounds normal. No murmurs, rubs or gallops. ABDOMEN: Abdominal exam reveals normal bowel sounds. Non-tender and non- distended. No evidence of peritonitis. EXTREMITITES: Trace edema. Objective - Vital Signs Vital signs: Vital Signs Temp 97.1 F L 08/10/16 04:00 Pulse 92 08/10/16 04:00 Resp 16 08/10/16 04:00 BP 112/58 08/10/16 04:00 Pulse Ox 98 08/10/16 04:00 Intake & Output 08/09/16 08/10/16 08/10/16 18:59 06:59 18:59 Intake Total 198 240 Balance 198 240 Weight 82.7 kg Intake: IV 20 0.9 flush 20 Intake, IV Titration 50 Amount Piperacillin-Tazobactam 3 50 .375 gm In Dextrose/Water 1 50ml.bag @ 12.5 mls/hr IVPB Q12HR [facility] Rx#: [id number] Oral 128 240 Other: Voiding Method Urinal Diaper # Voids 0 # Bowel Movements 1 ABP, PAP, CO, CI - Last Documented Arterial Blood Pressure 156/51 Pulmonary Artery Pressure 40/30 Cardiac Output 6.4 Cardiac Index 3.3 - Labs CBC & Chem 7: 08/10/16 06:37 08/09/16 07:35 Labs: Abnormal Lab Results - Last 24 Hours (Table) 08/09/16 08/09/16 08/09/16 Range/Units 07:35 11:48 16:39 WBC (3.8-10.6) k/uL RBC (4.30-5.90) m/uL Hgb (13.0-17.5) gm/dL Hct (39.0-53.0) % RDW (11.5-15.5) % PT 13.0 H (9.0-12.0) sec APTT 46.6 H (22.0-30.0) sec POC Glucose (mg/dL) 108 H 102 H (75-99) mg/dL 08/09/16 08/10/16 08/10/16 Range/Units 21:35 04:00 05:54 WBC (3.8-10.6) k/uL RBC (4.30-5.90) m/uL Hgb (13.0-17.5) gm/dL Hct (39.0-53.0) % RDW (11.5-15.5) % PT (9.0-12.0) sec APTT (22.0-30.0) sec POC Glucose (mg/dL) 106 H 105 H 114 H (75-99) mg/dL 08/10/16 Range/Units 06:37 WBC 14.1 H (3.8-10.6) k/uL RBC 2.69 L (4.30-5.90) m/uL Hgb 8.3 L (13.0-17.5) gm/dL Hct 25.3 L (39.0-53.0) % RDW 19.0 H (11.5-15.5) % PT (9.0-12.0) sec APTT (22.0-30.0) sec POC Glucose (mg/dL) (75-99) mg/dL Assessment and Plan Plan: Assessment: #1. End-stage renal disease maintained on hemodialysis on a Friday schedule via left upper extremity AV graft. #2. 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 #3. Left lung blood clots status post bronchoscopy 2. #4. Anemia. Hemoglobin 8.3 today. Plan: Hemodialysis today with goal 2-3 L ultrafiltration as blood pressure tolerates. Maintain Aranesp. Continue antibiotics. Continue with physical therapy. Hold antihypertensives for systolic blood pressure less than 120.
[2016-08-10 09:42] LABS: Calcium 9.2 mg/dL (8.4-10.2); Total Bilirubin 1.3 mg/dL (0.2-1.3)
[2016-08-10 09:55] LABS: Potassium 5.1 mmol/L (3.5-5.1)
[2016-08-10] MEDS: IPRATROPIUM-ALBUTEROL 3 ML NEB INHALATION SCH ×4 (10:00→20:37)
[2016-08-10] MEDS: PIPERACILLIN-TAZOBACTAM 3.375 GM in DEXTROSE/WATER 1 50ML.BAG IVPB SCH ×2 (10:28→21:59)
[2016-08-10] MEDS: HEPARIN SODIUM,PORCINE 5,000 UNIT/ML 1 ML VIAL SQ SCH ×2 (10:28→15:35)
[2016-08-10] MEDS: AMIODARONE 200 MG TAB PO SCH ×2 (10:32→21:59)
[2016-08-10] MEDS: ASPIRIN 81 MG CHEW PO SCH (10:33)
[2016-08-10] MEDS: ATORVASTATIN 40 MG TAB PO SCH (10:33)
[2016-08-10] MEDS: LISINOPRIL 10 MG TAB PO SCH (10:33)
[2016-08-10] MEDS: NYSTATIN 100,000 UNIT/ML SUSP 500,000 UNIT/5 ML CUP PO SCH ×4 (10:33→22:00)
[2016-08-10] MEDS: METOPROLOL TARTRATE 25 MG TAB PO SCH ×2 (10:33→21:59)
[2016-08-10 12:04] LABS: Glucose,Whole Blood 134 mg/dL (75-99)
[2016-08-10] MEDS: FOLIC ACID 1 MG TAB PO SCH (12:52)
--- NOTE | 2016-08-10 14:51 | P.PN ---
<Jorge Grace L - Last Filed: 08/10/16 14:39> Progress Note - Text CV Surgery Nursing Principal diagnosis: Non-ST elevation myocardial infarction. POD #12 non-aortic clamp off pump double coronary artery bypass grafting using the left internal mammary artery to the left anterior descending artery and reverse saphenous vein graft from the aorta to the posterior descending artery. Endoscopic harvesting of the right greater saphenous vein. Intraoperative transesophageal echocardiogram and epi-aortic scanning. Intraoperative graft flow measurements using the Medistim machine. Pt had intraparenchymal hemorrhage with increase oxygen demand after surgery requiring bronchoscopy. Bronchial washings demonstrate infection with pseudomonas, placed on IV zosyn, infectious disease following. Patient awake and alert, no distress noted, no specific complaints, Vital Signs: Afebrile Vital Signs - 24 hr 08/09/16 08/09/16 08/09/16 15:07 15:49 16:00 Temperature 96.9 F L Pulse Rate 80 Pulse Rate [ 72 Bilateral Radial] Pulse Rate [ Pulse Oximetery ] Respiratory 17 16 Rate Blood Pressure 91/44 [Right Arm] O2 Sat by Pulse 98 Oximetry 08/09/16 08/09/16 08/09/16 16:01 19:18 19:28 Temperature Pulse Rate 84 80 80 Pulse Rate [ Bilateral Radial] Pulse Rate [ Pulse Oximetery ] Respiratory Rate Blood Pressure [Right Arm] O2 Sat by Pulse Oximetry 08/09/16 08/09/16 08/10/16 19:43 20:00 00:00 Temperature 96.7 F L 96.7 F L 96.7 F L Pulse Rate Pulse Rate [ 89 Bilateral Radial] Pulse Rate [ 89 99 Pulse Oximetery ] Respiratory 16 16 16 Rate Blood Pressure 98/48 98/48 105/73 [Right Arm] O2 Sat by Pulse 98 98 97 Oximetry 08/10/16 08/10/16 08/10/16 04:00 08:00 12:00 Temperature 97.1 F L 98.5 F 97.3 F L Pulse Rate Pulse Rate [ Bilateral Radial] Pulse Rate [ 92 93 84 Pulse Oximetery ] Respiratory 16 18 18 Rate Blood Pressure 112/58 114/56 111/61 [Right Arm] O2 Sat by Pulse 98 97 94 L Oximetry Labs: Short CBC 08/10/16 Range/Units 06:37 WBC 14.1 H (3.8-10.6) k/uL Hgb 8.3 L (13.0-17.5) gm/dL Hct 25.3 L (39.0-53.0) % Plt Count 175 (150-450) k/uL BMP 08/10/16 06:37 Sodium 139 Potassium 5.1 Chloride 103 Carbon Dioxide 18 L BUN 82 H* Creatinine 5.25 H* Glucose 106 H Calcium 9.2 Liver Function 08/10/16 Range/Units 06:37 Total Bilirubin 1.3 (0.2-1.3) mg/dL AST 64 H (17-59) U/L ALT 48 (21-72) U/L Alkaline Phosphatase 106 (38-126) U/L Albumin 3.2 L (3.5-5.0) g/dL Lungs: essentially clear throughout, diminished bilateral bases. Respirations are unlabored. O2 sat: 97% on 3 L nasal cannula. I/S: 750 mL to 1000 mL, reviewed with the patient importance of using his incentive spirometry every hour while awake. Patient did give a good return demonstration on his incentive spirometry. Heart: S1S2,regular rhythm and rate, positive systolic murmur. Remote telemetry showing normal sinus rhythm heart rate 93. Sternum stable, chest incision clean and dry, well approximated no drainage noted. Heart hugger in place. Patient demonstrating proper use of his heart hugger. right leg incisions clean dry and well approximated. No drainage noted. knee-high DIONI hose and sequential compression devices in place right lower extremity. Left lower leg contact cast and place. Right arm PICC line intact. Abdomen: Soft, Positive bowel sounds present in all 4 quadrants, CBGs: 102-134 mg/dL in the last 24 hours. U/O: hemodialysis dependent, patient's left upper extremity AV fistula with positive bruit, positive thrill. 24 hr Total: Intake & Output 08/08/16 08/09/16 08/10/16 08/11/16 06:59 06:59 06:59 06:59 Intake Total 942 968.0 198 290 Output Total 98 65 Balance 844 903.0 198 290 Weight 83.1 kg 83.1 kg 82.7 kg Active Medications Hydrocodone Bitart/Acetaminophen ([place] 5-325) 2 each PO Q4HR PRN PRN Reason: Severe Pain Last Admin: 08/09/16 16:20 Dose: 2 each Hydrocodone Bitart/Acetaminophen ([place] 5-325) 1 each PO Q4HR PRN PRN Reason: Moderate Pain Last Admin: 08/08/16 21:47 Dose: 1 each Albuterol/Ipratropium (Duoneb 0.5 Mg-3 Mg/3 Ml Soln) 3 ml INHALATION RT-Q2H PRN PRN Reason: Shortness Of Breath Or Wheezing Albuterol/Ipratropium (Duoneb 0.5 Mg-3 Mg/3 Ml Soln) 3 ml INHALATION RT-QID [facility] Last Admin: 08/10/16 12:52 Dose: Not Given Amiodarone HCl (Cordarone) 200 mg PO BID [facility] Last Admin: 08/10/16 10:32 Dose: 200 mg Aspirin (Aspirin) 81 mg PO DAILY [facility] Last Admin: 08/10/16 10:33 Dose: 81 mg Atorvastatin Calcium (Lipitor) 40 mg PO DAILY [facility] Last Admin: 08/10/16 10:33 Dose: 40 mg Benzocaine/Menthol (Cepacol Lozenge) 1 each MUCOUS MEM Q2H PRN PRN Reason: Sore Throat Bisacodyl (Dulcolax) 10 mg RECTAL DAILY PRN PRN Reason: Constipation Calcium Acetate (Phoslo) 667 mg PO TID-W/MEALS [facility] Last Admin: 08/10/16 12:52 Dose: 667 mg Darbepoetin Kevin (Aranesp) 40 mcg SQ Q7D [facility] Last Admin: 08/08/16 17:24 Dose: 40 mcg Diphenoxylate HCl/Atropine (Lomotil Oral Soln) 2.5 ml PO QID PRN PRN Reason: Diarrhea Last Admin: 08/09/16 17:56 Dose: 2.5 ml Folic Acid (Folic Acid) 1 mg PO DAILY@1200 [facility] Last Admin: 08/10/16 12:52 Dose: 1 mg Heparin Sodium (Porcine) (Heparin) 5,000 unit SQ Q8HR [facility] Last Admin: 08/10/16 10:28 Dose: 5,000 unit Hydralazine HCl (Apresoline) 10 mg IVP Q6HR PRN PRN Reason: Blood Pressure - High Last Admin: 08/06/16 10:27 Dose: 10 mg Piperacillin/Tazobactam/ (Dextrose 3.375 gm/ IV Solution) 50 mls @ 12.5 mls/hr IVPB Q12HR [facility] Last Admin: 08/10/16 10:28 Dose: 12.5 mls/hr Insulin Human Lispro (Humalog) 0 unit SQ ACHS [facility] PRN Reason: Protocol Last Admin: 08/10/16 12:52 Dose: 1 unit Lisinopril (Zestril) 10 mg PO DAILY [facility] Last Admin: 08/10/16 10:33 Dose: 10 mg Magnesium Hydroxide (Milk Of Magnesia) 2,400 mg PO BID PRN PRN Reason: Constipation Metoclopramide HCl (Reglan) 10 mg IVP Q4H PRN PRN Reason: Nausea And Vomiting Metoprolol Tartrate (Lopressor) 25 mg PO BID [facility] Last Admin: 08/10/16 10:33 Dose: 25 mg Miscellaneous Information (Magnesium Per Protocol) 1 each MISCELLANE DAILY PRN ; Protocol PRN Reason: Per Protocol Miscellaneous Information (Phosphorus Per Protocol) 1 each MISCELLANE DAILY PRN ; Protocol PRN Reason: Per Protocol Miscellaneous Information (Potassium Per Protocol) 1 each MISCELLANE DAILY PRN ; Protocol PRN Reason: Per Protocol Multivitamins (Theragran) 1 each PO DAILY@1200 [facility] Nystatin (Mycostatin Oral Susp) 500,000 unit PO QID [facility] Last Admin: 08/10/16 14:14 Dose: 500,000 unit Ondansetron HCl (Zofran) 4 mg IVP Q6HR PRN PRN Reason: Nausea And Vomiting Pantoprazole Sodium (Protonix) 40 mg PO AC-BRKFST [facility] Last Admin: 08/10/16 06:49 Dose: 40 mg Senna/Docusate Sodium (Senokot-S) 2 each PO HS [facility] Last Admin: 08/09/16 21:49 Dose: 2 each Sodium Chloride (Saline Flush) 10 ml IV BID [facility] Last Admin: 08/10/16 10:28 Dose: 10 ml Sodium Chloride (Saline Flush) 20 ml IV Q4HR PRN PRN Reason: PICC Line Sodium Chloride (Saline Flush) 10 ml IV WEEKLY [facility] Last Admin: 08/09/16 09:20 Dose: 10 ml Sodium Chloride (Saline Flush) 10 ml IV Q4HR PRN PRN Reason: PICC Line Sodium Chloride (Saline Flush) 10 ml IV Q12HR [facility] Last Admin: 08/10/16 10:33 Dose: Not Given Thiamine HCl (Vitamin B-1) 100 mg PO DAILY@1200 [facility] Plan: 1. Continue aspirin, Lipitor, heparin SQ, lisinopril, lopressor and amiodarone. 2. nephrology on board for hemodialysis management 3. PT/OT to work with patient, out of bed to chair today. If unable to get out of bed to chair, place bed in chair mode. 4. Continue Dr. Evan Miller February infectious disease is following. 5. Encourage incentive spirometry use every hour while awake. 6. Will continue to monitor labs, chest x-rays. 7. Insulin management per primary service. 8. GI/DVT prophylaxis. 9. Wound care center placed patient's total contact cast yesterday. 10. Dr. Cary for pulmonary management. 11. Case management for/social work on for discharge planning. Will need to be evaluated for discharge to rehab facility. <Guero Juárez - Last Filed: 08/13/16 11:38> Progress Note - Text The patient was seen and examined. Agree with the above assessment and plan. Overall the patient remains profoundly debilitated and will need extensive physical therapy. He is currently being evaluated for transfer to a rehab facility. Otherwise he is making slow progress. He is certainly more alert and he was a few days ago. Currently on antibiotics as directed by Dr. Gordon. His left lower extremity wound is being managed by the wound care center. He is currently in a total contact cast. Continue hemodialysis as directed by nephrology.
--- NOTE | 2016-08-10 15:19 | P.PN ---
Subjective Principal diagnosis: NSTEMI S/P CABG This is a pleasant 80-year-old gentleman with a history of hypertension, ischemic heart disease and mild aortic stenosis who was admitted to [facility] with complaints of shortness of breath and cough as well as mild shoulder discomfort. His troponin levels were found to be positive for a non- ST elevation myocardial infarction with EKG showing T-wave changes in the anterolateral leads. Echocardiogram was reported as showing an ejection fraction of 45% and evidence of mild to moderate aortic stenosis. Patient was transferred here to [facility] for cardiac catheterization. Patient underwent cardiac catheterization with right femoral artery approach and was found to have significant coronary artery disease with critical lesions in the proximal LAD and proximal RCA as well as mild aortic stenosis. Patient underwent coronary artery bypass grafting on 07/29/2016. He was transferred out of the ICU today. Upon examination, he seems to be feeling quite a bit better today. He was up in a chair for quite some time. He denies any complaints of chest discomfort or shortness of breath. Chest x-ray did show right lower lobe infiltrate/effusion which is stable and the patient is currently on bronchodilators and Zosyn. He is scheduled to undergo dialysis today. He remains quite weak, working with physical therapy. Likely will require rehab post discharge. Objective - Vital Signs Vital signs: Vital Signs Temp 97.3 F L 08/10/16 12:00 Pulse 84 08/10/16 12:00 Resp 18 08/10/16 12:00 BP 111/61 08/10/16 12:00 Pulse Ox 94 L 08/10/16 12:00 Intake & Output 08/09/16 08/10/16 08/10/16 18:59 06:59 18:59 Intake Total 198 290 Balance 198 290 Weight 82.7 kg Intake: IV 20 0.9 flush 20 Intake, IV Titration 50 50 Amount Piperacillin-Tazobactam 3 50 50 .375 gm In Dextrose/Water 1 50ml.bag @ 12.5 mls/hr IVPB Q12HR [facility] Rx#: [id number] Oral 128 240 Other: Voiding Method Urinal Diaper Diaper # Voids 0 # Bowel Movements 1 ABP, PAP, CO, CI - Last Documented Arterial Blood Pressure 156/51 Pulmonary Artery Pressure 40/30 Cardiac Output 6.4 Cardiac Index 3.3 - Exam PHYSICAL EXAMINATION: HEENT: Head is atraumatic, normocephalic. Pupils equal, round. Neck is supple. There is no elevated jugular venous pressure. HEART EXAMINATION: Heart sounds regular, S1 and S2 normal. CHEST EXAMINATION: Lungs are clear to auscultation and precussion. No chest wall tenderness is noted on palpation or with deep breathing. ABDOMEN: Soft, nontender. Bowel sounds are heard. No organomegaly noted. EXTREMITIES: With no evidence of peripheral edema and no calf tenderness noted. AV fistula to left upper arm. NEUROLOGIC patient is awake, alert and oriented x3. . - Labs CBC & Chem 7: 08/10/16 06:37 08/10/16 06:37 Labs: Abnormal Lab Results - Last 24 Hours (Table) 08/09/16 08/09/16 08/10/16 Range/Units 16:39 21:35 04:00 WBC (3.8-10.6) k/uL RBC (4.30-5.90) m/uL Hgb (13.0-17.5) gm/dL Hct (39.0-53.0) % RDW (11.5-15.5) % Carbon Dioxide (22-30) mmol/L BUN (9-20) mg/dL Creatinine (0.66-1.25) mg/dL Glucose (74-99) mg/dL POC Glucose (mg/dL) 102 H 106 H 105 H (75-99) mg/dL AST (17-59) U/L Total Protein (6.3-8.2) g/dL Albumin (3.5-5.0) g/dL 08/10/16 08/10/16 08/10/16 Range/Units 05:54 06:37 06:37 WBC 14.1 H (3.8-10.6) k/uL RBC 2.69 L (4.30-5.90) m/uL Hgb 8.3 L (13.0-17.5) gm/dL Hct 25.3 L (39.0-53.0) % RDW 19.0 H (11.5-15.5) % Carbon Dioxide 18 L (22-30) mmol/L BUN 82 H* (9-20) mg/dL Creatinine 5.25 H* (0.66-1.25) mg/dL Glucose 106 H (74-99) mg/dL POC Glucose (mg/dL) 114 H (75-99) mg/dL AST 64 H (17-59) U/L Total Protein 6.0 L (6.3-8.2) g/dL Albumin 3.2 L (3.5-5.0) g/dL 08/10/16 Range/Units 12:01 WBC (3.8-10.6) k/uL RBC (4.30-5.90) m/uL Hgb (13.0-17.5) gm/dL Hct (39.0-53.0) % RDW (11.5-15.5) % Carbon Dioxide (22-30) mmol/L BUN (9-20) mg/dL Creatinine (0.66-1.25) mg/dL Glucose (74-99) mg/dL POC Glucose (mg/dL) 134 H (75-99) mg/dL AST (17-59) U/L Total Protein (6.3-8.2) g/dL Albumin (3.5-5.0) g/dL Assessment and Plan Plan: Assessment and plan #1 non-ST elevation myocardial infarction status post coronary artery bypass grafting. #2 renal failure, on hemodialysis #3 history of MRSA, nasal swab positive for staph #4 hypertension #5 ischemic heart disease From cardiology standpoint, medications were reviewed and we will continue the same. We will continue to follow the patient postoperatively and provide further recommendations accordingly. C[employer]ER note has been reviewed, I agree with a documented findings and plan of care. Patient was seen and examined.
[2016-08-10] MEDS: HYDROcodone/APAP 5-325MG 1 EACH TAB PO PRN ×2 (15:39→22:00)
[2016-08-10] MEDS: DIPHENOX-ATROP 2.5-0.025MG/5ML 60 ML BOTTLE PO PRN ×2 (15:41→22:05)
[2016-08-10 17:15] LABS: Glucose,Whole Blood 131 mg/dL (75-99)
--- NOTE | 2016-08-10 17:27 | P.PN ---
Subjective Principal diagnosis: cough This is a 80-year-old male known to infectious disease service as he has been treated for infection to his shunt on his left arm before as well as ulceration to his left heel. Patient states that he presented to [facility] because he was initially having epistaxis. This was on Friday. The bleeding was controlled and he was discharged home. He then returned on Friday as he woke up in the morning at 2 AM with a cough and shortness of breath that had been going on but continued to worsen. Patient was diagnosed with a non-ST elevated myocardial infarction and was transferred to [facility] on July 25 for heart catheterization that found two-vessel disease of the proximal LAD and proximal RCA with mild aortic stenosis. He has been evaluated by cardiothoracic surgery and is scheduled for CABG on June 28. Patient does have history of end-stage renal disease on hemodialysis Friday and Friday and is followed by Dr. Fernandez. He denies any problems with his dialysis AV fistula in his left arm. [facility] under the care of Dr. Carey. He has a total contact cast to the left lower extremity which is scheduled to be removed today. Regarding his epistaxis, patient was seen by Dr. Chen on underwent flexible nasal endoscopy finding a right anterior septal ulcer. Dr. Lucas is following from pulmonary medicine. Upon review of his previous wound cultures, he does have history of MRSA. Patient does have history of rheumatoid arthritis on prednisone only. 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 He has been evaluated by interventional radiology and repairs been performed. He is doing well and folow up shows resolution of the pseudoaneurysm The cardiothoracic surgeries occurred. He did well ,but had some bleeding into his lungs. A bronchoscopy was done to remove blood clots. Cultures reveal evidence pseudomonas aeruginosa from the BAL. Antibiotic therapy with Zosyn was begun. AP and fungal cultures are negative. Patient is improved out of the intensive care unit. Objective - Vital Signs Vital signs: Vital Signs Temp 98.3 F 08/10/16 16:00 Pulse 80 08/10/16 17:04 Resp 18 08/10/16 16:00 BP 93/43 08/10/16 16:00 Pulse Ox 99 08/10/16 16:00 Intake & Output 08/09/16 08/10/16 08/10/16 18:59 06:59 18:59 Intake Total 198 350 Balance 198 350 Weight 82.7 kg Intake: IV 20 0.9 flush 20 Intake, IV Titration 50 50 Amount Piperacillin-Tazobactam 3 50 50 .375 gm In Dextrose/Water 1 50ml.bag @ 12.5 mls/hr IVPB Q12HR [facility] Rx#: [id number] Oral 128 300 Other: Voiding Method Urinal Diaper Diaper # Voids 0 # Bowel Movements 1 1 ABP, PAP, CO, CI - Last Documented Arterial Blood Pressure 156/51 Pulmonary Artery Pressure 40/30 Cardiac Output 6.4 Cardiac Index 3.3 - Exam Gen: This is a 80-year-old male. On selective care. Extubated. Sitting upright. Able to communicate. HEENT: Head is atraumatic, normocephalic. Pupils equal, round. Sclerae is anicteric. Conjunctiva pink. Mucous members of the mouth are moist. No thrush noted. NECK: Supple. No JVD. No lymphadenopathy. No thyromegaly. LUNGS: Coarse crackles throughout the lung cotto HEART: Regular rate and rhythm. No murmur. ABDOMEN: Soft. Bowel sounds are present. No masses. No tenderness. EXTREMITIES: Total contact cast is back in place in the left leg. The right leg is without significant edema, pseudoaneurysm site to the right leg continues to heal and the ecchymosis is improving Dialysis graft of the left arm is intact.Difficulty with a skin tear NEUROLOGICAL:Apparently the patient was was quite confused after extubation, is now improved , does know me by name - Labs CBC & Chem 7: 08/10/16 06:37 08/10/16 06:37 Labs: Abnormal Lab Results - Last 24 Hours (Table) 08/09/16 08/10/16 08/10/16 Range/Units 21:35 04:00 05:54 WBC (3.8-10.6) k/uL RBC (4.30-5.90) m/uL Hgb (13.0-17.5) gm/dL Hct (39.0-53.0) % RDW (11.5-15.5) % Carbon Dioxide (22-30) mmol/L BUN (9-20) mg/dL Creatinine (0.66-1.25) mg/dL Glucose (74-99) mg/dL POC Glucose (mg/dL) 106 H 105 H 114 H (75-99) mg/dL AST (17-59) U/L Total Protein (6.3-8.2) g/dL Albumin (3.5-5.0) g/dL 08/10/16 08/10/16 08/10/16 Range/Units 06:37 06:37 12:01 WBC 14.1 H (3.8-10.6) k/uL RBC 2.69 L (4.30-5.90) m/uL Hgb 8.3 L (13.0-17.5) gm/dL Hct 25.3 L (39.0-53.0) % RDW 19.0 H (11.5-15.5) % Carbon Dioxide 18 L (22-30) mmol/L BUN 82 H* (9-20) mg/dL Creatinine 5.25 H* (0.66-1.25) mg/dL Glucose 106 H (74-99) mg/dL POC Glucose (mg/dL) 134 H (75-99) mg/dL AST 64 H (17-59) U/L Total Protein 6.0 L (6.3-8.2) g/dL Albumin 3.2 L (3.5-5.0) g/dL 08/10/16 Range/Units 17:11 WBC (3.8-10.6) k/uL RBC (4.30-5.90) m/uL Hgb (13.0-17.5) gm/dL Hct (39.0-53.0) % RDW (11.5-15.5) % Carbon Dioxide (22-30) mmol/L BUN (9-20) mg/dL Creatinine (0.66-1.25) mg/dL Glucose (74-99) mg/dL POC Glucose (mg/dL) 131 H (75-99) mg/dL AST (17-59) U/L Total Protein (6.3-8.2) g/dL Albumin (3.5-5.0) g/dL Laboratory Results WBC 14.1 k/uL (3.8-10.6) H 08/10/16 06:37 RBC 2.69 m/uL (4.30-5.90) L 08/10/16 06:37 Hgb 8.3 gm/dL (13.0-17.5) L 08/10/16 06:37 Hct 25.3 % (39.0-53.0) L 08/10/16 06:37 MCV 94.1 fL (80.0-100.0) 08/10/16 06:37 MCH 30.9 pg (25.0-35.0) 08/10/16 06:37 MCHC 32.9 g/dL (31.0-37.0) 08/10/16 06:37 RDW 19.0 % (11.5-15.5) H 08/10/16 06:37 Plt Count 175 k/uL (150-450) 08/10/16 06:37 Neutrophils % 88 % 08/09/16 07:35 Neutrophils % (Manual) 81.0 % 07/29/16 14:10 Band Neutrophils % 4.0 % 07/29/16 14:10 Lymphocytes % 6 % 08/09/16 07:35 Lymphocytes % (Manual) 9.0 % 07/29/16 14:10 Monocytes % 4 % 08/09/16 07:35 Monocytes % (Manual) 2.0 % 07/29/16 14:10 Eosinophils % 1 % 08/09/16 07:35 Eosinophils % (Manual) 4.0 % 07/29/16 14:10 Basophils % 0 % 08/09/16 07:35 Myelocytes % 0.5 % 07/26/16 06:10 Neutrophils # 9.7 k/uL (1.3-7.7) H 08/09/16 07:35 Neutrophils # (Manual) 12.2 k/uL (1.3-7.7) H 07/29/16 14:10 Lymphocytes # 0.6 k/uL (1.0-4.8) L 08/09/16 07:35 Lymphocytes # (Manual) 1.3 k/uL (1.0-4.8) 07/29/16 14:10 Monocytes # 0.5 k/uL (0-1.0) 08/09/16 07:35 Monocytes # (Manual) 0.3 k/uL (0-1.0) 07/29/16 14:10 Eosinophils # 0.1 k/uL (0-0.7) 08/09/16 07:35 Eosinophils # (Manual) 0.6 k/uL (0-0.7) 07/29/16 14:10 Basophils # 0.0 k/uL (0-0.2) 08/09/16 07:35 Nucleated RBCs 0 /100 WBC (0-0) 07/29/16 14:10 Manual Slide Review Performed 08/04/16 05:45 Polychromasia Present 07/29/16 14:10 Hypochromasia Slight 08/10/16 06:37 Poikilocytosis Slight 08/07/16 05:10 Poikilocytosis (manual Present 07/26/16 06:10 Anisocytosis Slight 08/10/16 06:37 Macrocytosis Slight 08/10/16 06:37 PT 13.0 sec (9.0-12.0) H 08/09/16 07:35 INR 1.3 (<1.1) 08/09/16 07:35 APTT 46.6 sec (22.0-30.0) H 08/09/16 07:35 Fibrinogen 206 mg/dL (200-500) 07/29/16 14:10 Sample Site [place] 08/05/16 21:25 ABG pH 7.46 (7.35-7.45) H 08/05/16 21:25 ABG pCO2 37 mmHg (35-45) 08/05/16 21:25 ABG pO2 111 mmHg (83-108) H 08/05/16 21:25 ABG HCO3 25 mmol/L (21-25) 08/05/16 21:25 ABG Total CO2 27 mmol/L (19-24) H 08/05/16 21:25 ABG O2 Saturation 98.0 % (94-97) H 08/05/16 21:25 ABG Base Excess 1.8 mmol/L 08/05/16 21:25 FiO2 40 % 08/05/16 21:25 Sodium 139 mmol/L (137-145) 08/10/16 06:37 Potassium 5.1 mmol/L (3.5-5.1) 08/10/16 06:37 Chloride 103 mmol/L (98-107) 08/10/16 06:37 Carbon Dioxide 18 mmol/L (22-30) L 08/10/16 06:37 Anion Gap 18 mmol/L 08/10/16 06:37 BUN 82 mg/dL (9-20) H* 08/10/16 06:37 Creatinine 5.25 mg/dL (0.66-1.25) H* 08/10/16 06:37 Est GFR (MDRD) Af Amer 13 (>60 ml/min/1.73 sqM) 08/10/16 06:37 Est GFR (MDRD) Non-Af 11 (>60 ml/min/1.73 sqM) 08/10/16 06:37 Glucose 106 mg/dL (74-99) H 08/10/16 06:37 POC Glucose (mg/dL) 131 mg/dL (75-99) H 08/10/16 17:11 POC Glu Animal Ride Attendant ID Raheem Saunders 08/10/16 17:[address] Glu mg/dL 111 mg/dL 07/25/16 06:21 Hemoglobin A1c 5.5 % (4.2-6.1) 07/25/16 06:21 Calcium 9.2 mg/dL (8.4-10.2) 08/10/16 06:37 Ionized Calcium Lance 4.5 mg/dL (4.5-5.3) 08/05/16 04:55 Phosphorus 4.4 mg/dL (2.5-4.5) 08/09/16 07:35 Magnesium 2.2 mg/dL (1.6-2.3) 08/09/16 07:35 Iron 30 ug/dL (49-181) L 07/27/16 05:54 TIBC 273 ug/dL (261-462) 07/27/16 05:54 % Saturation 11.0 % (20-50) L 07/27/16 05:54 Total Bilirubin 1.3 mg/dL (0.2-1.3) 08/10/16 06:37 AST 64 U/L (17-59) H 08/10/16 06:37 ALT 48 U/L (21-72) 08/10/16 06:37 Alkaline Phosphatase 106 U/L (38-126) 08/10/16 06:37 NT-Pro-B Natriuret Pep 40547 pg/mL 07/25/16 06:21 Total Protein 6.0 g/dL (6.3-8.2) L 08/10/16 06:37 Albumin 3.2 g/dL (3.5-5.0) L 08/10/16 06:37 Triglycerides 78 mg/dL (<150) 07/26/16 06:10 Cholesterol 143 mg/dL (<200) 07/26/16 06:10 LDL Cholesterol, Calc 72 mg/dL (0-99) 07/26/16 06:10 HDL Cholesterol 55 mg/dL (40-60) 07/26/16 06:10 TSH 3.000 mIU/L (0.465-4.680) 07/26/16 06:10 Urine Color Light Yellow 07/25/16 20:46 Urine Appearance Clear (Clear) 07/25/16 20:46 Urine pH 8.0 (5.0-8.0) 07/25/16 20:46 Ur Specific [place] 1.007 (1.001-1.035) 07/25/16 20:46 Urine Protein 2+ (Negative) H 07/25/16 20:46 Urine Glucose (UA) 1+ (Negative) H 07/25/16 20:46 Urine Ketones Negative (Negative) 07/25/16 20:46 Urine Blood Trace (Negative) H 07/25/16 20:46 Urine Nitrite Negative (Negative) 07/25/16 20:46 Urine Bilirubin Negative (Negative) 07/25/16 20:46 Urine Urobilinogen <2.0 mg/dL (<2.0) 07/25/16 20:46 Ur Leukocyte Esterase Negative (Negative) 07/25/16 20:46 Urine RBC <1 /hpf (0-5) 07/25/16 20:46 Urine WBC <1 /hpf (0-5) 07/25/16 20:46 Ur Squamous Epith Cells <1 /hpf (0-4) 07/25/16 20:46 Urine Bacteria Rare /hpf (None) H 07/25/16 20:46 Stool Occult Blood Positive (Negative) 07/25/16 20:46 Random Vancomycin 9.5 ug/mL 07/30/16 06:00 c-ANCA <1:20 Titer (<1:20) 07/31/16 08:45 p-ANCA <1:20 Titer (<1:20) 07/31/16 08:45 Hepatitis A IgM Ab NEGATIVE 07/26/16 06:10 Hep Bs Antigen Negative 07/26/16 06:10 Hep B Core IgM Ab NEGATIVE 07/26/16 06:10 Hep C IgG Ab Negative (Negative) 07/26/16 06:10 Virus Source See Below 08/01/16 16:15 Viral Test See Below 08/01/16 16:15 Virus Analysis Interp See Below 08/01/16 16:15 Blood Type B Positive 08/03/16 08:00 Blood Type Confirm B Positive 07/27/16 05:59 Blood Type Recheck No 08/03/16 08:00 Antibody Screen NEGATIVE 08/03/16 08:00 Crossmatch See Detail 08/03/16 08:00 Transfuse Plasma 07/29/2016 07/29/16 12:59 Transfuse Platelets 07/29/2016 07/29/16 13:00 Spec Expiration Date 08/06/2016 - 2300 08/03/16 08:00 Microbiology 07/31/16 05:55 Blood Blood Culture - Final No Growth after 144 hours 07/31/16 05:55 Blood Blood Culture - Final No Growth after 144 hours 08/01/16 16:15 Bronchial Washings - Left Gram Stain - Final 08/01/16 16:15 Bronchial Washings - Left Bronchial Washings Culture - Final Pseudomonas aeruginosa 08/01/16 16:15 Bronchial Washings - Left Acid Fast Bacilli Smear - Final 08/01/16 16:15 Bronchial Washings - Left Acid Fast Bacilli Culture - Preliminary 08/01/16 16:15 Bronchial Washings - Left Fungal Culture - Preliminary 07/25/16 20:46 Urine,Voided Urine Culture - Final Assessment and Plan (1) Non-STEMI (non-ST elevated myocardial infarction) Status: Acute (2) Diabetic foot ulcer associated with type 2 diabetes mellitus Narrative/Plan: The total contact cast is in reapplied to the left leg. Doing well. Discontinued to recover from his cardiovascular surgery. 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 BAL that showed evidence of pseudomonas aeruginosa and is being treated with piperacillin tazobactam. The plan a 7 day course of that. Continue ongoing supportive care. His neurological status continues to improve. The pseudoaneurysm to the right groin continues to heal ecchymosis is improving. Daily improvement is being recorded. We'll go to inpatient rehab at discharge. Has been tolerating dialysis without difficulties. Status: Acute
--- NOTE | 2016-08-10 18:47 | PN ---
This is a 80-year-old gentleman who is status post bypass grafting. He had a really arianne postoperative course. He was really slow to recover. He was extubated last Friday by Dr. Santa. In addition to his bypass grafting, he has a history of end-stage renal disease currently on hemodialysis, hyperlipidemia, hypertension, non-ST segment elevation myocardial infarction, type 2 diabetes with diabetic foot ulcer, and end-stage renal disease currently and hemodialysis. The patient currently is doing reasonably well. He was moved out of the ICU yesterday. No major complaints or problems. Feeling generally well. Current vital signs are reviewed. Temperature 97.3, heart rate 84, respiratory rate 18, blood pressure 111/61, mean 77, 3 liters saturation 94%. Appears in no acute distress. Lying in bed. He has a family member at bedside. HEENT examination is grossly unremarkable. Mucous membranes are moist. No oral lesions. Neck is supple. Full range of motion. No adenopathy or thyromegaly. Cardiovascular examination reveals regular rhythm and rate. S1, S2 normal. No murmur. Lungs reveal relatively clear breath sounds. A few scattered crackles. No rhonchi. No wheezes. Abdomen is soft. Bowel sounds are heard. Extremities are intact. Minimal edema. Skin without rashes or lesions. There are a few areas of ecchymoses. Neurologic exam is brief but nonfocal. Labs are reviewed. White count 14.1, hemoglobin 8.3, hematocrit 25.3, platelet count 175,000. Sodium 139, potassium 5.1, chloride 103, CO2 of 18, anion gap is 18, BUN and creatinine were 82 and 5.25. The rest of his labs look okay. Albumin 3.2. A chest x-ray shows improving volume status with a retrocardiac infiltrate, which may represent atelectasis or pneumonic infiltrate. Medications are reviewed. ASSESSMENT: 1. Status post bypass grafting with arianne postoperative course. 2. Status post postoperative respiratory failure, resolved. 3. Non-ST segment elevation myocardial infarction. 4. Hypertension. 5. Hyperlipidemia. 6. End-stage renal disease, requiring hemodialysis. 7. Diabetic foot ulcer. 8. Poor mental status, which has improved clinically and significantly over the last couple of days. PLAN: The patient is doing much better. He was transferred out to [address] [place] [address] yesterday. He is over on the floor. He is on room 659. I talked with his family member today. He is getting strength. He is encouraged to use the incentive spirometry every1 hour while awake. Still on nasal O2. I will allow nephrology to decide about his next dialysis treatment. Medications are reviewed. Everything seems to be appropriate.
[2016-08-10 21:43] LABS: Glucose,Whole Blood 107 mg/dL (75-99)
[2016-08-10] MEDS: SENNOSIDES-DOCUSATE SODIUM 1 EACH TAB PO SCH ×2 (22:00→22:17)
[2016-08-11] MEDS ORDERED: SODIUM CHLORIDE 0.9% 250 ML IV ONE (00:02)
[2016-08-11] MEDS: HEPARIN SODIUM,PORCINE 5,000 UNIT/ML 1 ML VIAL SQ SCH ×3 (00:08→16:19)
[2016-08-11] MEDS ORDERED: MIDODRINE 5 MG TAB PO SCH (00:15)
[2016-08-11] MEDS ORDERED: MIDODRINE 5 MG TAB PO STA (00:21)
[2016-08-11 01:53] LABS: Glucose,Whole Blood 109 mg/dL (75-99)
[2016-08-11] MEDS: HYDROcodone/APAP 5-325MG 1 EACH TAB PO PRN ×4 (03:01→20:01)
[2016-08-11] MEDS: DIPHENOX-ATROP 2.5-0.025MG/5ML 60 ML BOTTLE PO PRN (03:02)
[2016-08-11 06:13] LABS: Glucose,Whole Blood 106 mg/dL (75-99)
[2016-08-11] MEDS: INSULIN LISPRO (humaLOG) 300 UNIT/3 ML VIAL SQ SCH ×4 (06:52→20:07)
[2016-08-11] MEDS: PANTOPRAZOLE 40 MG TABLET PO SCH (06:52)
[2016-08-11] MEDS: CALCIUM ACETATE 667 MG CAP PO SCH ×3 (07:57→18:21)
--- NOTE | 2016-08-11 08:06 | XR ---
EXAMINATION TYPE: XR chest 2V DATE OF EXAM: 08/11/2016 7:15 AM COMPARISON: NONE INDICATION: Postop cardiac surgery TECHNIQUE: Single frontal view of the chest is obtained. FINDINGS: The heart size is borderline in size. The pulmonary vasculature is normal. Small left pleural effusion is present. Previous left lower lobe infiltrate is resolved. Catheter is present on the right with the tip in the superior vena cava region. Sternotomy wires are in the midline. IMPRESSION: 1. Small left pleural effusion.
[2016-08-11 08:08] LABS: Anisocytosis Slight; CHCM 34.1; HCT 26.3 % (39.0-53.0); HDW 3.62; HGB 8.8 gm/dL (13.0-17.5); MCH 30.7 pg (25.0-35.0); MCHC 33.5 g/dL (31.0-37.0); MCV 91.7 fL (80.0-100.0); Mean Platelet Volume 8.3; Poikilocytosis Slight; RBC 2.86 m/uL (4.30-5.90); RDW 19.4 % (11.5-15.5); WBC 13.7 k/uL (3.8-10.6)
[2016-08-11] MEDS: IPRATROPIUM-ALBUTEROL 3 ML NEB INHALATION SCH ×4 (08:35→20:48)
[2016-08-11 08:38] LABS: Calcium 9.8 mg/dL (8.4-10.2); Total Bilirubin 1.4 mg/dL (0.2-1.3); Total Protein 6.1 g/dL (6.3-8.2)
[2016-08-11 08:52] LABS: Potassium 5.1 mmol/L (3.5-5.1)
--- NOTE | 2016-08-11 08:52 | P.PN ---
Subjective Patient seen in follow-up for end-stage renal disease. He is maintained on hemodialysis on a Friday schedule. He was extubated August 04 and is currently on a nasal cannula. He's been undergoing dialysis almost on a daily basis and is now back on Friday schedule. He underwent 2 bronchoscopies this admission revealing left lung bleeding. Bronchial washings positive for Pseudomonas. He is communicating well. Currently having breakfast. He did become hypotensive early this morning which improved with a 250 mL bolus. He underwent hemodialysis yesterday with 1.3 L ultrafiltration. Vital signs are stable. General: The patient appeared well nourished and normally developed. HEENT: Head exam is unremarkable. Neck is without jugular venous distension. LUNGS: Diffuse rhonchi. Breath sounds decreased. HEART: Rate and Rhythm are regular. First and second heart sounds normal. No murmurs, rubs or gallops. ABDOMEN: Abdominal exam reveals normal bowel sounds. Non-tender and non- distended. No evidence of peritonitis. EXTREMITITES: Trace edema. Objective - Vital Signs Vital signs: Vital Signs Temp 97 F L 08/11/16 03:59 Pulse 88 08/11/16 08:50 Resp 16 08/11/16 03:59 BP 102/47 08/11/16 03:59 Pulse Ox 100 08/11/16 03:59 Intake & Output 08/10/16 08/11/16 08/11/16 18:59 06:59 18:59 Intake Total 350 330 Balance 350 330 Weight 81 kg Intake: IV 280 0.9 flush 30 Sodium Chloride 0.9% 250 250 ml @ 999 mls/hr IV .Q16M ONE Rx#:[id number] Intake, IV Titration 50 50 Amount Piperacillin-Tazobactam 3 50 50 .375 gm In Dextrose/Water 1 50ml.bag @ 12.5 mls/hr IVPB Q12HR [facility] Rx#: [id number] Oral 300 Other: Voiding Method Diaper Diaper # Bowel Movements 1 1 ABP, PAP, CO, CI - Last Documented Arterial Blood Pressure 156/51 Pulmonary Artery Pressure 40/30 Cardiac Output 6.4 Cardiac Index 3.3 - Labs CBC & Chem 7: 08/11/16 06:57 08/10/16 06:37 Labs: Abnormal Lab Results - Last 24 Hours (Table) 08/10/16 08/10/16 08/10/16 Range/Units 06:37 12:01 17:11 WBC (3.8-10.6) k/uL RBC (4.30-5.90) m/uL Hgb (13.0-17.5) gm/dL Hct (39.0-53.0) % RDW (11.5-15.5) % Carbon Dioxide 18 L (22-30) mmol/L BUN 82 H* (9-20) mg/dL Creatinine 5.25 H* (0.66-1.25) mg/dL Glucose 106 H (74-99) mg/dL POC Glucose (mg/dL) 134 H 131 H (75-99) mg/dL AST 64 H (17-59) U/L Total Protein 6.0 L (6.3-8.2) g/dL Albumin 3.2 L (3.5-5.0) g/dL 08/10/16 08/11/16 08/11/16 Range/Units 21:37 01:52 06:04 WBC (3.8-10.6) k/uL RBC (4.30-5.90) m/uL Hgb (13.0-17.5) gm/dL Hct (39.0-53.0) % RDW (11.5-15.5) % Carbon Dioxide (22-30) mmol/L BUN (9-20) mg/dL Creatinine (0.66-1.25) mg/dL Glucose (74-99) mg/dL POC Glucose (mg/dL) 107 H 109 H 106 H (75-99) mg/dL AST (17-59) U/L Total Protein (6.3-8.2) g/dL Albumin (3.5-5.0) g/dL 08/11/16 Range/Units 06:57 WBC 13.7 H (3.8-10.6) k/uL RBC 2.86 L (4.30-5.90) m/uL Hgb 8.8 L (13.0-17.5) gm/dL Hct 26.3 L (39.0-53.0) % RDW 19.4 H (11.5-15.5) % Carbon Dioxide (22-30) mmol/L BUN (9-20) mg/dL Creatinine (0.66-1.25) mg/dL Glucose (74-99) mg/dL POC Glucose (mg/dL) (75-99) mg/dL AST (17-59) U/L Total Protein (6.3-8.2) g/dL Albumin (3.5-5.0) g/dL Assessment and Plan Plan: Assessment: #1. End-stage renal disease maintained on hemodialysis on a Friday schedule via left upper extremity AV graft. #2. 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 #3. Left lung blood clots status post bronchoscopy 2. #4. Anemia. Hemoglobin stable. Plan: Hemodialysis Friday with goal 2-3 L ultrafiltration as blood pressure tolerates. Maintain Aranesp. Continue antibiotics. Continue with physical therapy. Hold antihypertensives for systolic blood pressure less than 120. Midodrine as needed.
[2016-08-11] MEDS: PIPERACILLIN-TAZOBACTAM 3.375 GM in DEXTROSE/WATER 1 50ML.BAG IVPB SCH (09:19)
[2016-08-11] MEDS: NYSTATIN 100,000 UNIT/ML SUSP 500,000 UNIT/5 ML CUP PO SCH ×4 (09:20→20:08)
[2016-08-11] MEDS: ATORVASTATIN 40 MG TAB PO SCH (09:20)
[2016-08-11] MEDS: METOPROLOL TARTRATE 25 MG TAB PO SCH ×2 (09:20→20:02)
[2016-08-11] MEDS: ASPIRIN 81 MG CHEW PO SCH (09:20)
[2016-08-11] MEDS: LISINOPRIL 10 MG TAB PO SCH (09:20)
[2016-08-11] MEDS: AMIODARONE 200 MG TAB PO SCH ×2 (09:20→20:02)
--- NOTE | 2016-08-11 10:58 | PN ---
DATE OF SERVICE: 08/10/2016 This 80-year-old gentleman who was admitted for CAD with CABG, is improving significantly. The patient also has chronic renal failure, on hemodialysis. No fever, no cough. On exam, alert, oriented. Pulse 82, blood pressure 193/46, respiration 18, temperature 98.2, pulse ox 99% on 3 liters. HEENT: Conjunctivae normal. NECK: Supple, no JVD. CARDIOVASCULAR: S1 and S2 muffled. LUNGS: Breath sounds diminished at the bases. Few scattered rhonchi and crackles. ABDOMEN: Soft, nontender. EXTREMITIES: No edema. PARTS CLERK: No focal deficits. LABS: Creatinine 5.2, other labs are noted. Hemoglobin is 8.3. ASSESSMENT: 1. Acute non-ST segment elevation myocardial infarction, status post coronary artery disease with coronary artery bypass grafting. 2. Acute hypoxic respiratory failure secondary to pulmonary edema, status post mechanical ventilation and BiPAP. 3. Chronic kidney disease, stage V, on hemodialysis. 4. Mild aortic stenosis. 5. Hypertension. 6. Hyperlipidemia. 7. Congestive heart failure with acute exacerbation, acute on chronic systolic dysfunction. 8. Coronary artery disease status post coronary artery bypass grafting. 9. Metabolic bone disease. 10. Hypophosphatemia secondary to endstage renal disease. 11. Anemia of chronic kidney disease. 12. Hyponatremia, hypovolemia. 13. Possible pneumonia left lower lobe, status bronchoscopy showing pseudomonas aeruginosa. 14. Left mainstem bronchus blood clot leading to left lung collapse, status post bronchoscopy. 15. Hypoalbuminemia. 16. FULL CODE. RECOMMENDATIONS: This 80-year-old gentleman presented with multiple complex medical issues. We will monitor the patient closely. Continue with incentive spirometry. Monitor blood sugars closely. PT, OT evaluation. Increase ambulation. Possible ECF rehab. Guarded prognosis because of multiple complex medical issues. Continue to closely follow with Pulmonary and Cardiology and Cardiothoracic Surgery. Further recommendations to follow. Discussed with the family.
[2016-08-11 12:00] LABS: Glucose,Whole Blood 122 mg/dL (75-99)
[2016-08-11] MEDS: THIAMINE 100 MG TAB PO SCH (12:44)
[2016-08-11] MEDS: FOLIC ACID 1 MG TAB PO SCH (12:44)
[2016-08-11] MEDS: MULTIVITAMINS, THERA 1 EACH TAB PO SCH (12:45)
--- NOTE | 2016-08-11 13:39 | P.PN ---
Subjective Principal diagnosis: cough This is a 80-year-old male known to infectious disease service as he has been treated for infection to his shunt on his left arm before as well as ulceration to his left heel. Patient states that he presented to [facility] because he was initially having epistaxis. This was on Friday. The bleeding was controlled and he was discharged home. He then returned on Friday as he woke up in the morning at 2 AM with a cough and shortness of breath that had been going on but continued to worsen. 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 He has been evaluated by cardiothoracic surgery and is scheduled for CABG on June 28. Patient does have history of end-stage renal disease on hemodialysis Friday and Friday and is followed by Dr. Fernandez. He denies any problems with his dialysis AV fistula in his left arm. [facility] under the care of Dr. Carey. He has a total contact cast to the left lower extremity . Regarding his epistaxis, patient was seen by Dr. Chen on underwent flexible nasal endoscopy finding a right anterior septal ulcer. Dr. Lucas is following from pulmonary medicine. Upon review of his previous wound cultures, he does have history of MRSA. Patient does have history of rheumatoid arthritis on prednisone only. 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 He has been evaluated by interventional radiology and repairs been performed. He is doing well and folow up shows resolution of the pseudoaneurysm The cardiothoracic surgeries occurred. He did well ,but had some bleeding into his lungs. A bronchoscopy was done to remove blood clots. Cultures reveal evidence pseudomonas aeruginosa from the BAL. Antibiotic therapy with Zosyn was begun. AP and fungal cultures are negative. Patient is improved out of the intensive care unit. Patient complains of some discomfort of buttocks, not new but worse now sitting in chair. Objective - Vital Signs Vital signs: Vital Signs Temp 97 F L 08/11/16 08:00 Pulse 88 08/11/16 08:50 Resp 16 08/11/16 08:00 BP 93/49 08/11/16 08:00 Pulse Ox 95 08/11/16 08:00 Intake & Output 08/10/16 08/11/16 08/11/16 18:59 06:59 18:59 Intake Total 350 330 Balance 350 330 Weight 81 kg Intake: IV 280 0.9 flush 30 Sodium Chloride 0.9% 250 250 ml @ 999 mls/hr IV .Q16M ONE Rx#:[id number] Intake, IV Titration 50 50 Amount Piperacillin-Tazobactam 3 50 50 .375 gm In Dextrose/Water 1 50ml.bag @ 12.5 mls/hr IVPB Q12HR [facility] Rx#: [id number] Oral 300 Other: Voiding Method Diaper Diaper Diaper # Bowel Movements 1 1 ABP, PAP, CO, CI - Last Documented Arterial Blood Pressure 156/51 Pulmonary Artery Pressure 40/30 Cardiac Output 6.4 Cardiac Index 3.3 - Exam Gen: This is a 80-year-old male. On selective care. Extubated. Sitting upright. Able to communicate. HEENT: Head is atraumatic, normocephalic. Pupils equal, round. Sclerae is anicteric. Conjunctiva pink. Mucous members of the mouth are moist. No thrush noted. NECK: Supple. No JVD. No lymphadenopathy. No thyromegaly. LUNGS: Coarse crackles throughout the lung cotto HEART: Regular rate and rhythm. No murmur. ABDOMEN: Soft. Bowel sounds are present. No masses. No tenderness. EXTREMITIES: Total contact cast is back in place in the left leg. The right leg is without significant edema, pseudoaneurysm site to the right leg continues to heal and the ecchymosis is improving Skin: With the aids present the patient is started. There is evidence of some minimal erythema to the buttocks. No open ulcerations are seen in the buttocks or the coccyx. He is producing some stool that is thickened pasty in nature. There is no kris diarrhea. Dialysis graft of the left arm is intact.Difficulty with a skin tear NEUROLOGICAL:Apparently the patient was was quite confused after extubation, is now improved , does know me by name - Labs CBC & Chem 7: 08/11/16 06:57 08/11/16 06:57 Labs: Abnormal Lab Results - Last 24 Hours (Table) 08/10/16 08/10/16 08/11/16 Range/Units 17:11 21:37 01:52 WBC (3.8-10.6) k/uL RBC (4.30-5.90) m/uL Hgb (13.0-17.5) gm/dL Hct (39.0-53.0) % RDW (11.5-15.5) % BUN (9-20) mg/dL Creatinine (0.66-1.25) mg/dL Glucose (74-99) mg/dL POC Glucose (mg/dL) 131 H 107 H 109 H (75-99) mg/dL Total Bilirubin (0.2-1.3) mg/dL AST (17-59) U/L Total Protein (6.3-8.2) g/dL Albumin (3.5-5.0) g/dL 08/11/16 08/11/16 08/11/16 Range/Units 06:04 06:57 06:57 WBC 13.7 H (3.8-10.6) k/uL RBC 2.86 L (4.30-5.90) m/uL Hgb 8.8 L (13.0-17.5) gm/dL Hct 26.3 L (39.0-53.0) % RDW 19.4 H (11.5-15.5) % BUN 46 H (9-20) mg/dL Creatinine 3.49 H (0.66-1.25) mg/dL Glucose 101 H (74-99) mg/dL POC Glucose (mg/dL) 106 H (75-99) mg/dL Total Bilirubin 1.4 H (0.2-1.3) mg/dL AST 70 H (17-59) U/L Total Protein 6.1 L (6.3-8.2) g/dL Albumin 3.1 L (3.5-5.0) g/dL 08/11/16 Range/Units 11:56 WBC (3.8-10.6) k/uL RBC (4.30-5.90) m/uL Hgb (13.0-17.5) gm/dL Hct (39.0-53.0) % RDW (11.5-15.5) % BUN (9-20) mg/dL Creatinine (0.66-1.25) mg/dL Glucose (74-99) mg/dL POC Glucose (mg/dL) 122 H (75-99) mg/dL Total Bilirubin (0.2-1.3) mg/dL AST (17-59) U/L Total Protein (6.3-8.2) g/dL Albumin (3.5-5.0) g/dL Laboratory Results WBC 13.7 k/uL (3.8-10.6) H 08/11/16 06:57 RBC 2.86 m/uL (4.30-5.90) L 08/11/16 06:57 Hgb 8.8 gm/dL (13.0-17.5) L 08/11/16 06:57 Hct 26.3 % (39.0-53.0) L 08/11/16 06:57 MCV 91.7 fL (80.0-100.0) 08/11/16 06:57 MCH 30.7 pg (25.0-35.0) 08/11/16 06:57 MCHC 33.5 g/dL (31.0-37.0) 08/11/16 06:57 RDW 19.4 % (11.5-15.5) H 08/11/16 06:57 Plt Count 164 k/uL (150-450) 08/11/16 06:57 Neutrophils % 88 % 08/09/16 07:35 Neutrophils % (Manual) 81.0 % 07/29/16 14:10 Band Neutrophils % 4.0 % 07/29/16 14:10 Lymphocytes % 6 % 08/09/16 07:35 Lymphocytes % (Manual) 9.0 % 07/29/16 14:10 Monocytes % 4 % 08/09/16 07:35 Monocytes % (Manual) 2.0 % 07/29/16 14:10 Eosinophils % 1 % 08/09/16 07:35 Eosinophils % (Manual) 4.0 % 07/29/16 14:10 Basophils % 0 % 08/09/16 07:35 Myelocytes % 0.5 % 07/26/16 06:10 Neutrophils # 9.7 k/uL (1.3-7.7) H 08/09/16 07:35 Neutrophils # (Manual) 12.2 k/uL (1.3-7.7) H 07/29/16 14:10 Lymphocytes # 0.6 k/uL (1.0-4.8) L 08/09/16 07:35 Lymphocytes # (Manual) 1.3 k/uL (1.0-4.8) 07/29/16 14:10 Monocytes # 0.5 k/uL (0-1.0) 08/09/16 07:35 Monocytes # (Manual) 0.3 k/uL (0-1.0) 07/29/16 14:10 Eosinophils # 0.1 k/uL (0-0.7) 08/09/16 07:35 Eosinophils # (Manual) 0.6 k/uL (0-0.7) 07/29/16 14:10 Basophils # 0.0 k/uL (0-0.2) 08/09/16 07:35 Nucleated RBCs 0 /100 WBC (0-0) 07/29/16 14:10 Manual Slide Review Performed 08/04/16 05:45 Polychromasia Present 07/29/16 14:10 Hypochromasia Slight 08/10/16 06:37 Poikilocytosis Slight 08/11/16 06:57 Poikilocytosis (manual Present 07/26/16 06:10 Anisocytosis Slight 08/11/16 06:57 Macrocytosis Slight 08/10/16 06:37 PT 13.0 sec (9.0-12.0) H 08/09/16 07:35 INR 1.3 (<1.1) 08/09/16 07:35 APTT 46.6 sec (22.0-30.0) H 08/09/16 07:35 Fibrinogen 206 mg/dL (200-500) 07/29/16 14:10 Sample Site [place] 08/05/16 21:25 ABG pH 7.46 (7.35-7.45) H 08/05/16 21:25 ABG pCO2 37 mmHg (35-45) 08/05/16 21:25 ABG pO2 111 mmHg (83-108) H 08/05/16 21:25 ABG HCO3 25 mmol/L (21-25) 08/05/16 21:25 ABG Total CO2 27 mmol/L (19-24) H 08/05/16 21:25 ABG O2 Saturation 98.0 % (94-97) H 08/05/16 21:25 ABG Base Excess 1.8 mmol/L 08/05/16 21:25 FiO2 40 % 08/05/16 21:25 Sodium 138 mmol/L (137-145) 08/11/16 06:57 Potassium 5.1 mmol/L (3.5-5.1) 08/11/16 06:57 Chloride 103 mmol/L (98-107) 08/11/16 06:57 Carbon Dioxide 22 mmol/L (22-30) 08/11/16 06:57 Anion Gap 13 mmol/L 08/11/16 06:57 BUN 46 mg/dL (9-20) H 08/11/16 06:57 Creatinine 3.49 mg/dL (0.66-1.25) H 08/11/16 06:57 Est GFR (MDRD) Af Amer 21 (>60 ml/min/1.73 sqM) 08/11/16 06:57 Est GFR (MDRD) Non-Af 17 (>60 ml/min/1.73 sqM) 08/11/16 06:57 Glucose 101 mg/dL (74-99) H 08/11/16 06:57 POC Glucose (mg/dL) 122 mg/dL (75-99) H 08/11/16 11:56 POC Glu Fashion Intern ID Raheem Saunders 08/11/16 11:[address] Glu mg/dL 111 mg/dL 07/25/16 06:21 Hemoglobin A1c 5.5 % (4.2-6.1) 07/25/16 06:21 Calcium 9.8 mg/dL (8.4-10.2) 08/11/16 06:57 Ionized Calcium Lance 4.5 mg/dL (4.5-5.3) 08/05/16 04:55 Phosphorus 4.4 mg/dL (2.5-4.5) 08/09/16 07:35 Magnesium 2.2 mg/dL (1.6-2.3) 08/09/16 07:35 Iron 30 ug/dL (49-181) L 07/27/16 05:54 TIBC 273 ug/dL (261-462) 07/27/16 05:54 % Saturation 11.0 % (20-50) L 07/27/16 05:54 Total Bilirubin 1.4 mg/dL (0.2-1.3) H 08/11/16 06:57 AST 70 U/L (17-59) H 08/11/16 06:57 ALT 56 U/L (21-72) 08/11/16 06:57 Alkaline Phosphatase 90 U/L (38-126) 08/11/16 06:57 NT-Pro-B Natriuret Pep 32351 pg/mL 07/25/16 06:21 Total Protein 6.1 g/dL (6.3-8.2) L 08/11/16 06:57 Albumin 3.1 g/dL (3.5-5.0) L 08/11/16 06:57 Triglycerides 78 mg/dL (<150) 07/26/16 06:10 Cholesterol 143 mg/dL (<200) 07/26/16 06:10 LDL Cholesterol, Calc 72 mg/dL (0-99) 07/26/16 06:10 HDL Cholesterol 55 mg/dL (40-60) 07/26/16 06:10 TSH 3.000 mIU/L (0.465-4.680) 07/26/16 06:10 Urine Color Light Yellow 07/25/16 20:46 Urine Appearance Clear (Clear) 07/25/16 20:46 Urine pH 8.0 (5.0-8.0) 07/25/16 20:46 Ur Specific [place] 1.007 (1.001-1.035) 07/25/16 20:46 Urine Protein 2+ (Negative) H 07/25/16 20:46 Urine Glucose (UA) 1+ (Negative) H 07/25/16 20:46 Urine Ketones Negative (Negative) 07/25/16 20:46 Urine Blood Trace (Negative) H 07/25/16 20:46 Urine Nitrite Negative (Negative) 07/25/16 20:46 Urine Bilirubin Negative (Negative) 07/25/16 20:46 Urine Urobilinogen <2.0 mg/dL (<2.0) 07/25/16 20:46 Ur Leukocyte Esterase Negative (Negative) 07/25/16 20:46 Urine RBC <1 /hpf (0-5) 07/25/16 20:46 Urine WBC <1 /hpf (0-5) 07/25/16 20:46 Ur Squamous Epith Cells <1 /hpf (0-4) 07/25/16 20:46 Urine Bacteria Rare /hpf (None) H 07/25/16 20:46 Stool Occult Blood Positive (Negative) 07/25/16 20:46 Random Vancomycin 9.5 ug/mL 07/30/16 06:00 c-ANCA <1:20 Titer (<1:20) 07/31/16 08:45 p-ANCA <1:20 Titer (<1:20) 07/31/16 08:45 Hepatitis A IgM Ab NEGATIVE 07/26/16 06:10 Hep Bs Antigen Negative 07/26/16 06:10 Hep B Core IgM Ab NEGATIVE 07/26/16 06:10 Hep C IgG Ab Negative (Negative) 07/26/16 06:10 Virus Source See Below 08/01/16 16:15 Viral Test See Below 08/01/16 16:15 Virus Analysis Interp See Below 08/01/16 16:15 Blood Type B Positive 08/03/16 08:00 Blood Type Confirm B Positive 07/27/16 05:59 Blood Type Recheck No 08/03/16 08:00 Antibody Screen NEGATIVE 08/03/16 08:00 Crossmatch See Detail 08/03/16 08:00 Transfuse Plasma 07/29/2016 07/29/16 12:59 Transfuse Platelets 07/29/2016 07/29/16 13:00 Spec Expiration Date 08/06/2016 - 229908/03/16 08:00 Microbiology 07/31/16 05:55 Blood Blood Culture - Final No Growth after 144 hours 07/31/16 05:55 Blood Blood Culture - Final No Growth after 144 hours 08/01/16 16:15 Bronchial Washings - Left Gram Stain - Final 08/01/16 16:15 Bronchial Washings - Left Bronchial Washings Culture - Final Pseudomonas aeruginosa 08/01/16 16:15 Bronchial Washings - Left Acid Fast Bacilli Smear - Final 08/01/16 16:15 Bronchial Washings - Left Acid Fast Bacilli Culture - Preliminary 08/01/16 16:15 Bronchial Washings - Left Fungal Culture - Preliminary 07/25/16 20:46 Urine,Voided Urine Culture - Final Assessment and Plan (1) Non-STEMI (non-ST elevated myocardial infarction) Status: Acute (2) Diabetic foot ulcer associated with type 2 diabetes mellitus Narrative/Plan: The total contact cast is in reapplied to the left leg. Doing well. Continues to recover from his cardiovascular surgery. 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 BAL that showed evidence of pseudomonas aeruginosa and is being treated with piperacillin tazobactam. The plan a 7 day course of that. Continue ongoing supportive care. His neurological status continues to improve. The pseudoaneurysm to the right groin continues to heal, ecchymosis is improving. Daily improvement is being recorded. We'll go to inpatient rehab at discharge. Has been tolerating dialysis without difficulties. Patient is complaining of some pain to his coccyx and buttocks. No ulcerations are seen. The zinc protective ointment is applied. Cushioning is obtained for his chair in his bed. As discomforts. The patient's relates when he is at dialysis does utilize a cushion on his chair because he does have pain when he sits in a chair. This is not new. Status: Acute
--- NOTE | 2016-08-11 15:47 | P.PN ---
Progress Note - Text CV Surgery Nursing Principal diagnosis: Non-ST elevation myocardial infarction. POD #16 flexible nasal fiberoptic endoscopy POD #13 non-aortic clamp off pump double coronary artery bypass grafting using the left internal mammary artery to the left anterior descending artery and reverse saphenous vein graft from the aorta to the posterior descending artery. Endoscopic harvesting of the right greater saphenous vein. Intraoperative transesophageal echocardiogram and epi-aortic scanning. Intraoperative graft flow measurements using the Medistim machine. Pt had intraparenchymal hemorrhage with increase oxygen demand after surgery requiring bronchoscopy. POD #10 bronchoscopy and bronchial alveolar lavage with bronchial washings demonstrate infection with pseudomonas, placed on IV zosyn, infectious disease following. Patient awake and alert, no distress noted. He is complaining of generalized weakness. He is sitting up to bedside chair. He is complaining of right shoulder pain and weakness, his states that he has had this pain prior to surgery. Vital Signs: Afebrile Vital Signs - 24 hr 08/10/16 08/10/16 08/10/16 16:00 16:53 17:04 Temperature 98.3 F Pulse Rate 80 80 Pulse Rate [ 82 Pulse Oximetery ] Respiratory 18 Rate Blood Pressure 93/43 [Right Arm] O2 Sat by Pulse 99 Oximetry 08/10/16 08/10/16 08/10/16 20:00 20:37 20:48 Temperature 96.9 F L Pulse Rate 84 84 Pulse Rate [ 95 Pulse Oximetery ] Respiratory 16 Rate Blood Pressure 110/63 [Right Arm] O2 Sat by Pulse 98 Oximetry 08/10/16 08/11/16 08/11/16 23:50 00:00 03:59 Temperature 97.1 F L 97.1 F L 97 F L Pulse Rate Pulse Rate [ 84 84 82 Pulse Oximetery ] Respiratory 16 16 16 Rate Blood Pressure 61/39 99/49 102/47 [Right Arm] O2 Sat by Pulse 86 L 97 100 Oximetry 08/11/16 08/11/16 08/11/16 08:00 08:35 08:50 Temperature 97 F L Pulse Rate 88 88 Pulse Rate [ 79 Pulse Oximetery ] Respiratory 16 Rate Blood Pressure 93/49 [Right Arm] O2 Sat by Pulse 95 Oximetry Labs: Short CBC 08/11/16 Range/Units 06:57 WBC 13.7 H (3.8-10.6) k/uL Hgb 8.8 L (13.0-17.5) gm/dL Hct 26.3 L (39.0-53.0) % Plt Count 164 (150-450) k/uL BMP 08/11/16 06:57 Sodium 138 Potassium 5.1 Chloride 103 Carbon Dioxide 22 BUN 46 H Creatinine 3.49 H Glucose 101 H Calcium 9.8 Liver Function 08/11/16 Range/Units 06:57 Total Bilirubin 1.4 H (0.2-1.3) mg/dL AST 70 H (17-59) U/L ALT 56 (21-72) U/L Alkaline Phosphatase 90 (38-126) U/L Albumin 3.1 L (3.5-5.0) g/dL Microbiology 07/31/16 05:55 Blood Blood Culture - Final No Growth after 144 hours 07/31/16 05:55 Blood Blood Culture - Final No Growth after 144 hours 08/01/16 16:15 Bronchial Washings - Left Gram Stain - Final 08/01/16 16:15 Bronchial Washings - Left Bronchial Washings Culture - Final Pseudomonas aeruginosa 08/01/16 16:15 Bronchial Washings - Left Acid Fast Bacilli Smear - Final 08/01/16 16:15 Bronchial Washings - Left Acid Fast Bacilli Culture - Preliminary 08/01/16 16:15 Bronchial Washings - Left Fungal Culture - Preliminary 07/25/16 20:46 Urine,Voided Urine Culture - Final Lungs: scattered rhonchi throughout, diminished bilateral bases. Respirations are unlabored. O2 sat: 95% on 3 L nasal cannula. I/S: 1000 mL, reviewed with the patient the importance of using his incentive spirometry every hour while awake. the patient did demonstrate good use on his incentive spirometry. Heart: S1S2,regular rhythm and rate, positive systolic murmur. Remote telemetry showing normal sinus rhythm heart rate 76. Sternum stable, chest incision clean with silverlon dressing clean and dry. Right leg incisions clean dry and well approximated. No drainage noted. knee-high DIONI hose and sequential compression devices in place right lower extremity. Left lower leg contact cast and place. Abdomen: Soft, Positive bowel sounds present in all 4 quadrants, he is having episodes of loose stools. CBGs: 106-131 mg/dL in the last 24 hours. U/O: hemodialysis dependent, patient's left upper extremity AV fistula with positive bruit, positive thrill. He had hemodialysis yesterday with 1.3 L of fluid removed. 24 hr Total: Intake & Output 08/09/16 08/10/16 08/11/16 08/12/16 06:59 06:59 06:59 06:59 Intake Total 968.0 198 680 Output Total 65 Balance 903.0 198 680 Weight 83.1 kg 82.7 kg 81 kg Active Medications Hydrocodone Bitart/Acetaminophen ([place] 5-325) 2 each PO Q4HR PRN PRN Reason: Severe Pain Last Admin: 08/10/16 22:00 Dose: 2 each Hydrocodone Bitart/Acetaminophen ([place] 5-325) 1 each PO Q4HR PRN PRN Reason: Moderate Pain Last Admin: 08/11/16 09:23 Dose: 1 each Albuterol/Ipratropium (Duoneb 0.5 Mg-3 Mg/3 Ml Soln) 3 ml INHALATION RT-Q2H PRN PRN Reason: Shortness Of Breath Or Wheezing Albuterol/Ipratropium (Duoneb 0.5 Mg-3 Mg/3 Ml Soln) 3 ml INHALATION RT-QID [facility] Last Admin: 08/11/16 08:35 Dose: 3 ml Amiodarone HCl (Cordarone) 200 mg PO BID [facility] Last Admin: 08/11/16 09:20 Dose: 200 mg Aspirin (Aspirin) 81 mg PO DAILY [facility] Last Admin: 08/11/16 09:20 Dose: 81 mg Atorvastatin Calcium (Lipitor) 40 mg PO DAILY [facility] Last Admin: 08/11/16 09:20 Dose: 40 mg Benzocaine/Menthol (Cepacol Lozenge) 1 each MUCOUS MEM Q2H PRN PRN Reason: Sore Throat Bisacodyl (Dulcolax) 10 mg RECTAL DAILY PRN PRN Reason: Constipation Calcium Acetate (Phoslo) 667 mg PO TID-W/MEALS [facility] Last Admin: 08/11/16 07:57 Dose: 667 mg Darbepoetin Kevin (Aranesp) 40 mcg SQ Q7D [facility] Last Admin: 08/08/16 17:24 Dose: 40 mcg Diphenoxylate HCl/Atropine (Lomotil Oral Soln) 2.5 ml PO QID PRN PRN Reason: Diarrhea Last Admin: 08/11/16 03:02 Dose: 2.5 ml Folic Acid (Folic Acid) 1 mg PO DAILY@1200 [facility] Last Admin: 08/10/16 12:52 Dose: 1 mg Heparin Sodium (Porcine) (Heparin) 5,000 unit SQ Q8HR [facility] Last Admin: 08/11/16 07:57 Dose: 5,000 unit Hydralazine HCl (Apresoline) 10 mg IVP Q6HR PRN PRN Reason: Blood Pressure - High Last Admin: 08/06/16 10:27 Dose: 10 mg Piperacillin/Tazobactam/ (Dextrose 3.375 gm/ IV Solution) 50 mls @ 12.5 mls/hr IVPB Q12HR [facility] Last Admin: 08/11/16 09:19 Dose: 12.5 mls/hr Insulin Human Lispro (Humalog) 0 unit SQ ACHS [facility] PRN Reason: Protocol Last Admin: 08/11/16 12:37 Dose: Not Given Lisinopril (Zestril) 10 mg PO DAILY [facility] Last Admin: 08/11/16 09:20 Dose: 10 mg Magnesium Hydroxide (Milk Of Magnesia) 2,400 mg PO BID PRN PRN Reason: Constipation Metoclopramide HCl (Reglan) 10 mg IVP Q4H PRN PRN Reason: Nausea And Vomiting Metoprolol Tartrate (Lopressor) 25 mg PO BID [facility] Last Admin: 08/11/16 09:20 Dose: 25 mg Miscellaneous Information (Magnesium Per Protocol) 1 each MISCELLANE DAILY PRN ; Protocol PRN Reason: Per Protocol Miscellaneous Information (Phosphorus Per Protocol) 1 each MISCELLANE DAILY PRN ; Protocol PRN Reason: Per Protocol Miscellaneous Information (Potassium Per Protocol) 1 each MISCELLANE DAILY PRN ; Protocol PRN Reason: Per Protocol Multivitamins (Theragran) 1 each PO DAILY@1200 [facility] Nystatin (Mycostatin Oral Susp) 500,000 unit PO QID [facility] Last Admin: 08/11/16 09:20 Dose: 500,000 unit Ondansetron HCl (Zofran) 4 mg IVP Q6HR PRN PRN Reason: Nausea And Vomiting Pantoprazole Sodium (Protonix) 40 mg PO AC-BRKFST [facility] Last Admin: 08/11/16 06:52 Dose: Not Given Senna/Docusate Sodium (Senokot-S) 2 each PO HS [facility] Last Admin: 08/10/16 22:17 Dose: Not Given Sodium Chloride (Saline Flush) 10 ml IV BID [facility] Last Admin: 08/11/16 09:26 Dose: 10 ml Sodium Chloride (Saline Flush) 20 ml IV Q4HR PRN PRN Reason: PICC Line Sodium Chloride (Saline Flush) 10 ml IV WEEKLY [facility] Last Admin: 08/09/16 09:20 Dose: 10 ml Sodium Chloride (Saline Flush) 10 ml IV Q4HR PRN PRN Reason: PICC Line Sodium Chloride (Saline Flush) 10 ml IV Q12HR [facility] Last Admin: 08/11/16 09:26 Dose: 10 ml Thiamine HCl (Vitamin B-1) 100 mg PO DAILY@1200 [facility] Plan: 1. Continue aspirin, Lipitor, heparin SQ, lisinopril, lopressor and amiodarone. 2. nephrology on board for hemodialysis management. 3. PT/OT to work with patient, out of bed to chair today. 4. Continue Paul, Dr. Gordon from infectious disease is following. 5. Encourage incentive spirometry use every hour while awake. 6. Will continue to monitor labs, chest x-rays. 7. Insulin management per primary service. 8. GI/DVT prophylaxis. 9. Wound care center placed patient's total contact cast and will need to be changed on 08/14/2016.. 10. Dr. Cary for pulmonary management. 11. Discontinue Zosyn, start Flagyl 500 mg IV piggyback 3 times a day. Collect stool specimen for C. diff. 12. Case management/social work on for discharge planning. Will need to be evaluated for discharge to rehab facility or possibly select specialty for long- term acute care needs.
[2016-08-11 16:42] LABS: Glucose,Whole Blood 148 mg/dL (75-99)
--- NOTE | 2016-08-11 17:13 | PN ---
80-year-old gentleman who is status post bypass grafting. He had a very arianne postoperative course. He was very slow to recover and slow to wean. He was extubated a week ago by Dr. Santa on Friday. After that he required BiPAP therapy. He has been undergoing hemodialysis on a daily basis. He does have a history of end-stage renal disease. Through a lot of work from all the nurses and doctors, he did improve. He has done well. He was transferred out to the sixth floor. He has got a history of end-stage renal disease, currently hemodialysis, hyperlipidemia, hypertension, non- ST segment elevation myocardial infarction. Type 2 diabetes, diabetic foot ulcer, end-stage renal disease and a number of other major medical problems. All in all though he is doing much improved. The patient is more awake and alert. Initially he was very drowsy and very lethargic. CURRENT VITAL SIGNS: Temperature 97, heart rate 79, respiratory 16, blood pressure 100/59, 3 liters saturation 95%. Appears in no acute distress. HEENT examination is unremarkable. Mucous membranes are moist. No oral lesions. A little bit of crusting around his nose. Neck is supple. Full range of motion. No adenopathy or thyromegaly. Neck veins are flat. Cardiovascular examination reveals regular rhythm and rate. S1, S2 normal. No S3, S4, or murmur. Lungs reveal a few scattered rhonchi. No wheezes or crackles. Breath sounds are diminished. Does not really take deep breaths. ABDOMEN: Soft. Bowel sounds are heard. EXTREMITIES: Intact. Slight edema. No clubbing or cyanosis. SKIN: Without rash. A few areas of ecchymoses. Neurologic examination is nonfocal. Microbiology shows pseudomonas aeruginosa in the bronch wash. Labs are reviewed. White count 13.7, hemoglobin 8.8, hematocrit 26.3, platelet count is normal. Sodium, potassium, chloride, and CO2 all normal. BUN and creatinine were 46 and 3.59. His total bilirubin was 1.4. Chest x-ray shows a small left-sided pleural effusion. X-ray has improved dramatically over the course of many days. ASSESSMENT: 1. Status post bypass grafting with arianne postoperative course and the need for BiPAP therapy and daily hemodialysis. 2. Status post recovery from postoperative respiratory failure. 3. Non- ST segment elevation myocardial infarction. 4. Hyperlipidemia. 5. Hypertension. 6. Three time a week hemodialysis for end-stage renal disease, but more frequent dialysis in last week or so. 7. Diabetic foot ulcer. 8. Poor mental status, likely related to encephalopathy from his prolonged hospitalization, slowly improving. PLAN: Overall, the patient seemed to be relatively well. He made significant recovery in the last 3 or 4 days. Extubated just last Friday. Will continue to follow. Medications and labs and x-rays are all reviewed.
[2016-08-11] MEDS: metroNIDAZOLE-NS PMX 500 MG in SALINE 1 100ML.BAG IVPB SCH ×2 (18:41→23:00)
--- NOTE | 2016-08-11 19:09 | P.PN ---
Subjective Principal diagnosis: Status post CABG, renal failure and renal failure This is 80-year-old gentleman is status post coronary bypass surgery. Postop course was complicated by intraoperative bleeding requiring bronchoscopy and prolonged ventilation. Patient is currently extubated and is on selective care. Patient is sitting in the chair and seemed to be uncomfortable at this time. He is eating better. Complains of being fatigued. Patient is maintaining sinus rhythm. Patient is on dialysis. He is also under ID care therapy for the treatment of ulcers and patient may have to go to rehab program. We'll continue current medical therapy Objective - Vital Signs Vital signs: Vital Signs Temp 97.3 F L 08/11/16 16:00 Pulse 84 08/11/16 16:23 Resp 16 08/11/16 16:00 BP 89/48 08/11/16 16:00 Pulse Ox 99 08/11/16 16:00 Intake & Output 08/11/16 08/11/16 08/12/16 06:59 18:59 06:59 Intake Total 330 60 Balance 330 60 Weight 81 kg Intake: IV 280 0.9 flush 30 Sodium Chloride 0.9% 250 250 ml @ 999 mls/hr IV .Q16M ONE Rx#:[id number] Intake, IV Titration 50 Amount Piperacillin-Tazobactam 3 50 .375 gm In Dextrose/Water 1 50ml.bag @ 12.5 mls/hr IVPB Q12HR [facility] Rx#: [id number] Oral 60 Other: Voiding Method Diaper Diaper # Bowel Movements 1 1 ABP, PAP, CO, CI - Last Documented Arterial Blood Pressure 156/51 Pulmonary Artery Pressure 40/30 Cardiac Output 6.4 Cardiac Index 3.3 - Exam GENERAL EXAM: Patient is alert and oriented and doesn't appear to be in any acute distress HEENT: Normocephalic. Normal reaction of pupils, equal size, normal range of extraocular motion. No erythema or exudates in the throat. NECK: No masses, no nuchal rigidity. CHEST: No chest wall deformity. LUNGS: Seem to be clear. HEART: S1 and S2 normal with no audible mumurs or gallops. Regular rhythm, . ABDOMEN: No hepatosplenomegaly, normal bowel sounds, no guarding or rigidity. SKIN: No rashes CENTRAL NERVOUS SYSTEM: Much more alert. EXTREMITIES: No cyanosis, clubbing or edema. - Labs CBC & Chem 7: 08/11/16 06:57 08/11/16 06:57 Labs: Abnormal Lab Results - Last 24 Hours (Table) 08/10/16 08/11/16 08/11/16 Range/Units 21:37 01:52 06:04 WBC (3.8-10.6) k/uL RBC (4.30-5.90) m/uL Hgb (13.0-17.5) gm/dL Hct (39.0-53.0) % RDW (11.5-15.5) % BUN (9-20) mg/dL Creatinine (0.66-1.25) mg/dL Glucose (74-99) mg/dL POC Glucose (mg/dL) 107 H 109 H 106 H (75-99) mg/dL Total Bilirubin (0.2-1.3) mg/dL AST (17-59) U/L Total Protein (6.3-8.2) g/dL Albumin (3.5-5.0) g/dL 08/11/16 08/11/16 08/11/16 Range/Units 06:57 06:57 11:56 WBC 13.7 H (3.8-10.6) k/uL RBC 2.86 L (4.30-5.90) m/uL Hgb 8.8 L (13.0-17.5) gm/dL Hct 26.3 L (39.0-53.0) % RDW 19.4 H (11.5-15.5) % BUN 46 H (9-20) mg/dL Creatinine 3.49 H (0.66-1.25) mg/dL Glucose 101 H (74-99) mg/dL POC Glucose (mg/dL) 122 H (75-99) mg/dL Total Bilirubin 1.4 H (0.2-1.3) mg/dL AST 70 H (17-59) U/L Total Protein 6.1 L (6.3-8.2) g/dL Albumin 3.1 L (3.5-5.0) g/dL 08/11/16 Range/Units 16:40 WBC (3.8-10.6) k/uL RBC (4.30-5.90) m/uL Hgb (13.0-17.5) gm/dL Hct (39.0-53.0) % RDW (11.5-15.5) % BUN (9-20) mg/dL Creatinine (0.66-1.25) mg/dL Glucose (74-99) mg/dL POC Glucose (mg/dL) 148 H (75-99) mg/dL Total Bilirubin (0.2-1.3) mg/dL AST (17-59) U/L Total Protein (6.3-8.2) g/dL Albumin (3.5-5.0) g/dL Assessment and Plan (1) Status post aorto-coronary artery bypass graft Status: Acute (2) End-stage renal disease on hemodialysis Status: Acute (3) Hyperlipidemia Status: Acute (4) Hypertension Status: Acute (5) Non-STEMI (non-ST elevated myocardial infarction) Status: Acute Plan: Since activity to be gradually increased. Patient is sitting in the chair today. Continue physical therapy. Nephrology is following and patient is getting dialysis. Patient may have to go to rehab program.
[2016-08-11 19:55] LABS: Glucose,Whole Blood 110 mg/dL (75-99)
[2016-08-11] MEDS: SENNOSIDES-DOCUSATE SODIUM 1 EACH TAB PO SCH (20:08)
[2016-08-12] MEDS: HYDROcodone/APAP 5-325MG 1 EACH TAB PO PRN ×5 (00:11→18:42)
[2016-08-12] MEDS: HEPARIN SODIUM,PORCINE 5,000 UNIT/ML 1 ML VIAL SQ SCH ×3 (00:12→16:48)
[2016-08-12 01:53] LABS: Glucose,Whole Blood 130 mg/dL (75-99)
[2016-08-12] MEDS: metroNIDAZOLE-NS PMX 500 MG in SALINE 1 100ML.BAG IVPB SCH ×3 (04:00→16:48)
[2016-08-12 06:44] LABS: Anisocytosis Slight; CH 30.5; CHCM 32.4; HCT 24.3 % (39.0-53.0); HDW 3.55; Hypochromasia Slight; MCH 31.2 pg (25.0-35.0); MCHC 32.9 g/dL (31.0-37.0); MCV 94.9 fL (80.0-100.0); Macrocytosis Slight; Mean Platelet Volume 7.9; Poikilocytosis Slight; RBC 2.56 m/uL (4.30-5.90); RDW 19.5 % (11.5-15.5); WBC 14.9 k/uL (3.8-10.6)
[2016-08-12] MEDS: INSULIN LISPRO (humaLOG) 300 UNIT/3 ML VIAL SQ SCH ×4 (06:51→21:10)
[2016-08-12 07:05] LABS: Glucose,Whole Blood 117 mg/dL (75-99)
[2016-08-12 07:47] LABS: Calcium 8.6 mg/dL (8.4-10.2); Potassium 3.6 mmol/L (3.5-5.1); Total Protein 5.9 g/dL (6.3-8.2)
[2016-08-12] MEDS: LISINOPRIL 10 MG TAB PO SCH (08:19)
[2016-08-12] MEDS: METOPROLOL TARTRATE 25 MG TAB PO SCH (08:19)
[2016-08-12] MEDS: ATORVASTATIN 40 MG TAB PO SCH (08:21)
[2016-08-12] MEDS: ASPIRIN 81 MG CHEW PO SCH (08:21)
[2016-08-12] MEDS: NYSTATIN 100,000 UNIT/ML SUSP 500,000 UNIT/5 ML CUP PO SCH ×4 (08:21→20:25)
[2016-08-12] MEDS: PANTOPRAZOLE 40 MG TABLET PO SCH (08:21)
[2016-08-12] MEDS: AMIODARONE 200 MG TAB PO SCH ×2 (08:21→20:24)
[2016-08-12] MEDS: CALCIUM ACETATE 667 MG CAP PO SCH ×3 (08:21→18:41)
--- NOTE | 2016-08-12 08:46 | XR ---
EXAMINATION TYPE: XR chest 1V portable DATE OF EXAM: 08/12/2016 7:45 AM COMPARISON: 08/11/2016 HISTORY: Postop CABG TECHNIQUE: Single frontal view of the chest is obtained. FINDINGS: Bilateral infiltrate and pleural effusion seen. Central line noted with postsurgical jones es. Arthropathy of the shoulders. No pneumothorax. Heart prominent but stable. Chronic rib deformity seen. IMPRESSION: 1. Bilateral infiltrate and small effusion.
[2016-08-12] MEDS: IPRATROPIUM-ALBUTEROL 3 ML NEB INHALATION SCH ×4 (09:18→20:25)
--- NOTE | 2016-08-12 09:43 | PN ---
DATE OF SERVICE: 08/11/2016 This 80 -year-old gentleman admitted with acute myocardial infarction also had coronary artery disease, coronary artery bypass grafting. The patient is improving significantly. The patient is sitting by the bedside. Patient is complaining of generalized weakness and tiredness. Cardiothoracic surgery is following the patient. No chest pain. No palpitations. No fever. The patient received hemodialysis. On exam, alert and oriented times three. Pulse 86. Blood pressure 89/48. Respiratory rate 16. Temperature 97.2. Pulse ox 97% on 3 L. HEENT: Conjunctivae normal. NECK: No jugular venous distention. CARDIOVASCULAR: S1, S2 muffled. RESPIRATORY: Breath sounds diminished at the bases. A few scattered rhonchi and crackles. ABDOMEN: Soft. Nontender. LEGS: No edema. No swelling. Nervous system: No focal deficits. LABS: WBC 13.7, hemoglobin is 8.8. ASSESSMENT: 1. Acute non-ST segment elevation myocardial infarction present on admission, status post coronary artery bypass grafting. 2. Acute hypoxic respiratory failure secondary to pulmonary edema status post mechanical ventilation on BiPAP. 3. Chronic kidney disease, stage V, on hemodialysis. 4. Mild aortic stenosis. 5. Generalized asthenia. 6. Gait dysfunction. 7. Hypertension. 8. Hyperlipidemia. 9. Congestive heart failure with acute exacerbation, with acute on chronic systolic dysfunction. 10. Coronary artery disease, status post coronary artery bypass grafting. 11. Metabolic bone disease. 12. Hypophosphatemia secondary to end-stage renal disease. 13. Anemia of chronic disease. 14. Hyponatremia. 15. Hypovolemia. 16. Possible pneumonia of the left lower lobe status post bronchoscopy showing Pseudomonas aeruginosa. 17. Left mainstem bronchus blood clot leading to left lung collapse and bronchoscopy. 18. Hypoalbuminemia. 19. FULL CODE. RECOMMENDATIONS AND DISCUSSION: Recommend to continue current medications, continue with monitoring, symptomatic treatment. At this time, I recommend PT, OT evaluation, continue incentive spirometry. Continue the rest of the medications. I would also recommend possible inpatient rehab select specialty versus ECF. Discussed with family at length and closely follow with critical surgery. Further recommendations to follow. MTDD
[2016-08-12] MEDS ORDERED: POTASSIUM CHLORIDE ER 20 MEQ TAB.ER PO STA (10:04)
--- NOTE | 2016-08-12 10:31 | P.PN ---
Subjective Patient seen in follow-up for end-stage renal disease. He is maintained on hemodialysis on a Friday schedule. He was extubated August 04 and is currently on a nasal cannula. He's been undergoing dialysis almost on a daily basis and is now back on Friday schedule. He underwent 2 bronchoscopies this admission revealing left lung bleeding. Bronchial washings positive for Pseudomonas. He is communicating well. Currently having breakfast. He underwent hemodialysis Friday with 1.3 L ultrafiltration. He did get up to chair this morning. Vital signs are stable. General: The patient appeared well nourished and normally developed. HEENT: Head exam is unremarkable. Neck is without jugular venous distension. LUNGS: Diffuse rhonchi. Breath sounds decreased. HEART: Rate and Rhythm are regular. First and second heart sounds normal. No murmurs, rubs or gallops. ABDOMEN: Abdominal exam reveals normal bowel sounds. Non-tender and non- distended. No evidence of peritonitis. EXTREMITITES: Trace edema. Objective - Vital Signs Vital signs: Vital Signs Temp 97.2 F L 08/12/16 08:00 Pulse 83 08/12/16 08:00 Resp 18 08/12/16 08:00 BP 96/44 08/12/16 08:00 Pulse Ox 96 08/12/16 08:00 Intake & Output 08/11/16 08/12/16 08/12/16 18:59 06:59 18:59 Intake Total 60 390 Balance 60 390 Weight 80.5 kg Intake: IV 40 0.9 flush 40 Oral 60 350 Other: Voiding Method Diaper Diaper Diaper # Voids 1 # Bowel Movements 1 ABP, PAP, CO, CI - Last Documented Arterial Blood Pressure 156/51 Pulmonary Artery Pressure 40/30 Cardiac Output 6.4 Cardiac Index 3.3 - Labs CBC & Chem 7: 08/12/16 06:23 08/12/16 06:23 Labs: Abnormal Lab Results - Last 24 Hours (Table) 08/11/16 08/11/16 08/11/16 Range/Units 11:56 16:40 19:53 WBC (3.8-10.6) k/uL RBC (4.30-5.90) m/uL Hgb (13.0-17.5) gm/dL Hct (39.0-53.0) % RDW (11.5-15.5) % Carbon Dioxide (22-30) mmol/L BUN (9-20) mg/dL Creatinine (0.66-1.25) mg/dL Glucose (74-99) mg/dL POC Glucose (mg/dL) 122 H 148 H 110 H (75-99) mg/dL AST (17-59) U/L Alkaline Phosphatase (38-126) U/L Total Protein (6.3-8.2) g/dL Albumin (3.5-5.0) g/dL 08/12/16 08/12/16 08/12/16 Range/Units 01:51 06:23 06:23 WBC 14.9 H (3.8-10.6) k/uL RBC 2.56 L (4.30-5.90) m/uL Hgb 8.0 L (13.0-17.5) gm/dL Hct 24.3 L (39.0-53.0) % RDW 19.5 H (11.5-15.5) % Carbon Dioxide 21 L (22-30) mmol/L BUN 66 H (9-20) mg/dL Creatinine 5.47 H* (0.66-1.25) mg/dL Glucose 110 H (74-99) mg/dL POC Glucose (mg/dL) 130 H (75-99) mg/dL AST 96 H (17-59) U/L Alkaline Phosphatase 149 H (38-126) U/L Total Protein 5.9 L (6.3-8.2) g/dL Albumin 3.1 L (3.5-5.0) g/dL 08/12/16 Range/Units 06:49 WBC (3.8-10.6) k/uL RBC (4.30-5.90) m/uL Hgb (13.0-17.5) gm/dL Hct (39.0-53.0) % RDW (11.5-15.5) % Carbon Dioxide (22-30) mmol/L BUN (9-20) mg/dL Creatinine (0.66-1.25) mg/dL Glucose (74-99) mg/dL POC Glucose (mg/dL) 117 H (75-99) mg/dL AST (17-59) U/L Alkaline Phosphatase (38-126) U/L Total Protein (6.3-8.2) g/dL Albumin (3.5-5.0) g/dL Assessment and Plan Plan: Assessment: #1. End-stage renal disease maintained on hemodialysis on a Friday schedule via left upper extremity AV graft. #2. 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 #3. Left lung blood clots status post bronchoscopy 2. #4. Anemia. Hemoglobin stable. Plan: Hemodialysis Friday with goal 2 L ultrafiltration as blood pressure tolerates. Maintain Aranesp. Continue antibiotics. Continue with physical therapy. Hold antihypertensives for systolic blood pressure less than 120. Midodrine as needed. Potential discharge to rehab soon.
[2016-08-12] MEDS: DIPHENOX-ATROP 2.5-0.025MG/5ML 60 ML BOTTLE PO PRN (10:39)
[2016-08-12 11:57] LABS: Glucose,Whole Blood 112 mg/dL (75-99)
--- NOTE | 2016-08-12 12:23 | P.PN ---
Progress Note - Text CV Surgery Nursing POD: #17 flexible nasal fiberoptic endoscopy POD #14 off pump double coronary artery bypass graft utilizing the left internal mammary artery to the left anterior descending coronary artery and reverse saphenous vein graft to the posterior descending coronary artery, endoscopic harvesting of the right greater saphenous vein, intraoperative transesophageal echocardiogram and epi-aortic ultrasonography, intraoperative graft flow measurements using the Airbriteim system. POD #11 bronchoscopy and bronchial alveolar lavage with bronchial washings demonstrating infection with Pseudomonas Patient awake and alert, no distress noted, no specific complaints. Vital Signs: Afebrile, T-max 97.3F Vital Signs - 24 hr 08/11/16 08/11/16 08/11/16 16:00 16:12 16:23 Temperature 97.3 F L Pulse Rate 84 84 Pulse Rate [ 86 Pulse Oximetery ] Respiratory 16 Rate Blood Pressure 89/48 [Right Arm] O2 Sat by Pulse 99 Oximetry 08/11/16 08/11/16 08/11/16 20:00 20:53 21:04 Temperature 97.1 F L Pulse Rate 88 88 Pulse Rate [ 94 Pulse Oximetery ] Respiratory 20 Rate Blood Pressure 108/42 [Right Arm] O2 Sat by Pulse 95 Oximetry 08/12/16 08/12/16 08/12/16 00:00 04:00 08:00 Temperature 97.3 F L 96.7 F L 97.2 F L Pulse Rate Pulse Rate [ 87 92 83 Pulse Oximetery ] Respiratory 20 20 18 Rate Blood Pressure 105/41 89/51 96/44 [Right Arm] O2 Sat by Pulse 100 96 96 Oximetry 08/12/16 08/12/16 11:09 11:22 Temperature Pulse Rate 84 84 Pulse Rate [ Pulse Oximetery ] Respiratory Rate Blood Pressure [Right Arm] O2 Sat by Pulse Oximetry Labs: Short CBC 08/12/16 Range/Units 06:23 WBC 14.9 H (3.8-10.6) k/uL Hgb 8.0 L (13.0-17.5) gm/dL Hct 24.3 L (39.0-53.0) % Plt Count 190 (150-450) k/uL BMP 08/12/16 06:23 Sodium 138 Potassium 3.6 Chloride 101 Carbon Dioxide 21 L BUN 66 H Creatinine 5.47 H* Glucose 110 H Calcium 8.6 Liver Function 08/12/16 Range/Units 06:23 Total Bilirubin 1.0 (0.2-1.3) mg/dL AST 96 H (17-59) U/L ALT 69 (21-72) U/L Alkaline Phosphatase 149 H (38-126) U/L Albumin 3.1 L (3.5-5.0) g/dL Microbiology 08/01/16 16:15 Bronchial Washings - Left Fungal Culture - Preliminary 07/31/16 05:55 Blood Blood Culture - Final No Growth after 144 hours 07/31/16 05:55 Blood Blood Culture - Final No Growth after 144 hours 08/01/16 16:15 Bronchial Washings - Left Gram Stain - Final 08/01/16 16:15 Bronchial Washings - Left Bronchial Washings Culture - Final Pseudomonas aeruginosa 08/01/16 16:15 Bronchial Washings - Left Acid Fast Bacilli Smear - Final 08/01/16 16:15 Bronchial Washings - Left Acid Fast Bacilli Culture - Preliminary 07/25/16 20:46 Urine,Voided Urine Culture - Final Lungs: Respirations are even and nonlabored, breath sounds diminished in bilateral bases O2 sat: 94% on 2 L of oxygen delivered via nasal cannula Heart: S1S2, regular rate and rhythm, portable telemetry shows normal sinus rhythm with a rate of 87 Sternum stable, chest incision clean with silverlon dressing clean and dry. Left lower leg cast in place Abdomen: Soft, Positive bowel sounds present in all 4 quadrants. CBGs: 106-130 mg/dL U/O: Minimal urine output, patient is hemodialysis dependent Intake & Output 08/10/16 08/11/16 08/12/16 08/13/16 06:59 06:59 06:59 06:59 Intake Total 198 680 450 Balance 198 680 450 Weight 82.7 kg 81 kg 80.5 kg 80.5 kg Active Medications Hydrocodone Bitart/Acetaminophen ([place]inkelman 5-325) 2 each PO Q4HR PRN PRN Reason: Severe Pain Last Admin: 08/12/16 10:39 Dose: 2 each Hydrocodone Bitart/Acetaminophen (Winkelman 5-325) 1 each PO Q4HR PRN PRN Reason: Moderate Pain Last Admin: 08/12/16 06:45 Dose: 1 each Albuterol/Ipratropium (Duoneb 0.5 Mg-3 Mg/3 Ml Soln) 3 ml INHALATION RT-Q2H PRN PRN Reason: Shortness Of Breath Or Wheezing Albuterol/Ipratropium (Duoneb 0.5 Mg-3 Mg/3 Ml Soln) 3 ml INHALATION RT-QID [facility] Last Admin: 08/12/16 11:09 Dose: 3 ml Amiodarone HCl (Cordarone) 200 mg PO BID [facility] Last Admin: 08/12/16 08:21 Dose: 200 mg Aspirin (Aspirin) 81 mg PO DAILY [facility] Last Admin: 08/12/16 08:21 Dose: 81 mg Atorvastatin Calcium (Lipitor) 40 mg PO DAILY [facility] Last Admin: 08/12/16 08:21 Dose: 40 mg Benzocaine/Menthol (Cepacol Lozenge) 1 each MUCOUS MEM Q2H PRN PRN Reason: Sore Throat Bisacodyl (Dulcolax) 10 mg RECTAL DAILY PRN PRN Reason: Constipation Calcium Acetate (Phoslo) 667 mg PO TID-W/MEALS [facility] Last Admin: 08/12/16 08:21 Dose: 667 mg Darbepoetin Kevin (Aranesp) 40 mcg SQ Q7D [facility] Last Admin: 08/08/16 17:24 Dose: 40 mcg Diphenoxylate HCl/Atropine (Lomotil Oral Soln) 2.5 ml PO QID PRN PRN Reason: Diarrhea Last Admin: 08/12/16 10:39 Dose: 2.5 ml Folic Acid (Folic Acid) 1 mg PO DAILY@1200 [facility] Last Admin: 08/11/16 12:44 Dose: 1 mg Heparin Sodium (Porcine) (Heparin) 5,000 unit SQ Q8HR [facility] Last Admin: 08/12/16 08:21 Dose: 5,000 unit Hydralazine HCl (Apresoline) 10 mg IVP Q6HR PRN PRN Reason: Blood Pressure - High Last Admin: 08/06/16 10:27 Dose: 10 mg Metronidazole 500 mg/ IV (Solution) 100 mls @ 100 mls/hr IVPB Q8HR [facility] Last Admin: 08/12/16 10:39 Dose: 100 mls/hr Insulin Human Lispro (Humalog) 0 unit SQ ACHS [facility] PRN Reason: Protocol Last Admin: 08/12/16 12:10 Dose: Not Given Lisinopril (Zestril) 10 mg PO DAILY [facility] Last Admin: 08/12/16 08:19 Dose: Not Given Magnesium Hydroxide (Milk Of Magnesia) 2,400 mg PO BID PRN PRN Reason: Constipation Metoclopramide HCl (Reglan) 10 mg IVP Q4H PRN PRN Reason: Nausea And Vomiting Metoprolol Tartrate (Lopressor) 25 mg PO BID [facility] Last Admin: 08/12/16 08:19 Dose: Not Given Miscellaneous Information (Magnesium Per Protocol) 1 each MISCELLANE DAILY PRN ; Protocol PRN Reason: Per Protocol Miscellaneous Information (Phosphorus Per Protocol) 1 each MISCELLANE DAILY PRN ; Protocol PRN Reason: Per Protocol Miscellaneous Information (Potassium Per Protocol) 1 each MISCELLANE DAILY PRN ; Protocol PRN Reason: Per Protocol Multivitamins (Theragran) 1 each PO DAILY@1200 [facility] Last Admin: 08/11/16 12:45 Dose: 1 each Nystatin (Mycostatin Oral Susp) 500,000 unit PO QID [facility] Last Admin: 08/12/16 08:21 Dose: 500,000 unit Ondansetron HCl (Zofran) 4 mg IVP Q6HR PRN PRN Reason: Nausea And Vomiting Pantoprazole Sodium (Protonix) 40 mg PO AC-BRKFST [facility] Last Admin: 08/12/16 08:21 Dose: 40 mg Senna/Docusate Sodium (Senokot-S) 2 each PO HS [facility] Last Admin: 08/11/16 20:08 Dose: Not Given Sodium Chloride (Saline Flush) 10 ml IV BID [facility] Last Admin: 08/12/16 08:22 Dose: 10 ml Sodium Chloride (Saline Flush) 20 ml IV Q4HR PRN PRN Reason: PICC Line Sodium Chloride (Saline Flush) 10 ml IV WEEKLY [facility] Last Admin: 08/09/16 09:20 Dose: 10 ml Sodium Chloride (Saline Flush) 10 ml IV Q4HR PRN PRN Reason: PICC Line Sodium Chloride (Saline Flush) 10 ml IV Q12HR [facility] Last Admin: 08/12/16 08:22 Dose: 10 ml Thiamine HCl (Vitamin B-1) 100 mg PO DAILY@1200 [facility] Last Admin: 08/11/16 12:44 Dose: 100 mg Plan: Good progress. Patient remains weak. Plan for transfer to inpatient rehab in 1-2 days if remains stable ID following
[2016-08-12] MEDS ORDERED: NICOTINE POLACRILEX 2 MG GUM BUCCAL PRN (12:51)
[2016-08-12] MEDS ORDERED: NICOTINE 21MG/24HR PATCH TRANSDERM SCH (13:00)
--- NOTE | 2016-08-12 13:52 | P.PN ---
Subjective Principal diagnosis: Status post CABG This is a 80-year-old gentleman who is status post coronary artery bypass grafting surgery. Postoperative course was complicated by intraoperative bleeding requiring bronchoscopy and prolonged ventilation. He is currently extubated and is being followed on the telemetry unit. He was sitting up in the chair at the time of our examination today. Overall his appetite is improving. He seems to be getting stronger. Arrangements are currently being made for the patient to be transferred to [facility] rehab. I pressure today 116/40 with a heart rate of 90. Hemoglobin 8.0, potassium 3.6, BUN 66, creatinine 5.4. Objective - Vital Signs Vital signs: Vital Signs Temp 97.2 F L 08/12/16 08:00 Pulse 96 08/12/16 12:00 Resp 18 08/12/16 12:00 BP 115/47 08/12/16 12:00 Pulse Ox 94 L 08/12/16 12:00 Intake & Output 08/11/16 08/12/16 08/12/16 18:59 06:59 18:59 Intake Total 60 390 350 Balance 60 390 350 Weight 80.5 kg 80.5 kg Intake: IV 40 0.9 flush 40 Intake, IV Titration 100 Amount metroNIDAZOLE-NS PMX 500 100 mg In Saline 1 100ml.bag @ 100 mls/hr IVPB Q8HR [facility] Rx#:[id number] Oral 60 350 250 Other: Voiding Method Diaper Diaper Diaper # Voids 1 2 # Bowel Movements 1 ABP, PAP, CO, CI - Last Documented Arterial Blood Pressure 156/51 Pulmonary Artery Pressure 40/30 Cardiac Output 6.4 Cardiac Index 3.3 - Exam PHYSICAL EXAMINATION: HEENT: Head is atraumatic, normocephalic. Pupils equal, round. Neck is supple. There is no elevated jugular venous pressure. HEART EXAMINATION: Heart S1, S2 normal. No murmur or gallop heard. CHEST EXAMINATION: Lungs are clear with mild diminished air entry to posterior bases. ABDOMEN: Soft, nontender. Bowel sounds are heard. No organomegaly noted. EXTREMITIES: 2+ peripheral pulses with no evidence of peripheral edema and no calf tenderness noted. NEUROLOGIC patient is awake, alert and oriented -3. . - Labs CBC & Chem 7: 08/12/16 06:23 08/12/16 06:23 Labs: Abnormal Lab Results - Last 24 Hours (Table) 08/11/16 08/11/16 08/12/16 Range/Units 16:40 19:53 01:51 WBC (3.8-10.6) k/uL RBC (4.30-5.90) m/uL Hgb (13.0-17.5) gm/dL Hct (39.0-53.0) % RDW (11.5-15.5) % Carbon Dioxide (22-30) mmol/L BUN (9-20) mg/dL Creatinine (0.66-1.25) mg/dL Glucose (74-99) mg/dL POC Glucose (mg/dL) 148 H 110 H 130 H (75-99) mg/dL AST (17-59) U/L Alkaline Phosphatase (38-126) U/L Total Protein (6.3-8.2) g/dL Albumin (3.5-5.0) g/dL 08/12/16 08/12/16 08/12/16 Range/Units 06:23 06:23 06:49 WBC 14.9 H (3.8-10.6) k/uL RBC 2.56 L (4.30-5.90) m/uL Hgb 8.0 L (13.0-17.5) gm/dL Hct 24.3 L (39.0-53.0) % RDW 19.5 H (11.5-15.5) % Carbon Dioxide 21 L (22-30) mmol/L BUN 66 H (9-20) mg/dL Creatinine 5.47 H* (0.66-1.25) mg/dL Glucose 110 H (74-99) mg/dL POC Glucose (mg/dL) 117 H (75-99) mg/dL AST 96 H (17-59) U/L Alkaline Phosphatase 149 H (38-126) U/L Total Protein 5.9 L (6.3-8.2) g/dL Albumin 3.1 L (3.5-5.0) g/dL 08/12/16 Range/Units 11:48 WBC (3.8-10.6) k/uL RBC (4.30-5.90) m/uL Hgb (13.0-17.5) gm/dL Hct (39.0-53.0) % RDW (11.5-15.5) % Carbon Dioxide (22-30) mmol/L BUN (9-20) mg/dL Creatinine (0.66-1.25) mg/dL Glucose (74-99) mg/dL POC Glucose (mg/dL) 112 H (75-99) mg/dL AST (17-59) U/L Alkaline Phosphatase (38-126) U/L Total Protein (6.3-8.2) g/dL Albumin (3.5-5.0) g/dL Microbiology - Last 24 Hours (Table) 08/01/16 16:15 Fungal Culture - Preliminary Bronchial Washings - Left Assessment and Plan (1) End-stage renal disease on hemodialysis Status: Acute (2) Hyperlipidemia Status: Acute (3) Hypertension Status: Acute (4) Non-STEMI (non-ST elevated myocardial infarction) Status: Acute (5) Status post aorto-coronary artery bypass graft Status: Acute (6) Diabetic foot ulcer associated with type 2 diabetes mellitus Status: Acute Plan: From cardiology's perspective, we will recommend to continue the patient on his current medications. Arrangements are being made for the patient to potentially transfer over to [facility] rehab tomorrow. DNP note has been reviewed, I agree with a documented findings and plan of care. Patient was seen and examined.
[2016-08-12] MEDS: MULTIVITAMINS, THERA 1 EACH TAB PO SCH (14:14)
[2016-08-12] MEDS: THIAMINE 100 MG TAB PO SCH (14:15)
[2016-08-12] MEDS: FOLIC ACID 1 MG TAB PO SCH (14:15)
--- NOTE | 2016-08-12 15:20 | P.PN ---
Subjective Date of service 08/12/2016 Progress note being dictated for . Interval history: This a 80-year-old gentleman status post CABG, pulmonary edema , end-stage renal disease on hemodialysis, and left mainstem bronchus blood clots leading to left lung collapse, status post bronchoscopy and multiple other medical issues. Sitting up in chair on telemetry unit. Weakness persist , requiring multiple assists to chair, minimal steps. Maintained on Lomotil for loose stools, tested for c-Diff. Positive diet intake. Incentive spirometer up to 1500. Objective - Vital Signs Vital signs: Vital Signs Temp 97.2 F L 08/12/16 08:00 Pulse 96 08/12/16 12:00 Resp 18 08/12/16 12:00 BP 115/47 08/12/16 12:00 Pulse Ox 94 L 08/12/16 12:00 Intake & Output 08/11/16 08/12/16 08/12/16 18:59 06:59 18:59 Intake Total 60 390 350 Balance 60 390 350 Weight 80.5 kg 80.5 kg Intake: IV 40 0.9 flush 40 Intake, IV Titration 100 Amount metroNIDAZOLE-NS PMX 500 100 mg In Saline 1 100ml.bag @ 100 mls/hr IVPB Q8HR [facility] Rx#:[id number] Oral 60 350 250 Other: Voiding Method Diaper Diaper Diaper # Voids 1 2 # Bowel Movements 1 ABP, PAP, CO, CI - Last Documented Arterial Blood Pressure 156/51 Pulmonary Artery Pressure 40/30 Cardiac Output 6.4 Cardiac Index 3.3 - Exam PHYSICAL EXAM: VITAL SIGNS: As above GENERAL: [Sitting up in chair, alert and oriented X 3, no acute distress HEENT: [Pupils equal, conjunctiva normal. Oral mucosa moist] NECK: [Supple, no JVD] RESPIRATORY EFFORT:[Increased] LUNGS: Bilateral bases Diminished , occasional fine Bibasilar crackles, occasional rhonchi scattered throughout CARDIOVASCULAR[regular S1 and S2, no murmurs rubs or gallops, no edema] GI: [Abdomen soft, nontender, positive bowel sounds NEURO: Gross neurologic examination did not reveal any focal deficits, moves all 4 extremities, extremely weak. Sensation intact 0 0 Microbiology 08/01/16 16:15 Bronchial Washings - Left Fungal Culture - Preliminary 07/31/16 05:55 Blood Blood Culture - Final No Growth after 144 hours 07/31/16 05:55 Blood Blood Culture - Final No Growth after 144 hours 08/01/16 16:15 Bronchial Washings - Left Gram Stain - Final 08/01/16 16:15 Bronchial Washings - Left Bronchial Washings Culture - Final Pseudomonas aeruginosa 08/01/16 16:15 Bronchial Washings - Left Acid Fast Bacilli Smear - Final 08/01/16 16:15 Bronchial Washings - Left Acid Fast Bacilli Culture - Preliminary 07/25/16 20:46 Urine,Voided Urine Culture - Final - Labs CBC & Chem 7: 08/12/16 06:23 08/12/16 06:23 Labs: Abnormal Lab Results - Last 24 Hours (Table) 08/11/16 08/11/16 08/12/16 Range/Units 16:40 19:53 01:51 WBC (3.8-10.6) k/uL RBC (4.30-5.90) m/uL Hgb (13.0-17.5) gm/dL Hct (39.0-53.0) % RDW (11.5-15.5) % Carbon Dioxide (22-30) mmol/L BUN (9-20) mg/dL Creatinine (0.66-1.25) mg/dL Glucose (74-99) mg/dL POC Glucose (mg/dL) 148 H 110 H 130 H (75-99) mg/dL AST (17-59) U/L Alkaline Phosphatase (38-126) U/L Total Protein (6.3-8.2) g/dL Albumin (3.5-5.0) g/dL 08/12/16 08/12/16 08/12/16 Range/Units 06:23 06:23 06:49 WBC 14.9 H (3.8-10.6) k/uL RBC 2.56 L (4.30-5.90) m/uL Hgb 8.0 L (13.0-17.5) gm/dL Hct 24.3 L (39.0-53.0) % RDW 19.5 H (11.5-15.5) % Carbon Dioxide 21 L (22-30) mmol/L BUN 66 H (9-20) mg/dL Creatinine 5.47 H* (0.66-1.25) mg/dL Glucose 110 H (74-99) mg/dL POC Glucose (mg/dL) 117 H (75-99) mg/dL AST 96 H (17-59) U/L Alkaline Phosphatase 149 H (38-126) U/L Total Protein 5.9 L (6.3-8.2) g/dL Albumin 3.1 L (3.5-5.0) g/dL 08/12/16 Range/Units 11:48 WBC (3.8-10.6) k/uL RBC (4.30-5.90) m/uL Hgb (13.0-17.5) gm/dL Hct (39.0-53.0) % RDW (11.5-15.5) % Carbon Dioxide (22-30) mmol/L BUN (9-20) mg/dL Creatinine (0.66-1.25) mg/dL Glucose (74-99) mg/dL POC Glucose (mg/dL) 112 H (75-99) mg/dL AST (17-59) U/L Alkaline Phosphatase (38-126) U/L Total Protein (6.3-8.2) g/dL Albumin (3.5-5.0) g/dL Microbiology - Last 24 Hours (Table) 08/01/16 16:15 Fungal Culture - Preliminary Bronchial Washings - Left Assessment and Plan Plan: 1. [Acute non-STEMI present on admission, status post CABG. 2. Acute hypoxic respiratory failure status post CABG, secondary to pulmonary edema, status post BiPAP dependent. 3. Acute on chronic exacerbation of CHF, systolic dysfunction 4. CKD, end-stage on hemodialysis 4. [Mild aortic stenosis]. 5. [Hypertension]. 6. [Hyperlipidemia]. 7. Generalized asthenia 8. Rheumatoid arthritis 9. Metabolic bone disease 10. Hyperphosphatemia secondary to end-stage renal disease 11. Anemia of chronic kidney disease 12.Left mainstem bronchus blood clots leading to left lung collapse, status post bronchoscopy 13. Possible pneumonia, left lower lobe, status post bronchoscopy reporting pseudomonas aeruginosa. 14. Mild elevated LFTs 15. Hypoalbuminemia Plan: Continue with current medication regime , amiodarone, metoprolol, statin, ETELVINA inhibitor, monitoring and symptomatic treatment. PT/OT. Extremely weak, will require subacute rehab at discharge .Aggressive pulmonary toileting. Continue on nebulized bronchodilators, steroids .hemodialysis tomorrow as per nephrology .Prognosis guarded given multiple complex medical issues. Further recommendations to follow The impression and plan of care has been dictated as directed. : I performed a H&P examination of this patient and discussed the same with the dictator. I agree with the dictator's note. Any additional findings/opinions/ etc. will be noted.
[2016-08-12 16:51] LABS: Glucose,Whole Blood 134 mg/dL (75-99)
--- NOTE | 2016-08-12 17:09 | P.PN ---
Subjective Principal diagnosis: Status post CABG, postoperative day #7 This is a 80-year-old white male with history of multiple medical problems including hypertension, previous ischemic heart disease and mild aortic stenosis. End-stage renal disease on hemodialysis. History of rheumatoid arthritis, patient was admitted recently with chest pain, cardiac enzymes were suggestive of non-ST elevation myocardial infarction, cardiac cath showed significant coronary artery disease with critical lesion in the proximal LAD also the proximal RCA. Today, the patient underwent myocardial revascularization by Dr. Alcaraz, and he was placed on mechanical ventilation postoperatively, seen in the ICU for consultation and postoperative ventilator management. Presently, the patient is on 100% FiO2, assist control rate of 12, PEEP of 5, and tidal volume of 500. Initial ABG showed a pO2 of 364, pCO2 of 42 pH of 7.32. However shortly after patient was placed on a 50% FiO2, and he was noted to have significant drop in his saturation based on pulse oximetry. Repeat ABG showed worsening oxygenation with a pO2 of 46 pCO2 of 50 and pH of 7.28. Hence placed back on 100%, increased his rate up to 16, and increased the PEEP to 10. Follow-up chest x-ray showed worsening pulmonary edema, remind you patient is a hemodialysis patient. Follow-up ABG is pending. Patient is presently fully sedated, and in no distress. Reevaluated today on 07/30/2016, patient is status post off pump double coronary artery bypass grafting using L REJI to LAD, and reverse saphenous vein graft from the aorta to the posterior descending artery.patient remains on mechanical ventilation, chest x-ray is showing worsening picture of pulmonary edema, however the possibility of bleeding into the left midlung area and left lower lobe is not entirely ruled out there seems to be a worsening consolidation in the area of the left midlung and left lower lobe, hence may consider bronchoscopy on this patient. In the meantime, patient is being ultrafiltrate it today, and hopefully that will make a significant improvement on the chest x- ray appearance, and may help oxygenation.labs were reviewed, WBC count is 9.8 hemoglobin is 7.6 it was 6.5 earlier today,patient received a total of 5 units of packed RBCs since admission, 2 units of fresh frozen plasma, and 3 units of platelets. Reevaluated today on 07/31/2016, patient underwent another bronchoscopy today although his chest x-ray was showing some improvement compared to the chest x- ray yesterday after bronchoscopy. There was evidence of more aeration of the left upper lobe and lingula on the chest x-ray today. Today I was able to clear plugs from the left lower lobe bronchus, and from the lingular bronchus. Throughout the procedure there was some oozing of blood, and the mucosa of the bronchial tube was noted to be very fragile and bled easily. No biopsies were done. But suctioning and lavages of the left lower lobe and lingula was performed. In the meantime the patient remains on mechanical ventilations, today I increased his tidal volume up to 550 kept him on assist control rate of 16 I increased the flow rates up to 70, and FiO2 will be titrated down from 100 % during the bronchoscopy to as low as 50% as tolerated, and PEEP remains at 10 for the time being. Labs were reviewed, hemoglobin is 7.9 platelets are 114. Electrolytes were reviewed BUN is 31 creatinine is 4.29. On 08/01/2016, patient remains on mechanical ventilation, we were able earlier today to cut down the FiO2 to 50%, and PEEP was down to as low as 5%. However as the hemodialysis was started, patient began to desaturate, hence went back to a PEEP of 8. And increase his FiO2 to 55%. Patient is now undergoing hemodialysis, his chest x-ray is showing definite improvement, hence no need for bronchoscopy and evaluation of the left lung today. Still suctioning some bloody secretions from the endotracheal tube by respiratory. Labs were reviewed , hemoglobin is 7.3 today. Platelets are 101, INR is 1.1 electrolytes and renal profile were reviewed BUN is 24 creatinine is 3.24. Elevation of the left lung is definitely improved, small bilateral pleural effusions were noted On 08/02/2016, patient was reevaluated. I had to bronchoscope the patient late in the afternoon yesterday because of worsening chest x-ray and the patient continued to desaturate intermittently requiring increasing the FiO2 to 100%. Lavage was done of the left lower lobe lingula and left upper lobe, patient was placed on Decadron, cultures from the previous bronchoscopy came back positive for Pseudomonas, hence I started the patient today on Zosyn, and the patient is being followed by infectious disease on consultation. Patient remains on mechanical ventilation today, he is on a 50% and PEEP of 8 ABG showed a pO2 of 85 pCO2 of 33 pH of 7.48. Chest x-ray is showing better aeration of the left upper lobe lingula and left lower lobe, continues to have some atelectasis in the left lower lobe itself. It is not going to be dialyzed today, but will be dialyzed in a.m. BUN is 23 creatinine is 2.80 patient remains sedated on mechanical ventilation, however we plan to discontinue propofol briefly, assess his mental status today, and again he is not quite ready for extubation and weaning at this point. But this will definitely be addressed again tomorrow assuming his chest x-ray continues to show improvement. Reevaluated today on 08/03/2016, remains on mechanical ventilation, chest x-ray is showing definite improvement in the aeration of the left lung, patient will not eat to be bronchoscope today. However I do plan to consider a weaning trial on this patient today after hemodialysis. If tolerated may even proceeded to extubating the patient. ABG this morning showed a pO2 of 113 pCO2 of 29 pH of 7.50 hence I cut down the rate to 12, I also cut down the PEEP from 10-5. CBC showed hemoglobin of 7.1, I will leave it up to the surgeons to decide whether the patient needs to be transfused at this point. This may be done at the time of his dialysis. Electrolytes were reviewed BUN is 47 creatinine is 3.40. Chest x-ray as noted above. Reevaluated on 08/04/2016, remains on mechanical ventilation, chest x-ray today is showing slight worsening, I suspect there is some interstitial edema, and possibly minimal left lower lobe atelectasis or pneumonia involving the left lower lobe. ABG showed a pO2 of 123 pCO2 of 34 pH of 7.44 patient is presently on a PEEP of 5 and FiO2 of 50%. He has been off propofol for quite some time overnight, and I was hoping to assess his mental status today and likely extubated. However the patient remains lethargic off propofol, and considering the worsening of the chest x-ray, will likely have the patient dialyzed today, and address weaning again either later today or in a.m. We'll cut down the dose of Decadron, WBC count is down to 16.1 hemoglobin is 9.0 today The patient was seen again today in follow-up 08/05/2016. He was extubated approximately 5 PM yesterday and was maintained on 5 L/m per nasal cannula. This morning his saturations were 89-90%. He was seen by Dr. Alcaraz who placed the patient on BiPAP at 12/6 and 50%. Current blood gases reveal a pO2 of 87, pCO2 37, pH 7.45. A mild respiratory alkalosis. He is currently off sedation he has not received any pain medication or other forms of sedation. He is still quite difficult to arouse. He does open his eyes to verbal stimuli and he is moving all fours. He is maintaining good O2 saturations on 50%. He has a 0.9 normal saline at [facility]. He did receive dialysis again today with the plans to remove 4 L. His current creatinine is 3.20, BUN 56, hemoglobin 8.8 The bronchial wash did reveal pseudomonas aeruginosa. He is currently on Zosyn. Progress note dated 08/06/2016 This is a 80-year-old male who was extubated a couple days ago. I believe [id number].The patient has primarily been on BiPAP dependent since that time.Thepatient'zIjMQUwajaqytneczvaocqshhdyUTJSzj50GNPW0qxoQyW5uj96%. HisIVis0.3cl00jGjsbdaf.He is getting vital high protein at 30 with a goal of 30.LerzgxripujvywhppcmnlkfuhudekhkbZsnxa01efz0.7Loffluidwasremoved.Hischestx- raysimproved.Heisapparentlygoingtohavehemodialysisagaintoday.I' mnotsurewhattheplanisfor.Hedidnothavebloodgasestoday. HeremainsonZosynforthePseudomonasrecoveredhisbronchialwash.AgainasImentionhische stx - raysimproved.Wearegoingtotryhimonsomenasalprongstoday.Helookslikehemightbeableto tolerateit. Progress note dated 08/07/2016 This is a 80-year-old male who was extubated on Friday evening. The patient is doing relatively well although for the first couple of days post extubation, he was BiPAP dependent. Yesterday we were able to transition him to nasal cannula. He is doing well. Did not need BiPAP all of last night. He is much more awake and alert. He is scheduled for hemodialysis. He's had hemodialysis last 2 days. Again he is much more awake and alert. Currently he is on O2 at 2 L. Not requiring BiPAP. He is getting appointment 9 IV at 20 mL an hour he is going to get hemodialysis today. Other than that things are going reasonably well but I think this patient should stay in the ICU for at least another day or so. The patient is seen again today 08/08/2016 in follow-up in the intensive care unit. He is currently awake and alert in no acute distress. He did have another 2-1/2 L removed per hemodialysis last evening. He is currently maintaining O2 saturation in the low 90s on 4 L/m per nasal cannula. He has a 0.9 at KVO via a PICC line. Today's chest x-ray reveals a right lower lobe infiltrate/effusion which is stable. He denies any worsening shortness of breath, cough or congestion. His bronchial wash findings from 08/01/2016 did reveal pseudomonas aeruginosa. He remains on bronchodilators and Zosyn. White count 11.4. Current BUN 52, creatinine 3.10. The patient is seen again today 08/12/2016 in follow-up on the selective care unit. He is awake and alert in no acute distress. He has remained quite weak and debilitated. He does deny any worsening shortness of breath, cough or congestion. He is maintaining good O2 saturations in the upper 90s on room air. He has been hemodynamically stable. Objective - Vital Signs Vital signs: Vital Signs Temp 97.2 F L 08/12/16 08:00 Pulse 84 08/12/16 16:34 Resp 18 08/12/16 12:00 BP 115/47 08/12/16 12:00 Pulse Ox 94 L 08/12/16 12:00 Intake & Output 08/11/16 08/12/16 08/12/16 18:59 06:59 18:59 Intake Total 60 390 350 Balance 60 390 350 Weight 80.5 kg 80.5 kg Intake: IV 40 0.9 flush 40 Intake, IV Titration 100 Amount metroNIDAZOLE-NS PMX 500 100 mg In Saline 1 100ml.bag @ 100 mls/hr IVPB Q8HR [facility] Rx#:[id number] Oral 60 350 250 Other: Voiding Method Diaper Diaper Diaper # Voids 1 2 # Bowel Movements 1 ABP, PAP, CO, CI - Last Documented Arterial Blood Pressure 156/51 Pulmonary Artery Pressure 40/30 Cardiac Output 6.4 Cardiac Index 3.3 - Exam GENERAL EXAM: Awake, alert in no acute distress. HEAD: Normocephalic. EYES: Risk reaction of pupils, equal size. NOSE: Clear with pink turbinates. THROAT: No erythema or exudates. NECK: No masses, no JVD. CHEST: No chest wall deformity. LUNGS: Equal air entry with crackles in the posterior bases. CVS: S1 and S2 normal with no audible murmurs, regular rhythm. ABDOMEN: No hepatosplenomegaly, normal bowel sounds. SPINE: No scoliosis or deformity SKIN: No rashes Extremities: There is trace peripheral edema. No clubbing, no cyanosis. Peripheral pulses are intact. - Labs CBC & Chem 7: 08/12/16 06:23 08/12/16 06:23 Labs: Abnormal Lab Results - Last 24 Hours (Table) 08/11/16 08/12/16 08/12/16 Range/Units 19:53 01:51 06:23 WBC 14.9 H (3.8-10.6) k/uL RBC 2.56 L (4.30-5.90) m/uL Hgb 8.0 L (13.0-17.5) gm/dL Hct 24.3 L (39.0-53.0) % RDW 19.5 H (11.5-15.5) % Carbon Dioxide (22-30) mmol/L BUN (9-20) mg/dL Creatinine (0.66-1.25) mg/dL Glucose (74-99) mg/dL POC Glucose (mg/dL) 110 H 130 H (75-99) mg/dL AST (17-59) U/L Alkaline Phosphatase (38-126) U/L Total Protein (6.3-8.2) g/dL Albumin (3.5-5.0) g/dL 08/12/16 08/12/16 08/12/16 Range/Units 06:23 06:49 11:48 WBC (3.8-10.6) k/uL RBC (4.30-5.90) m/uL Hgb (13.0-17.5) gm/dL Hct (39.0-53.0) % RDW (11.5-15.5) % Carbon Dioxide 21 L (22-30) mmol/L BUN 66 H (9-20) mg/dL Creatinine 5.47 H* (0.66-1.25) mg/dL Glucose 110 H (74-99) mg/dL POC Glucose (mg/dL) 117 H 112 H (75-99) mg/dL AST 96 H (17-59) U/L Alkaline Phosphatase 149 H (38-126) U/L Total Protein 5.9 L (6.3-8.2) g/dL Albumin 3.1 L (3.5-5.0) g/dL 08/12/16 Range/Units 16:41 WBC (3.8-10.6) k/uL RBC (4.30-5.90) m/uL Hgb (13.0-17.5) gm/dL Hct (39.0-53.0) % RDW (11.5-15.5) % Carbon Dioxide (22-30) mmol/L BUN (9-20) mg/dL Creatinine (0.66-1.25) mg/dL Glucose (74-99) mg/dL POC Glucose (mg/dL) 134 H (75-99) mg/dL AST (17-59) U/L Alkaline Phosphatase (38-126) U/L Total Protein (6.3-8.2) g/dL Albumin (3.5-5.0) g/dL Microbiology - Last 24 Hours (Table) 08/01/16 16:15 Fungal Culture - Preliminary Bronchial Washings - Left Assessment and Plan Plan: Plan: Impression: 1 status post CABG 2 acute pulmonary edema as noted on the chest x-ray, recovered. Nose: The 3 history of mild aortic stenosis 4 history of mild LV dysfunction 5 history of chronic anemia 6 history of chronic renal failure on hemodialysis 7 history of hypertension 8 history of hyperlipidemia 9 history of right groin pseudoaneurysm following cardiac catheterization. 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 However the patient will not need to be bronchoscoped on 08/02. And on 08/03. And on 08/04 13 acute ventilator associated pneumonia is strongly suspected, patient has Pseudomonas in his bronchial washing from the left lower lobe, hence will continue Zosyn Plan: The patient was seen and evaluated by Dr. Lucas. The patient is improved from the pulmonary and critical care standpoint. He does remain quite weak and debilitated. The plan is for transfer to an extended care facility for continued inpatient rehabilitation in the next day or so. We'll continue with his current pulmonary medications. We'll continue to increase his activity as tolerated. We'll continue to follow.
[2016-08-12] MEDS: SENNOSIDES-DOCUSATE SODIUM 1 EACH TAB PO SCH (20:25)
[2016-08-12 20:52] LABS: Glucose,Whole Blood 149 mg/dL (75-99)
--- NOTE | 2016-08-12 21:07 | P.PN ---
Subjective Principal diagnosis: cough This is a 80-year-old male known to infectious disease service as he has been treated for infection to his shunt on his left arm before as well as ulceration to his left heel. Patient states that he presented to [facility] because he was initially having epistaxis. This was on Friday. The bleeding was controlled and he was discharged home. He then returned on Friday as he woke up in the morning at 2 AM with a cough and shortness of breath that had been going on but continued to worsen. 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 He has been evaluated by cardiothoracic surgery and is scheduled for CABG on June 28. Patient does have history of end-stage renal disease on hemodialysis Friday and Friday and is followed by Dr. Fernandez. He denies any problems with his dialysis AV fistula in his left arm. [facility] under the care of Dr. Carey. He has a total contact cast to the left lower extremity . Regarding his epistaxis, patient was seen by Dr. Chen on underwent flexible nasal endoscopy finding a right anterior septal ulcer. Dr. Lucas is following from pulmonary medicine. Upon review of his previous wound cultures, he does have history of MRSA. Patient does have history of rheumatoid arthritis on prednisone only. 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 He has been evaluated by interventional radiology and repairs been performed. He is doing well and folow up shows resolution of the pseudoaneurysm The cardiothoracic surgeries occurred. He did well ,but had some bleeding into his lungs. A bronchoscopy was done to remove blood clots. Cultures reveal evidence pseudomonas aeruginosa from the BAL. Antibiotic therapy with Zosyn was begun. AP and fungal cultures are negative. Patient is improved out of the intensive care unit. Patient complains of some discomfort of buttocks, not new but worse now sitting in chair. Overall he is feeling better today. Eating much better. Having no other new complaints. Objective - Vital Signs Vital signs: Vital Signs Temp 97.3 F L 08/12/16 20:00 Pulse 80 08/12/16 20:35 Resp 16 08/12/16 20:00 BP 93/53 08/12/16 20:00 Pulse Ox 96 08/12/16 20:00 Intake & Output 08/12/16 08/12/16 08/13/16 06:59 18:59 06:59 Intake Total 390 350 Balance 390 350 Weight 80.5 kg 80.5 kg Intake: IV 40 0.9 flush 40 Intake, IV Titration 100 Amount metroNIDAZOLE-NS PMX 500 100 mg In Saline 1 100ml.bag @ 100 mls/hr IVPB Q8HR [facility] Rx#:[id number] Oral 350 250 Other: Voiding Method Diaper Diaper Diaper # Voids 1 2 ABP, PAP, CO, CI - Last Documented Arterial Blood Pressure 156/51 Pulmonary Artery Pressure 40/30 Cardiac Output 6.4 Cardiac Index 3.3 - Exam Gen: This is a 80-year-old male. On selective care. Extubated. Sitting upright. Able to communicate. HEENT: Head is atraumatic, normocephalic. Pupils equal, round. Sclerae is anicteric. Conjunctiva pink. Mucous members of the mouth are moist. No thrush noted. NECK: Supple. No JVD. No lymphadenopathy. No thyromegaly. LUNGS: Coarse crackles throughout the lung cotto HEART: Regular rate and rhythm. No murmur. ABDOMEN: Soft. Bowel sounds are present. No masses. No tenderness. EXTREMITIES: Total contact cast is back in place in the left leg. The right leg is without significant edema, pseudoaneurysm site to the right leg continues to heal and the ecchymosis is improving Skin: With the aids present the patient is started. There is evidence of some minimal erythema to the buttocks. No open ulcerations are seen in the buttocks or the coccyx. He is producing some stool that is thickened pasty in nature. There is no kris diarrhea. Dialysis graft of the left arm is intact.Difficulty with a skin tear NEUROLOGICAL: Sitting upright. A little more strength apparently was able to stand momentarily with a 2 person assist - Labs CBC & Chem 7: 08/12/16 06:23 08/12/16 06:23 Labs: Abnormal Lab Results - Last 24 Hours (Table) 08/12/16 08/12/16 08/12/16 Range/Units 01:51 06:23 06:23 WBC 14.9 H (3.8-10.6) k/uL RBC 2.56 L (4.30-5.90) m/uL Hgb 8.0 L (13.0-17.5) gm/dL Hct 24.3 L (39.0-53.0) % RDW 19.5 H (11.5-15.5) % Carbon Dioxide 21 L (22-30) mmol/L BUN 66 H (9-20) mg/dL Creatinine 5.47 H* (0.66-1.25) mg/dL Glucose 110 H (74-99) mg/dL POC Glucose (mg/dL) 130 H (75-99) mg/dL AST 96 H (17-59) U/L Alkaline Phosphatase 149 H (38-126) U/L Total Protein 5.9 L (6.3-8.2) g/dL Albumin 3.1 L (3.5-5.0) g/dL 08/12/16 08/12/16 08/12/16 Range/Units 06:49 11:48 16:41 WBC (3.8-10.6) k/uL RBC (4.30-5.90) m/uL Hgb (13.0-17.5) gm/dL Hct (39.0-53.0) % RDW (11.5-15.5) % Carbon Dioxide (22-30) mmol/L BUN (9-20) mg/dL Creatinine (0.66-1.25) mg/dL Glucose (74-99) mg/dL POC Glucose (mg/dL) 117 H 112 H 134 H (75-99) mg/dL AST (17-59) U/L Alkaline Phosphatase (38-126) U/L Total Protein (6.3-8.2) g/dL Albumin (3.5-5.0) g/dL 08/12/16 Range/Units 20:51 WBC (3.8-10.6) k/uL RBC (4.30-5.90) m/uL Hgb (13.0-17.5) gm/dL Hct (39.0-53.0) % RDW (11.5-15.5) % Carbon Dioxide (22-30) mmol/L BUN (9-20) mg/dL Creatinine (0.66-1.25) mg/dL Glucose (74-99) mg/dL POC Glucose (mg/dL) 149 H (75-99) mg/dL AST (17-59) U/L Alkaline Phosphatase (38-126) U/L Total Protein (6.3-8.2) g/dL Albumin (3.5-5.0) g/dL Microbiology - Last 24 Hours (Table) 08/01/16 16:15 Fungal Culture - Preliminary Bronchial Washings - Left Laboratory Results WBC 14.9 k/uL (3.8-10.6) H 08/12/16 06:23 RBC 2.56 m/uL (4.30-5.90) L 08/12/16 06:23 Hgb 8.0 gm/dL (13.0-17.5) L 08/12/16 06:23 Hct 24.3 % (39.0-53.0) L 08/12/16 06:23 MCV 94.9 fL (80.0-100.0) 08/12/16 06:23 MCH 31.2 pg (25.0-35.0) 08/12/16 06:23 MCHC 32.9 g/dL (31.0-37.0) 08/12/16 06:23 RDW 19.5 % (11.5-15.5) H 08/12/16 06:23 Plt Count 190 k/uL (150-450) 08/12/16 06:23 Neutrophils % 88 % 08/09/16 07:35 Neutrophils % (Manual) 81.0 % 07/29/16 14:10 Band Neutrophils % 4.0 % 07/29/16 14:10 Lymphocytes % 6 % 08/09/16 07:35 Lymphocytes % (Manual) 9.0 % 07/29/16 14:10 Monocytes % 4 % 08/09/16 07:35 Monocytes % (Manual) 2.0 % 07/29/16 14:10 Eosinophils % 1 % 08/09/16 07:35 Eosinophils % (Manual) 4.0 % 07/29/16 14:10 Basophils % 0 % 08/09/16 07:35 Myelocytes % 0.5 % 07/26/16 06:10 Neutrophils # 9.7 k/uL (1.3-7.7) H 08/09/16 07:35 Neutrophils # (Manual) 12.2 k/uL (1.3-7.7) H 07/29/16 14:10 Lymphocytes # 0.6 k/uL (1.0-4.8) L 08/09/16 07:35 Lymphocytes # (Manual) 1.3 k/uL (1.0-4.8) 07/29/16 14:10 Monocytes # 0.5 k/uL (0-1.0) 08/09/16 07:35 Monocytes # (Manual) 0.3 k/uL (0-1.0) 07/29/16 14:10 Eosinophils # 0.1 k/uL (0-0.7) 08/09/16 07:35 Eosinophils # (Manual) 0.6 k/uL (0-0.7) 07/29/16 14:10 Basophils # 0.0 k/uL (0-0.2) 08/09/16 07:35 Nucleated RBCs 0 /100 WBC (0-0) 07/29/16 14:10 Manual Slide Review Performed 08/04/16 05:45 Polychromasia Present 07/29/16 14:10 Hypochromasia Slight 08/12/16 06:23 Poikilocytosis Slight 08/12/16 06:23 Poikilocytosis (manual Present 07/26/16 06:10 Anisocytosis Slight 08/12/16 06:23 Macrocytosis Slight 08/12/16 06:23 PT 13.0 sec (9.0-12.0) H 08/09/16 07:35 INR 1.3 (<1.1) 08/09/16 07:35 APTT 46.6 sec (22.0-30.0) H 08/09/16 07:35 Fibrinogen 206 mg/dL (200-500) 07/29/16 14:10 Sample Site PAKO 08/05/16 21:25 ABG pH 7.46 (7.35-7.45) H 08/05/16 21:25 ABG pCO2 37 mmHg (35-45) 08/05/16 21:25 ABG pO2 111 mmHg (83-108) H 08/05/16 21:25 ABG HCO3 25 mmol/L (21-25) 08/05/16 21:25 ABG Total CO2 27 mmol/L (19-24) H 08/05/16 21:25 ABG O2 Saturation 98.0 % (94-97) H 08/05/16 21:25 ABG Base Excess 1.8 mmol/L 08/05/16 21:25 FiO2 40 % 08/05/16 21:25 Sodium 138 mmol/L (137-145) 08/12/16 06:23 Potassium 3.6 mmol/L (3.5-5.1) 08/12/16 06:23 Chloride 101 mmol/L (98-107) 08/12/16 06:23 Carbon Dioxide 21 mmol/L (22-30) L 08/12/16 06:23 Anion Gap 16 mmol/L 08/12/16 06:23 BUN 66 mg/dL (9-20) H 08/12/16 06:23 Creatinine 5.47 mg/dL (0.66-1.25) H* 08/12/16 06:23 Est GFR (MDRD) Af Amer 12 (>60 ml/min/1.73 sqM) 08/12/16 06:23 Est GFR (MDRD) Non-Af 10 (>60 ml/min/1.73 sqM) 08/12/16 06:23 Glucose 110 mg/dL (74-99) H 08/12/16 06:23 POC Glucose (mg/dL) 149 mg/dL (75-99) H 08/12/16 20:51 POC Glu [employer] ID Deborah Holloway 08/12/16 20:[address] Glu mg/dL 111 mg/dL 07/25/16 06:21 Hemoglobin A1c 5.5 % (4.2-6.1) 07/25/16 06:21 Calcium 8.6 mg/dL (8.4-10.2) 08/12/16 06:23 Ionized Calcium Lance 4.5 mg/dL (4.5-5.3) 08/05/16 04:55 Phosphorus 4.4 mg/dL (2.5-4.5) 08/09/16 07:35 Magnesium 2.2 mg/dL (1.6-2.3) 08/09/16 07:35 Iron 30 ug/dL (49-181) L 07/27/16 05:54 TIBC 273 ug/dL (261-462) 07/27/16 05:54 % Saturation 11.0 % (20-50) L 07/27/16 05:54 Total Bilirubin 1.0 mg/dL (0.2-1.3) 08/12/16 06:23 AST 96 U/L (17-59) H 08/12/16 06:23 ALT 69 U/L (21-72) 08/12/16 06:23 Alkaline Phosphatase 149 U/L (38-126) H 08/12/16 06:23 NT-Pro-B Natriuret Pep 20541 pg/mL 07/25/16 06:21 Total Protein 5.9 g/dL (6.3-8.2) L 08/12/16 06:23 Albumin 3.1 g/dL (3.5-5.0) L 08/12/16 06:23 Triglycerides 78 mg/dL (<150) 07/26/16 06:10 Cholesterol 143 mg/dL (<200) 07/26/16 06:10 LDL Cholesterol, Calc 72 mg/dL (0-99) 07/26/16 06:10 HDL Cholesterol 55 mg/dL (40-60) 07/26/16 06:10 TSH 3.000 mIU/L (0.465-4.680) 07/26/16 06:10 Urine Color Light Yellow 07/25/16 20:46 Urine Appearance Clear (Clear) 07/25/16 20:46 Urine pH 8.0 (5.0-8.0) 07/25/16 20:46 Ur Specific [place] 1.007 (1.001-1.035) 07/25/16 20:46 Urine Protein 2+ (Negative) H 07/25/16 20:46 Urine Glucose (UA) 1+ (Negative) H 07/25/16 20:46 Urine Ketones Negative (Negative) 07/25/16 20:46 Urine Blood Trace (Negative) H 07/25/16 20:46 Urine Nitrite Negative (Negative) 07/25/16 20:46 Urine Bilirubin Negative (Negative) 07/25/16 20:46 Urine Urobilinogen <2.0 mg/dL (<2.0) 07/25/16 20:46 Ur Leukocyte Esterase Negative (Negative) 07/25/16 20:46 Urine RBC <1 /hpf (0-5) 07/25/16 20:46 Urine WBC <1 /hpf (0-5) 07/25/16 20:46 Ur Squamous Epith Cells <1 /hpf (0-4) 07/25/16 20:46 Urine Bacteria Rare /hpf (None) H 07/25/16 20:46 Stool Occult Blood Positive (Negative) 07/25/16 20:46 Random Vancomycin 9.5 ug/mL 07/30/16 06:00 c-ANCA <1:20 Titer (<1:20) 07/31/16 08:45 p-ANCA <1:20 Titer (<1:20) 07/31/16 08:45 C. difficile (EIA) Intrp Negative (Negative) 08/12/16 02:30 Hepatitis A IgM Ab NEGATIVE 07/26/16 06:10 Hep Bs Antigen Negative 07/26/16 06:10 Hep B Core IgM Ab NEGATIVE 07/26/16 06:10 Hep C IgG Ab Negative (Negative) 07/26/16 06:10 Virus Source See Below 08/01/16 16:15 Viral Test See Below 08/01/16 16:15 Virus Analysis Interp See Below 08/01/16 16:15 Blood Type B Positive 08/03/16 08:00 Blood Type Confirm B Positive 07/27/16 05:59 Blood Type Recheck No 08/03/16 08:00 Antibody Screen NEGATIVE 08/03/16 08:00 Crossmatch See Detail 08/03/16 08:00 Transfuse Plasma 07/29/2016 07/29/16 12:59 Transfuse Platelets 07/29/2016 07/29/16 13:00 Spec Expiration Date 08/06/2016 - 2300 08/03/16 08:00 Microbiology 08/01/16 16:15 Bronchial Washings - Left Fungal Culture - Preliminary 07/31/16 05:55 Blood Blood Culture - Final No Growth after 144 hours 07/31/16 05:55 Blood Blood Culture - Final No Growth after 144 hours 08/01/16 16:15 Bronchial Washings - Left Gram Stain - Final 08/01/16 16:15 Bronchial Washings - Left Bronchial Washings Culture - Final Pseudomonas aeruginosa 08/01/16 16:15 Bronchial Washings - Left Acid Fast Bacilli Smear - Final 08/01/16 16:15 Bronchial Washings - Left Acid Fast Bacilli Culture - Preliminary 07/25/16 20:46 Urine,Voided Urine Culture - Final Assessment and Plan (1) Non-STEMI (non-ST elevated myocardial infarction) Status: Acute (2) Diabetic foot ulcer associated with type 2 diabetes mellitus Narrative/Plan: The total contact cast is in reapplied to the left leg. Doing well. Continues to recover from his cardiovascular surgery. 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 BAL that showed evidence of pseudomonas aeruginosa and is being treated with piperacillin tazobactam. The plan a 7 day course of that. Continue ongoing supportive care. His neurological status continues to improve. The pseudoaneurysm to the right groin continues to heal, ecchymosis is improving. Daily improvement is being recorded. We'll go to inpatient rehab at discharge. Has been tolerating dialysis without difficulties. Patient is complaining of some pain to his coccyx and buttocks. No ulcerations are seen. The zinc protective ointment is applied. Cushioning is obtained for his chair in his bed. . The patient's relates when he is at dialysis does utilize a cushion on his chair because he does have pain when he sits in a chair. This is not new. Improved appetite showing some improvement today. Status: Acute
--- NOTE | 2016-08-12 21:33 | PN ---
DATE OF SERVICE: 08/12/2016 This 80 -year-old gentleman who was admitted after CAD, CABG also had history of renal failure and diabetes mellitus also. PT/OT evaluating the patient for possible rehab to [facility] inpatient versus select specialty. Seen and evaluated the patient along with nurse practitioner. Please refer to the nurse practitioner notes and impression documented as a scribe for further information. Prognosis guarded. Further recommendations to follow.
[2016-08-13] MEDS: metroNIDAZOLE-NS PMX 500 MG in SALINE 1 100ML.BAG IVPB SCH ×2 (00:08→08:07)
[2016-08-13] MEDS: METOPROLOL TARTRATE 25 MG TAB PO SCH ×3 (00:08→23:07)
[2016-08-13] MEDS: HEPARIN SODIUM,PORCINE 5,000 UNIT/ML 1 ML VIAL SQ SCH ×4 (00:09→23:07)
[2016-08-13] MEDS: HYDROcodone/APAP 5-325MG 1 EACH TAB PO PRN ×5 (00:17→23:05)
[2016-08-13 02:10] LABS: Glucose,Whole Blood 112 mg/dL (75-99)
[2016-08-13 06:45] LABS: Glucose,Whole Blood 105 mg/dL (75-99)
[2016-08-13] MEDS: INSULIN LISPRO (humaLOG) 300 UNIT/3 ML VIAL SQ SCH ×4 (06:49→20:59)
[2016-08-13 07:19] LABS: Anisocytosis Slight; CH 30.4; CHCM 32.9; HCT 23.9 % (39.0-53.0); HDW 3.72; HGB 8.2 gm/dL (13.0-17.5); Hypochromasia Slight; MCH 32.1 pg (25.0-35.0); MCHC 34.4 g/dL (31.0-37.0); MCV 93.4 fL (80.0-100.0); Macrocytosis Slight; Mean Platelet Volume 9.1; Poikilocytosis Slight; RBC 2.56 m/uL (4.30-5.90); RDW 19.5 % (11.5-15.5); WBC 15.3 k/uL (3.8-10.6)
[2016-08-13] MEDS: AMIODARONE 200 MG TAB PO SCH ×2 (08:07→20:59)
[2016-08-13] MEDS: CALCIUM ACETATE 667 MG CAP PO SCH ×3 (08:07→17:31)
[2016-08-13] MEDS: ATORVASTATIN 40 MG TAB PO SCH (08:07)
[2016-08-13] MEDS: NYSTATIN 100,000 UNIT/ML SUSP 500,000 UNIT/5 ML CUP PO SCH ×4 (08:07→21:00)
[2016-08-13] MEDS: PANTOPRAZOLE 40 MG TABLET PO SCH (08:07)
[2016-08-13] MEDS: ASPIRIN 81 MG CHEW PO SCH (08:07)
[2016-08-13 08:10] LABS: Calcium 8.9 mg/dL (8.4-10.2); Total Protein 6.4 g/dL (6.3-8.2)
[2016-08-13] MEDS: IPRATROPIUM-ALBUTEROL 3 ML NEB INHALATION SCH ×4 (08:31→21:04)
--- NOTE | 2016-08-13 09:08 | XR ---
EXAMINATION TYPE: XR chest 1V portable DATE OF EXAM: 08/13/2016 7:31 AM COMPARISON: 08/12/2016 HISTORY: Postop CABG TECHNIQUE: Single frontal view of the chest is obtained. FINDINGS: Right-sided central line and postsurgical changes noted. Underlying COPD noted. Bilateral pleural effusion or thickening greater on the right is stable. Cardiomegaly stable. No overt failure. Arthropathy of the shoulders. Chronic rib deformities are seen suggestive of remote trauma. IMPRESSION: 1. Stable bilateral tiny pleural effusion or thickening. Subsegmental consolidation at both lung base s suggest either compressive atelectasis or early infiltrate.
--- NOTE | 2016-08-13 10:17 | P.PN ---
Subjective Patient seen in follow-up for end-stage renal disease. He is maintained on hemodialysis on a Friday schedule. He was extubated August 04 and is currently on a nasal cannula. He's been undergoing dialysis almost on a daily basis and is now back on Friday schedule. He underwent 2 bronchoscopies this admission revealing left lung bleeding. Bronchial washings positive for Pseudomonas. He is communicating well. Currently having breakfast. He underwent hemodialysis Friday with 1.3 L ultrafiltration. He did get up to chair this morning. Appetite is good. No active complaints at this time. Vital signs are stable. General: The patient appeared well nourished and normally developed. HEENT: Head exam is unremarkable. Neck is without jugular venous distension. LUNGS: Diffuse rhonchi. Breath sounds decreased. HEART: Rate and Rhythm are regular. First and second heart sounds normal. No murmurs, rubs or gallops. ABDOMEN: Abdominal exam reveals normal bowel sounds. Non-tender and non- distended. No evidence of peritonitis. EXTREMITITES: Trace edema. Objective - Vital Signs Vital signs: Vital Signs Temp 97 F L 08/13/16 08:00 Pulse 88 08/13/16 08:40 Resp 18 08/13/16 08:00 BP 130/54 08/13/16 08:00 Pulse Ox 93 L 08/13/16 08:32 Intake & Output 08/12/16 08/13/16 08/13/16 18:59 06:59 18:59 Intake Total 350 760 Balance 350 760 Weight 80.5 kg 82.5 kg Intake: IV 20 0.9 flush 20 Intake, IV Titration 100 Amount metroNIDAZOLE-NS PMX 500 100 mg In Saline 1 100ml.bag @ 100 mls/hr IVPB Q8HR [facility] Rx#:[id number] Oral 250 740 Other: Voiding Method Diaper Diaper # Voids 2 1 ABP, PAP, CO, CI - Last Documented Arterial Blood Pressure 156/51 Pulmonary Artery Pressure 40/30 Cardiac Output 6.4 Cardiac Index 3.3 - Labs CBC & Chem 7: 08/13/16 06:05 08/13/16 06:05 Labs: Abnormal Lab Results - Last 24 Hours (Table) 08/12/16 08/12/16 08/12/16 Range/Units 11:48 16:41 20:51 WBC (3.8-10.6) k/uL RBC (4.30-5.90) m/uL Hgb (13.0-17.5) gm/dL Hct (39.0-53.0) % RDW (11.5-15.5) % Carbon Dioxide (22-30) mmol/L BUN (9-20) mg/dL Creatinine (0.66-1.25) mg/dL POC Glucose (mg/dL) 112 H 134 H 149 H (75-99) mg/dL AST (17-59) U/L ALT (21-72) U/L Albumin (3.5-5.0) g/dL 08/13/16 08/13/16 08/13/16 Range/Units 02:09 06:05 06:05 WBC 15.3 H (3.8-10.6) k/uL RBC 2.56 L (4.30-5.90) m/uL Hgb 8.2 L (13.0-17.5) gm/dL Hct 23.9 L (39.0-53.0) % RDW 19.5 H (11.5-15.5) % Carbon Dioxide 19 L (22-30) mmol/L BUN 82 H* (9-20) mg/dL Creatinine 7.50 H* (0.66-1.25) mg/dL POC Glucose (mg/dL) 112 H (75-99) mg/dL AST 88 H (17-59) U/L ALT 74 H (21-72) U/L Albumin 3.2 L (3.5-5.0) g/dL 08/13/16 Range/Units 06:44 WBC (3.8-10.6) k/uL RBC (4.30-5.90) m/uL Hgb (13.0-17.5) gm/dL Hct (39.0-53.0) % RDW (11.5-15.5) % Carbon Dioxide (22-30) mmol/L BUN (9-20) mg/dL Creatinine (0.66-1.25) mg/dL POC Glucose (mg/dL) 105 H (75-99) mg/dL AST (17-59) U/L ALT (21-72) U/L Albumin (3.5-5.0) g/dL Microbiology - Last 24 Hours (Table) 08/01/16 16:15 Fungal Culture - Preliminary Bronchial Washings - Left Assessment and Plan Plan: Assessment: #1. End-stage renal disease maintained on hemodialysis on a Friday schedule via left upper extremity AV graft. #2. 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 #3. Left lung blood clots status post bronchoscopy 2. #4. Anemia. Hemoglobin stable. Plan: Hemodialysis today with goal 2 L ultrafiltration as blood pressure tolerates. Maintain Aranesp. Continue antibiotics. Continue with physical therapy. Hold antihypertensives for systolic blood pressure less than 120. Midodrine as needed. Potential discharge to rehab soon.
[2016-08-13] MEDS ORDERED: GELATIN SPONGE,ABSORB (SMALL) 1 EACH SPONGE ONE (11:00)
[2016-08-13 12:06] LABS: Hepatitis B Surface Ag Index 0.05
[2016-08-13 12:14] LABS: Glucose,Whole Blood 104 mg/dL (75-99)
[2016-08-13 12:28] LABS: Hepatitis B Surface Antibody POSITIVE (Negative)
[2016-08-13] MEDS: LISINOPRIL 10 MG TAB PO SCH (12:30)
--- NOTE | 2016-08-13 12:58 | P.PN ---
Subjective Principal diagnosis: Status post CABG, postoperative day #7 This is a 80-year-old white male with history of multiple medical problems including hypertension, previous ischemic heart disease and mild aortic stenosis. End-stage renal disease on hemodialysis. History of rheumatoid arthritis, patient was admitted recently with chest pain, cardiac enzymes were suggestive of non-ST elevation myocardial infarction, cardiac cath showed significant coronary artery disease with critical lesion in the proximal LAD also the proximal RCA. Today, the patient underwent myocardial revascularization by Dr. Alcaraz, and he was placed on mechanical ventilation postoperatively, seen in the ICU for consultation and postoperative ventilator management. Presently, the patient is on 100% FiO2, assist control rate of 12, PEEP of 5, and tidal volume of 500. Initial ABG showed a pO2 of 364, pCO2 of 42 pH of 7.32. However shortly after patient was placed on a 50% FiO2, and he was noted to have significant drop in his saturation based on pulse oximetry. Repeat ABG showed worsening oxygenation with a pO2 of 46 pCO2 of 50 and pH of 7.28. Hence placed back on 100%, increased his rate up to 16, and increased the PEEP to 10. Follow-up chest x-ray showed worsening pulmonary edema, remind you patient is a hemodialysis patient. Follow-up ABG is pending. Patient is presently fully sedated, and in no distress. Reevaluated today on 07/30/2016, patient is status post off pump double coronary artery bypass grafting using L REIJ to LAD, and reverse saphenous vein graft from the aorta to the posterior descending artery.patient remains on mechanical ventilation, chest x-ray is showing worsening picture of pulmonary edema, however the possibility of bleeding into the left midlung area and left lower lobe is not entirely ruled out there seems to be a worsening consolidation in the area of the left midlung and left lower lobe, hence may consider bronchoscopy on this patient. In the meantime, patient is being ultrafiltrate it today, and hopefully that will make a significant improvement on the chest x- ray appearance, and may help oxygenation.labs were reviewed, WBC count is 9.8 hemoglobin is 7.6 it was 6.5 earlier today,patient received a total of 5 units of packed RBCs since admission, 2 units of fresh frozen plasma, and 3 units of platelets. Reevaluated today on 07/31/2016, patient underwent another bronchoscopy today although his chest x-ray was showing some improvement compared to the chest x- ray yesterday after bronchoscopy. There was evidence of more aeration of the left upper lobe and lingula on the chest x-ray today. Today I was able to clear plugs from the left lower lobe bronchus, and from the lingular bronchus. Throughout the procedure there was some oozing of blood, and the mucosa of the bronchial tube was noted to be very fragile and bled easily. No biopsies were done. But suctioning and lavages of the left lower lobe and lingula was performed. In the meantime the patient remains on mechanical ventilations, today I increased his tidal volume up to 550 kept him on assist control rate of 16 I increased the flow rates up to 70, and FiO2 will be titrated down from 100 % during the bronchoscopy to as low as 50% as tolerated, and PEEP remains at 10 for the time being. Labs were reviewed, hemoglobin is 7.9 platelets are 114. Electrolytes were reviewed BUN is 31 creatinine is 4.29. On 08/01/2016, patient remains on mechanical ventilation, we were able earlier today to cut down the FiO2 to 50%, and PEEP was down to as low as 5%. However as the hemodialysis was started, patient began to desaturate, hence went back to a PEEP of 8. And increase his FiO2 to 55%. Patient is now undergoing hemodialysis, his chest x-ray is showing definite improvement, hence no need for bronchoscopy and evaluation of the left lung today. Still suctioning some bloody secretions from the endotracheal tube by respiratory. Labs were reviewed , hemoglobin is 7.3 today. Platelets are 101, INR is 1.1 electrolytes and renal profile were reviewed BUN is 24 creatinine is 3.24. Elevation of the left lung is definitely improved, small bilateral pleural effusions were noted On 08/02/2016, patient was reevaluated. I had to bronchoscope the patient late in the afternoon yesterday because of worsening chest x-ray and the patient continued to desaturate intermittently requiring increasing the FiO2 to 100%. Lavage was done of the left lower lobe lingula and left upper lobe, patient was placed on Decadron, cultures from the previous bronchoscopy came back positive for Pseudomonas, hence I started the patient today on Zosyn, and the patient is being followed by infectious disease on consultation. Patient remains on mechanical ventilation today, he is on a 50% and PEEP of 8 ABG showed a pO2 of 85 pCO2 of 33 pH of 7.48. Chest x-ray is showing better aeration of the left upper lobe lingula and left lower lobe, continues to have some atelectasis in the left lower lobe itself. It is not going to be dialyzed today, but will be dialyzed in a.m. BUN is 23 creatinine is 2.80 patient remains sedated on mechanical ventilation, however we plan to discontinue propofol briefly, assess his mental status today, and again he is not quite ready for extubation and weaning at this point. But this will definitely be addressed again tomorrow assuming his chest x-ray continues to show improvement. Reevaluated today on 08/03/2016, remains on mechanical ventilation, chest x-ray is showing definite improvement in the aeration of the left lung, patient will not eat to be bronchoscope today. However I do plan to consider a weaning trial on this patient today after hemodialysis. If tolerated may even proceeded to extubating the patient. ABG this morning showed a pO2 of 113 pCO2 of 29 pH of 7.50 hence I cut down the rate to 12, I also cut down the PEEP from 10-5. CBC showed hemoglobin of 7.1, I will leave it up to the surgeons to decide whether the patient needs to be transfused at this point. This may be done at the time of his dialysis. Electrolytes were reviewed BUN is 47 creatinine is 3.40. Chest x-ray as noted above. Reevaluated on 08/04/2016, remains on mechanical ventilation, chest x-ray today is showing slight worsening, I suspect there is some interstitial edema, and possibly minimal left lower lobe atelectasis or pneumonia involving the left lower lobe. ABG showed a pO2 of 123 pCO2 of 34 pH of 7.44 patient is presently on a PEEP of 5 and FiO2 of 50%. He has been off propofol for quite some time overnight, and I was hoping to assess his mental status today and likely extubated. However the patient remains lethargic off propofol, and considering the worsening of the chest x-ray, will likely have the patient dialyzed today, and address weaning again either later today or in a.m. We'll cut down the dose of Decadron, WBC count is down to 16.1 hemoglobin is 9.0 today The patient was seen again today in follow-up 08/05/2016. He was extubated approximately 5 PM yesterday and was maintained on 5 L/m per nasal cannula. This morning his saturations were 89-90%. He was seen by Dr. Alcaraz who placed the patient on BiPAP at 12/6 and 50%. Current blood gases reveal a pO2 of 87, pCO2 37, pH 7.45. A mild respiratory alkalosis. He is currently off sedation he has not received any pain medication or other forms of sedation. He is still quite difficult to arouse. He does open his eyes to verbal stimuli and he is moving all fours. He is maintaining good O2 saturations on 50%. He has a 0.9 normal saline at [facility]. He did receive dialysis again today with the plans to remove 4 L. His current creatinine is 3.20, BUN 56, hemoglobin 8.8 The bronchial wash did reveal pseudomonas aeruginosa. He is currently on Zosyn. Progress note dated 08/06/2016 This is a 80-year-old male who was extubated a couple days ago. I believe Tnoiwlamgswpeazb5MB.The patient has primarily been on BiPAP dependent since that time.Thepatient'xYbDJOcdcrihksx[id number]%. HisIVis0.0yi14mQehvaak.He is getting vital high protein at 30 with a goal of 30.VrvegvwwnrrylcsqdbxvadhllrxugsviYyjgh89jiw6.7Loffluidwasremoved.Hischestx- raysimproved.Heisapparentlygoingtohavehemodialysisagaintoday.I' mnotsurewhattheplanisfor.Hedidnothavebloodgasestoday. HeremainsonZosynforthePseudomonasrecoveredhisbronchialwash.AgainasImentionhische stx - raysimproved.Wearegoingtotryhimonsomenasalprongstoday.Helookslikehemightbeableto tolerateit. Progress note dated 08/07/2016 This is a 80-year-old male who was extubated on Friday evening. The patient is doing relatively well although for the first couple of days post extubation, he was BiPAP dependent. Yesterday we were able to transition him to nasal cannula. He is doing well. Did not need BiPAP all of last night. He is much more awake and alert. He is scheduled for hemodialysis. He's had hemodialysis last 2 days. Again he is much more awake and alert. Currently he is on O2 at 2 L. Not requiring BiPAP. He is getting appointment 9 IV at 20 mL an hour he is going to get hemodialysis today. Other than that things are going reasonably well but I think this patient should stay in the ICU for at least another day or so. The patient is seen again today 08/08/2016 in follow-up in the intensive care unit. He is currently awake and alert in no acute distress. He did have another 2-1/2 L removed per hemodialysis last evening. He is currently maintaining O2 saturation in the low 90s on 4 L/m per nasal cannula. He has a 0.9 at KVO via a PICC line. Today's chest x-ray reveals a right lower lobe infiltrate/effusion which is stable. He denies any worsening shortness of breath, cough or congestion. His bronchial wash findings from 08/01/2016 did reveal pseudomonas aeruginosa. He remains on bronchodilators and Zosyn. White count 11.4. Current BUN 52, creatinine 3.10. The patient is seen again today 08/12/2016 in follow-up on the selective care unit. He is awake and alert in no acute distress. He has remained quite weak and debilitated. He does deny any worsening shortness of breath, cough or congestion. He is maintaining good O2 saturations in the upper 90s on room air. He has been hemodynamically stable. The patient was seen again today 08/12/2016 in follow-up on the selective care unit. He is more awake and alert today as compared to yesterday. He is getting somewhat stronger. His chest x-ray continues to show stable bilateral tiny pleural effusions and subsegmental consolidation at the bases. He is maintaining good O2 saturations in the upper 90s on room air. He is attempting to work well with the incentive spirometer but needs continued encouragement. Objective - Vital Signs Vital signs: Vital Signs Temp 97 F L 08/13/16 08:00 Pulse 80 08/13/16 12:27 Resp 16 08/13/16 12:25 BP 93/45 08/13/16 12:25 Pulse Ox 96 08/13/16 12:25 Intake & Output 08/12/16 08/13/16 08/13/16 18:59 06:59 18:59 Intake Total 350 760 Balance 350 760 Weight 80.5 kg 82.5 kg Intake: IV 20 0.9 flush 20 Intake, IV Titration 100 Amount metroNIDAZOLE-NS PMX 500 100 mg In Saline 1 100ml.bag @ 100 mls/hr IVPB Q8HR [facility] Rx#:[id number] Oral 250 740 Other: Voiding Method Diaper Diaper Diaper # Voids 2 1 ABP, PAP, CO, CI - Last Documented Arterial Blood Pressure 156/51 Pulmonary Artery Pressure 40/30 Cardiac Output 6.4 Cardiac Index 3.3 - Exam GENERAL EXAM: Awake, alert in no acute distress. HEAD: Normocephalic. EYES: Risk reaction of pupils, equal size. NOSE: Clear with pink turbinates. THROAT: No erythema or exudates. NECK: No masses, no JVD. CHEST: No chest wall deformity. LUNGS: Equal air entry with crackles in the posterior bases. CVS: S1 and S2 normal with no audible murmurs, regular rhythm. ABDOMEN: No hepatosplenomegaly, normal bowel sounds. SPINE: No scoliosis or deformity SKIN: No rashes Extremities: There is trace peripheral edema. No clubbing, no cyanosis. Peripheral pulses are intact. - Labs CBC & Chem 7: 08/13/16 06:05 08/13/16 06:05 Labs: Abnormal Lab Results - Last 24 Hours (Table) 08/12/16 08/12/16 08/13/16 Range/Units 16:41 20:51 02:09 WBC (3.8-10.6) k/uL RBC (4.30-5.90) m/uL Hgb (13.0-17.5) gm/dL Hct (39.0-53.0) % RDW (11.5-15.5) % Carbon Dioxide (22-30) mmol/L BUN (9-20) mg/dL Creatinine (0.66-1.25) mg/dL POC Glucose (mg/dL) 134 H 149 H 112 H (75-99) mg/dL AST (17-59) U/L ALT (21-72) U/L Albumin (3.5-5.0) g/dL 08/13/16 08/13/16 08/13/16 Range/Units 06:05 06:05 06:44 WBC 15.3 H (3.8-10.6) k/uL RBC 2.56 L (4.30-5.90) m/uL Hgb 8.2 L (13.0-17.5) gm/dL Hct 23.9 L (39.0-53.0) % RDW 19.5 H (11.5-15.5) % Carbon Dioxide 19 L (22-30) mmol/L BUN 82 H* (9-20) mg/dL Creatinine 7.50 H* (0.66-1.25) mg/dL POC Glucose (mg/dL) 105 H (75-99) mg/dL AST 88 H (17-59) U/L ALT 74 H (21-72) U/L Albumin 3.2 L (3.5-5.0) g/dL 08/13/16 Range/Units 12:06 WBC (3.8-10.6) k/uL RBC (4.30-5.90) m/uL Hgb (13.0-17.5) gm/dL Hct (39.0-53.0) % RDW (11.5-15.5) % Carbon Dioxide (22-30) mmol/L BUN (9-20) mg/dL Creatinine (0.66-1.25) mg/dL POC Glucose (mg/dL) 104 H (75-99) mg/dL AST (17-59) U/L ALT (21-72) U/L Albumin (3.5-5.0) g/dL Microbiology - Last 24 Hours (Table) 08/01/16 16:15 Fungal Culture - Preliminary Bronchial Washings - Left Assessment and Plan Plan: Plan: Impression: 1 status post CABG 2 acute pulmonary edema as noted on the chest x-ray, recovered. Nose: The 3 history of mild aortic stenosis 4 history of mild LV dysfunction 5 history of chronic anemia 6 history of chronic renal failure on hemodialysis Friday schedule 7 history of hypertension 8 history of hyperlipidemia 9 history of right groin pseudoaneurysm following cardiac catheterization. 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 However the patient will not need to be bronchoscoped on 08/02. And on 08/03. And on 08/04 13 acute ventilator associated pneumonia is strongly suspected, patient has Pseudomonas in his bronchial washing from the left lower lobe, hence will continue Zosyn Plan: The patient was seen and evaluated by Dr. Lucas. His chest x-ray and labs were reviewed. He does remain quite weak and debilitated. The plan is for transfer to an extended care facility for continued inpatient rehabilitation in the next day or so. Physical therapy is working with the patient. We'll continue with his current pulmonary medications. We'll continue to increase his activity as tolerated. We'll continue to follow.
--- NOTE | 2016-08-13 15:06 | P.PN ---
Subjective Principal diagnosis: Status post CABG This is a 80-year-old gentleman who is status post coronary artery bypass grafting surgery. Postoperative course was complicated by intraoperative bleeding requiring bronchoscopy and prolonged ventilation. He is currently extubated and is being followed on the telemetry unit. He was sitting up in the chair at the time of our examination today. Overall his appetite is improving. He seems to be getting stronger. Arrangements are currently being made for the patient to be transferred to [facility] rehab, possibly today. Blood pressure today 94/60 with a heart rate of 90. Hemoglobin 8..2, potassium 5.0, BUN 82, creatinine 7.5. Objective - Vital Signs Vital signs: Vital Signs Temp 97 F L 08/13/16 08:00 Pulse 80 08/13/16 12:27 Resp 16 08/13/16 12:25 BP 93/45 08/13/16 12:25 Pulse Ox 96 08/13/16 12:25 Intake & Output 08/12/16 08/13/16 08/13/16 18:59 06:59 18:59 Intake Total 350 760 Balance 350 760 Weight 80.5 kg 82.5 kg Intake: IV 20 0.9 flush 20 Intake, IV Titration 100 Amount metroNIDAZOLE-NS PMX 500 100 mg In Saline 1 100ml.bag @ 100 mls/hr IVPB Q8HR [facility] Rx#:[id number] Oral 250 740 Other: Voiding Method Diaper Diaper Diaper # Voids 2 1 ABP, PAP, CO, CI - Last Documented Arterial Blood Pressure 156/51 Pulmonary Artery Pressure 40/30 Cardiac Output 6.4 Cardiac Index 3.3 - Exam PHYSICAL EXAMINATION: HEENT: Head is atraumatic, normocephalic. Pupils equal, round. Neck is supple. There is no elevated jugular venous pressure. HEART EXAMINATION: Heart S1, S2 normal. No murmur or gallop heard. CHEST EXAMINATION: Lungs are clear with mild diminished air entry to posterior bases. ABDOMEN: Soft, nontender. Bowel sounds are heard. No organomegaly noted. EXTREMITIES: 2+ peripheral pulses with no evidence of peripheral edema and no calf tenderness noted. NEUROLOGIC patient is awake, alert and oriented -3. . - Labs CBC & Chem 7: 08/13/16 06:05 08/13/16 06:05 Labs: Abnormal Lab Results - Last 24 Hours (Table) 08/12/16 08/12/1608/13/17 Range/Units 16:41 20:51 02:09 WBC (3.8-10.6) k/uL RBC (4.30-5.90) m/uL Hgb (13.0-17.5) gm/dL Hct (39.0-53.0) % RDW (11.5-15.5) % Carbon Dioxide (22-30) mmol/L BUN (9-20) mg/dL Creatinine (0.66-1.25) mg/dL POC Glucose (mg/dL) 134 H 149 H 112 H (75-99) mg/dL AST (17-59) U/L ALT (21-72) U/L Albumin (3.5-5.0) g/dL 08/13/16 08/13/16 08/13/16 Range/Units 06:05 06:05 06:44 WBC 15.3 H (3.8-10.6) k/uL RBC 2.56 L (4.30-5.90) m/uL Hgb 8.2 L (13.0-17.5) gm/dL Hct 23.9 L (39.0-53.0) % RDW 19.5 H (11.5-15.5) % Carbon Dioxide 19 L (22-30) mmol/L BUN 82 H* (9-20) mg/dL Creatinine 7.50 H* (0.66-1.25) mg/dL POC Glucose (mg/dL) 105 H (75-99) mg/dL AST 88 H (17-59) U/L ALT 74 H (21-72) U/L Albumin 3.2 L (3.5-5.0) g/dL 08/13/16 Range/Units 12:06 WBC (3.8-10.6) k/uL RBC (4.30-5.90) m/uL Hgb (13.0-17.5) gm/dL Hct (39.0-53.0) % RDW (11.5-15.5) % Carbon Dioxide (22-30) mmol/L BUN (9-20) mg/dL Creatinine (0.66-1.25) mg/dL POC Glucose (mg/dL) 104 H (75-99) mg/dL AST (17-59) U/L ALT (21-72) U/L Albumin (3.5-5.0) g/dL Microbiology - Last 24 Hours (Table) 08/01/16 16:15 Fungal Culture - Preliminary Bronchial Washings - Left Assessment and Plan (1) End-stage renal disease on hemodialysis Status: Acute (2) Hyperlipidemia Status: Acute (3) Hypertension Status: Acute (4) Non-STEMI (non-ST elevated myocardial infarction) Status: Acute (5) Status post aorto-coronary artery bypass graft Status: Acute (6) Diabetic foot ulcer associated with type 2 diabetes mellitus Status: Acute Plan: From cardiology's perspective, we will recommend to continue the patient on his current medications. Arrangements are being made for the patient to potentially transfer over to [facility] rehab today or tomorrow. DNP note has been reviewed, I agree with a documented findings and plan of care. Patient was seen and examined.
[2016-08-13] MEDS: MULTIVITAMINS, THERA 1 EACH TAB PO SCH (15:49)
[2016-08-13] MEDS: THIAMINE 100 MG TAB PO SCH (15:49)
[2016-08-13] MEDS: FOLIC ACID 1 MG TAB PO SCH (15:49)
--- NOTE | 2016-08-13 16:21 | P.PN ---
Progress Note - Text CV Surgery Nursing Principal diagnosis: Non-ST elevation myocardial infarction. POD #18 flexible nasal fiberoptic endoscopy POD #15 non-aortic clamp off pump double coronary artery bypass grafting x2 using the left internal mammary artery to the left anterior descending artery and reverse saphenous vein graft from the aorta to the posterior descending artery. Endoscopic harvesting of the right greater saphenous vein. Intraoperative transesophageal echocardiogram and epi-aortic scanning. Intraoperative graft flow measurements using the Medistim machine. Pt had intraparenchymal hemorrhage with increase oxygen demand after surgery requiring bronchoscopy. POD #12 bronchoscopy and bronchial alveolar lavage with bronchial washings demonstrate infection with pseudomonas, placed on IV zosyn, infectious disease following. Patient awake and alert, no distress noted, patient complaining of generalized weakness. Denies complaints of pain at this time. Vital Signs: Afebrile Vital Signs - 24 hr 08/12/16 08/12/16 08/12/16 16:25 16:34 16:45 Temperature Pulse Rate 80 84 Pulse Rate [ Pulse Oximetery ] Respiratory 16 Rate Blood Pressure [Right Arm] O2 Sat by Pulse Oximetry 08/12/16 08/12/16 08/12/16 17:07 20:00 20:25 Temperature 97 F L 97.3 F L Pulse Rate 80 Pulse Rate [ 87 89 Pulse Oximetery ] Respiratory 16 16 Rate Blood Pressure 107/48 93/53 [Right Arm] O2 Sat by Pulse 96 96 Oximetry 08/12/16 08/13/16 08/13/16 20:35 00:00 04:00 Temperature 98.2 F 97.5 F L Pulse Rate 80 Pulse Rate [ 102 H 86 Pulse Oximetery ] Respiratory 16 16 Rate Blood Pressure 114/55 86/46 [Right Arm] O2 Sat by Pulse 99 100 Oximetry 08/13/16 08/13/16 08/13/16 08:00 08:32 08:40 Temperature 97 F L Pulse Rate 88 88 Pulse Rate [ 92 Pulse Oximetery ] Respiratory 18 Rate Blood Pressure 130/54 [Right Arm] O2 Sat by Pulse 98 93 L Oximetry 08/13/16 08/13/16 08/13/16 12:04 12:25 12:27 Temperature Pulse Rate 80 80 Pulse Rate [ 89 Pulse Oximetery ] Respiratory 16 Rate Blood Pressure 93/45 [Right Arm] O2 Sat by Pulse 96 Oximetry 08/13/16 15:47 Temperature 97 F L Pulse Rate Pulse Rate [ 100 Pulse Oximetery ] Respiratory 16 Rate Blood Pressure 101/55 [Right Arm] O2 Sat by Pulse 96 Oximetry Labs: Short CBC 08/13/16 Range/Units 06:05 WBC 15.3 H (3.8-10.6) k/uL Hgb 8.2 L (13.0-17.5) gm/dL Hct 23.9 L (39.0-53.0) % Plt Count 150 (150-450) k/uL BMP 08/13/16 06:05 Sodium 138 Potassium 5.0 Chloride 103 Carbon Dioxide 19 L BUN 82 H* Creatinine 7.50 H* Glucose 94 Calcium 8.9 Liver Function 08/13/16 Range/Units 06:05 Total Bilirubin 1.0 (0.2-1.3) mg/dL AST 88 H (17-59) U/L ALT 74 H (21-72) U/L Alkaline Phosphatase 117 (38-126) U/L Albumin 3.2 L (3.5-5.0) g/dL Microbiology 08/01/16 16:15 Bronchial Washings - Left Fungal Culture - Preliminary 07/31/16 05:55 Blood Blood Culture - Final No Growth after 144 hours 07/31/16 05:55 Blood Blood Culture - Final No Growth after 144 hours 08/01/16 16:15 Bronchial Washings - Left Gram Stain - Final 08/01/16 16:15 Bronchial Washings - Left Bronchial Washings Culture - Final Pseudomonas aeruginosa 08/01/16 16:15 Bronchial Washings - Left Acid Fast Bacilli Smear - Final 08/01/16 16:15 Bronchial Washings - Left Acid Fast Bacilli Culture - Preliminary 07/25/16 20:46 Urine,Voided Urine Culture - Final Lungs: Few scattered crackles throughout, diminished bilateral bases. Respirations are unlabored. O2 sat: 96% on room air. I/S: 6449-6237 mL, reviewed with the patient the importance of using his incentive spirometry every hour while awake. The patient will need some help encouragement with using the incentive spirometry. Heart: S1S2, regular rhythm and rate, positive systolic murmur. Remote telemetry showing normal sinus rhythm heart rate 92. Sternum stable, chest incision clean and dry. Right leg incisions clean dry and well approximated. No drainage noted. knee-high DIONI hose and sequential compression devices in place right lower extremity. Left lower leg contact cast and place. Abdomen: Soft, Positive bowel sounds present in all 4 quadrants. Patient states he is no longer having loose stools. CBGs: 105-149 mg/dL last 24 hours. U/O: hemodialysis dependent, patient's left upper extremity AV fistula with positive bruit, positive thrill. He had hemodialysis today with 2.5 L of fluid removed. 24 hr Total: Intake & Output 08/11/16 08/12/16 08/13/16 08/14/16 06:59 06:59 06:59 06:59 Intake Total 608 489 2116 Balance 419 788 9157 Weight 81 kg 80.5 kg 82.5 kg Active Medications Hydrocodone Bitart/Acetaminophen ([place] 5-325) 2 each PO Q4HR PRN PRN Reason: Severe Pain Last Admin: 08/13/16 12:26 Dose: 2 each Hydrocodone Bitart/Acetaminophen ([place] 5-325) 1 each PO Q4HR PRN PRN Reason: Moderate Pain Last Admin: 08/12/16 06:45 Dose: 1 each Albuterol/Ipratropium (Duoneb 0.5 Mg-3 Mg/3 Ml Soln) 3 ml INHALATION RT-Q2H PRN PRN Reason: Shortness Of Breath Or Wheezing Albuterol/Ipratropium (Duoneb 0.5 Mg-3 Mg/3 Ml Soln) 3 ml INHALATION RT-QID [facility] Last Admin: 08/13/16 12:04 Dose: 3 ml Amiodarone HCl (Cordarone) 200 mg PO BID [facility] Last Admin: 08/13/16 08:07 Dose: 200 mg Aspirin (Aspirin) 81 mg PO DAILY [facility] Last Admin: 08/13/16 08:07 Dose: 81 mg Atorvastatin Calcium (Lipitor) 40 mg PO DAILY [facility] Last Admin: 08/13/16 08:07 Dose: 40 mg Benzocaine/Menthol (Cepacol Lozenge) 1 each MUCOUS MEM Q2H PRN PRN Reason: Sore Throat Bisacodyl (Dulcolax) 10 mg RECTAL DAILY PRN PRN Reason: Constipation Calcium Acetate (Phoslo) 667 mg PO TID-W/MEALS [facility] Last Admin: 08/13/16 15:49 Dose: Not Given Darbepoetin Kevin (Aranesp) 40 mcg SQ Q7D [facility] Last Admin: 08/08/16 17:24 Dose: 40 mcg Diphenoxylate HCl/Atropine (Lomotil Oral Soln) 2.5 ml PO QID PRN PRN Reason: Diarrhea Last Admin: 08/12/16 10:39 Dose: 2.5 ml Folic Acid (Folic Acid) 1 mg PO DAILY@1200 [facility] Last Admin: 08/13/16 15:49 Dose: Not Given Heparin Sodium (Porcine) (Heparin) 5,000 unit SQ Q8HR [facility] Last Admin: 08/13/16 08:06 Dose: 5,000 unit Hydralazine HCl (Apresoline) 10 mg IVP Q6HR PRN PRN Reason: Blood Pressure - High Last Admin: 08/06/16 10:27 Dose: 10 mg Insulin Human Lispro (Humalog) 0 unit SQ ACHS [facility] PRN Reason: Protocol Last Admin: 08/13/16 12:23 Dose: Not Given Lisinopril (Zestril) 10 mg PO DAILY [facility] Last Admin: 08/13/16 12:30 Dose: Not Given Magnesium Hydroxide (Milk Of Magnesia) 2,400 mg PO BID PRN PRN Reason: Constipation Metoclopramide HCl (Reglan) 10 mg IVP Q4H PRN PRN Reason: Nausea And Vomiting Metoprolol Tartrate (Lopressor) 25 mg PO BID [facility] Last Admin: 08/13/16 11:38 Dose: Not Given Miscellaneous Information (Magnesium Per Protocol) 1 each MISCELLANE DAILY PRN ; Protocol PRN Reason: Per Protocol Miscellaneous Information (Phosphorus Per Protocol) 1 each MISCELLANE DAILY PRN ; Protocol PRN Reason: Per Protocol Miscellaneous Information (Potassium Per Protocol) 1 each MISCELLANE DAILY PRN ; Protocol PRN Reason: Per Protocol Multivitamins (Theragran) 1 each PO DAILY@1200 [facility] Last Admin: 08/13/16 15:49 Dose: Not Given Nystatin (Mycostatin Oral Susp) 500,000 unit PO QID [facility] Last Admin: 08/13/16 15:49 Dose: Not Given Ondansetron HCl (Zofran) 4 mg IVP Q6HR PRN PRN Reason: Nausea And Vomiting Pantoprazole Sodium (Protonix) 40 mg PO AC-BRKFST [facility] Last Admin: 04/25/17 08:07 Dose: 40 mg Senna/Docusate Sodium (Senokot-S) 2 each PO HS [facility] Last Admin: 08/12/16 20:25 Dose: Not Given Sodium Chloride (Saline Flush) 10 ml IV BID [facility] Last Admin: 08/13/16 08:07 Dose: 10 ml Sodium Chloride (Saline Flush) 20 ml IV Q4HR PRN PRN Reason: PICC Line Sodium Chloride (Saline Flush) 10 ml IV WEEKLY [facility] Last Admin: 08/09/16 09:20 Dose: 10 ml Sodium Chloride (Saline Flush) 10 ml IV Q4HR PRN PRN Reason: PICC Line Sodium Chloride (Saline Flush) 10 ml IV Q12HR [facility] Last Admin: 08/13/16 08:08 Dose: 10 ml Thiamine HCl (Vitamin B-1) 100 mg PO DAILY@1200 [facility] Last Admin: 08/13/16 15:49 Dose: Not Given Plan: 1. Continue aspirin, Lipitor, heparin SQ, lisinopril, lopressor and amiodarone. 2. nephrology on board for hemodialysis management. 2.5 L of fluid removed today. 3. PT/OT to work with patient, out of bed to chair today. 4. Dr. Gordon from infectious disease is following. Antibiotics will be discontinued. 5. Encourage incentive spirometry use every hour while awake. 6. Will continue to monitor labs, chest x-rays. 7. Insulin management per primary service. 8. GI/DVT prophylaxis. 9. Wound care center placed patient's total contact cast and will need to be changed on 08/14/2016.. 10. Dr. Cary for pulmonary management. 11. Stool specimen for C. diff. 12. Case management/social work on for discharge planning. Will need to be evaluated for discharge to rehab facility or possibly select specialty for long- term acute care needs. Select specialty evaluation pending.
[2016-08-13 16:57] LABS: Glucose,Whole Blood 116 mg/dL (75-99)
[2016-08-13 20:44] LABS: Glucose,Whole Blood 129 mg/dL (75-99)
[2016-08-13] MEDS: predniSONE 5 MG TAB PO SCH (20:59)
[2016-08-13] MEDS: SENNOSIDES-DOCUSATE SODIUM 1 EACH TAB PO SCH (20:59)
[2016-08-13] MEDS: ALLOPURINOL 100 MG TAB PO SCH (20:59)
--- NOTE | 2016-08-13 21:57 | P.PN ---
Subjective Principal diagnosis: cough This is a 80-year-old male known to infectious disease service as he has been treated for infection to his shunt on his left arm before as well as ulceration to his left heel. Patient states that he presented to [facility] because he was initially having epistaxis. This was on Friday. The bleeding was controlled and he was discharged home. He then returned on Friday as he woke up in the morning at 2 AM with a cough and shortness of breath that had been going on but continued to worsen. Patient was diagnosed with a non-ST elevated myocardial infarction and was transferred to [facility] on July 25 for heart catheterization that found two-vessel disease of the proximal LAD and proximal RCA with mild aortic stenosis. He has been evaluated by cardiothoracic surgery and is scheduled for CABG on June 28. Patient does have history of end-stage renal disease on hemodialysis Friday and Friday and is followed by Dr. Fernandez. He denies any problems with his dialysis AV fistula in his left arm. [facility] under the care of Dr. Carey. He has a total contact cast to the left lower extremity . Regarding his epistaxis, patient was seen by Dr. Chen on underwent flexible nasal endoscopy finding a right anterior septal ulcer. Dr. Lucas is following from pulmonary medicine. Upon review of his previous wound cultures, he does have history of MRSA. Patient does have history of rheumatoid arthritis on prednisone only. 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 He has been evaluated by interventional radiology and repairs been performed. He is doing well and folow up shows resolution of the pseudoaneurysm The cardiothoracic surgeries occurred. He did well ,but had some bleeding into his lungs. A bronchoscopy was done to remove blood clots. Cultures reveal evidence pseudomonas aeruginosa from the BAL. Antibiotic therapy with Zosyn was begun. AP and fungal cultures are negative. Patient is improved out of the intensive care unit. Patient complains of some discomfort of buttocks, not new but worse now sitting in chair. Overall he is feeling better today. Eating much better. Having no other new complaints. He did have some diarrhea that has resolved. Metronidazole was discontinued Objective - Vital Signs Vital signs: Vital Signs Temp 97 F L 08/13/16 15:47 Pulse 100 08/13/16 15:47 Resp 16 08/13/16 15:47 BP 101/55 08/13/16 15:47 Pulse Ox 96 08/13/16 15:47 Intake & Output 08/13/16 08/13/16 08/14/16 06:59 18:59 06:59 Intake Total 760 Balance 760 Weight 82.5 kg Intake: IV 20 0.9 flush 20 Oral 740 Other: Voiding Method Diaper Diaper # Voids 1 # Bowel Movements 1 ABP, PAP, CO, CI - Last Documented Arterial Blood Pressure 156/51 Pulmonary Artery Pressure 40/30 Cardiac Output 6.4 Cardiac Index 3.3 - Exam Gen: This is a 80-year-old male. On selective care. Extubated. Sitting upright. Able to communicate. HEENT: Head is atraumatic, normocephalic. Pupils equal, round. Sclerae is anicteric. Conjunctiva pink. Mucous members of the mouth are moist. No thrush noted. NECK: Supple. No JVD. No lymphadenopathy. No thyromegaly. LUNGS: Coarse crackles throughout the lung cotto HEART: Regular rate and rhythm. No murmur. ABDOMEN: Soft. Bowel sounds are present. No masses. No tenderness. EXTREMITIES: Total contact cast is back in place in the left leg. The right leg is without significant edema, pseudoaneurysm site to the right leg continues to heal and the ecchymosis is improving Skin: With the aids present the patient is started. There is evidence of some minimal erythema to the buttocks. No open ulcerations are seen in the buttocks or the coccyx. He is producing some stool that is thickened pasty in nature. There is no kris diarrhea. Dialysis graft of the left arm is intact.Difficulty with a skin tear NEUROLOGICAL: Sitting upright. A little more strength apparently was able to stand momentarily with a 2 person assist - Labs CBC & Chem 7: 08/13/16 06:05 08/13/16 06:05 Labs: Abnormal Lab Results - Last 24 Hours (Table) 08/13/16 08/13/16 08/13/16 Range/Units 02:09 06:05 06:05 WBC 15.3 H (3.8-10.6) k/uL RBC 2.56 L (4.30-5.90) m/uL Hgb 8.2 L (13.0-17.5) gm/dL Hct 23.9 L (39.0-53.0) % RDW 19.5 H (11.5-15.5) % Carbon Dioxide 19 L (22-30) mmol/L BUN 82 H* (9-20) mg/dL Creatinine 7.50 H* (0.66-1.25) mg/dL POC Glucose (mg/dL) 112 H (75-99) mg/dL AST 88 H (17-59) U/L ALT 74 H (21-72) U/L Albumin 3.2 L (3.5-5.0) g/dL 08/13/16 08/13/16 08/13/16 Range/Units 06:44 12:06 16:52 WBC (3.8-10.6) k/uL RBC (4.30-5.90) m/uL Hgb (13.0-17.5) gm/dL Hct (39.0-53.0) % RDW (11.5-15.5) % Carbon Dioxide (22-30) mmol/L BUN (9-20) mg/dL Creatinine (0.66-1.25) mg/dL POC Glucose (mg/dL) 105 H 104 H 116 H (75-99) mg/dL AST (17-59) U/L ALT (21-72) U/L Albumin (3.5-5.0) g/dL 08/13/16 Range/Units 20:41 WBC (3.8-10.6) k/uL RBC (4.30-5.90) m/uL Hgb (13.0-17.5) gm/dL Hct (39.0-53.0) % RDW (11.5-15.5) % Carbon Dioxide (22-30) mmol/L BUN (9-20) mg/dL Creatinine (0.66-1.25) mg/dL POC Glucose (mg/dL) 129 H (75-99) mg/dL AST (17-59) U/L ALT (21-72) U/L Albumin (3.5-5.0) g/dL Laboratory Results WBC 15.3 k/uL (3.8-10.6) H 08/13/16 06:05 RBC 2.56 m/uL (4.30-5.90) L 08/13/16 06:05 Hgb 8.2 gm/dL (13.0-17.5) L 08/13/16 06:05 Hct 23.9 % (39.0-53.0) L 08/13/16 06:05 MCV 93.4 fL (80.0-100.0) 08/13/16 06:05 MCH 32.1 pg (25.0-35.0) 08/13/16 06:05 MCHC 34.4 g/dL (31.0-37.0) 08/13/16 06:05 RDW 19.5 % (11.5-15.5) H 08/13/16 06:05 Plt Count 150 k/uL (150-450) 08/13/16 06:05 Neutrophils % 88 % 08/09/16 07:35 Neutrophils % (Manual) 81.0 % 07/29/16 14:10 Band Neutrophils % 4.0 % 07/29/16 14:10 Lymphocytes % 6 % 08/09/16 07:35 Lymphocytes % (Manual) 9.0 % 07/29/16 14:10 Monocytes % 4 % 08/09/16 07:35 Monocytes % (Manual) 2.0 % 07/29/16 14:10 Eosinophils % 1 % 08/09/16 07:35 Eosinophils % (Manual) 4.0 % 07/29/16 14:10 Basophils % 0 % 08/09/16 07:35 Myelocytes % 0.5 % 07/26/16 06:10 Neutrophils # 9.7 k/uL (1.3-7.7) H 08/09/16 07:35 Neutrophils # (Manual) 12.2 k/uL (1.3-7.7) H 07/29/16 14:10 Lymphocytes # 0.6 k/uL (1.0-4.8) L 08/09/16 07:35 Lymphocytes # (Manual) 1.3 k/uL (1.0-4.8) 07/29/16 14:10 Monocytes # 0.5 k/uL (0-1.0) 08/09/16 07:35 Monocytes # (Manual) 0.3 k/uL (0-1.0) 07/29/16 14:10 Eosinophils # 0.1 k/uL (0-0.7) 08/09/16 07:35 Eosinophils # (Manual) 0.6 k/uL (0-0.7) 07/29/16 14:10 Basophils # 0.0 k/uL (0-0.2) 08/09/16 07:35 Nucleated RBCs 0 /100 WBC (0-0) 07/29/16 14:10 Manual Slide Review Performed 08/04/16 05:45 Polychromasia Present 07/29/16 14:10 Hypochromasia Slight 08/13/16 06:05 Poikilocytosis Slight 08/13/16 06:05 Poikilocytosis (manual Present 07/26/16 06:10 Anisocytosis Slight 08/13/16 06:05 Macrocytosis Slight 08/13/16 06:05 PT 13.0 sec (9.0-12.0) H 08/09/16 07:35 INR 1.3 (<1.1) 08/09/16 07:35 APTT 46.6 sec (22.0-30.0) H 08/09/16 07:35 Fibrinogen 206 mg/dL (200-500) 07/29/16 14:10 Sample Site BEMENT 08/05/16 21:25 ABG pH 7.46 (7.35-7.45) H 08/05/16 21:25 ABG pCO2 37 mmHg (35-45) 08/05/16 21:25 ABG pO2 111 mmHg (83-108) H 08/05/16 21:25 ABG HCO3 25 mmol/L (21-25) 08/05/16 21:25 ABG Total CO2 27 mmol/L (19-24) H 08/05/16 21:25 ABG O2 Saturation 98.0 % (94-97) H 08/05/16 21:25 ABG Base Excess 1.8 mmol/L 08/05/16 21:25 FiO2 40 % 08/05/16 21:25 Sodium 138 mmol/L (137-145) 08/13/16 06:05 Potassium 5.0 mmol/L (3.5-5.1) 08/13/16 06:05 Chloride 103 mmol/L (98-107) 08/13/16 06:05 Carbon Dioxide 19 mmol/L (22-30) L 08/13/16 06:05 Anion Gap 16 mmol/L 08/13/16 06:05 BUN 82 mg/dL (9-20) H* 08/13/16 06:05 Creatinine 7.50 mg/dL (0.66-1.25) H* 08/13/16 06:05 Est GFR (MDRD) Af Amer 9 (>60 ml/min/1.73 sqM) 08/13/16 06:05 Est GFR (MDRD) Non-Af 7 (>60 ml/min/1.73 sqM) 08/13/16 06:05 Glucose 94 mg/dL (74-99) 08/13/16 06:05 POC Glucose (mg/dL) 129 mg/dL (75-99) H 08/13/16 20:41 POC Glu Glass Lined Tank Repairer ID Deborah Holloway 08/13/16 20:[address] Glu mg/dL 111 mg/dL 07/25/16 06:21 Hemoglobin A1c 5.5 % (4.2-6.1) 07/25/16 06:21 Calcium 8.9 mg/dL (8.4-10.2) 08/13/16 06:05 Ionized Calcium Lance 4.5 mg/dL (4.5-5.3) 08/05/16 04:55 Phosphorus 4.4 mg/dL (2.5-4.5) 08/09/16 07:35 Magnesium 2.2 mg/dL (1.6-2.3) 08/09/16 07:35 Iron 30 ug/dL (49-181) L 07/27/16 05:54 TIBC 273 ug/dL (261-462) 07/27/16 05:54 % Saturation 11.0 % (20-50) L 07/27/16 05:54 Total Bilirubin 1.0 mg/dL (0.2-1.3) 08/13/16 06:05 AST 88 U/L (17-59) H 08/13/16 06:05 ALT 74 U/L (21-72) H 08/13/16 06:05 Alkaline Phosphatase 117 U/L (38-126) 08/13/16 06:05 NT-Pro-B Natriuret Pep 22865 pg/mL 07/25/16 06:21 Total Protein 6.4 g/dL (6.3-8.2) 08/13/16 06:05 Albumin 3.2 g/dL (3.5-5.0) L 08/13/16 06:05 Triglycerides 78 mg/dL (<150) 07/26/16 06:10 Cholesterol 143 mg/dL (<200) 07/26/16 06:10 LDL Cholesterol, Calc 72 mg/dL (0-99) 07/26/16 06:10 HDL Cholesterol 55 mg/dL (40-60) 07/26/16 06:10 TSH 3.000 mIU/L (0.465-4.680) 07/26/16 06:10 Urine Color Light Yellow 07/25/16 20:46 Urine Appearance Clear (Clear) 07/25/16 20:46 Urine pH 8.0 (5.0-8.0) 07/25/16 20:46 Ur Specific [place] 1.007 (1.001-1.035) 07/25/16 20:46 Urine Protein 2+ (Negative) H 07/25/16 20:46 Urine Glucose (UA) 1+ (Negative) H 07/25/16 20:46 Urine Ketones Negative (Negative) 07/25/16 20:46 Urine Blood Trace (Negative) H 07/25/16 20:46 Urine Nitrite Negative (Negative) 07/25/16 20:46 Urine Bilirubin Negative (Negative) 07/25/16 20:46 Urine Urobilinogen <2.0 mg/dL (<2.0) 07/25/16 20:46 Ur Leukocyte Esterase Negative (Negative) 07/25/16 20:46 Urine RBC <1 /hpf (0-5) 07/25/16 20:46 Urine WBC <1 /hpf (0-5) 07/25/16 20:46 Ur Squamous Epith Cells <1 /hpf (0-4) 07/25/16 20:46 Urine Bacteria Rare /hpf (None) H 07/25/16 20:46 Stool Occult Blood Positive (Negative) 07/25/16 20:46 Random Vancomycin 9.5 ug/mL 07/30/16 06:00 c-ANCA <1:20 Titer (<1:20) 07/31/16 08:45 p-ANCA <1:20 Titer (<1:20) 07/31/16 08:45 C. difficile (EIA) Intrp Negative (Negative) 08/12/16 02:30 Hepatitis A IgM Ab NEGATIVE 07/26/16 06:10 Hep Bs Antigen Negative 08/12/16 06:23 Hep Bs Antibody POSITIVE (Negative) 08/12/16 06:23 Hep B Core IgM Ab NEGATIVE 07/26/16 06:10 Hep C IgG Ab Negative (Negative) 07/26/16 06:10 Virus Source See Below 08/01/16 16:15 Viral Test See Below 08/01/16 16:15 Virus Analysis Interp See Below 08/01/16 16:15 Blood Type B Positive 08/03/16 08:00 Blood Type Confirm B Positive 07/27/16 05:59 Blood Type Recheck No 08/03/16 08:00 Antibody Screen NEGATIVE 08/03/16 08:00 Crossmatch See Detail 08/03/16 08:00 Transfuse Plasma 07/29/2016 07/29/16 12:59 Transfuse Platelets 07/29/2016 07/29/16 13:00 Spec Expiration Date 08/06/2016 - 229908/03/16 08:00 Microbiology 08/01/16 16:15 Bronchial Washings - Left Fungal Culture - Preliminary 07/31/16 05:55 Blood Blood Culture - Final No Growth after 144 hours 07/31/16 05:55 Blood Blood Culture - Final No Growth after 144 hours 08/01/16 16:15 Bronchial Washings - Left Gram Stain - Final 08/01/16 16:15 Bronchial Washings - Left Bronchial Washings Culture - Final Pseudomonas aeruginosa 08/01/16 16:15 Bronchial Washings - Left Acid Fast Bacilli Smear - Final 08/01/16 16:15 Bronchial Washings - Left Acid Fast Bacilli Culture - Preliminary 07/25/16 20:46 Urine,Voided Urine Culture - Final Assessment and Plan (1) Non-STEMI (non-ST elevated myocardial infarction) Status: Acute (2) Diabetic foot ulcer associated with type 2 diabetes mellitus Narrative/Plan: The total contact cast is in reapplied to the left leg. Doing well. Continues to recover from his cardiovascular surgery. 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 BAL that showed evidence of pseudomonas aeruginosa was treated with piperacillin tazobactam. The 7 day course is complete. Continue ongoing supportive care. His neurological status continues to improve. The pseudoaneurysm to the right groin continues to heal, ecchymosis is improving. Daily improvement is being recorded. We'll go to rehab at discharge. Has been tolerating dialysis without difficulties. Patient is complaining of some pain to his coccyx and buttocks. No ulcerations are seen. The zinc protective ointment is applied. Cushioning is obtained for his chair and his bed. . The patient's relates when he is at dialysis does utilize a cushion on his chair because he does have pain when he sits in a chair. This is not new. Improved appetite showing some improvement today. Metronidazole discontinued no C Diff found Status: Acute
--- NOTE | 2016-08-13 23:00 | PN ---
DATE OF SERVICE: 08/13/2016 This 80-year-old gentleman who was admitted after CAD, CABG also had renal failure. The patient is extremely weak and tired at this time. The possibility of rehab versus [facility] re[facility] versus [facility] rehab is being considered at this time. Multiple consultants are following the patient closely. The sensorium has definitely much at this time. Oral intake is also improving. Patient is receiving hemodialysis currently. No fever. No shortness of breath. On exam, alert and oriented x2. Pulse 100, blood pressure 101/55, respiration 16, temperature 97 degrees, pulse ox 96% on room air. HEENT: Conjunctivae normal. NECK: No jugular venous distention. CARDIOVASCULAR SYSTEM: S1, S2 muffled. RESPIRATORY SYSTEM: Breath sounds diminished at the bases. A few scattered rhonchi and crackles. ABDOMEN: Soft, non-tender. LEGS: No edema. No swelling. NERVOUS SYSTEM: No focal deficit. LABS: WBC 15.3, hemoglobin 8.2. Creatinine is 7.5. ASSESSMENT: 1. Acute poq-RI-vodgcjn-elevation myocardial infarction, status post coronary artery bypass grafting. 2. Acute hypoxic respiratory failure, status post coronary artery bypass grafting, secondary to pulmonary edema, status post BiPAP dependent. 3. Acute on chronic exacerbation of congestive heart failure with acute on chronic systolic dysfunction. 4. Chronic kidney disease, end-stage, stage V, on hemodialysis. 5. Mild aortic stenosis. 6. Hypertension, essential. 7. Hyperlipidemia. 8. Generalized asthenia. 9. History of rheumatoid arthritis. 10. History of metabolic bone disease. 11. History of hyperphosphatemia secondary to end-stage renal disease. 12. Anemia; anemia of chronic kidney disease. 13. Left mainstem bronchus blood clot leading to left lung collapse postoperatively, status post bronchoscopy. 14. Possible pneumonia, left lower lobe, status post bronchoscopy reporting Pseudomonas aeruginosa. 15. Mildly elevated liver function tests. 16. Hypoalbuminemia. 17. FULL CODE. RECOMMENDATIONS AND DISCUSSION: In this 80-year-old gentleman who presented with multiple complex medical issues, we will monitor the patient closely, continue the current medications, continue symptomatic treatment. I would recommend continuing with antiplatelet agents and bronchodilators and beta blockers. Otherwise, PT and OT evaluated the patient for possible rehab potential. Guarded prognosis because of multiple complex medical issues. Further recommendations to follow. MTDD
[2016-08-14 02:59] LABS: Glucose,Whole Blood 120 mg/dL (75-99)
[2016-08-14 06:47] LABS: Glucose,Whole Blood 106 mg/dL (75-99)
[2016-08-14] MEDS: CALCIUM ACETATE 667 MG CAP PO SCH ×3 (06:47→17:26)
[2016-08-14] MEDS: PANTOPRAZOLE 40 MG TABLET PO SCH (06:47)
[2016-08-14] MEDS: HYDROcodone/APAP 5-325MG 1 EACH TAB PO PRN ×2 (06:47→10:44)
[2016-08-14] MEDS: INSULIN LISPRO (humaLOG) 300 UNIT/3 ML VIAL SQ SCH ×4 (06:49→22:00)
[2016-08-14 07:41] LABS: Anisocytosis Slight; CH 30.5; CHCM 32.8; HCT 21.6 % (39.0-53.0); HDW 3.79; HGB 7.3 gm/dL (13.0-17.5); Hypochromasia Slight; MCH 31.6 pg (25.0-35.0); MCHC 33.6 g/dL (31.0-37.0); MCV 94.1 fL (80.0-100.0); Macrocytosis Slight; Mean Platelet Volume 8.9; Poikilocytosis Slight; RBC 2.29 m/uL (4.30-5.90); RDW 19.8 % (11.5-15.5); WBC 13.4 k/uL (3.8-10.6)
[2016-08-14] MEDS: AMIODARONE 200 MG TAB PO SCH ×2 (08:27→21:59)
[2016-08-14] MEDS: ATORVASTATIN 40 MG TAB PO SCH (08:27)
[2016-08-14] MEDS: ASPIRIN 81 MG CHEW PO SCH (08:27)
[2016-08-14] MEDS: ALLOPURINOL 100 MG TAB PO SCH (08:27)
[2016-08-14] MEDS: LISINOPRIL 10 MG TAB PO SCH (08:27)
[2016-08-14] MEDS: HEPARIN SODIUM,PORCINE 5,000 UNIT/ML 1 ML VIAL SQ SCH ×3 (08:27→23:27)
[2016-08-14] MEDS: NYSTATIN 100,000 UNIT/ML SUSP 500,000 UNIT/5 ML CUP PO SCH ×4 (08:27→21:59)
[2016-08-14] MEDS: predniSONE 5 MG TAB PO SCH (08:27)
[2016-08-14] MEDS: METOPROLOL TARTRATE 25 MG TAB PO SCH ×2 (08:27→23:27)
[2016-08-14 08:41] LABS: Calcium 8.7 mg/dL (8.4-10.2); Potassium 4.3 mmol/L (3.5-5.1); Total Protein 6.3 g/dL (6.3-8.2)
--- NOTE | 2016-08-14 10:53 | P.PN ---
Subjective Patient seen in follow-up for end-stage renal disease. He is maintained on hemodialysis on a Friday schedule. He was extubated August 04 and is currently on a nasal cannula. He's been undergoing dialysis almost on a daily basis and is now back on Friday schedule. He underwent 2 bronchoscopies this admission revealing left lung bleeding. Bronchial washings positive for Pseudomonas. He is communicating well. Currently having breakfast. He underwent hemodialysis Friday with 2.5 L ultrafiltration. Appetite is good. No active complaints at this time. Vital signs are stable. General: The patient appeared well nourished and normally developed. HEENT: Head exam is unremarkable. Neck is without jugular venous distension. LUNGS: Diffuse rhonchi. Breath sounds decreased. HEART: Rate and Rhythm are regular. First and second heart sounds normal. No murmurs, rubs or gallops. ABDOMEN: Abdominal exam reveals normal bowel sounds. Non-tender and non- distended. No evidence of peritonitis. EXTREMITITES: Trace edema. Objective - Vital Signs Vital signs: Vital Signs Temp 96.8 F L 08/14/16 08:00 Pulse 83 08/14/16 08:00 Resp 16 08/14/16 08:00 BP 85/44 08/14/16 08:00 Pulse Ox 96 08/14/16 08:00 Intake & Output 08/13/16 08/14/16 08/14/16 18:59 06:59 18:59 Intake Total 150 Balance 150 Weight 81.5 kg Intake: Oral 150 Other: Voiding Method Diaper Diaper Diaper # Bowel Movements 1 1 ABP, PAP, CO, CI - Last Documented Arterial Blood Pressure 156/51 Pulmonary Artery Pressure 40/30 Cardiac Output 6.4 Cardiac Index 3.3 - Labs CBC & Chem 7: 08/14/16 06:25 08/14/16 06:25 Labs: Abnormal Lab Results - Last 24 Hours (Table) 08/13/16 08/13/16 08/13/16 Range/Units 12:06 16:52 20:41 WBC (3.8-10.6) k/uL RBC (4.30-5.90) m/uL Hgb (13.0-17.5) gm/dL Hct (39.0-53.0) % RDW (11.5-15.5) % BUN (9-20) mg/dL Creatinine (0.66-1.25) mg/dL POC Glucose (mg/dL) 104 H 116 H 129 H (75-99) mg/dL AST (17-59) U/L ALT (21-72) U/L Albumin (3.5-5.0) g/dL 08/14/16 08/14/16 08/14/16 Range/Units 02:58 06:25 06:25 WBC 13.4 H (3.8-10.6) k/uL RBC 2.29 L (4.30-5.90) m/uL Hgb 7.3 L (13.0-17.5) gm/dL Hct 21.6 L (39.0-53.0) % RDW 19.8 H (11.5-15.5) % BUN 50 H (9-20) mg/dL Creatinine 5.09 H* (0.66-1.25) mg/dL POC Glucose (mg/dL) 120 H (75-99) mg/dL AST 116 H (17-59) U/L ALT 97 H (21-72) U/L Albumin 3.2 L (3.5-5.0) g/dL 08/14/16 Range/Units 06:45 WBC (3.8-10.6) k/uL RBC (4.30-5.90) m/uL Hgb (13.0-17.5) gm/dL Hct (39.0-53.0) % RDW (11.5-15.5) % BUN (9-20) mg/dL Creatinine (0.66-1.25) mg/dL POC Glucose (mg/dL) 106 H (75-99) mg/dL AST (17-59) U/L ALT (21-72) U/L Albumin (3.5-5.0) g/dL Assessment and Plan Plan: Assessment: #1. End-stage renal disease maintained on hemodialysis on a Friday schedule via left upper extremity AV graft. #2. 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 #3. Left lung blood clots status post bronchoscopy 2. #4. Anemia. Hemoglobin trending down. 7.3 today. Plan: Hemodialysis tomorrow with goal 2 L ultrafiltration as blood pressure tolerates. Maintain Aranesp. Continue with physical therapy. Hold antihypertensives for systolic blood pressure less than 120. Midodrine as needed. Potential discharge to rehab soon. Consider blood transfusion if hemoglobin continues to trend down. No signs of active bleeding.
[2016-08-14] MEDS: MIDODRINE 5 MG TAB PO SCH ×3 (11:06→17:26)
[2016-08-14 11:48] LABS: Glucose,Whole Blood 142 mg/dL (75-99)
[2016-08-14] MEDS: IPRATROPIUM-ALBUTEROL 3 ML NEB INHALATION SCH ×4 (12:05→21:33)
[2016-08-14] MEDS: THIAMINE 100 MG TAB PO SCH (12:51)
[2016-08-14] MEDS: MULTIVITAMINS, THERA 1 EACH TAB PO SCH (12:51)
[2016-08-14] MEDS: FOLIC ACID 1 MG TAB PO SCH (12:51)
[2016-08-14 13:26] LABS: ABG Base Excess -1.3 mmol/L; ABG HCO3 22 mmol/L (21-25); ABG Oxygen Saturation 99.8 % (94-97); ABG PCO2 33 mmHg (35-45); ABG PH 7.45 (7.35-7.45); ABG PO2 221 mmHg (83-108); ABG TCO2 23 mmol/L (19-24)
[2016-08-14 13:27] LABS: ABG Base Excess -1.9 mmol/L; ABG HCO3 22 mmol/L (21-25); ABG Oxygen Saturation 99.9 % (94-97); ABG PCO2 36 mmHg (35-45); ABG PH 7.41 (7.35-7.45); ABG PO2 292 mmHg (83-108); ABG TCO2 23 mmol/L (19-24)
[2016-08-14 13:29] LABS: ABG Base Excess -1.6 mmol/L; ABG HCO3 22 mmol/L (21-25); ABG Oxygen Saturation 99.9 % (94-97); ABG PCO2 36 mmHg (35-45); ABG PH 7.41 (7.35-7.45); ABG PO2 272 mmHg (83-108); ABG TCO2 23 mmol/L (19-24)
[2016-08-14 13:30] LABS: ABG HCO3 23 mmol/L (21-25); ABG Oxygen Saturation 99.9 % (94-97); ABG PCO2 46 mmHg (35-45); ABG PH 7.31 (7.35-7.45); ABG PO2 322 mmHg (83-108); ABG TCO2 24 mmol/L (19-24)
[2016-08-14 13:31] LABS: ABG Base Excess -3.1 mmol/L; ABG HCO3 21 mmol/L (21-25); ABG PCO2 35 mmHg (35-45); ABG PO2 237 mmHg (83-108); ABG TCO2 22 mmol/L (19-24)
[2016-08-14 13:32] LABS: ABG Oxygen Saturation 99.8 % (94-97)
[2016-08-14 13:33] LABS: ABG Base Excess -2.8 mmol/L; ABG HCO3 22 mmol/L (21-25); ABG Oxygen Saturation 99.8 % (94-97); ABG PCO2 40 mmHg (35-45); ABG PH 7.36 (7.35-7.45); ABG PO2 244 mmHg (83-108); ABG TCO2 23 mmol/L (19-24)
[2016-08-14 13:34] LABS: ABG Base Excess -3.2 mmol/L; ABG HCO3 22 mmol/L (21-25); ABG Oxygen Saturation 99.7 % (94-97); ABG PCO2 41 mmHg (35-45); ABG PH 7.34 (7.35-7.45); ABG PO2 222 mmHg (83-108); ABG TCO2 23 mmol/L (19-24)
[2016-08-14 13:35] LABS: ABG Base Excess -4.5 mmol/L; ABG HCO3 21 mmol/L (21-25); ABG Oxygen Saturation 99.8 % (94-97); ABG PCO2 43 mmHg (35-45); ABG PH 7.31 (7.35-7.45); ABG PO2 240 mmHg (83-108); ABG TCO2 22 mmol/L (19-24)
[2016-08-14 13:36] LABS: ABG Base Excess -6.4 mmol/L; ABG HCO3 20 mmol/L (21-25); ABG Oxygen Saturation 99.1 % (94-97); ABG PCO2 47 mmHg (35-45); ABG PH 7.25 (7.35-7.45); ABG PO2 161 mmHg (83-108); ABG TCO2 21 mmol/L (19-24)
[2016-08-14 13:38] LABS: ABG Base Excess -3.2 mmol/L; ABG HCO3 22 mmol/L (21-25); ABG Oxygen Saturation 98.8 % (94-97); ABG PCO2 46 mmHg (35-45); ABG PH 7.31 (7.35-7.45); ABG PO2 138 mmHg (83-108); ABG TCO2 24 mmol/L (19-24)
[2016-08-14 13:39] LABS: ABG Base Excess -3.6 mmol/L; ABG HCO3 21 mmol/L (21-25); ABG Oxygen Saturation 99.2 % (94-97); ABG PCO2 41 mmHg (35-45); ABG PH 7.34 (7.35-7.45); ABG PO2 151 mmHg (83-108); ABG TCO2 23 mmol/L (19-24)
--- NOTE | 2016-08-14 14:19 | P.PN ---
Progress Note - Text CV Surgery Nursing Principal diagnosis: Non-ST elevation myocardial infarction. POD #19 flexible nasal fiberoptic endoscopy POD #16 non-aortic clamp off pump double coronary artery bypass grafting x2 using the left internal mammary artery to the left anterior descending artery and reverse saphenous vein graft from the aorta to the posterior descending artery. Endoscopic harvesting of the right greater saphenous vein. Intraoperative transesophageal echocardiogram and epi-aortic scanning. Intraoperative graft flow measurements using the Medistim machine. Pt had intraparenchymal hemorrhage with increase oxygen demand after surgery requiring bronchoscopy. POD #13 bronchoscopy and bronchial alveolar lavage with bronchial washings demonstrate infection with pseudomonas, placed on IV zosyn, infectious disease following. Patient awake and alert, no distress noted, patient complaining of generalized weakness. Denies complaints of pain at this time. Patient's at bedside, questions answered. Vital Signs: Afebrile Vital Signs - 24 hr 08/13/16 08/13/16 08/13/16 15:45 15:47 20:40 Temperature 97 F L 97.3 F L Pulse Rate Pulse Rate [ 100 99 Pulse Oximetery ] Respiratory 16 16 18 Rate Blood Pressure 101/55 90/35 [Right Arm] O2 Sat by Pulse 96 97 Oximetry 08/13/16 08/14/16 08/14/16 23:00 04:00 08:00 Temperature 97.5 F L 97.0 F L 96.8 F L Pulse Rate Pulse Rate [ 103 H 83 83 Pulse Oximetery ] Respiratory 18 18 16 Rate Blood Pressure 102/47 91/44 85/44 [Right Arm] O2 Sat by Pulse 97 98 96 Oximetry 08/14/16 08/14/16 12:06 12:19 Temperature Pulse Rate 80 80 Pulse Rate [ Pulse Oximetery ] Respiratory Rate Blood Pressure [Right Arm] O2 Sat by Pulse Oximetry Labs: Short CBC 08/14/16 Range/Units 06:25 WBC 13.4 H (3.8-10.6) k/uL Hgb 7.3 L (13.0-17.5) gm/dL Hct 21.6 L (39.0-53.0) % Plt Count 199 (150-450) k/uL BMP 08/14/16 06:25 Sodium 140 Potassium 4.3 Chloride 101 Carbon Dioxide 24 BUN 50 H Creatinine 5.09 H* Glucose 97 Calcium 8.7 Liver Function 08/14/16 Range/Units 06:25 Total Bilirubin 1.0 (0.2-1.3) mg/dL AST 116 H (17-59) U/L ALT 97 H (21-72) U/L Alkaline Phosphatase 104 (38-126) U/L Albumin 3.2 L (3.5-5.0) g/dL Microbiology 08/01/16 16:15 Bronchial Washings - Left Fungal Culture - Preliminary 07/31/16 05:55 Blood Blood Culture - Final No Growth after 144 hours 07/31/16 05:55 Blood Blood Culture - Final No Growth after 144 hours 08/01/16 16:15 Bronchial Washings - Left Gram Stain - Final 08/01/16 16:15 Bronchial Washings - Left Bronchial Washings Culture - Final Pseudomonas aeruginosa 08/01/16 16:15 Bronchial Washings - Left Acid Fast Bacilli Smear - Final 08/01/16 16:15 Bronchial Washings - Left Acid Fast Bacilli Culture - Preliminary 07/25/16 20:46 Urine,Voided Urine Culture - Final Lungs: Essentially clear throughout, few scattered crackles to bilateral bases. Respirations are symmetrical and unlabored. O2 sat: 96% on room air. I/S: 1500 mL, reviewed with the patient importance of using his incentive spirometry every hour while awake. Patient did give a good return demonstration on his incentive spirometry. Heart: S1S2, regular rhythm and rate, positive systolic murmur. Remote telemetry showing normal sinus rhythm heart rate 84. Sternum stable, chest incision clean and dry. Heart hugger in place. Right leg incisions clean dry and well approximated. No drainage noted. knee-high DIONI hose and sequential compression device in place right lower extremity. Left lower leg with contact cast and place. Abdomen: Soft, Positive bowel sounds present in all 4 quadrants. Positive bowel movement today. CBGs: 104-129 mg/dL in the last 24 hours. U/O: hemodialysis dependent, patient's left upper extremity AV fistula with positive bruit, positive thrill. He had hemodialysis yesterday with 2.5 L of fluid removed. 24 hr Total: Intake & Output 08/12/16 08/13/16 08/14/16 08/15/16 06:59 06:59 06:59 06:59 Intake Total 450 1110 150 Balance 450 1110 150 Weight 80.5 kg 82.5 kg 81.5 kg Active Medications Hydrocodone Bitart/Acetaminophen ([place] 5-325) 2 each PO Q4HR PRN PRN Reason: Severe Pain Last Admin: 08/14/16 10:44 Dose: 2 each Hydrocodone Bitart/Acetaminophen ([place] 5-325) 1 each PO Q4HR PRN PRN Reason: Moderate Pain Last Admin: 08/12/16 06:45 Dose: 1 each Albuterol/Ipratropium (Duoneb 0.5 Mg-3 Mg/3 Ml Soln) 3 ml INHALATION RT-Q2H PRN PRN Reason: Shortness Of Breath Or Wheezing Albuterol/Ipratropium (Duoneb 0.5 Mg-3 Mg/3 Ml Soln) 3 ml INHALATION RT-QID [facility] Last Admin: 08/14/16 12:05 Dose: 3 ml Allopurinol (Zyloprim) 100 mg PO DAILY [facility] Last Admin: 08/14/16 08:27 Dose: 100 mg Amiodarone HCl (Cordarone) 200 mg PO BID [facility] Last Admin: 08/14/16 08:27 Dose: Not Given Aspirin (Aspirin) 81 mg PO DAILY [facility] Last Admin: 08/14/16 08:27 Dose: 81 mg Benzocaine/Menthol (Cepacol Lozenge) 1 each MUCOUS MEM Q2H PRN PRN Reason: Sore Throat Bisacodyl (Dulcolax) 10 mg RECTAL DAILY PRN PRN Reason: Constipation Calcium Acetate (Phoslo) 667 mg PO TID-W/MEALS [facility] Last Admin: 08/14/16 12:50 Dose: 667 mg Darbepoetin Kevin (Aranesp) 40 mcg SQ Q7D [facility] Last Admin: 08/08/16 17:24 Dose: 40 mcg Diphenoxylate HCl/Atropine (Lomotil Oral Soln) 2.5 ml PO QID PRN PRN Reason: Diarrhea Last Admin: 08/12/16 10:39 Dose: 2.5 ml Folic Acid (Folic Acid) 1 mg PO DAILY@1200 [facility] Last Admin: 08/14/16 12:51 Dose: 1 mg Heparin Sodium (Porcine) (Heparin) 5,000 unit SQ Q8HR [facility] Last Admin: 08/14/16 08:27 Dose: 5,000 unit Hydralazine HCl (Apresoline) 10 mg IVP Q6HR PRN PRN Reason: Blood Pressure - High Last Admin: 08/06/16 10:27 Dose: 10 mg Insulin Human Lispro (Humalog) 0 unit SQ ACHS [facility] PRN Reason: Protocol Last Admin: 08/14/16 12:46 Dose: Not Given Lisinopril (Zestril) 10 mg PO DAILY@1200 [facility] Magnesium Hydroxide (Milk Of Magnesia) 2,400 mg PO BID PRN PRN Reason: Constipation Metoclopramide HCl (Reglan) 10 mg IVP Q4H PRN PRN Reason: Nausea And Vomiting Metoprolol Tartrate (Lopressor) 25 mg PO BID [facility] Last Admin: 08/14/16 08:27 Dose: Not Given Midodrine (Proamatine) 10 mg PO AC-TID [facility] Last Admin: 08/14/16 12:51 Dose: Not Given Miscellaneous Information (Magnesium Per Protocol) 1 each MISCELLANE DAILY PRN ; Protocol PRN Reason: Per Protocol Miscellaneous Information (Phosphorus Per Protocol) 1 each MISCELLANE DAILY PRN ; Protocol PRN Reason: Per Protocol Miscellaneous Information (Potassium Per Protocol) 1 each MISCELLANE DAILY PRN ; Protocol PRN Reason: Per Protocol Multivitamins (Theragran) 1 each PO DAILY@1200 [facility] Last Admin: 08/14/16 12:51 Dose: 1 each Nystatin (Mycostatin Oral Susp) 500,000 unit PO QID [facility] Last Admin: 08/14/16 12:51 Dose: 500,000 unit Ondansetron HCl (Zofran) 4 mg IVP Q6HR PRN PRN Reason: Nausea And Vomiting Pantoprazole Sodium (Protonix) 40 mg PO AC-BRKFST [facility] Last Admin: 08/14/16 06:47 Dose: 40 mg Prednisone () 5 mg PO DAILY [facility] Last Admin: 08/14/16 08:27 Dose: 5 mg Senna/Docusate Sodium (Senokot-S) 2 each PO HS [facility] Last Admin: 08/13/16 20:59 Dose: Not Given Sodium Chloride (Saline Flush) 10 ml IV BID [facility] Last Admin: 08/14/16 08:50 Dose: Not Given Sodium Chloride (Saline Flush) 20 ml IV Q4HR PRN PRN Reason: PICC Line Sodium Chloride (Saline Flush) 10 ml IV WEEKLY [facility] Last Admin: 08/13/16 21:00 Dose: 10 ml Sodium Chloride (Saline Flush) 10 ml IV Q4HR PRN PRN Reason: PICC Line Sodium Chloride (Saline Flush) 10 ml IV Q12HR [facility] Last Admin: 08/14/16 08:51 Dose: Not Given Thiamine HCl (Vitamin B-1) 100 mg PO DAILY@1200 [facility] Last Admin: 08/14/16 12:51 Dose: 100 mg Plan: 1. Continue aspirin, Lipitor, heparin SQ, lisinopril, lopressor and amiodarone. 2. nephrology on board for hemodialysis management. 2.5 L of fluid removed yesterday. 3. PT/OT to work with patient, out of bed to chair 3 times a day as tolerated. 4. Dr. Gordon from infectious disease is following. Antibiotics will be discontinued. 5. Encourage incentive spirometry use every hour while awake. 6. Will continue to monitor labs, chest x-rays. 7. Insulin management per primary service. 8. GI/DVT prophylaxis. 9. The patient will be transported to the wound care center here within the hospital for replacement of his left leg contact cast. 10. Dr. Lucas for pulmonary management. 11. Antibiotics discontinued yesterday per Dr. Gordon recommendations ( infectious disease). 11. Hemoglobin 7.3 today, hypotensive episode. One unit of PRBCs will be transfused. 12. Case management/social work on for discharge planning. Will need to be evaluated for discharge to rehab [facility] as he did not qualify for [facility] for long-term acute care needs.
--- NOTE | 2016-08-14 15:31 | P.PN ---
Subjective Principal diagnosis: Status post CABG This is a 80-year-old gentleman who is status post coronary artery bypass grafting surgery. Postoperative course was complicated by intraoperative bleeding requiring bronchoscopy and prolonged ventilation. He is currently extubated and is being followed on the telemetry unit. He was sitting up in the chair at the time of our examination today. Overall his appetite is improving. He seems to be getting stronger. Arrangements are currently being made for the patient to be transferred to [facility] rehab, possibly today. Blood pressure today 81/30 during dialysis. Arrangements being made for rehab which will take place tomorrow. Objective - Vital Signs Vital signs: Vital Signs Temp 96.7 F L 08/14/16 12:00 Pulse 80 08/14/16 12:19 Resp 16 08/14/16 12:00 BP 81/32 08/14/16 12:00 Pulse Ox 96 08/14/16 12:00 Intake & Output 08/13/16 08/14/16 08/14/16 18:59 06:59 18:59 Intake Total 150 Balance 150 Weight 81.5 kg Intake: Oral 150 Other: Voiding Method Diaper Diaper Diaper # Bowel Movements 1 1 ABP, PAP, CO, CI - Last Documented Arterial Blood Pressure 156/51 Pulmonary Artery Pressure 40/30 Cardiac Output 6.4 Cardiac Index 3.3 - Exam PHYSICAL EXAMINATION: HEENT: Head is atraumatic, normocephalic. Pupils equal, round. Neck is supple. There is no elevated jugular venous pressure. HEART EXAMINATION: Heart S1, S2 normal. No murmur or gallop heard. CHEST EXAMINATION: Lungs are clear with mild diminished air entry to posterior bases. ABDOMEN: Soft, nontender. Bowel sounds are heard. No organomegaly noted. EXTREMITIES: 2+ peripheral pulses with no evidence of peripheral edema and no calf tenderness noted. NEUROLOGIC patient is awake, alert and oriented -3. . - Labs CBC & Chem 7: 08/14/16 06:25 08/14/16 06:25 Labs: Abnormal Lab Results - Last 24 Hours (Table) 07/29/16 07/29/16 07/29/16 Range/Units 08:42 08:48 08:51 WBC (3.8-10.6) k/uL RBC (4.30-5.90) m/uL Hgb (13.0-17.5) gm/dL Hct (39.0-53.0) % RDW (11.5-15.5) % ABG pH (7.35-7.45) ABG pCO2 33 L (35-45) mmHg ABG pO2 221 H 292 H 272 H (83-108) mmHg ABG HCO3 (21-25) mmol/L ABG O2 Saturation 99.8 H 99.9 H 99.9 H (94-97) % ABG Hematocrit 12 L* 12 L* 18 L* (34.0-46.0) % ABG Sodium (135-146) mmol/L ABG Potassium (3.4-4.5) mmol/L BUN (9-20) mg/dL Creatinine (0.66-1.25) mg/dL POC Glucose (mg/dL) (75-99) mg/dL AST (17-59) U/L ALT (21-72) U/L Albumin (3.5-5.0) g/dL Arterial Blood Potassium (3.4-4.5) mmol/L 07/29/16 07/29/16 07/29/16 Range/Units 10:06 10:34 11:09 WBC (3.8-10.6) k/uL RBC (4.30-5.90) m/uL Hgb (13.0-17.5) gm/dL Hct (39.0-53.0) % RDW (11.5-15.5) % ABG pH 7.31 L (7.35-7.45) ABG pCO2 46 H (35-45) mmHg ABG pO2 322 H 237 H 244 H (83-108) mmHg ABG HCO3 (21-25) mmol/L ABG O2 Saturation 99.9 H 99.8 H 99.8 H (94-97) % ABG Hematocrit 23 L 24 L 25 L (34.0-46.0) % ABG Sodium (135-146) mmol/L ABG Potassium 4.6 H (3.4-4.5) mmol/L BUN (9-20) mg/dL Creatinine (0.66-1.25) mg/dL POC Glucose (mg/dL) (75-99) mg/dL AST (17-59) U/L ALT (21-72) U/L Albumin (3.5-5.0) g/dL Arterial Blood Potassium 4.6 H (3.4-4.5) mmol/L 07/29/16 07/29/16 07/29/16 Range/Units 11:26 11:52 12:38 WBC (3.8-10.6) k/uL RBC (4.30-5.90) m/uL Hgb (13.0-17.5) gm/dL Hct (39.0-53.0) % RDW (11.5-15.5) % ABG pH 7.34 L 7.31 L 7.25 L (7.35-7.45) ABG pCO2 47 H (35-45) mmHg ABG pO2 222 H 240 H 161 H (83-108) mmHg ABG HCO3 20 L (21-25) mmol/L ABG O2 Saturation 99.7 H 99.8 H 99.1 H (94-97) % ABG Hematocrit 24 L 22 L 19 L* (34.0-46.0) % ABG Sodium (135-146) mmol/L ABG Potassium 4.7 H 4.7 H (3.4-4.5) mmol/L BUN (9-20) mg/dL Creatinine (0.66-1.25) mg/dL POC Glucose (mg/dL) (75-99) mg/dL AST (17-59) U/L ALT (21-72) U/L Albumin (3.5-5.0) g/dL Arterial Blood Potassium 4.7 H 4.7 H (3.4-4.5) mmol/L 07/29/16 07/29/16 08/13/16 Range/Units 12:59 13:22 16:52 WBC (3.8-10.6) k/uL RBC (4.30-5.90) m/uL Hgb (13.0-17.5) gm/dL Hct (39.0-53.0) % RDW (11.5-15.5) % ABG pH 7.31 L 7.34 L (7.35-7.45) ABG pCO2 46 H (35-45) mmHg ABG pO2 138 H 151 H (83-108) mmHg ABG HCO3 (21-25) mmol/L ABG O2 Saturation 98.8 H 99.2 H (94-97) % ABG Hematocrit 18 L* 18 L* (34.0-46.0) % ABG Sodium 147 H (135-146) mmol/L ABG Potassium (3.4-4.5) mmol/L BUN (9-20) mg/dL Creatinine (0.66-1.25) mg/dL POC Glucose (mg/dL) 116 H (75-99) mg/dL AST (17-59) U/L ALT (21-72) U/L Albumin (3.5-5.0) g/dL Arterial Blood Potassium (3.4-4.5) mmol/L 08/13/16 08/14/16 08/14/16 Range/Units 20:41 02:58 06:25 WBC 13.4 H (3.8-10.6) k/uL RBC 2.29 L (4.30-5.90) m/uL Hgb 7.3 L (13.0-17.5) gm/dL Hct 21.6 L (39.0-53.0) % RDW 19.8 H (11.5-15.5) % ABG pH (7.35-7.45) ABG pCO2 (35-45) mmHg ABG pO2 (83-108) mmHg ABG HCO3 (21-25) mmol/L ABG O2 Saturation (94-97) % ABG Hematocrit (34.0-46.0) % ABG Sodium (135-146) mmol/L ABG Potassium (3.4-4.5) mmol/L BUN (9-20) mg/dL Creatinine (0.66-1.25) mg/dL POC Glucose (mg/dL) 129 H 120 H (75-99) mg/dL AST (17-59) U/L ALT (21-72) U/L Albumin (3.5-5.0) g/dL Arterial Blood Potassium (3.4-4.5) mmol/L 08/14/16 08/14/16 08/14/16 Range/Units 06:25 06:45 11:46 WBC (3.8-10.6) k/uL RBC (4.30-5.90) m/uL Hgb (13.0-17.5) gm/dL Hct (39.0-53.0) % RDW (11.5-15.5) % ABG pH (7.35-7.45) ABG pCO2 (35-45) mmHg ABG pO2 (83-108) mmHg ABG HCO3 (21-25) mmol/L ABG O2 Saturation (94-97) % ABG Hematocrit (34.0-46.0) % ABG Sodium (135-146) mmol/L ABG Potassium (3.4-4.5) mmol/L BUN 50 H (9-20) mg/dL Creatinine 5.09 H* (0.66-1.25) mg/dL POC Glucose (mg/dL) 106 H 142 H (75-99) mg/dL AST 116 H (17-59) U/L ALT 97 H (21-72) U/L Albumin 3.2 L (3.5-5.0) g/dL Arterial Blood Potassium (3.4-4.5) mmol/L Assessment and Plan (1) End-stage renal disease on hemodialysis Status: Acute (2) Hyperlipidemia Status: Acute (3) Hypertension Status: Acute (4) Non-STEMI (non-ST elevated myocardial infarction) Status: Acute (5) Status post aorto-coronary artery bypass graft Status: Acute (6) Diabetic foot ulcer associated with type 2 diabetes mellitus Status: Acute Plan: From cardiology's perspective, we will recommend to continue the patient on his current medications. Arrangements are being made for the patient to potentially transfer over to [facility] rehab today or tomorrow. DNP note has been reviewed, I agree with a documented findings and plan of care. Patient was seen and examined.
[2016-08-14 17:13] LABS: Glucose,Whole Blood 147 mg/dL (75-99)
--- NOTE | 2016-08-14 17:59 | P.PN ---
Subjective Principal diagnosis: Status post CABG, postoperative day #7 This is a 80-year-old white male with history of multiple medical problems including hypertension, previous ischemic heart disease and mild aortic stenosis. End-stage renal disease on hemodialysis. History of rheumatoid arthritis, patient was admitted recently with chest pain, cardiac enzymes were suggestive of non-ST elevation myocardial infarction, cardiac cath showed significant coronary artery disease with critical lesion in the proximal LAD also the proximal RCA. Today, the patient underwent myocardial revascularization by Dr. Alcaraz, and he was placed on mechanical ventilation postoperatively, seen in the ICU for consultation and postoperative ventilator management. Presently, the patient is on 100% FiO2, assist control rate of 12, PEEP of 5, and tidal volume of 500. Initial ABG showed a pO2 of 364, pCO2 of 42 pH of 7.32. However shortly after patient was placed on a 50% FiO2, and he was noted to have significant drop in his saturation based on pulse oximetry. Repeat ABG showed worsening oxygenation with a pO2 of 46 pCO2 of 50 and pH of 7.28. Hence placed back on 100%, increased his rate up to 16, and increased the PEEP to 10. Follow-up chest x-ray showed worsening pulmonary edema, remind you patient is a hemodialysis patient. Follow-up ABG is pending. Patient is presently fully sedated, and in no distress. Reevaluated today on 07/30/2016, patient is status post off pump double coronary artery bypass grafting using L REJI to LAD, and reverse saphenous vein graft from the aorta to the posterior descending artery.patient remains on mechanical ventilation, chest x-ray is showing worsening picture of pulmonary edema, however the possibility of bleeding into the left midlung area and left lower lobe is not entirely ruled out there seems to be a worsening consolidation in the area of the left midlung and left lower lobe, hence may consider bronchoscopy on this patient. In the meantime, patient is being ultrafiltrate it today, and hopefully that will make a significant improvement on the chest x- ray appearance, and may help oxygenation.labs were reviewed, WBC count is 9.8 hemoglobin is 7.6 it was 6.5 earlier today,patient received a total of 5 units of packed RBCs since admission, 2 units of fresh frozen plasma, and 3 units of platelets. Reevaluated today on 07/31/2016, patient underwent another bronchoscopy today although his chest x-ray was showing some improvement compared to the chest x- ray yesterday after bronchoscopy. There was evidence of more aeration of the left upper lobe and lingula on the chest x-ray today. Today I was able to clear plugs from the left lower lobe bronchus, and from the lingular bronchus. Throughout the procedure there was some oozing of blood, and the mucosa of the bronchial tube was noted to be very fragile and bled easily. No biopsies were done. But suctioning and lavages of the left lower lobe and lingula was performed. In the meantime the patient remains on mechanical ventilations, today I increased his tidal volume up to 550 kept him on assist control rate of 16 I increased the flow rates up to 70, and FiO2 will be titrated down from 100 % during the bronchoscopy to as low as 50% as tolerated, and PEEP remains at 10 for the time being. Labs were reviewed, hemoglobin is 7.9 platelets are 114. Electrolytes were reviewed BUN is 31 creatinine is 4.29. On 08/01/2016, patient remains on mechanical ventilation, we were able earlier today to cut down the FiO2 to 50%, and PEEP was down to as low as 5%. However as the hemodialysis was started, patient began to desaturate, hence went back to a PEEP of 8. And increase his FiO2 to 55%. Patient is now undergoing hemodialysis, his chest x-ray is showing definite improvement, hence no need for bronchoscopy and evaluation of the left lung today. Still suctioning some bloody secretions from the endotracheal tube by respiratory. Labs were reviewed , hemoglobin is 7.3 today. Platelets are 101, INR is 1.1 electrolytes and renal profile were reviewed BUN is 24 creatinine is 3.24. Elevation of the left lung is definitely improved, small bilateral pleural effusions were noted On 08/02/2016, patient was reevaluated. I had to bronchoscope the patient late in the afternoon yesterday because of worsening chest x-ray and the patient continued to desaturate intermittently requiring increasing the FiO2 to 100%. Lavage was done of the left lower lobe lingula and left upper lobe, patient was placed on Decadron, cultures from the previous bronchoscopy came back positive for Pseudomonas, hence I started the patient today on Zosyn, and the patient is being followed by infectious disease on consultation. Patient remains on mechanical ventilation today, he is on a 50% and PEEP of 8 ABG showed a pO2 of 85 pCO2 of 33 pH of 7.48. Chest x-ray is showing better aeration of the left upper lobe lingula and left lower lobe, continues to have some atelectasis in the left lower lobe itself. It is not going to be dialyzed today, but will be dialyzed in a.m. BUN is 23 creatinine is 2.80 patient remains sedated on mechanical ventilation, however we plan to discontinue propofol briefly, assess his mental status today, and again he is not quite ready for extubation and weaning at this point. But this will definitely be addressed again tomorrow assuming his chest x-ray continues to show improvement. Reevaluated today on 08/03/2016, remains on mechanical ventilation, chest x-ray is showing definite improvement in the aeration of the left lung, patient will not eat to be bronchoscope today. However I do plan to consider a weaning trial on this patient today after hemodialysis. If tolerated may even proceeded to extubating the patient. ABG this morning showed a pO2 of 113 pCO2 of 29 pH of 7.50 hence I cut down the rate to 12, I also cut down the PEEP from 10-5. CBC showed hemoglobin of 7.1, I will leave it up to the surgeons to decide whether the patient needs to be transfused at this point. This may be done at the time of his dialysis. Electrolytes were reviewed BUN is 47 creatinine is 3.40. Chest x-ray as noted above. Reevaluated on 08/04/2016, remains on mechanical ventilation, chest x-ray today is showing slight worsening, I suspect there is some interstitial edema, and possibly minimal left lower lobe atelectasis or pneumonia involving the left lower lobe. ABG showed a pO2 of 123 pCO2 of 34 pH of 7.44 patient is presently on a PEEP of 5 and FiO2 of 50%. He has been off propofol for quite some time overnight, and I was hoping to assess his mental status today and likely extubated. However the patient remains lethargic off propofol, and considering the worsening of the chest x-ray, will likely have the patient dialyzed today, and address weaning again either later today or in a.m. We'll cut down the dose of Decadron, WBC count is down to 16.1 hemoglobin is 9.0 today The patient was seen again today in follow-up 08/05/2016. He was extubated approximately 5 PM yesterday and was maintained on 5 L/m per nasal cannula. This morning his saturations were 89-90%. He was seen by Dr. Alcaraz who placed the patient on BiPAP at 12/6 and 50%. Current blood gases reveal a pO2 of 87, pCO2 37, pH 7.45. A mild respiratory alkalosis. He is currently off sedation he has not received any pain medication or other forms of sedation. He is still quite difficult to arouse. He does open his eyes to verbal stimuli and he is moving all fours. He is maintaining good O2 saturations on 50%. He has a 0.9 normal saline at [facility]. He did receive dialysis again today with the plans to remove 4 L. His current creatinine is 3.20, BUN 56, hemoglobin 8.8 The bronchial wash did reveal pseudomonas aeruginosa. He is currently on Zosyn. Progress note dated 08/06/2016 This is a 80-year-old male who was extubated a couple days ago. I believe [id number].The patient has primarily been on BiPAP dependent since that time.Thepatient'oYqRSEija[id number]%. HisIVis0.5pr95vGrpjjyh.He is getting vital high protein at 30 with a goal of 30.KqiziszqbyczxhcuerhmcllohtbcbtmoRknpk13xfc1.7Loffluidwasremoved.Hischestx- raysimproved.Heisapparentlygoingtohavehemodialysisagaintoday.I' mnotsurewhattheplanisfor.Hedidnothavebloodgasestoday. HeremainsonZosynforthePseudomonasrecoveredhisbronchialwash.AgainasImentionhische stx - raysimproved.Wearegoingtotryhimonsomenasalprongstoday.Helookslikehemightbeableto tolerateit. Progress note dated 08/07/2016 This is a 80-year-old male who was extubated on Friday evening. The patient is doing relatively well although for the first couple of days post extubation, he was BiPAP dependent. Yesterday we were able to transition him to nasal cannula. He is doing well. Did not need BiPAP all of last night. He is much more awake and alert. He is scheduled for hemodialysis. He's had hemodialysis last 2 days. Again he is much more awake and alert. Currently he is on O2 at 2 L. Not requiring BiPAP. He is getting appointment 9 IV at 20 mL an hour he is going to get hemodialysis today. Other than that things are going reasonably well but I think this patient should stay in the ICU for at least another day or so. The patient is seen again today 08/08/2016 in follow-up in the intensive care unit. He is currently awake and alert in no acute distress. He did have another 2-1/2 L removed per hemodialysis last evening. He is currently maintaining O2 saturation in the low 90s on 4 L/m per nasal cannula. He has a 0.9 at KVO via a PICC line. Today's chest x-ray reveals a right lower lobe infiltrate/effusion which is stable. He denies any worsening shortness of breath, cough or congestion. His bronchial wash findings from 08/01/2016 did reveal pseudomonas aeruginosa. He remains on bronchodilators and Zosyn. White count 11.4. Current BUN 52, creatinine 3.10. The patient is seen again today 08/12/2016 in follow-up on the selective care unit. He is awake and alert in no acute distress. He has remained quite weak and debilitated. He does deny any worsening shortness of breath, cough or congestion. He is maintaining good O2 saturations in the upper 90s on room air. He has been hemodynamically stable. The patient was seen again today 08/13/2016 in follow-up on the selective care unit. He is more awake and alert today as compared to yesterday. He is getting somewhat stronger. His chest x-ray continues to show stable bilateral tiny pleural effusions and subsegmental consolidation at the bases. He is maintaining good O2 saturations in the upper 90s on room air. He is attempting to work well with the incentive spirometer but needs continued encouragement. The patient is seen again today 08/14/2016 in follow-up on the selective care unit. He remains awake and alert in no acute distress. He is getting stronger by the day. He does require physical therapy and significant assistance to be up out of bed. He currently denies any shortness of breath, cough or congestion. He is maintaining good O2 saturations in the mid 90s on room air. His been afebrile. Objective - Vital Signs Vital signs: Vital Signs Temp 97.9 F 08/14/16 17:46 Pulse 79 08/14/16 17:46 Resp 18 08/14/16 17:46 BP 89/44 08/14/16 17:46 Pulse Ox 99 08/14/16 16:51 Intake & Output 08/13/16 08/14/16 08/14/16 18:59 06:59 18:59 Intake Total 150 0 Balance 150 0 Weight 81.5 kg Intake: Oral 150 Blood Product 0 Rc As-1 Unit 0 [id number] Other: Voiding Method Diaper Diaper Diaper # Bowel Movements 1 1 ABP, PAP, CO, CI - Last Documented Arterial Blood Pressure 156/51 Pulmonary Artery Pressure 40/30 Cardiac Output 6.4 Cardiac Index 3.3 - Exam GENERAL EXAM: Awake, alert in no acute distress. HEAD: Normocephalic. EYES: Risk reaction of pupils, equal size. NOSE: Clear with pink turbinates. THROAT: No erythema or exudates. NECK: No masses, no JVD. CHEST: No chest wall deformity. LUNGS: Equal air entry with crackles in the posterior bases. CVS: S1 and S2 normal with no audible murmurs, regular rhythm. ABDOMEN: No hepatosplenomegaly, normal bowel sounds. SPINE: No scoliosis or deformity SKIN: No rashes Extremities: There is trace peripheral edema. No clubbing, no cyanosis. Peripheral pulses are intact. - Labs CBC & Chem 7: 08/14/16 06:25 08/14/16 06:25 Labs: Abnormal Lab Results - Last 24 Hours (Table) 07/29/16 07/29/16 07/29/16 Range/Units 08:42 08:48 08:51 WBC (3.8-10.6) k/uL RBC (4.30-5.90) m/uL Hgb (13.0-17.5) gm/dL Hct (39.0-53.0) % RDW (11.5-15.5) % ABG pH (7.35-7.45) ABG pCO2 33 L (35-45) mmHg ABG pO2 221 H 292 H 272 H (83-108) mmHg ABG HCO3 (21-25) mmol/L ABG O2 Saturation 99.8 H 99.9 H 99.9 H (94-97) % ABG Hematocrit 12 L* 12 L* 18 L* (34.0-46.0) % ABG Sodium (135-146) mmol/L ABG Potassium (3.4-4.5) mmol/L BUN (9-20) mg/dL Creatinine (0.66-1.25) mg/dL POC Glucose (mg/dL) (75-99) mg/dL AST (17-59) U/L ALT (21-72) U/L Albumin (3.5-5.0) g/dL Arterial Blood Potassium (3.4-4.5) mmol/L Crossmatch 07/29/16 07/29/16 07/29/16 Range/Units 10:06 10:34 11:09 WBC (3.8-10.6) k/uL RBC (4.30-5.90) m/uL Hgb (13.0-17.5) gm/dL Hct (39.0-53.0) % RDW (11.5-15.5) % ABG pH 7.31 L (7.35-7.45) ABG pCO2 46 H (35-45) mmHg ABG pO2 322 H 237 H 244 H (83-108) mmHg ABG HCO3 (21-25) mmol/L ABG O2 Saturation 99.9 H 99.8 H 99.8 H (94-97) % ABG Hematocrit 23 L 24 L 25 L (34.0-46.0) % ABG Sodium (135-146) mmol/L ABG Potassium 4.6 H (3.4-4.5) mmol/L BUN (9-20) mg/dL Creatinine (0.66-1.25) mg/dL POC Glucose (mg/dL) (75-99) mg/dL AST (17-59) U/L ALT (21-72) U/L Albumin (3.5-5.0) g/dL Arterial Blood Potassium 4.6 H (3.4-4.5) mmol/L Crossmatch 07/29/16 07/29/16 07/29/16 Range/Units 11:26 11:52 12:38 WBC (3.8-10.6) k/uL RBC (4.30-5.90) m/uL Hgb (13.0-17.5) gm/dL Hct (39.0-53.0) % RDW (11.5-15.5) % ABG pH 7.34 L 7.31 L 7.25 L (7.35-7.45) ABG pCO2 47 H (35-45) mmHg ABG pO2 222 H 240 H 161 H (83-108) mmHg ABG HCO3 20 L (21-25) mmol/L ABG O2 Saturation 99.7 H 99.8 H 99.1 H (94-97) % ABG Hematocrit 24 L 22 L 19 L* (34.0-46.0) % ABG Sodium (135-146) mmol/L ABG Potassium 4.7 H 4.7 H (3.4-4.5) mmol/L BUN (9-20) mg/dL Creatinine (0.66-1.25) mg/dL POC Glucose (mg/dL) (75-99) mg/dL AST (17-59) U/L ALT (21-72) U/L Albumin (3.5-5.0) g/dL Arterial Blood Potassium 4.7 H 4.7 H (3.4-4.5) mmol/L Crossmatch 07/29/16 07/29/16 08/13/16 Range/Units 12:59 13:22 20:41 WBC (3.8-10.6) k/uL RBC (4.30-5.90) m/uL Hgb (13.0-17.5) gm/dL Hct (39.0-53.0) % RDW (11.5-15.5) % ABG pH 7.31 L 7.34 L (7.35-7.45) ABG pCO2 46 H (35-45) mmHg ABG pO2 138 H 151 H (83-108) mmHg ABG HCO3 (21-25) mmol/L ABG O2 Saturation 98.8 H 99.2 H (94-97) % ABG Hematocrit 18 L* 18 L* (34.0-46.0) % ABG Sodium 147 H (135-146) mmol/L ABG Potassium (3.4-4.5) mmol/L BUN (9-20) mg/dL Creatinine (0.66-1.25) mg/dL POC Glucose (mg/dL) 129 H (75-99) mg/dL AST (17-59) U/L ALT (21-72) U/L Albumin (3.5-5.0) g/dL Arterial Blood Potassium (3.4-4.5) mmol/L Crossmatch 08/14/16 08/14/16 08/14/16 Range/Units 02:58 06:25 06:25 WBC 13.4 H (3.8-10.6) k/uL RBC 2.29 L (4.30-5.90) m/uL Hgb 7.3 L (13.0-17.5) gm/dL Hct 21.6 L (39.0-53.0) % RDW 19.8 H (11.5-15.5) % ABG pH (7.35-7.45) ABG pCO2 (35-45) mmHg ABG pO2 (83-108) mmHg ABG HCO3 (21-25) mmol/L ABG O2 Saturation (94-97) % ABG Hematocrit (34.0-46.0) % ABG Sodium (135-146) mmol/L ABG Potassium (3.4-4.5) mmol/L BUN 50 H (9-20) mg/dL Creatinine 5.09 H* (0.66-1.25) mg/dL POC Glucose (mg/dL) 120 H (75-99) mg/dL AST 116 H (17-59) U/L ALT 97 H (21-72) U/L Albumin 3.2 L (3.5-5.0) g/dL Arterial Blood Potassium (3.4-4.5) mmol/L Crossmatch 08/14/16 08/14/16 08/14/16 Range/Units 06:45 11:46 11:48 WBC (3.8-10.6) k/uL RBC (4.30-5.90) m/uL Hgb (13.0-17.5) gm/dL Hct (39.0-53.0) % RDW (11.5-15.5) % ABG pH (7.35-7.45) ABG pCO2 (35-45) mmHg ABG pO2 (83-108) mmHg ABG HCO3 (21-25) mmol/L ABG O2 Saturation (94-97) % ABG Hematocrit (34.0-46.0) % ABG Sodium (135-146) mmol/L ABG Potassium (3.4-4.5) mmol/L BUN (9-20) mg/dL Creatinine (0.66-1.25) mg/dL POC Glucose (mg/dL) 106 H 142 H (75-99) mg/dL AST (17-59) U/L ALT (21-72) U/L Albumin (3.5-5.0) g/dL Arterial Blood Potassium (3.4-4.5) mmol/L Crossmatch See Detail 08/14/16 Range/Units 16:37 WBC (3.8-10.6) k/uL RBC (4.30-5.90) m/uL Hgb (13.0-17.5) gm/dL Hct (39.0-53.0) % RDW (11.5-15.5) % ABG pH (7.35-7.45) ABG pCO2 (35-45) mmHg ABG pO2 (83-108) mmHg ABG HCO3 (21-25) mmol/L ABG O2 Saturation (94-97) % ABG Hematocrit (34.0-46.0) % ABG Sodium (135-146) mmol/L ABG Potassium (3.4-4.5) mmol/L BUN (9-20) mg/dL Creatinine (0.66-1.25) mg/dL POC Glucose (mg/dL) 147 H (75-99) mg/dL AST (17-59) U/L ALT (21-72) U/L Albumin (3.5-5.0) g/dL Arterial Blood Potassium (3.4-4.5) mmol/L Crossmatch Assessment and Plan Plan: Plan: Impression: 1 status post CABG 2 acute pulmonary edema as noted on the chest x-ray, recovered. Nose: The 3 history of mild aortic stenosis 4 history of mild LV dysfunction 5 history of chronic anemia 6 history of chronic renal failure on hemodialysis Friday schedule 7 history of hypertension 8 history of hyperlipidemia 9 history of right groin pseudoaneurysm following cardiac catheterization. 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 13 acute ventilator associated pneumonia is strongly suspected, patient has Pseudomonas in his bronchial washing from the left lower lobe, hence will continue Zosyn Plan: The patient was seen and evaluated by Dr. Lucas. He continues to maintain O2 saturations in the mid to upper 90s on room air. No pulmonary complaints. He does remain quite weak and debilitated. The plan is for transfer to an extended care facility for continued inpatient rehabilitation in the next day or so. Physical therapy is working with the patient. We'll continue with his current pulmonary medications. We'll continue to increase his activity as tolerated. We'll continue to follow.
[2016-08-14 21:20] LABS: Glucose,Whole Blood 128 mg/dL (75-99)
[2016-08-14] MEDS: SENNOSIDES-DOCUSATE SODIUM 1 EACH TAB PO SCH (22:00)
--- NOTE | 2016-08-14 22:17 | P.PN ---
Subjective Principal diagnosis: cough This is a 80-year-old male known to infectious disease service as he has been treated for infection to his shunt on his left arm before as well as ulceration to his left heel. Patient states that he presented to [facility] because he was initially having epistaxis. This was on Friday. The bleeding was controlled and he was discharged home. He then returned on Friday as he woke up in the morning at 2 AM with a cough and shortness of breath that had been going on but continued to worsen. 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 He has been evaluated by cardiothoracic surgery and is scheduled for CABG on June 28. Patient does have history of end-stage renal disease on hemodialysis Friday and Friday and is followed by Dr. Fernandez. He denies any problems with his dialysis AV fistula in his left arm. [facility] under the care of Dr. Carey. He has a total contact cast to the left lower extremity . Regarding his epistaxis, patient was seen by Dr. Chen on underwent flexible nasal endoscopy finding a right anterior septal ulcer. Dr. Lucas is following from pulmonary medicine. Upon review of his previous wound cultures, he does have history of MRSA. Patient does have history of rheumatoid arthritis on prednisone only. 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 He has been evaluated by interventional radiology and repairs been performed. He is doing well and folow up shows resolution of the pseudoaneurysm The cardiothoracic surgeries occurred. He did well ,but had some bleeding into his lungs. A bronchoscopy was done to remove blood clots. Cultures reveal evidence pseudomonas aeruginosa from the BAL. Antibiotic therapy with Zosyn was begun. AP and fungal cultures are negative. Patient is improved out of the intensive care unit. Patient complains of some discomfort of buttocks, not new but worse now sitting in chair. Overall he is feeling better today. Eating much better. Having no other new complaints. He did have some diarrhea that has resolved. Metronidazole was discontinued Objective - Vital Signs Vital signs: Vital Signs Temp 97.9 F 08/14/16 17:46 Pulse 79 08/14/16 17:46 Resp 18 08/14/16 17:46 BP 89/44 08/14/16 17:46 Pulse Ox 93 L 08/14/16 21:31 Intake & Output 08/14/16 08/14/16 08/15/16 06:59 18:59 06:59 Intake Total 150 310 Balance 150 310 Weight 81.5 kg Intake: Oral 150 Blood Product 310 Rc As-1 Unit 310 [id number] Other: Voiding Method Diaper Diaper # Bowel Movements 1 ABP, PAP, CO, CI - Last Documented Arterial Blood Pressure 156/51 Pulmonary Artery Pressure 40/30 Cardiac Output 6.4 Cardiac Index 3.3 - Exam Gen: This is a 80-year-old male. On selective care. Extubated. Sitting upright. Able to communicate. HEENT: Head is atraumatic, normocephalic. Pupils equal, round. Sclerae is anicteric. Conjunctiva pink. Mucous members of the mouth are moist. No thrush noted. NECK: Supple. No JVD. No lymphadenopathy. No thyromegaly. LUNGS: Coarse crackles throughout the lung cotto HEART: Regular rate and rhythm. No murmur. ABDOMEN: Soft. Bowel sounds are present. No masses. No tenderness. EXTREMITIES: Total contact cast is back in place in the left leg. The right leg is without significant edema, pseudoaneurysm site to the right leg continues to heal and the ecchymosis is improving Skin: With the aids present the patient is started. There is evidence of some minimal erythema to the buttocks. No open ulcerations are seen in the buttocks or the coccyx. He is producing some stool that is thickened pasty in nature. There is no kris diarrhea. Dialysis graft of the left arm is intact.Difficulty with a skin tear NEUROLOGICAL: Sitting upright. A little more strength apparently was able to stand momentarily with a 2 person assist - Labs CBC & Chem 7: 08/14/16 06:25 08/14/16 06:25 Labs: Abnormal Lab Results - Last 24 Hours (Table) 07/29/16 07/29/16 07/29/16 Range/Units 08:42 08:48 08:51 WBC (3.8-10.6) k/uL RBC (4.30-5.90) m/uL Hgb (13.0-17.5) gm/dL Hct (39.0-53.0) % RDW (11.5-15.5) % ABG pH (7.35-7.45) ABG pCO2 33 L (35-45) mmHg ABG pO2 221 H 292 H 272 H (83-108) mmHg ABG HCO3 (21-25) mmol/L ABG O2 Saturation 99.8 H 99.9 H 99.9 H (94-97) % ABG Hematocrit 12 L* 12 L* 18 L* (34.0-46.0) % ABG Sodium (135-146) mmol/L ABG Potassium (3.4-4.5) mmol/L BUN (9-20) mg/dL Creatinine (0.66-1.25) mg/dL POC Glucose (mg/dL) (75-99) mg/dL AST (17-59) U/L ALT (21-72) U/L Albumin (3.5-5.0) g/dL Arterial Blood Potassium (3.4-4.5) mmol/L Crossmatch 07/29/16 07/29/16 07/29/16 Range/Units 10:06 10:34 11:09 WBC (3.8-10.6) k/uL RBC (4.30-5.90) m/uL Hgb (13.0-17.5) gm/dL Hct (39.0-53.0) % RDW (11.5-15.5) % ABG pH 7.31 L (7.35-7.45) ABG pCO2 46 H (35-45) mmHg ABG pO2 322 H 237 H 244 H (83-108) mmHg ABG HCO3 (21-25) mmol/L ABG O2 Saturation 99.9 H 99.8 H 99.8 H (94-97) % ABG Hematocrit 23 L 24 L 25 L (34.0-46.0) % ABG Sodium (135-146) mmol/L ABG Potassium 4.6 H (3.4-4.5) mmol/L BUN (9-20) mg/dL Creatinine (0.66-1.25) mg/dL POC Glucose (mg/dL) (75-99) mg/dL AST (17-59) U/L ALT (21-72) U/L Albumin (3.5-5.0) g/dL Arterial Blood Potassium 4.6 H (3.4-4.5) mmol/L Crossmatch 07/29/16 07/29/16 07/29/16 Range/Units 11:26 11:52 12:38 WBC (3.8-10.6) k/uL RBC (4.30-5.90) m/uL Hgb (13.0-17.5) gm/dL Hct (39.0-53.0) % RDW (11.5-15.5) % ABG pH 7.34 L 7.31 L 7.25 L (7.35-7.45) ABG pCO2 47 H (35-45) mmHg ABG pO2 222 H 240 H 161 H (83-108) mmHg ABG HCO3 20 L (21-25) mmol/L ABG O2 Saturation 99.7 H 99.8 H 99.1 H (94-97) % ABG Hematocrit 24 L 22 L 19 L* (34.0-46.0) % ABG Sodium (135-146) mmol/L ABG Potassium 4.7 H 4.7 H (3.4-4.5) mmol/L BUN (9-20) mg/dL Creatinine (0.66-1.25) mg/dL POC Glucose (mg/dL) (75-99) mg/dL AST (17-59) U/L ALT (21-72) U/L Albumin (3.5-5.0) g/dL Arterial Blood Potassium 4.7 H 4.7 H (3.4-4.5) mmol/L Crossmatch 07/29/16 07/29/16 08/14/16 Range/Units 12:59 13:22 02:58 WBC (3.8-10.6) k/uL RBC (4.30-5.90) m/uL Hgb (13.0-17.5) gm/dL Hct (39.0-53.0) % RDW (11.5-15.5) % ABG pH 7.31 L 7.34 L (7.35-7.45) ABG pCO2 46 H (35-45) mmHg ABG pO2 138 H 151 H (83-108) mmHg ABG HCO3 (21-25) mmol/L ABG O2 Saturation 98.8 H 99.2 H (94-97) % ABG Hematocrit 18 L* 18 L* (34.0-46.0) % ABG Sodium 147 H (135-146) mmol/L ABG Potassium (3.4-4.5) mmol/L BUN (9-20) mg/dL Creatinine (0.66-1.25) mg/dL POC Glucose (mg/dL) 120 H (75-99) mg/dL AST (17-59) U/L ALT (21-72) U/L Albumin (3.5-5.0) g/dL Arterial Blood Potassium (3.4-4.5) mmol/L Crossmatch 08/14/16 08/14/16 08/14/16 Range/Units 06:25 06:25 06:45 WBC 13.4 H (3.8-10.6) k/uL RBC 2.29 L (4.30-5.90) m/uL Hgb 7.3 L (13.0-17.5) gm/dL Hct 21.6 L (39.0-53.0) % RDW 19.8 H (11.5-15.5) % ABG pH (7.35-7.45) ABG pCO2 (35-45) mmHg ABG pO2 (83-108) mmHg ABG HCO3 (21-25) mmol/L ABG O2 Saturation (94-97) % ABG Hematocrit (34.0-46.0) % ABG Sodium (135-146) mmol/L ABG Potassium (3.4-4.5) mmol/L BUN 50 H (9-20) mg/dL Creatinine 5.09 H* (0.66-1.25) mg/dL POC Glucose (mg/dL) 106 H (75-99) mg/dL AST 116 H (17-59) U/L ALT 97 H (21-72) U/L Albumin 3.2 L (3.5-5.0) g/dL Arterial Blood Potassium (3.4-4.5) mmol/L Crossmatch 08/14/16 08/14/16 08/14/16 Range/Units 11:46 11:48 16:37 WBC (3.8-10.6) k/uL RBC (4.30-5.90) m/uL Hgb (13.0-17.5) gm/dL Hct (39.0-53.0) % RDW (11.5-15.5) % ABG pH (7.35-7.45) ABG pCO2 (35-45) mmHg ABG pO2 (83-108) mmHg ABG HCO3 (21-25) mmol/L ABG O2 Saturation (94-97) % ABG Hematocrit (34.0-46.0) % ABG Sodium (135-146) mmol/L ABG Potassium (3.4-4.5) mmol/L BUN (9-20) mg/dL Creatinine (0.66-1.25) mg/dL POC Glucose (mg/dL) 142 H 147 H (75-99) mg/dL AST (17-59) U/L ALT (21-72) U/L Albumin (3.5-5.0) g/dL Arterial Blood Potassium (3.4-4.5) mmol/L Crossmatch See Detail 08/14/16 Range/Units 21:18 WBC (3.8-10.6) k/uL RBC (4.30-5.90) m/uL Hgb (13.0-17.5) gm/dL Hct (39.0-53.0) % RDW (11.5-15.5) % ABG pH (7.35-7.45) ABG pCO2 (35-45) mmHg ABG pO2 (83-108) mmHg ABG HCO3 (21-25) mmol/L ABG O2 Saturation (94-97) % ABG Hematocrit (34.0-46.0) % ABG Sodium (135-146) mmol/L ABG Potassium (3.4-4.5) mmol/L BUN (9-20) mg/dL Creatinine (0.66-1.25) mg/dL POC Glucose (mg/dL) 128 H (75-99) mg/dL AST (17-59) U/L ALT (21-72) U/L Albumin (3.5-5.0) g/dL Arterial Blood Potassium (3.4-4.5) mmol/L Crossmatch Laboratory Results WBC 13.4 k/uL (3.8-10.6) H 04/26/17 06:25 RBC 2.29 m/uL (4.30-5.90) L 08/14/16 06:25 Hgb 7.3 gm/dL (13.0-17.5) L 08/14/16 06:25 Hct 21.6 % (39.0-53.0) L 08/14/16 06:25 MCV 94.1 fL (80.0-100.0) 08/14/16 06:25 MCH 31.6 pg (25.0-35.0) 08/14/16 06:25 MCHC 33.6 g/dL (31.0-37.0) 08/14/16 06:25 RDW 19.8 % (11.5-15.5) H 08/14/16 06:25 Plt Count 199 k/uL (150-450) 08/14/16 06:25 Neutrophils % 88 % 08/09/16 07:35 Neutrophils % (Manual) 81.0 % 07/29/16 14:10 Band Neutrophils % 4.0 % 07/29/16 14:10 Lymphocytes % 6 % 08/09/16 07:35 Lymphocytes % (Manual) 9.0 % 07/29/16 14:10 Monocytes % 4 % 08/09/16 07:35 Monocytes % (Manual) 2.0 % 07/29/16 14:10 Eosinophils % 1 % 08/09/16 07:35 Eosinophils % (Manual) 4.0 % 07/29/16 14:10 Basophils % 0 % 08/09/16 07:35 Myelocytes % 0.5 % 07/26/16 06:10 Neutrophils # 9.7 k/uL (1.3-7.7) H 08/09/16 07:35 Neutrophils # (Manual) 12.2 k/uL (1.3-7.7) H 07/29/16 14:10 Lymphocytes # 0.6 k/uL (1.0-4.8) L 08/09/16 07:35 Lymphocytes # (Manual) 1.3 k/uL (1.0-4.8) 07/29/16 14:10 Monocytes # 0.5 k/uL (0-1.0) 08/09/16 07:35 Monocytes # (Manual) 0.3 k/uL (0-1.0) 07/29/16 14:10 Eosinophils # 0.1 k/uL (0-0.7) 08/09/16 07:35 Eosinophils # (Manual) 0.6 k/uL (0-0.7) 07/29/16 14:10 Basophils # 0.0 k/uL (0-0.2) 08/09/16 07:35 Nucleated RBCs 0 /100 WBC (0-0) 07/29/16 14:10 Manual Slide Review Performed 08/04/16 05:45 Polychromasia Present 07/29/16 14:10 Hypochromasia Slight 08/14/16 06:25 Poikilocytosis Slight 08/14/16 06:25 Poikilocytosis (manual Present 07/26/16 06:10 Anisocytosis Slight 08/14/16 06:25 Macrocytosis Slight 08/14/16 06:25 PT 13.0 sec (9.0-12.0) H 08/09/16 07:35 INR 1.3 (<1.1) 08/09/16 07:35 APTT 46.6 sec (22.0-30.0) H 08/09/16 07:35 Fibrinogen 206 mg/dL (200-500) 07/29/16 14:10 Sample Site [email or web address] 08/05/16 21:25 ABG pH 7.46 (7.35-7.45) H 08/05/16 21:25 ABG pCO2 37 mmHg (35-45) 08/05/16 21:25 ABG pO2 111 mmHg (83-108) H 08/05/16 21:25 ABG HCO3 25 mmol/L (21-25) 08/05/16 21:25 ABG Total CO2 27 mmol/L (19-24) H 08/05/16 21:25 ABG O2 Saturation 98.0 % (94-97) H 08/05/16 21:25 ABG Base Excess 1.8 mmol/L 08/05/16 21:25 ABG Hematocrit 18 % (34.0-46.0) L* 07/29/16 13:22 ABG Sodium 145 mmol/L (135-146) 07/29/16 13:22 ABG Potassium 4.4 mmol/L (3.4-4.5) 07/29/16 13:22 FiO2 40 % 08/05/16 21:25 Sodium 140 mmol/L (137-145) 08/14/16 06:25 Potassium 4.3 mmol/L (3.5-5.1) 08/14/16 06:25 Chloride 101 mmol/L (98-107) 08/14/16 06:25 Carbon Dioxide 24 mmol/L (22-30) 08/14/16 06:25 Anion Gap 15 mmol/L 08/14/16 06:25 BUN 50 mg/dL (9-20) H 08/14/16 06:25 Creatinine 5.09 mg/dL (0.66-1.25) H* 08/14/16 06:25 Est GFR (MDRD) Af Amer 13 (>60 ml/min/1.73 sqM) 08/14/16 06:25 Est GFR (MDRD) Non-Af 11 (>60 ml/min/1.73 sqM) 08/14/16 06:25 Glucose 97 mg/dL (74-99) 08/14/16 06:25 POC Glucose (mg/dL) 128 mg/dL (75-99) H 08/14/16 21:18 POC Glu [employer] Jhon Mendez 08/14/16 21:[address] Glu mg/dL 111 mg/dL 07/25/16 06:21 Hemoglobin A1c 5.5 % (4.2-6.1) 07/25/16 06:21 Calcium 8.7 mg/dL (8.4-10.2) 08/14/16 06:25 Ionized Calcium [place] 4.5 mg/dL (4.5-5.3) 08/05/16 04:55 Phosphorus 4.4 mg/dL (2.5-4.5) 08/09/16 07:35 Magnesium 2.2 mg/dL (1.6-2.3) 08/09/16 07:35 Iron 30 ug/dL (49-181) L 07/27/16 05:54 TIBC 273 ug/dL (261-462) 07/27/16 05:54 % Saturation 11.0 % (20-50) L 07/27/16 05:54 Total Bilirubin 1.0 mg/dL (0.2-1.3) 08/14/16 06:25 AST 116 U/L (17-59) H 08/14/16 06:25 ALT 97 U/L (21-72) H 08/14/16 06:25 Alkaline Phosphatase 104 U/L (38-126) 08/14/16 06:25 NT-Pro-B Natriuret Pep [id number] pg/mL 07/25/16 06:21 Total Protein 6.3 g/dL (6.3-8.2) 08/14/16 06:25 Albumin 3.2 g/dL (3.5-5.0) L 08/14/16 06:25 Triglycerides 78 mg/dL (<150) 07/26/16 06:10 Cholesterol 143 mg/dL (<200) 07/26/16 06:10 LDL Cholesterol, Calc 72 mg/dL (0-99) 07/26/16 06:10 HDL Cholesterol 55 mg/dL (40-60) 07/26/16 06:10 TSH 3.000 mIU/L (0.465-4.680) 07/26/16 06:10 Arterial Blood Potassium 4.4 mmol/L (3.4-4.5) 07/29/16 13:22 Urine Color Light Yellow 07/25/16 20:46 Urine Appearance Clear (Clear) 07/25/16 20:46 Urine pH 8.0 (5.0-8.0) 07/25/16 20:46 Ur Specific [place] 1.007 (1.001-1.035) 07/25/16 20:46 Urine Protein 2+ (Negative) H 07/25/16 20:46 Urine Glucose (UA) 1+ (Negative) H 07/25/16 20:46 Urine Ketones Negative (Negative) 07/25/16 20:46 Urine Blood Trace (Negative) H 07/25/16 20:46 Urine Nitrite Negative (Negative) 07/25/16 20:46 Urine Bilirubin Negative (Negative) 07/25/16 20:46 Urine Urobilinogen <2.0 mg/dL (<2.0) 07/25/16 20:46 Ur Leukocyte Esterase Negative (Negative) 07/25/16 20:46 Urine RBC <1 /hpf (0-5) 07/25/16 20:46 Urine WBC <1 /hpf (0-5) 07/25/16 20:46 Ur Squamous Epith Cells <1 /hpf (0-4) 07/25/16 20:46 Urine Bacteria Rare /hpf (None) H 07/25/16 20:46 Stool Occult Blood Positive (Negative) 07/25/16 20:46 Random Vancomycin 9.5 ug/mL 07/30/16 06:00 c-ANCA <1:20 Titer (<1:20) 07/31/16 08:45 p-ANCA <1:20 Titer (<1:20) 07/31/16 08:45 C. difficile (EIA) Intrp Negative (Negative) 08/12/16 02:30 Hepatitis A IgM Ab NEGATIVE 07/26/16 06:10 Hep Bs Antigen Negative 08/12/16 06:23 Hep Bs Antibody POSITIVE (Negative) 08/12/16 06:23 Hep B Core Total Ab Non-Reactive (Non-Reactive) 08/12/16 06:23 Hep B Core IgM Ab NEGATIVE 07/26/16 06:10 Hep C IgG Ab Negative (Negative) 07/26/16 06:10 Virus Source See Below 08/01/16 16:15 Viral Test See Below 08/01/16 16:15 Virus Analysis Interp See Below 08/01/16 16:15 Blood Type B Positive 08/14/16 11:48 Blood Type Confirm B Positive 07/27/16 05:59 Blood Type Recheck No 08/14/16 11:48 Antibody Screen NEGATIVE 08/14/16 11:48 Crossmatch See Detail 08/14/16 11:48 Transfuse Plasma 07/29/2016 07/29/16 12:59 Transfuse Platelets 07/29/2016 07/29/16 13:00 Spec Expiration Date 08/17/2016 - 2348 08/14/16 11:48 Microbiology 08/01/16 16:15 Bronchial Washings - Left Fungal Culture - Preliminary 07/31/16 05:55 Blood Blood Culture - Final No Growth after 144 hours 07/31/16 05:55 Blood Blood Culture - Final No Growth after 144 hours 08/01/16 16:15 Bronchial Washings - Left Gram Stain - Final 08/01/16 16:15 Bronchial Washings - Left Bronchial Washings Culture - Final Pseudomonas aeruginosa 08/01/16 16:15 Bronchial Washings - Left Acid Fast Bacilli Smear - Final 08/01/16 16:15 Bronchial Washings - Left Acid Fast Bacilli Culture - Preliminary 07/25/16 20:46 Urine,Voided Urine Culture - Final Assessment and Plan (1) Non-STEMI (non-ST elevated myocardial infarction) Status: Acute (2) Diabetic foot ulcer associated with type 2 diabetes mellitus Narrative/Plan: The total contact cast is in reapplied to the left leg. Doing well. Continues to recover from his cardiovascular surgery. 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 BAL that showed evidence of pseudomonas aeruginosa was treated with piperacillin tazobactam. The 7 day course is complete. Continue ongoing supportive care. His neurological status continues to improve. The pseudoaneurysm to the right groin continues to heal, ecchymosis is improving. Daily improvement is being recorded. We'll go to rehab at discharge. Has been tolerating dialysis without difficulties. Patient is complaining of some pain to his coccyx and buttocks. No ulcerations are seen. The zinc protective ointment is applied. Cushioning is obtained for his chair and his bed. . The patient's relates when he is at dialysis does utilize a cushion on his chair because he does have pain when he sits in a chair. This is not new. Improved appetite showing some improvement today. Metronidazole discontinued no C Diff found WBC improving Status: Acute
[2016-08-15 02:47] LABS: Glucose,Whole Blood 119 mg/dL (75-99)
[2016-08-15] MEDS: HYDROcodone/APAP 5-325MG 1 EACH TAB PO PRN ×4 (02:49→22:01)
[2016-08-15 06:49] LABS: Anisocytosis Moderate; Basophils # (A) 0.1 k/uL (0-0.2); Basophils % (A) 1 %; CH 29.6; CHCM 31.5; Eosinophils # (A) 0.3 k/uL (0-0.7); Eosinophils % (A) 3 %; HCT 26.2 % (39.0-53.0); HDW 3.61; HGB 8.2 gm/dL (13.0-17.5); Hypochromasia Moderate; Luc # (Auto) 0.23; Luc % (Auto) 2; Lymphocytes # (A) 0.6 k/uL (1.0-4.8); Lymphocytes % (A) 6 %; MCHC 31.5 g/dL (31.0-37.0); MCV 95.2 fL (80.0-100.0); Macrocytosis Slight; Mean Platelet Volume 7.6; Monocytes # (A) 0.6 k/uL (0-1.0); Monocytes % (A) 6 %; Neutrophils # (A) 8.1 k/uL (1.3-7.7); Neutrophils % (A) 81 %; Poikilocytosis Slight; RBC 2.75 m/uL (4.30-5.90); RDW 21.4 % (11.5-15.5); WBC (Perox) 10.07
[2016-08-15 06:51] LABS: Calcium 8.9 mg/dL (8.4-10.2); Potassium 4.3 mmol/L (3.5-5.1)
[2016-08-15 06:55] LABS: Glucose,Whole Blood 98 mg/dL (75-99)
[2016-08-15] MEDS: PANTOPRAZOLE 40 MG TABLET PO SCH (07:03)
[2016-08-15] MEDS: MIDODRINE 5 MG TAB PO SCH ×3 (07:03→16:57)
[2016-08-15] MEDS: CALCIUM ACETATE 667 MG CAP PO SCH ×3 (07:03→16:56)
[2016-08-15] MEDS: INSULIN LISPRO (humaLOG) 300 UNIT/3 ML VIAL SQ SCH ×4 (07:03→21:38)
[2016-08-15] MEDS: IPRATROPIUM-ALBUTEROL 3 ML NEB INHALATION SCH ×4 (08:35→19:45)
[2016-08-15] MEDS: predniSONE 5 MG TAB PO SCH (08:45)
[2016-08-15] MEDS: ASPIRIN 81 MG CHEW PO SCH (08:45)
[2016-08-15] MEDS: AMIODARONE 200 MG TAB PO SCH (08:45)
[2016-08-15] MEDS: ALLOPURINOL 100 MG TAB PO SCH (08:45)
[2016-08-15] MEDS: HEPARIN SODIUM,PORCINE 5,000 UNIT/ML 1 ML VIAL SQ SCH ×2 (08:46→16:56)
[2016-08-15] MEDS: NYSTATIN 100,000 UNIT/ML SUSP 500,000 UNIT/5 ML CUP PO SCH ×4 (08:47→21:45)
--- NOTE | 2016-08-15 09:02 | P.PN ---
Subjective Patient seen in follow-up for end-stage renal disease. He is maintained on hemodialysis on a Friday schedule. He was extubated August 04 and is currently on a nasal cannula. He's been undergoing dialysis almost on a daily basis and is now back on Friday schedule. He underwent 2 bronchoscopies this admission revealing left lung bleeding. Bronchial washings positive for Pseudomonas. He is communicating well. He underwent hemodialysis Friday with 2.5 L ultrafiltration. Appetite is good. No active complaints at this time except that he feels weak. Vital signs are stable. General: The patient appeared well nourished and normally developed. HEENT: Head exam is unremarkable. Neck is without jugular venous distension. LUNGS: Diffuse rhonchi. Breath sounds decreased. HEART: Rate and Rhythm are regular. First and second heart sounds normal. No murmurs, rubs or gallops. ABDOMEN: Abdominal exam reveals normal bowel sounds. Non-tender and non- distended. No evidence of peritonitis. EXTREMITITES: Trace edema. Objective - Vital Signs Vital signs: Vital Signs Temp 97.4 F L 08/15/16 03:00 Pulse 76 08/15/16 08:00 Resp 16 08/15/16 08:00 BP 111/51 08/15/16 08:00 Pulse Ox 100 08/15/16 08:00 Intake & Output 08/14/16 08/15/16 08/15/16 18:59 06:59 18:59 Intake Total 310 20 Balance 310 20 Weight 75.5 kg Intake: IV 20 0.9 flush 20 Blood Product 310 Rc As-1 Unit 310 [id number] Other: Voiding Method Diaper Diaper ABP, PAP, CO, CI - Last Documented Arterial Blood Pressure 156/51 Pulmonary Artery Pressure 40/30 Cardiac Output 6.4 Cardiac Index 3.3 - Labs CBC & Chem 7: 08/15/16 06:03 08/15/16 06:03 Labs: Abnormal Lab Results - Last 24 Hours (Table) 07/29/16 07/29/16 07/29/16 Range/Units 08:42 08:48 08:51 RBC (4.30-5.90) m/uL Hgb (13.0-17.5) gm/dL Hct (39.0-53.0) % RDW (11.5-15.5) % Neutrophils # (1.3-7.7) k/uL Lymphocytes # (1.0-4.8) k/uL ABG pH (7.35-7.45) ABG pCO2 33 L (35-45) mmHg ABG pO2 221 H 292 H 272 H (83-108) mmHg ABG HCO3 (21-25) mmol/L ABG O2 Saturation 99.8 H 99.9 H 99.9 H (94-97) % ABG Hematocrit 12 L* 12 L* 18 L* (34.0-46.0) % ABG Sodium (135-146) mmol/L ABG Potassium (3.4-4.5) mmol/L BUN (9-20) mg/dL Creatinine (0.66-1.25) mg/dL Glucose (74-99) mg/dL POC Glucose (mg/dL) (75-99) mg/dL AST (17-59) U/L ALT (21-72) U/L Albumin (3.5-5.0) g/dL Arterial Blood Potassium (3.4-4.5) mmol/L Crossmatch 07/29/16 07/29/16 07/29/16 Range/Units 10:06 10:34 11:09 RBC (4.30-5.90) m/uL Hgb (13.0-17.5) gm/dL Hct (39.0-53.0) % RDW (11.5-15.5) % Neutrophils # (1.3-7.7) k/uL Lymphocytes # (1.0-4.8) k/uL ABG pH 7.31 L (7.35-7.45) ABG pCO2 46 H (35-45) mmHg ABG pO2 322 H 237 H 244 H (83-108) mmHg ABG HCO3 (21-25) mmol/L ABG O2 Saturation 99.9 H 99.8 H 99.8 H (94-97) % ABG Hematocrit 23 L 24 L 25 L (34.0-46.0) % ABG Sodium (135-146) mmol/L ABG Potassium 4.6 H (3.4-4.5) mmol/L BUN (9-20) mg/dL Creatinine (0.66-1.25) mg/dL Glucose (74-99) mg/dL POC Glucose (mg/dL) (75-99) mg/dL AST (17-59) U/L ALT (21-72) U/L Albumin (3.5-5.0) g/dL Arterial Blood Potassium 4.6 H (3.4-4.5) mmol/L Crossmatch 07/29/16 07/29/16 07/29/16 Range/Units 11:26 11:52 12:38 RBC (4.30-5.90) m/uL Hgb (13.0-17.5) gm/dL Hct (39.0-53.0) % RDW (11.5-15.5) % Neutrophils # (1.3-7.7) k/uL Lymphocytes # (1.0-4.8) k/uL ABG pH 7.34 L 7.31 L 7.25 L (7.35-7.45) ABG pCO2 47 H (35-45) mmHg ABG pO2 222 H 240 H 161 H (83-108) mmHg ABG HCO3 20 L (21-25) mmol/L ABG O2 Saturation 99.7 H 99.8 H 99.1 H (94-97) % ABG Hematocrit 24 L 22 L 19 L* (34.0-46.0) % ABG Sodium (135-146) mmol/L ABG Potassium 4.7 H 4.7 H (3.4-4.5) mmol/L BUN (9-20) mg/dL Creatinine (0.66-1.25) mg/dL Glucose (74-99) mg/dL POC Glucose (mg/dL) (75-99) mg/dL AST (17-59) U/L ALT (21-72) U/L Albumin (3.5-5.0) g/dL Arterial Blood Potassium 4.7 H 4.7 H (3.4-4.5) mmol/L Crossmatch 07/29/16 07/29/16 08/14/16 Range/Units 12:59 13:22 06:25 RBC (4.30-5.90) m/uL Hgb (13.0-17.5) gm/dL Hct (39.0-53.0) % RDW (11.5-15.5) % Neutrophils # (1.3-7.7) k/uL Lymphocytes # (1.0-4.8) k/uL ABG pH 7.31 L 7.34 L (7.35-7.45) ABG pCO2 46 H (35-45) mmHg ABG pO2 138 H 151 H (83-108) mmHg ABG HCO3 (21-25) mmol/L ABG O2 Saturation 98.8 H 99.2 H (94-97) % ABG Hematocrit 18 L* 18 L* (34.0-46.0) % ABG Sodium 147 H (135-146) mmol/L ABG Potassium (3.4-4.5) mmol/L BUN 50 H (9-20) mg/dL Creatinine 5.09 H* (0.66-1.25) mg/dL Glucose (74-99) mg/dL POC Glucose (mg/dL) (75-99) mg/dL AST 116 H (17-59) U/L ALT 97 H (21-72) U/L Albumin 3.2 L (3.5-5.0) g/dL Arterial Blood Potassium (3.4-4.5) mmol/L Crossmatch 08/14/16 08/14/16 08/14/16 Range/Units 11:46 11:48 16:37 RBC (4.30-5.90) m/uL Hgb (13.0-17.5) gm/dL Hct (39.0-53.0) % RDW (11.5-15.5) % Neutrophils # (1.3-7.7) k/uL Lymphocytes # (1.0-4.8) k/uL ABG pH (7.35-7.45) ABG pCO2 (35-45) mmHg ABG pO2 (83-108) mmHg ABG HCO3 (21-25) mmol/L ABG O2 Saturation (94-97) % ABG Hematocrit (34.0-46.0) % ABG Sodium (135-146) mmol/L ABG Potassium (3.4-4.5) mmol/L BUN (9-20) mg/dL Creatinine (0.66-1.25) mg/dL Glucose (74-99) mg/dL POC Glucose (mg/dL) 142 H 147 H (75-99) mg/dL AST (17-59) U/L ALT (21-72) U/L Albumin (3.5-5.0) g/dL Arterial Blood Potassium (3.4-4.5) mmol/L Crossmatch See Detail 08/14/16 08/15/16 08/15/16 Range/Units 21:18 02:35 06:03 RBC 2.75 L (4.30-5.90) m/uL Hgb 8.2 L (13.0-17.5) gm/dL Hct 26.2 L (39.0-53.0) % RDW 21.4 H (11.5-15.5) % Neutrophils # 8.1 H (1.3-7.7) k/uL Lymphocytes # 0.6 L (1.0-4.8) k/uL ABG pH (7.35-7.45) ABG pCO2 (35-45) mmHg ABG pO2 (83-108) mmHg ABG HCO3 (21-25) mmol/L ABG O2 Saturation (94-97) % ABG Hematocrit (34.0-46.0) % ABG Sodium (135-146) mmol/L ABG Potassium (3.4-4.5) mmol/L BUN (9-20) mg/dL Creatinine (0.66-1.25) mg/dL Glucose (74-99) mg/dL POC Glucose (mg/dL) 128 H 119 H (75-99) mg/dL AST (17-59) U/L ALT (21-72) U/L Albumin (3.5-5.0) g/dL Arterial Blood Potassium (3.4-4.5) mmol/L Crossmatch 08/15/16 Range/Units 06:03 RBC (4.30-5.90) m/uL Hgb (13.0-17.5) gm/dL Hct (39.0-53.0) % RDW (11.5-15.5) % Neutrophils # (1.3-7.7) k/uL Lymphocytes # (1.0-4.8) k/uL ABG pH (7.35-7.45) ABG pCO2 (35-45) mmHg ABG pO2 (83-108) mmHg ABG HCO3 (21-25) mmol/L ABG O2 Saturation (94-97) % ABG Hematocrit (34.0-46.0) % ABG Sodium (135-146) mmol/L ABG Potassium (3.4-4.5) mmol/L BUN 71 H (9-20) mg/dL Creatinine 6.86 H* (0.66-1.25) mg/dL Glucose 102 H (74-99) mg/dL POC Glucose (mg/dL) (75-99) mg/dL AST (17-59) U/L ALT (21-72) U/L Albumin (3.5-5.0) g/dL Arterial Blood Potassium (3.4-4.5) mmol/L Crossmatch Microbiology - Last 24 Hours (Table) 08/01/16 16:15 Acid Fast Bacilli Smear - Final Bronchial Washings - Left Acid Fast Bacilli Culture - Preliminary Assessment and Plan Plan: Assessment: #1. End-stage renal disease maintained on hemodialysis on a Friday schedule via left upper extremity AV graft. #2. 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 #3. Left lung blood clots status post bronchoscopy 2. #4. Anemia. Status post blood transfusion on August 14. Hemoglobin improved. No signs of active bleeding. 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 Plan: Hemodialysis today with goal 2 L ultrafiltration as blood pressure tolerates. Maintain Aranesp. Continue with physical therapy. Hold antihypertensives for systolic blood pressure less than 120. Midodrine as needed. Potential discharge to rehab soon.
[2016-08-15] MEDS ORDERED: DIPHENOX-ATROP 2.5-0.025 MG 1 EACH TAB PO PRN (09:25)
[2016-08-15 11:20] LABS: Glucose,Whole Blood 133 mg/dL (75-99)
[2016-08-15] MEDS ORDERED: LISINOPRIL 10 MG TAB PO SCH (12:00)
[2016-08-15] MEDS: MULTIVITAMINS, THERA 1 EACH TAB PO SCH (12:12)
[2016-08-15] MEDS: FOLIC ACID 1 MG TAB PO SCH (12:12)
[2016-08-15] MEDS: THIAMINE 100 MG TAB PO SCH (12:12)
--- NOTE | 2016-08-15 12:35 | P.PN ---
Subjective Principal diagnosis: Status post CABG This is a 80-year-old gentleman who is status post coronary artery bypass grafting surgery. Postoperative course was complicated by intraoperative bleeding requiring bronchoscopy and prolonged ventilation. He is currently extubated and is being followed on the telemetry unit. He was sitting up in the chair at the time of our examination today. Overall his appetite is improving. He seems to be getting stronger. Arrangements are currently being made for the patient to be transferred to [facility] rehab, possibly today. Blood pressure today 110/55. Arrangements being made for rehab which will take place today or tomorrow. Amiodarone decreased to 200 mg one tablet by mouth daily. Objective - Vital Signs Vital signs: Vital Signs Temp 97.4 F L 08/15/16 03:00 Pulse 76 08/15/16 08:00 Resp 16 08/15/16 08:00 BP 111/51 08/15/16 08:00 Pulse Ox 100 08/15/16 08:00 Intake & Output 08/14/16 08/15/16 08/15/16 18:59 06:59 18:59 Intake Total 310 20 600 Balance 310 20 600 Weight 75.5 kg Intake: IV 20 0.9 flush 20 Oral 600 Blood Product 310 Rc As-1 Unit 310 [id number] Other: Voiding Method Diaper Diaper ABP, PAP, CO, CI - Last Documented Arterial Blood Pressure 156/51 Pulmonary Artery Pressure 40/30 Cardiac Output 6.4 Cardiac Index 3.3 - Exam PHYSICAL EXAMINATION: HEENT: Head is atraumatic, normocephalic. Pupils equal, round. Neck is supple. There is no elevated jugular venous pressure. HEART EXAMINATION: Heart S1, S2 normal. No murmur or gallop heard. CHEST EXAMINATION: Lungs are clear with mild diminished air entry to posterior bases. ABDOMEN: Soft, nontender. Bowel sounds are heard. No organomegaly noted. EXTREMITIES: 2+ peripheral pulses with no evidence of peripheral edema and no calf tenderness noted. NEUROLOGIC patient is awake, alert and oriented -3. . - Labs CBC & Chem 7: 08/15/16 06:03 08/15/16 06:03 Labs: Abnormal Lab Results - Last 24 Hours (Table) 07/29/16 07/29/16 07/29/16 Range/Units 08:42 08:48 08:51 RBC (4.30-5.90) m/uL Hgb (13.0-17.5) gm/dL Hct (39.0-53.0) % RDW (11.5-15.5) % Neutrophils # (1.3-7.7) k/uL Lymphocytes # (1.0-4.8) k/uL ABG pH (7.35-7.45) ABG pCO2 33 L (35-45) mmHg ABG pO2 221 H 292 H 272 H (83-108) mmHg ABG HCO3 (21-25) mmol/L ABG O2 Saturation 99.8 H 99.9 H 99.9 H (94-97) % ABG Hematocrit 12 L* 12 L* 18 L* (34.0-46.0) % ABG Sodium (135-146) mmol/L ABG Potassium (3.4-4.5) mmol/L BUN (9-20) mg/dL Creatinine (0.66-1.25) mg/dL Glucose (74-99) mg/dL POC Glucose (mg/dL) (75-99) mg/dL Arterial Blood Potassium (3.4-4.5) mmol/L Crossmatch 07/29/16 07/29/16 07/29/16 Range/Units 10:06 10:34 11:09 RBC (4.30-5.90) m/uL Hgb (13.0-17.5) gm/dL Hct (39.0-53.0) % RDW (11.5-15.5) % Neutrophils # (1.3-7.7) k/uL Lymphocytes # (1.0-4.8) k/uL ABG pH 7.31 L (7.35-7.45) ABG pCO2 46 H (35-45) mmHg ABG pO2 322 H 237 H 244 H (83-108) mmHg ABG HCO3 (21-25) mmol/L ABG O2 Saturation 99.9 H 99.8 H 99.8 H (94-97) % ABG Hematocrit 23 L 24 L 25 L (34.0-46.0) % ABG Sodium (135-146) mmol/L ABG Potassium 4.6 H (3.4-4.5) mmol/L BUN (9-20) mg/dL Creatinine (0.66-1.25) mg/dL Glucose (74-99) mg/dL POC Glucose (mg/dL) (75-99) mg/dL Arterial Blood Potassium 4.6 H (3.4-4.5) mmol/L Crossmatch 07/29/16 07/29/16 07/29/16 Range/Units 11:26 11:52 12:38 RBC (4.30-5.90) m/uL Hgb (13.0-17.5) gm/dL Hct (39.0-53.0) % RDW (11.5-15.5) % Neutrophils # (1.3-7.7) k/uL Lymphocytes # (1.0-4.8) k/uL ABG pH 7.34 L 7.31 L 7.25 L (7.35-7.45) ABG pCO2 47 H (35-45) mmHg ABG pO2 222 H 240 H 161 H (83-108) mmHg ABG HCO3 20 L (21-25) mmol/L ABG O2 Saturation 99.7 H 99.8 H 99.1 H (94-97) % ABG Hematocrit 24 L 22 L 19 L* (34.0-46.0) % ABG Sodium (135-146) mmol/L ABG Potassium 4.7 H 4.7 H (3.4-4.5) mmol/L BUN (9-20) mg/dL Creatinine (0.66-1.25) mg/dL Glucose (74-99) mg/dL POC Glucose (mg/dL) (75-99) mg/dL Arterial Blood Potassium 4.7 H 4.7 H (3.4-4.5) mmol/L Crossmatch 07/29/16 07/29/16 08/14/16 Range/Units 12:59 13:22 11:48 RBC (4.30-5.90) m/uL Hgb (13.0-17.5) gm/dL Hct (39.0-53.0) % RDW (11.5-15.5) % Neutrophils # (1.3-7.7) k/uL Lymphocytes # (1.0-4.8) k/uL ABG pH 7.31 L 7.34 L (7.35-7.45) ABG pCO2 46 H (35-45) mmHg ABG pO2 138 H 151 H (83-108) mmHg ABG HCO3 (21-25) mmol/L ABG O2 Saturation 98.8 H 99.2 H (94-97) % ABG Hematocrit 18 L* 18 L* (34.0-46.0) % ABG Sodium 147 H (135-146) mmol/L ABG Potassium (3.4-4.5) mmol/L BUN (9-20) mg/dL Creatinine (0.66-1.25) mg/dL Glucose (74-99) mg/dL POC Glucose (mg/dL) (75-99) mg/dL Arterial Blood Potassium (3.4-4.5) mmol/L Crossmatch See Detail 08/14/16 08/14/16 08/15/16 Range/Units 16:37 21:18 02:35 RBC (4.30-5.90) m/uL Hgb (13.0-17.5) gm/dL Hct (39.0-53.0) % RDW (11.5-15.5) % Neutrophils # (1.3-7.7) k/uL Lymphocytes # (1.0-4.8) k/uL ABG pH (7.35-7.45) ABG pCO2 (35-45) mmHg ABG pO2 (83-108) mmHg ABG HCO3 (21-25) mmol/L ABG O2 Saturation (94-97) % ABG Hematocrit (34.0-46.0) % ABG Sodium (135-146) mmol/L ABG Potassium (3.4-4.5) mmol/L BUN (9-20) mg/dL Creatinine (0.66-1.25) mg/dL Glucose (74-99) mg/dL POC Glucose (mg/dL) 147 H 128 H 119 H (75-99) mg/dL Arterial Blood Potassium (3.4-4.5) mmol/L Crossmatch 08/15/16 08/15/16 08/15/16 Range/Units 06:03 06:03 11:18 RBC 2.75 L (4.30-5.90) m/uL Hgb 8.2 L (13.0-17.5) gm/dL Hct 26.2 L (39.0-53.0) % RDW 21.4 H (11.5-15.5) % Neutrophils # 8.1 H (1.3-7.7) k/uL Lymphocytes # 0.6 L (1.0-4.8) k/uL ABG pH (7.35-7.45) ABG pCO2 (35-45) mmHg ABG pO2 (83-108) mmHg ABG HCO3 (21-25) mmol/L ABG O2 Saturation (94-97) % ABG Hematocrit (34.0-46.0) % ABG Sodium (135-146) mmol/L ABG Potassium (3.4-4.5) mmol/L BUN 71 H (9-20) mg/dL Creatinine 6.86 H* (0.66-1.25) mg/dL Glucose 102 H (74-99) mg/dL POC Glucose (mg/dL) 133 H (75-99) mg/dL Arterial Blood Potassium (3.4-4.5) mmol/L Crossmatch Microbiology - Last 24 Hours (Table) 08/01/16 16:15 Acid Fast Bacilli Smear - Final Bronchial Washings - Left Acid Fast Bacilli Culture - Preliminary Assessment and Plan (1) End-stage renal disease on hemodialysis Status: Acute (2) Hyperlipidemia Status: Acute (3) Hypertension Status: Acute (4) Non-STEMI (non-ST elevated myocardial infarction) Status: Acute (5) Status post aorto-coronary artery bypass graft Status: Acute (6) Diabetic foot ulcer associated with type 2 diabetes mellitus Status: Acute Plan: From cardiology's perspective, we will recommend to decrease amiodarone to 200 mg one tablet by mouth daily. Continue other current medications. DNP note has been reviewed, I agree with a documented findings and plan of care. Patient was seen and examined.
[2016-08-15 14:57] VITALS: BMI 26.9
[2016-08-15] MEDS: METOPROLOL TARTRATE 25 MG TAB PO SCH ×2 (15:11→21:41)
[2016-08-15 16:12] LABS: Glucose,Whole Blood 115 mg/dL (75-99)
--- NOTE | 2016-08-15 16:42 | P.PN ---
<Jorge Grace Domingo - Last Filed: 08/15/16 16:42> Progress Note - Text CV Surgery Nursing Principal diagnosis: Non-ST elevation myocardial infarction. POD #20 flexible nasal fiberoptic endoscopy POD #17 non-aortic clamp off pump double coronary artery bypass grafting x2 using the left internal mammary artery to the left anterior descending artery and reverse saphenous vein graft from the aorta to the posterior descending artery. Endoscopic harvesting of the right greater saphenous vein. Intraoperative transesophageal echocardiogram and epi-aortic scanning. Intraoperative graft flow measurements using the Medistim machine. Pt had intraparenchymal hemorrhage with increase oxygen demand after surgery requiring bronchoscopy. POD #14 bronchoscopy and bronchial alveolar lavage with bronchial washings demonstrate infection with pseudomonas. He has been treated with a course of Zosyn which was followed by Dr. Gordon from infectious disease. Patient awake and alert, no distress noted, patient complaining of generalized weakness. Denies complaints of pain at this time. He is currently getting bathed by nursing staff. Vital Signs: Afebrile Vital Signs - 24 hr 08/14/16 08/14/16 08/14/16 16:51 16:56 17:01 Temperature 97.9 F 97.6 F 97.6 F Pulse Rate 84 84 80 Pulse Rate [ Pulse Oximetery ] Respiratory 18 18 18 Rate Blood Pressure 100/48 89/44 102/47 Blood Pressure [Right Arm] O2 Sat by Pulse 99 Oximetry 08/14/16 08/14/16 08/14/16 17:16 17:31 17:46 Temperature 97.2 F L 97.6 F 97.9 F Pulse Rate 79 88 79 Pulse Rate [ Pulse Oximetery ] Respiratory 18 18 18 Rate Blood Pressure 97/46 102/47 89/44 Blood Pressure [Right Arm] O2 Sat by Pulse Oximetry 08/14/16 08/14/16 08/14/16 20:40 21:31 23:25 Temperature 97.5 F L 97.2 F L Pulse Rate Pulse Rate [ 77 76 Pulse Oximetery ] Respiratory 16 18 Rate Blood Pressure Blood Pressure 107/55 118/57 [Right Arm] O2 Sat by Pulse 96 93 L 95 Oximetry 08/15/16 08/15/16 03:00 08:00 Temperature 97.4 F L Pulse Rate Pulse Rate [ 81 76 Pulse Oximetery ] Respiratory 16 16 Rate Blood Pressure Blood Pressure 125/74 111/51 [Right Arm] O2 Sat by Pulse 95 100 Oximetry Labs: Short CBC 08/15/16 Range/Units 06:03 WBC 10.0 (3.8-10.6) k/uL Hgb 8.2 L (13.0-17.5) gm/dL Hct 26.2 L (39.0-53.0) % Plt Count 203 (150-450) k/uL Neutrophils # 8.1 H (1.3-7.7) k/uL BMP 08/15/16 06:03 Sodium 139 Potassium 4.3 Chloride 102 Carbon Dioxide 22 BUN 71 H Creatinine 6.86 H* Glucose 102 H Calcium 8.9 Lungs: Few scattered crackles to bilateral bases, essentially clear to his upper lobes. Respirations are symmetrical and unlabored. O2 sat: 95% on room air. I/S: 1500 mL, reviewed with the patient importance of using his incentive spirometry every hour while awake. Patient did give a good return demonstration on his incentive spirometry. Heart: S1S2, regular rhythm and rate, positive systolic murmur. Remote telemetry showing normal sinus rhythm heart rate 78. Sternum stable, chest incision clean, approximated and dry. Heart hugger in place, patient demonstrating proper use. Right leg incisions clean dry and well approximated. No drainage noted. knee-high DIONI hose and sequential compression device in place right lower extremity. Left lower leg with contact cast and place. Abdomen: Soft, Positive bowel sounds present in all 4 quadrants. Positive bowel movement yesterday 08/14/2016. CBGs: 98-147 mg/dL the last 24 hours. U/O: hemodialysis dependent, patient's left upper extremity AV fistula with positive bruit, positive thrill. 24 hr Total: Intake & Output 08/13/16 08/14/16 08/15/16 08/16/16 06:59 06:59 06:59 06:59 Intake Total 1110 150 330 600 Balance 1110 150 330 600 Weight 82.5 kg 81.5 kg 75.5 kg Active Medications Hydrocodone Bitart/Acetaminophen ([place] 5-325) 2 each PO Q4HR PRN PRN Reason: Severe Pain Last Admin: 08/15/16 02:49 Dose: 2 each Hydrocodone Bitart/Acetaminophen ([place] 5-325) 1 each PO Q4HR PRN PRN Reason: Moderate Pain Last Admin: 08/15/16 08:45 Dose: 1 each Albuterol/Ipratropium (Duoneb 0.5 Mg-3 Mg/3 Ml Soln) 3 ml INHALATION RT-Q2H PRN PRN Reason: Shortness Of Breath Or Wheezing Albuterol/Ipratropium (Duoneb 0.5 Mg-3 Mg/3 Ml Soln) 3 ml INHALATION RT-QID [facility] Last Admin: 08/15/16 08:35 Dose: Not Given Allopurinol (Zyloprim) 100 mg PO DAILY [facility] Last Admin: 08/15/16 08:45 Dose: 100 mg Amiodarone HCl (Cordarone) 200 mg PO DAILY [facility] Aspirin (Aspirin) 81 mg PO DAILY [facility] Last Admin: 08/15/16 08:45 Dose: 81 mg Benzocaine/Menthol (Cepacol Lozenge) 1 each MUCOUS MEM Q2H PRN PRN Reason: Sore Throat Bisacodyl (Dulcolax) 10 mg RECTAL DAILY PRN PRN Reason: Constipation Calcium Acetate (Phoslo) 667 mg PO TID-W/MEALS [facility] Last Admin: 08/15/16 12:13 Dose: 667 mg Darbepoetin Kevin (Aranesp) 40 mcg SQ Q7D [facility] Last Admin: 08/08/16 17:24 Dose: 40 mcg Diphenoxylate HCl/Atropine (Lomotil) 0.5 each PO QID PRN PRN Reason: Diarrhea Folic Acid (Folic Acid) 1 mg PO DAILY@1200 [facility] Last Admin: 08/15/16 12:12 Dose: 1 mg Heparin Sodium (Porcine) (Heparin) 5,000 unit SQ Q8HR [facility] Last Admin: 08/15/16 08:46 Dose: 5,000 unit Hydralazine HCl (Apresoline) 10 mg IVP Q6HR PRN PRN Reason: Blood Pressure - High Last Admin: 08/06/16 10:27 Dose: 10 mg Insulin Human Lispro (Humalog) 0 unit SQ ACHS [facility] PRN Reason: Protocol Last Admin: 08/15/16 07:03 Dose: Not Given Lisinopril (Zestril) 2.5 mg PO DAILY@1200 [facility] Last Admin: 08/15/16 12:47 Dose: Not Given Magnesium Hydroxide (Milk Of Magnesia) 2,400 mg PO BID PRN PRN Reason: Constipation Metoclopramide HCl (Reglan) 10 mg IVP Q4H PRN PRN Reason: Nausea And Vomiting Metoprolol Tartrate (Lopressor) 25 mg PO BID [facility] Last Admin: 08/14/16 23:27 Dose: 25 mg Midodrine (Proamatine) 10 mg PO AC-TID [facility] Last Admin: 08/15/16 12:13 Dose: 10 mg Miscellaneous Information (Magnesium Per Protocol) 1 each MISCELLANE DAILY PRN ; Protocol PRN Reason: Per Protocol Miscellaneous Information (Phosphorus Per Protocol) 1 each MISCELLANE DAILY PRN ; Protocol PRN Reason: Per Protocol Miscellaneous Information (Potassium Per Protocol) 1 each MISCELLANE DAILY PRN ; Protocol PRN Reason: Per Protocol Multivitamins (Theragran) 1 each PO DAILY@1200 [facility] Last Admin: 08/15/16 12:12 Dose: 1 each Nystatin (Mycostatin Oral Susp) 500,000 unit PO QID [facility] Last Admin: 08/15/16 12:13 Dose: 500,000 unit Ondansetron HCl (Zofran) 4 mg IVP Q6HR PRN PRN Reason: Nausea And Vomiting Pantoprazole Sodium (Protonix) 40 mg PO AC-BRKFST [facility] Last Admin: 08/15/16 07:03 Dose: 40 mg Prednisone () 5 mg PO DAILY [facility] Last Admin: 08/15/16 08:45 Dose: 5 mg Senna/Docusate Sodium (Senokot-S) 2 each PO HS [facility] Last Admin: 08/14/16 22:00 Dose: Not Given Sodium Chloride (Saline Flush) 10 ml IV BID [facility] Last Admin: 08/15/16 08:47 Dose: 10 ml Sodium Chloride (Saline Flush) 20 ml IV Q4HR PRN PRN Reason: PICC Line Sodium Chloride (Saline Flush) 10 ml IV WEEKLY [facility] Last Admin: 08/13/16 21:00 Dose: 10 ml Sodium Chloride (Saline Flush) 10 ml IV Q4HR PRN PRN Reason: PICC Line Sodium Chloride (Saline Flush) 10 ml IV Q12HR [facility] Last Admin: 08/15/16 09:06 Dose: Not Given Thiamine HCl (Vitamin B-1) 100 mg PO DAILY@1200 [facility] Last Admin: 08/15/16 12:12 Dose: 100 mg Plan: 1. Continue aspirin, Lipitor, heparin SQ, lisinopril (decreased to 2.5 mg by mouth daily at noon), lopressor and amiodarone. 2. Nephrology following for hemodialysis management. 3. PT/OT to work with patient, out of bed to chair 3 times a day as tolerated. 4. Dr. Gordon from infectious disease is following. 5. Encourage incentive spirometry use every hour while awake. 6. Will continue to monitor labs, chest x-rays. 7. Insulin management per primary service. 8. GI/DVT prophylaxis. 9. The patient will be transported to the wound care center here within the hospital for replacement of his left leg contact cast. 10. Dr. Lucas for pulmonary management. 11. Case management/social work on for discharge planning. Discharge plan is to discharge to [facility] for further rehabilitation needs <Guero Juárez - Last Filed: 08/15/16 16:50> Progress Note - Text The patient was seen and examined. I agree with the above assessment and plan. His antibiotics have been discontinued. He is receiving hemodialysis per nephrology. Physical therapy has been working with him. He'll likely be discharged to subacute rehab tomorrow.
[2016-08-15] MEDS: DARBEPOETIN ALFA 40 MCG/0.4 ML SYRINGE SQ SCH (18:13)
[2016-08-15] MEDS: SENNOSIDES-DOCUSATE SODIUM 1 EACH TAB PO SCH (22:01)
[2016-08-15 22:03] LABS: Glucose,Whole Blood 100 mg/dL (75-99)
--- NOTE | 2016-08-15 23:06 | P.PN ---
Subjective Principal diagnosis: cough This is a 80-year-old male known to infectious disease service as he has been treated for infection to his shunt on his left arm before as well as ulceration to his left heel. Patient states that he presented to [facility] because he was initially having epistaxis. This was on Friday. The bleeding was controlled and he was discharged home. He then returned on Friday as he woke up in the morning at 2 AM with a cough and shortness of breath that had been going on but continued to worsen. 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 He has been evaluated by cardiothoracic surgery and is scheduled for CABG on June 28. Patient does have history of end-stage renal disease on hemodialysis Friday and Friday and is followed by Dr. Fernandez. He denies any problems with his dialysis AV fistula in his left arm. [facility] under the care of Dr. Carey. He has a total contact cast to the left lower extremity . Regarding his epistaxis, patient was seen by Dr. Chen on underwent flexible nasal endoscopy finding a right anterior septal ulcer. Dr. Lucas is following from pulmonary medicine. Upon review of his previous wound cultures, he does have history of MRSA. Patient does have history of rheumatoid arthritis on prednisone only. 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 He has been evaluated by interventional radiology and repairs been performed. He is doing well and folow up shows resolution of the pseudoaneurysm The cardiothoracic surgeries occurred. He did well ,but had some bleeding into his lungs. A bronchoscopy was done to remove blood clots. Cultures reveal evidence pseudomonas aeruginosa from the BAL. Antibiotic therapy with Zosyn was begun. AP and fungal cultures are negative. Patient is improved out of the intensive care unit. Patient complains of some discomfort of buttocks, not new but worse now sitting in chair. Overall he is feeling better today. Eating much better. Having no other new complaints. He did have some diarrhea that has resolved. Metronidazole was discontinued Doing well off of antibiotic therapy. Awaiting rehab transfer Objective - Vital Signs Vital signs: Vital Signs Temp 97.2 F L 08/15/16 20:00 Pulse 88 08/15/16 20:00 Resp 18 08/15/16 20:00 BP 139/77 08/15/16 20:00 Pulse Ox 97 08/15/16 20:00 Intake & Output 08/15/16 08/15/16 08/16/16 06:59 18:59 06:59 Intake Total 20 600 Output Total 0 0 Balance 20 600 0 Weight 75.5 kg 75.5 kg Intake: IV 20 0.9 flush 20 Oral 600 Output: Urine 0 0 Other: Voiding Method Diaper Diaper # Voids 0 0 # Bowel Movements 0 0 ABP, PAP, CO, CI - Last Documented Arterial Blood Pressure 156/51 Pulmonary Artery Pressure 40/30 Cardiac Output 6.4 Cardiac Index 3.3 - Exam Gen: This is a 80-year-old male. On selective care. Extubated. Sitting upright. Able to communicate. HEENT: Head is atraumatic, normocephalic. Pupils equal, round. Sclerae is anicteric. Conjunctiva pink. Mucous members of the mouth are moist. No thrush noted. NECK: Supple. No JVD. No lymphadenopathy. No thyromegaly. LUNGS: Coarse crackles throughout the lung cotto HEART: Regular rate and rhythm. No murmur. ABDOMEN: Soft. Bowel sounds are present. No masses. No tenderness. EXTREMITIES: Total contact cast is back in place in the left leg. The right leg is without significant edema, pseudoaneurysm site to the right leg continues to heal and the ecchymosis is improving Skin: With the aids present the patient is started. There is evidence of some minimal erythema to the buttocks. No open ulcerations are seen in the buttocks or the coccyx. He is producing some stool that is thickened pasty in nature. There is no kris diarrhea. Dialysis graft of the left arm is intact.Difficulty with a skin tear NEUROLOGICAL: Sitting upright. A little more strength apparently was able to stand momentarily with a 2 person assist - Labs CBC & Chem 7: 08/15/16 06:03 08/15/16 06:03 Labs: Abnormal Lab Results - Last 24 Hours (Table) 08/15/16 08/15/16 08/15/16 Range/Units 02:35 06:03 06:03 RBC 2.75 L (4.30-5.90) m/uL Hgb 8.2 L (13.0-17.5) gm/dL Hct 26.2 L (39.0-53.0) % RDW 21.4 H (11.5-15.5) % Neutrophils # 8.1 H (1.3-7.7) k/uL Lymphocytes # 0.6 L (1.0-4.8) k/uL BUN 71 H (9-20) mg/dL Creatinine 6.86 H* (0.66-1.25) mg/dL Glucose 102 H (74-99) mg/dL POC Glucose (mg/dL) 119 H (75-99) mg/dL 08/15/16 08/15/16 08/15/16 Range/Units 11:18 16:10 21:37 RBC (4.30-5.90) m/uL Hgb (13.0-17.5) gm/dL Hct (39.0-53.0) % RDW (11.5-15.5) % Neutrophils # (1.3-7.7) k/uL Lymphocytes # (1.0-4.8) k/uL BUN (9-20) mg/dL Creatinine (0.66-1.25) mg/dL Glucose (74-99) mg/dL POC Glucose (mg/dL) 133 H 115 H 100 H (75-99) mg/dL Microbiology - Last 24 Hours (Table) 08/01/16 16:15 Acid Fast Bacilli Smear - Final Bronchial Washings - Left Acid Fast Bacilli Culture - Preliminary Laboratory Results WBC 10.0 k/uL (3.8-10.6) 08/15/16 06:03 RBC 2.75 m/uL (4.30-5.90) L 08/15/16 06:03 Hgb 8.2 gm/dL (13.0-17.5) L 08/15/16 06:03 Hct 26.2 % (39.0-53.0) L 08/15/16 06:03 MCV 95.2 fL (80.0-100.0) 08/15/16 06:03 MCH 30.0 pg (25.0-35.0) 08/15/16 06:03 MCHC 31.5 g/dL (31.0-37.0) 08/15/16 06:03 RDW 21.4 % (11.5-15.5) H 08/15/16 06:03 Plt Count 203 k/uL (150-450) 08/15/16 06:03 Neutrophils % 81 % 08/15/16 06:03 Neutrophils % (Manual) 81.0 % 07/29/16 14:10 Band Neutrophils % 4.0 % 07/29/16 14:10 Lymphocytes % 6 % 08/15/16 06:03 Lymphocytes % (Manual) 9.0 % 07/29/16 14:10 Monocytes % 6 % 08/15/16 06:03 Monocytes % (Manual) 2.0 % 07/29/16 14:10 Eosinophils % 3 % 08/15/16 06:03 Eosinophils % (Manual) 4.0 % 07/29/16 14:10 Basophils % 1 % 08/15/16 06:03 Myelocytes % 0.5 % 07/26/16 06:10 Neutrophils # 8.1 k/uL (1.3-7.7) H 08/15/16 06:03 Neutrophils # (Manual) 12.2 k/uL (1.3-7.7) H 07/29/16 14:10 Lymphocytes # 0.6 k/uL (1.0-4.8) L 08/15/16 06:03 Lymphocytes # (Manual) 1.3 k/uL (1.0-4.8) 07/29/16 14:10 Monocytes # 0.6 k/uL (0-1.0) 08/15/16 06:03 Monocytes # (Manual) 0.3 k/uL (0-1.0) 07/29/16 14:10 Eosinophils # 0.3 k/uL (0-0.7) 08/15/16 06:03 Eosinophils # (Manual) 0.6 k/uL (0-0.7) 07/29/16 14:10 Basophils # 0.1 k/uL (0-0.2) 08/15/16 06:03 Nucleated RBCs 0 /100 WBC (0-0) 07/29/16 14:10 Manual Slide Review Performed 08/04/16 05:45 Polychromasia Present 07/29/16 14:10 Hypochromasia Moderate 08/15/16 06:03 Poikilocytosis Slight 08/15/16 06:03 Poikilocytosis (manual Present 07/26/16 06:10 Anisocytosis Moderate 08/15/16 06:03 Macrocytosis Slight 08/15/16 06:03 PT 13.0 sec (9.0-12.0) H 08/09/16 07:35 INR 1.3 (<1.1) 08/09/16 07:35 APTT 46.6 sec (22.0-30.0) H 08/09/16 07:35 Fibrinogen 206 mg/dL (200-500) 07/29/16 14:10 Sample Site [place] 08/05/16 21:25 ABG pH 7.46 (7.35-7.45) H 08/05/16 21:25 ABG pCO2 37 mmHg (35-45) 08/05/16 21:25 ABG pO2 111 mmHg (83-108) H 08/05/16 21:25 ABG HCO3 25 mmol/L (21-25) 08/05/16 21:25 ABG Total CO2 27 mmol/L (19-24) H 08/05/16 21:25 ABG O2 Saturation 98.0 % (94-97) H 08/05/16 21:25 ABG Base Excess 1.8 mmol/L 08/05/16 21:25 ABG Hematocrit 18 % (34.0-46.0) L* 07/29/16 13:22 ABG Sodium 145 mmol/L (135-146) 07/29/16 13:22 ABG Potassium 4.4 mmol/L (3.4-4.5) 07/29/16 13:22 FiO2 40 % 08/05/16 21:25 Sodium 139 mmol/L (137-145) 08/15/16 06:03 Potassium 4.3 mmol/L (3.5-5.1) 08/15/16 06:03 Chloride 102 mmol/L (98-107) 08/15/16 06:03 Carbon Dioxide 22 mmol/L (22-30) 08/15/16 06:03 Anion Gap 15 mmol/L 08/15/16 06:03 BUN 71 mg/dL (9-20) H 08/15/16 06:03 Creatinine 6.86 mg/dL (0.66-1.25) H* 08/15/16 06:03 Est GFR (MDRD) Af Amer 9 (>60 ml/min/1.73 sqM) 08/15/16 06:03 Est GFR (MDRD) Non-Af 8 (>60 ml/min/1.73 sqM) 08/15/16 06:03 Glucose 102 mg/dL (74-99) H 08/15/16 06:03 POC Glucose (mg/dL) 100 mg/dL (75-99) H 08/15/16 21:37 POC Glu Ice Cream Man ID Alex Hurd 08/15/16 21:[address] Glu mg/dL 111 mg/dL 07/25/16 06:21 Hemoglobin A1c 5.5 % (4.2-6.1) 07/25/16 06:21 Calcium 8.9 mg/dL (8.4-10.2) 08/15/16 06:03 Ionized Calcium Lance 4.5 mg/dL (4.5-5.3) 08/05/16 04:55 Phosphorus 4.4 mg/dL (2.5-4.5) 08/09/16 07:35 Magnesium 2.2 mg/dL (1.6-2.3) 08/09/16 07:35 Iron 30 ug/dL (49-181) L 07/27/16 05:54 TIBC 273 ug/dL (261-462) 07/27/16 05:54 % Saturation 11.0 % (20-50) L 07/27/16 05:54 Total Bilirubin 1.0 mg/dL (0.2-1.3) 08/14/16 06:25 AST 116 U/L (17-59) H 08/14/16 06:25 ALT 97 U/L (21-72) H 08/14/16 06:25 Alkaline Phosphatase 104 U/L (38-126) 08/14/16 06:25 NT-Pro-B Natriuret Pep 91539 pg/mL 07/25/16 06:21 Total Protein 6.3 g/dL (6.3-8.2) 08/14/16 06:25 Albumin 3.2 g/dL (3.5-5.0) L 08/14/16 06:25 Triglycerides 78 mg/dL (<150) 07/26/16 06:10 Cholesterol 143 mg/dL (<200) 07/26/16 06:10 LDL Cholesterol, Calc 72 mg/dL (0-99) 07/26/16 06:10 HDL Cholesterol 55 mg/dL (40-60) 07/26/16 06:10 TSH 3.000 mIU/L (0.465-4.680) 07/26/16 06:10 Arterial Blood Potassium 4.4 mmol/L (3.4-4.5) 07/29/16 13:22 Urine Color Light Yellow 07/25/16 20:46 Urine Appearance Clear (Clear) 07/25/16 20:46 Urine pH 8.0 (5.0-8.0) 07/25/16 20:46 Ur Specific [place] 1.007 (1.001-1.035) 07/25/16 20:46 Urine Protein 2+ (Negative) H 07/25/16 20:46 Urine Glucose (UA) 1+ (Negative) H 07/25/16 20:46 Urine Ketones Negative (Negative) 07/25/16 20:46 Urine Blood Trace (Negative) H 07/25/16 20:46 Urine Nitrite Negative (Negative) 07/25/16 20:46 Urine Bilirubin Negative (Negative) 07/25/16 20:46 Urine Urobilinogen <2.0 mg/dL (<2.0) 07/25/16 20:46 Ur Leukocyte Esterase Negative (Negative) 07/25/16 20:46 Urine RBC <1 /hpf (0-5) 07/25/16 20:46 Urine WBC <1 /hpf (0-5) 07/25/16 20:46 Ur Squamous Epith Cells <1 /hpf (0-4) 07/25/16 20:46 Urine Bacteria Rare /hpf (None) H 07/25/16 20:46 Stool Occult Blood Positive (Negative) 07/25/16 20:46 Random Vancomycin 9.5 ug/mL 07/30/16 06:00 c-ANCA <1:20 Titer (<1:20) 07/31/16 08:45 p-ANCA <1:20 Titer (<1:20) 07/31/16 08:45 C. difficile (EIA) Intrp Negative (Negative) 08/12/16 02:30 Hepatitis A IgM Ab NEGATIVE 07/26/16 06:10 Hep Bs Antigen Negative 08/12/16 06:23 Hep Bs Antibody POSITIVE (Negative) 08/12/16 06:23 Hep B Core Total Ab Non-Reactive (Non-Reactive) 08/12/16 06:23 Hep B Core IgM Ab NEGATIVE 07/26/16 06:10 Hep C IgG Ab Negative (Negative) 07/26/16 06:10 Virus Source See Below 08/01/16 16:15 Viral Test See Below 08/01/16 16:15 Virus Analysis Interp See Below 08/01/16 16:15 Blood Type B Positive 08/14/16 11:48 Blood Type Confirm B Positive 07/27/16 05:59 Blood Type Recheck No 08/14/16 11:48 Antibody Screen NEGATIVE 08/14/16 11:48 Crossmatch See Detail 08/14/16 11:48 Transfuse Plasma 07/29/2016 07/29/16 12:59 Transfuse Platelets 07/29/2016 07/29/16 13:00 Spec Expiration Date 08/17/2016 - 2348 08/14/16 11:48 Microbiology 08/01/16 16:15 Bronchial Washings - Left Acid Fast Bacilli Smear - Final 08/01/16 16:15 Bronchial Washings - Left Acid Fast Bacilli Culture - Preliminary 08/01/16 16:15 Bronchial Washings - Left Fungal Culture - Preliminary 07/31/16 05:55 Blood Blood Culture - Final No Growth after 144 hours 07/31/16 05:55 Blood Blood Culture - Final No Growth after 144 hours 08/01/16 16:15 Bronchial Washings - Left Gram Stain - Final 08/01/16 16:15 Bronchial Washings - Left Bronchial Washings Culture - Final Pseudomonas aeruginosa 07/25/16 20:46 Urine,Voided Urine Culture - Final Assessment and Plan (1) Non-STEMI (non-ST elevated myocardial infarction) Status: Acute (2) Diabetic foot ulcer associated with type 2 diabetes mellitus Narrative/Plan: The total contact cast is in reapplied to the left leg. Doing well. Continues to recover from his cardiovascular surgery. 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 BAL that showed evidence of pseudomonas aeruginosa was treated with piperacillin tazobactam. The 7 day course is complete. He is off of antibiotic therapy doing well with no recurrent fevers. Getting ready for transfer to rehab Continue ongoing supportive care. His neurological status continues to improve. The pseudoaneurysm to the right groin continues to heal, ecchymosis is improving. Daily improvement is being recorded. We'll go to rehab at discharge. Has been tolerating dialysis without difficulties. Patient is complaining of some pain to his coccyx and buttocks. No ulcerations are seen. The zinc protective ointment is applied. Cushioning is obtained for his chair and his bed. . The patient's relates when he is at dialysis does utilize a cushion on his chair because he does have pain when he sits in a chair. This is not new. Improved appetite showing some improvement today. Metronidazole discontinued no C Diff found WBC improving Status: Acute
[2016-08-16] MEDS: HEPARIN SODIUM,PORCINE 5,000 UNIT/ML 1 ML VIAL SQ SCH ×3 (00:25→15:20)
[2016-08-16 06:16] LABS: Anisocytosis Moderate; Aty Lym Flag Slight; CH 29.9; CHCM 31.2; HCT 28.8 % (39.0-53.0); HDW 3.54; HGB 8.8 gm/dL (13.0-17.5); Hypochromasia Moderate; MCH 29.8 pg (25.0-35.0); MCHC 30.7 g/dL (31.0-37.0); MCV 97.2 fL (80.0-100.0); Macrocytosis Moderate; Mean Platelet Volume 7.1; Poikilocytosis Slight; RBC 2.96 m/uL (4.30-5.90); RDW 21.6 % (11.5-15.5); WBC 9.4 k/uL (3.8-10.6); WBC (Perox) 10.03
[2016-08-16] MEDS: INSULIN LISPRO (humaLOG) 300 UNIT/3 ML VIAL SQ SCH ×2 (06:28→12:30)
[2016-08-16] MEDS: MIDODRINE 5 MG TAB PO SCH ×2 (06:29→12:29)
[2016-08-16] MEDS: CALCIUM ACETATE 667 MG CAP PO SCH ×2 (06:30→12:29)
[2016-08-16] MEDS: PANTOPRAZOLE 40 MG TABLET PO SCH (06:30)
[2016-08-16 06:35] LABS: Glucose,Whole Blood 102 mg/dL (75-99)
[2016-08-16 06:57] LABS: Potassium 3.9 mmol/L (3.5-5.1)
[2016-08-16 07:06] LABS: Add Differential Manual Differential
[2016-08-16 07:08] LABS: Manual Review Performed; Nucleated Red Blood Cells 0 /100 WBC (0-0); Polychromasia Present; Total Cells Counted 100
--- NOTE | 2016-08-16 08:23 | P.PN ---
Subjective Patient seen in follow-up for end-stage renal disease. He is maintained on hemodialysis on a Friday schedule. He was extubated August 04 and is currently on a nasal cannula. He was undergoing dialysis almost on a daily basis post-CABG and is now back on Friday schedule. He underwent 2 bronchoscopies this admission revealing left lung bleeding. Bronchial washings positive for Pseudomonas. He is communicating well. Appetite is good. Currently sitting up in a chair and having breakfast. No active complaints at this time except that he feels weak. Vital signs are stable. General: The patient appeared well nourished and normally developed. HEENT: Head exam is unremarkable. Neck is without jugular venous distension. LUNGS: Diffuse rhonchi. Breath sounds decreased. HEART: Rate and Rhythm are regular. First and second heart sounds normal. No murmurs, rubs or gallops. ABDOMEN: Abdominal exam reveals normal bowel sounds. Non-tender and non- distended. No evidence of peritonitis. EXTREMITITES: Trace edema. Objective - Vital Signs Vital signs: Vital Signs Temp 97.3 F L 08/16/16 04:00 Pulse 75 08/16/16 04:00 Resp 18 08/16/16 04:00 BP 137/60 08/16/16 04:00 Pulse Ox 97 08/16/16 04:00 Intake & Output 08/15/16 08/16/16 08/16/16 18:59 06:59 18:59 Intake Total 600 Output Total 0 0 Balance 600 0 Weight 75.5 kg 76 kg Intake: Oral 600 Output: Urine 0 0 Other: Voiding Method Diaper # Voids 0 0 # Bowel Movements 0 1 ABP, PAP, CO, CI - Last Documented Arterial Blood Pressure 156/51 Pulmonary Artery Pressure 40/30 Cardiac Output 6.4 Cardiac Index 3.3 - Labs CBC & Chem 7: 08/16/16 05:54 08/16/16 05:54 Labs: Abnormal Lab Results - Last 24 Hours (Table) 08/14/16 08/15/16 08/15/16 Range/Units 11:48 11:18 16:10 RBC (4.30-5.90) m/uL Hgb (13.0-17.5) gm/dL Hct (39.0-53.0) % MCHC (31.0-37.0) g/dL RDW (11.5-15.5) % Lymphocytes # (Manual) (1.0-4.8) k/uL Monocytes # (Manual) (0-1.0) k/uL BUN (9-20) mg/dL Creatinine (0.66-1.25) mg/dL Glucose (74-99) mg/dL POC Glucose (mg/dL) 133 H 115 H (75-99) mg/dL Crossmatch See Detail 08/15/16 08/16/16 08/16/16 Range/Units 21:37 05:54 05:54 RBC 2.96 L (4.30-5.90) m/uL Hgb 8.8 L (13.0-17.5) gm/dL Hct 28.8 L (39.0-53.0) % MCHC 30.7 L (31.0-37.0) g/dL RDW 21.6 H (11.5-15.5) % Lymphocytes # (Manual) 0.9 L (1.0-4.8) k/uL Monocytes # (Manual) 1.3 H (0-1.0) k/uL BUN 40 H (9-20) mg/dL Creatinine 4.67 H (0.66-1.25) mg/dL Glucose 104 H (74-99) mg/dL POC Glucose (mg/dL) 100 H (75-99) mg/dL Crossmatch 08/16/16 Range/Units 06:16 RBC (4.30-5.90) m/uL Hgb (13.0-17.5) gm/dL Hct (39.0-53.0) % MCHC (31.0-37.0) g/dL RDW (11.5-15.5) % Lymphocytes # (Manual) (1.0-4.8) k/uL Monocytes # (Manual) (0-1.0) k/uL BUN (9-20) mg/dL Creatinine (0.66-1.25) mg/dL Glucose (74-99) mg/dL POC Glucose (mg/dL) 102 H (75-99) mg/dL Crossmatch Microbiology - Last 24 Hours (Table) 08/01/16 16:15 Acid Fast Bacilli Smear - Final Bronchial Washings - Left Acid Fast Bacilli Culture - Preliminary Assessment and Plan Plan: Assessment: #1. End-stage renal disease maintained on hemodialysis on a Friday schedule via left upper extremity AV graft. #2. 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 #3. Left lung blood clots status post bronchoscopy 2. #4. Anemia. Status post blood transfusion on August 14. Hemoglobin improved. No signs of active bleeding. 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 Plan: Hemodialysis tomorrow with goal 2 L ultrafiltration as blood pressure tolerates. Maintain Aranesp. Continue with physical therapy. Hold antihypertensives for systolic blood pressure less than 120. Midodrine as needed. Potential discharge to rehab today.
[2016-08-16] MEDS: IPRATROPIUM-ALBUTEROL 3 ML NEB INHALATION SCH ×2 (08:47→14:27)
[2016-08-16] MEDS ORDERED: AMIODARONE 200 MG TAB PO SCH (09:00)
[2016-08-16 09:22] VITALS: RESP 16; TEMP 97.5
[2016-08-16] MEDS: METOPROLOL TARTRATE 25 MG TAB PO SCH (09:22)
[2016-08-16] MEDS: ASPIRIN 81 MG CHEW PO SCH (09:22)
[2016-08-16] MEDS: ALLOPURINOL 100 MG TAB PO SCH (09:23)
[2016-08-16] MEDS: NYSTATIN 100,000 UNIT/ML SUSP 500,000 UNIT/5 ML CUP PO SCH ×2 (09:24→12:29)
[2016-08-16] MEDS: predniSONE 5 MG TAB PO SCH (09:24)
[2016-08-16] MEDS: HYDROcodone/APAP 5-325MG 1 EACH TAB PO PRN ×2 (09:25→15:21)
--- NOTE | 2016-08-16 09:54 | XR ---
EXAMINATION TYPE: XR chest 1V portable DATE OF EXAM: 08/16/2016 7:30 AM COMPARISON: 08/13/2016 HISTORY: Postop CABG TECHNIQUE: Single frontal view of the chest is obtained. FINDINGS: Subsegmental consolidation of the left lung base. There is no pneumothorax or interstitial edema. Postoperative change involving the mediastinum. Right-sided PICC line noted. Pleural thickeni ng on the right. IMPRESSION: 1. Stable findings with no definite acute process. Consolidation likely related to atelectasis rather than pneumonia. Tiny pleural effusion or thickening also stable.
[2016-08-16] MEDS ORDERED: LISINOPRIL 2.5 MG TAB PO SCH (12:00)
[2016-08-16 12:18] LABS: Glucose,Whole Blood 119 mg/dL (75-99)
[2016-08-16] MEDS: THIAMINE 100 MG TAB PO SCH (12:28)
[2016-08-16] MEDS: FOLIC ACID 1 MG TAB PO SCH (12:29)
[2016-08-16] MEDS: MULTIVITAMINS, THERA 1 EACH TAB PO SCH (12:29)
--- NOTE | 2016-08-16 14:46 | P.PN ---
Subjective Principal diagnosis: Status post CABG This is a 80-year-old gentleman who is status post coronary artery bypass grafting surgery. Postoperative course was complicated by intraoperative bleeding requiring bronchoscopy and prolonged ventilation. He is currently extubated and is being followed on the telemetry unit. He was sitting up in the chair at the time of our examination today. Overall his appetite is improving. He seems to be getting stronger. Arrangements are currently being made for the patient to be transferred to [facility] rehab, possibly today. Blood pressure today 110/55. Arrangements being made for rehab which will take place today Objective - Vital Signs Vital signs: Vital Signs Temp 97.5 F L 08/16/16 08:00 Pulse 74 08/16/16 12:00 Resp 16 08/16/16 08:00 BP 120/62 08/16/16 12:00 Pulse Ox 100 08/16/16 12:00 Intake & Output 08/15/16 08/16/16 08/16/16 18:59 06:59 18:59 Intake Total 600 20 Output Total 0 0 Balance 600 0 20 Weight 75.5 kg 76 kg Intake: Oral 600 20 Output: Urine 0 0 Other: Voiding Method Diaper # Voids 0 0 # Bowel Movements 0 1 1 ABP, PAP, CO, CI - Last Documented Arterial Blood Pressure 156/51 Pulmonary Artery Pressure 40/30 Cardiac Output 6.4 Cardiac Index 3.3 - Exam PHYSICAL EXAMINATION: HEENT: Head is atraumatic, normocephalic. Pupils equal, round. Neck is supple. There is no elevated jugular venous pressure. HEART EXAMINATION: Heart S1, S2 normal. No murmur or gallop heard. CHEST EXAMINATION: Lungs are clear with mild diminished air entry to posterior bases. ABDOMEN: Soft, nontender. Bowel sounds are heard. No organomegaly noted. EXTREMITIES: 2+ peripheral pulses with no evidence of peripheral edema and no calf tenderness noted. NEUROLOGIC patient is awake, alert and oriented -3. . - Labs CBC & Chem 7: 08/16/16 05:54 08/16/16 05:54 Labs: Abnormal Lab Results - Last 24 Hours (Table) 08/14/16 08/15/16 08/15/16 Range/Units 11:48 16:10 21:37 RBC (4.30-5.90) m/uL Hgb (13.0-17.5) gm/dL Hct (39.0-53.0) % MCHC (31.0-37.0) g/dL RDW (11.5-15.5) % Lymphocytes # (Manual) (1.0-4.8) k/uL Monocytes # (Manual) (0-1.0) k/uL BUN (9-20) mg/dL Creatinine (0.66-1.25) mg/dL Glucose (74-99) mg/dL POC Glucose (mg/dL) 115 H 100 H (75-99) mg/dL Crossmatch See Detail 08/16/16 08/16/16 08/16/16 Range/Units 05:54 05:54 06:16 RBC 2.96 L (4.30-5.90) m/uL Hgb 8.8 L (13.0-17.5) gm/dL Hct 28.8 L (39.0-53.0) % MCHC 30.7 L (31.0-37.0) g/dL RDW 21.6 H (11.5-15.5) % Lymphocytes # (Manual) 0.9 L (1.0-4.8) k/uL Monocytes # (Manual) 1.3 H (0-1.0) k/uL BUN 40 H (9-20) mg/dL Creatinine 4.67 H (0.66-1.25) mg/dL Glucose 104 H (74-99) mg/dL POC Glucose (mg/dL) 102 H (75-99) mg/dL Crossmatch 08/16/16 Range/Units 12:16 RBC (4.30-5.90) m/uL Hgb (13.0-17.5) gm/dL Hct (39.0-53.0) % MCHC (31.0-37.0) g/dL RDW (11.5-15.5) % Lymphocytes # (Manual) (1.0-4.8) k/uL Monocytes # (Manual) (0-1.0) k/uL BUN (9-20) mg/dL Creatinine (0.66-1.25) mg/dL Glucose (74-99) mg/dL POC Glucose (mg/dL) 119 H (75-99) mg/dL Crossmatch Assessment and Plan (1) End-stage renal disease on hemodialysis Status: Acute (2) Hyperlipidemia Status: Acute (3) Hypertension Status: Acute (4) Non-STEMI (non-ST elevated myocardial infarction) Status: Acute (5) Status post aorto-coronary artery bypass graft Status: Acute (6) Diabetic foot ulcer associated with type 2 diabetes mellitus Status: Acute Plan: From cardiology's perspective, she will be transferred to rehab today. He has a follow-up appointment to come back to the office one week post discharge. DNP note has been reviewed, I agree with a documented findings and plan of care. Patient was seen and examined.
[2016-08-16 15:54] VITALS: BP 127/61; PULSE 76
--- NOTE | 2016-08-16 17:06 | P.DS ---
Providers Date of admission: 07/24/16 19:33 Attending physician: Elvie Alcaraz Consults: 07/24/16 19:55 Consult Physician Routine Consulting Provider: Yemi Duvall Consult Reason/Comments: mi Do you want consulting provider notified?: Yes, Notify in am 07/24/16 19:56 Consult Physician Routine Consulting Provider: Josselin Fernandez Consult Reason/Comments: crf Do you want consulting provider notified?: Yes, Notify in am 07/24/16 23:12 Consult Physician Routine Consulting Provider: Edinson Carey Consult Reason/Comments: Known to physician; seen in wound center - wound to left ft. Do you want consulting provider notified?: Yes 07/25/16 09:16 Consult Physician Stat Consulting Provider: Elvie Alcaraz Consult Reason/Comments: cad Do you want consulting provider notified?: Yes 07/25/16 10:51 Consult Physician Routine Consulting Provider: Tea Lucas Consult Reason/Comments: Pulmonary Management Do you want consulting provider notified?: Yes 07/25/16 11:33 Consult Physician Routine Consulting Provider: Brandyn Gordon Consult Reason/Comments: foot wound; pt is pre-op CABG Do you want consulting provider notified?: Yes 07/25/16 11:34 Consult Anesthesia Routine Consulting Provider: Anesthesia,Services Consult Reason/Comments: Cardiac Surgery Pre-Op 07/25/16 16:46 Consult Physician Routine Consulting Provider: Felix Peters Consult Reason/Comments: Nose bleed, CABG on Friday07/29/16 Do you want consulting provider notified?: Yes 07/27/16 10:47 Consult Physician Routine Consulting Provider: Brandyn Rubio Consult Reason/Comments: Right groin pseudoaneurysm Do you want consulting provider notified?: Already Contacted 07/27/16 13:36 Consult Physician Routine Consulting Provider: Irina Samaniego Consult Reason/Comments: right psuedo aneurysm Do you want consulting provider notified?: Yes 07/29/16 13:32 Consult Physician Routine Consulting Provider: Lb Alcala Consult Reason/Comments: medical managment Do you want consulting provider notified?: Already Contacted 08/08/16 14:35 Consult Physician Routine Consulting Provider: S[place] Key Consult Reason/Comments: inpt rehab Do you want consulting provider notified?: Yes Primary care physician: Stated None Hospital Course: FINAL DIAGNOSIS: 1.[Double vessel coronary artery disease, preserved left ventricular function mild to moderate aortic valve stenosis] 2.[Moderate pulmonary hypertension] 3.[Non-ST elevated myocardial infarction] 4.[End-stage renal disease on hemodialysis, Friday and Friday] 5.[Hyperlipidemia] 6.[Hypertension] 7.[Rheumatoid arthritis, with chronic steroid use] 8.[Nonhealing ulcer left foot] 9.[History of methicillin-resistant Staphylococcus aureus infection of his left arm] 10.[Nasal septal ulcer with epistaxis] 11.[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 postcardiac catheterization] 12.[Postoperative left lung collapse secondary to plugging of left mainstem bronchus] 13.[Anemia of chronic kidney disease] 14.[Postoperative acute ventilator associated pneumonia, pseudomonas in his bronchial washings.] 15.[Metabolic bone disease] 16.[Postoperative paroxysmal atrial fibrillation] PRINCIPAL PROCEDURE: 1.[Left heart catheterization without left ventriculography] 2.[Flexible nasal fiberoptic and endoscopy] 3.[Ultrasound compression pseudoaneurysm right groin] 4.[Non-aortic clamp off pump double coronary artery bypass grafting surgery using the left internal mammary artery to the left anterior descending coronary artery, and a reverse greater saphenous vein graft placed from the aorta to the posterior descending coronary artery.] 5.[Endoscopic harvesting of the right greater saphenous vein.] 6.[Intraoperative transesophageal echocardiogram and epi-aortic scanning] 7.[Intraoperative graft flow measurement using the Medistin machine.] 8.[Bronchoscopy and multiple attempts to remove left main stem and a bronchial tissue and/or blood clots and endobronchial biopsies] HISTORY OF PRESENT ILLNESS: [This is a 80-year-old gentleman who is followed by Dr. Paramjit Sage on an outpatient basis. On 07/22/2016 the patient presented to [facility] with complaints of shortness of breath and cough. The patient has a history of chronic renal failure and is chronically on dialysis Tuesdays, and Saturdays. Due to the patient's shortness of breath he had missed to dialysis treatments. During his workup at [facility] it was noted that he had positive troponins which were suggestive of a non-ST elevated myocardial infarction. The patient also had a 12-lead EKG completed which showed him to have T-wave changes in the anterior lateral leads. Subsequently an echocardiogram was completed which showed him to have an ejection fraction of 45% and evidence of mild to moderate aortic stenosis. Subsequently the patient was transferred to [facility] on 07/24/2016 for further workup and evaluation.] HOSPITAL COURSE:[The patient was admitted to the hospital and after obtaining consent the patient underwent a left heart catheterization by Dr. Duvall which demonstrated a mild ostial stenosis to his left main coronary artery, a 90 -95% stenosis to his proximal left anterior descending coronary artery followed by a 90% mid LAD lesion. It also demonstrated him to have a 70-80% stenosis to his right coronary artery with mild disease to his PDA branch. The above- mentioned studies were reviewed with the patient by Dr. Duvall and by Dr. Alcaraz and an urgent coronary artery bypass grafting surgery was recommended. Preoperatively the patient did have a less than 1 cm pseudoaneurysm to his right groin which was successfully compressed using ultrasound compression by interventional radiology. The patient also underwent a flexible nasal fiberoptic endoscopy for recurring epistaxis, performed by ENT. The nasal flexible endoscopy demonstrated a right anterior septal ulcer in the Kiesselbach 's plexus which was treated accordingly. On 07/29/2016 after obtaining consent the patient was taken to the operating room where he underwent an urgent non- aortic clamp off pump double coronary artery bypass grafting surgery using the left internal mammary artery to the left anterior descending coronary artery, and a reverse greater saphenous vein graft from the aorta to the posterior descending coronary artery. He also underwent endoscopic harvesting of the right greater saphenous vein, intraoperative transesophageal echocardiogram and epi-aortic scanning, and intraoperative graft flow measurements using the medistim machine. The surgery was performed by Dr. Alcaraz. The patient was then transferred to the cardiovascular intensive care unit where he had somewhat of a stormy recovery. Postoperatively the patient had left lung collapse secondary to plugging by blood clots in the left main stem bronchus requiring bronchoscopy which was performed by Dr. Santa. He also required prolonged intubation and mechanical ventilator support. The patient subsequently developed a postoperative acute ventilator associated pneumonia with positive sputum for pseudomonas which was treated accordingly. The patient was subsequently extubated on 08/04/2016, and was subsequently transferred to [address] [place] [address] for further monitoring and rehabilitation. The patient received regularly scheduled hemodialysis treatments which were followed by nephrology and received local wound care to his left foot ulcer followed by the wound healing center. COMPLICATIONS: [His postoperative period was complicated by prolonged intubation and mechanical ventilator support, with a positive sputum for pseudomonas which was treated accordingly. The patient also had some postoperative paroxysmal atrial fibrillation which was treated accordingly.] CONSULTATIONS: 1.[Dr. Duvall for cardiology management] 2.[Dr. Lucas for pulmonary and ventilator management] 3.[Dr. Fernandez for nephrology management] 4.[Dr. Gordon for infectious disease management] 5.[Dr. Alcala for medical management] 6.[Dr. Peters for ENT management] 7.[Dr. Carey for wound care management] 8.[Dr. Samaniego for vascular surgery management] DISCHARGE INSTRUCTIONS: 1. No driving for 4 weeks, or until physician gives their ok. 2. Hemodialysis per schedule Tuesdays and Saturdays. The patient is scheduled for dialysis tomorrow morning 08/17/2016 at 5:30 AM. No blood pressure medications are to be given predialysis, and Midodrine is to be given as scheduled predialysis. Nephrology will follow patient at the dialysis center. 3. Respiratory therapy to evaluate and treat. 4. DIONI hose are to be worn for 30 days or until physician discontinues. Contact cast to be changed every Friday at the wound healing center, with local wound care. 5. Heart hugger is to be worn 100% of the time until physician discontinues.( excepet when showering) 6. No lifting, pushing, or pulling more than 10 pounds for 12 weeks. The physician will advise of any restriction changes. 7. The patient is expected to continue the prescribed walking program. 8. Continue pain control per as needed orders. 9. Continue with incentive spirometry and splinting/heart hugger until otherwise directed by the physician. 10. Must shower daily using liquid antibacterial soap and a separate white washcloth for each individual incision. 11. Please remove Silverlon chest dressing on [default value] with routine sternal incision care thereafter. 12. Physical therapy and occupational therapy to evaluate and treat. REHAB Care: POST-OP SURGICAL PATIENTS WITH THE FOLLOWING: Coronary Artery Bypass Surgery (CABG), Mitral Valve Replacement/Repair ( MVR), Aortic Valve Replacement /Repair (AVR) RN TO CONTINUE EDUCATION FROM ``ROAD TO A [facility] HEART PATIENT EDUCATION MANUAL (GIVEN TO PATIENT IN THE HOSPITAL) MEDICATION RECONCILIATION WITH EDUCATION NEEDED EMPHASIZE IMPORTANCE OF WEARING BREAST SUPPORT/HEART HUGGER ENCOURAGE USE OF INCENTIVE SPIROMETER 10 X EVERY HOUR WHILE AWAKE ENCOURAGE UTILIZATION OF LOWER EXTREMITY COMPRESSION STOCKINGS/DIONI HOSE and ELEVATE LEGS ABOVE LEVEL OF HEART WHILE AT REST. ENCOURAGE AMBULATION 3-5x/day INCREASING TOLERATES, WHILE AVOID EXTREMES IN TEMPERATURE LABORATORY: CBC, CMP TO BE DRAWN ON THE THIRD DAY post discharge, 08/19/2016 ( RAN STAT) FAX RESULTS TO [phone]. HEALTH PARAMETERS: WEIGHT: NOTIFY MD OF WEIGHT GAIN OF 2 LBS IN 24 HOURS OR 5 LBS IN ONE WEEK HR: NOTIFY MD OF HR <55 BPM OR HR>100 BPM BP: NOTIFY MD IF BP <90/55 OR BP>140/100 O2 SAT: NOTIFY MD IF PO2<93% ON ROOM AIR REPORTs TO GUN PROFILER AND CARDIOVASCULAR SURGEON THE FIRST WEEK OF CARE AND THEN BI-WEEKLY. PLEASE ADDITIONALLY COMMUNICATE ANY ABNORMALS AND NEW FINDINGS TO THE SURGEONS OFFICE. [phone] Plan - Discharge Summary New Discharge Prescriptions: HYDROcodone/APAP 5-325MG [[place] 5-325] 1 each PO Q4HR PRN #30 tab PRN Reason: Pain Discharge Medication List Aspirin [Adult Low Dose Aspirin EC] 81 mg PO DAILY 02/10/15 [History] Allopurinol [Zyloprim] 100 mg PO DAILY tab 08/16/16 [Rx] Amiodarone [Cordarone] 200 mg PO DAILY tab 08/16/16 [Rx] Bisacodyl [Dulcolax] 10 mg RECTAL DAILY PRN #0 supp 08/16/16 [Rx] Calcium Acetate [PhosLo] 667 mg PO TID-W/MEALS cap 08/16/16 [Rx] Darbepoetin Kevin [Aranesp] 40 mcg SQ Q7D syringe 08/16/16 [Rx] Folic Acid 1 mg PO DAILY@1200 tab 08/16/16 [Rx] HYDROcodone/APAP 5-325MG [[place] 5-325] 1 each PO Q4HR PRN #30 tab 08/16/16 [Rx] Heparin Sodium,Porcine [Heparin Sodium] 5,000 unit SQ Q8HR vial 08/16/16 [Rx] INSULIN LISPRO (humaLOG) [humaLOG (formulary)] 0 unit SQ ACHS vial 08/16/16 [Rx ] Lisinopril [Zestril] 2.5 mg PO DAILY@1200 tab 08/16/16 [Rx] Magnesium Hydroxide [Milk of Magnesia Concentrate] 2,400 mg PO BID PRN #0 ml [Rx] Metoprolol Tartrate [Lopressor] 25 mg PO BID tab 08/16/16 [Rx] Midodrine [ProAmatine] 10 mg PO AC-TID #0 tab 08/16/16 [Rx] Multivitamins, Thera [Multivitamin (formulary)] 1 each PO DAILY@1200 tab [Rx] Pantoprazole [Protonix] 40 mg PO AC-BRKFST tablet. 08/16/16 [Rx] Sennosides-Docusate Sodium [Senokot-S] 2 each PO HS tab 08/16/16 [Rx] Thiamine [Vitamin B-1] 100 mg PO DAILY@1200 tab 08/16/16 [Rx] predniSONE 5 mg PO DAILY tab 08/16/16 [Rx] Follow up Appointment(s)/Referral(s): Josselin Fernandez MD [STAFF PHYSICIAN] - 1 Week (schedule for dialysis Friday, , Friday.) Paramjit Sage DO [STAFF PHYSICIAN] - 1 Week (To follow at [facility] ) Elvie Alcaraz MD [STAFF PHYSICIAN] - 08/30/16 10:30 am Yemi Duvall MD [STAFF PHYSICIAN] - 08/29/16 3:45 pm Tea Lucas MD [STAFF PHYSICIAN] - 08/28/16 1:30 pm
--- NOTE | 2016-08-16 17:31 | P.PN ---
Progress Note - Text CV Surgery Nursing Principal diagnosis: Non-ST elevation myocardial infarction. POD #21 flexible nasal fiberoptic endoscopy POD #18 non-aortic clamp off pump double coronary artery bypass grafting x2 using the left internal mammary artery to the left anterior descending artery and reverse saphenous vein graft from the aorta to the posterior descending artery. Endoscopic harvesting of the right greater saphenous vein. Intraoperative transesophageal echocardiogram and epi-aortic scanning. Intraoperative graft flow measurements using the Medistim machine. Pt had intraparenchymal hemorrhage with increase oxygen demand after surgery requiring bronchoscopy. POD #15 bronchoscopy and bronchial alveolar lavage with bronchial washings demonstrate infection with pseudomonas. He has been treated with a course of Zosyn which was followed by Dr. Gordon from infectious disease. Patient awake and alert, oriented 3. No distress noted, patient complaining of generalized weakness although feels like he is getting stronger. Denies complaints of pain at this time. He is sitting up to the bedside chair. Vital Signs: Afebrile Vital Signs - 24 hr 08/15/16 08/15/16 08/15/16 12:00 15:46 19:45 Temperature 97.2 F L Pulse Rate 80 Pulse Rate [ 87 Bilateral Radial] Pulse Rate [ Pulse Oximetery ] Respiratory 16 16 Rate Blood Pressure 120/67 106/55 [Right Arm] O2 Sat by Pulse 98 98 Oximetry 08/15/16 08/15/16 08/16/16 19:52 20:00 00:00 Temperature 97.2 F L 97.8 F Pulse Rate 80 Pulse Rate [ 79 Bilateral Radial] Pulse Rate [ 88 79 Pulse Oximetery ] Respiratory 18 16 Rate Blood Pressure 139/77 142/71 [Right Arm] O2 Sat by Pulse 97 100 Oximetry 08/16/16 08/16/16 08/16/16 04:00 08:00 08:47 Temperature 97.3 F L 97.5 F L Pulse Rate 90 Pulse Rate [ 91 Bilateral Radial] Pulse Rate [ 75 Pulse Oximetery ] Respiratory 18 16 Rate Blood Pressure 137/60 96/54 [Right Arm] O2 Sat by Pulse 97 98 Oximetry 08/16/16 08:55 Temperature Pulse Rate 90 Pulse Rate [ Bilateral Radial] Pulse Rate [ Pulse Oximetery ] Respiratory Rate Blood Pressure [Right Arm] O2 Sat by Pulse Oximetry Labs: Short CBC 08/16/16 Range/Units 05:54 WBC 9.4 (3.8-10.6) k/uL Hgb 8.8 L (13.0-17.5) gm/dL Hct 28.8 L (39.0-53.0) % Plt Count 198 (150-450) k/uL [facility] 08/16/16 05:54 Sodium 140 Potassium 3.9 Chloride 101 Carbon Dioxide 27 BUN 40 H Creatinine 4.67 H Glucose 104 H Calcium 9.0 Lungs: Diminished bilateral bases, essentially clear to his upper lobes. Respirations are symmetrical and unlabored. O2 sat: 98% on room air. I/S: 1500 mL, reviewed with the patient importance of using his incentive spirometry every hour while awake. Patient did give a good return demonstration on his incentive spirometry. Heart: S1S2, regular rhythm and rate, positive for systolic murmur. Remote telemetry showing normal sinus rhythm heart rate 81. Sternum stable, chest incision clean, dry and well approximated. No drainage noted. Heart hugger in place. Patient is demonstrated proper use of his heart hugger. Right leg incisions clean dry and well approximated. No drainage noted. knee-high DIONI hose and sequential compression device in place right lower extremity. Left lower leg with contact cast and place. Abdomen: Soft, Positive bowel sounds present in all 4 quadrants. The patient had a bowel movement yesterday 08/15/2016. CBGs: 98 133 mg/dL in the last 24 hours. U/O: hemodialysis dependent, patient's left upper extremity AV fistula with positive bruit, positive thrill. The patient had hemodialysis yesterday 2016 with 1.3 L removed. 24 hr Total: Intake & Output 08/14/16 08/15/16 08/16/16 08/17/16 06:59 06:59 06:59 06:59 Intake Total 150 330 600 Output Total 0 Balance 150 330 600 Weight 81.5 kg 75.5 kg 76 kg Active Medications Hydrocodone Bitart/Acetaminophen ([place] 5-325) 1 each PO Q4HR PRN PRN Reason: Pain Last Admin: 08/16/16 09:25 Dose: 1 each Albuterol/Ipratropium (Duoneb 0.5 Mg-3 Mg/3 Ml Soln) 3 ml INHALATION RT-Q2H PRN PRN Reason: Shortness Of Breath Or Wheezing Albuterol/Ipratropium (Duoneb 0.5 Mg-3 Mg/3 Ml Soln) 3 ml INHALATION RT-QID [facility] Last Admin: 08/16/16 08:47 Dose: 3 ml Allopurinol (Zyloprim) 100 mg PO DAILY [facility] Last Admin: 08/16/16 09:23 Dose: 100 mg Amiodarone HCl (Cordarone) 200 mg PO DAILY [facility] Last Admin: 08/16/16 09:23 Dose: 200 mg Aspirin (Aspirin) 81 mg PO DAILY [facility] Last Admin: 08/16/16 09:22 Dose: 81 mg Bisacodyl (Dulcolax) 10 mg RECTAL DAILY PRN PRN Reason: Constipation Calcium Acetate (Phoslo) 667 mg PO TID-W/MEALS [facility] Last Admin: 08/16/16 06:30 Dose: 667 mg Darbepoetin Kevin (Aranesp) 40 mcg SQ Q7D [facility] Last Admin: 08/15/16 18:13 Dose: 40 mcg Diphenoxylate HCl/Atropine (Lomotil) 0.5 each PO QID PRN PRN Reason: Diarrhea Last Admin: 08/16/16 09:23 Dose: 0.5 each Folic Acid (Folic Acid) 1 mg PO DAILY@1200 [facility] Last Admin: 08/15/16 12:12 Dose: 1 mg Heparin Sodium (Porcine) (Heparin) 5,000 unit SQ Q8HR [facility] Last Admin: 08/16/16 09:23 Dose: 5,000 unit Hydralazine HCl (Apresoline) 10 mg IVP Q6HR PRN PRN Reason: Blood Pressure - High Last Admin: 08/06/16 10:27 Dose: 10 mg Insulin Human Lispro (Humalog) 0 unit SQ ACHS [facility] PRN Reason: Protocol Last Admin: 08/16/16 06:28 Dose: Not Given Lisinopril (Zestril) 2.5 mg PO DAILY@1200 [place] Magnesium Hydroxide (Milk Of Magnesia) 2,400 mg PO BID PRN PRN Reason: Constipation Metoprolol Tartrate (Lopressor) 25 mg PO BID [facility] Last Admin: 08/16/16 09:22 Dose: Not Given Midodrine (Proamatine) 10 mg PO AC-TID [facility] Last Admin: 08/16/16 06:29 Dose: 10 mg Multivitamins (Theragran) 1 each PO DAILY@1200 [facility] Last Admin: 08/15/16 12:12 Dose: 1 each Nystatin (Mycostatin Oral Susp) 500,000 unit PO QID [facility] Last Admin: 08/16/16 09:24 Dose: 500,000 unit Ondansetron HCl (Zofran) 4 mg IVP Q6HR PRN PRN Reason: Nausea And Vomiting Pantoprazole Sodium (Protonix) 40 mg PO AC-BRKFST [facility] Last Admin: 08/16/16 06:30 Dose: 40 mg Prednisone () 5 mg PO DAILY [facility] Last Admin: 08/16/16 09:24 Dose: 5 mg Senna/Docusate Sodium (Senokot-S) 2 each PO HS [facility] Last Admin: 08/15/16 22:01 Dose: 2 each Sodium Chloride (Saline Flush) 10 ml IV BID [facility] Last Admin: 08/15/16 21:42 Dose: 10 ml Sodium Chloride (Saline Flush) 20 ml IV Q4HR PRN PRN Reason: PICC Line Sodium Chloride (Saline Flush) 10 ml IV WEEKLY [facility] Last Admin: 08/16/16 09:24 Dose: Not Given Sodium Chloride (Saline Flush) 10 ml IV Q4HR PRN PRN Reason: PICC Line Sodium Chloride (Saline Flush) 10 ml IV Q12HR [facility] Last Admin: 08/16/16 09:24 Dose: Not Given Thiamine HCl (Vitamin B-1) 100 mg PO DAILY@1200 [facility] Last Admin: 08/15/16 12:12 Dose: 100 mg Plan: 1. Continue aspirin, Lipitor, heparin SQ, lisinopril (decreased to 2.5 mg by mouth daily at noon yesterday 08/15/2016), lopressor and amiodarone. 2. Nephrology following for hemodialysis management. 3. PT/OT to work with patient, out of bed to chair 3 times a day as tolerated. 4. Dr. Gordon from infectious disease is following. 5. Encourage incentive spirometry use every hour while awake. 6. Will continue to monitor labs, chest x-rays. 7. Insulin management per primary service. 8. GI/DVT prophylaxis. 9. His contact cast to his left leg was changed on 08/14/2016 and is due to be changed on 08/21/2016. 10. Dr. Lucas for pulmonary management. 11. Case management/social work on for discharge planning. Discharge plan is to discharge to [facility] today for further rehabilitation needs
== END 2016-08-16 16:15 | DRG 233 ==
LOC: 6SEL 19:33 → 6ICU 07-29 07:29 → 6SEL 08-09 10:03
PROVIDERS: ADMIT Hospitalist; ATTEND Surgery
PROC: 4A023N7 Measurement of Cardiac Sampling and Pressure, Left Heart, Percutaneous Approach (ICD-10-PCS; 2016-07-25)
PROC: B2111ZZ Fluoroscopy of Multiple Coronary Arteries using Low Osmolar Contrast (ICD-10-PCS; 2016-07-25)
PROC: 5A1D60Z (ICD-10-PCS; 2016-07-25)
PROC: 0WJQ8ZZ Inspection of Respiratory Tract, Via Natural or Artificial Opening Endoscopic Approach (ICD-10-PCS; 2016-07-26)
PROC: 2Y41X5Z Packing of Nasal Region using Packing Material (ICD-10-PCS; 2016-07-28)
PROC: 02100Z9 Bypass Coronary Artery, One Artery from Left Internal Mammary, Open Approach (ICD-10-PCS; 2016-07-29)
PROC: 06BP0ZZ Excision of Right Saphenous Vein, Open Approach (ICD-10-PCS; 2016-07-29)
PROC: 5A1955Z Respiratory Ventilation, Greater than 96 Consecutive Hours (ICD-10-PCS; 2016-07-29)
PROC: 0BH17EZ Insertion of Endotracheal Airway into Trachea, Via Natural or Artificial Opening (ICD-10-PCS; 2016-07-29)
PROC: 30243K1 Transfusion of Nonautologous Frozen Plasma into Central Vein, Percutaneous Approach (ICD-10-PCS; 2016-07-29)
PROC: 30243N1 Transfusion of Nonautologous Red Blood Cells into Central Vein, Percutaneous Approach (ICD-10-PCS; 2016-07-29)
PROC: 30243R1 Transfusion of Nonautologous Platelets into Central Vein, Percutaneous Approach (ICD-10-PCS; 2016-07-29)
PROC: 021009W Bypass Coronary Artery, One Artery from Aorta with Autologous Venous Tissue, Open Approach (ICD-10-PCS; principal; 2016-07-29 08:00)
PROC: 0B9J8ZX Drainage of Left Lower Lung Lobe, Via Natural or Artificial Opening Endoscopic, Diagnostic (ICD-10-PCS; 2016-08-01)
PROC: 0B9G8ZX Drainage of Left Upper Lung Lobe, Via Natural or Artificial Opening Endoscopic, Diagnostic (ICD-10-PCS; 2016-08-01)
PROC: 0B9H8ZX Drainage of Lung Lingula, Via Natural or Artificial Opening Endoscopic, Diagnostic (ICD-10-PCS; 2016-08-01)
PROC: 0BB78ZX Excision of Left Main Bronchus, Via Natural or Artificial Opening Endoscopic, Diagnostic (ICD-10-PCS; 2016-08-01)
PROC: 02HV33Z Insertion of Infusion Device into Superior Vena Cava, Percutaneous Approach (ICD-10-PCS; 2016-08-02)
DX: I21.4 Non-ST elevation (NSTEMI) myocardial infarction (principal); G93.40 Encephalopathy, unspecified; J96.01 Acute respiratory failure with hypoxia; I50.23 Acute on chronic systolic (congestive) heart failure; N18.6 End stage renal disease; J95.851 Ventilator associated pneumonia; E87.3 Alkalosis; T17.890A Other foreign object in other parts of respiratory tract causing asphyxiation, initial encounter; I13.2 Hypertensive heart and chronic kidney disease with heart failure and with stage 5 chronic kidney disease, or end stage renal disease; E87.1 Hypo-osmolality and hyponatremia; J98.11 Atelectasis; R04.89 Hemorrhage from other sites in respiratory passages; J98.19 Other pulmonary collapse; E88.89 Other specified metabolic disorders; D69.6 Thrombocytopenia, unspecified; E11.22 Type 2 diabetes mellitus with diabetic chronic kidney disease; E11.621 Type 2 diabetes mellitus with foot ulcer; E86.1 Hypovolemia; I48.0 Paroxysmal atrial fibrillation; E83.39 Other disorders of phosphorus metabolism; B96.5 Pseudomonas (aeruginosa) (mallei) (pseudomallei) as the cause of diseases classified elsewhere; D53.9 Nutritional anemia, unspecified; D63.1 Anemia in chronic kidney disease; E78.5 Hyperlipidemia, unspecified; E87.5 Hyperkalemia; E88.09 Other disorders of plasma-protein metabolism, not elsewhere classified; I25.10 Atherosclerotic heart disease of native coronary artery without angina pectoris; I25.2 Old myocardial infarction; I27.2 Other secondary pulmonary hypertension; I72.4 Aneurysm of artery of lower extremity; I95.81 Postprocedural hypotension; J31.0 Chronic rhinitis; J34.2 Deviated nasal septum; Y84.8 Other medical procedures as the cause of abnormal reaction of the patient, or of later complication, without mention of misadventure at the time of the procedure; M06.9 Rheumatoid arthritis, unspecified; M10.9 Gout, unspecified; M19.90 Unspecified osteoarthritis, unspecified site; R04.0 Epistaxis; R26.9 Unspecified abnormalities of gait and mobility; M25.511 Pain in right shoulder; J34.0 Abscess, furuncle and carbuncle of nose; I08.0 Rheumatic disorders of both mitral and aortic valves; E11.65 Type 2 diabetes mellitus with hyperglycemia; Z79.52 Long term (current) use of systemic steroids; Z79.82 Long term (current) use of aspirin; Z79.899 Other long term (current) drug therapy; Z86.14 Personal history of Methicillin resistant Staphylococcus aureus infection; Z99.2 Dependence on renal dialysis; Z96.651 Presence of right artificial knee joint; Z87.891 Personal history of nicotine dependence; Z82.49 Family history of ischemic heart disease and other diseases of the circulatory system
CPT/HCPCS: 29445; 31624; 31625; 31645; 36430; 36569; 36620; 71010; 71020; 71250; 76936; 76937; 80048; 80053; 80061; 80074; 80202; 81001; 82272; 82330; 82805; 83036; 83540; 83550; 83735; 83880; 84100; 84443; 85025; 85027; 85384; 85520; 85610; 85730; 86255; 86704; 86706; 86850; 86891; 86900; 86901; 86920; 87040; 87070; 87077; 87086; 87102; 87116; 87186; 87205; 87206; 87252; 87324; 87340; 87496; 87498; 87502; 87529; 87798; 88305; 90935; 93458; 93880; 93970; 93975; 94002; 94003; 94150; 94640; 94660; 94760

== ENCOUNTER → 2017-10-17 | Outpatient (CLI) | payer MEDICARE, BC ==
--- NOTE | 2017-10-17 11:43 | XR ---
EXAMINATION TYPE: XR chest 2V DATE OF EXAM: 10/17/2017 COMPARISON: 08/16/2016 HISTORY: 82-year-old male clearance for MRI, rule out epicardial leads TECHNIQUE: Frontal and lateral views FINDINGS: Median sternotomy wires are present with postoperative clips. Heart remains borderline enlarged. Righ t-sided IJ catheter has its tip at the lower IJ level. Diffuse interstitial prominence. Small pleural effusions. Hyperinflation. No retained epicardial pacer leads seen. IMPRESSION: 1. Status post median sternotomy with post-CABG changes. No retained epicardial pacer leads. Clear fo r MRI. 2. Correlate for mild CHF with small pleural effusions and pulmonary vascular congestion.
== END | disposition home or self-care (01) ==
LOC: RADXRMAIN 11:06
PROVIDERS: ATTEND Orthopaedic Surgery
DX: Z09 Encounter for follow-up examination after completed treatment for conditions other than malignant neoplasm (principal); Z95.1 Presence of aortocoronary bypass graft; Z98.890 Other specified postprocedural states
CPT/HCPCS: 71046

== ENCOUNTER 2018-10-21 10:01 | Inpatient (IN) | payer MEDICARE, OTHER ==
--- NOTE | 2018-10-21 10:32 | ED ---
General Adult HPI - General Chief complaint: GI Bleed Stated complaint: rectal bleeding Time Seen by Provider: 10/21/18 10:05 Source: patient, EMS, RN notes reviewed, old records reviewed Mode of arrival: EMS Limitations: no limitations - History of Present Illness Initial comments: 83-year-old male patient with extensive past medical history including coronary artery disease, CHF, yesterday on hemodialysis, hypertension, presents to ED with chief complaint of rectal bleeding. Patient presented [facility] and was reported by nursing staff that he does have dark tar-like stools. Patient is currently being treated through a PICC line for a skin erosion wound on his gluteal region. Patient is currently being treated with kefzol. Patient denies any other complaints at this time. Denies any chest pain shortness of breath abdominal pain nausea vomiting or diarrhea. Systemic: Pt denies fatigue, fever/chills, rash. Pt denies weakness, night sweats, weight loss. Neuro: Pt denies headache, visual disturbances, syncope or pre-syncope. HEENT: Pt denies ocular discharge or irritation, otalgia, rhinorrhea, pharyngitis or notable lymphadenopathy. Cardiopulmonary: Pt denies chest pain, SOB, heart palpitations, dyspnea on exertion. Abdominal/GI: Pt denies abdominal pain, n/v/d. : Pt denies dysuria, burning w/ urination, frequency/urgency. Denies new onset urinary or bowel incontinence. MSK: Pt denies myalgia, loss of strength or function in extremities. Neuro: Pt denies new onset weakness, paresthesias. - Related Data Home Medications Medication Instructions Recorded Confirmed Aspirin [Adult Low Dose Aspirin EC] 81 mg PO DAILY@1700 02/10/15 10/21/18 Atorvastatin [Lipitor] 10 mg PO DAILY 10/07/17 10/21/18 Allopurinol [Zyloprim] 100 mg PO DAILY 10/21/18 10/21/18 Amiodarone [Cordarone] 100 mg PO DAILY 10/21/18 10/21/18 Bisacodyl [Dulcolax] 10 mg RECTAL DAILY PRN 10/21/18 10/21/18 Calcium Acetate [PhosLo] 667 mg PO TID@0800,1200,1700 10/21/18 10/21/18 Cefazolin/Detrose 1-4gm/50ml 50 ml IV BID 10/21/18 10/21/18 Epoetin Kevin [Epogen] 8,000 unit SQ TUTHSA 10/21/18 10/21/18 Ferrous Sulfate [Feosol] 325 mg PO DAILY@1700 10/21/18 10/21/18 Folic Acid 1 mg PO DAILY@1700 10/21/18 10/21/18 Hydrocodone/Acetaminophen [[place] 1 tab PO Q6H PRN 10/21/18 10/21/18 10-325] Liquacel (Unknown Dose) 1 dose PO BID@0800,1700 10/21/18 10/21/18 Magnesium Hydroxide [Milk of 2,400 mg PO DAILY PRN 10/21/18 10/21/18 Magnesia] Metoprolol Tartrate [Lopressor] 12.5 mg PO BID@0800,1700 10/21/18 10/21/18 Miconazole Af Powder 2% 1 applic TOPICAL BID 10/21/18 10/21/18 Midodrine HCl [ProAmatine] 10 mg PO DAILY PRN 10/21/18 10/21/18 Midodrine HCl [ProAmatine] 10 mg PO TID@0800,1200,1700 10/21/18 10/21/18 Multivitamins, Thera [Multivitamin 1 tab PO DAILY@169910/21/18 10/21/18 (formulary)] Na Phos,M-B/Na Phos,Di-Ba [Fleet 133 ml RECTAL DAILY PRN 10/21/18 10/21/18 Adult] Previous Rx's Medication Instructions Recorded Pantoprazole [Protonix] 40 mg PO AC-BRKFST tablet. 08/16/16 predniSONE 5 mg PO DAILY tab 08/16/16 Allergies Allergy/AdvReac Type Severity Reaction Status Date / Time No Known Allergies Allergy Verified 10/21/18 10:28 Review of Systems ROS Statement: Those systems with pertinent positive or pertinent negative responses have been documented in the HPI. ROS Other: All systems not noted in ROS Statement are negative. 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 , VRE RIGHT FOOT Past Surgical History: Coronary Bypass/CABG, Heart Catheterization, Joint Replacement, Orthopedic Surgery, Tonsillectomy Additional Past Surgical History / Comment(s): right knee replacement, L arm dialysis shunt revised, lithotripsy, CABG 07/2016, jose cataracts Past Anesthesia/Blood Transfusion Reactions: No Reported Reaction Past Psychological History: No Psychological Hx Reported Smoking Status: Former smoker Past Alcohol Use History: None Reported Past Drug Use History: None Reported - Past Family History Father Family Medical History: No Reported History Additional Family Medical History / Comment(s): father in a car accident Mother Family Medical History: No Reported History Additional Family Medical History / Comment(s): mother of old age General Exam - General Exam Comments Initial Comments: Constitutional: NAD, AOX3, Pt has pleasant affect. HEENT: NC/AT, trachea midline, neck supple, no lymphadenopathy. Posterior pharynx non erythematous, without exudates. External ears appear normal, without discharge. Mucous membranes moist. Eyes PERRLA, EOM intact. There is no scleral icterus. No pallor noted. Cardiopulmonary: RRR, no murmurs, rubs or gallops, no JVD noted. Lungs CTAB in anterior and posterior cotto. No peripheral edema. Abdominal exam: Abdomen soft and non-distended. Abdomen non-tender to palpation in all 4 quadrants. Bowel sounds active in LLQ. No hepatosplenomegaly. No ecchymosis Neuro: CN II-XII grossly intact. No nuchal rigidity. No raccon eyes, no shaffer sign, no hemotympanum. No cervical spinal tenderness. MSK: Superficial skin erosion noted on gluteal region. Melena stools noted. No posterior calf tenderness bilaterally, homans sign negative bilaterally. Posterior tibialis and radial pulse +2 bilaterally. Sensation intact in upper and lower extremities. Full active ROM in upper and lower extremities, 5/5 stregnth. Limitations: no limitations Course Vital Signs 10/21/18 10/21/18 10/21/18 10:06 12:11 12:47 Temperature 97.7 F Pulse Rate 76 73 71 Respiratory 18 18 18 Rate Blood Pressure 102/66 94/34 95/56 O2 Sat by Pulse 97 97 97 Oximetry Medical Decision Making - Medical Decision Making 83-year-old male patient with extensive past medical history including coronary artery disease, CHF, yesterday on hemodialysis, hypertension, presents to ED with chief complaint of rectal bleeding. Patient presented [facility] and was reported by nursing staff that he does have dark tar-like stools. Patient is currently being treated through a PICC line for a skin erosion wound on his gluteal region. Patient is currently being treated with kefzol. Patient denies any other complaints at this time. Denies any chest pain shortness of breath abdominal pain nausea vomiting or diarrhea. Patient vital signs stable, afebrile. Physical exam displayed dark melena stools. Investigations revealed hemoglobin of 7.0. This around patient's baseline. Coagulation studies nonimpressive. CMP revealed chronic kidney disease, mildly elevated glucose, mildly elevated AST and alk phos. Troponin 0.327. Lactic a violeta 3.1. Occult blood is positive. EKG unchanged from prior. No chest pain on reexamination patient. Troponin elevated in context of ESRD, cortney lbe trended. Patient will be admitted for GI bleed to Dr. Alcala, case discussed in depth with Dr. Medina. - Lab Data Result diagrams: 10/21/18 10:27 10/21/18 10:27 Lab Results 10/21/18 10/21/18 10/21/18 Range/Units 10:25 10:27 10:27 WBC 9.6 (3.8-10.6) k/uL RBC 2.58 L (4.30-5.90) m/uL Hgb 7.0 L (13.0-17.5) gm/dL Hct 23.2 L (39.0-53.0) % MCV 90.0 (80.0-100.0) fL MCH 27.3 (25.0-35.0) pg MCHC 30.3 L (31.0-37.0) g/dL RDW 18.7 H (11.5-15.5) % Plt Count 188 (150-450) k/uL Neutrophils % 83 % Lymphocytes % 7 % Monocytes % 6 % Eosinophils % 1 % Basophils % 0 % Neutrophils # 8.0 H (1.3-7.7) k/uL Lymphocytes # 0.7 L (1.0-4.8) k/uL Monocytes # 0.5 (0-1.0) k/uL Eosinophils # 0.1 (0-0.7) k/uL Basophils # 0.0 (0-0.2) k/uL Hypochromasia Marked Poikilocytosis Moderate Anisocytosis Slight PT (9.0-12.0) sec INR (<1.2) APTT (22.0-30.0) sec Sodium 136 L (137-145) mmol/L Potassium 4.1 (3.5-5.1) mmol/L Chloride 101 (98-107) mmol/L Carbon Dioxide 27 (22-30) mmol/L Anion Gap 8 mmol/L BUN 46 H (9-20) mg/dL Creatinine 4.17 H (0.66-1.25) mg/dL Est GFR (CKD-EPI)AfAm 14 (>60 ml/min/1.73 sqM) Est GFR (CKD-EPI)NonAf 12 (>60 ml/min/1.73 sqM) Glucose 199 H (74-99) mg/dL Lactic Ac Sepsis Rflx Plasma Lactic Acid Jac 3.1 H* (0.7-2.0) mmol/L Calcium 7.9 L (8.4-10.2) mg/dL Total Bilirubin 0.4 (0.2-1.3) mg/dL AST 63 H (17-59) U/L ALT 10 L (21-72) U/L Alkaline Phosphatase 209 H (38-126) U/L Troponin I (0.000-0.034) ng/mL Total Protein 4.2 L (6.3-8.2) g/dL Albumin 2.0 L (3.5-5.0) g/dL Stool Occult Blood (Negative) Blood Type Blood Type Recheck Antibody Screen Spec Expiration Date 10/21/18 10/21/18 10/21/18 Range/Units 10:27 10:27 10:27 WBC (3.8-10.6) k/uL RBC (4.30-5.90) m/uL Hgb (13.0-17.5) gm/dL Hct (39.0-53.0) % MCV (80.0-100.0) fL MCH (25.0-35.0) pg MCHC (31.0-37.0) g/dL RDW (11.5-15.5) % Plt Count (150-450) k/uL Neutrophils % % Lymphocytes % % Monocytes % % Eosinophils % % Basophils % % Neutrophils # (1.3-7.7) k/uL Lymphocytes # (1.0-4.8) k/uL Monocytes # (0-1.0) k/uL Eosinophils # (0-0.7) k/uL Basophils # (0-0.2) k/uL Hypochromasia Poikilocytosis Anisocytosis PT 13.6 H (9.0-12.0) sec INR 1.3 H (<1.2) APTT 30.8 H (22.0-30.0) sec Sodium (137-145) mmol/L Potassium (3.5-5.1) mmol/L Chloride (98-107) mmol/L Carbon Dioxide (22-30) mmol/L Anion Gap mmol/L BUN (9-20) mg/dL Creatinine (0.66-1.25) mg/dL Est GFR (CKD-EPI)AfAm (>60 ml/min/1.73 sqM) Est GFR (CKD-EPI)NonAf (>60 ml/min/1.73 sqM) Glucose (74-99) mg/dL Lactic Ac Sepsis Rflx Plasma Lactic Acid Jac (0.7-2.0) mmol/L Calcium (8.4-10.2) mg/dL Total Bilirubin (0.2-1.3) mg/dL AST (17-59) U/L ALT (21-72) U/L Alkaline Phosphatase (38-126) U/L Troponin I 0.327 H* (0.000-0.034) ng/mL Total Protein (6.3-8.2) g/dL Albumin (3.5-5.0) g/dL Stool Occult Blood Positive (Negative) Blood Type Blood Type Recheck Antibody Screen Spec Expiration Date 10/21/18 10/21/18 Range/Units 10:27 13:25 WBC (3.8-10.6) k/uL RBC (4.30-5.90) m/uL Hgb (13.0-17.5) gm/dL Hct (39.0-53.0) % MCV (80.0-100.0) fL MCH (25.0-35.0) pg MCHC (31.0-37.0) g/dL RDW (11.5-15.5) % Plt Count (150-450) k/uL Neutrophils % % Lymphocytes % % Monocytes % % Eosinophils % % Basophils % % Neutrophils # (1.3-7.7) k/uL Lymphocytes # (1.0-4.8) k/uL Monocytes # (0-1.0) k/uL Eosinophils # (0-0.7) k/uL Basophils # (0-0.2) k/uL Hypochromasia Poikilocytosis Anisocytosis PT (9.0-12.0) sec INR (<1.2) APTT (22.0-30.0) sec Sodium (137-145) mmol/L Potassium (3.5-5.1) mmol/L Chloride (98-107) mmol/L Carbon Dioxide (22-30) mmol/L Anion Gap mmol/L BUN (9-20) mg/dL Creatinine (0.66-1.25) mg/dL Est GFR (CKD-EPI)AfAm (>60 ml/min/1.73 sqM) Est GFR (CKD-EPI)NonAf (>60 ml/min/1.73 sqM) Glucose (74-99) mg/dL Lactic Ac Sepsis Rflx Y Plasma Lactic Acid Jac (0.7-2.0) mmol/L Calcium (8.4-10.2) mg/dL Total Bilirubin (0.2-1.3) mg/dL AST (17-59) U/L ALT (21-72) U/L Alkaline Phosphatase (38-126) U/L Troponin I (0.000-0.034) ng/mL Total Protein (6.3-8.2) g/dL Albumin (3.5-5.0) g/dL Stool Occult Blood (Negative) Blood Type B Positive Blood Type Recheck No Antibody Screen NEGATIVE Spec Expiration Date 10/24/2018 4817 - EKG Data -: EKG Interpreted by Me (and Dr. Medina) EKG Comments: Ventricular rate 76, painful 176, QRS 88, QT/QTC 432/486. Normal sinus rhythm, T wave abnormality consider inferolateral ischemia, prolonged QT, no significant change from prior EKG. Disposition Clinical Impression: GI bleed Disposition: ADMITTED IP TO THIS HOSP Condition: Serious Referrals: Paramjit Sage DO [Primary Care Provider] - 1-2 days
[2018-10-21 10:54] LABS: Anisocytosis Slight; Basophils % (A) 0 %; Eosinophils # (A) 0.1 k/uL (0-0.7); Eosinophils % (A) 1 %; HCT 23.2 % (39.0-53.0); Hypochromasia Marked; Lymphocytes # (A) 0.7 k/uL (1.0-4.8); Lymphocytes % (A) 7 %; MCH 27.3 pg (25.0-35.0); MCHC 30.3 g/dL (31.0-37.0); Monocytes # (A) 0.5 k/uL (0-1.0); Monocytes % (A) 6 %; Neutrophils % (A) 83 %; Platelet Count 188 k/uL (150-450); Poikilocytosis Moderate; RBC 2.58 m/uL (4.30-5.90); RDW 18.7 % (11.5-15.5); WBC 9.6 k/uL (3.8-10.6)
[2018-10-21] MEDS ORDERED: PANTOPRAZOLE 40 MG/10 ML VIAL IVP ONE (11:05)
[2018-10-21 11:06] LABS: Calcium 7.9 mg/dL (8.4-10.2); Potassium 4.1 mmol/L (3.5-5.1); Total Bilirubin 0.4 mg/dL (0.2-1.3); Total Protein 4.2 g/dL (6.3-8.2)
[2018-10-21 11:34] LABS: INR 1.3 (<1.2); Partial Thromboplastin Time 30.8 sec (22.0-30.0); Prothrombin Time 13.6 sec (9.0-12.0)
[2018-10-21] MEDS ORDERED: SODIUM CHLORIDE 0.9% 500 ML 500 ML IV STA (12:20)
[2018-10-21] MEDS: SODIUM CHLORIDE 0.9% 1,000 ML IV SCH ×2 (13:59→21:42)
--- NOTE | 2018-10-21 14:59 | CONS ---
CONSULTATION Mr. Xie is an 83-year-old male who was admitted through the emergency room coming from the detention with GI bleeding. Patient was discharged a few days ago from [facility] with elevation of troponin and severe anemia. The patient has a known history of coronary artery disease, status post coronary artery bypass grafting in 2017, history of paroxysmal atrial fibrillation, end-stage renal disease, on hemodialysis, history of recurrent GI bleeding with hemoglobin. He was discharged home after being admitted this past Friday with symptoms of hypotension at the dialysis unit and was severely anemic, was transfused at that time. On the admission, his troponin were elevated. The patient had no chest discomfort. His breathing has been stable. Today he had tarry stool and was returned to the emergency room. He denies any change in his breathing. He is supine. He has some peripheral edema. He has no dizziness or palpitation. He has underwent dialysis yesterday. He has no recurrent atrial fibrillation. He denies any PND nor orthopnea. His coronary risk factors are positive for hyperlipidemia. He is nondiabetic, nonsmoker. MEDICATIONS: Include midodrine, metoprolol tartrate 12.5 mg twice a day, prednisone, iron, folic acid, Epogen, Lipitor 10 mg daily, aspirin 81 mg daily, amiodarone 100 mg daily, and allopurinol. REVIEW OF SYSTEMS: RESPIRATORY SYSTEM: He has no recent wheezing. No cough. No history of obstructive lung disease. GI SYSTEM: He has GI bleeding. He has no nausea, vomiting. SYSTEM: He has end-stage renal disease, on hemodialysis. NERVOUS SYSTEM: No seizure. PHYSICAL EXAMINATION: An 83-year-old male, alert, oriented, in no apparent distress. Blood pressure 100/80 with a heart rate in the 70s. HEAD: Normocephalic. EYES: Sclerae nonicteric. NECK: Good upstroke, no bruit. LUNGS: Clear to auscultation. HEART: Regular rate and rhythm, S1, S2. No S3 with systolic murmur heard at the base, ejection type, no diastolic murmur, no rub. ABDOMEN: Soft, nontender, positive bowel sounds, no organomegaly. EXTREMITIES: +1 edema. SKIN: With marked ecchymoses bilaterally. Of note, the patient had skin infection with prior cellulitis. LAB DATA: His hemoglobin is 7. BUN and creatinine 46 and 4.17. His troponin 0.0327, plasma lactic acid 3.1 and 2.2. He is heme positive. His EKG revealed a sinus mechanism with a normal axis and intervals and nonspecific ST-T wave changes. IMPRESSION: 1. Gastrointestinal bleeding, source unclear. The patient has had prior episode of gastrointestinal bleeding and prior transfusion most recently last week. 2. Minimal troponin elevation. The numbers are down compared with the numbers he had at [facility]. On presentation at [facility], his non ST-segment elevation myocardial infarction was related to severe anemia. I see no evidence of recurrent ischemic event at this time. 3. Status post coronary artery bypass grafting. 4. Hyperlipidemia. 5. End-stage renal disease. 6. History of infection with prior COLLEEN and no evidence for endocarditis. RECOMMENDATION: From the cardiac standpoint, I will continue his home medication. He will be seen by the GI Service. I see no reason for any further cardiac workup at this time. I thank you for this consult. Will follow with you. MMLORENAL / IJN: [id number] /
[2018-10-21] MEDS: METOPROLOL TARTRATE 12.5 MG TAB PO SCH (16:26)
[2018-10-21] MEDS ORDERED: MIDODRINE 5 MG TAB PO PRN (18:15)
[2018-10-21] MEDS ORDERED: ALPRAZolam 0.25 MG TAB PO PRN (18:17)
[2018-10-21] MEDS ORDERED: ACETAMINOPHEN TAB 500 MG TAB PO PRN (18:17)
[2018-10-21] MEDS: HYDROmorphone 0.5 MG/0.5 ML SYRINGE IVP PRN (18:54)
--- NOTE | 2018-10-21 18:58 | XR ---
EXAMINATION TYPE: XR chest 1V portable DATE OF EXAM: 10/21/2018 COMPARISON: 10/17/2017 HISTORY: Heart failure. Short of breath TECHNIQUE: Single frontal view of the chest is obtained. FINDINGS: Heart is enlarged. There are sternal wires. There is coarsening of the lung markings. Ther e is some mild infiltrate and atelectasis at the right lung base. Right diaphragm is slightly elevate d. IMPRESSION: Pulmonary interstitial fibrosis. Mild infiltrate and atelectasis at the right lung base is increased compared to old exam. No overt heart failure.
--- NOTE | 2018-10-21 19:07 | HP ---
HISTORY AND PHYSICAL DATE OF SERVICE: 10/21/2018 CHIEF COMPLAINT: GI bleed. HISTORY OF PRESENT ILLNESS: This 83-year-old gentleman with a past medical history of multiple medical problems including CAD, CABG, history of CAD, history of chronic renal failure, on hemodialysis, history of hypertension, history of myocardial infarction, history of heart murmur, history of gout, history of sacral decubitus, history of CAD, CABG, is apparently being followed by Dr. Sage in the [facility]. At this time the patient is on hemodialysis 3 times. The patient was recently admitted to [facility] and apparently had 3 units transfusion for hemoglobin around 5.5. The results are not available at this time. Patient also had endoscopies done which showed multiple gastric ulcers. Of note, the patient had multiple episodes of bleeding previously. Patient also was on Eliquis before, but since mid April, the patient is off Eliquis. Today, the patient was noted to have diarrhea maroon colored blood per stools and patient taken to [facility] and was admitted for further evaluation and treatment. Hemoglobin is found to be 7, one unit of transfusion being arranged. The creatinine is 4.17. Lactic acid elevated 3.1. Troponin 0.327. There is no history of fever, rigors or chills. No history of chest pain, palpitations, headache, loss of consciousness, seizures. PAST MEDICAL HISTORY: History of CAD, CABG, history of CHF, history of hemodialysis, chronic renal failure, hypertension, hyperlipidemia, myocardial infarction, rheumatoid arthritis, history of gout, history of MRSA. MEDICATIONS: Prior to admission include home medications are: 1. Midodrine 10 mg daily p.r.n. 2. Milk of magnesia. 3. Donovan 10 mg q.6h. 4. Fleet daily p.r.n. 5. Dulcolax 10 mg daily p.r.n. 6. ProAmatine 10 mg p.o. t.i.d. 7. PhosLo 667 t.i.d. 8. Miconazole b.i.d. 9. Lopressor 12.5 mg b.i.d. 11.Cefazolin 50 mg IV b.i.d. 12.Prednisone 5 mg p.o. daily. 13.Protonix 40 mg a.c. breakfast. 14.Multivitamins one p.o. daily. 15.Folic acid 1 mg daily. 16.Iron sulfate 320 mg p.o. daily. 17.Epogen 8000 subcu Friday, , Friday. 18.Lipitor 10 mg p.o. daily. 19.Ecotrin 81 mg daily. 20.Cordarone 100 mg p.o. 21.Zyloprim 100 mg p.o. daily. ALLERGIES: None. FAMILY HISTORY: No history of heart disease or strokes in the family. SOCIAL HISTORY: Previous history of smoking. No history of current smoking or alcohol. REVIEW OF SYSTEMS: ENT: Diminished vision. Diminished hearing. CARDIOVASCULAR system: As mentioned earlier. RESPIRATORY: As mentioned earlier. GI as mentioned earlier. mentioned earlier. NERVOUS SYSTEM: No numbness or weakness. ALLERGY/IMMUNOLOGY: No asthma or hayfever. MUSCULOSKELETAL as mentioned earlier. HEMATOLOGY/ONCOLOGY: No history of anemia. ENDOCRINE: No history of diabetes or hypothyroidism. CONSTITUTIONAL: As mentioned earlier. DERMATOLOGY mentioned earlier RHEUMATOLOGY negative. PSYCHIATRY as mentioned. PHYSICAL EXAMINATION: Alert and oriented x3. Pulse 74. Blood pressure 140/86, respiration 20, temperature 97.9, pulse ox 100 percent on room air. HEENT: Conjunctivae pale. NECK is no jugular venous distention. No carotid bruit. No lymph node enlargement. CARDIOVASCULAR system: S1, S2 muffled. Ejection systolic murmur. RESPIRATION: Breath sounds diminished in the bases. A few scattered rhonchi and crackles. ABDOMEN: Soft, obese, nontender. No mass palpable. LEGS: Bilateral leg edema. Significant ulcers also present. Sacral decubitus grade 2 present. Multiple bruises also present. Skin tags present. JOINTS: No active deforming arthropathy. Skin as mentioned. LYMPHATICS: No lymph nodes palpable in the neck, axillae or groin. LABS: WBC 9.2, hemoglobin 7, INR 1.3, sodium 136, creatinine 4.1. ASSESSMENT: 1. Acute gastrointestinal bleed, possibly upper gastrointestinal bleeding with peptic ulcer disease, acute blood-loss anemia. 2. History of previous recurrent GI bleed with peptic ulcer disease. 3. Chronic renal failure stage 4 on hemodialysis. 4. Hyponatremia. 5. Lactic acid elevated at 3.1, possibly secondary to renal failure. 6. Troponin 0.327. 7. History of coronary artery disease, coronary artery bypass grafting. 8. History of congestive heart failure. 9. History of chronic renal failure stage 4 on hemodialysis. 10.Hypertension. 11.Hyperlipidemia. 12.Myocardial function. 13.Degenerative joint disease. 14.Rheumatoid arthritis. 15.History of gout. 16.History of sacral decubitus. 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 18.History of coronary artery disease, coronary artery bypass grafting. 19.Remote history of nicotine dependence. 20.History of degenerative joint disease. 21.History of lithotripsy. 22.FULL CODE. RECOMMENDATIONS AND DISCUSSION: In this 83-year-old gentleman who presented with multiple complex medical issues, we will monitor the patient closely, continue the current medications, management and symptomatic treatment. We will initiate 1 unit transfusion and transfuse on a periodic basis with hemoglobin less than 8. Otherwise we will also recommend evaluation by Dr. Bolaños, Gastroenterology and Cardiology. I would also recommend empiric antibiotics. Overall prognosis extremely guarded because of multiple complex medical issues. Further recommendations to follow. Recommend infectious disease evaluation also. A copy of this dictation being forwarded to Dr. Sage who is the primary physician. See orders for details. MMODL / IJN: [id number] / MTDD
[2018-10-21] MEDS ORDERED: DEXTROSE IV SCH (21:00)
[2018-10-21] MEDS ORDERED: CEFAZOLIN IV SCH (21:00)
[2018-10-21] MEDS: PANTOPRAZOLE 40 MG/10 ML VIAL IVP SCH (21:42)
[2018-10-21] MEDS: NYSTATIN 100,000 UNIT/GM POWD 15 GM TOPICAL SCH (21:42)
[2018-10-21] MEDS: HYDROcodone/APAP 10-325MG 1 EACH TAB PO PRN (21:48)
[2018-10-22] MEDS: HYDROmorphone 0.5 MG/0.5 ML SYRINGE IVP PRN (03:48)
[2018-10-22 06:57] LABS: Calcium 7.8 mg/dL (8.4-10.2)
[2018-10-22 07:49] LABS: Anisocytosis Slight; Basophils % (A) 0 %; Eosinophils # (A) 0.1 k/uL (0-0.7); Eosinophils % (A) 1 %; HCT 24.6 % (39.0-53.0); HGB 7.7 gm/dL (13.0-17.5); Hypochromasia Marked; Lymphocytes # (A) 0.8 k/uL (1.0-4.8); Lymphocytes % (A) 8 %; MCH 27.9 pg (25.0-35.0); MCHC 31.4 g/dL (31.0-37.0); MCV 88.8 fL (80.0-100.0); Mean Platelet Volume 8.6; Monocytes # (A) 0.7 k/uL (0-1.0); Monocytes % (A) 7 %; Neutrophils # (A) 7.3 k/uL (1.3-7.7); Neutrophils % (A) 80 %; Platelet Count 141 k/uL (150-450); Poikilocytosis Moderate; RBC 2.77 m/uL (4.30-5.90); RDW 18.2 % (11.5-15.5); WBC 9.1 k/uL (3.8-10.6)
--- NOTE | 2018-10-22 09:45 | P.CONS ---
History of Present Illness - Reason for Consult Consult date: 10/22/18 Anemia, melena Requesting physician: Lb Alcala - Chief Complaint Blood per rectum - History of Present Illness 83-year-old male with multiple medical comorbidities including coronary artery disease, prior CABG, ESRD on hemodialysis, hypertension, gout, and multiple prio r admissions for GI bleed who presented to the hospital due to concerns over further GI bleeding. The patient reports that he had been constipated over the past few days and was subsequently given laxatives and able to have a bowel movement. He reports that the stool he had was extremely dark in nature. The patient has had colonoscopy this year which was significant for diverticulosis, internal hemorrhoids and polypectomy and last EGD on 09/24/2018 was significant for moderate to severe gastritis with a few superficial antral ulcers, a hiatal hernia and moderate duodenitis. The patient reports use of [place] for pain control. Denying any NSAID use. Denying any abdominal pain at this time. No nausea, vomiting, hematemesis or coffee-ground emesis reported. Review of Systems REVIEW OF SYSTEMS: CONSTITUTIONAL: Denies any fevers, chills, weight change or fatigue. CARDIOVASCULAR: Denies any chest pain, palpitations high or low blood pressures RESPIRATORY: Denies any shortness of breath, hemoptysis or cough. GENITOURINARY: End-stage renal disease on hemodialysis. MUSCULOSKELETAL: No weakness reported. SKIN: Denies any new rashes or lesions, jaundice or pallor per patient does have a known history of sacral decubitus ulcer. PSYCHIATRIC: Denies any depression or anxiety. NEUROLOGY: Denies headache, denies any new focal deficits. EARS/NOSE/THROAT: No recent hearing change, congestion, nasal discharge or sore throat. EYES: No pain in eyes, discharge or change in vision. GASTROINTESTINAL: As per HPI. 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 Past Drug Use History: None Reported - Past Family History Father Family Medical History: No Reported History Additional Family Medical History / Comment(s): father in a car accident Mother Family Medical History: No Reported History Additional Family Medical History / Comment(s): mother of old age Medications and Allergies Home Medications Medication Instructions Recorded Confirmed Type Aspirin [Adult Low Dose Aspirin EC] 81 mg PO DAILY@1700 02/10/15 10/21/18 History Pantoprazole [Protonix] 40 mg PO AC-BRKFST tablet. 08/16/16 10/21/18 Rx predniSONE 5 mg PO DAILY tab 08/16/16 10/21/18 Rx Atorvastatin [Lipitor] 10 mg PO DAILY 10/07/17 10/21/18 History Allopurinol [Zyloprim] 100 mg PO DAILY 10/21/18 10/21/18 History Amiodarone [Cordarone] 100 mg PO DAILY 10/21/18 10/21/18 History Bisacodyl [Dulcolax] 10 mg RECTAL DAILY PRN 10/21/18 10/21/18 History Calcium Acetate [PhosLo] 667 mg PO TID@0800,1200,1700 10/21/18 10/21/18 History Cefazolin/Detrose 1-4gm/50ml 50 ml IV BID 10/21/18 10/21/18 History Epoetin Kevin [Epogen] 8,000 unit SQ TUTHSA 10/21/18 10/21/18 History Ferrous Sulfate [Feosol] 325 mg PO DAILY@1700 10/21/18 10/21/18 History Folic Acid 1 mg PO DAILY@1700 10/21/18 10/21/18 History Hydrocodone/Acetaminophen [[place] 1 tab PO Q6H PRN 10/21/18 10/21/18 History 10-325] Liquacel (Unknown Dose) 1 dose PO BID@0800,1700 10/21/18 10/21/18 History Magnesium Hydroxide [Milk of 2,400 mg PO DAILY PRN 10/21/18 10/21/18 History Magnesia] Metoprolol Tartrate [Lopressor] 12.5 mg PO BID@0800,1700 10/21/18 10/21/18 History Miconazole Af Powder 2% 1 applic TOPICAL BID 10/21/18 10/21/18 History Midodrine HCl [ProAmatine] 10 mg PO DAILY PRN 10/21/18 10/21/18 History Midodrine HCl [ProAmatine] 10 mg PO TID@0800,1200,1700 10/21/18 10/21/18 History Multivitamins, Thera [Multivitamin 1 tab PO DAILY@1700 10/21/18 10/21/18 History (formulary)] Na Phos,M-B/Na Phos,Di-Ba [[place] 133 ml RECTAL DAILY PRN 10/21/18 10/21/18 History Adult] Allergies Allergy/AdvReac Type Severity Reaction Status Date / Time No Known Allergies Allergy Verified 10/21/18 10:28 Physical Exam Vitals: Vital Signs Temp Pulse Pulse Resp BP BP Pulse Ox 10/22/18 08:00 75 17 168/72 98 10/22/18 04:00 97.4 F L 66 18 157/77 99 10/22/18 00:00 69 18 130/79 92 L 10/21/18 21:36 97.7 F 69 18 126/56 99 10/21/18 20:00 97.9 F 71 18 114/55 99 10/21/18 19:24 97.5 F L 70 20 127/60 97 10/21/18 18:54 97.8 F 73 20 128/61 10/21/18 18:44 97.9 F 73 16 114/54 98 10/21/18 16:00 97.9 F 74 20 148/63 100 10/21/18 13:51 98.2 F 76 20 143/64 97 10/21/18 13:14 98.2 F 70 18 100/86 97 10/21/18 12:47 71 18 95/56 97 10/21/18 12:11 73 18 94/34 97 10/21/18 10:06 97.7 F 76 18 102/66 97 Intake and Output 10/21/18 10/22/18 10/22/18 22:59 06:59 14:59 Intake Total 550 100 Output Total 100 Balance 550 0 Intake: Oral 240 100 Blood Product 310 Rc As-1 Unit 310 [id number] Output: Urine 100 Uretheral ([place]) 100 Other: Voiding Method Urinal Urinal Urinal # Bowel Movements 1 Weight 92 kg On physical examination, patient appears comfortable in no apparent distress. HEAD: Normocephalic, atraumatic. EYES: No scleral icterus. No conjunctival injection. MOUTH: No lesions, tongue midline. NECK: Trachea midline, no gross abnormalities. CHEST: Clear to auscultation with no wheezing or rhonchi appreciated. HEART: S1-S2 appreciated. ABDOMEN: Soft, obese. Bowel sounds are positive. No organomegaly. No guarding or rigidity. EXTREMITIES: No pedal edema. SKIN: No rashes, no jaundice, sacral decubitus ulcer. NEUROLOGIC: Alert and oriented x3. No focal deficits. Results CBC & Chem 7: 10/22/18 06:15 10/22/18 06:15 Labs: Abnormal Lab Results - Last 24 Hours (Table) 10/21/18 10/21/18 10/21/18 Range/Units 10:25 10:27 10:27 RBC 2.58 L (4.30-5.90) m/uL Hgb 7.0 L (13.0-17.5) gm/dL Hct 23.2 L (39.0-53.0) % MCHC 30.3 L (31.0-37.0) g/dL RDW 18.7 H (11.5-15.5) % Plt Count (150-450) k/uL Neutrophils # 8.0 H (1.3-7.7) k/uL Lymphocytes # 0.7 L (1.0-4.8) k/uL PT (9.0-12.0) sec INR (<1.2) APTT (22.0-30.0) sec Sodium 136 L (137-145) mmol/L BUN 46 H (9-20) mg/dL Creatinine 4.17 H (0.66-1.25) mg/dL Glucose 199 H (74-99) mg/dL Plasma Lactic Acid Jac 3.1 H* (0.7-2.0) mmol/L Calcium 7.9 L (8.4-10.2) mg/dL AST 63 H (17-59) U/L ALT 10 L (21-72) U/L Alkaline Phosphatase 209 H (38-126) U/L Troponin I (0.000-0.034) ng/mL Total Protein 4.2 L (6.3-8.2) g/dL Albumin 2.0 L (3.5-5.0) g/dL Crossmatch 10/21/18 10/21/18 10/21/18 Range/Units 10:27 10:27 10:27 RBC (4.30-5.90) m/uL Hgb (13.0-17.5) gm/dL Hct (39.0-53.0) % MCHC (31.0-37.0) g/dL RDW (11.5-15.5) % Plt Count (150-450) k/uL Neutrophils # (1.3-7.7) k/uL Lymphocytes # (1.0-4.8) k/uL PT 13.6 H (9.0-12.0) sec INR 1.3 H (<1.2) APTT 30.8 H (22.0-30.0) sec Sodium (137-145) mmol/L BUN (9-20) mg/dL Creatinine (0.66-1.25) mg/dL Glucose (74-99) mg/dL Plasma Lactic Acid Jac (0.7-2.0) mmol/L Calcium (8.4-10.2) mg/dL AST (17-59) U/L ALT (21-72) U/L Alkaline Phosphatase (38-126) U/L Troponin I 0.327 H* (0.000-0.034) ng/mL Total Protein (6.3-8.2) g/dL Albumin (3.5-5.0) g/dL Crossmatch See Detail 10/21/18 10/22/18 10/22/18 Range/Units 13:00 06:15 06:15 RBC 2.77 L (4.30-5.90) m/uL Hgb 7.7 L (13.0-17.5) gm/dL Hct 24.6 L (39.0-53.0) % MCHC (31.0-37.0) g/dL RDW 18.2 H (11.5-15.5) % Plt Count 141 L (150-450) k/uL Neutrophils # (1.3-7.7) k/uL Lymphocytes # 0.8 L (1.0-4.8) k/uL PT (9.0-12.0) sec INR (<1.2) APTT (22.0-30.0) sec Sodium (137-145) mmol/L BUN 57 H (9-20) mg/dL Creatinine 4.49 H (0.66-1.25) mg/dL Glucose 131 H (74-99) mg/dL Plasma Lactic Acid Jac 2.2 H* (0.7-2.0) mmol/L Calcium 7.8 L (8.4-10.2) mg/dL AST (17-59) U/L ALT (21-72) U/L Alkaline Phosphatase (38-126) U/L Troponin I (0.000-0.034) ng/mL Total Protein (6.3-8.2) g/dL Albumin (3.5-5.0) g/dL Crossmatch Assessment and Plan (1) GI bleed Narrative/Plan: 83-year-old with multiple medical comorbidities including prior GI bleeding and multiple endoscopies in the past year with last EGD in September showing moderate to severe gastritis with superficial antral ulcers, a hiatal hernia and moderate duodenitis and colonoscopy this year significant for diverticulosis, internal hemorrhoids and polypectomy. He presented with complaints of dark stool concern for GI bleed. Hemoglobin is 7.7 from 7 yesterday with normocytic indices. No abdominal pain reported. No nausea, vomiting, hematemesis or coffee-ground emesis reported. Stool testing was positive for blood. It is unclear if the patient's anemia is secondary to anemia of chronic disease or whether there is an acute component of blood loss anemia due to GI bleed. Current Visit: Yes Status: Acute Code(s): K92.2 - GASTROINTESTINAL HEMORRHAGE, UNSPECIFIED SNOMED Code(s): 19748953 (2) Normocytic anemia Narrative/Plan: Patient with end-stage renal disease with normocytic anemia and anemia of chronic disease, recent history of GI bleed and stool testing positive for occult blood making it difficult to rule out a component of GI bleed contributing to anemia. Current Visit: Yes Status: Acute Code(s): D64.9 - ANEMIA, UNSPECIFIED SNOMED Code(s): 418496134 Plan: Supportive care Continue Protonix therapy Nothing by mouth Continue monitor hemoglobin and hematocrit and transfuse as needed Avoid NSAID use Plan for EGD today for further evaluation of anemia Further recommendations pending findings of endoscopy Thank you for allowing us to participate in the care of the patient we will continue to follow
--- NOTE | 2018-10-22 10:58 | PN ---
PROGRESS NOTE Mr. Xie is an 83-year-old male with known history of coronary artery disease, status post coronary artery bypass grafting, end-stage renal disease and anemia, who presented with GI bleeding and anemia. He had mild troponin elevation that has been on the down trend compared with a recent admission to [facility]. He is feeling well this morning. His breathing is stable. He is denying any chest pain. No dizziness. No palpitation. He denies any nausea. He is scheduled to undergo endoscopy today. He continues to be on amiodarone 100 mg daily, metoprolol tartrate 12.5 mg twice a day and Lipitor 40 mg daily. PHYSICAL EXAMINATION: Blood pressure running in the 130s to 160s with a heart rate in the 60s. LUNGS: Clear. HEART: Regular rate and rhythm S1, S2. No S3 with systolic murmur heard at the base. No diastolic murmur. No rub. ABDOMEN: Soft, nontender. EXTREMITIES: No edema. LAB DATA: Lab data revealed BUN and creatinine 57 and 4.4, potassium 4.0, hemoglobin of 7.7. IMPRESSION: 1. Anemia with gastrointestinal bleeding. Source unclear. 2. History of coronary artery disease status post coronary artery bypass grafting. 3. Troponin elevation on the down trend from recent admission with non ST-segment elevation myocardial infarction a week ago. 4. End-stage renal disease, on hemodialysis. 5. Hyperlipidemia. RECOMMENDATIONS: From the cardiac standpoint, we will continue present therapy. We will follow his blood pressure and depending on the trend, the dose of his beta odette can be further adjusted. We will await the input of the GI service. The patient is scheduled to undergo dialysis today. MMODL / IJN: [id number] /
[2018-10-22] MEDS ORDERED: LIDOCAINE 1% INJ 10MG/ML (20 ML MDV) ONE (11:21)
[2018-10-22] MEDS ORDERED: PROPOFOL 10 MG/ML 20 ML VIAL IV ONE (11:21)
[2018-10-22] MEDS ORDERED: IV FLUID CONTINUATION 200 ML IV ONE (11:30)
--- NOTE | 2018-10-22 11:59 | P.PCN ---
Date of Procedure: 10/22/18 Description of Procedure: BRIEF HISTORY: 83-year-old male with multiple medical comorbidities including coronary artery disease, prior CABG, ESRD on hemodialysis, hypertension, gout, and multiple prior admissions for GI bleed who presented to the hospital due to concerns over further GI bleeding. The patient reports that he had been constipated over the past few days and was subsequently given laxatives and able to have a bowel movement. He reports that the stool he had was extremely dark in nature. The patient has had colonoscopy this year which was significant for diverticulosis, internal hemorrhoids and polypectomy and last EGD on 09/24/2018 was significant for moderate to severe gastritis with a few superficial antral ulcers, a hiatal hernia and moderate duodenitis. The patient reports use of [place] for pain control. Denying any NSAID use. Denying any abdominal pain at this time. No nausea, vomiting, hematemesis or coffee-ground emesis reported. PROCEDURE PERFORMED: Esophagogastroduodenoscopy with cold probe ablation. PREOPERATIVE DIAGNOSIS: Anemia, melena. ESTIMATED BLOOD LOSS: Minimal. IV sedation per anesthesia. PROCEDURE: After informed consent was obtained, the patient was brought into the endoscopy unit. IV sedation was administered by Anesthesia under continuous monitoring. Initially the Olympus GIF-190 video endoscope was inserted into the mouth. Esophagus intubated without any difficulty. It was gradually advanced into the stomach and duodenum and carefully examined. The bulb and the second part of the duodenum were significant for erythema and irritation suggestive of moderate duodenitis. The scope at this time was withdrawn to the stomach, adequately insufflated with air, and upon careful examination, mucosa of the antrum, body, cardia and the fundus were significant for diffuse erythema and irritation with some superficial erosions in the antrum and body suggestive of erosive gastritis. 2 superficial erosions with small amount of oozing of blood was noted and treated with Gold probe cauterization. The scope was then withdrawn into the esophagus. The GE junction was located at 42 cm from the incisors. The esophagus appeared normal. There were no erosions or ulcerations seen and the patient tolerated the procedure well. IMPRESSION: 1. Erosive gastritis, with treatment of 2 focal areas of oozing of a small amount of blood with Gold probe cauterization. 2. Moderate duodenitis. RECOMMENDATIONS: The findings of this examination were discussed with the patient. Okay to resume diet. Continue Protonix 40 mg by mouth twice daily. Avoid NSAIDs. Continue to monitor hemoglobin and hematocrit and transfuse as needed. No further endoscopic evaluation planned at this time.
[2018-10-22] MEDS: MIDODRINE 5 MG TAB PO SCH ×3 (13:01→18:38)
[2018-10-22] MEDS: ATORVASTATIN 40 MG TAB PO SCH (13:01)
[2018-10-22] MEDS: HYDROcodone/APAP 10-325MG 1 EACH TAB PO PRN ×2 (13:01→21:52)
[2018-10-22] MEDS: METOPROLOL TARTRATE 12.5 MG TAB PO SCH ×2 (13:01→18:38)
--- NOTE | 2018-10-22 13:35 | P.NPCON ---
History of Present Illness - Reason for Consult end stage renal disease - Chief Complaint Bleeding per rectum - History of Present Illness ESRD patient of Dr. Fernandez TTS at [place], left upper arm AV fistula. Coming to the hospital with bleeding per rectum. EGD showed erosive gastritis with 2 bleeding ulcers., Cauterized. No nausea vomiting. He takes aspirin and prednisone. No anticoagulants. 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 Past Drug Use History: None Reported - Past Family History Father Family Medical History: No Reported History Additional Family Medical History / Comment(s): father in a car accident Mother Family Medical History: No Reported History Additional Family Medical History / Comment(s): mother of old age Medications and Allergies Home Medications Medication Instructions Recorded Confirmed Type Aspirin [Adult Low Dose Aspirin EC] 81 mg PO DAILY@1700 02/10/15 10/21/18 History Pantoprazole [Protonix] 40 mg PO AC-BRKFST tablet. 08/16/16 10/21/18 Rx predniSONE 5 mg PO DAILY tab 08/16/16 10/21/18 Rx Atorvastatin [Lipitor] 10 mg PO DAILY 10/07/17 10/21/18 History Allopurinol [Zyloprim] 100 mg PO DAILY 10/21/18 10/21/18 History Amiodarone [Cordarone] 100 mg PO DAILY 10/21/18 10/21/18 History Bisacodyl [Dulcolax] 10 mg RECTAL DAILY PRN 10/21/18 10/21/18 History Calcium Acetate [PhosLo] 667 mg PO TID@0800,1200,1700 10/21/18 10/21/18 History Cefazolin/Detrose 1-4gm/50ml 50 ml IV BID 10/21/18 10/21/18 History Epoetin Kevin [Epogen] 8,000 unit SQ TUTHSA 10/21/18 10/21/18 History Ferrous Sulfate [Feosol] 325 mg PO DAILY@169910/21/18 10/21/18 History Folic Acid 1 mg PO DAILY@169910/21/18 10/21/18 History Hydrocodone/Acetaminophen [[place] 1 tab PO Q6H PRN 10/21/18 10/21/18 History 10-325] Liquacel (Unknown Dose) 1 dose PO BID@0800,1700 10/21/18 10/21/18 History Magnesium Hydroxide [Milk of 2,400 mg PO DAILY PRN 10/21/18 10/21/18 History Magnesia] Metoprolol Tartrate [Lopressor] 12.5 mg PO BID@0800,1700 10/21/18 10/21/18 History Miconazole Af Powder 2% 1 applic TOPICAL BID 10/21/18 10/21/18 History Midodrine HCl [ProAmatine] 10 mg PO DAILY PRN 10/21/18 10/21/18 History Midodrine HCl [ProAmatine] 10 mg PO TID@0800,1200,1700 10/21/18 10/21/18 History Multivitamins, Thera [Multivitamin 1 tab PO DAILY@169910/21/18 10/21/18 History (formulary)] Na Phos,M-B/Na Phos,Di-Ba [Fleet 133 ml RECTAL DAILY PRN 10/21/18 10/21/18 History Adult] Allergies Allergy/AdvReac Type Severity Reaction Status Date / Time No Known Allergies Allergy Verified 10/21/18 10:28 Physical Exam Vitals: Vital Signs Temp Pulse Pulse Resp BP BP Pulse Ox 10/22/18 08:00 75 17 168/72 98 10/22/18 04:00 97.4 F L 66 18 157/77 99 10/22/18 00:00 69 18 130/79 92 L 10/21/18 21:36 97.7 F 69 18 126/56 99 10/21/18 20:00 97.9 F 71 18 114/55 99 10/21/18 19:24 97.5 F L 70 20 127/60 97 10/21/18 18:54 97.8 F 73 20 128/61 10/21/18 18:44 97.9 F 73 16 114/54 98 10/21/18 16:00 97.9 F 74 20 148/63 100 10/21/18 13:51 98.2 F 76 20 143/64 97 Intake and Output 10/21/18 10/22/18 10/22/18 22:59 06:59 14:59 Intake Total 550 100 100 Output Total 100 Balance 550 0 100 Intake: IV 100 Oral 240 100 Blood Product 310 Rc As-1 Unit 310 [id number] Output: Urine 100 Uretheral ([place]) 100 Other: Voiding Method Urinal Urinal Urinal # Bowel Movements 1 Weight 92 kg 92 kg No acute distress S1-S2 heard Left upper arm aVF Edema Results - Lab Results Most recent lab results Calcium 7.8 mg/dL (8.4-10.2) L 10/22/18 06:15 10/22/18 06:15 10/22/18 06:15 Assessment and Plan Assessment: #1 GI bleed secondary to bleeding ulcers status post cauterization #2 ESRD TTS,left upper arm AV fistula #3 volume overload with edema #4 hypertension with ESRD #5 anemia with ESRD/GI bleed #6 metabolic bone disease with ESRD Plan: #1 transfuse to maintain hemoglobin more than 8 if needed #2 dialysis as per outpatient schedule #3 ESRD medications #4 check iron studies in the morning #5 midodrine for hemodynamic support
[2018-10-22] MEDS: NYSTATIN 100,000 UNIT/GM POWD 15 GM TOPICAL SCH ×2 (14:55→21:52)
[2018-10-22] MEDS: PANTOPRAZOLE 40 MG TABLET PO SCH (18:39)
[2018-10-22] MEDS: AMIODARONE 100 MG TAB PO SCH (18:40)
[2018-10-22] MEDS: SODIUM CHLORIDE 0.9% 1,000 ML IV SCH (18:40)
[2018-10-22] MEDS: PANTOPRAZOLE 40 MG/10 ML VIAL IVP SCH (19:01)
--- NOTE | 2018-10-22 20:01 | PN ---
PROGRESS NOTE DATE OF SERVICE: 10/22/2018. This 83-year-old gentleman with a past medical history of multiple medical problems admitted with acute gastrointestinal bleed. The patient also had previous peptic ulcer disease and acute blood loss anemia. Also, hemoglobin 7.7 this morning. The troponin is found to be 0.286. The EGD showed erosive gastritis and 2 focal areas of oozing of small amount of blood with gold probe cauterization and moderate duodenitis also noted. No chest pain. No palpitations. No fever. PAST MEDICAL HISTORY: Reviewed. REVIEW OF SYSTEMS: CARDIOVASCULAR: No angina or palpitations. RESPIRATION: As mentioned earlier. GASTROINTESTINAL: As mentioned earlier. no dysuria. NERVOUS SYSTEM: No numbness or weakness. CURRENT MEDICATIONS: Medications are reviewed and include: 1. Tylenol p.r.n. 2. [place] 10 mg q.6h p.r.n. 3. Xanax 0.25 t.i.d. 4. Cordarone 100 mg daily. 5. Lipitor 40 mg daily. 6. Cefazolin. 7. Dilaudid 0.5 mg q.6h. 8. Lopressor 12.5 mg b.i.d. 9. Midodrine. 10.ProAmatine. 11.Mycostatin . 12.Protonix 40 mg b.i.d. 13.IV fluids. PHYSICAL EXAMINATION: Patient is alert, oriented x3. Pulse 61, blood pressure ntd, respirations 14, temperature normal, pulse ox 98 percent on room air. HEENT: Conjunctivae pale. Oral mucosa moist. NECK is no jugular venous distention. No carotid bruit. No lymph node enlargement. CARDIOVASCULAR system: S1, S2 muffled. No S3, no S4. RESPIRATORY: Breath sounds diminished in the bases. Bilateral scattered rhonchi and crackles. ABDOMEN: Soft, nontender. No mass palpable. LEGS: No edema. No swelling. NERVOUS SYSTEM: Higher functions as mentioned. Moves all four limbs. No focal deficits. LYMPHATICS: No lymph nodes palpable in the neck, axillae or groin. SKIN: No ulcer, rashes or bleeding. JOINTS: No active deforming arthropathy. LABS: WBC 19.1, hemoglobin 7.2, sodium 130, potassium 4, creatinine 4.49. Troponins are noted. ASSESSMENT: 1. Acute gastrointestinal bleed, upper gastrointestinal bleeding from possibly erosive gastritis and as well as some moderate duodenitis, status post EGD. 2. Acute blood loss anemia. 3. History of previous recurrent gastrointestinal bleed with peptic ulcer disease. 4. Chronic renal failure stage 4 on hemodialysis. 5. Hyponatremia. 6. Lactic acid elevated at 3.1, possibly secondary to renal failure. 7. Troponin 0.227. 8. History of coronary artery disease, history of coronary artery bypass grafting. 9. History of chronic kidney disease and chronic renal failure stage 4 on hemodialysis. 10.Hypertension. 11.Hyperlipidemia. 12.History of myocardial infarction. 13.History of degenerative joint disease. 14.History of rheumatoid arthritis. 15.History of gout. 16.History of sacral decubitus Stage II. 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 18.History of coronary artery disease, coronary artery bypass grafting. 19.History of nicotine dependence. 20.History of degenerative joint disease. 21.History of lithotripsy. RECOMMENDATIONS AND DISCUSSION: Recommend to continue current medications, continue with monitoring, management and symptomatic treatment. Otherwise, at this time, I would recommend monitor the hemoglobin closely. The EGD findings appreciated. Creatinine is 4.49. Continue the hemodialysis. Lactic acid also will be monitored. Troponins are noted. Guarded prognosis. Further recommendations to follow. Discussed with the family at length. MMODL / IJN: [id number] / FOREIGN
--- NOTE | 2018-10-22 22:45 | P.CONS ---
History of Present Illness - Reason for Consult Consult date: 10/21/18 Bilateral gluteal pressure ulcer and MSSA bacteremia Requesting physician: Lb Alcala - Chief Complaint Bleeding per rectum - History of Present Illness Patient is 83-year-old male well-known to my service in this patient currently undergoing treatment with IV cefazolin for an MSSA bacteremia thought to be related to skin source as the patient did have extensive workup for a deep infection that was negative including a negative COLLEEN and MRI of the lumbosacral spine, patient now has been admitted to the hospital with black tarry stool that was noticed by the prison staff patient himself denies having any abdominal pain no nausea no vomiting no chest pain shortness of breath or cough the patient is dialysis dependent and to make small amount of urine and no significant urinary symptoms was asked to see the patient for his antibiotic management as well as bilateral gluteal pressure ulcer the patient has for a couple of months now patient had did have mild the lacking pain to the bilateral gluteal wound more of dull aching 1-2 out of 10 and no radiation currently with no drainage Review of Systems Positive points has been mentioned in HPI rest of the systems negative Past Medical History Past Medical History: Coronary Artery Disease (CAD), Heart Failure, Dialysis, Hyperlipidemia, Hypertension, Myocardial Infarction (NH), Osteoarthritis (OA), Renal Disease, Rheumatoid Arthritis (RA), Skin Disorder Additional Past Medical History / Comment(s): heart murmer, gout, wound on bottom of left foot, anemia, hemodialysis , hx kidney stones Last Myocardial Infarction Date:: 04/21/2004 History of Any Multi-Drug Resistant Organisms: MRSA, VRE Year Discovered:: 10/27/17 MDRO Source:: 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 Past Drug Use History: None Reported - Past Family History Father Family Medical History: No Reported History Additional Family Medical History / Comment(s): father in a car accident Mother Family Medical History: No Reported History Additional Family Medical History / Comment(s): mother of old age Medications and Allergies Home Medications Medication Instructions Recorded Confirmed Type Aspirin [Adult Low Dose Aspirin EC] 81 mg PO DAILY@1700 02/10/15 10/21/18 History Pantoprazole [Protonix] 40 mg PO AC-BRKFST tablet. 08/16/16 10/21/18 Rx predniSONE 5 mg PO DAILY tab 08/16/16 10/21/18 Rx Atorvastatin [Lipitor] 10 mg PO DAILY 10/07/17 10/21/18 History Allopurinol [Zyloprim] 100 mg PO DAILY 10/21/18 10/21/18 History Amiodarone [Cordarone] 100 mg PO DAILY 10/21/18 10/21/18 History Bisacodyl [Dulcolax] 10 mg RECTAL DAILY PRN 10/21/18 10/21/18 History Calcium Acetate [PhosLo] 667 mg PO TID@0800,1200,1700 10/21/18 10/21/18 History Cefazolin/Detrose 1-4gm/50ml 50 ml IV BID 10/21/18 10/21/18 History Epoetin Kevin [Epogen] 8,000 unit SQ TUTHSA 10/21/18 10/21/18 History Ferrous Sulfate [Feosol] 325 mg PO DAILY@1700 10/21/18 10/21/18 History Folic Acid 1 mg PO DAILY@1700 10/21/18 10/21/18 History Hydrocodone/Acetaminophen [Emmett 1 tab PO Q6H PRN 10/21/18 10/21/18 History 10-325] Liquacel (Unknown Dose) 1 dose PO BID@0800,1700 10/21/18 10/21/18 History Magnesium Hydroxide [Milk of 2,400 mg PO DAILY PRN 10/21/18 10/21/18 History Magnesia] Metoprolol Tartrate [Lopressor] 12.5 mg PO BID@0800,1700 10/21/18 10/21/18 History Miconazole Af Powder 2% 1 applic TOPICAL BID 10/21/18 10/21/18 History Midodrine HCl [ProAmatine] 10 mg PO DAILY PRN 10/21/18 10/21/18 History Midodrine HCl [ProAmatine] 10 mg PO TID@0800,1200,1700 10/21/18 10/21/18 History Multivitamins, Thera [Multivitamin 1 tab PO DAILY@1700 10/21/18 10/21/18 History (formulary)] Na Phos,M-B/Na Phos,Di-Ba [Fleet 133 ml RECTAL DAILY PRN 10/21/18 10/21/18 History Adult] Allergies Allergy/AdvReac Type Severity Reaction Status Date / Time No Known Allergies Allergy Verified 10/21/18 10:28 Physical Exam Vitals: Vital Signs Temp Pulse Pulse Resp BP BP Pulse Ox 10/21/18 16:00 97.9 F 74 20 148/63 100 10/21/18 13:51 98.2 F 76 20 143/64 97 10/21/18 13:14 98.2 F 70 18 100/86 97 10/21/18 12:47 71 18 95/56 97 10/21/18 12:11 73 18 94/34 97 10/21/18 10:06 97.7 F 76 18 102/66 97 Intake and Output 10/21/18 10/21/18 10/21/18 06:59 14:59 22:59 Intake Total 240 Balance 240 Intake: Oral 240 Other: # Voids 0 # Bowel Movements 1 1 Weight 83.915 kg GENERAL DESCRIPTION: An elderly male lying in bed, no distress. No tachypnea or accessory muscle of respiration use. HEENT: Shows Pallor , no scleral icterus. Oral mucous membrane is dry. No pharyngeal erythema or thrush NECK: Trachea central, no thyromegaly. LUNGS: Unlabored breathing. Decreased breath sound at the base. No wheeze or crackle. HEART: S1, S2, regular rate and rhythm. No loud murmur ABDOMEN: Soft, no tenderness , guarding or rigidity, no organomegaly EXTREMITIES: No edema of feet. SKIN: No rash, multiple bruises, patient had did have stage II to bilateral gluteal area with no slough tissue no surrounding swelling redness or drainage. NEUROLOGICAL: The patient is awake, alert, oriented x3, mood and affect normal Results CBC & Chem 7: 10/22/18 06:15 10/22/18 06:15 Labs: Abnormal Lab Results - Last 24 Hours (Table) 10/21/18 10/21/18 10/21/18 Range/Units 10:25 10:27 10:27 RBC 2.58 L (4.30-5.90) m/uL Hgb 7.0 L (13.0-17.5) gm/dL Hct 23.2 L (39.0-53.0) % MCHC 30.3 L (31.0-37.0) g/dL RDW 18.7 H (11.5-15.5) % Neutrophils # 8.0 H (1.3-7.7) k/uL Lymphocytes # 0.7 L (1.0-4.8) k/uL PT (9.0-12.0) sec INR (<1.2) APTT (22.0-30.0) sec Sodium 136 L (137-145) mmol/L BUN 46 H (9-20) mg/dL Creatinine 4.17 H (0.66-1.25) mg/dL Glucose 199 H (74-99) mg/dL Plasma Lactic Acid Jac 3.1 H* (0.7-2.0) mmol/L Calcium 7.9 L (8.4-10.2) mg/dL AST 63 H (17-59) U/L ALT 10 L (21-72) U/L Alkaline Phosphatase 209 H (38-126) U/L Troponin I (0.000-0.034) ng/mL Total Protein 4.2 L (6.3-8.2) g/dL Albumin 2.0 L (3.5-5.0) g/dL Crossmatch 10/21/18 10/21/18 10/21/18 Range/Units 10:27 10:27 10:27 RBC (4.30-5.90) m/uL Hgb (13.0-17.5) gm/dL Hct (39.0-53.0) % MCHC (31.0-37.0) g/dL RDW (11.5-15.5) % Neutrophils # (1.3-7.7) k/uL Lymphocytes # (1.0-4.8) k/uL PT 13.6 H (9.0-12.0) sec INR 1.3 H (<1.2) APTT 30.8 H (22.0-30.0) sec Sodium (137-145) mmol/L BUN (9-20) mg/dL Creatinine (0.66-1.25) mg/dL Glucose (74-99) mg/dL Plasma Lactic Acid Jac (0.7-2.0) mmol/L Calcium (8.4-10.2) mg/dL AST (17-59) U/L ALT (21-72) U/L Alkaline Phosphatase (38-126) U/L Troponin I 0.327 H* (0.000-0.034) ng/mL Total Protein (6.3-8.2) g/dL Albumin (3.5-5.0) g/dL Crossmatch See Detail 10/21/18 Range/Units 13:00 RBC (4.30-5.90) m/uL Hgb (13.0-17.5) gm/dL Hct (39.0-53.0) % MCHC (31.0-37.0) g/dL RDW (11.5-15.5) % Neutrophils # (1.3-7.7) k/uL Lymphocytes # (1.0-4.8) k/uL PT (9.0-12.0) sec INR (<1.2) APTT (22.0-30.0) sec Sodium (137-145) mmol/L BUN (9-20) mg/dL Creatinine (0.66-1.25) mg/dL Glucose (74-99) mg/dL Plasma Lactic Acid Jac 2.2 H* (0.7-2.0) mmol/L Calcium (8.4-10.2) mg/dL AST (17-59) U/L ALT (21-72) U/L Alkaline Phosphatase (38-126) U/L Troponin I (0.000-0.034) ng/mL Total Protein (6.3-8.2) g/dL Albumin (3.5-5.0) g/dL Crossmatch Assessment and Plan Assessment: 1-patient with MSSA bacteremia for the patient currently undergoing treatment with IV cefazolin 1 g every 12 doses been adjusted by the pharmacist in this patient who did have extensive workup for deep infection including COLLEEN and MRI of the lumbosacral spine that has been negative and follow blood culture has been negative as well 2-patient with bilateral gluteal stage II pressure ulcer with no cellulitis Plan: 1-cefazolin 1 g every 12 for to continue to finish his two-week course of the rapy from a negative blood culture 2-Aquacel silver dressing to bilateral gluteal wound to be applied try keep the area off the pressure we will follow up on clinical condition and cultures to further adjust medication if needed Thank you for this consultation will follow this patient along with you Time with Patient: Greater than 30
--- NOTE | 2018-10-23 00:22 | PN ---
PROGRESS NOTE DATE OF SERVICE: 10/22/2018. REASON FOR FOLLOWUP: 1. MSSA bacteremia. 2. Stage II sacral pressure ulcer. INTERVAL HISTORY: The patient is currently afebrile. The patient has been breathing comfortably. Denies having any chest pain or shortness of breath or cough. The patient did have post EEG this morning with complication of a bleeding device. PHYSICAL EXAMINATION: Blood pressure 135/56, pulse of 66, temperature 98.1. He is 98% on room air. General description is an elderly male lying in bed in no distress. Respiratory system: Unlabored breathing with decreased breath sounds at the bases. No wheeze. Heart S1, S2. Regular rate and rhythm. Abdomen soft, no tenderness. LABS: Hemoglobin 10.5, white count 9.1. BUN of 57, creatinine 4.49. DIAGNOSTIC IMPRESSION AND PLAN: 1. Patient with MSSA bacteremia for which the patient did have extensive workup at the [facility], those have been negative. Currently cefazolin 1 g q.12h to finish a 2 week course of therapy. 2. Patient with a stage II sacral pressure ulcer. Local wound care with Aquacel Silver dressing to keep the area dry and off the pressure. MMODL / IJN: [id number] /
[2018-10-23] MEDS: HYDROmorphone 0.5 MG/0.5 ML SYRINGE IVP PRN ×3 (03:24→21:17)
[2018-10-23] MEDS: PANTOPRAZOLE 40 MG TABLET PO SCH ×2 (06:17→18:00)
[2018-10-23 08:54] LABS: Anisocytosis Slight; HCT 23.4 % (39.0-53.0); HGB 7.3 gm/dL (13.0-17.5); Hypochromasia Marked; MCH 27.2 pg (25.0-35.0); MCV 87.6 fL (80.0-100.0); Mean Platelet Volume 9.1; Platelet Count 117 k/uL (150-450); Poikilocytosis Moderate; RBC 2.67 m/uL (4.30-5.90); WBC 7.1 k/uL (3.8-10.6)
[2018-10-23 09:07] LABS: Calcium 7.9 mg/dL (8.4-10.2)
[2018-10-23 09:08] LABS: Potassium 4.7 mmol/L (3.5-5.1)
[2018-10-23] MEDS: HYDROcodone/APAP 10-325MG 1 EACH TAB PO PRN (09:17)
[2018-10-23] MEDS: AMIODARONE 100 MG TAB PO SCH (09:17)
[2018-10-23 09:18] LABS: Eosinophils # (M) 0.07 k/uL (0-0.7); Lymphocytes # (M) 0.85 k/uL (1.0-4.8); Monocytes # (M) 0.43 k/uL (0-1.0); Neutrophils # (M) 5.75 k/uL (1.3-7.7); Neutrophils % (M) 81 %; Nucleated Red Blood Cells 0 /100 WBC (0-0); Total Cells Counted 100
[2018-10-23] MEDS: ATORVASTATIN 40 MG TAB PO SCH (09:18)
[2018-10-23] MEDS: MIDODRINE 5 MG TAB PO SCH ×3 (09:18→17:58)
[2018-10-23] MEDS: METOPROLOL TARTRATE 12.5 MG TAB PO SCH ×2 (09:18→17:58)
[2018-10-23] MEDS: SODIUM CHLORIDE 0.9% 1,000 ML IV SCH (09:19)
[2018-10-23] MEDS: NYSTATIN 100,000 UNIT/GM POWD 15 GM TOPICAL SCH ×2 (09:19→21:12)
--- NOTE | 2018-10-23 11:09 | P.PN ---
Subjective Progress Note Date: 10/23/18 seen and examined for f/u of esrd. had dialysis yesterday, tolerated well. Objective - Vital Signs Vital signs: Vital Signs Temp 98.3 F 10/23/18 08:00 Pulse 89 10/23/18 08:00 Resp 20 10/23/18 08:00 BP 128/59 10/23/18 08:00 Pulse Ox 98 10/23/18 08:00 Intake & Output 10/22/18 10/23/18 10/23/18 18:59 06:59 18:59 Intake Total 100 340 Output Total 1000 Balance -900 340 Weight 92 kg 93.5 kg Intake: IV 100 Oral 340 Output: Hemodialysis 1000 Other: Voiding Method Urinal Urinal Diaper # Bowel Movements 1 1 - Exam no acute distress s1 s2 herd decrease breath sounds edema left upper arm avf - Labs CBC & Chem 7: 10/23/18 07:24 10/23/18 07:24 Labs: Abnormal Lab Results - Last 24 Hours (Table) 10/22/18 10/23/18 10/23/18 Range/Units 06:15 07:24 07:24 RBC 2.67 L (4.30-5.90) m/uL Hgb 7.3 L (13.0-17.5) gm/dL Hct 23.4 L (39.0-53.0) % RDW 19.0 H (11.5-15.5) % Plt Count 117 L (150-450) k/uL Lymphocytes # (Manual) 0.85 L (1.0-4.8) k/uL Chloride 109 H (98-107) mmol/L BUN 41 H (9-20) mg/dL Creatinine 3.43 H (0.66-1.25) mg/dL Glucose 121 H (74-99) mg/dL Calcium 7.9 L (8.4-10.2) mg/dL Troponin I 0.286 H* (0.000-0.034) ng/mL Microbiology - Last 24 Hours (Table) 10/21/18 13:00 Blood Culture - Preliminary Blood No Growth after 24 hours 10/21/18 10:27 Blood Culture - Preliminary Blood No Growth after 24 hours Assessment and Plan Assessment: #1 GI bleed secondary to bleeding ulcers status post cauterization #2 ESRD TTS,left upper arm AV fistula #3 volume overload with edema #4 hypertension with ESRD #5 anemia with ESRD/GI bleed #6 metabolic bone disease with ESRD #7 MSSA Bacteremia Plan: #1 transfuse to maintain hemoglobin more than 8 if needed #2 dialysis as per outpatient schedule #3 ESRD medications #4 iron studies pending. #5 midodrine for hemodynamic support
--- NOTE | 2018-10-23 12:05 | P.PN ---
Subjective Progress Note Date: 10/23/18 Physical pleasant 9-year-old male with a history of CAD, status post CABG, end- stage renal disease and anemia. Presented with GI bleeding and anemia. He had mild troponin elevation that has been on the down trend compared to recent admission to [facility]. Overall he is feeling well this morning. His breathing is stable. He denies any chest discomfort, dizziness, palpitations, nausea. He underwent dialysis yesterday. He remains on amiodarone, Lipitor, metoprolol tartrate, Protonix and Midodrine. Hemoglobin this morning came back at 7.3, down from 7.7 yesterday. Objective - Vital Signs Vital signs: Vital Signs Temp 98.3 F 10/23/18 08:00 Pulse 89 10/23/18 08:00 Resp 20 10/23/18 08:00 BP 128/59 10/23/18 08:00 Pulse Ox 98 10/23/18 08:00 Intake & Output 10/22/18 10/23/18 10/23/18 18:59 06:59 18:59 Intake Total 100 340 360 Output Total 1000 Balance -900 340 360 Weight 92 kg 93.5 kg Intake: IV 100 Oral 340 360 Output: Hemodialysis 1000 Other: Voiding Method Urinal Urinal Urinal Diaper Diaper # Bowel Movements 1 1 - Exam PHYSICAL EXAMINATION: HEENT: Head is atraumatic, normocephalic. Pupils equal, round. Neck is supple. There is no elevated jugular venous pressure. HEART EXAMINATION: Heart sounds regular, S1 and S2 with a systolic murmur at the base. CHEST EXAMINATION: Lungs are clear to auscultation and precussion. No chest wall tenderness is noted on palpation or with deep breathing. ABDOMEN: Soft, nontender. Bowel sounds are heard. No organomegaly noted. EXTREMITIES: 2+ peripheral pulses with no evidence of peripheral edema and no calf tenderness noted. NEUROLOGIC patient is awake, alert and oriented x3. . - Labs CBC & Chem 7: 10/23/18 07:24 10/23/18 07:24 Labs: Abnormal Lab Results - Last 24 Hours (Table) 10/23/18 10/23/18 Range/Units 07:24 07:24 RBC 2.67 L (4.30-5.90) m/uL Hgb 7.3 L (13.0-17.5) gm/dL Hct 23.4 L (39.0-53.0) % RDW 19.0 H (11.5-15.5) % Plt Count 117 L (150-450) k/uL Lymphocytes # (Manual) 0.85 L (1.0-4.8) k/uL Chloride 109 H (98-107) mmol/L BUN 41 H (9-20) mg/dL Creatinine 3.43 H (0.66-1.25) mg/dL Glucose 121 H (74-99) mg/dL Calcium 7.9 L (8.4-10.2) mg/dL Microbiology - Last 24 Hours (Table) 10/21/18 13:00 Blood Culture - Preliminary Blood No Growth after 24 hours 10/21/18 10:27 Blood Culture - Preliminary Blood No Growth after 24 hours Assessment and Plan Assessment: #1 anemia with GI bleeding #2 history of CAD status post CABG #3 troponin elevation on a down trend from recent admission with non-ST segment elevation TN a week ago #4 end-stage renal disease, on hemodialysis #5 hyperlipidemia Plan: From cardiac standpoint, we will continue current medications. We will follow the patient on as-needed basis at this point. Please do not hesitate to contact us with questions. TECHNICAL PRODUCT MANAGER note has been reviewed, I agree with a documented findings and plan of care. Patient was seen and examined.
[2018-10-23 16:11] LABS: Iron Saturation 9.09 (15.00-50.00)
--- NOTE | 2018-10-23 17:07 | PN ---
PROGRESS NOTE DATE OF SERVICE: 10/23/2018 This 83-year-old gentleman who was admitted with acute GI bleed had possible erosive gastritis on the EGD and moderate duodenitis. The patient is being treated symptomatically. Patient is receiving hemodialysis. The hemoglobin is rather stable at this time around 7.3, which was 7. The patient did receive one unit of transfusion. No chest pain. No palpitations. No fever. PHYSICAL EXAMINATION: Alert and oriented x2. Pulse 79, blood pressure 166/67, respiration 17, temperature 98.3, pulse ox 93% on room air. HEENT: Conjunctivae normal. Pale. Oral mucosa moist and pale. NECK: No jugular venous distention. No carotid bruit. No lymph node enlargement. CARDIOVASCULAR SYSTEM: S1, S2 muffled. Ejection systolic murmur present. RESPIRATORY SYSTEM: Breath sounds diminished at the bases. A few scattered rhonchi and crackles. ABDOMEN: Soft, non-tender. LEGS: No edema. No swelling. NERVOUS SYSTEM: No focal deficit. LABS: WBC 7.1, hemoglobin 7.3, creatinine 3.43. ASSESSMENT: 1. Acute gastrointestinal bleed with upper gastrointestinal bleeding from possible erosive gastritis as well as some moderate duodenitis, status post esophagogastroduodenoscopy. 2. Acute blood loss anemia. 3. History of previous recurrent gastrointestinal bleed with peptic ulcer disease. 4. Chronic renal failure, stage IV, on hemodialysis. 5. Hyponatremia. 6. Lactic acid elevated at 3.1, possibly secondary to renal failure. 7. Troponin 0.027. 8. History of coronary artery disease, coronary artery bypass grafting. 9. History of chronic kidney disease with chronic renal failure, stage IV, on hemodialysis. 10.Hypertension. 11.Hyperlipidemia. 12.History of myocardial infarction. 13.History of degenerative joint disease. 14.History of rheumatoid arthritis. 15.History of gout. 16.History of sacral decubitus, stage II. 17.History of methicillin-resistant Staphylococcus aeruginosa, vancomycin-resistant Enterococcus. 18.History of coronary artery disease, coronary artery bypass grafting. 19.History of nicotine dependence. 20.History of degenerative joint disease. 21.History of lithotripsy. RECOMMENDATIONS AND DISCUSSION: I recommend to continue current medications, continue with the monitoring, symptomatic treatment. Otherwise, will follow the hemoglobin closely. Hemodialysis. PT/OT evaluation. Further recommendations to follow. Avoid anticoagulants. MMODL / IJN: [id number] /
--- NOTE | 2018-10-23 22:14 | PN ---
PROGRESS NOTE DATE OF SERVICE: 10/23/2018 REASON FOR FOLLOWUP: 1. MSSA bacteremia. 2. Stage II sacral/bilateral gluteal pressure ulcer. INTERVAL HISTORY: The patient is afebrile. The patient is breathing comfortably. The patient denies having any chest pain, shortness of breath or cough. No abdominal pain. No further bleeding per rectum and no pain in his bilateral gluteal area. PHYSICAL EXAMINATION: Blood pressure is 134/78 with a pulse of 89, temperature 97.3. He is 98% on room air. General description is an elderly male lying in bed in no distress. RESPIRATORY SYSTEM: Unlabored breathing. Clear to auscultation anteriorly. HEART: S1, S2. Regular rate and rhythm. ABDOMEN: Soft. No tenderness. LABS: Hemoglobin 7.3, white count 7.1. BUN of 41, creatinine 3.43. Blood culture has been negative here. DIAGNOSTIC IMPRESSION AND PLAN: 1. Patient with methicillin-susceptible Staphylococcus aeruginosa bacteremia in this patient who did have extensive workup has been negative. Currently on cefazolin 1 gram q.12, to continue to finish a 2-week course of therapy. 2. Patient with bilateral jama gluteal/sacral pressure ulcer. Local wound care with Aquacel Silver dressing. Keep the area off pressure. MMODL / IJN: [id number] /
--- NOTE | 2018-10-23 22:25 | P.PN ---
Subjective Progress Note Date: 10/23/18 Principal diagnosis: Anemia secondary to iron deficiency and chronic disease, gastritis, duodenitis Patient lying in bed reporting that he is tolerating his diet. Still reporting some constipation but does feel improvement with MiraLAX therapy. No nausea or vomiting. Objective - Vital Signs Vital signs: Vital Signs Temp 97.3 F L 10/23/18 21:31 Pulse 89 10/23/18 21:31 Resp 18 10/23/18 21:31 BP 134/78 10/23/18 21:31 Pulse Ox 98 10/23/18 21:31 Intake & Output 10/23/18 10/23/18 10/24/18 06:59 18:59 06:59 Intake Total 340 960 50 Balance 340 960 50 Weight 93.5 kg Intake: Intake, IV Titration 50 Amount ceFAZolin 1,000 mg In 50 Sodium Chloride 0.9% 50 ml @ 100 mls/hr IVPB Q12HR RINA Rx#:[id number] Oral 340 960 Other: Voiding Method Urinal Urinal Urinal Diaper Diaper Diaper # Bowel Movements 1 - Exam On physical examination, patient appears comfortable in no apparent distress. HEAD: Normocephalic, atraumatic. EYES: No scleral icterus. No conjunctival injection. MOUTH: No lesions, tongue midline. NECK: Trachea midline, no gross abnormalities. CHEST: Decreased air entry bilaterally. HEART: S1-S2 appreciated. ABDOMEN: Soft, obese. Bowel sounds are positive. No organomegaly. No guarding or rigidity. EXTREMITIES: No pedal edema. SKIN: No rashes, no jaundice. NEUROLOGIC: Alert and oriented x3. No focal deficits. - Labs CBC & Chem 7: 10/23/18 07:24 10/23/18 07:24 Labs: Abnormal Lab Results - Last 24 Hours (Table) 10/21/18 10/23/18 10/23/18 Range/Units 10:30 07:24 07:24 RBC 2.67 L (4.30-5.90) m/uL Hgb 7.3 L (13.0-17.5) gm/dL Hct 23.4 L (39.0-53.0) % RDW 19.0 H (11.5-15.5) % Plt Count 117 L (150-450) k/uL Lymphocytes # (Manual) 0.85 L (1.0-4.8) k/uL Chloride 109 H (98-107) mmol/L BUN 41 H (9-20) mg/dL Creatinine 3.43 H (0.66-1.25) mg/dL Glucose 121 H (74-99) mg/dL Plasma Lactic Acid Jac (0.7-2.0) mmol/L Uric Acid (3.5-8.5) mg/dL Calcium 7.9 L (8.4-10.2) mg/dL Iron 23 L (65-175) ug/dL Iron Saturation 9.09 L (15.00-50.00) 10/23/18 10/23/18 Range/Units 17:38 17:57 RBC (4.30-5.90) m/uL Hgb (13.0-17.5) gm/dL Hct (39.0-53.0) % RDW (11.5-15.5) % Plt Count (150-450) k/uL Lymphocytes # (Manual) (1.0-4.8) k/uL Chloride (98-107) mmol/L BUN (9-20) mg/dL Creatinine (0.66-1.25) mg/dL Glucose (74-99) mg/dL Plasma Lactic Acid Jac 2.5 H* (0.7-2.0) mmol/L Uric Acid 2.8 L (3.5-8.5) mg/dL Calcium (8.4-10.2) mg/dL Iron (65-175) ug/dL Iron Saturation (15.00-50.00) Microbiology - Last 24 Hours (Table) 10/22/18 13:00 Blood Culture Gram Stain - Preliminary Blood 10/21/18 13:00 Blood Culture - Final Blood 10/21/18 10:27 Blood Culture - Preliminary Blood No Growth after 48 hours Assessment and Plan (1) GI bleed Narrative/Plan: 83-year-old with multiple medical comorbidities including prior GI bleeding and multiple endoscopies in the past year with last EGD in September showing moderate to severe gastritis with superficial antral ulcers, a hiatal hernia and moderate duodenitis and colonoscopy this year significant for diverticulosis, internal hemorrhoids and polypectomy. He presented with complaints of dark stool concern for GI bleed. Hemoglobin was stable at 7.3 today. The patient had EGD yesterday was significant findings of erosive gastritis with 2 small focal areas of bleeding treated with gold probe cauterization and moderate duodenitis. Current Visit: Yes Status: Acute Code(s): K92.2 - GASTROINTESTINAL HEMORRHAGE, UNSPECIFIED SNOMED Code(s): 98430080 (2) Normocytic anemia Narrative/Plan: Patient with end-stage renal disease with normocytic anemia, secondary to multiple factors including anemia of chronic disease in the setting of ESRD, and iron deficiency due to findings of erosive gastritis and duodenitis on EGD. Current Visit: Yes Status: Acute Code(s): D64.9 - ANEMIA, UNSPECIFIED SNOMED Code(s): 633157787 Plan: Supportive care Continue Protonix therapy Okay for diet Continue monitor hemoglobin and hematocrit and transfuse as needed Avoid NSAID use Iron studies consistent with deficiency with iron supplementation initiated Endoscopy performed in significant for erosive gastritis and duodenitis No plans for further endoscopic evaluation Thank you for allowing us to participate in the care this patient, the gastroenterology service will stand by, please call us back with any questions or concerns
[2018-10-24] MEDS: PANTOPRAZOLE 40 MG TABLET PO SCH ×2 (06:25→17:01)
[2018-10-24] MEDS: HYDROcodone/APAP 10-325MG 1 EACH TAB PO PRN ×3 (06:26→21:55)
[2018-10-24] MEDS: FERROUS SULFATE 325 MG TAB PO SCH ×2 (06:26→17:01)
[2018-10-24] MEDS: AMIODARONE 100 MG TAB PO SCH (08:28)
[2018-10-24] MEDS: METOPROLOL TARTRATE 12.5 MG TAB PO SCH ×2 (08:28→17:01)
[2018-10-24] MEDS: ATORVASTATIN 40 MG TAB PO SCH (08:28)
[2018-10-24] MEDS: MIDODRINE 5 MG TAB PO SCH ×3 (08:28→17:01)
[2018-10-24] MEDS: ALLOPURINOL 100 MG TAB PO SCH (08:28)
[2018-10-24] MEDS: NYSTATIN 100,000 UNIT/GM POWD 15 GM TOPICAL SCH ×2 (08:29→20:43)
[2018-10-24] MEDS: HYDROCORTISONE SUPPOSITORY 25 MG SUPP RECTAL SCH (08:29)
--- NOTE | 2018-10-24 09:27 | PN ---
PROGRESS NOTE The patient is a seen for followup for end-stage renal disease. He is due for hemodialysis today. He is complaining of pain in his right big toe. PHYSICAL EXAMINATION: This morning blood pressure was 126/82, heart rate 82 per minute. Patient is afebrile. Examination of the heart S1, S2. Examination of the lungs, bilateral breath sounds are heard. Abdomen is soft, nontender. Examination of lower extremities shows edema 1+ bilaterally, upper and lower extremities. There is tenderness noted in the right big toe. The SEISMOGRAPHER exam is grossly intact. LABS: Not available from today. Hemoglobin was 7.3 yesterday. ASSESSMENT: 1. End-stage renal disease, on hemodialysis on a Friday, , Friday schedule. Patient will be dialyzed today. 2. Gastrointestinal bleed status post EGD which showed erosive gastritis. Two focal areas of oozing which were cauterized. There was moderate duodenitis noted as well. 3. Volume overload, currently improved than 1-2 weeks ago. 4. Recent MSSA bacteremia from cellulitis. 5. Chronic hypotension maintained on midodrine. PLAN: Hemodialysis today and maintain off of prednisone for now and control pain. MMODL / IJN: [id number] /
[2018-10-24] MEDS ORDERED: MIDODRINE 5 MG TAB PO ONE (09:59)
[2018-10-24 15:15] LABS: Anisocytosis Slight; HCT 23.1 % (39.0-53.0); HGB 7.3 gm/dL (13.0-17.5); Hypochromasia Marked; MCHC 31.6 g/dL (31.0-37.0); MCV 88.5 fL (80.0-100.0); Mean Platelet Volume 8.5; Platelet Count 135 k/uL (150-450); Poikilocytosis Marked; RBC 2.61 m/uL (4.30-5.90); RDW 19.9 % (11.5-15.5); WBC 9.1 k/uL (3.8-10.6)
[2018-10-24 15:28] LABS: Eosinophils # (M) 0.09 k/uL (0-0.7); Lymphocytes # (M) 1.18 k/uL (1.0-4.8); Neutrophils # (M) 6.83 k/uL (1.3-7.7); Neutrophils % (M) 75 %; Nucleated Red Blood Cells 0 /100 WBC (0-0); Total Cells Counted 100
--- NOTE | 2018-10-24 15:41 | PN ---
PROGRESS NOTE DATE OF SERVICE: 10/24/2018 This 83-year-old gentleman who was admitted with acute GI bleed with upper GI bleeding from possibly erosive gastritis as well as moderate duodenitis had an EGD. The patient is being closely monitored. No chest pain. No palpitations. No fever. Today's hemoglobin is not available. Yesterday it was 7.3. Lactic acid normalized at 1.1. No chest pain. No palpitations. No fever. On exam, alert and oriented x3. Pulse 74, blood pressure 92/47, respiration 16, temperature 97.6, pulse ox 97% on room air. HEENT: Conjunctivae normal. NECK: No jugular venous distention. CARDIOVASCULAR SYSTEM: S1, S2 muffled. RESPIRATORY SYSTEM: Breath sounds diminished at the bases. A few scattered rhonchi. ABDOMEN: Soft, obese. LEGS: Minimal edema. NERVOUS SYSTEM: Diffusely weak. LABS: WBC 7.1, hemoglobin 7.3 from yesterday. Creatinine 3.43. ASSESSMENT: 1. Acute gastrointestinal bleed with upper gastrointestinal bleeding with possibly erosive gastritis as well as moderate duodenitis, status post esophagogastroduodenoscopy. 2. Acute blood loss anemia. 3. History of previous recurrent gastrointestinal bleed with peptic ulcer disease. 4. Chronic renal failure, stage IV, on hemodialysis. 5. Hyponatremia. 6. Lactic acid elevated up to 3.1, possibly secondary to renal failure, improved. 7. Troponin 0.027, indeterminate, of undetermined etiology. 8. History of coronary artery disease, coronary artery bypass grafting. 9. History of chronic kidney disease with chronic renal failure, stage IV, on hemodialysis. 10.Hypertension. 11.Hyperlipidemia. 12.History of myocardial infarction. 13.History of degenerative joint disease. 14.History rheumatoid arthritis. 15.History of gout. 16.History of sacral decubitus, stage II. 17.History of methicillin-resistant Staphylococcus aeruginosa, vancomycin-resistant Enterococcus. 18.History of coronary artery disease, coronary artery bypass grafting. 19.History of nicotine dependence. 20.History of lithotripsy. RECOMMENDATIONS AND DISCUSSION: In this 83-year-old gentleman who presented with multiple complex medical issues, at this time I recommend to continue the current medications. Repeat labs. Continue the rest of the medications. Add Carafate to the current regimen. Guarded prognosis because of multiple complex medical issues. Further recommendations to follow. MMODL / IJN: [id number] /
[2018-10-24] MEDS: SUCRALFATE 1 GM TAB PO SCH ×2 (17:01→20:37)
--- NOTE | 2018-10-24 21:14 | PN ---
PROGRESS NOTE DATE OF SERVICE: 10/24/2018. REASON FOR FOLLOW UP: 1. MSSA bacteremia. 2. Positive blood culture with micrococcus line contamination. 3. Bilateral gluteal stage II pressure ulcer, no cellulitis. INTERVAL HISTORY: The patient is currently afebrile. Patient has been breathing comfortably. Patient denies having any chest pain or cough. No abdominal pain. No further bleeding per rectum. No pain to his positive gluteal wound area. PHYSICAL EXAMINATION: Blood pressure 141/49 with a pulse of 85, temperature 97.6. He is 94% on room air. General description is an elderly male lying in bed in no distress. Respiratory system: Unlabored breathing. Clear to auscultation anteriorly. Heart S1, S2. Regular rate and rhythm. Abdomen soft, no tenderness. Extremities: No edema of the feet. LABS: Hemoglobin 7.8, white count 9.1. Blood cultures with . DIAGNOSTIC IMPRESSION/PLAN: 1. Patient with MSSA bacteremia, source likely skin for which the patient currently covered with cefazolin 1 g q.12h, to finish a 2 week course of therapy. 2. Patient with one positive blood culture with micrococcus likely contamination, no need for further workup for the same. Follow up blood culture has been order, those will be followed. 3. Patient with bilateral gluteal pressure ulcer. Continue local wound care with Aquacel Silver dressing to keep the area off the pressure. MMODL / IJN: [id number] /
[2018-10-24 23:54] LABS: Anisocytosis Slight; Hypochromasia Marked; MCH 28.2 pg (25.0-35.0); MCHC 31.7 g/dL (31.0-37.0); Mean Platelet Volume 8.9; Platelet Count 126 k/uL (150-450); Poikilocytosis Moderate; RBC 2.47 m/uL (4.30-5.90); RDW 19.5 % (11.5-15.5)
[2018-10-25 00:05] LABS: Calcium 7.4 mg/dL (8.4-10.2); Potassium 3.8 mmol/L (3.5-5.1)
[2018-10-25 00:37] LABS: Eosinophils # (M) 0.16 k/uL (0-0.7); Lymphocytes # (M) 0.55 k/uL (1.0-4.8); Monocytes # (M) 1.33 k/uL (0-1.0); Neutrophils # (M) 5.77 k/uL (1.3-7.7); Neutrophils % (M) 74 %; Nucleated Red Blood Cells 1 /100 WBC (0-0); Polychromasia Present; Total Cells Counted 200; WBC 7.8 k/uL (3.8-10.6)
[2018-10-25] MEDS: HYDROcodone/APAP 10-325MG 1 EACH TAB PO PRN ×5 (02:22→21:44)
[2018-10-25] MEDS: FERROUS SULFATE 325 MG TAB PO SCH (06:03)
[2018-10-25] MEDS: PANTOPRAZOLE 40 MG TABLET PO SCH ×2 (06:03→17:32)
[2018-10-25] MEDS: SUCRALFATE 1 GM TAB PO SCH ×4 (06:03→21:43)
[2018-10-25] MEDS: MIDODRINE 5 MG TAB PO SCH ×3 (08:54→17:32)
[2018-10-25] MEDS: METOPROLOL TARTRATE 12.5 MG TAB PO SCH ×2 (08:54→17:31)
[2018-10-25] MEDS: NYSTATIN 100,000 UNIT/GM POWD 15 GM TOPICAL SCH ×2 (08:54→21:43)
[2018-10-25] MEDS: AMIODARONE 100 MG TAB PO SCH (08:54)
[2018-10-25] MEDS: ATORVASTATIN 40 MG TAB PO SCH (08:54)
[2018-10-25] MEDS: ALLOPURINOL 100 MG TAB PO SCH (08:54)
[2018-10-25] MEDS: HYDROCORTISONE SUPPOSITORY 25 MG SUPP RECTAL SCH (08:54)
[2018-10-25 11:03] LABS: Calcium 7.8 mg/dL (8.4-10.2); Potassium 3.5 mmol/L (3.5-5.1)
[2018-10-25 11:19] LABS: Anisocytosis Slight; HCT 22.9 % (39.0-53.0); Hypochromasia Marked; MCH 27.8 pg (25.0-35.0); MCHC 30.1 g/dL (31.0-37.0); MCV 92.1 fL (80.0-100.0); Mean Platelet Volume 9.1; Platelet Count 137 k/uL (150-450); Poikilocytosis Moderate; RBC 2.48 m/uL (4.30-5.90); WBC 7.9 k/uL (3.8-10.6)
[2018-10-25 11:32] LABS: HGB 6.9 gm/dL (13.0-17.5)
[2018-10-25] MEDS ORDERED: DARBEPOETIN ALFA 60 MCG/0.3 ML SYRINGE SQ SCH (12:00)
--- NOTE | 2018-10-25 12:02 | PN ---
PROGRESS NOTE The patient is seen for followup for end-stage renal disease. He is currently lying in bed. He is comfortable. Patient denies any significant complaints. He is maintained on Friday, , Friday schedule for dialysis. PHYSICAL EXAMINATION: On examination, blood pressure this morning 131/77, heart rate 77 per minute. He is afebrile. Examination of the heart S1, S2. Examination of the lungs, bilateral breath sounds are heard. Abdomen is soft, nontender. Examination of lower extremities shows 1+ edema upper and lower extremities. BINDERY SUPERVISOR exam is grossly intact. Patient moving all 4 extremities. LAB: Show hemoglobin 7.0, sodium 137, potassium 3.8. ASSESSMENT: 1. End-stage renal disease, on hemodialysis on a Friday, , Friday schedule. 2. Anemia secondary to anemia of chronic disease and as well as chronic GI bleed. 3. Recent MSSA bacteremia. 4. Generalized debility. 5. Chronic kidney disease mineral bone disorder. PLAN: Next dialysis on Friday. Add Aranesp for anemia. Continue off of prednisone for now. Encourage increased oral intake. Continue with the midodrine as well. MMODL / IJN: [id number] /
[2018-10-25 12:16] LABS: Eosinophils # (M) 0.32 k/uL (0-0.7); Lymphocytes # (M) 0.63 k/uL (1.0-4.8); Monocytes # (M) 0.87 k/uL (0-1.0); Myelocytes # (M) 0.08 k/uL (0); Myelocytes % 1 %; Neutrophils # (M) 6.16 k/uL (1.3-7.7); Neutrophils % (M) 78 %; Nucleated Red Blood Cells 0 /100 WBC (0-0); Total Cells Counted 200
[2018-10-25 12:18] LABS: Polychromasia Present
--- NOTE | 2018-10-25 19:20 | PN ---
PROGRESS NOTE DATE OF SERVICE: 10/25/2018 This 83-year-old gentleman who was admitted with acute gastrointestinal bleed and possible erosive gastritis and moderate duodenitis, also had some continued nausea. At this time the patient being closely monitored. The blood culture showed micrococcus species. Patient on broad IV antibiotics and hemoglobin has dropped to 6.9 today. Creatinine is 3.3. PAST MEDICAL HISTORY: Reviewed. REVIEW OF SYSTEMS: CARDIOVASCULAR: No angina or palpitations. RESPIRATION: As mentioned earlier. GI: As mentioned earlier. : No dysuria or hematuria. CENTRAL NERVOUS SYSTEM: No focal deficits. CURRENT MEDICATIONS ARE: Reviewed and include: 1. Tylenol 500 mg q.6h p.r.n. 2. [place] 10 mg q.4 p.r.n. 3. Zyloprim. 4. Xanax. 5. Cordarone 100 mg p.o. daily. 6. Lipitor 40 mg daily. 7. Cefazolin 1 g IV b.i.d. 8. Iron sulfate 600 mg every 7 days. 9. Iron sulfate 320 mg b.i.d. 10.Anusol-HC 25 mg daily p.r.n. 11.Dilaudid p.r.n. 12.Lopressor. 13.ProAmatine. 14.Mycostatin. 15.Protonix. 16.Carafate. PHYSICAL EXAM: Patient is alert, oriented x2. Pulse 70. Blood pressure is 124/60, respirations 16, temperature 97.2, pulse ox 98% on room air. HEENT: Conjunctivae normal. NECK: No JVD. CARDIOVASCULAR: S1, S2 muffled. RESPIRATIONS: Breath sounds diminished in the bases. Scattered rhonchi and crackles. ABDOMEN: Soft, some mild discomfort. No mass palpable. LEGS are no edema, no swelling. CENTRAL NERVOUS SYSTEM: No focal deficits. LAB STUDIES: WBC 11.7, hemoglobin 6.9, platelets are 137. Sodium 138, potassium 3.5, creatinine 3.30. ASSESSMENT: 1. Acute gastrointestinal bleed with upper gastrointestinal bleeding with possibly erosive gastritis as well as moderate duodenitis status post EGD. 2. Acute blood loss anemia. 3. History of previous recurrent gastrointestinal bleed with peptic ulcer disease. 4. Chronic renal failure stage 4 on hemodialysis. 5. Hyponatremia. 6. Lactic acid elevated to 3.1, possibly secondary to renal failure improved. 7. Troponin 0.027, indeterminate, undetermined etiology. 8. Micrococcus from the blood. 9. History of coronary artery disease, coronary artery bypass grafting. 10.History of chronic kidney disease, chronic renal failure stage 4 on hemodialysis. 11.Hypertension. 12.Hyperlipidemia. 13.History of myocardial infarction. 14.History of degenerative joint disease. 15.History of rheumatoid arthritis. 16.History of gout. 17.History of sacral decubitus stage II. 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 19.History of coronary artery disease, coronary artery bypass grafting. 20.History of nicotine dependence. 21.History of lithotripsy. RECOMMENDATIONS AND DISCUSSION: Recommend to continue current management and continue symptomatic treatment. The patient's hemoglobin has dropped to 6.9 today. I would recommend one unit transfusion if okay with Nephrology. Closely follow. Continue the hemodialysis. PT/OT evaluation, possible ECF rehab. Otherwise also recommend continue the current medications and monitor closely. Avoid the antiplatelet agents. Hold iron for some time for now and restart once the patient's hemoglobin is stable. Otherwise IV iron may be considered as an option. Otherwise, prognosis guarded because of multiple complex medical conditions. See orders for details. MMODL / IJN: [id number] /
--- NOTE | 2018-10-25 20:50 | PN ---
PROGRESS NOTE DATE OF SERVICE: 10/25/2018. REASON FOR FOLLOWUP: 1. MSSA bacteremia. 2. Bilateral gluteal stage II pressure ulcer. INTERVAL HISTORY: The patient is currently afebrile. The patient noticed to have dip in hemoglobin to 6.8. Currently getting blood transfusion. The patient denies having any chest pain, cough or abdominal pain or pain to his bilateral gluteal wound area. He has been complaining of some pain to the right big toe. Currently, no open wound or any redness. PHYSICAL EXAMINATION: Blood pressure 104/60 with a pulse of 70 with a temperature 97.9. He is 99% on room air. General description is an elderly male lying in bed in no distress. RESPIRATORY SYSTEM: Unlabored breathing. Clear to auscultation anteriorly. HEART: S1, S2. Regular rate and rhythm. ABDOMEN: Soft, no tenderness. Right big toe currently, no open wound. No swelling, no redness. LABS: Hemoglobin is 6.8, white count 7.8. BUN of 34, creatinine 3.30. Blood culture with micrococcus species. Patient repeat blood culture so far negative. DIAGNOSTIC IMPRESSION/PLAN: 1. Patient with MSSA bacteremia with initial diagnosis at [facility]. He did have extensive workup that was negative for deep infection including a negative COLLEEN and MRI. The patient is currently Cefazolin which will be sufficient to finish a 2 week course of therapy. 2. Positive blood culture, micrococcus, likely contaminant. Follow up blood culture has been negative. No need for further workup for the same. 3. Bilateral gluteal stage II pressure ulcer. Local care with Aquacel Silver dressing. Keep the area dry and off the pressure. MMODL / IJN: [id number] /
[2018-10-26] MEDS: HYDROcodone/APAP 10-325MG 1 EACH TAB PO PRN ×4 (06:25→20:31)
[2018-10-26] MEDS: SUCRALFATE 1 GM TAB PO SCH ×4 (06:25→20:31)
[2018-10-26] MEDS: PANTOPRAZOLE 40 MG TABLET PO SCH ×2 (06:25→16:34)
[2018-10-26 07:16] LABS: Anisocytosis Slight; HCT 26.9 % (39.0-53.0); HGB 8.1 gm/dL (13.0-17.5); Hypochromasia Marked; MCH 27.3 pg (25.0-35.0); MCHC 30.1 g/dL (31.0-37.0); MCV 90.7 fL (80.0-100.0); Mean Platelet Volume 8.1; Platelet Count 141 k/uL (150-450); Poikilocytosis Moderate; RBC 2.96 m/uL (4.30-5.90); RDW 17.9 % (11.5-15.5); WBC 8.3 k/uL (3.8-10.6)
[2018-10-26 07:31] LABS: Calcium 7.8 mg/dL (8.4-10.2); Potassium 3.7 mmol/L (3.5-5.1)
[2018-10-26] MEDS: METOPROLOL TARTRATE 12.5 MG TAB PO SCH ×2 (08:18→16:34)
[2018-10-26] MEDS: ATORVASTATIN 40 MG TAB PO SCH (08:18)
[2018-10-26] MEDS: AMIODARONE 100 MG TAB PO SCH (08:18)
[2018-10-26] MEDS: ALLOPURINOL 100 MG TAB PO SCH (08:18)
[2018-10-26] MEDS: MIDODRINE 5 MG TAB PO SCH ×3 (08:19→16:34)
[2018-10-26] MEDS: NYSTATIN 100,000 UNIT/GM POWD 15 GM TOPICAL SCH ×2 (08:19→20:40)
[2018-10-26] MEDS: HYDROCORTISONE SUPPOSITORY 25 MG SUPP RECTAL SCH (08:19)
[2018-10-26 09:58] LABS: Band Neutrophils % 1 %; Eosinophils # (M) 0.25 k/uL (0-0.7); Lymphocytes # (M) 1.08 k/uL (1.0-4.8); Monocytes # (M) 0.91 k/uL (0-1.0); Neutrophils % (M) 72 %; Nucleated Red Blood Cells 0 /100 WBC (0-0); Total Cells Counted 100
[2018-10-26 09:59] LABS: Polychromasia Present
--- NOTE | 2018-10-26 13:57 | PN ---
PROGRESS NOTE Patient is seen for followup for end-stage renal disease. He is seen this morning. He is lying in bed, not in any acute distress. Patient denies any significant complaints. Blood pressure is 114/57, heart rate 69 per minute. He is afebrile. Examination of the heart S1 and S2. Examination of the lungs, bilateral breath sounds are heard. Decreased breath sounds at bases. Abdomen is soft, nontender. Examination of the lower extremities shows edema 1+ bilaterally, mainly in the upper extremities. The METHODS AND PROCEDURES ANALYST exam shows patient is moving all 4 extremities. LABS: Show hemoglobin 8.1, sodium 138, potassium 3.7, BUN 40, serum creatinine 4.25. ASSESSMENT: 1. End-stage renal disease, on hemodialysis on a Friday, , Friday schedule. We will arrange for hemodialysis in a.m. 2. Anemia secondary to gastrointestinal bleed. Hemoglobin down to 6.9 yesterday. Patient is status post packed RBCs. Hemoglobin at 8.1 today. 3. Volume overload, somewhat improved from about 2 weeks ago. 4. Underlying rheumatoid arthritis. 5. Generalized debility. 6. Recent methicillin-sensitive Staphylococcus aureus bacteremia from cellulitis. 7. Gluteal stage II pressure ulcer. PLAN: Hemodialysis in a.m. UF of about 2 L as tolerated. MMODL / IJN: [id number] /
--- NOTE | 2018-10-26 18:43 | XR ---
EXAMINATION TYPE: XR chest 1V portable DATE OF EXAM: 10/26/2018 Comparison: 10/21/2018 Clinical History: 83-year-old male CHF Findings: Median sternotomy wires are present. Clips. Heart upper limits of normal in size. Small effusions are present mild interstitial prominence. Impression: Small effusions with adjacent atelectasis and/or consolidation. Correlate for possible mild CHF as th e etiology.
--- NOTE | 2018-10-26 19:17 | PN ---
PROGRESS NOTE DATE OF SERVICE: 10/26/2018. REASON FOR FOLLOW UP: 1. MSSA bacteremia skin source. 2. Positive blood culture micrococcus likely contamination. 3. Bilateral gluteal stage II pressure ulcer. INTERVAL HISTORY: The patient is currently afebrile. Patient has been breathing comfortably. The patient denies having any chest pain or cough. No abdominal pain or any diarrhea. PHYSICAL EXAMINATION: Blood pressure 114/57 with a pulse of 69, temperature 98.1. He is 97% on room air. General description is an elderly male lying in bed in no distress. Respiratory system: Unlabored breathing with decreased breath sounds in the bases. No wheeze. Heart S1, S2. Regular rate and rhythm. Abdomen soft, no tenderness. Extremities: No edema of the feet. LABS: Hemoglobin 8.1, white count 8.3, BUN of 14, creatinine 4.25. Blood culture repeat 10/25 has been negative. DIAGNOSTIC IMPRESSION/PLAN: 1. Patient with MSSA bacteremia with initial diagnosis at [facility] in this patient who did have extensive workup including COLLEEN and MRI which has been negative. The patient is currently on IV cefazolin to finish a course of therapy. 2. Positive blood culture with micrococcus likely contaminant. No need for further workup for the same. 3. with bilateral stage II pressure ulcer. No cellulitis. Local wound care with Aquacel Silver dressing to keep area dry off the pressure. MMODL / IJN: [id number] /
--- NOTE | 2018-10-26 22:51 | PN ---
PROGRESS NOTE DATE OF SERVICE: 10/26/2018. This 83-year-old gentleman who was admitted with acute GI bleed and possibly erosive gastritis also had moderate duodenitis. The patient had some nausea, too. The patient is being closely monitored at this time. The patient had multiple transfusions yesterday. The patient received transfusion for hemoglobin of 6.9. Today it is 8.1. No more bleeding is noted. Nephrology is planning hemodialysis tomorrow. The patient is complaining of some shortness of breath, also. Last chest x-ray was done on 10/21/2018. Past medical history reviewed. REVIEW OF SYSTEMS: CARDIOVASCULAR SYSTEM: No angina, palpitations. RESPIRATORY SYSTEM: As mentioned earlier. GI: As mentioned earlier. : As mentioned earlier. NERVOUS SYSTEM: Diffusely weak. CURRENT MEDICATIONS: Reviewed. They include: 1. Tylenol 500 mg q.6 p.r.n. 2. [place] 10 mg q.4 p.r.n. 3. Zyloprim 100 mg p.o. daily. 4. Xanax 0.25 t.i.d. 5. Cordarone 100 mg p.o. daily. 6. Lipitor 40 mg daily. 7. Cefazolin 1 gram b.i.d. 8. Aranesp 60 mg subcutaneously q.7 days. 9. Anusol-HC 25 mg rectally daily. 10.Dilaudid 0.5 q.6 p.r.n. 11.Lopressor 12.5 mg p.o. b.i.d. 12.ProAmatine 10 mg p.o. daily. 13.Mycostatin powder. 14.Protonix 40 mg b.i.d. 15.Carafate 1 gram before meals and at bedtime. PHYSICAL EXAMINATION: Patient is alert, oriented x3. Pulse 74, blood pressure 129/61, respirations 16, temperature 98.1, pulse ox 99% on room air. HEENT: Conjunctivae normal. NECK: No jugular venous distention. CARDIOVASCULAR SYSTEM: S1, S2 muffled. RESPIRATORY SYSTEM: Breath sounds diminished at the bases. Bilateral scattered rhonchi and crackles. Expiratory wheezing also present. ABDOMEN: Soft, non-tender. LEGS: No edema. No swelling. NERVOUS SYSTEM: No focal deficit. LABS: WBC 8.3, hemoglobin 8.1. Sodium 138, potassium 3.7, creatinine 4.25. ASSESSMENT: 1. Acute gastrointestinal bleed with upper gastrointestinal bleeding with possibly erosive gastritis as well as moderate duodenitis, status post esophagogastroduodenoscopy. 2. Acute blood loss anemia, status post transfusions. 3. History of previous recurrent gastrointestinal bleed with peptic ulcer disease. 4. Chronic renal failure, stage IV, on hemodialysis. 5. Hyponatremia. 6. Lactic acid elevated at 3.1, possibly secondary to renal failure, improved. 7. Troponin 0.027, indeterminate, of undetermined etiology. 8. Micrococcus from the blood. 9. History of coronary artery disease, coronary artery bypass grafting. 10.History of chronic kidney disease and chronic renal failure, stage IV, on hemodialysis. 11.Hypertension. 12.Hyperlipidemia. 13.History of myocardial infarction. 14.History of degenerative joint disease. 15.History of rheumatoid arthritis. 16.History of gout. 17.History of sacral decubitus, stage II. 18.History of methicillin-resistant Staphylococcus aeruginosa, vancomycin- resistant Enterococcus .. 19.History of nicotine dependence. 20.History of lithotripsy. RECOMMENDATIONS AND DISCUSSION: I recommend to continue current medications, continue with the monitoring, symptomatic treatment. Otherwise at this time I would recommend repeat labs. Hemoglobin appears to be elevated at 8.1 at this time. We will continue to monitor, order a chest x- ray to rule out the possibility of any fluid overload. Otherwise, closely follow with Gastroenterology as well as Nephrology. Overall prognosis guarded because of multiple complex medical issues. Further recommendations to follow. MMODL / IJN: [id number] / MTDD
[2018-10-27] MEDS: HYDROcodone/APAP 10-325MG 1 EACH TAB PO PRN ×3 (06:01→20:59)
[2018-10-27] MEDS: PANTOPRAZOLE 40 MG TABLET PO SCH ×2 (06:02→18:08)
[2018-10-27] MEDS: SUCRALFATE 1 GM TAB PO SCH ×4 (06:02→20:59)
[2018-10-27 06:21] LABS: Anisocytosis Slight; HCT 27.1 % (39.0-53.0); HGB 8.1 gm/dL (13.0-17.5); Hypochromasia Marked; MCH 27.5 pg (25.0-35.0); MCHC 29.9 g/dL (31.0-37.0); Mean Platelet Volume 7.9; Platelet Count 128 k/uL (150-450); Poikilocytosis Moderate; RBC 2.94 m/uL (4.30-5.90); RDW 18.2 % (11.5-15.5); WBC 7.2 k/uL (3.8-10.6)
[2018-10-27 07:17] LABS: Eosinophils # (M) 0.22 k/uL (0-0.7); Lymphocytes # (M) 1.08 k/uL (1.0-4.8); Monocytes # (M) 1.22 k/uL (0-1.0); Neutrophils # (M) 4.68 k/uL (1.3-7.7); Neutrophils % (M) 65 %; Nucleated Red Blood Cells 0 /100 WBC (0-0); Total Cells Counted 100
[2018-10-27 07:18] LABS: Polychromasia Present
[2018-10-27] MEDS ORDERED: ALBUMIN HUMAN 25% (12.5gm) 50 ML VIAL ONE (07:53)
[2018-10-27] MEDS ORDERED: GELATIN SPONGE,ABSORB (LARGE) 1 EACH SPONGE ONE (07:53)
[2018-10-27] MEDS: ATORVASTATIN 40 MG TAB PO SCH ×2 (10:58→15:39)
[2018-10-27] MEDS: AMIODARONE 100 MG TAB PO SCH ×2 (10:58→15:39)
[2018-10-27] MEDS: MIDODRINE 5 MG TAB PO SCH ×3 (10:59→18:08)
[2018-10-27] MEDS: METOPROLOL TARTRATE 12.5 MG TAB PO SCH ×3 (10:59→15:41)
[2018-10-27] MEDS: HYDROCORTISONE SUPPOSITORY 25 MG SUPP RECTAL SCH ×2 (10:59→15:39)
[2018-10-27] MEDS: ALLOPURINOL 100 MG TAB PO SCH (10:59)
[2018-10-27] MEDS: HYDROmorphone 0.5 MG/0.5 ML SYRINGE IVP PRN (15:37)
[2018-10-27] MEDS: NYSTATIN 100,000 UNIT/GM POWD 15 GM TOPICAL SCH ×2 (15:40→21:00)
--- NOTE | 2018-10-27 16:07 | PN ---
PROGRESS NOTE DATE OF SERVICE: 10/27/2018 REASON FOR FOLLOWUP: 1. MSSA bacteremia. 2. Positive blood culture with micrococcus, likely contamination. 3. Bilateral gluteus stage II pressure ulcers. INTERVAL HISTORY: The patient is currently afebrile. The patient has been breathing comfortably. The patient denies having any chest pain, shortness of breath or cough. No abdominal pain or any diarrhea. PHYSICAL EXAMINATION: Blood pressure is 102/57, pulse 80, temperature 97.7. He is 93% on room air. General description is an elderly male lying in bed in no distress. RESPIRATORY SYSTEM: Unlabored breathing. Clear to auscultation anteriorly. HEART: S1, S2. Regular rate and rhythm. ABDOMEN: Soft. No tenderness. LABS: Hemoglobin 8.1, white count 7.2. BUN of 51, creatinine 4.94. Blood culture repeat from 10/25/2018 has been negative. DIAGNOSTIC IMPRESSION AND PLAN: 1. Patient with methicillin-susceptible Staphylococcus aeruginosa [facility] with extensive workup, negative for currently on IV cefazolin 1 gram q.12; to finish a 2-week course of therapy. 2. Positive blood culture with micrococcus, likely contaminant. No need for further therapy for the same. 3. Bilateral gluteus stage II pressure ulcers. Local care to continue with Aquacel Silver dressing. Keep the area off pressure. MMODL / IJN: [id number] /
--- NOTE | 2018-10-27 17:13 | PN ---
PROGRESS NOTE Patient is seen for followup for end-stage renal disease. This morning he is seen on dialysis. The patient is not able to tolerate his dialysis well. His blood pressure dropped significantly, even after the midodrine. We have not been able to take off much fluid today. We will try again tomorrow with only ultrafiltration. No significant complaints. I did discuss with the patient regarding his overall general condition and the fact that we may need to consider other options down the road, depending on how he tolerates his dialysis, including possible change of code status. On examination, this morning, blood pressure was 102/57, heart rate 80 per minute. He is afebrile. EXAMINATION OF THE HEART: S1 and S2. EXAMINATION OF LUNGS: Bilateral breath sounds are heard. Decreased breath sounds at bases. ABDOMEN: Soft, non-tender. Examination of lower extremities shows edema 1+ bilaterally. Chronic skin changes are noted. Upper extremities are more swollen. Labs show hemoglobin 8.1, sodium 138, potassium 4.0, BUN 51, serum creatinine 4.9. ASSESSMENT: 1. End-stage renal disease, on hemodialysis on a Friday, , Friday schedule. We will dialyze the patient again tomorrow, as he was not able to tolerate his treatment well. Tomorrow's treatment will be mainly for volume overload and ultrafiltration. 2. Gastrointestinal bleed, currently stable. 3. Generalized debility. 4. History of rheumatoid arthritis, currently off of prednisone. 5. Recent methicillin-susceptible Staphylococcus aeruginosa bacteremia from cellulitis, right foot, currently improved. PLAN: Hemodialysis today and we will repeat in a.m. mainly for ultrafiltration. Patient is encouraged to increase his oral intake, particularly protein. Continue with the midodrine. Continue with Aranesp. I did briefly discuss with the patient regarding his overall general condition and the fact that if he is not able to tolerate dialysis continuously, we may need to consider changing code status and other options, including hospice. MMODL / IJN: [id number] /
--- NOTE | 2018-10-27 19:02 | P.PN ---
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 Currently hemoglobin is stable. Patient did have a history of multiple EGDs in the past. Patient was started on hemodialysis as per nephrology. Patient did have MSSA bacteremia at [facility]. Repeat blood cultures show Micrococcus. Likely contaminant. 10/27/2018 Patient denied any complains of worsening shortness of breath or chest pain. Patient is hypotensive and was given Midrin before hemodialysis. 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 Nephrology is following. Patient denied any complaints of nausea. No headache or dizziness or lightheadedness.. No fever no chills. Otherwise patient does have generalized weakness. No hematemesis or melena. Creatinine 4.94 today. Current medications reviewed. Active Medications Generic Name Dose Route Start Last Admin Trade Name Freq PRN Reason Stop Dose Admin Acetaminophen 500 mg 10/21/18 18:17 Tylenol Tab PO Q6HR PRN Fever and/ or Pain Hydrocodone Bitart/Acetaminophen 1 each 10/24/18 22:08 10/27/18 11:07 [place] 10 PO 1 each Q4H PRN Administration Pain Allopurinol 100 mg 10/24/18 09:00 10/27/18 10:59 Zyloprim PO 100 mg DAILY RINA Administration Alprazolam 0.25 mg 10/21/18 18:17 10/24/18 21:55 Xanax PO 0.25 mg TID PRN Administration Anxiety Amiodarone HCl 100 mg 10/22/18 09:00 10/27/18 15:39 Cordarone PO 100 mg DAILY RINA Administration Atorvastatin Calcium 40 mg 10/22/18 09:00 10/27/18 15:39 Lipitor PO 40 mg DAILY RINA Administration Darbepoetin Kevin 60 mcg 10/25/18 12:00 10/25/18 12:35 Aranesp SQ 60 mcg Q7D RINA Administration Hydrocortisone Acetate 25 mg 10/24/18 09:00 10/27/18 15:39 Anusol-Hc RECTAL 25 mg DAILY RINA Administration Hydromorphone HCl 0.5 mg 10/21/18 18:17 10/27/18 15:37 Dilaudid IVP 0.5 mg Q6HR PRN Administration Severe Pain Cefazolin Sodium 1,000 mg/ 50 mls @ 100 mls/hr 10/21/18 21:00 10/27/18 10:59 Sodium Chloride IVPB 100 mls/hr Q12HR RINA Administration Albumin Human 50 ml/ IV 50 mls @ 50 mls/hr 10/27/18 14:03 Solution IVPB DAILY PRN Blood Pressure - Low Metoprolol Tartrate 12.5 mg 10/21/18 17:00 10/27/18 15:41 Lopressor PO Not Given BID@0800,1700 RINA Midodrine 10 mg 10/22/18 08:00 10/27/18 18:08 Proamatine PO 10 mg TID@0800,1200,1700 RINA Administration Midodrine 10 mg 10/21/18 18:15 Proamatine PO DAILY PRN DIALYSIS Nystatin 1 applic 10/21/18 21:00 10/27/18 15:40 Mycostatin Powder TOPICAL 1 applic BID RINA Administration Pantoprazole Sodium 40 mg 10/22/18 17:30 10/27/18 18:08 Protonix PO 40 mg AC-BID RINA Administration Sucralfate 1 gm 10/24/18 17:30 10/27/18 18:08 Carafate PO 1 gm ACHS RINA Administration Objective - Vital Signs Vital signs: Vital Signs Temp 97.7 F 10/27/18 08:20 Pulse 80 10/27/18 11:00 Resp 16 10/27/18 11:00 BP 102/57 10/27/18 11:00 Pulse Ox 93 L 10/27/18 11:00 Intake & Output 10/26/18 10/27/18 10/27/18 18:59 06:59 18:59 Intake Total 650 240 120 Output Total 400 Balance 650 240 -280 Weight 95.5 kg 90.5 kg Intake: Intake, IV Titration 50 Amount ceFAZolin 1,000 mg In 50 Sodium Chloride 0.9% 50 ml @ 100 mls/hr IVPB Q12HR RINA Rx#:[id number] Oral 600 240 120 Output: Urine 400 Other: Voiding Method Urinal Urinal # Voids 1 - Exam PHYSICAL EXAMINATION: Patient is lying in the bed comfortably, no acute distress, awake alert and oriented.. HEENT: Normocephalic. Neck is supple. Pupils reactive. Nostrils clear. Oral cavity is moist. Ears reveal no drainage. Neck reveals no JVD, carotid bruits, or thyromegaly. CHEST EXAMINATION: Trachea is central. Symmetrical expansion. Bibasilar diminished air entry. Lung cotto clear to auscultation and percussion. CARDIAC: Normal S1, S2 with no gallops. No murmurs ABDOMEN: Soft. Bowel sounds normal. No organomegaly. No abdominal bruits. Extremities: reveal no edema. No clubbing or cyanosis Neurologically awake, alert, oriented x3 with well-coordinated movements. No focal deficits noted Skin: Stage II bilateral gluteal ulcers. No signs of infection.. Psychiatric: Coperative. Nonsuicidal Musculoskeletal: No joint swelling or deformity. Normal range of motion. - Labs CBC & Chem 7: 10/27/18 05:36 10/27/18 05:36 Labs: Abnormal Lab Results - Last 24 Hours (Table) 10/27/18 10/27/18 Range/Units 05:36 05:36 RBC 2.94 L (4.30-5.90) m/uL Hgb 8.1 L (13.0-17.5) gm/dL Hct 27.1 L (39.0-53.0) % MCHC 29.9 L (31.0-37.0) g/dL RDW 18.2 H (11.5-15.5) % Plt Count 128 L (150-450) k/uL Monocytes # (Manual) 1.22 H (0-1.0) k/uL Carbon Dioxide 21 L (22-30) mmol/L BUN 51 H (9-20) mg/dL Creatinine 4.94 H (0.66-1.25) mg/dL Glucose 111 H (74-99) mg/dL Calcium 8.0 L (8.4-10.2) mg/dL Microbiology - Last 24 Hours (Table) 10/21/18 10:27 Blood Culture - Final Blood No Growth after 144 hours 10/25/18 06:51 Blood Culture - Preliminary Blood No Growth after 48 hours Assessment and Plan Assessment: Acute GI bleed was likely upper due to erosive gastritis as well as moderate duodenitis. Status post EGD. Acute blood loss anemia status post transfusions. History of previous recurrent GI bleed with peptic ulcer disease. Acute on chronic kidney disease stage IV. Currently on hemodialysis started. Hyponatremia improving Lactic acidosis 3.1 second to renal failure improved now Troponin level 0.027 intermediate. likely due to CK D Micrococcus bacteremia due to likely contamination History of coronary artery disease status post coronary artery bypass graft Hypertension Hyperlipidemia History of [place] Reason joint disease , Carotid is Gout Stage II's bilateral gluteal ulcers. History of MSSA bacteremia Nicotine dependence History of lithotripsy Plan: Patient be continued on antibiotics in the form of cefazolin. Monitor H&H. Nephrology is following and patient is getting hemodialysis today. Monitor blood pressure prior closely. Otherwise continue the current management and further recommendations based on the clinical course. Prognosis is guarded due to multiple medical problems and compress medical conditions. Time with Patient: Greater than 30
[2018-10-28] MEDS: HYDROmorphone 0.5 MG/0.5 ML SYRINGE IVP PRN (00:19)
[2018-10-28] MEDS: SUCRALFATE 1 GM TAB PO SCH ×4 (06:04→20:05)
[2018-10-28] MEDS: PANTOPRAZOLE 40 MG TABLET PO SCH ×2 (06:05→17:29)
[2018-10-28] MEDS: METOPROLOL TARTRATE 12.5 MG TAB PO SCH ×2 (07:58→17:28)
[2018-10-28] MEDS: MIDODRINE 5 MG TAB PO SCH ×3 (08:07→17:29)
[2018-10-28] MEDS: HYDROcodone/APAP 10-325MG 1 EACH TAB PO PRN ×2 (08:51→14:18)
[2018-10-28] MEDS: ATORVASTATIN 40 MG TAB PO SCH (09:25)
[2018-10-28] MEDS: ALLOPURINOL 100 MG TAB PO SCH (09:25)
[2018-10-28] MEDS: HYDROCORTISONE SUPPOSITORY 25 MG SUPP RECTAL SCH (09:25)
[2018-10-28] MEDS: NYSTATIN 100,000 UNIT/GM POWD 15 GM TOPICAL SCH (09:25)
[2018-10-28] MEDS: AMIODARONE 100 MG TAB PO SCH (09:25)
[2018-10-28] MEDS ORDERED: ALBUMIN HUMAN 25% (12.5gm) 50 ML VIAL ONE ×2 (10:00)
--- NOTE | 2018-10-28 11:05 | PN ---
PROGRESS NOTE The patient is seen for followup for end-stage renal disease. He is currently seen on hemodialysis. The patient is tolerating . We were not able to get much fluid off yesterday with hemodialysis. This morning, blood pressure is slightly better with the albumin and midodrine and we will try to remove 2 to 3 L as tolerated with ultrafiltration. The patient is complaining of pain. He continues to feel quite weak and has not been eating much. He did have breakfast this morning though. PHYSICAL EXAMINATION: On examination, blood pressure was 109/73, heart rate 76 per minute. Patient is afebrile. EXAMINATION OF THE HEART: S1, S2. EXAMINATION OF THE LUNGS: Decreased breath sounds at bases. Abdomen is soft, nontender. Examination of lower extremities shows chronic skin changes, edema 2+ bilaterally, upper and lower extremities. Worse in the upper extremities. LABS: Labs show sodium 138, potassium 4.0, BUN 51, serum creatinine 4.9, hemoglobin 8.1 g/dL. ASSESSMENT: 1. End-stage renal disease, on hemodialysis on a Friday, , Friday schedule and an extra treatment today for volume overload and ultrafiltration. 2. Generalized debility. 3. Recent MSSA bacteremia from right foot cellulitis. 4. Gastrointestinal bleed, status post EGD and packed RBC transfusion, currently stable. The EGD showed erosive gastritis with focal areas of oozing, status post cauterization and moderate duodenitis. 5. History of rheumatoid arthritis, currently off of prednisone. PLAN: Continue ultrafiltration today as tolerated. Overall prognosis is guarded. Patient appears to be much more weaker. We will discuss with . SUSAN / IJN: [id number] /
[2018-10-28] MEDS: ALBUMIN HUMAN 25% 50 ML in EMPTY BAG 1 BAG IVPB PRN (11:26)
[2018-10-28] MEDS ORDERED: ONDANSETRON 4 MG/2 ML VIAL IVP PRN (14:00)
--- NOTE | 2018-10-28 17:02 | PN ---
PROGRESS NOTE DATE OF SERVICE: 10/28/2018 REASON FOR FOLLOWUP: 1. MSSA bacteremia. 2. Bilateral gluteal stage II pressure ulcer. INTERVAL HISTORY: The patient is currently afebrile. The patient has been breathing comfortably. Denies having any chest pain. Occasional cough. No nausea or vomiting. No abdominal pain or any pain to the bilateral gluteal wound area. PHYSICAL EXAMINATION: Blood pressure is 116/71 with a pulse of 90, temperature 97.8. He is 96% on room air. General description is an elderly female lying in bed in no distress. RESPIRATORY SYSTEM: Unlabored breathing. Clear to auscultation anteriorly. HEART: S1, S2. Regular rate and rhythm. ABDOMEN: Soft. No tenderness. LABS: Hemoglobin 8.1, white count 7.2 with a BUN of 51, creatinine 4.94. DIAGNOSTIC IMPRESSION AND PLAN: 1. Patient with methicillin-susceptible Staphylococcus aeruginosa bacteremia, for which the patient will continue on IV cefazolin to finish his course of therapy. 2. Positive culture with micrococcus, likely contaminant. No need for further workup for the same. 3. Bilateral gluteal stage II pressure ulcer. Local care to continue with Aquacel Silver and keep the area off pressure. MMODL / IJN: [id number] /
[2018-10-28] MEDS ORDERED: KETOROLAC 30 MG/ML 1 ML VIAL IVP STA (17:08)
[2018-10-28] MEDS ORDERED: guaiFENesin SYRUP 100MG/5ML 200 MG/10 ML CUP PO PRN (17:09)
[2018-10-29] MEDS: NYSTATIN 100,000 UNIT/GM POWD 15 GM TOPICAL SCH ×3 (00:04→21:37)
[2018-10-29] MEDS: ALBUTEROL NEBULIZED 2.5 MG/3 ML INHALATION PRN ×2 (00:14→11:26)
--- NOTE | 2018-10-29 01:41 | P.PN ---
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 Currently hemoglobin is stable. Patient did have a history of multiple EGDs in the past. Patient was started on hemodialysis as per nephrology. Patient did have MSSA bacteremia at [facility]. Repeat blood cultures show Micrococcus. Likely contaminant. 10/27/2018 Patient denied any complains of worsening shortness of breath or chest pain. Patient is hypotensive and was given Midrin before hemodialysis. 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 Nephrology is following. Patient denied any complaints of nausea. No headache or dizziness or lightheadedness.. No fever no chills. Otherwise patient does have generalized weakness. No hematemesis or melena. Creatinine 4.94 today. 10/28/2018 Patient is currently awake alert and able to communicate. Still having generalized pain and shortness of breath. Nephrology is planning for hemodialysis again today. Otherwise patient is being continued on antibiotics in the form of cefazolin due to recent MSSA bacteremia and patient is also having stage II decub ulcers. Continued on wound care. No fever no chills. Hemoglobin is stable at 8.1 Nephrology and ID is following. Current medications reviewed. Active Medications Generic Name Dose Route Start Last Admin Trade Name Freq PRN Reason Stop Dose Admin Acetaminophen 500 mg 10/21/18 18:17 Tylenol Tab PO Q6HR PRN Fever and/ or Pain Hydrocodone Bitart/Acetaminophen 1 each 10/24/18 22:08 10/27/18 11:07 [place] 10 PO 1 each Q4H PRN Administration Pain Allopurinol 100 mg 10/24/18 09:00 10/27/18 10:59 Zyloprim PO 100 mg DAILY RINA Administration Alprazolam 0.25 mg 10/21/18 18:17 10/24/18 21:55 Xanax PO 0.25 mg TID PRN Administration Anxiety Amiodarone HCl 100 mg 10/22/18 09:00 10/27/18 15:39 Cordarone PO 100 mg DAILY RINA Administration Atorvastatin Calcium 40 mg 10/22/18 09:00 10/27/18 15:39 Lipitor PO 40 mg DAILY RINA Administration Darbepoetin Kevin 60 mcg 10/25/18 12:00 10/25/18 12:35 Aranesp SQ 60 mcg Q7D RINA Administration Hydrocortisone Acetate 25 mg 10/24/18 09:00 10/27/18 15:39 Anusol-Hc RECTAL 25 mg DAILY RINA Administration Hydromorphone HCl 0.5 mg 10/21/18 18:17 10/27/18 15:37 Dilaudid IVP 0.5 mg Q6HR PRN Administration Severe Pain Cefazolin Sodium 1,000 mg/ 50 mls @ 100 mls/hr 10/21/18 21:00 10/27/18 10:59 Sodium Chloride IVPB 100 mls/hr Q12HR RINA Administration Albumin Human 50 ml/ IV 50 mls @ 50 mls/hr 10/27/18 14:03 Solution IVPB DAILY PRN Blood Pressure - Low Metoprolol Tartrate 12.5 mg 10/21/18 17:00 10/27/18 15:41 Lopressor PO Not Given BID@0800,1700 RINA Midodrine 10 mg 10/22/18 08:00 10/27/18 18:08 Proamatine PO 10 mg TID@0800,1200,1700 RINA Administration Midodrine 10 mg 10/21/18 18:15 Proamatine PO DAILY PRN DIALYSIS Nystatin 1 applic 10/21/18 21:00 10/27/18 15:40 Mycostatin Powder TOPICAL 1 applic BID RINA Administration Pantoprazole Sodium 40 mg 10/22/18 17:30 10/27/18 18:08 Protonix PO 40 mg AC-BID RINA Administration Sucralfate 1 gm 10/24/18 17:30 10/27/18 18:08 Carafate PO 1 gm ACHS RINA Administration Objective - Vital Signs Vital signs: Vital Signs Temp 98.9 F 10/28/18 20:00 Pulse 98 10/28/18 20:00 Resp 22 10/28/18 20:00 BP 75/36 10/28/18 20:00 Pulse Ox 98 10/28/18 20:00 Intake & Output 10/28/18 10/28/18 10/29/18 06:59 18:59 06:59 Intake Total 170 Output Total 2200 Balance -2030 Weight 95 kg Intake: Intake, IV Titration 50 Amount ceFAZolin 1,000 mg In 50 Sodium Chloride 0.9% 50 ml @ 100 mls/hr IVPB Q12HR [facility] Rx#:[id number] Oral 120 Output: Hemodialysis 2200 Other: Voiding Method Urinal Urinal # Voids 0 1 - Exam PHYSICAL EXAMINATION: Patient is lying in the bed comfortably, no acute distress, awake alert and oriented.. HEENT: Normocephalic. Neck is supple. Pupils reactive. Nostrils clear. Oral cavity is moist. Ears reveal no drainage. Neck reveals no JVD, carotid bruits, or thyromegaly. CHEST EXAMINATION: Trachea is central. Symmetrical expansion. Bibasilar diminished air entry. Lung cotto clear to auscultation and percussion. CARDIAC: Normal S1, S2 with no gallops. No murmurs ABDOMEN: Soft. Bowel sounds normal. No organomegaly. No abdominal bruits. Extremities: reveal no edema. No clubbing or cyanosis Neurologically awake, alert, oriented x3 with well-coordinated movements. No focal deficits noted Skin: Stage II bilateral gluteal ulcers. No signs of infection.. Psychiatric: Coperative. Nonsuicidal Musculoskeletal: No joint swelling or deformity. Normal range of motion. - Labs CBC & Chem 7: 10/27/18 05:36 10/27/18 05:36 Labs: Microbiology - Last 24 Hours (Table) 10/25/18 06:51 Blood Culture - Preliminary Blood No Growth after 72 hours Assessment and Plan Assessment: Acute GI bleed was likely upper due to erosive gastritis as well as moderate duodenitis. Status post EGD. Acute blood loss anemia status post transfusions. Hemoglobin is currently stable. History of previous recurrent GI bleed with peptic ulcer disease. ESRD on hemodialysis TTS.. Hyponatremia improving Lactic acidosis 3.1 second to renal failure improved now Troponin level 0.027 intermediate. likely due to CK D Micrococcus bacteremia due to likely contamination History of coronary artery disease status post coronary artery bypass graft Hypertension Hyperlipidemia History of [place] Resented to joint disease Gout Stage II's bilateral gluteal ulcers. History of MSSA bacteremia Nicotine dependence History of lithotripsy Plan: Patient be continued on antibiotics in the form of cefazolin. Monitor H&H. Nephrology is following and patient is getting hemodialysis today. Monitor blood pressure prior closely. Otherwise continue the current management and further recommendations based on the clinical course. Prognosis is guarded due to multiple medical problems and compress medical conditions. We discussed with his regarding CODE STATUS and further treatment goals. Time with Patient: Greater than 30
[2018-10-29 06:54] LABS: Calcium 7.9 mg/dL (8.4-10.2); Potassium 4.5 mmol/L (3.5-5.1)
[2018-10-29] MEDS: SUCRALFATE 1 GM TAB PO SCH ×3 (07:04→21:37)
[2018-10-29] MEDS: PANTOPRAZOLE 40 MG TABLET PO SCH (07:04)
[2018-10-29] MEDS: MIDODRINE 5 MG TAB PO SCH ×3 (07:05→19:08)
[2018-10-29 07:17] LABS: Anisocytosis Slight; Hypochromasia Marked; MCH 28.9 pg (25.0-35.0); MCHC 31.3 g/dL (31.0-37.0); MCV 92.2 fL (80.0-100.0); Mean Platelet Volume 8.8; Platelet Count 138 k/uL (150-450); Poikilocytosis Moderate; RBC 1.92 m/uL (4.30-5.90); RDW 19.2 % (11.5-15.5); WBC 11.5 k/uL (3.8-10.6)
[2018-10-29 07:29] LABS: HCT 17.7 % (39.0-53.0); HGB 5.5 gm/dL (13.0-17.5)
[2018-10-29] MEDS: ALBUMIN HUMAN 25% 50 ML in EMPTY BAG 1 BAG IVPB PRN ×2 (09:42→10:17)
[2018-10-29] MEDS ORDERED: ALBUMIN HUMAN 25% (12.5gm) 50 ML VIAL ONE (10:25)
[2018-10-29] MEDS ORDERED: FUROSEMIDE 10 MG/ML 4 ML VIAL IV STA (11:27)
--- NOTE | 2018-10-29 11:52 | XR ---
EXAMINATION TYPE: XR chest 1V portable DATE OF EXAM: 10/29/2018 COMPARISON: 10/26/2018 HISTORY: Shortness of breath TECHNIQUE: Single frontal view of the chest is obtained. FINDINGS: There is an enlarged cardiomediastinal silhouette. Post CABG changes are seen in the chest with redemonstration of an enlarged cardiomediastinal silhouette. There are low lung volumes. Simila r-appearing trace pleural effusions and bibasilar atelectasis. Right-sided PICC is overall stable in position. Diffuse osseous demineralization is seen. No sizable pneumothorax. IMPRESSION: Hypoventilatory lungs and similar-appearing small trace pleural effusions with bibasilar airspace disease.
[2018-10-29 11:53] LABS: Glucose,Whole Blood 117 mg/dL (75-99)
[2018-10-29 11:55] LABS: Glucose,Whole Blood 120 mg/dL (75-99)
[2018-10-29] MEDS ORDERED: IPRATROPIUM-ALBUTEROL 3 ML NEB INHALATION PRN (11:58)
[2018-10-29] MEDS ORDERED: PIPERACILLIN-TAZOBACTAM 3.375 GM in SODIUM CHLORIDE 0.9% 100 ML IVPB SCH (12:00)
[2018-10-29 12:38] LABS: Anisocytosis Slight; Hypochromasia Marked; MCH 28.8 pg (25.0-35.0); MCHC 30.9 g/dL (31.0-37.0); MCV 93.3 fL (80.0-100.0); Mean Platelet Volume 8.5; Platelet Count 140 k/uL (150-450); Poikilocytosis Moderate; RBC 2.79 m/uL (4.30-5.90); RDW 17.1 % (11.5-15.5); WBC 12.6 k/uL (3.8-10.6)
[2018-10-29 12:59] LABS: Band Neutrophils % 4 %; Basophils # (M) 0.13 k/uL (0-0.2); Eosinophils # (M) 0.13 k/uL (0-0.7); Lymphocytes # (M) 0.38 k/uL (1.0-4.8); Neutrophils % (M) 87 %; Nucleated Red Blood Cells 0 /100 WBC (0-0); Total Cells Counted 100
[2018-10-29] MEDS ORDERED: SODIUM CHLORIDE 0.9% 1,000 ML IV ONE ×3 (13:02→17:44)
[2018-10-29 13:03] LABS: Albumin 2.8 g/dL (3.5-5.0); Calcium 8.6 mg/dL (8.4-10.2); Potassium 4.5 mmol/L (3.5-5.1); Total Bilirubin 1.2 mg/dL (0.2-1.3); Total Protein 4.8 g/dL (6.3-8.2)
[2018-10-29] MEDS: PROPOFOL 1,000 MG in EMPTY BAG 1 BAG IV SCH ×3 (13:10→20:46)
[2018-10-29] MEDS ORDERED: ETOMIDATE 2 MG/ML 10 ML VIAL ONE (13:25)
[2018-10-29] MEDS ORDERED: SUCCINYLCHOLINE CHLORIDE VIAL 200 MG/10 ML VIAL IV ONE (13:25)
[2018-10-29 13:26] LABS: Appearance,Urine Turbid (Clear); Bilirubin,Urine Negative (Negative); Blood,Urine Small (Negative); Color,Urine Yellow; Glucose,Urine (UA) Trace (Negative); Ketones,Urine Negative (Negative); Leukocyte Esterase,Urine Large (Negative); Nitrite,Urine Negative (Negative); Protein,Urine 2+ (Negative); RBC,Urine >182 /hpf (0-5); Urobilinogen,Urine <2.0 mg/dL (<2.0); WBC,Urine >182 /hpf (0-5)
[2018-10-29] MEDS: NOREPINEPHRINE 32 MG in SODIUM CHLORIDE 0.9% 218 ML IV SCH (13:30)
[2018-10-29 13:36] LABS: Specific Gravity,Urine 1.012 (1.001-1.035)
[2018-10-29] MEDS: IPRATROPIUM-ALBUTEROL 3 ML NEB INHALATION SCH ×3 (13:47→19:11)
--- NOTE | 2018-10-29 14:00 | XR ---
EXAMINATION TYPE: XR chest 1V DATE OF EXAM: 10/29/2018 COMPARISON: 10/29/2018 HISTORY: Post intubation FINDINGS: There are bilateral pleural effusions with cardiomegaly and bibasilar infiltrate. There is a diffuse interstitial pattern. Postsurgical changes noted. ET tube 3.2 cm above vinod. NG tube appears in good position coursing in the left upper abdomen. Rig ht-sided PICC line at the SVC. Arthropathy of the shoulders. Atherosclerotic change aorta. IMPRESSION: 1. ET tube appears in good position. Correlate for CHF otherwise consider pneumonia. Diffuse pleural- parenchymal changes stable.
[2018-10-29 14:14] LABS: Allen Test Performed? Yes
[2018-10-29 14:15] LABS: ABG Base Excess -9.9 mmol/L; ABG HCO3 15 mmol/L (21-25); ABG PCO2 23 mmHg (35-45); ABG PH 7.41 (7.35-7.45); ABG PO2 82 mmHg (83-108); ABG TCO2 16 mmol/L (19-24)
[2018-10-29] MEDS: AMIODARONE 100 MG TAB PO SCH (14:45)
[2018-10-29] MEDS: HYDROCORTISONE SUPPOSITORY 25 MG SUPP RECTAL SCH (14:45)
[2018-10-29] MEDS: ATORVASTATIN 40 MG TAB PO SCH (14:45)
[2018-10-29] MEDS: METOPROLOL TARTRATE 12.5 MG TAB PO SCH ×2 (14:45→19:08)
[2018-10-29] MEDS: ALLOPURINOL 100 MG TAB PO SCH (14:45)
--- NOTE | 2018-10-29 14:50 | P.CNPUL ---
History of Present Illness Consult date: 10/29/18 Requesting physician: Faby Gaston Reason for consult: dyspnea Chief complaint: Acute septic shock History of present illness: This 83-year-old white male patient that was admitted to the hospital on 10/21/2018 from the local extended care facility for lower GI bleeding, patient presented with maroon-colored stools, and anemia. Patient was recently hospitalized at the [facility] for episode of GI bleeding for which he required blood transfusions. Patient had previously been on Eliquis, had been discontinued since April. 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 Patient was also found to be bacteremic with methicillin susceptible Staphylococcus aeruginosa, and was treated with the IV course of cefazolin which was completed yesterday on 10/28/2018. This admission blood culture was positive with micrococcus which was thought to be a contaminant. Patient was receiving hemodialysis treatments, he did receive a unit of blood on 10/21/2018 on admission for hemoglobin of 7.0, 1 unit on 10/25/2018 for hemoglobin of 6.9, and on this morning's labs his hemoglobin was down to 5.5 from previous 8.1. Patient was started to pass melanotic stools, he did undergo EGD, which showed erosive gastritis with treatment of 2 focal areas of oozing with Gold probe cauterization. This [facility] rapid response team was called with concerns about increased difficulty in breathing, tachypnea, lethargy. Patient was quite congested, lethargic, he did have his hemodialysis treatment today, and receive 2 units of blood with hemodialysis, 2 L of fluid was removed. Stat chest x-ray was obtained showing hypoventilatory lungs and small trace pleural effusions with bibasilar atelectasis that appeared similar to previous chest x-rays. Patient was placed on BiPAP support with pressures of 12/6 and FiO2 of 100%, and transferred to the intensive care unit for further management. In the unit patient was evaluated, was quite tachypneic, with a rate of 30-34, tidal volumes of greater than 1 L, and minute ventilation of 30-35 L/min. Were unable to obtain a blood gas related to poor access, extensive swelling, presence of a AV fistula in the left arm, and right PICC line, general swelling, and extremely fragile skin with multiple skin tears on bilateral upper extremities. Lactic acid was elevated at 6.5, patient is hypotensive with systolic in the 80s and diastolic in the 40s, 2 L of IV fluids is being infused, patient was pancultured, Sparks catheter was inserted, with evidence of gross pyuria. White blood cell count of 12.6, hemoglobin of 8.0, serum sodium is 138, potassium is 4.5, chloride is 104, CO2 was 15, anion gap is 19, B1 is 47, creatinine is 4.47, AST is 95, ALT is 8, a lkaline phosphatase is 174. Zosyn was started for antibiotic coverage. Patient's family is at the bedside, updated on patient's condition, and they wish to proceed with full measures including CPR, resuscitation, and placement on mechanical ventilatory support, as they state the patient was not ready to go to [facility]. Patient was then intubated and placed on mechanical ventilator, femoral arterial line was placed, gases pending. Review of Systems All systems: negative Constitutional: Reports lethargy, Denies chills, Denies fever Eyes: denies blurred vision, denies pain Ears, nose, mouth and throat: Denies headache, Denies sore throat Cardiovascular: Denies chest pain, Denies shortness of breath Respiratory: Reports cough with sputum, Reports dyspnea, Denies cough Gastrointestinal: Reports melena, Denies abdominal pain, Denies diarrhea, Denies nausea, Denies vomiting Musculoskeletal: Denies myalgias Integumentary: Reports wounds, Denies pruritus, Denies rash Neurological: Denies numbness, Denies weakness Psychiatric: Denies anxiety, Denies depression Endocrine: Denies fatigue, Denies weight change Past Medical History Past Medical History: Coronary Artery Disease (CAD), Heart Failure, Dialysis, Hyperlipidemia, Hypertension, Myocardial Infarction ([place]), Osteoarthritis (OA), Renal Disease, Rheumatoid Arthritis (RA), Skin Disorder Additional Past Medical History / Comment(s): heart [place], gout, wound on bottom of left foot, anemia, hemodialysis , hx kidney stones, Pt went into a-fib post-op CABG (2106), also needed prolonged intubation due to a left collaspse lung requiring a brochoscopy and devloped post-op vent associated pneumonia (sputum was positive for pseudomonas) after CABG Last Myocardial Infarction Date:: 04/21/2004 History of Any Multi-Drug Resistant Organisms: MRSA, VRE Date of last positivie culture/infection: 10/27/17 MDRO Source:: 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 Past Drug Use History: None Reported - Past Family History Father Family Medical History: No Reported History Additional Family Medical History / Comment(s): father in a car accident Mother Family Medical History: No Reported History Additional Family Medical History / Comment(s): mother of old age Medications and Allergies Home Medications Medication Instructions Recorded Confirmed Type Aspirin [Adult Low Dose Aspirin EC] 81 mg PO DAILY@1700 02/10/15 10/21/18 History Pantoprazole [Protonix] 40 mg PO AC-BRKFST tablet. 08/16/16 10/21/18 Rx predniSONE 5 mg PO DAILY tab 08/16/16 10/21/18 Rx Atorvastatin [Lipitor] 10 mg PO DAILY 10/07/17 10/21/18 History Allopurinol [Zyloprim] 100 mg PO DAILY 10/21/18 10/21/18 History Amiodarone [Cordarone] 100 mg PO DAILY 10/21/18 10/21/18 History Bisacodyl [Dulcolax] 10 mg RECTAL DAILY PRN 10/21/18 10/21/18 History Calcium Acetate [PhosLo] 667 mg PO TID@0800,1200,1700 10/21/18 10/21/18 History Cefazolin/Detrose 1-4gm/50ml 50 ml IV BID 10/21/18 10/21/18 History Epoetin Kevin [Epogen] 8,000 unit SQ [facility] 10/21/18 10/21/18 History Ferrous Sulfate [Feosol] 325 mg PO DAILY@1700 10/21/18 10/21/18 History Folic Acid 1 mg PO DAILY@17010/21/18 10/21/18 History Hydrocodone/Acetaminophen [[place] 1 tab PO Q6H PRN 10/21/18 10/21/18 History 10-325] Liquacel (Unknown Dose) 1 dose PO BID@0800,1700 10/21/18 10/21/18 History Magnesium Hydroxide [Milk of 2,400 mg PO DAILY PRN 10/21/18 10/21/18 History Magnesia] Metoprolol Tartrate [Lopressor] 12.5 mg PO BID@0800,1700 10/21/18 10/21/18 History Miconazole Af Powder 2% 1 applic TOPICAL BID 10/21/18 10/21/18 History Midodrine HCl [ProAmatine] 10 mg PO DAILY PRN 10/21/18 10/21/18 History Midodrine HCl [ProAmatine] 10 mg PO TID@0800,1200,1700 10/21/18 10/21/18 History Multivitamins, Thera [Multivitamin 1 tab PO DAILY@169910/21/18 10/21/18 History (formulary)] Na Phos,M-B/Na Phos,Di-Ba [Fleet 133 ml RECTAL DAILY PRN 10/21/18 10/21/18 History Adult] Allergies Allergy/AdvReac Type Severity Reaction Status Date / Time No Known Allergies Allergy Verified 10/21/18 10:28 Physical Exam Vitals: Vital Signs Temp Pulse Pulse Resp BP BP BP 10/29/18 11:34 104 H 10/29/18 11:26 103 H 10/29/18 11:03 96.5 F L 96 24 124/49 10/29/18 10:53 96.7 F L 90 26 H 81/53 10/29/18 10:40 96.4 F L 95 22 91/56 10/29/18 10:17 96.2 F L 81 20 169/100 10/29/18 10:09 81 20 100/23 10/29/18 10:07 96.2 F L 10/29/18 08:00 97.6 F 89 20 111/62 07/11/19 04:00 97.8 F 98 20 94/55 10/29/18 00:25 98 10/29/18 00:17 96 10/28/18 23:50 96 20 10/28/18 23:29 98.5 F 96 20 140/93 10/28/18 20:00 98.9 F 98 22 75/36 10/28/18 15:59 104 H 20 107/49 BP Pulse Ox 10/29/18 11:34 10/29/18 11:26 10/29/18 11:03 79 L 10/29/18 10:53 85 L 10/29/18 10:40 86 L 10/29/18 10:17 90 L 10/29/18 10:09 90 L 10/29/18 10:07 10/29/18 08:00 96 10/29/18 04:00 100 10/29/18 00:25 10/29/18 00:17 10/28/18 23:50 10/28/18 23:29 100 10/28/18 20:00 104/59 98 10/28/18 15:59 92 L Intake and Output 10/28/18 10/29/18 10/29/18 22:59 06:59 14:59 Intake Total 50 100 1240 Balance 50 100 1240 Intake: Intake, IV Titration 50 100 0 Amount Sodium Chloride 0.9% 1, 0 000 ml @ 50 mls/hr IV . Q20H RINA Rx#:[id number] ceFAZolin 1,000 mg In 50 100 Sodium Chloride 0.9% 50 ml @ 100 mls/hr IVPB Q12HR RINA Rx#:[id number] Blood Product 1240 As-1 Unit 310 [id number] As-1 Unit 310 [id number] Other: Voiding Method Urinal Urinal Urinal Weight 67 kg GENERAL EXAM: Obtunded, 83-year-old white male, on BiPAP support with pressures of 12/6 and FiO2 of 50%, withdrawing from painful stimuli, tachypnic with respiratory rate in the upper 30s to low 40s at times HEAD: Normocephalic/atraumatic. EYES: Normal reaction of pupils, equal size. Conjunctiva pink, sclera white. NOSE: Clear with pink turbinates. THROAT: No erythema or exudates. NECK: No masses, no JVD, no thyroid enlargement, no adenopathy. CHEST: No chest wall deformity. Symmetrical expansion. LUNGS: Equal air entry with diffuse rhonchi throughout CVS: Regular rate and rhythm, normal S1 and S2, no gallops, no murmurs, no rubs ABDOMEN: Soft, nontender. No hepatosplenomegaly, normal bowel sounds, no guarding or rigidity. EXTREMITIES: No clubbing, edema in the bilateral upper extremities, with multiple skin tears, bruising, no cyanosis, 2+ pulses and upper and lower extremities. Left arm AV shunt, right arm PICC line MUSCULOSKELETAL: Muscle strength and tone normal. SPINE: No scoliosis or deformity SKIN: No rashes CENTRAL NERVOUS SYSTEM: Obtunded, 83-year-old male, on BiPAP support, is about to get intubated. No focal deficits Results - Laboratory Findings CBC and BMP: 10/29/18 12:20 10/29/18 12:20 ABG ABG pH 7.41 (7.35-7.45) 10/29/18 14:06 ABG pCO2 23 mmHg (35-45) L 10/29/18 14:06 ABG pO2 82 mmHg (83-108) L 10/29/18 14:06 ABG O2 Saturation 97.0 % (94-97) 10/29/18 14:06 PT/INR, D-dimer PT 13.6 sec (9.0-12.0) H 10/21/18 10:27 INR 1.3 (<1.2) H 10/21/18 10:27 Abnormal lab findings: Abnormal Labs 10/21/18 10/21/18 10/21/18 10:25 10:27 10:27 WBC RBC 2.58 L Hgb 7.0 L Hct 23.2 L MCHC 30.3 L RDW 18.7 H Plt Count Neutrophils # 8.0 H Neutrophils # (Manual) Lymphocytes # 0.7 L Lymphocytes # (Manual) Monocytes # (Manual) Myelocytes # (Manual) Nucleated RBCs PT INR APTT ABG pCO2 ABG pO2 ABG HCO3 ABG Total CO2 Sodium 136 L Chloride Carbon Dioxide BUN 46 H Creatinine 4.17 H Glucose 199 H POC Glucose (mg/dL) Plasma Lactic Acid Jac 3.1 H* Uric Acid Calcium 7.9 L Iron Iron Saturation AST 63 H ALT 10 L Alkaline Phosphatase 209 H Troponin I Total Protein 4.2 L Albumin 2.0 L Urine Protein Urine Glucose (UA) Urine Blood Ur Leukocyte Esterase Urine RBC Urine WBC Urine WBC Clumps Crossmatch 10/21/18 10/21/18 10/21/18 10:27 10:27 10:27 WBC RBC Hgb Hct MCHC RDW Plt Count Neutrophils # Neutrophils # (Manual) Lymphocytes # Lymphocytes # (Manual) Monocytes # (Manual) Myelocytes # (Manual) Nucleated RBCs PT 13.6 H INR 1.3 H APTT 30.8 H ABG pCO2 ABG pO2 ABG HCO3 ABG Total CO2 Sodium Chloride Carbon Dioxide BUN Creatinine Glucose POC Glucose (mg/dL) Plasma Lactic Acid Jac Uric Acid Calcium Iron Iron Saturation AST ALT Alkaline Phosphatase Troponin I 0.327 H* Total Protein Albumin Urine Protein Urine Glucose (UA) Urine Blood Ur Leukocyte Esterase Urine RBC Urine WBC Urine WBC Clumps Crossmatch See Detail 10/21/18 10/21/18 10/22/18 10:30 13:00 06:15 WBC RBC Hgb Hct MCHC RDW Plt Count Neutrophils # Neutrophils # (Manual) Lymphocytes # Lymphocytes # (Manual) Monocytes # (Manual) Myelocytes # (Manual) Nucleated RBCs PT INR APTT ABG pCO2 ABG pO2 ABG HCO3 ABG Total CO2 Sodium Chloride Carbon Dioxide BUN Creatinine Glucose POC Glucose (mg/dL) Plasma Lactic Acid Jac 2.2 H* Uric Acid Calcium Iron 23 L Iron Saturation 9.09 L AST ALT Alkaline Phosphatase Troponin I 0.286 H* Total Protein Albumin Urine Protein Urine Glucose (UA) Urine Blood Ur Leukocyte Esterase Urine RBC Urine WBC Urine WBC Clumps Crossmatch 10/22/18 10/22/18 10/23/18 06:15 06:15 07:24 WBC RBC 2.77 L 2.67 L Hgb 7.7 L 7.3 L Hct 24.6 L 23.4 L MCHC RDW 18.2 H 19.0 H Plt Count 141 L 117 L Neutrophils # Neutrophils # (Manual) Lymphocytes # 0.8 L Lymphocytes # (Manual) 0.85 L Monocytes # (Manual) Myelocytes # (Manual) Nucleated RBCs PT INR APTT ABG pCO2 ABG pO2 ABG HCO3 ABG Total CO2 Sodium Chloride Carbon Dioxide BUN 57 H Creatinine 4.49 H Glucose 131 H POC Glucose (mg/dL) Plasma Lactic Acid Jac Uric Acid Calcium 7.8 L Iron Iron Saturation AST ALT Alkaline Phosphatase Troponin I Total Protein Albumin Urine Protein Urine Glucose (UA) Urine Blood Ur Leukocyte Esterase Urine RBC Urine WBC Urine WBC Clumps Crossmatch 10/23/18 10/23/18 10/23/18 07:24 17:38 17:57 WBC RBC Hgb Hct MCHC RDW Plt Count Neutrophils # Neutrophils # (Manual) Lymphocytes # Lymphocytes # (Manual) Monocytes # (Manual) Myelocytes # (Manual) Nucleated RBCs PT INR APTT ABG pCO2 ABG pO2 ABG HCO3 ABG Total CO2 Sodium Chloride 109 H Carbon Dioxide BUN 41 H Creatinine 3.43 H Glucose 121 H POC Glucose (mg/dL) Plasma Lactic Acid Jac 2.5 H* Uric Acid 2.8 L Calcium 7.9 L Iron Iron Saturation AST ALT Alkaline Phosphatase Troponin I Total Protein Albumin Urine Protein Urine Glucose (UA) Urine Blood Ur Leukocyte Esterase Urine RBC Urine WBC Urine WBC Clumps Crossmatch 10/24/18 10/24/18 10/24/18 14:31 23:42 23:42 WBC RBC 2.61 L 2.47 L Hgb 7.3 L 7.0 L Hct 23.1 L 22.0 L MCHC RDW 19.9 H 19.5 H Plt Count 135 L 126 L Neutrophils # Neutrophils # (Manual) Lymphocytes # Lymphocytes # (Manual) 0.55 L Monocytes # (Manual) 1.33 H Myelocytes # (Manual) Nucleated RBCs 1 H PT INR APTT ABG pCO2 ABG pO2 ABG HCO3 ABG Total CO2 Sodium Chloride Carbon Dioxide BUN 32 H Creatinine 2.88 H Glucose 134 H POC Glucose (mg/dL) Plasma Lactic Acid Jac Uric Acid Calcium 7.4 L Iron Iron Saturation AST ALT Alkaline Phosphatase Troponin I Total Protein Albumin Urine Protein Urine Glucose (UA) Urine Blood Ur Leukocyte Esterase Urine RBC Urine WBC Urine WBC Clumps Crossmatch 10/25/18 10/25/18 10/25/18 06:51 06:51 13:37 WBC RBC 2.48 L Hgb 6.9 L* Hct 22.9 L MCHC 30.1 L RDW 19.0 H Plt Count 137 L Neutrophils # Neutrophils # (Manual) Lymphocytes # Lymphocytes # (Manual) 0.63 L Monocytes # (Manual) Myelocytes # (Manual) 0.08 H Nucleated RBCs PT INR APTT ABG pCO2 ABG pO2 ABG HCO3 ABG Total CO2 Sodium Chloride Carbon Dioxide BUN 34 H Creatinine 3.30 H Glucose 117 H POC Glucose (mg/dL) Plasma Lactic Acid Jac Uric Acid Calcium 7.8 L Iron Iron Saturation AST ALT Alkaline Phosphatase Troponin I Total Protein Albumin Urine Protein Urine Glucose (UA) Urine Blood Ur Leukocyte Esterase Urine RBC Urine WBC Urine WBC Clumps Crossmatch See Detail 10/26/18 10/26/18 10/27/18 07:00 07:00 05:36 WBC RBC 2.96 L 2.94 L Hgb 8.1 L 8.1 L Hct 26.9 L 27.1 L MCHC 30.1 L 29.9 L RDW 17.9 H 18.2 H Plt Count 141 L 128 L Neutrophils # Neutrophils # (Manual) Lymphocytes # Lymphocytes # (Manual) Monocytes # (Manual) 1.22 H Myelocytes # (Manual) Nucleated RBCs PT INR APTT ABG pCO2 ABG pO2 ABG HCO3 ABG Total CO2 Sodium Chloride Carbon Dioxide BUN 40 H Creatinine 4.25 H Glucose 116 H POC Glucose (mg/dL) Plasma Lactic Acid Jac Uric Acid Calcium 7.8 L Iron Iron Saturation AST ALT Alkaline Phosphatase Troponin I Total Protein Albumin Urine Protein Urine Glucose (UA) Urine Blood Ur Leukocyte Esterase Urine RBC Urine WBC Urine WBC Clumps Crossmatch 10/27/18 10/29/18 10/29/18 05:36 06:20 06:55 WBC 11.5 H RBC 1.92 L Hgb 5.5 L* D Hct 17.7 L* MCHC RDW 19.2 H Plt Count 138 L Neutrophils # Neutrophils # (Manual) Lymphocytes # Lymphocytes # (Manual) Monocytes # (Manual) Myelocytes # (Manual) Nucleated RBCs PT INR APTT ABG pCO2 ABG pO2 ABG HCO3 ABG Total CO2 Sodium 134 L Chloride Carbon Dioxide 21 L 17 L BUN 51 H 48 H Creatinine 4.94 H 4.05 H Glucose 111 H 119 H POC Glucose (mg/dL) Plasma Lactic Acid Jac Uric Acid Calcium 8.0 L 7.9 L Iron Iron Saturation AST ALT Alkaline Phosphatase Troponin I Total Protein Albumin Urine Protein Urine Glucose (UA) Urine Blood Ur Leukocyte Esterase Urine RBC Urine WBC Urine WBC Clumps Crossmatch 10/29/18 10/29/18 10/29/18 06:55 11:20 11:43 WBC RBC Hgb Hct MCHC RDW Plt Count Neutrophils # Neutrophils # (Manual) Lymphocytes # Lymphocytes # (Manual) Monocytes # (Manual) Myelocytes # (Manual) Nucleated RBCs PT INR APTT ABG pCO2 ABG pO2 ABG HCO3 ABG Total CO2 Sodium Chloride Carbon Dioxide BUN Creatinine Glucose POC Glucose (mg/dL) 117 H 120 H Plasma Lactic Acid Jac Uric Acid Calcium Iron Iron Saturation AST ALT Alkaline Phosphatase Troponin I Total Protein Albumin Urine Protein Urine Glucose (UA) Urine Blood Ur Leukocyte Esterase Urine RBC Urine WBC Urine WBC Clumps Crossmatch See Detail 10/29/18 10/29/18 10/29/18 11:55 12:20 12:20 WBC 12.6 H RBC 2.79 L Hgb 8.0 L D Hct 26.0 L MCHC 30.9 L RDW 17.1 H Plt Count 140 L Neutrophils # Neutrophils # (Manual) 11.40 H Lymphocytes # Lymphocytes # (Manual) 0.38 L Monocytes # (Manual) Myelocytes # (Manual) Nucleated RBCs PT INR APTT ABG pCO2 ABG pO2 ABG HCO3 ABG Total CO2 Sodium Chloride Carbon Dioxide 15 L BUN 47 H Creatinine 4.47 H Glucose 126 H POC Glucose (mg/dL) Plasma Lactic Acid Jac Uric Acid Calcium Iron Iron Saturation AST 95 H ALT 8 L Alkaline Phosphatase 174 H Troponin I Total Protein 4.8 L Albumin 2.8 L Urine Protein 2+ H Urine Glucose (UA) Trace H Urine Blood Small H Ur Leukocyte Esterase Large H Urine RBC >182 H Urine WBC >182 H Urine WBC Clumps Many H Crossmatch 10/29/18 10/29/18 12:20 14:06 WBC RBC Hgb Hct MCHC RDW Plt Count Neutrophils # Neutrophils # (Manual) Lymphocytes # Lymphocytes # (Manual) Monocytes # (Manual) Myelocytes # (Manual) Nucleated RBCs PT INR APTT ABG pCO2 23 L ABG pO2 82 L ABG HCO3 15 L ABG Total CO2 16 L Sodium Chloride Carbon Dioxide BUN Creatinine Glucose POC Glucose (mg/dL) Plasma Lactic Acid Jac 6.5 H* Uric Acid Calcium Iron Iron Saturation AST ALT Alkaline Phosphatase Troponin I Total Protein Albumin Urine Protein Urine Glucose (UA) Urine Blood Ur Leukocyte Esterase Urine RBC Urine WBC Urine WBC Clumps Crossmatch - Diagnostic Findings Chest x-ray: report reviewed, image reviewed Assessment and Plan Plan: Assessment: #1. Acute septic shock, and the source is under investigation #2. Acute hypoxemic respiratory failure related to acute septic shock requiring intubation and placement on mechanical ventilator #3. Anion gap metabolic acidosis related to lactic acidosis #4. Recent MSSA bacteremia treated with a course of IV cefazolin #5. Acute GI bleeding, patient initially presented to the hospital on 10/21/2018 with lower GI bleeding, EGD showed erosive gastritis. Patient is passing melanotic stools and required transfusion of 2 additional packed red blood cell transfusion for a total of 4 units of PRBCs this admission #6. End-stage renal failure on hemodialysis #7. Coronary artery disease status post bypass grafting #8. History of lower extremities and sacral wounds with cultures positive for methicillin-resistant staph aureus and Enterococcus faecalis #9. His history of GI bleeding with peptic ulcer disease #10. Micrococcus bacteremia likely due to contamination #11. Hypertension #12. Hyperlipidemia #13. History of myocardial infarction #14. Gout #15. History of nicotine dependence currently in remission #16. Resident of [facility] Plan: Patient has been intubated and placed on mechanical ventilator, on assist control mode of ventilation with a rate of 30, tidal volume 500, FiO2 of 100% and PEEP of 5, and postintubation blood gases reviewed, showing pO2 of 82, pCO2 of 23, and pH of 7.41, and this was done on FiO2 of 50%, the rate was decreased down to 22 breaths per minute, and FiO2 down to 40%. Patient has been fluid resuscitated with 2 L of normal saline, and maintenance IV fluids are infusing at her rate of 50 ML per hour, blood cultures, sputum and urine cultures have been sent and are pending at this time, antibiotic coverage has been started in the form of Zosyn, case discussed with ID service. There was a discussion with the family members including the and the children state that the patient would want to proceed with aggressive medical treatment, although they did acknowledge that patient's health has been deteriorating significantly in the last several months, and patient has multitude of comorbidities, and [facility] We'll continue with current medical treatment, start nebulized treatments every 4 hours and as needed, will start vasopressor support if needed to keep map of 65 mmHg. Will continue PPI therapy. Overall prognosis is guarded. We'll continue to follow I performed a history & physical examination of the patient and discussed their management with my nurse practitioner, Diane Ta. I reviewed the nurse practitioner's note and agree with the documented findings and plan of care. Lung sounds are positive for diffuse rhonchi throughout the lung cotto. The findings and the impression was discussed with the patient. I attest to the documentation by the nurse practitioner. Time with Patient: Greater than 30
[2018-10-29] MEDS: PIPERACILLIN-TAZOBACTAM 3.375 GM in SODIUM CHLORIDE 0.9% 100 ML IVPB SCH ×2 (15:04→23:59)
[2018-10-29] MEDS: SODIUM CHLORIDE 0.9% 1,000 ML IV SCH (15:06)
--- NOTE | 2018-10-29 16:37 | PN ---
PROGRESS NOTE DATE OF SERVICE: 10/29/2018. REASON FOR FOLLOWUP: Possible sepsis and bilateral gluteal wound. INTERVAL HISTORY: The patient was noted to have significant respiratory distress, for which the patient has been transferred down to the ICU. The patient did receive 2 units of blood with dialysis this morning. The patient seems to be lethargic. Some shortness of breath and hard to breathe, but no nausea, no vomiting or any choking on the food or diarrhea has been reported. Patient is unable to provide any history. Currently not requiring any pressor support. PHYSICAL EXAMINATION: Blood pressure 117/40 with a pulse of 100, temperature 97. He is 92% on 15 L non- rebreather. General description is an elderly male with mild respiratory distress. Some tachypnea with accessory muscles of respiration use. LUNGS: Unlabored breathing. Coarse breath sounds bilaterally. HEART: S1, S2. Regular rate and rhythm. ABDOMEN: Soft. No tenderness. EXTREMITIES: Some trace edema of feet. LABS: Hemoglobin 8 with white count 12.6, BUN of 47, creatinine 4.47. UA has been positive. The patient did have a chest x-ray which shows hypoventilatory lungs and trace pleural effusion. DIAGNOSTIC IMPRESSION AND PLAN: Patient with acute change in his clinical condition with acute respiratory distress with a question of possible aspiration pneumonitis or fluid overload in this patient who is not running a fever or any significant jump in the white count. Sputum culture will be requested. The patient did have significantly positive UA. However, the patient is a dialysis patient and not sure how long the urine has been sitting in the bladder. With the clinical suspicion of underlying UTI, antibiotic has been adjusted to Zosyn. To continue for now. Cefazolin will be discontinued and clinical condition will be monitored closely. Continue with supportive care. Plan of care was discussed with the nurse practitioner for the portable irrigation operator. MMODL / IJN: [id number] /
[2018-10-29 17:32] LABS: Anisocytosis Slight; Basophils % (A) 0 %; Eosinophils % (A) 0 %; HCT 20.6 % (39.0-53.0); Hypochromasia Marked; Lymphocytes # (A) 0.5 k/uL (1.0-4.8); Lymphocytes % (A) 5 %; MCH 29.7 pg (25.0-35.0); MCHC 33.3 g/dL (31.0-37.0); MCV 89.3 fL (80.0-100.0); Mean Platelet Volume 9.2; Monocytes # (A) 0.7 k/uL (0-1.0); Monocytes % (A) 7 %; Neutrophils # (A) 8.3 k/uL (1.3-7.7); Neutrophils % (A) 83 %; Platelet Count 133 k/uL (150-450); Poikilocytosis Marked; RDW 17.7 % (11.5-15.5)
[2018-10-29 17:34] LABS: HGB 6.9 gm/dL (13.0-17.5)
[2018-10-29 18:10] LABS: Glucose,Whole Blood 160 mg/dL (75-99)
[2018-10-29] MEDS: CHLORHEXIDINE GLUCONATE 15 ML CUP MUCOUS MEM SCH (21:38)
[2018-10-29] MEDS: PANTOPRAZOLE 40 MG/10 ML VIAL IVP SCH (21:38)
[2018-10-29] MEDS: SODIUM CHLORIDE 0.9% 150 ML with VASOPRESSIN 60 UNIT IV SCH ×2 (23:51)
[2018-10-29 23:57] LABS: Glucose,Whole Blood 147 mg/dL (75-99)
[2018-10-29] MEDS: INSULIN ASPART (NovoLOG) 100 UNIT/ML VIAL SQ SCH (23:59)
[2018-10-30] MEDS: PROPOFOL 1,000 MG in EMPTY BAG 1 BAG IV SCH ×6 (02:00→23:17)
[2018-10-30 05:02] LABS: Anisocytosis Slight; HCT 22.6 % (39.0-53.0); HGB 7.4 gm/dL (13.0-17.5); Hypochromasia Moderate; MCHC 32.8 g/dL (31.0-37.0); MCV 88.3 fL (80.0-100.0); Mean Platelet Volume 8.6; Platelet Count 149 k/uL (150-450); Poikilocytosis Marked; RBC 2.56 m/uL (4.30-5.90); RDW 17.8 % (11.5-15.5)
[2018-10-30 05:19] LABS: INR 2.4 (<1.2); Prothrombin Time 22.9 sec (9.0-12.0)
[2018-10-30 05:20] LABS: Calcium 7.7 mg/dL (8.4-10.2); Potassium 4.4 mmol/L (3.5-5.1)
[2018-10-30] MEDS: NOREPINEPHRINE 32 MG in SODIUM CHLORIDE 0.9% 218 ML IV SCH ×2 (05:21→15:22)
[2018-10-30 05:56] LABS: Glucose,Whole Blood 149 mg/dL (75-99)
[2018-10-30] MEDS: INSULIN ASPART (NovoLOG) 100 UNIT/ML VIAL SQ SCH ×3 (05:59→17:59)
[2018-10-30 06:46] LABS: Nucleated Red Blood Cells 5 /100 WBC (0-0); Total Cells Counted 200
[2018-10-30 06:47] LABS: Eosinophils # (M) 0.21 k/uL (0-0.7); Monocytes # (M) 0.53 k/uL (0-1.0); WBC 10.6 k/uL (3.8-10.6)
[2018-10-30 06:48] LABS: Polychromasia Present
[2018-10-30 06:49] LABS: Large Platelets Present
--- NOTE | 2018-10-30 07:38 | PN ---
PROGRESS NOTE Patient was seen this morning. His is present at bedside. He is seen on hemodialysis. Blood pressure has been running low. Patient has just received midodrine. His hemoglobin this morning was down to 5.5 g/dL. He is being transfused 2 units packed RBCs. The patient is awake. He is not in any acute distress at this time. He has been short of breath. We are planning for about 2 L of ultrafiltration today. PHYSICAL EXAMINATION: On examination this morning, blood pressure was 124/49. Patient is comfortable. He is mildly short of breath. He is in pain, not in any acute distress. He is awake. EXAMINATION OF THE HEART: S1, S2. EXAMINATION OF THE LUNGS: Decreased breath sounds at the bases. Basal crackles are heard. Abdomen is soft, nontender. Examination of lower extremities shows edema 2+ bilaterally, upper and lower extremities. LABS: Labs show this morning hemoglobin was 5.5 g/dL, sodium 134, potassium 4.5, BUN 48, serum creatinine 4.05. ASSESSMENT: 1. End-stage renal disease, on hemodialysis. The patient is being dialyzed mainly for volume overload today. 2. Anemia with recent gastrointestinal bleed. Hemoglobin has dropped again. Patient will be transfused packed RBCs. We did have a dark bowel movement. 3. Generalized debility. 4. Recent MSSA bacteremia from right foot cellulitis. 5. History of rheumatoid arthritis. 6. Atrial fibrillation with controlled ventricular response. PLAN: Hemodialysis today as well as in a.m. We will only do ultrafiltration today to help get more fluid off. Transfuse 2 units packed RBCs. Repeat hemoglobin later on today. The patient's condition is discussed with his . I have discussed with them regarding the code status. She has talked to the rest of the family which is her children and some of the family members will be flying from out of town. However, at this time, she would like to proceed with FULL CODE. MMODL / IJN: [id number] /
[2018-10-30 07:40] LABS: Allen Test Performed? Yes
[2018-10-30 07:41] LABS: ABG Base Excess -9.4 mmol/L; ABG HCO3 15 mmol/L (21-25); ABG PCO2 24 mmHg (35-45); ABG PH 7.41 (7.35-7.45); ABG PO2 73 mmHg (83-108); ABG TCO2 16 mmol/L (19-24)
[2018-10-30] MEDS: IPRATROPIUM-ALBUTEROL 3 ML NEB INHALATION SCH ×5 (07:46→19:24)
--- NOTE | 2018-10-30 07:49 | XR ---
EXAMINATION TYPE: XR chest 1V portable DATE OF EXAM: 10/30/2018 COMPARISON: 10/29/2018 HISTORY: Postintubation TECHNIQUE: Single frontal view of the chest is obtained. FINDINGS: Bilateral consolidation and pleural effusion stable. Postoperative change with ET and NG t ube noted. Right-sided central line noted. No sizable pneumothorax. Interstitial pattern noted. Arthr opathy of the shoulders. IMPRESSION: 1. Bilateral infiltrate and pleural effusion stable correlate for CHF.
[2018-10-30 07:51] LABS: Band Neutrophils % 10 %
[2018-10-30 07:53] LABS: Lymphocytes # (M) 1.38 k/uL (1.0-4.8); Neutrophils % (M) 70 %
[2018-10-30] MEDS ORDERED: DESMOPRESSIN ACETATE 28 MCG in SODIUM CHLORIDE 0.9% 50 ML IVPB ONE (07:54)
[2018-10-30] MEDS ORDERED: SODIUM BICARB 8.4% 50 ML SYR (1 MEQ/ML) IV STA ×2 (07:55→08:12)
--- NOTE | 2018-10-30 08:14 | PCN ---
PROCEDURE NOTE OPERATIVE REPORT: Placement of a right femoral arterial line. PREOPERATIVE DIAGNOSIS OR INDICATION FOR THE PROCEDURE: Acute respiratory failure and hypotension. POSTOPERATIVE DIAGNOSIS: Acute respiratory failure and hypotension. ANESTHESIA USED: None deployed. PROCEDURE: The patient was placed in a supine position, the right groin was prepared in a sterile fashion and drapes were applied. The right femoral artery was palpated, cannulated, and a guidewire was placed. The area around the guidewire was dilated with a dilator, and then a standard femoral Cook catheter was inserted over the guidewire and the guidewire was removed. Good blood flow and good waveform were noted. Line was secured using 3.0 silk sutures. Good waveform was noted. No evidence of any complications. MMODL / IJN: [id number] /
[2018-10-30] MEDS: PANTOPRAZOLE 40 MG/10 ML VIAL IVP SCH ×2 (08:18→21:22)
[2018-10-30] MEDS: CHLORHEXIDINE GLUCONATE 15 ML CUP MUCOUS MEM SCH ×2 (08:18→21:22)
[2018-10-30] MEDS: MIDODRINE 5 MG TAB PO SCH ×3 (11:17→16:20)
[2018-10-30] MEDS: ALLOPURINOL 100 MG TAB PO SCH (11:17)
[2018-10-30] MEDS: METOPROLOL TARTRATE 12.5 MG TAB PO SCH ×2 (11:17→16:20)
[2018-10-30] MEDS: SUCRALFATE 1 GM TAB PO SCH ×4 (11:17→21:19)
[2018-10-30] MEDS: AMIODARONE 100 MG TAB PO SCH (11:17)
[2018-10-30] MEDS: ATORVASTATIN 40 MG TAB PO SCH (11:18)
[2018-10-30] MEDS: HYDROCORTISONE SUPPOSITORY 25 MG SUPP RECTAL SCH (11:18)
[2018-10-30 11:33] VITALS: BMI 33.0
--- NOTE | 2018-10-30 12:10 | P.PN ---
Subjective Progress Note Date: 10/30/18 Principal diagnosis: Acute septic shock This 83-year-old white male patient that was admitted to the hospital on 10/21/2018 from the local extended care facility for lower GI bleeding, patient presented with maroon-colored stools, and anemia. Patient was recently hospitalized at the [facility] for episode of GI bleeding for which he required blood transfusions. Patient had previously been on Eliquis, had been discontinued since April. 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 Patient was also found to be bacteremic with methicillin susceptible Staphylococcus aeruginosa, and was treated with the IV course of cefazolin which was completed yesterday on 10/28/2018. This admission blood culture was positive with micrococcus which was thought to be a contaminant. Patient was receiving hemodialysis treatments, he did receive a unit of blood on 10/21/2018 on admission for hemoglobin of 7.0, 1 unit on 10/25/2018 for hemoglobin of 6.9, and on this morning's labs his hemo globin was down to 5.5 from previous 8.1. Patient was started to pass melanotic stools, he did undergo EGD, which showed erosive gastritis with treatment of 2 focal areas of oozing with Gold probe cauterization. This morning rapid response team was called with concerns about increased difficulty in breathing, tachypnea, lethargy. Patient was quite congested, lethargic, he did have his hemodialysis treatment today, and receive 2 units of blood with hemodialysis, 2 L of fluid was removed. Stat chest x-ray was obtained showing hypoventilatory lungs and small trace pleural effusions with bibasilar atelectasis that appeared similar to previous chest x-rays. Patient was placed on BiPAP support with pressures of 12/6 and FiO2 of 100%, and transferred to the intensive care unit for further management. In the unit patient was evaluated, was quite tachypneic, with a rate of 30-34, tidal volumes of greater than 1 L, and minute ventilation of 30-35 L/min. Were unable to obtain a blood gas related to poor access, extensive swelling, presence of a AV fistula in the left arm, and right PICC line, general swelling, and extremely fragile skin with multiple skin tears on bilateral upper extremities. Lactic acid was elevated at 6.5, patient is hypotensive with systolic in the 80s and diastolic in the 40s, 2 L of IV fluids is being infused, patient was pancultured, Sparks catheter was inserted, with evidence of gross pyuria. White blood cell count of 12.6, hemoglobin of 8.0, serum sodium is 138, potassium is 4.5, chloride is 104, CO2 was 15, anion gap is 19, B1 is 47, creatinine is 4.47, AST is 95, ALT is 8, alkaline phosphatase is 174. Zosyn was started for antibiotic coverage. Patient's family is at the bedside, updated on patient's condition, and they wish to proceed with full measures including CPR, resuscitation, and placement on mechanical ventilatory support, as they state the patient was not ready to go to [facility]. Patient was then intubated and placed on mechanical ventilator, femoral arterial line was placed, gases pending. Patient was examined today on 10/30/2018, remains in the intensive care unit, on mechanical ventilation, on high dose of pressors including norepinephrine and vasopressin. Blood pressure is marginal. His cultures of the blood came back positive for gram-negative rods. Patient is on Zosyn. Being followed by infectious disease on the case. His ventilator settings are assist control rate of 24, tidal volume is 500, FiO2 is 40%, and PEEP is at 5. ABG showed a pO2 of 73 pCO2 of 24 pH of 7.41, patient is also on bicarb drip. WBC count is 10.6 hemoglobin is 7.4, INR is 2.4, continues to have bloody secretions from nasogastric tube, hence we'll try to give the patient fresh frozen plasma to reverse his elevated INR. Patient received a total of 5 units of packed RBCs since admission, and his hemoglobin remains low at 7.4. His son is at bedside, and he was updated on his condition today, made aware of his poor prognosis, in the meantime the patient remains full code, however if his condition gets any worse, we will approach the family again regarding CODE STATUS. Chest x-ray is showing by basilar infiltrates, and possibly some component of interstitial edema. Objective - Vital Signs Vital signs: Vital Signs Temp 98.1 F 10/30/18 08:00 Pulse 104 H 10/30/18 11:41 Resp 31 H 10/30/18 11:00 BP 106/23 10/30/18 06:00 Pulse Ox 94 L 10/30/18 11:00 Intake & Output 10/29/18 10/30/18 10/30/18 18:59 06:59 18:59 Intake Total 4885.696 1257.259 365 Output Total 3020 488 5 Balance 1865.696 769.259 360 Weight 92.8 kg 92.8 kg Intake: IV 583 265 Sodium Chloride 0.9% 1, 550 250 000 ml @ 50 mls/hr IV . Q20H RINA Rx#:[id number] pressure bag 33 15 Intake, IV Titration 2400.696 364.259 100 Amount Norepinephrine 32 mg In 21.200 141.777 Sodium Chloride 0.9% 218 ml @ 0.05 MCG/KG/MIN 1.57 mls/hr IV .Q24H RINA Rx#: [id number] Piperacillin-Tazobactam 3 100 .375 gm In Sodium Chloride 0.9% 100 ml @ 25 mls/hr IVPB Q12HR@0000, 1200 RINA Rx#:[id number] Propofol 1,000 mg In 79.496 Empty Bag 1 bag @ Titrate IV .Q0M RINA Rx#: [id number] Propofol 1,000 mg In 172.482 100 Empty Bag 1 bag @ Titrate IV .Q0M RINA Rx#: [id number] Sodium Chloride 0.9% 1, 200 50 000 ml @ 50 mls/hr IV . Q20H RINA Rx#:[id number] Sodium Chloride 0.9% 1, 1000 000 ml @ 999 mls/hr IV . Q1H1M ONE Rx#:[id number] Sodium Chloride 0.9% 1, 1000 000 ml @ 999 mls/hr IV . Q1H1M ONE Rx#:[id number] Blood Product 1565 310 Rc As-1 Unit 310 [id number] Rc As-1 Unit 0 310 [id number] Rc As-1 Unit 310 [id number] Hemodialysis 920 Output: Gastric Drainage 480 Urine 20 8 5 Hemodialysis 3000 Other: Voiding Method Indwelling Catheter Indwelling Catheter Indwelling Catheter # Bowel Movements 1 ABP, PAP, CO, CI - Last Documented Arterial Blood Pressure 114/31 - Exam GENERAL EXAM: 83-year-old white male, on mechanical ventilation. Sedated, on propofol. Head: Atraumatic, normocephalic. NECK: No masses, no JVD, no thyroid enlargement, no adenopathy. Endotracheal tube and orogastric tube were noted. CHEST: No chest wall deformity. Symmetrical expansion. LUNGS: Crackles and rhonchi noted bilaterally. CVS: Regular rate and rhythm, normal S1 and S2, no gallops, no murmurs, no rubs ABDOMEN: Soft, nontender. No hepatosplenomegaly, normal bowel sounds, no guarding or rigidity. EXTREMITIES: No clubbing, edema in the bilateral upper extremities, with multiple skin tears, bruising, no cyanosis, 2+ pulses and upper and lower extremities. Left arm AV shunt, right arm PICC line. Right femoral arterial line is noted. MUSCULOSKELETAL: Muscle strength and tone normal. SPINE: No scoliosis or deformity SKIN: No rashes CENTRAL NERVOUS SYSTEM: Cannot be assessed, patient is sedated, on propofol. - Labs CBC & Chem 7: 10/30/18 04:30 10/30/18 04:30 Labs: Abnormal Lab Results - Last 24 Hours (Table) 10/29/18 10/29/18 10/29/18 Range/Units 06:55 11:55 12:20 WBC 12.6 H (3.8-10.6) k/uL RBC 2.79 L (4.30-5.90) m/uL Hgb 8.0 L D (13.0-17.5) gm/dL Hct 26.0 L (39.0-53.0) % MCHC 30.9 L (31.0-37.0) g/dL RDW 17.1 H (11.5-15.5) % Plt Count 140 L (150-450) k/uL Neutrophils # (1.3-7.7) k/uL Neutrophils # (Manual) 11.40 H (1.3-7.7) k/uL Lymphocytes # (1.0-4.8) k/uL Lymphocytes # (Manual) 0.38 L (1.0-4.8) k/uL Nucleated RBCs (0-0) /100 WBC PT (9.0-12.0) sec INR (<1.2) ABG pCO2 (35-45) mmHg ABG pO2 (83-108) mmHg ABG HCO3 (21-25) mmol/L ABG Total CO2 (19-24) mmol/L Sodium (137-145) mmol/L Chloride (98-107) mmol/L Carbon Dioxide (22-30) mmol/L BUN (9-20) mg/dL Creatinine (0.66-1.25) mg/dL Glucose (74-99) mg/dL POC Glucose (mg/dL) (75-99) mg/dL Plasma Lactic Acid Jac (0.7-2.0) mmol/L Calcium (8.4-10.2) mg/dL AST (17-59) U/L ALT (21-72) U/L Alkaline Phosphatase (38-126) U/L Total Protein (6.3-8.2) g/dL Albumin (3.5-5.0) g/dL Urine Protein 2+ H (Negative) Urine Glucose (UA) Trace H (Negative) Urine Blood Small H (Negative) Ur Leukocyte Esterase Large H (Negative) Urine RBC >182 H (0-5) /hpf Urine WBC >182 H (0-5) /hpf Urine WBC Clumps Many H (None) /hpf Crossmatch See Detail 10/29/18 10/29/18 10/29/18 Range/Units 12:20 12:20 14:06 WBC (3.8-10.6) k/uL RBC (4.30-5.90) m/uL Hgb (13.0-17.5) gm/dL Hct (39.0-53.0) % MCHC (31.0-37.0) g/dL RDW (11.5-15.5) % Plt Count (150-450) k/uL Neutrophils # (1.3-7.7) k/uL Neutrophils # (Manual) (1.3-7.7) k/uL Lymphocytes # (1.0-4.8) k/uL Lymphocytes # (Manual) (1.0-4.8) k/uL Nucleated RBCs (0-0) /100 WBC PT (9.0-12.0) sec INR (<1.2) ABG pCO2 23 L (35-45) mmHg ABG pO2 82 L (83-108) mmHg ABG HCO3 15 L (21-25) mmol/L ABG Total CO2 16 L (19-24) mmol/L Sodium (137-145) mmol/L Chloride (98-107) mmol/L Carbon Dioxide 15 L (22-30) mmol/L BUN 47 H (9-20) mg/dL Creatinine 4.47 H (0.66-1.25) mg/dL Glucose 126 H (74-99) mg/dL POC Glucose (mg/dL) (75-99) mg/dL Plasma Lactic Acid Jac 6.5 H* (0.7-2.0) mmol/L Calcium (8.4-10.2) mg/dL AST 95 H (17-59) U/L ALT 8 L (21-72) U/L Alkaline Phosphatase 174 H (38-126) U/L Total Protein 4.8 L (6.3-8.2) g/dL Albumin 2.8 L (3.5-5.0) g/dL Urine Protein (Negative) Urine Glucose (UA) (Negative) Urine Blood (Negative) Ur Leukocyte Esterase (Negative) Urine RBC (0-5) /hpf Urine WBC (0-5) /hpf Urine WBC Clumps (None) /hpf Crossmatch 10/29/18 10/29/18 10/29/18 Range/Units 17:08 17:08 17:59 WBC (3.8-10.6) k/uL RBC 2.30 L (4.30-5.90) m/uL Hgb 6.9 L* (13.0-17.5) gm/dL Hct 20.6 L (39.0-53.0) % MCHC (31.0-37.0) g/dL RDW 17.7 H (11.5-15.5) % Plt Count 133 L (150-450) k/uL Neutrophils # 8.3 H (1.3-7.7) k/uL Neutrophils # (Manual) (1.3-7.7) k/uL Lymphocytes # 0.5 L (1.0-4.8) k/uL Lymphocytes # (Manual) (1.0-4.8) k/uL Nucleated RBCs (0-0) /100 WBC PT (9.0-12.0) sec INR (<1.2) ABG pCO2 (35-45) mmHg ABG pO2 (83-108) mmHg ABG HCO3 (21-25) mmol/L ABG Total CO2 (19-24) mmol/L Sodium (137-145) mmol/L Chloride (98-107) mmol/L Carbon Dioxide (22-30) mmol/L BUN (9-20) mg/dL Creatinine (0.66-1.25) mg/dL Glucose (74-99) mg/dL POC Glucose (mg/dL) 160 H (75-99) mg/dL Plasma Lactic Acid Jac 2.8 H* (0.7-2.0) mmol/L Calcium (8.4-10.2) mg/dL AST (17-59) U/L ALT (21-72) U/L Alkaline Phosphatase (38-126) U/L Total Protein (6.3-8.2) g/dL Albumin (3.5-5.0) g/dL Urine Protein (Negative) Urine Glucose (UA) (Negative) Urine Blood (Negative) Ur Leukocyte Esterase (Negative) Urine RBC (0-5) /hpf Urine WBC (0-5) /hpf Urine WBC Clumps (None) /hpf Crossmatch 10/29/18 10/30/18 10/30/18 Range/Units 23:46 04:30 04:30 WBC (3.8-10.6) k/uL RBC 2.56 L (4.30-5.90) m/uL Hgb 7.4 L (13.0-17.5) gm/dL Hct 22.6 L (39.0-53.0) % MCHC (31.0-37.0) g/dL RDW 17.8 H (11.5-15.5) % Plt Count 149 L (150-450) k/uL Neutrophils # (1.3-7.7) k/uL Neutrophils # (Manual) 8.40 H (1.3-7.7) k/uL Lymphocytes # (1.0-4.8) k/uL Lymphocytes # (Manual) (1.0-4.8) k/uL Nucleated RBCs 5 H (0-0) /100 WBC PT 22.9 H (9.0-12.0) sec INR 2.4 H (<1.2) ABG pCO2 (35-45) mmHg ABG pO2 (83-108) mmHg ABG HCO3 (21-25) mmol/L ABG Total CO2 (19-24) mmol/L Sodium (137-145) mmol/L Chloride (98-107) mmol/L Carbon Dioxide (22-30) mmol/L BUN (9-20) mg/dL Creatinine (0.66-1.25) mg/dL Glucose (74-99) mg/dL POC Glucose (mg/dL) 147 H (75-99) mg/dL Plasma Lactic Acid Jac (0.7-2.0) mmol/L Calcium (8.4-10.2) mg/dL AST (17-59) U/L ALT (21-72) U/L Alkaline Phosphatase (38-126) U/L Total Protein (6.3-8.2) g/dL Albumin (3.5-5.0) g/dL Urine Protein (Negative) Urine Glucose (UA) (Negative) Urine Blood (Negative) Ur Leukocyte Esterase (Negative) Urine RBC (0-5) /hpf Urine WBC (0-5) /hpf Urine WBC Clumps (None) /hpf Crossmatch 10/30/18 10/30/18 10/30/18 Range/Units 04:30 05:53 07:30 WBC (3.8-10.6) k/uL RBC (4.30-5.90) m/uL Hgb (13.0-17.5) gm/dL Hct (39.0-53.0) % MCHC (31.0-37.0) g/dL RDW (11.5-15.5) % Plt Count (150-450) k/uL Neutrophils # (1.3-7.7) k/uL Neutrophils # (Manual) (1.3-7.7) k/uL Lymphocytes # (1.0-4.8) k/uL Lymphocytes # (Manual) (1.0-4.8) k/uL Nucleated RBCs (0-0) /100 WBC PT (9.0-12.0) sec INR (<1.2) ABG pCO2 24 L (35-45) mmHg ABG pO2 73 L (83-108) mmHg ABG HCO3 15 L (21-25) mmol/L ABG Total CO2 16 L (19-24) mmol/L Sodium 136 L (137-145) mmol/L Chloride 109 H (98-107) mmol/L Carbon Dioxide 14 L (22-30) mmol/L BUN 50 H (9-20) mg/dL Creatinine 4.47 H (0.66-1.25) mg/dL Glucose 132 H (74-99) mg/dL POC Glucose (mg/dL) 149 H (75-99) mg/dL Plasma Lactic Acid Jac (0.7-2.0) mmol/L Calcium 7.7 L (8.4-10.2) mg/dL AST (17-59) U/L ALT (21-72) U/L Alkaline Phosphatase (38-126) U/L Total Protein (6.3-8.2) g/dL Albumin (3.5-5.0) g/dL Urine Protein (Negative) Urine Glucose (UA) (Negative) Urine Blood (Negative) Ur Leukocyte Esterase (Negative) Urine RBC (0-5) /hpf Urine WBC (0-5) /hpf Urine WBC Clumps (None) /hpf Crossmatch Microbiology - Last 24 Hours (Table) 10/29/18 12:39 Blood Culture Gram Stain - Preliminary Blood Blood Culture - Preliminary Gram Neg Bacilli 10/25/18 06:51 Blood Culture - Preliminary Blood No Growth after 120 hours 10/29/18 12:39 Blood Culture - Final Blood 10/29/18 13:50 Gram Stain - Preliminary Sputum Sputum Culture - Preliminary 10/29/18 11:55 Urine Culture - Preliminary Urine,Catheterized Assessment and Plan Assessment: #1. Acute septic shock, secondary to gram-negative bacteremia, likely source is skin or urine. Most likely urine related. #2. Acute hypoxemic respiratory failure related to acute septic shock requiring intubation and placement on mechanical ventilator #3. Anion gap metabolic acidosis related to lactic acidosis #4. Recent MSSA bacteremia treated with a course of IV cefazolin, patient presently has gram-negative rods in the blood. #5. Acute GI bleeding, patient initially presented to the hospital on 10/21/2018 with lower GI bleeding, EGD showed erosive gastritis. Received a total of 5 units of packed RBCs, I plan to give the patient 2 units of fresh was a plasma for his ongoing GI bleeding, and elevated INR today. #6. End-stage renal failure on hemodialysis #7. Coronary artery disease status post bypass grafting #8. History of lower extremities and sacral wounds with cultures positive for methicillin-resistant staph aureus and Enterococcus faecalis #9. His history of GI bleeding with peptic ulcer disease #10. Micrococcus bacteremia on admission. #11. Hypertension #12. Hyperlipidemia #13. History of myocardial infarction #14. Gout #15. History of nicotine dependence currently in remission #16. [facility]ident [facility] Plan: Continue present supportive care measures including ventilatory support, hemodynamic support, nutritional support, hemodialysis, blood products and fresh frozen plasma for ongoing upper GI bleeding, continue Protonix, continue DVT prophylaxis, antibiotics, his overall condition and prognosis been discussed with the family/son, patient remains full code presently, however will keep the family updated on his condition on a daily basis. Patient again is extremely ill, and clearly in septic shock. His chest x-ray is showing interstitial edema, doubt pneumonia. However pneumonia is not entirely ruled out, and the patient is a great set up for ARDS. Which is not present at this point in time. Critical care time is 45 minutes. Time with Patient: Greater than 30
[2018-10-30] MEDS: PIPERACILLIN-TAZOBACTAM 3.375 GM in SODIUM CHLORIDE 0.9% 100 ML IVPB SCH (12:15)
[2018-10-30 12:28] LABS: Glucose,Whole Blood 144 mg/dL (75-99)
--- NOTE | 2018-10-30 12:56 | PN ---
PROGRESS NOTE Patient is seen for followup for end-stage renal disease. He was transferred to the ICU yesterday secondary to worsening of the respiratory distress after 2 units packed RBC transfusion. Patient did have dialysis yesterday and had 2 L of ultrafiltration. However, his condition deteriorated and he was eventually intubated. At this time, family is awaiting final decision making regarding code status. I have talked to them. I have talked to Mrs. Xie regarding the overall decline in the patient's condition over the past few months and she wanted to continue with full code status yesterday with plans for possible change in the code status once the rest of the family arrives. Overnight, patient was hypotensive and his Levophed is up to 40 mcg. He has had ongoing GI bleed with a dark red blood noted in the NG tube as well. PHYSICAL EXAMINATION: On examination today, blood pressure was 114/35, heart rate of 105 per minute. He is afebrile. Examination of the heart, S1 and S2. Examination of the lungs, decreased breath sounds bases. Abdomen is soft, distended, nontender. Examination of the lower extremities shows edema 2+ bilaterally, upper and lower extremities. Edema is decreased in the lower extremities, but patient has significant sacral edema. VETERINARY TECHNICIAN exam cannot be performed. LABS: Show hemoglobin 7.4 this morning. Sodium 136, potassium 4.4, BUN 50, serum creatinine 4.47. ASSESSMENT: 1. End-stage renal disease, on hemodialysis, usually on a Friday, , Friday schedule. Patient has been dialyzed daily over the last 3 days for volume overload. 2. In GI bleed with recurring bleeding which started yesterday. The patient had an EGD on this admission by Dr. Zaina TURNER on 10/22/2018, which showed large duodenal ulcer with 2 areas of oozing. This was cauterized. The patient is maintained on proton pump inhibitors. 3. Generalized debility. 4. Volume overload and third spacing. Maintained on daily dialysis for the last 3 treatments a mainly for ultrafiltration. 5. History of rheumatoid arthritis. 6. Recent methicillin-susceptible Staphylococcus aureus bacteremia and source was the right foot. 7. Recurrent sepsis. Blood cultures from yesterday are now growing gram-negative bacilli sources, possibly the sacral wound versus UTI. 8. Acute hypoxic respiratory failure, currently on the vent, maintained on FiO2 of about 40%. 9. Metabolic acidosis secondary to ongoing hypotension and most likely lactic acidosis. PLAN: Hemodialysis today, if the patient is able to tolerate the treatment, he is on high doses of pressors. Further discussion regarding patient's code status will be made today. I will give 2 amps of sodium bicarb, his IV push x1 now. I will also give a dose of DDAVP to help with the bleeding. Overall prognosis is guarded. Continue with antibiotics. MMODL / IJN: [id number] /
[2018-10-30 13:32] LABS: Anisocytosis Slight; HGB 7.1 gm/dL (13.0-17.5); Hypochromasia Moderate; MCHC 33.7 g/dL (31.0-37.0); Mean Platelet Volume 8.7; Platelet Count 141 k/uL (150-450); Poikilocytosis Marked; RBC 2.36 m/uL (4.30-5.90); RDW 18.1 % (11.5-15.5)
[2018-10-30 14:02] LABS: Band Neutrophils % 11 %; Basophils # (M) 0.08 k/uL (0-0.2); Eosinophils # (M) 0.08 k/uL (0-0.7); Metamyelocytes % 2 %; Neutrophils % (M) 78 %; Nucleated Red Blood Cells 4 /100 WBC (0-0); Total Cells Counted 200
[2018-10-30 14:03] LABS: Lymphocytes # (M) 0.46 k/uL (1.0-4.8); Metamyelocytes # (M) 0.15 k/uL (0); Monocytes # (M) 0.23 k/uL (0-1.0); WBC 7.7 k/uL (3.8-10.6)
[2018-10-30 14:05] LABS: Large Platelets Present; Polychromasia Present
[2018-10-30] MEDS ORDERED: DEXTROSE 5% IN WATER 100 ML with AMIODARONE 150 MG IV ONE (14:18)
[2018-10-30] MEDS ORDERED: AMIODARONE 360 MG in DEXTROSE 5% IN WATER 200 ML IV ONE ×2 (14:19)
--- NOTE | 2018-10-30 14:57 | PN ---
PROGRESS NOTE DATE OF SERVICE: 10/30/2018 REASON FOR FOLLOWUP: Gram-negative bacteremia, source possible pneumonia, less likely UTI. INTERVAL HISTORY: The patient is currently afebrile. The patient ended up getting intubated because of worsening respiratory distress. He is currently intubated on the vent, hemodynamically stable, not on any pressor support. FiO2 is currently stable. He is in the process of getting dialysis. PHYSICAL EXAMINATION: Blood pressure is 129/40 with a pulse of 116, temperature 98.1. He is 93% on 40% FiO2. General description is an elderly male lying in bed in no distress. RESPIRATORY SYSTEM: Unlabored breathing. Some coarse breath sounds at the bases bilaterally. HEART: S1, S2. Regular rate and rhythm. ABDOMEN: Soft. No tenderness. EXTREMITIES: Trace edema of feet. SKIN EXAMINATION: Multiple bruises. LABS: Hemoglobin 7.4, white count 10.6, BUN of 50, creatinine 4.47. Blood culture now showing Gram-negative bacilli. Sputum culture currently pending. Urine is pending. DIAGNOSTIC IMPRESSION AND PLAN: Patient with sepsis with Gram-negative bacteremia; source possible pneumonia versus, less likely, urinary tract infection. This patient is a dialysis patient, hardly makes any urine. The patient is currently covered with Zosyn; to continue for now while waiting for the cultures to finalize. Blood culture will be repeated to document clearance of his bacteremia. Family at the bedside. Their questions were answered. MMODL / IJN: [id number] /
[2018-10-30] MEDS: NYSTATIN 100,000 UNIT/GM POWD 15 GM TOPICAL SCH ×2 (16:17→21:23)
--- NOTE | 2018-10-30 17:43 | P.PN ---
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 Currently hemoglobin is stable. Patient did have a history of multiple EGDs in the past. Patient was started on hemodialysis as per nephrology. Patient did have MSSA bacteremia at [facility]. Repeat blood cultures show Micrococcus. Likely contaminant. 10/27/2018 Patient denied any complains of worsening shortness of breath or chest pain. Patient is hypotensive and was given Midrin before hemodialysis. 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 Nephrology is following. Patient denied any complaints of nausea. No headache or dizziness or lightheadedness.. No fever no chills. Otherwise patient does have generalized weakness. No hematemesis or melena. Creatinine 4.94 today. 10/28/2018 Patient is currently awake alert and able to communicate. Still having generalized pain and shortness of breath. Nephrology is planning for hemodialysis again today. Otherwise patient is being continued on antibiotics in the form of cefazolin due to recent MSSA bacteremia and patient is also having stage II decub ulcers. Continued on wound care. No fever no chills. Hemoglobin is stable at 8.1 Nephrology and ID is following. 10/29/2018 Patient is more lethargic and disoriented today. Hemoglobin dropped to 5.5. Patient underwent hemodialysis. Patient became more short of breath and lethargic. Patient was hypotensive and is breathing shallow. MICU was consulted and patient is being transferred to intensive care unit. No fever no chills. No evidence of dark-colored stools. No abdominal tenderness noted. Discussed with his regarding CODE STATUS and further care. Family wishes to proceed with full measures. Sputum and repeat Blood cultures and repeat urine culture was ordered. Antibiotics changed to Zosyn at this time. Complete review of systems could not be obtained from the patient. Current medications reviewed. Objective - Vital Signs Vital signs: Vital Signs Temp 96.5 F L 10/29/18 11:03 Pulse 104 H 10/29/18 11:34 Resp 24 10/29/18 11:03 BP 124/49 10/29/18 11:03 Pulse Ox 79 L 10/29/18 11:03 Intake & Output 10/28/18 10/29/18 10/29/18 18:59 06:59 18:59 Intake Total 825 773 7881 Output Total 2200 Balance -2029 100 1240 Weight 67 kg Intake: Intake, IV Titration 50 100 0 Amount Sodium Chloride 0.9% 1, 0 000 ml @ 50 mls/hr IV . Q20H RINA Rx#:[id number] ceFAZolin 1,000 mg In 50 100 Sodium Chloride 0.9% 50 ml @ 100 mls/hr IVPB Q12HR RINA Rx#:[id number] Oral 120 Blood Product 1240 Rc As-1 Unit 310 [id number] Rc As-1 Unit 310 [id number] Output: Hemodialysis 2200 Other: Voiding Method Urinal Urinal Urinal # Voids 1 - Exam PHYSICAL EXAMINATION: Patient is lying in the bed. Lethargic and disoriented... HEENT: Normocephalic. Neck is supple. Pupils reactive. Nostrils clear. Oral cavity is moist. Ears reveal no drainage. Neck reveals no JVD, carotid bruits, or thyromegaly. CHEST EXAMINATION: Trachea is central. Symmetrical expansion. Bibasilar diminished air entry. Lung cotto clear to auscultation and percussion. CARDIAC: Normal S1, S2 with no gallops. No murmurs ABDOMEN: Soft. Bowel sounds normal. No organomegaly. No abdominal bruits. Extremities: reveal no edema. No clubbing or cyanosis Neurologically patient is awake alert but lethargic.. No cross focal deficits noted Skin: Stage II bilateral gluteal ulcers. No signs of infection.. Psychiatric: Could not be assessed. Musculoskeletal: No joint swelling or deformity. - Labs CBC & Chem 7: 10/30/18 13:00 10/30/18 04:30 Labs: Abnormal Lab Results - Last 24 Hours (Table) 10/29/18 10/29/18 10/29/18 Range/Units 06:20 06:55 06:55 WBC 11.5 H (3.8-10.6) k/uL RBC 1.92 L (4.30-5.90) m/uL Hgb 5.5 L* D (13.0-17.5) gm/dL Hct 17.7 L* (39.0-53.0) % MCHC (31.0-37.0) g/dL RDW 19.2 H (11.5-15.5) % Plt Count 138 L (150-450) k/uL Neutrophils # (Manual) (1.3-7.7) k/uL Lymphocytes # (Manual) (1.0-4.8) k/uL Sodium 134 L (137-145) mmol/L Carbon Dioxide 17 L (22-30) mmol/L BUN 48 H (9-20) mg/dL Creatinine 4.05 H (0.66-1.25) mg/dL Glucose 119 H (74-99) mg/dL POC Glucose (mg/dL) (75-99) mg/dL Plasma Lactic Acid Jac (0.7-2.0) mmol/L Calcium 7.9 L (8.4-10.2) mg/dL AST (17-59) U/L ALT (21-72) U/L Alkaline Phosphatase (38-126) U/L Total Protein (6.3-8.2) g/dL Albumin (3.5-5.0) g/dL Urine Protein (Negative) Urine Glucose (UA) (Negative) Urine Blood (Negative) Ur Leukocyte Esterase (Negative) Urine RBC (0-5) /hpf Urine WBC (0-5) /hpf Urine WBC Clumps (None) /hpf Crossmatch See Detail 10/29/18 10/29/18 10/29/18 Range/Units 11:20 11:43 11:55 WBC (3.8-10.6) k/uL RBC (4.30-5.90) m/uL Hgb (13.0-17.5) gm/dL Hct (39.0-53.0) % MCHC (31.0-37.0) g/dL RDW (11.5-15.5) % Plt Count (150-450) k/uL Neutrophils # (Manual) (1.3-7.7) k/uL Lymphocytes # (Manual) (1.0-4.8) k/uL Sodium (137-145) mmol/L Carbon Dioxide (22-30) mmol/L BUN (9-20) mg/dL Creatinine (0.66-1.25) mg/dL Glucose (74-99) mg/dL POC Glucose (mg/dL) 117 H 120 H (75-99) mg/dL Plasma Lactic Acid Jac (0.7-2.0) mmol/L Calcium (8.4-10.2) mg/dL AST (17-59) U/L ALT (21-72) U/L Alkaline Phosphatase (38-126) U/L Total Protein (6.3-8.2) g/dL Albumin (3.5-5.0) g/dL Urine Protein 2+ H (Negative) Urine Glucose (UA) Trace H (Negative) Urine Blood Small H (Negative) Ur Leukocyte Esterase Large H (Negative) Urine RBC >182 H (0-5) /hpf Urine WBC >182 H (0-5) /hpf Urine WBC Clumps Many H (None) /hpf Crossmatch 10/29/18 10/29/18 10/29/18 Range/Units 12:20 12:20 12:20 WBC 12.6 H (3.8-10.6) k/uL RBC 2.79 L (4.30-5.90) m/uL Hgb 8.0 L D (13.0-17.5) gm/dL Hct 26.0 L (39.0-53.0) % MCHC 30.9 L (31.0-37.0) g/dL RDW 17.1 H (11.5-15.5) % Plt Count 140 L (150-450) k/uL Neutrophils # (Manual) 11.40 H (1.3-7.7) k/uL Lymphocytes # (Manual) 0.38 L (1.0-4.8) k/uL Sodium (137-145) mmol/L Carbon Dioxide 15 L (22-30) mmol/L BUN 47 H (9-20) mg/dL Creatinine 4.47 H (0.66-1.25) mg/dL Glucose 126 H (74-99) mg/dL POC Glucose (mg/dL) (75-99) mg/dL Plasma Lactic Acid Jac 6.5 H* (0.7-2.0) mmol/L Calcium (8.4-10.2) mg/dL AST 95 H (17-59) U/L ALT 8 L (21-72) U/L Alkaline Phosphatase 174 H (38-126) U/L Total Protein 4.8 L (6.3-8.2) g/dL Albumin 2.8 L (3.5-5.0) g/dL Urine Protein (Negative) Urine Glucose (UA) (Negative) Urine Blood (Negative) Ur Leukocyte Esterase (Negative) Urine RBC (0-5) /hpf Urine WBC (0-5) /hpf Urine WBC Clumps (None) /hpf Crossmatch Microbiology - Last 24 Hours (Table) 10/25/18 06:51 Blood Culture - Preliminary Blood No Growth after 96 hours Assessment and Plan Assessment: Acute hypoxemic respiratory failure secondary to hypovolemic shock with possible sepsis/shock. Acute GI bleed was likely upper due to erosive gastritis as well as moderate duodenitis. Status post EGD. Acute blood loss anemia status post transfusions. Hemoglobin 5.5 today. History of previous recurrent GI bleed with peptic ulcer disease. ESRD on hemodialysis TTS.. Hyponatremia improving Lactic acidosis 3.1 second to renal failure improved now Troponin level 0.027 intermediate. 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 History of recent MSSA bacteremia Nicotine dependence History of lithotripsy Plan: Patient is being transferred to MICU. Repeat blood cultures and urine cultures ordered. Antibiotics were changed to Zosyn for broad-spectrum coverage. Cefazolin has been discontinued. Patient underwent hemodialysis today. Continue to monitor H&H and transfuse as needed. Family wishes to proceed with full code. Prognosis poor with multiple medical problems and comorbid conditions and co mpress issues. Time with Patient: Greater than 30
[2018-10-30] MEDS: SODIUM CHLORIDE 0.9% 1,000 ML IV SCH (17:48)
[2018-10-30] MEDS: SODIUM CHLORIDE 0.9% 150 ML with VASOPRESSIN 60 UNIT IV SCH ×2 (18:00)
[2018-10-30 18:10] LABS: Glucose,Whole Blood 160 mg/dL (75-99)
--- NOTE | 2018-10-30 18:40 | P.PN ---
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 Currently hemoglobin is stable. Patient did have a history of multiple EGDs in the past. Patient was started on hemodialysis as per nephrology. Patient did have MSSA bacteremia at [facility]. Repeat blood cultures show Micrococcus. Likely contaminant. 10/27/2018 Patient denied any complains of worsening shortness of breath or chest pain. Patient is hypotensive and was given Midrin before hemodialysis. 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 Nephrology is following. Patient denied any complaints of nausea. No headache or dizziness or lightheadedness.. No fever no chills. Otherwise patient does have generalized weakness. No hematemesis or melena. Creatinine 4.94 today. 10/28/2018 Patient is currently awake alert and able to communicate. Still having generalized pain and shortness of breath. Nephrology is planning for hemodialysis again today. Otherwise patient is being continued on antibiotics in the form of cefazolin due to recent MSSA bacteremia and patient is also having stage II decub ulcers. Continued on wound care. No fever no chills. Hemoglobin is stable at 8.1 Nephrology and ID is following. 10/29/2018 Patient is more lethargic and disoriented today. Hemoglobin dropped to 5.5. Patient underwent hemodialysis. Patient became more short of breath and lethargic. Patient was hypotensive and is breathing shallow. MICU was consulted and patient is being transferred to intensive care unit. No fever no chills. No evidence of dark-colored stools. No abdominal tenderness noted. Discussed with his regarding CODE STATUS and further care. Family wishes to proceed with full measures. Sputum and repeat Blood cultures and repeat urine culture was ordered. Antibiotics changed to Zosyn at this time. Complete review of systems could not be obtained from the patient. 10/30/2018 Patient is currently in the MICU. Intubated and sedated and on mechanical ventilator. Requiring pressor support. Blood cultures grew gram-negative bacilli. Currently patient antibodies the form of Zosyn. Hemoglobin is 7.4 this morning. INR is 2.4 today. Patient was started on hemodialysis but after about 15 minutes patient went into A. fib with RVR and hemoglobin and since was suspected at the time. Patient was started on amiodarone drip. Due to poor prognosis family is agreeable to changing the CODE STATUS to DO NOT RESUSCITATE. Complete review of systems could not be obtained from the patient. Current medications reviewed. Objective - Vital Signs Vital signs: Vital Signs Temp 98.7 F 10/30/18 16:00 Pulse 133 H 10/30/18 17:00 Resp 27 H 10/30/18 17:00 BP 105/37 10/30/18 14:51 Pulse Ox 96 10/30/18 17:00 Intake & Output 10/29/18 10/30/18 10/30/18 18:59 06:59 18:59 Intake Total 4885.696 0720.757 1895.933 Output Total 3020 488 146 Balance 1865.696 178.673 6474.933 Weight 92.8 kg 92.8 kg Intake: IV 583 583 Sodium Chloride 0.9% 1, 550 550 000 ml @ 50 mls/hr IV . Q20H [facility] Rx#:[id number] pressure bag 33 33 Intake, IV Titration 2400.696 364.259 327.933 Amount Norepinephrine 32 mg In 21.200 141.777 127.933 Sodium Chloride 0.9% 218 ml @ 0.05 MCG/KG/MIN 1.57 mls/hr IV .Q24H RINA Rx#: [id number] Piperacillin-Tazobactam 3 100 .375 gm In Sodium Chloride 0.9% 100 ml @ 25 mls/hr IVPB Q12HR@0000, 1200 RINA Rx#:[id number] Propofol 1,000 mg In 79.496 Empty Bag 1 bag @ Titrate IV .Q0M RINA Rx#: [id number] Propofol 1,000 mg In 172.482 200 Empty Bag 1 bag @ Titrate IV .Q0M RINA Rx#: [id number] Sodium Chloride 0.9% 1, 200 50 000 ml @ 50 mls/hr IV . Q20H RINA Rx#:[id number] Sodium Chloride 0.9% 1, 1000 000 ml @ 999 mls/hr IV . Q1H1M ONE Rx#:[id number] Sodium Chloride 0.9% 1, 1000 000 ml @ 999 mls/hr IV . Q1H1M ONE Rx#:[id number] Blood Product 1565 310 475 Ffp 24 Cp2d Unit 232 [id number] Ffp 24 Pher Acda Unit 243 [id number] Rc As-1 Unit 310 [id number] Rc As-1 Unit 0 310 [id number] Rc As-1 Unit 310 [id number] Hemodialysis 920 300 Output: Gastric Drainage 480 Urine 20 8 5 Hemodialysis 3000 141 Other: Voiding Method Indwelling Catheter Indwelling Catheter Indwelling Catheter # Bowel Movements 1 ABP, PAP, CO, CI - Last Documented Arterial Blood Pressure 107/35 - Exam PHYSICAL EXAMINATION: Patient is lying in the bed. Sedated and intubated... HEENT: Normocephalic. Neck is supple. Pupils reactive. Nostrils clear. Oral cavity is moist. Ears reveal no drainage. Neck reveals no JVD, carotid bruits, or thyromegaly. CHEST EXAMINATION: Trachea is central. Symmetrical expansion. Bibasilar dimi nished air entry. Lung cotto clear to auscultation and percussion. CARDIAC: Normal S1, S2 with no gallops. No murmurs ABDOMEN: Soft. Bowel sounds present. No organomegaly. No abdominal bruits. Extremities: reveal no edema. No clubbing or cyanosis Neurologically patient is currently sedated No cross focal deficits noted Skin: Stage II bilateral gluteal ulcers. No signs of infection.. Psychiatric: Could not be assessed. Musculoskeletal: No joint swelling or deformity. - Labs CBC & Chem 7: 10/30/18 13:00 10/30/18 04:30 Labs: Abnormal Lab Results - Last 24 Hours (Table) 10/29/18 10/29/18 10/29/18 Range/Units 06:55 17:59 23:46 RBC (4.30-5.90) m/uL Hgb (13.0-17.5) gm/dL Hct (39.0-53.0) % RDW (11.5-15.5) % Plt Count (150-450) k/uL Neutrophils # (Manual) (1.3-7.7) k/uL Lymphocytes # (Manual) (1.0-4.8) k/uL Metamyelocytes # (Man) (0) k/uL Nucleated RBCs (0-0) /100 WBC Pathologist Review PT (9.0-12.0) sec INR (<1.2) ABG pCO2 (35-45) mmHg ABG pO2 (83-108) mmHg ABG HCO3 (21-25) mmol/L ABG Total CO2 (19-24) mmol/L Sodium (137-145) mmol/L Chloride (98-107) mmol/L Carbon Dioxide (22-30) mmol/L BUN (9-20) mg/dL Creatinine (0.66-1.25) mg/dL Glucose (74-99) mg/dL POC Glucose (mg/dL) 160 H 147 H (75-99) mg/dL Calcium (8.4-10.2) mg/dL Crossmatch See Detail 10/30/18 10/30/18 10/30/18 Range/Units 04:30 04:30 04:30 RBC 2.56 L (4.30-5.90) m/uL Hgb 7.4 L (13.0-17.5) gm/dL Hct 22.6 L (39.0-53.0) % RDW 17.8 H (11.5-15.5) % Plt Count 149 L (150-450) k/uL Neutrophils # (Manual) 8.40 H (1.3-7.7) k/uL Lymphocytes # (Manual) (1.0-4.8) k/uL Metamyelocytes # (Man) (0) k/uL Nucleated RBCs 5 H (0-0) /100 WBC Pathologist Review See comment A PT 22.9 H (9.0-12.0) sec INR 2.4 H (<1.2) ABG pCO2 (35-45) mmHg ABG pO2 (83-108) mmHg ABG HCO3 (21-25) mmol/L ABG Total CO2 (19-24) mmol/L Sodium 136 L (137-145) mmol/L Chloride 109 H (98-107) mmol/L Carbon Dioxide 14 L (22-30) mmol/L BUN 50 H (9-20) mg/dL Creatinine 4.47 H (0.66-1.25) mg/dL Glucose 132 H (74-99) mg/dL POC Glucose (mg/dL) (75-99) mg/dL Calcium 7.7 L (8.4-10.2) mg/dL Crossmatch 10/30/18 10/30/18 10/30/18 Range/Units 05:53 07:30 12:25 RBC (4.30-5.90) m/uL Hgb (13.0-17.5) gm/dL Hct (39.0-53.0) % RDW (11.5-15.5) % Plt Count (150-450) k/uL Neutrophils # (Manual) (1.3-7.7) k/uL Lymphocytes # (Manual) (1.0-4.8) k/uL Metamyelocytes # (Man) (0) k/uL Nucleated RBCs (0-0) /100 WBC Pathologist Review PT (9.0-12.0) sec INR (<1.2) ABG pCO2 24 L (35-45) mmHg ABG pO2 73 L (83-108) mmHg ABG HCO3 15 L (21-25) mmol/L ABG Total CO2 16 L (19-24) mmol/L Sodium (137-145) mmol/L Chloride (98-107) mmol/L Carbon Dioxide (22-30) mmol/L BUN (9-20) mg/dL Creatinine (0.66-1.25) mg/dL Glucose (74-99) mg/dL POC Glucose (mg/dL) 149 H 144 H (75-99) mg/dL Calcium (8.4-10.2) mg/dL Crossmatch 10/30/18 Range/Units 13:00 RBC 2.36 L (4.30-5.90) m/uL Hgb 7.1 L (13.0-17.5) gm/dL Hct 21.0 L (39.0-53.0) % RDW 18.1 H (11.5-15.5) % Plt Count 141 L (150-450) k/uL Neutrophils # (Manual) (1.3-7.7) k/uL Lymphocytes # (Manual) 0.46 L (1.0-4.8) k/uL Metamyelocytes # (Man) 0.15 H (0) k/uL Nucleated RBCs 4 H (0-0) /100 WBC Pathologist Review PT (9.0-12.0) sec INR (<1.2) ABG pCO2 (35-45) mmHg ABG pO2 (83-108) mmHg ABG HCO3 (21-25) mmol/L ABG Total CO2 (19-24) mmol/L Sodium (137-145) mmol/L Chloride (98-107) mmol/L Carbon Dioxide (22-30) mmol/L BUN (9-20) mg/dL Creatinine (0.66-1.25) mg/dL Glucose (74-99) mg/dL POC Glucose (mg/dL) (75-99) mg/dL Calcium (8.4-10.2) mg/dL Crossmatch Microbiology - Last 24 Hours (Table) 10/29/18 12:20 Blood Culture - Preliminary Blood No Growth after 24 hours 10/29/18 13:50 Gram Stain - Preliminary Sputum Sputum Culture - Preliminary Gram Neg Bacilli Gram Neg Bacilli#2 10/29/18 12:39 Blood Culture Gram Stain - Preliminary Blood Blood Culture - Preliminary Gram Neg Bacilli 10/25/18 06:51 Blood Culture - Preliminary Blood No Growth after 120 hours 10/29/18 12:39 Blood Culture - Final Blood 10/29/18 11:55 Urine Culture - Preliminary Urine,Catheterized Assessment and Plan Assessment: Acute hypoxemic respiratory failure secondary to septic shock. Gram-negative bacilli bacteremia Acute GI bleed was likely upper due to erosive gastritis as well as moderate duodenitis. Status post EGD. Acute blood loss anemia status post transfusions. Status post multiple transfusions.. History of previous recurrent GI bleed with peptic ulcer disease. ESRD on hemodialysis TTS.. Hyponatremia improving Lactic acidosis 3.1 second to renal failure improved now Troponin level 0.027 intermediate. likely due to CK D Micrococcus bacteremia due to likely contamination History of coronary artery disease status post coronary artery bypass graft Hypertension Hyperlipidemia History of [place] Resented to joint disease Gout Stage II's bilateral gluteal ulcers. History of recent MSSA bacteremia Nicotine dependence History of lithotripsy Plan: Patient is currently in the MICU. Repeat blood cultures ordered. Antibiotics were changed to Zosyn for broad-spectrum coverage. Cefazolin has been discontinued. Continue to monitor H&H and transfuse as needed. Family wishes to proceed with DO NOT RESUSCITATE. Prognosis poor with multiple medical problems and comorbid conditions and complex issues. Time with Patient: Greater than 30
[2018-10-30] MEDS: AMIODARONE 300 MG in DEXTROSE 5% IN WATER 250 ML IV SCH ×2 (21:18)
[2018-10-30 22:00] LABS: Anisocytosis Slight; Hypochromasia Moderate; MCH 33.2 pg (25.0-35.0); MCHC 36.8 g/dL (31.0-37.0); MCV 90.2 fL (80.0-100.0); Mean Platelet Volume 9.2; Platelet Count 140 k/uL (150-450); Poikilocytosis Marked; RBC 2.06 m/uL (4.30-5.90); RDW 18.4 % (11.5-15.5); WBC 14.7 k/uL (3.8-10.6)
[2018-10-30 22:09] LABS: HCT 18.6 % (39.0-53.0); HGB 6.8 gm/dL (13.0-17.5)
[2018-10-31 00:34] LABS: Glucose,Whole Blood 153 mg/dL (75-99)
[2018-10-31] MEDS: PIPERACILLIN-TAZOBACTAM 3.375 GM in SODIUM CHLORIDE 0.9% 100 ML IVPB SCH ×3 (00:34→23:49)
[2018-10-31] MEDS: INSULIN ASPART (NovoLOG) 100 UNIT/ML VIAL SQ SCH ×5 (00:34→23:49)
[2018-10-31] MEDS: NOREPINEPHRINE 32 MG in SODIUM CHLORIDE 0.9% 218 ML IV SCH ×2 (01:00→18:48)
[2018-10-31] MEDS: SODIUM CHLORIDE 0.9% 150 ML with VASOPRESSIN 60 UNIT IV SCH ×2 (01:01)
[2018-10-31] MEDS: PROPOFOL 1,000 MG in EMPTY BAG 1 BAG IV SCH ×7 (03:09→23:49)
[2018-10-31] MEDS: SODIUM CHLORIDE 0.9% 1,000 ML IV SCH (04:11)
[2018-10-31 06:29] LABS: Glucose,Whole Blood 158 mg/dL (75-99)
[2018-10-31] MEDS: SUCRALFATE 1 GM TAB PO SCH ×4 (06:30→21:09)
--- NOTE | 2018-10-31 07:12 | XR ---
EXAMINATION TYPE: XR chest 1V portable DATE OF EXAM: 10/31/2018 CLINICAL HISTORY: Difficulty breathing progress study. TECHNIQUE: Single AP portable semiupright view of the chest is obtained. COMPARISON: Chest x-ray from one day earlier and older studies. FINDINGS: An endotracheal tube, orogastric tube, and right-sided PICC line are all stable in appeara nce. Overlying sternal wires and mediastinal clips are redemonstrated. Persistent bibasilar opacities . Cardiac silhouette size stable and mildly enlarged. Upper lungs are clear without pneumothorax. Oss eous structures are intact. IMPRESSION: Overall stable findings, chronic parenchymal changes and mild cardiomegaly with persist ent bibasilar acute infiltrate and/or atelectasis and likely small bilateral pleural effusions.
[2018-10-31 07:16] LABS: ABG Base Excess -11.1 mmol/L; ABG HCO3 15 mmol/L (21-25); ABG Oxygen Saturation 96.8 % (94-97); ABG PCO2 27 mmHg (35-45); ABG PH 7.35 (7.35-7.45); ABG PO2 83 mmHg (83-108); ABG TCO2 15 mmol/L (19-24); Allen Test Performed? Yes
[2018-10-31] MEDS: IPRATROPIUM-ALBUTEROL 3 ML NEB INHALATION SCH ×4 (07:24→19:06)
[2018-10-31 07:41] LABS: Potassium 4.7 mmol/L (3.5-5.1)
[2018-10-31 07:57] LABS: Anisocytosis Slight; HCT 24.7 % (39.0-53.0); Hypochromasia Slight; MCV 87.8 fL (80.0-100.0); Mean Platelet Volume 9.8; Platelet Count 125 k/uL (150-450); Poikilocytosis Moderate; RBC 2.82 m/uL (4.30-5.90); RDW 17.8 % (11.5-15.5); WBC 16.6 k/uL (3.8-10.6)
[2018-10-31 08:25] LABS: MCH 28.6 pg (25.0-35.0); MCHC 32.9 g/dL (31.0-37.0)
[2018-10-31] MEDS: METOPROLOL TARTRATE 12.5 MG TAB PO SCH ×2 (08:25→16:29)
[2018-10-31 08:26] LABS: HGB 8.1 gm/dL (13.0-17.5)
[2018-10-31] MEDS: MIDODRINE 5 MG TAB PO SCH ×3 (08:26→16:29)
[2018-10-31] MEDS: ATORVASTATIN 40 MG TAB PO SCH (08:26)
[2018-10-31] MEDS: ALLOPURINOL 100 MG TAB PO SCH (08:26)
[2018-10-31 08:52] LABS: Calcium 7.7 mg/dL (8.4-10.2)
[2018-10-31] MEDS: HYDROCORTISONE SUPPOSITORY 25 MG SUPP RECTAL SCH (09:03)
[2018-10-31] MEDS: PANTOPRAZOLE 40 MG/10 ML VIAL IVP SCH ×2 (09:08→21:08)
[2018-10-31] MEDS: NYSTATIN 100,000 UNIT/GM POWD 15 GM TOPICAL SCH ×2 (09:08→21:09)
[2018-10-31] MEDS: CHLORHEXIDINE GLUCONATE 15 ML CUP MUCOUS MEM SCH ×2 (09:08→21:08)
--- NOTE | 2018-10-31 11:01 | P.PN ---
Subjective Progress Note Date: 10/31/18 Principal diagnosis: Acute septic shock This 83-year-old white male patient that was admitted to the hospital on 10/21/2018 from the local extended care facility for lower GI bleeding, patient presented with maroon-colored stools, and anemia. Patient was recently hospitalized at the [facility] for episode of GI bleeding for which he required blood transfusions. Patient had previously been on Eliquis, had been discontinued since April. 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 Patient was also found to be bacteremic with methicillin susceptible Staphylococcus aeruginosa, and was treated with the IV course of cefazolin which was completed yesterday on 10/28/2018. This admission blood culture was positive with micrococcus which was thought to be a contaminant. Patient was receiving hemodialysis treatments, he did receive a unit of blood on 10/21/2018 on admission for hemoglobin of 7.0, 1 unit on 10/25/2018 for hemoglobin of 6.9, and on this morning's labs his hemo globin was down to 5.5 from previous 8.1. Patient was started to pass melanotic stools, he did undergo EGD, which showed erosive gastritis with treatment of 2 focal areas of oozing with Gold probe cauterization. This morning rapid response team was called with concerns about increased difficulty in breathing, tachypnea, lethargy. Patient was quite congested, lethargic, he did have his hemodialysis treatment today, and receive 2 units of blood with hemodialysis, 2 L of fluid was removed. Stat chest x-ray was obtained showing hypoventilatory lungs and small trace pleural effusions with bibasilar atelectasis that appeared similar to previous chest x-rays. Patient was placed on BiPAP support with pressures of 12/6 and FiO2 of 100%, and transferred to the intensive care unit for further management. In the unit patient was evaluated, was quite tachypneic, with a rate of 30-34, tidal volumes of greater than 1 L, and minute ventilation of 30-35 L/min. Were unable to obtain a blood gas related to poor access, extensive swelling, presence of a AV fistula in the left arm, and right PICC line, general swelling, and extremely fragile skin with multiple skin tears on bilateral upper extremities. Lactic acid was elevated at 6.5, patient is hypotensive with systolic in the 80s and diastolic in the 40s, 2 L of IV fluids is being infused, patient was pancultured, Sparks catheter was inserted, with evidence of gross pyuria. White blood cell count of 12.6, hemoglobin of 8.0, serum sodium is 138, potassium is 4.5, chloride is 104, CO2 was 15, anion gap is 19, B1 is 47, creatinine is 4.47, AST is 95, ALT is 8, alkaline phosphatase is 174. Zosyn was started for antibiotic coverage. Patient's family is at the bedside, updated on patient's condition, and they wish to proceed with full measures including CPR, resuscitation, and placement on mechanical ventilatory support, as they state the patient was not ready to go to [facility]. Patient was then intubated and placed on mechanical ventilator, femoral arterial line was placed, gases pending. Patient was examined today on 10/30/2018, remains in the intensive care unit, on mechanical ventilation, on high dose of pressors including norepinephrine and vasopressin. Blood pressure is marginal. His cultures of the blood came back positive for gram-negative rods. Patient is on Zosyn. Being followed by infectious disease on the case. His ventilator settings are assist control rate of 24, tidal volume is 500, FiO2 is 40%, and PEEP is at 5. ABG showed a pO2 of 73 pCO2 of 24 pH of 7.41, patient is also on bicarb drip. WBC count is 10.6 hemoglobin is 7.4, INR is 2.4, continues to have bloody secretions from nasogastric tube, hence we'll try to give the patient fresh frozen plasma to reverse his elevated INR. Patient received a total of 5 units of packed RBCs since admission, and his hemoglobin remains low at 7.4. His son is at bedside, and he was updated on his condition today, made aware of his poor prognosis, in the meantime the patient remains full code, however if his condition gets any worse, we will approach the family again regarding CODE STATUS. Chest x-ray is showing by basilar infiltrates, and possibly some component of interstitial edema. Reevaluated today on 10/31/2018, patient remains in the ICU, on mechanical ventilation, requiring pressors in the form of vasopressin and norepinephrine. His ventilator settings are assist control rate of 26, tidal volume of 500, FiO2 of 40%, PEEP of 5. His drips include propofol at 70 mcg/kg/m, amiodarone, norepinephrine at 0.6 mcg/kg/m, vasopressin at 0.04 units per kilo per hour. Patient is fully sedated, fully ventilated, and today I added sodium bicarb drip because of his ongoing metabolic acidosis, no plans to be dialyzed today because of his hemodynamic instability. Chest x-ray was reviewed, continues to show chronic parenchymal changes, cardiomegaly, and bibasilar atelectasis with small pleural effusions, suspect some component of interstitial edema. This could be cardiogenic or noncardiogenic. Possibility of pneumonia is not entirely ruled out but felt to be less likely. Labs showed leukocytosis with WBC count of 16.6 hemoglobin is 8.1, patient continues to have ongoing GI bleeding with blood noted in the nasogastric tube, hence I gave him 2 more units of fresh frozen plasma today, and he received a total of 7 units of packed RBCs and 4 units of fresh frozen plasma so far. Recommended reevaluation by gastroenterology. ABG showed a pO2 of 83 pCO2 of 27 pH of 7.35, bicarb is 12. Renal functioning showed BUN of 53 creatinine 4.52. Patient is fully sedated, and mechanically ventilated. No family members at bedside today. Objective - Vital Signs Vital signs: Vital Signs Temp 98.2 F 10/31/18 10:45 Pulse 86 10/31/18 10:45 Resp 26 H 10/31/18 10:45 BP 117/27 10/31/18 10:45 Pulse Ox 95 10/31/18 10:00 Intake & Output 10/30/18 10/31/18 10/31/18 18:59 06:59 18:59 Intake Total 1718.695 6659.375 390.437 Output Total 146 220 5 Balance 6734.117 6454.375 385.437 Weight 92.8 kg 92.9 kg Intake: IV 636 736 212 Piperacillin-Tazobactam 3 100 .375 gm In Sodium Chloride 0.9% 100 ml @ 25 mls/hr IVPB Q12HR@0000, 1200 [facility] Rx#:[id number] Sodium Chloride 0.9% 1, 600 600 200 000 ml @ 50 mls/hr IV . Q20H [facility] Rx#:[id number] pressure bag 36 36 12 Intake, IV Titration 427.933 603.375 178.437 Amount Norepinephrine 32 mg In 127.933 309.191 78.437 Sodium Chloride 0.9% 218 ml @ 0.05 MCG/KG/MIN 1.57 mls/hr IV .Q24H [facility] Rx#: [id number] Propofol 1,000 mg In 300 294.184 100 Empty Bag 1 bag @ Titrate IV .Q0M [facility] Rx#: [id number] Oral 0 Blood Product 475 1240 0 Ffp 24 Cp2d Unit 232 [id number] Ffp 24 Cpd Unit 0 [id number] Ffp 24 Pher Acda Unit 243 [id number] Rc As-1 Unit 310 [id number] Rc As-1 Unit 310 [id number] Hemodialysis 300 Output: Gastric Drainage 200 Urine 5 20 5 Hemodialysis 141 Other: Voiding Method Indwelling Catheter Indwelling Catheter Indwelling Catheter ABP, PAP, CO, CI - Last Documented Arterial Blood Pressure 127/29 - Exam GENERAL EXAM: 83-year-old white male, on mechanical ventilation. Sedated, on propofol. Head: Atraumatic, normocephalic. NECK: No masses, no JVD, no thyroid enlargement, no adenopathy. Endotracheal tube and nasogastric tube, bloody drainage noted in the nasogastric tube. CHEST: No chest wall deformity. Symmetrical expansion. LUNGS: Crackles and rhonchi noted bilaterally. CVS: Regular rate and rhythm, normal S1 and S2, no gallops, no murmurs, no rubs ABDOMEN: Soft, nontender. No hepatosplenomegaly, normal bowel sounds, no guarding or rigidity. EXTREMITIES: No clubbing, edema in the bilateral upper extremities, with multiple skin tears, bruising, no cyanosis, 2+ pulses and upper and lower extremities. Left arm AV shunt, right arm PICC line. Right femoral arterial line is noted. MUSCULOSKELETAL: Muscle strength and tone normal. SPINE: No scoliosis or deformity SKIN: No rashes CENTRAL NERVOUS SYSTEM: Cannot be assessed, patient is sedated, on propofol. - Labs CBC & Chem 7: 10/31/18 07:02 10/31/18 07:02 Labs: Abnormal Lab Results - Last 24 Hours (Table) 10/29/18 10/30/1810/30/19 Range/Units 06:55 04:30 12:25 WBC (3.8-10.6) k/uL RBC (4.30-5.90) m/uL Hgb (13.0-17.5) gm/dL Hct (39.0-53.0) % RDW (11.5-15.5) % Plt Count (150-450) k/uL Lymphocytes # (Manual) (1.0-4.8) k/uL Metamyelocytes # (Man) (0) k/uL Nucleated RBCs (0-0) /100 WBC Pathologist Review See comment A ABG pCO2 (35-45) mmHg ABG HCO3 (21-25) mmol/L ABG Total CO2 (19-24) mmol/L Sodium (137-145) mmol/L Chloride (98-107) mmol/L Carbon Dioxide (22-30) mmol/L BUN (9-20) mg/dL Creatinine (0.66-1.25) mg/dL Glucose (74-99) mg/dL POC Glucose (mg/dL) 144 H (75-99) mg/dL Calcium (8.4-10.2) mg/dL Crossmatch See Detail 10/30/18 10/30/18 10/30/18 Range/Units 13:00 17:52 21:32 WBC 14.7 H (3.8-10.6) k/uL RBC 2.36 L 2.06 L (4.30-5.90) m/uL Hgb 7.1 L 6.8 L* (13.0-17.5) gm/dL Hct 21.0 L 18.6 L* (39.0-53.0) % RDW 18.1 H 18.4 H (11.5-15.5) % Plt Count 141 L 140 L (150-450) k/uL Lymphocytes # (Manual) 0.46 L (1.0-4.8) k/uL Metamyelocytes # (Man) 0.15 H (0) k/uL Nucleated RBCs 4 H (0-0) /100 WBC Pathologist Review ABG pCO2 (35-45) mmHg ABG HCO3 (21-25) mmol/L ABG Total CO2 (19-24) mmol/L Sodium (137-145) mmol/L Chloride (98-107) mmol/L Carbon Dioxide (22-30) mmol/L BUN (9-20) mg/dL Creatinine (0.66-1.25) mg/dL Glucose (74-99) mg/dL POC Glucose (mg/dL) 160 H (75-99) mg/dL Calcium (8.4-10.2) mg/dL Crossmatch 10/31/18 10/31/18 10/31/18 Range/Units 00:29 06:25 07:02 WBC (3.8-10.6) k/uL RBC (4.30-5.90) m/uL Hgb (13.0-17.5) gm/dL Hct (39.0-53.0) % RDW (11.5-15.5) % Plt Count (150-450) k/uL Lymphocytes # (Manual) (1.0-4.8) k/uL Metamyelocytes # (Man) (0) k/uL Nucleated RBCs (0-0) /100 WBC Pathologist Review ABG pCO2 (35-45) mmHg ABG HCO3 (21-25) mmol/L ABG Total CO2 (19-24) mmol/L Sodium 135 L (137-145) mmol/L Chloride 108 H (98-107) mmol/L Carbon Dioxide 12 L (22-30) mmol/L BUN 53 H (9-20) mg/dL Creatinine 4.52 H (0.66-1.25) mg/dL Glucose 140 H (74-99) mg/dL POC Glucose (mg/dL) 153 H 158 H (75-99) mg/dL Calcium 7.7 L (8.4-10.2) mg/dL Crossmatch 10/31/18 10/31/18 Range/Units 07:02 07:10 WBC 16.6 H (3.8-10.6) k/uL RBC 2.82 L (4.30-5.90) m/uL Hgb 8.1 L (13.0-17.5) gm/dL Hct 24.7 L (39.0-53.0) % RDW 17.8 H (11.5-15.5) % Plt Count 125 L (150-450) k/uL Lymphocytes # (Manual) (1.0-4.8) k/uL Metamyelocytes # (Man) (0) k/uL Nucleated RBCs (0-0) /100 WBC Pathologist Review ABG pCO2 27 L (35-45) mmHg ABG HCO3 15 L (21-25) mmol/L ABG Total CO2 15 L (19-24) mmol/L Sodium (137-145) mmol/L Chloride (98-107) mmol/L Carbon Dioxide (22-30) mmol/L BUN (9-20) mg/dL Creatinine (0.66-1.25) mg/dL Glucose (74-99) mg/dL POC Glucose (mg/dL) (75-99) mg/dL Calcium (8.4-10.2) mg/dL Crossmatch Microbiology - Last 24 Hours (Table) 10/29/18 12:39 Blood Culture Gram Stain - Final Blood Blood Culture - Final Klebsiella pneumoniae 10/29/18 13:50 Gram Stain - Preliminary Sputum Sputum Culture - Preliminary Pseudomonas aeruginosa Gram Neg Bacilli Julia albicans 10/25/18 06:51 Blood Culture - Final Blood No Growth after 144 hours 10/29/18 12:20 Blood Culture - Final Blood 10/29/18 11:55 Urine Culture - Preliminary Urine,Catheterized Gram Neg Bacilli Assessment and Plan Assessment: #1. Acute septic shock, secondary to gram-negative bacteremia, likely source is skin or urine. Most likely urine related. #2. Acute hypoxemic respiratory failure related to acute septic shock requiring intubation and placement on mechanical ventilator #3. Anion gap metabolic acidosis related to lactic acidosis, patient remains on sodium bicarb drip, his renal failure is another contributing factor to his metabolic acidosis. #4. Recent MSSA bacteremia treated with a course of IV cefazolin, patient presently has gram-negative rods in the blood. #5. Acute GI bleeding, patient initially presented to the hospital on 10/21/2018 with lower GI bleeding, EGD showed erosive gastritis. Received a total of 7 units of packed RBCs and 4 units of fresh was a plasma so far. Gastroenterology will be consulted and notified about the patient. #6. End-stage renal failure on hemodialysis #7. Coronary artery disease status post bypass grafting #8. History of lower extremities and sacral wounds with cultures positive for methicillin-resistant staph aureus and Enterococcus faecalis #9. His history of GI bleeding with peptic ulcer disease #10. Micrococcus bacteremia on admission. #11. Hypertension #12. Hyperlipidemia #13. History of myocardial infarction #14. Gout #15. History of nicotine dependence currently in remission #16. Resident of long-term care facility Plan: Continue present supportive care measures including ventilatory support, hemodynamic support, nutritional support, hemodialysis, blood products and fresh frozen plasma for ongoing upper GI bleeding, continue Protonix, continue DVT prophylaxis, antibiotics, his overall condition and prognosis been discussed with the family/son, CODE STATUS was changed to DO NOT RESUSCITATE yesterday, h owever considering the patient's condition is getting worse, may have to approach the family about possibly comfort care measures. Critical care time is 40 minutes. Time with Patient: Greater than 30
[2018-10-31] MEDS: DEXTROSE 5% IN WATER 1,000 ML with SODIUM BICARB (1 MEQ/ML) 150 ML IV SCH (11:14)
[2018-10-31] MEDS: AMIODARONE 300 MG in DEXTROSE 5% IN WATER 250 ML IV SCH ×4 (11:15→15:45)
--- NOTE | 2018-10-31 11:19 | PN ---
PROGRESS NOTE DATE OF SERVICE: 10/31/2018 Patient is an 83-year-old pleasant white male admitted to hospital with acute GI bleed. He received total of 7 units of blood transfusion since hospitalization. He dropped his hemoglobin to 6.8 g/dL last night and currently receiving 2 more units. He is presently intubated, sedated, has an NG tube in place that has been draining almost maroon- colored liquid and he also had a couple of maroon-colored bowel movements. Presently, he is hypertensive and on multiple pressors. He did have an EGD by Dr. Cuello 6 days ago that showed severe erosive gastritis and duodenitis with some which had active oozing for which he underwent cautery performed. PHYSICAL EXAMINATION: On physical examination, he is intubated, sedated, multiple pressors. Blood pressure 98/60, pulse rate 120 per minute. On physical examination, HEENT examination was unremarkable. Conjunctivae pale. Sclerae anicteric. CHEST: Clear to auscultation. HEART: Regular rate and rhythm. ABDOMEN is slightly distended. EXTREMITIES: 2+ pedal edema. NEURO: Could not be assessed. LABS: Labs done. His hemoglobin last night 6.8 and today is 8.1. WBC 16.6, platelets 125. BUN 53, creatinine 4.52. IMPRESSION: 1. Acute respiratory failure/septic shock. Presently on the vent, sedated, mechanically ventilated and on multiple IV pressors. 2. Gram-negative bacteremia on broad-spectrum antibiotics. 3. Acute upper gastrointestinal bleed. The patient received a total of 7 units of blood transfusion since hospitalization. Last night Hemoglobin dropped to 6.8, requiring 2 more units of blood transfusion. Currently has an NG tube in place that is draining maroon-colored blood and he has also been having multiple episodes of maroon-colored stools. 4. End-stage renal disease, on hemodialysis. Presently on hold today because of . 5. Severe lactic acidosis. RECOMMENDATIONS: 1. Continue with supportive care with blood transfusions, IV PPIs and close monitoring of CBC. 2. Continue with broad-spectrum antibiotics. 3. No family is at the bedside. However, at this time, I will not plan on any endoscopy intervention given his overall medical condition and extremely guarded prognosis. The patient was made DNR by the family yesterday because of the poor prognosis and hence we will not plan any endoscopic intervention at the present time. For now, will continue with supportive care and will follow him closely during his hospital stay. Thank you for this consultation. SUSAN / GABRIELLA: [id number] /
[2018-10-31 11:57] LABS: Glucose,Whole Blood 156 mg/dL (75-99)
--- NOTE | 2018-10-31 12:11 | P.PN ---
Progress Note - Text Progress Note Date: 10/31/18 Consult was placed for left left shift on peripheral smear including nuclear RBCs, myelocytes and metamyelocytes. Labs were reviewed. This is most consistent with a reactive phenomenon due to the patient's acute illness, as well as use of marrow stability in specifically erythropoietin. Will typically observation alone would be recommended. The patient however is critically ill, with possibly comfort care being considered. Therefore at this time formal hematology consult is not required. Please contact us in case of any further questions. Thanks
--- NOTE | 2018-10-31 13:02 | P.CRDCN ---
History of Present Illness History of present illness: This is Lyric Desai PA-C dictating a consult on this patient The patient was interviewed and examined by me IMPRESSION / ASSESSMENT: Atrial fibrillation with RVR History of hypertension History of CAD status post CABG ESRD on dialysis PLAN: Continue IV amiodarone 0.5 mg/min for rate control, unable to take orally therefore we will continue IV for now anticoagulation not recommended at this time due to GI bleeding and anemia Prognosis poor HPI Patient is an 83-year-old male who was admitted with an acute GI bleed and later developed septic shock and respiratory failure requiring intubation We were consulted because the patient went into atrial fibrillation with RVR. He was started on IV amiodarone and remains in atrial fibrillation with RVR. He is currently sedated, intubated, and requiring pressors. ROS: Unable to obtain secondary to patient is sedated and intubated EXAMINATION: Temperature 98.3F, pulse in the 120s, blood pressure 114/36, oxygen saturation 98% on mechanical ventilation Patient is sedated and intubated Breath sounds equal bilaterally Heart is irregular, systolic murmur appreciated Positive peripheral edema REVIEW OF LABS, ECG & MEDICAL DATA Initial EKG upon admission showed sinus rhythm with 0.[address] depressions and T- wave inversions in the lateral leads, consistent with demand ischemia Rhythm strips showed atrial fibrillation with RVR WBC 16.6, hemoglobin 8.1, sodium 135, potassium 4.7, BUN 53, creatinine 4.5 Past Medical History Past Medical History: Coronary Artery Disease (CAD), Heart Failure, Dialysis, Hyperlipidemia, Hypertension, Myocardial Infarction (ID), Osteoarthritis (OA), Renal Disease, Rheumatoid Arthritis (RA), Skin Disorder Additional Past Medical History / Comment(s): heart murmer, gout, wound on bottom of left foot, anemia, hemodialysis , hx kidney stones, Pt went into a-fib post-op CABG (2106), also needed prolonged intubation due to a left collaspse lung requiring a brochoscopy and devloped post-op vent associated pneu monia (sputum was positive for pseudomonas) after CABG Last Myocardial Infarction Date:: 04/21/2004 History of Any Multi-Drug Resistant Organisms: MRSA, VRE Date of last positivie culture/infection: 10/27/17 MDRO Source:: 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 Past Drug Use History: None Reported - Past Family History Father Family Medical History: No Reported History Additional Family Medical History / Comment(s): father in a car accident Mother Family Medical History: No Reported History Additional Family Medical History / Comment(s): mother of old age Medications and Allergies Home Medications Medication Instructions Recorded Confirmed Type Aspirin [Adult Low Dose Aspirin EC] 81 mg PO DAILY@1700 02/10/15 10/21/18 His tory Pantoprazole [Protonix] 40 mg PO AC-[id number] tablet. 08/16/16 10/21/18 Rx predniSONE 5 mg PO DAILY tab 08/16/16 10/21/18 Rx Atorvastatin [Lipitor] 10 mg PO DAILY 10/07/17 10/21/18 History Allopurinol [Zyloprim] 100 mg PO DAILY 10/21/18 10/21/18 History Amiodarone [Cordarone] 100 mg PO DAILY 10/21/18 10/21/18 History Bisacodyl [Dulcolax] 10 mg RECTAL DAILY PRN 10/21/18 10/21/18 History Calcium Acetate [PhosLo] 667 mg PO TID@0800,1200,1700 10/21/18 10/21/18 History Cefazolin/Detrose 1-4gm/50ml 50 ml IV BID 10/21/18 10/21/18 History Epoetin Kevin [Epogen] 8,000 unit SQ TUTHSA 10/21/18 10/21/18 History Ferrous Sulfate [Feosol] 325 mg PO DAILY@1700 10/21/18 10/21/18 History Folic Acid 1 mg PO DAILY@1700 10/21/18 10/21/18 History Hydrocodone/Acetaminophen [[place] 1 tab PO Q6H PRN 10/21/18 10/21/18 History 10-325] Liquacel (Unknown Dose) 1 dose PO BID@0800,1700 10/21/18 10/21/18 History Magnesium Hydroxide [Milk of 2,400 mg PO DAILY PRN 10/21/18 10/21/18 History Magnesia] Metoprolol Tartrate [Lopressor] 12.5 mg PO BID@0800,1700 10/21/18 10/21/18 History Miconazole Af Powder 2% 1 applic TOPICAL BID 10/21/18 10/21/18 History Midodrine HCl [ProAmatine] 10 mg PO DAILY PRN 10/21/18 10/21/18 History Midodrine HCl [ProAmatine] 10 mg PO TID@0800,1200,1700 10/21/18 10/21/18 History Multivitamins, Thera [Multivitamin 1 tab PO DAILY@1700 10/21/18 10/21/18 History (formulary)] Na Phos,M-B/Na Phos,Di-Ba [Fleet 133 ml RECTAL DAILY PRN 10/21/18 10/21/18 History Adult] Allergies Allergy/AdvReac Type Severity Reaction Status Date / Time No Known Allergies Allergy Verified 10/21/18 10:28 Physical Exam Vitals: Vital Signs Temp Pulse Pulse Resp BP BP Pulse Ox 10/31/18 11:19 85 10/31/18 11:06 90 10/31/18 10:45 98.2 F 86 26 H 117/27 10/31/18 10:15 98.3 F 89 26 H 122/28 10/31/18 10:05 98.3 F 89 26 H 131/30 10/31/18 10:00 87 26 H 95 10/31/18 09:30 87 26 H 97 10/31/18 09:00 122 H 26 H 98 10/31/18 08:30 117 H 26 H 95 10/31/18 08:00 98.4 F 118 H 26 H 96 10/31/18 07:49 98.4 F 109 H 26 H 133/41 98 10/31/18 07:45 106 H 10/31/18 07:30 116 H 18 97 10/31/18 07:27 105 H 10/31/18 07:00 108 H 18 99 10/31/18 06:30 117 H 21 99 10/31/18 06:00 118 H 26 H 98 10/31/18 05:30 116 H 26 H 98 10/31/18 05:00 116 H 26 H 98 10/31/18 04:30 97.6 F 107 H 26 H 98 10/31/18 04:00 104 H 26 H 10/31/18 03:37 98.3 F 112 H 26 H 124/42 97 10/31/18 03:30 112 H 26 H 97 10/31/18 03:07 97.8 F 117 H 26 H 120/40 97 10/31/18 03:00 114 H 26 H 85/34 97 10/31/18 02:57 97.8 F 115 H 26 H 118/40 96 10/31/18 02:50 97.8 F 113 H 26 H 97 10/31/18 02:40 97.7 F 116 H 26 H 97 10/31/18 02:30 113 H 26 H 97 10/31/18 02:20 114 H 26 H 97 10/31/18 02:10 113 H 26 H 97 10/31/18 02:00 116 H 26 H 97 10/31/18 01:50 115 H 26 H 97 10/31/18 01:40 106 H 26 H 97 10/31/18 01:30 115 H 26 H 97 10/31/18 01:20 114 H 26 H 97 10/31/18 01:10 113 H 26 H 85/34 97 10/31/18 01:00 98.2 F 113 H 26 H 97 10/31/18 00:48 97.6 F 113 H 26 H 115/39 96 10/31/18 00:30 115 H 26 H 96 10/31/18 00:18 98.2 F 111 H 26 H 106/36 96 10/31/18 00:12 98.2 F 114 H 26 H 96 10/31/18 00:10 98.4 F 114 H 26 H 96 10/31/18 00:00 123 H 26 H 95 10/30/18 23:30 114 H 26 H 98 10/30/18 23:00 121 H 26 H 96 10/30/18 22:30 122 H 26 H 96 10/30/18 22:00 123 H 26 H 94 L 10/30/18 21:30 120 H 26 H 94 L 10/30/18 21:00 116 H 26 H 95 10/30/18 20:30 134 H 26 H 94 L 10/30/18 20:00 98.5 F 118 H 26 H 97 10/30/18 19:30 134 H 26 H 96 10/30/18 19:00 118 H 29 H 96 10/30/18 18:30 133 H 28 H 96 10/30/18 18:00 124 H 27 H 96 10/30/18 17:30 128 H 27 H 95 10/30/18 17:00 133 H 27 H 96 10/30/18 16:30 149 H 26 H 96 10/30/18 16:00 98.7 F 147 H 26 H 98 10/30/18 15:30 133 H 27 H 93 L 10/30/18 15:00 151 H 15 94 L 10/30/18 14:51 98.4 F 147 H 28 H 105/37 10/30/18 14:39 98.4 F 151 H 32 H 109/36 10/30/18 14:30 134 H 34 H 94 L 10/30/18 14:27 98.4 F 151 H 32 H 109/36 10/30/18 14:00 147 H 28 H 96 10/30/18 13:54 98.7 F 151 H 34 H 107/39 10/30/18 13:50 98.5 F 151 H 30 H 114/37 10/30/18 13:40 98.5 F 147 H 21 90/36 10/30/18 13:30 144 H 32 H 94 L 10/30/18 13:00 116 H 33 H 93 L 10/30/18 12:30 107 H 30 H 95 10/30/18 12:00 101 H 29 H 94 L 10/30/18 11:41 104 H Intake and Output 10/30/18 10/31/18 10/31/18 22:59 06:59 14:59 Intake Total 207.049 4255.375 640.437 Output Total 0 220 5 Balance 426.619 1614.375 635.437 Intake: IV 424 524 212 Piperacillin-Tazobactam 3 100 .375 gm In Sodium Chloride 0.9% 100 ml @ 25 mls/hr IVPB Q12HR@0000, 1200 [facility] Rx#:[id number] Sodium Chloride 0.9% 1, 400 400 200 000 ml @ 50 mls/hr IV . Q20H [facility] Rx#:[id number] pressure bag 24 24 12 Intake, IV Titration 227.933 603.375 428.437 Amount Amiodarone 300 mg In 250 Dextrose 5% in Water 250 ml @ 0.5 MG/MIN 25 mls/hr IV .Q10H [facility] Rx#: [id number] Norepinephrine 32 mg In 127.933 309.191 78.437 Sodium Chloride 0.9% 218 ml @ 0.05 MCG/KG/MIN 1.57 mls/hr IV .Q24H [facility] Rx#: [id number] Propofol 1,000 mg In 100 294.184 100 Empty Bag 1 bag @ Titrate IV .Q0M [facility] Rx#: [id number] Oral 0 Blood Product 1240 0 Ffp 24 Cpd Unit 0 [id number] Rc As-1 Unit 310 [id number] Rc As-1 Unit 310 [id number] Output: Gastric Drainage 200 Urine 0 20 5 Other: Voiding Method Indwelling Catheter Indwelling Catheter Indwelling Catheter Weight 92.9 kg ABP, PAP, CO, CI - Last 8 Hours Arterial Blood Pressure 127/29 Arterial Blood Pressure 116/28 Arterial Blood Pressure 114/36 Arterial Blood Pressure 88/30 Arterial Blood Pressure 125/40 Arterial Blood Pressure 126/38 Arterial Blood Pressure 122/35 Arterial Blood Pressure 113/37 Arterial Blood Pressure 124/44 Arterial Blood Pressure 120/40 Arterial Blood Pressure 126/42 Arterial Blood Pressure 124/40 Arterial Blood Pressure 123/36 Results 10/31/18 07:02 10/31/18 07:02 CBC 10/30/18 10/30/18 10/31/18 Range/Units 13:00 21:32 07:02 WBC 7.7 14.7 H 16.6 H (3.8-10.6) k/uL RBC 2.36 L 2.06 L 2.82 L (4.30-5.90) m/uL Hgb 7.1 L 6.8 L* 8.1 L (13.0-17.5) gm/dL Hct 21.0 L 18.6 L* 24.7 L (39.0-53.0) % Plt Count 141 L 140 L 125 L (150-450) k/uL Comprehensive Metabolic Panel 10/31/18 Range/Units 07:02 Sodium 135 L (137-145) mmol/L Potassium 4.7 (3.5-5.1) mmol/L Chloride 108 H (98-107) mmol/L Carbon Dioxide 12 L (22-30) mmol/L BUN 53 H (9-20) mg/dL Creatinine 4.52 H (0.66-1.25) mg/dL Glucose 140 H (74-99) mg/dL Calcium 7.7 L (8.4-10.2) mg/dL Current Medications Generic Name Dose Route Start Last Admin Trade Name Freq PRN Reason Stop Dose Admin Acetaminophen 500 mg 10/21/18 18:17 Tylenol Tab PO Q6HR PRN Fever and/ or Pain Hydrocodone Bitart/Acetaminophen 1 each 10/24/18 22:08 10/28/18 14:18 [place] 10 PO 1 each Q4H PRN Administration Pain Albuterol/Ipratropium 3 ml 10/29/18 12:00 10/31/18 11:04 Duoneb 0.5 Mg-3 Mg/3 Ml Soln INHALATION 3 ml RT-QID [facility] Administration Albuterol/Ipratropium 3 ml 10/29/18 11:58 Duoneb 0.5 Mg-3 Mg/3 Ml Soln INHALATION RT-Q2H PRN Shortness Of Breath Or Wheezing Allopurinol 100 mg 10/24/18 09:00 10/31/18 08:26 Zyloprim PO Not Given DAILY [facility] Atorvastatin Calcium 40 mg 10/22/18 09:00 10/31/18 08:26 Lipitor PO Not Given DAILY [facility] Chlorhexidine Gluconate 15 ml 10/29/18 21:00 10/31/18 09:08 Peridex MUCOUS MEM 15 ml BID [facility] Administration Darbepoetin Kevin 60 mcg 10/25/18 12:00 10/25/18 12:35 Aranesp SQ 60 mcg Q7D [facility] Administration Guaifenesin 200 mg 10/28/18 17:09 10/28/18 17:29 Robitussin PO 200 mg Q6H PRN Administration Cough Hydrocortisone Acetate 25 mg 10/24/18 09:00 10/31/18 09:03 Anusol-Hc RECTAL Not Given DAILY [facility] Hydromorphone HCl 0.5 mg 10/21/18 18:17 10/28/18 00:19 Dilaudid IVP 0.5 mg Q6HR PRN Administration Severe Pain Albumin Human 50 ml/ IV 50 mls @ 50 mls/hr 10/27/18 14:03 10/29/18 10:17 Solution IVPB 50 mls/hr DAILY PRN Administration Blood Pressure - Low Norepinephrine Bitartrate 32 250 mls @ 1.57 mls/hr 10/29/18 13:15 10/31/18 10:13 mg/ Sodium Chloride IV 0.55 mcg/kg/min .Q24H [facility] 17.273 mls/hr Titration Protocol 0.05 MCG/KG/MIN Piperacillin Sod/Tazobactam 100 mls @ 25 mls/hr 10/29/18 14:00 10/31/18 00:34 Sod 3.375 gm/ Sodium Chloride IVPB 25 mls/hr Q12HR@0000,1200 [facility] Administration Propofol 1,000 mg/ IV Solution 100 mls @ 0 mls/hr 10/29/18 17:15 10/31/18 10:23 IV 70 mcg/kg/min .Q0M [facility] 38.976 mls/hr Administration Protocol Titrate Vasopressin 60 unit/ Sodium 153 mls @ 6.12 mls/hr 10/29/18 17:45 10/31/18 01:01 Chloride IV 6.12 mls/hr .Q24H [facility] Administration 0.04 UNITS/MIN Amiodarone HCl 300 mg/ 250 mls @ 25 mls/hr 10/30/18 20:30 10/31/18 11:15 Dextrose/Water IV 10/31/18 14:29 0.5 mg/min .Q10H [facility] 25 mls/hr Administration Protocol 0.5 MG/MIN Sodium Bicarbonate 150 ml/ 1,150 mls @ 50 mls/hr 10/31/18 09:00 10/31/18 11:14 Dextrose/Water IV 50 mls/hr .Q23H [facility] Administration Insulin Aspart 0 unit 10/30/18 00:00 10/31/18 06:29 Novolog SQ 1 unit Q6HR [facility] Administration Protocol Metoprolol Tartrate 12.5 mg 10/21/18 17:00 10/31/18 08:25 Lopressor PO Not Given BID@0800,1700 [facility] Midodrine 10 mg 10/22/18 08:00 10/31/18 11:26 Proamatine PO Not Given TID@0800,1200,1700 [facility] Midodrine 10 mg 10/21/18 18:15 Proamatine PO DAILY PRN DIALYSIS Nystatin 1 applic 10/21/18 21:00 10/31/18 09:08 Mycostatin Powder TOPICAL 1 applic BID [facility] Administration Ondansetron HCl 4 mg 10/28/18 14:00 10/28/18 14:15 Zofran IVP 4 mg Q6HR PRN Administration Nausea And Vomiting Pantoprazole Sodium 40 mg 10/29/18 21:00 10/31/18 09:08 Protonix IVP 40 mg BID [facility] Administration Sucralfate 1 gm 10/24/18 17:30 10/31/18 11:26 Carafate PO Not Given ACHS [facility] Intake and Output 10/30/18 10/31/18 10/31/18 22:59 06:59 14:59 Intake Total 991.436 4192.375 640.437 Output Total 0 220 5 Balance 009.086 5538.375 635.437 Intake: IV 424 524 212 Piperacillin-Tazobactam 3 100 .375 gm In Sodium Chloride 0.9% 100 ml @ 25 mls/hr IVPB Q12HR@0000, 1200 [facility] Rx#:[id number] Sodium Chloride 0.9% 1, 400 400 200 000 ml @ 50 mls/hr IV . Q20H [facility] Rx#:[id number] pressure bag 24 24 12 Intake, IV Titration 227.933 603.375 428.437 Amount Amiodarone 300 mg In 250 Dextrose 5% in Water 250 ml @ 0.5 MG/MIN 25 mls/hr IV .Q10H [facility] Rx#: [id number] Norepinephrine 32 mg In 127.933 309.191 78.437 Sodium Chloride 0.9% 218 ml @ 0.05 MCG/KG/MIN 1.57 mls/hr IV .Q24H [facility] Rx#: [id number] Propofol 1,000 mg In 100 294.184 100 Empty Bag 1 bag @ Titrate IV .Q0M [facility] Rx#: [id number] Oral 0 Blood Product 1240 0 Ffp 24 Cpd Unit 0 [id number] Rc As-1 Unit 310 [id number] Rc As-1 Unit 310 [id number] Output: Gastric Drainage 200 Urine 0 20 5 Other: Voiding Method Indwelling Catheter Indwelling Catheter Indwelling Catheter Weight 92.9 kg 10/31/18 07:02 10/31/18 07:02
--- NOTE | 2018-10-31 16:04 | P.PN ---
Subjective Progress Note Date: 10/31/18 Principal diagnosis: Mr. Marquez is 83-year-old male, known with ESRD on dialysis and deteriorating over the last few months. He is currently in the ICU on the vent. Attempted dialysis yesterday had to be discontinued because of atrial fibrillation. Family is considering hospice once the son who is [place] comes back. Currently he is on levo fed, amiodarone, propofol. He is currently in normal sinus rhythm. He is somewhat remarkable cool to touch. He has recurrent bacteremia. Objective - Vital Signs Vital signs: Vital Signs Temp 97.8 F 10/31/18 14:31 Pulse 86 10/31/18 15:28 Resp 26 H 10/31/18 15:00 BP 142/38 10/31/18 14:31 Pulse Ox 99 10/31/18 15:00 Intake & Output 10/30/18 10/31/18 10/31/18 18:59 06:59 18:59 Intake Total 4444.581 4937.375 1289.924 Output Total 146 220 10 Balance 0919.274 3097.375 1279.924 Weight 92.8 kg 92.9 kg Intake: IV 636 736 477 Dextrose 5% in Water 1, 150 000 ml @ 50 mls/hr IV . Q23H [facility] with Sodium Bicarb (1 Meq/ml) 150 ml Rx#:[id number] Piperacillin-Tazobactam 3 100 .375 gm In Sodium Chloride 0.9% 100 ml @ 25 mls/hr IVPB Q12HR@0000, 1200 [facility] Rx#:[id number] Sodium Chloride 0.9% 1, 600 600 300 000 ml @ 50 mls/hr IV . Q20H [facility] Rx#:[id number] pressure bag 36 36 27 Intake, IV Titration 427.933 603.375 498.924 Amount Amiodarone 300 mg In 250 Dextrose 5% in Water 250 ml @ 0.5 MG/MIN 25 mls/hr IV .Q10H [facility] Rx#: [id number] Norepinephrine 32 mg In 127.933 309.191 148.924 Sodium Chloride 0.9% 218 ml @ 0.05 MCG/KG/MIN 1.57 mls/hr IV .Q24H [facility] Rx#: [id number] Propofol 1,000 mg In 300 294.184 100 Empty Bag 1 bag @ Titrate IV .Q0M [facility] Rx#: [id number] Oral 0 Blood Product 475 1240 314 Ffp 24 Cp2d Unit 232 [id number] Ffp 24 Cpd Unit 0 [id number] Ffp 24 Cpd Unit 314 [id number] Ffp 24 Pher Acda Unit 243 [id number] Rc As-1 Unit 310 [id number] Rc As-1 Unit 310 [id number] Hemodialysis 300 Output: Gastric Drainage 200 Urine 5 20 10 Hemodialysis 141 Other: Voiding Method Indwelling Catheter Indwelling Catheter Indwelling Catheter ABP, PAP, CO, CI - Last Documented Arterial Blood Pressure 124/32 On examination he is on 40% FiO2 and dependent respiratory failure on proper fall. His comatose. HEENT exam no JVP noted. Lungs are clear to auscultation fair air entry bilaterally on the vent Heart sounds are unremarkable is in normal sinus rhythm Abdomen is slightly distended. Extreme exam reveals markedly with cool to touch. Moderate edema Neurologically obtunded - Labs CBC & Chem 7: 10/31/18 07:02 10/31/18 07:02 Labs: Abnormal Lab Results - Last 24 Hours (Table) 10/29/18 10/30/18 10/30/18 Range/Units 06:55 17:52 21:32 WBC 14.7 H (3.8-10.6) k/uL RBC 2.06 L (4.30-5.90) m/uL Hgb 6.8 L* (13.0-17.5) gm/dL Hct 18.6 L* (39.0-53.0) % RDW 18.4 H (11.5-15.5) % Plt Count 140 L (150-450) k/uL ABG pCO2 (35-45) mmHg ABG HCO3 (21-25) mmol/L ABG Total CO2 (19-24) mmol/L Sodium (137-145) mmol/L Chloride (98-107) mmol/L Carbon Dioxide (22-30) mmol/L BUN (9-20) mg/dL Creatinine (0.66-1.25) mg/dL Glucose (74-99) mg/dL POC Glucose (mg/dL) 160 H (75-99) mg/dL Calcium (8.4-10.2) mg/dL Crossmatch See Detail 10/31/18 10/31/18 10/31/18 Range/Units 00:29 06:25 07:02 WBC (3.8-10.6) k/uL RBC (4.30-5.90) m/uL Hgb (13.0-17.5) gm/dL Hct (39.0-53.0) % RDW (11.5-15.5) % Plt Count (150-450) k/uL ABG pCO2 (35-45) mmHg ABG HCO3 (21-25) mmol/L ABG Total CO2 (19-24) mmol/L Sodium 135 L (137-145) mmol/L Chloride 108 H (98-107) mmol/L Carbon Dioxide 12 L (22-30) mmol/L BUN 53 H (9-20) mg/dL Creatinine 4.52 H (0.66-1.25) mg/dL Glucose 140 H (74-99) mg/dL POC Glucose (mg/dL) 153 H 158 H (75-99) mg/dL Calcium 7.7 L (8.4-10.2) mg/dL Crossmatch 10/31/18 10/31/18 10/31/18 Range/Units 07:02 07:10 11:54 WBC 16.6 H (3.8-10.6) k/uL RBC 2.82 L (4.30-5.90) m/uL Hgb 8.1 L (13.0-17.5) gm/dL Hct 24.7 L (39.0-53.0) % RDW 17.8 H (11.5-15.5) % Plt Count 125 L (150-450) k/uL ABG pCO2 27 L (35-45) mmHg ABG HCO3 15 L (21-25) mmol/L ABG Total CO2 15 L (19-24) mmol/L Sodium (137-145) mmol/L Chloride (98-107) mmol/L Carbon Dioxide (22-30) mmol/L BUN (9-20) mg/dL Creatinine (0.66-1.25) mg/dL Glucose (74-99) mg/dL POC Glucose (mg/dL) 156 H (75-99) mg/dL Calcium (8.4-10.2) mg/dL Crossmatch Microbiology - Last 24 Hours (Table) 10/30/18 13:39 Blood Culture Gram Stain - Preliminary Blood 10/29/18 12:20 Blood Culture Gram Stain - Preliminary Blood 10/30/18 13:39 Blood Culture - Final Blood 10/29/18 12:39 Blood Culture Gram Stain - Final Blood Blood Culture - Final Klebsiella pneumoniae 10/29/18 13:50 Gram Stain - Preliminary Sputum Sputum Culture - Preliminary Pseudomonas aeruginosa Gram Neg Bacilli Julia albicans 10/25/18 06:51 Blood Culture - Final Blood No Growth after 144 hours 10/29/18 12:20 Blood Culture - Final Blood 10/29/18 11:55 Urine Culture - Preliminary Urine,Catheterized Gram Neg Bacilli Assessment and Plan Assessment: Impression. 1. ESRD on dialysis Friday. 2. Deteriorating overall. Currently vent dependent respiratory failure on 40% FiO2 on levo fed, proper fall. 3. Recurrent bacteremia, gram-negative bacilli in the blood on 10/30/2018 previously had Klebsiella pneumonia on 10/29/2018. 4. GI bleed. Large duodenal ulcer, cauterized 5. Severe metabolic acidosis, with a gap of 15 and a bicarb of 12 therefore mostly non-gap acidosis. bicarb is 12, pH is 7.35, pCO2 is 27 Recommendation 1. Agree with comfort measures.
[2018-10-31 18:20] LABS: Glucose,Whole Blood 165 mg/dL (75-99)
--- NOTE | 2018-10-31 18:22 | P.PN ---
Subjective Patient is a 83-year-old male was admitted to the hospital due to acute GI bleed and possibly erosive gastritis and had moderate tinnitus. Currently hemoglobin is stable. Patient did have a history of multiple EGDs in the past. Patient was started on hemodialysis as per nephrology. Patient did have MSSA bacteremia at [facility]. Repeat blood cultures show Micrococcus. Likely contaminant. 10/27/2018 Patient denied any complains of worsening shortness of breath or chest pain. Patient is hypotensive and was given Midrin before hemodialysis. 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 Nephrology is following. Patient denied any complaints of nausea. No headache or dizziness or lightheadedness.. No fever no chills. Otherwise patient does have generalized weakness. No hematemesis or melena. Creatinine 4.94 today. 10/28/2018 Patient is currently awake alert and able to communicate. Still having gen eralized pain and shortness of breath. Nephrology is planning for hemodialysis again today. Otherwise patient is being continued on antibiotics in the form of cefazolin due to recent MSSA bacteremia and patient is also having stage II decub ulcers. Continued on wound care. No fever no chills. Hemoglobin is stable at 8.1 Nephrology and ID is following. 10/29/2018 Patient is more lethargic and disoriented today. Hemoglobin dropped to 5.5. Patient underwent hemodialysis. Patient became more short of breath and lethargic. Patient was hypotensive and is breathing shallow. MICU was consulted and patient is being transferred to intensive care unit. No fever no chills. No evidence of dark-colored stools. No abdominal tenderness noted. Discussed with his regarding CODE STATUS and further care. Family wishes to proceed with full measures. Sputum and repeat Blood cultures and r epeat urine culture was ordered. Antibiotics changed to Zosyn at this time. Complete review of systems could not be obtained from the patient. 10/30/2018 Patient is currently in the MICU. Intubated and sedated and on mechanical ventilator. Requiring pressor support. Blood cultures grew gram-negative bacilli. Currently patient antibodies the form of Zosyn. Hemoglobin is 7.4 this morning. INR is 2.4 today. Patient was started on hemodialysis but after about 15 minutes patient went into A. fib with RVR and hemoglobin and since was suspected at the time. Patient was started on amiodarone ip. Due to poor prognosis family is agreeable to changing the CODE STATUS to DO NOT RESUSCITATE. 10/31/2018 pt remains in the ICU, he is on both levophed and vasopressin vasopressors, pt is intubated and sedated and can not provide information , pt has ongoing blood loss from upper GI via NG tube and from lower GI as per staff as well, this morning pt was getting another units of blood transfusion , he got several units of blood and FFP , his hemoglobin was 6.8 went up to 8.1. pt with muliple positive blood cultures MO like pseudomonas, klebsiella, gram negative species . he is on zosyn with ID on the case. pt could not get his hemodialysis today for unstable vitals. Complete review of systems could not be obtained from the patient. Current medications reviewed. septic shock with gram negative sepsis , and other MO, source skin or pneumonia. Acute hypoxemic respiratory failure secondary to septic shock. Gram-negative bacilli bacteremia Acute GI bleed was likely upper due to erosive gastritis as well as moderate duodenitis. Status post EGD. Acute blood loss anemia status post transfusions. Status post multiple transfusions.. History of previous recurrent GI bleed with peptic ulcer disease. ESRD on hemodialysis TTS.. Hyponatremia improving Lactic acidosis 3.1 second to renal failure improved now Troponin level 0.027 intermediate. 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 History of recent MSSA bacteremia Nicotine dependence History of lithotripsy Plan: Patient is currently in the MICU. positive blood culture blood cultures ordered. contiue with Zosyn for broad-spectrum coverage. contineu with blood transfusion and indicated. Continue to monitor H&H and transfuse as needed.vent managment as per pulmonary/critical care team. several other consultants are following the case including , infectious disease , hematology/oncology, nephrology. code status: DO NOT RESUSCITATE. Prognosis poor with multiple medical problems and comorbid conditions and complex issues. Objective - Vital Signs Vital signs: Vital Signs Temp 97.9 F 10/31/18 16:00 Pulse 85 10/31/18 18:00 Resp 26 H 10/31/18 18:00 BP 122/33 07/13/19 15:57 Pulse Ox 98 10/31/18 18:00 Intake & Output 10/30/18 10/31/18 10/31/18 18:59 06:59 18:59 Intake Total 0301.676 7295.375 1811.924 Output Total 146 220 10 Balance 2614.755 8193.375 1801.924 Weight 92.8 kg 92.9 kg Intake: IV 636 736 683 Dextrose 5% in Water 1, 250 000 ml @ 50 mls/hr IV . Q23H [facility] with Sodium Bicarb (1 Meq/ml) 150 ml Rx#:[id number] Piperacillin-Tazobactam 3 100 100 .375 gm In Sodium Chloride 0.9% 100 ml @ 25 mls/hr IVPB Q12HR@0000, 1200 [facility] Rx#:[id number] Sodium Chloride 0.9% 1, 600 600 300 000 ml @ 50 mls/hr IV . Q20H [facility] Rx#:[id number] pressure bag 36 36 33 Intake, IV Titration 427.933 603.375 498.924 Amount Amiodarone 300 mg In 250 Dextrose 5% in Water 250 ml @ 0.5 MG/MIN 25 mls/hr IV .Q10H [facility] Rx#: [id number] Norepinephrine 32 mg In 127.933 309.191 148.924 Sodium Chloride 0.9% 218 ml @ 0.05 MCG/KG/MIN 1.57 mls/hr IV .Q24H [facility] Rx#: [id number] Propofol 1,000 mg In 300 294.184 100 Empty Bag 1 bag @ Titrate IV .Q0M [facility] Rx#: [id number] Oral 0 Blood Product 475 1240 630 Ffp 24 Cp2d Unit 232 [id number] Ffp 24 Cpd Unit 316 [id number] Ffp 24 Cpd Unit 314 [id number] Ffp 24 Pher Acda Unit 243 [id number] Rc As-1 Unit 310 [id number] Rc As-1 Unit 310 [id number] Hemodialysis 300 Output: Gastric Drainage 200 Urine 5 20 10 Hemodialysis 141 Other: Voiding Method Indwelling Catheter Indwelling Catheter Indwelling Catheter ABP, PAP, CO, CI - Last Documented Arterial Blood Pressure 124/33 - Exam -GENERAL EXAM: intubated and Sedated Head: Atraumatic, normocephalic. -NECK: No masses, no JVD, no thyroid enlargement, no adenopathy. Endotracheal tube and nasogastric tube, bloody drainage noted in the nasogastric tube- CHEST: No chest wall deformity. Symmetrical expansion. LUNGS: Crackles and rhonchi noted bilaterally. CVS: Regular rate and rhythm, normal S1 and S2, no gallops, no murmurs, no rubs ABDOMEN: Soft, nontender. No hepatosplenomegaly, normal bowel sounds, no guarding or rigidity. EXTREMITIES: No clubbing, edema in the bilateral upper extremities, with multiple skin tears, bruising, no cyanosis, 2+ pulses and upper and lower extremities. Left arm AV shunt, right arm PICC line. Right femoral arterial line is noted. MUSCULOSKELETAL: Muscle strength and tone normal. SPINE: No scoliosis or deformity SKIN: No rashes CENTRAL NERVOUS SYSTEM: Cannot be assessed, patient is sedated, on propofol - Labs CBC & Chem 7: 10/31/18 07:02 10/31/18 07:02 Labs: Abnormal Lab Results - Last 24 Hours (Table) 10/29/18 10/30/18 10/30/18 Range/Units 06:55 17:52 21:32 WBC 14.7 H (3.8-10.6) k/uL RBC 2.06 L (4.30-5.90) m/uL Hgb 6.8 L* (13.0-17.5) gm/dL Hct 18.6 L* (39.0-53.0) % RDW 18.4 H (11.5-15.5) % Plt Count 140 L (150-450) k/uL ABG pCO2 (35-45) mmHg ABG HCO3 (21-25) mmol/L ABG Total CO2 (19-24) mmol/L Sodium (137-145) mmol/L Chloride (98-107) mmol/L Carbon Dioxide (22-30) mmol/L BUN (9-20) mg/dL Creatinine (0.66-1.25) mg/dL Glucose (74-99) mg/dL POC Glucose (mg/dL) 160 H (75-99) mg/dL Calcium (8.4-10.2) mg/dL Crossmatch See Detail 10/31/18 10/31/18 10/31/18 Range/Units 00:29 06:25 07:02 WBC (3.8-10.6) k/uL RBC (4.30-5.90) m/uL Hgb (13.0-17.5) gm/dL Hct (39.0-53.0) % RDW (11.5-15.5) % Plt Count (150-450) k/uL ABG pCO2 (35-45) mmHg ABG HCO3 (21-25) mmol/L ABG Total CO2 (19-24) mmol/L Sodium 135 L (137-145) mmol/L Chloride 108 H (98-107) mmol/L Carbon Dioxide 12 L (22-30) mmol/L BUN 53 H (9-20) mg/dL Creatinine 4.52 H (0.66-1.25) mg/dL Glucose 140 H (74-99) mg/dL POC Glucose (mg/dL) 153 H 158 H (75-99) mg/dL Calcium 7.7 L (8.4-10.2) mg/dL Crossmatch 10/31/18 10/31/18 10/31/18 Range/Units 07:02 07:10 11:54 WBC 16.6 H (3.8-10.6) k/uL RBC 2.82 L (4.30-5.90) m/uL Hgb 8.1 L (13.0-17.5) gm/dL Hct 24.7 L (39.0-53.0) % RDW 17.8 H (11.5-15.5) % Plt Count 125 L (150-450) k/uL ABG pCO2 27 L (35-45) mmHg ABG HCO3 15 L (21-25) mmol/L ABG Total CO2 15 L (19-24) mmol/L Sodium (137-145) mmol/L Chloride (98-107) mmol/L Carbon Dioxide (22-30) mmol/L BUN (9-20) mg/dL Creatinine (0.66-1.25) mg/dL Glucose (74-99) mg/dL POC Glucose (mg/dL) 156 H (75-99) mg/dL Calcium (8.4-10.2) mg/dL Crossmatch Microbiology - Last 24 Hours (Table) 10/29/18 12:20 Blood Culture Gram Stain - Preliminary Blood Blood Culture - Preliminary Coagulase Negative Staph 10/30/18 13:39 Blood Culture Gram Stain - Preliminary Blood Blood Culture - Preliminary Gram Neg Bacilli 10/30/18 13:39 Blood Culture - Final Blood 10/29/18 12:39 Blood Culture Gram Stain - Final Blood Blood Culture - Final Klebsiella pneumoniae 10/29/18 13:50 Gram Stain - Preliminary Sputum Sputum Culture - Preliminary Pseudomonas aeruginosa Gram Neg Bacilli Julia albicans 10/25/18 06:51 Blood Culture - Final Blood No Growth after 144 hours 10/29/18 12:20 Blood Culture - Final Blood 10/29/18 11:55 Urine Culture - Preliminary Urine,Catheterized Gram Neg Bacilli Assessment and Plan Assessment: septic shock with gram negative sepsis , and other MO, source skin or pneumonia. Acute hypoxemic respiratory failure secondary to septic shock. Gram-negative bacilli bacteremia Acute GI bleed was likely upper due to erosive gastritis as well as moderate duodenitis. Status post EGD. Acute blood loss anemia status post transfusions. Status post multiple transfusions.. History of previous recurrent GI bleed with peptic ulcer disease. ESRD on hemodialysis TTS.. Hyponatremia improving Lactic acidosis 3.1 second to renal failure improved now Troponin level 0.027 intermediate. 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 History of recent MSSA bacteremia Nicotine dependence History of lithotripsy Plan: Patient is currently in the MICU. positive blood culture blood cultures ordered. contiue with Zosyn for broad-spectrum coverage. contineu with blood transfusion and indicated. Continue to monitor H&H and transfuse as needed.vent managment as per pulmonary/critical care team. several other consultants are following the case including , infectious disease , hematology/oncology, nephrology. code status: DO NOT RESUSCITATE. Prognosis poor with multiple medical problems and comorbid conditions and complex issues.
[2018-10-31 23:47] LABS: Glucose,Whole Blood 169 mg/dL (75-99)
[2018-11-01] MEDS: AMIODARONE 300 MG in DEXTROSE 5% IN WATER 250 ML IV SCH ×4 (01:24→02:20)
[2018-11-01] MEDS: SODIUM CHLORIDE 0.9% 150 ML with VASOPRESSIN 60 UNIT IV SCH ×2 (01:24)
[2018-11-01] MEDS: PROPOFOL 1,000 MG in EMPTY BAG 1 BAG IV SCH ×5 (02:21→15:54)
[2018-11-01 05:02] LABS: Anisocytosis Slight; Hypochromasia Slight; MCV 88.4 fL (80.0-100.0); Mean Platelet Volume 8.8; Platelet Count 94 k/uL (150-450); Poikilocytosis Moderate; RBC 2.24 m/uL (4.30-5.90); RDW 17.1 % (11.5-15.5); WBC 11.7 k/uL (3.8-10.6)
[2018-11-01 05:32] LABS: HCT 19.8 % (39.0-53.0); HGB 6.7 gm/dL (13.0-17.5)
[2018-11-01 05:33] LABS: MCH 29.7 pg (25.0-35.0); MCHC 34.1 g/dL (31.0-37.0); Potassium 4.5 mmol/L (3.5-5.1)
[2018-11-01 06:00] LABS: Calcium 7.6 mg/dL (8.4-10.2)
[2018-11-01 06:22] LABS: Glucose,Whole Blood 168 mg/dL (75-99)
[2018-11-01] MEDS: INSULIN ASPART (NovoLOG) 100 UNIT/ML VIAL SQ SCH (06:26)
[2018-11-01] MEDS: SUCRALFATE 1 GM TAB PO SCH (06:31)
[2018-11-01 07:08] LABS: Allen Test Performed? Yes
[2018-11-01 07:13] LABS: ABG Base Excess -7.8 mmol/L; ABG HCO3 16 mmol/L (21-25); ABG Oxygen Saturation 98.2 % (94-97); ABG PCO2 25 mmHg (35-45); ABG PH 7.43 (7.35-7.45); ABG PO2 100 mmHg (83-108); ABG TCO2 17 mmol/L (19-24)
[2018-11-01 07:19] VITALS: RESP 26
--- NOTE | 2018-11-01 07:31 | XR ---
EXAMINATION TYPE: XR chest 1V portable DATE OF EXAM: 11/01/2018 COMPARISON: 10/31/2018 INDICATION: Tube placement TECHNIQUE: Single frontal view of the chest is obtained. FINDINGS: The heart size is normal. The pulmonary vasculature is normal. Bilateral lower lobe pleural effusions are present. This is increasing on the right. PICC line enters on the right with the tip in the superior vena cava region. Endotracheal tube tip is above the vinod. Nasogastric tube transverses the thorax. IMPRESSION: 1. Increasing right pleural effusion. Stable left lower lobe infiltrate and/or pleural effusion. 2. Lines and catheters discussed above
[2018-11-01] MEDS: IPRATROPIUM-ALBUTEROL 3 ML NEB INHALATION SCH ×4 (07:37→20:23)
[2018-11-01] MEDS: HYDROCORTISONE SUPPOSITORY 25 MG SUPP RECTAL SCH (08:17)
[2018-11-01] MEDS: MIDODRINE 5 MG TAB PO SCH (08:17)
[2018-11-01] MEDS: ALLOPURINOL 100 MG TAB PO SCH (08:17)
[2018-11-01] MEDS: METOPROLOL TARTRATE 12.5 MG TAB PO SCH (08:17)
[2018-11-01] MEDS: ATORVASTATIN 40 MG TAB PO SCH (08:17)
[2018-11-01] MEDS: NYSTATIN 100,000 UNIT/GM POWD 15 GM TOPICAL SCH (08:23)
[2018-11-01] MEDS: CHLORHEXIDINE GLUCONATE 15 ML CUP MUCOUS MEM SCH (08:23)
[2018-11-01] MEDS: PANTOPRAZOLE 40 MG/10 ML VIAL IVP SCH (08:23)
[2018-11-01] MEDS ORDERED: MEROPENEM 1 GM in SODIUM CHLORIDE 0.9% 100 ML IVPB SCH (09:00)
--- NOTE | 2018-11-01 09:07 | P.PN ---
Subjective Principal diagnosis: Mr. Marquez is 83-year-old male, known with ESRD on dialysis and deteriorating over the last few months. He is currently in the ICU on the vent. He is on 40% FiO2 Attempted dialysis day before yesterday had to be discontinued because of atrial fibrillation. Family is considering hospice once the son who is [place] comes [place]. Currently he is on vasopressin, levo fed, amiodarone, propofol. He is currently in normal sinus rhythm. He is somewhat cool to touch, and has mottling of his skin over his feet and knees. He has recurrent bacteremia. Objective - Vital Signs Vital signs: Vital Signs Temp 97.5 F L 11/01/18 07:15 Pulse 76 11/01/18 07:54 Resp 26 H 11/01/18 07:38 BP 138/45 11/01/18 07:15 Pulse Ox 100 11/01/18 07:00 Intake & Output 10/31/18 11/01/18 11/01/18 18:59 06:59 18:59 Intake Total 1120.490 0333.610 56 Output Total 10 136 150 Balance 8306.812 6031.610 -94 Weight 95.8 kg Intake: IV 736 769 56 Dextrose 5% in Water 1, 300 600 50 000 ml @ 50 mls/hr IV . Q23H [facility] with Sodium Bicarb (1 Meq/ml) 150 ml Rx#:[id number] Piperacillin-Tazobactam 3 100 100 .375 gm In Sodium Chloride 0.9% 100 ml @ 25 mls/hr IVPB Q12HR@0000, 1200 [facility] Rx#:[id number] Sodium Chloride 0.9% 1, 300 000 ml @ 50 mls/hr IV . Q20H [facility] Rx#:[id number] pressure bag 36 69 6 Intake, IV Titration 598.924 980.610 Amount Amiodarone 300 mg In 250 250 Dextrose 5% in Water 250 ml @ 0.5 MG/MIN 25 mls/hr IV .Q10H [facility] Rx#: [id number] Amiodarone 300 mg In 250 Dextrose 5% in Water 250 ml @ 0.5 MG/MIN 25 mls/hr IV .Q10H [facility] Rx#: [id number] Norepinephrine 32 mg In 148.924 2.931 Sodium Chloride 0.9% 218 ml @ 0.05 MCG/KG/MIN 1.57 mls/hr IV .Q24H [facility] Rx#: [id number] Propofol 1,000 mg In 200 477.679 Empty Bag 1 bag @ Titrate IV .Q0M [facility] Rx#: [id number] Blood Product 630 0 Ffp 24 Cpd Unit 316 [id number] Ffp 24 Cpd Unit 314 [id number] Rc As-1 Unit 0 [id number] Output: Gastric Drainage 130 150 Urine 10 6 0 Other: Voiding Method Indwelling Catheter Indwelling Catheter Indwelling Catheter # Voids 1 # Bowel Movements 1 ABP, PAP, CO, CI - Last Documented Arterial Blood Pressure 138/44 On examination his obtunded, sedated on the vent 40% FiO2 HEENT exam difficult to see no facial asymmetry noted Lungs are clear to auscultation fair air entry bilaterally Heart sounds are unremarkable for any murmur rub gallop. Abdomen is soft slightly distended Extremity exam was 1-2+ edema with mottling of skin cool extremities. Neurologically sedated and obtunded - Labs CBC & Chem 7: 11/01/18 04:50 11/01/18 04:50 Labs: Abnormal Lab Results - Last 24 Hours (Table) 10/29/18 10/31/18 10/31/18 Range/Units 06:55 11:54 18:17 WBC (3.8-10.6) k/uL RBC (4.30-5.90) m/uL Hgb (13.0-17.5) gm/dL Hct (39.0-53.0) % RDW (11.5-15.5) % Plt Count (150-450) k/uL ABG pCO2 (35-45) mmHg ABG HCO3 (21-25) mmol/L ABG Total CO2 (19-24) mmol/L ABG O2 Saturation (94-97) % Sodium (137-145) mmol/L Carbon Dioxide (22-30) mmol/L BUN (9-20) mg/dL Creatinine (0.66-1.25) mg/dL Glucose (74-99) mg/dL POC Glucose (mg/dL) 156 H 165 H (75-99) mg/dL Calcium (8.4-10.2) mg/dL Crossmatch See Detail 10/31/18 11/01/18 11/01/18 Range/Units 23:44 04:50 04:50 WBC 11.7 H (3.8-10.6) k/uL RBC 2.24 L (4.30-5.90) m/uL Hgb 6.7 L* (13.0-17.5) gm/dL Hct 19.8 L* (39.0-53.0) % RDW 17.1 H (11.5-15.5) % Plt Count 94 L (150-450) k/uL ABG pCO2 (35-45) mmHg ABG HCO3 (21-25) mmol/L ABG Total CO2 (19-24) mmol/L ABG O2 Saturation (94-97) % Sodium 132 L (137-145) mmol/L Carbon Dioxide 12 L (22-30) mmol/L BUN 58 H (9-20) mg/dL Creatinine 4.46 H (0.66-1.25) mg/dL Glucose 149 H (74-99) mg/dL POC Glucose (mg/dL) 169 H (75-99) mg/dL Calcium 7.6 L (8.4-10.2) mg/dL Crossmatch 11/01/18 11/01/18 Range/Units 06:19 06:54 WBC (3.8-10.6) k/uL RBC (4.30-5.90) m/uL Hgb (13.0-17.5) gm/dL Hct (39.0-53.0) % RDW (11.5-15.5) % Plt Count (150-450) k/uL ABG pCO2 25 L (35-45) mmHg ABG HCO3 16 L (21-25) mmol/L ABG Total CO2 17 L (19-24) mmol/L ABG O2 Saturation 98.2 H (94-97) % Sodium (137-145) mmol/L Carbon Dioxide (22-30) mmol/L BUN (9-20) mg/dL Creatinine (0.66-1.25) mg/dL Glucose (74-99) mg/dL POC Glucose (mg/dL) 168 H (75-99) mg/dL Calcium (8.4-10.2) mg/dL Crossmatch Microbiology - Last 24 Hours (Table) 10/29/18 13:50 Gram Stain - Final Sputum Sputum Culture - Final Pseudomonas aeruginosa Klebsiella pneumoniae Julia albicans 10/29/18 11:55 Urine Culture - Final Urine,Catheterized Pseudomonas fluorescens/putida 10/29/18 12:20 Blood Culture Gram Stain - Preliminary Blood Blood Culture - Preliminary Coagulase Negative Staph 10/30/18 13:39 Blood Culture Gram Stain - Preliminary Blood Blood Culture - Preliminary Gram Neg Bacilli 10/30/18 13:39 Blood Culture - Final Blood 10/29/18 12:39 Blood Culture Gram Stain - Final Blood Blood Culture - Final Klebsiella pneumoniae 10/25/18 06:51 Blood Culture - Final Blood No Growth after 144 hours 10/29/18 12:20 Blood Culture - Final Blood Assessment and Plan Assessment: Impression. 1. ESRD on dialysis Friday. 2. Deteriorating overall. Currently vent dependent respiratory failure on 40% FiO2 on levo fed, vasopressin and propofol . 3. Recurrent bacteremia, gram-negative bacilli in the blood on 10/30/2018 previously had Klebsiella pneumonia on 10/29/2018. 4. GI bleed. Large duodenal ulcer, cauterized 5. Severe metabolic acidosis, with a gap of 15 and a bicarb of 12 therefore mostly non-gap acidosis. bicarb is 12, pH is 7.43 and pCO2 was 25 with pO2 of 100 Recommendation 1. Agree with comfort measures. pending son's [place] from [place], 2. No plans to dialyze him today given his instability and the possibility of comfort measures
--- NOTE | 2018-11-01 09:34 | PN ---
PROGRESS NOTE DATE OF DICTATION: November 01, 2018 Patient is a 33-year-old pleasant white male with history of septic shock with gram- negative bacteremia, active gastrointestinal bleed, end-stage renal disease on hemodialysis. Remains in the ICU, intubated on the vent and pressor support. He continues to have ongoing GI bleed. He dropped his hemoglobin again to 6.8 g/dL this morning, and is requiring 2 units of blood transfusion. During the entire hospitalization, he had a total of 9 units of blood transfusion. The patient had NG tube in place and there was approximately 400 mL of maroon-colored stool that was aspirated yesterday. He had at least 4 maroon-colored bowel movements all through the day yesterday. He had an upper endoscopy by Dr. Cuello a week ago that showed severe diffuse gastritis with active oozing in several areas that was cauterized. Sedated on the vent and mechanically ventilated. PHYSICAL EXAMINATION: Vital signs show a blood pressure of 122/62, pulse rate 112, and afebrile. HEENT examination unremarkable. Conjunctivae pale. Sclerae anicteric. Oral cavity no lesions. Neck no JVD or lymph node enlargement. CHEST: Clear to auscultation. HEART: Regular rate and rhythm. ABDOMEN is slightly distended. Bowel sounds are positive. EXTREMITIES: No pedal edema. NG tube has maroon-colored aspirate. NEURO: Patient is sedated. LABS: Today WBC 11.7, hemoglobin 6.7, platelets 94,000. BUN 858, creatinine 4.46. INR yesterday was 2.4. IMPRESSION: 1. Acute respiratory failure secondary to septic shock/Gram-negative bacteremia on broad-spectrum antibiotics. Presently on pressor support/intubated and mechanically ventilated. 2. Active upper gastrointestinal bleed. The patient having multiple episodes of maroon colored stools and marooned colored aspirate through the NG tube. He received total of 9 units of PRBC transfusion during this hospitalization. Hemoglobin this morning is 6.7 and requiring 1 more unit of blood transfusion. 3. End-stage renal disease on hemodialysis. 4. Gram-negative sepsis on broad-spectrum antibiotics. RECOMMENDATIONS: Discussed with the nursing staff at the bedside. Apparently, the patient's family is planning comfort care and they will have family meeting today. For now, will continue with conservative approach with symptomatic and supportive care. No plans for any endoscopy intervention at the present time. Thank you for this consultation. MMLORENAL / IJN: [id number] /
[2018-11-01 09:46] VITALS: BP 139/52
[2018-11-01] MEDS ORDERED: AMIODARONE 300 MG in DEXTROSE 5% IN WATER 250 ML IV SCH ×2 (10:00)
--- NOTE | 2018-11-01 11:22 | P.PN ---
Subjective Progress Note Date: 11/01/18 Principal diagnosis: Acute septic shock This 83-year-old white male patient that was admitted to the hospital on 10/21/2018 from the local extended care facility for lower GI bleeding, patient presented with maroon-colored stools, and anemia. Patient was recently hospitalized at the [facility] for episode of GI bleeding for which he required blood transfusions. Patient had previously been on Eliquis, had been discontinued since April. 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 Patient was also found to be bacteremic with methicillin susceptible Staphylococcus aeruginosa, and was treated with the IV course of cefazolin which was completed yesterday on 10/28/2018. This admission blood culture was positive with micrococcus which was thought to be a contaminant. Patient was receiving hemodialysis treatments, he did receive a unit of blood on 10/21/2018 on admission for hemoglobin of 7.0, 1 unit on 10/25/2018 for hemoglobin of 6.9, and on this morning's labs his hemo globin was down to 5.5 from previous 8.1. Patient was started to pass melanotic stools, he did undergo EGD, which showed erosive gastritis with treatment of 2 focal areas of oozing with Gold probe cauterization. This morning rapid response team was called with concerns about increased difficulty in breathing, tachypnea, lethargy. Patient was quite congested, lethargic, he did have his hemodialysis treatment today, and receive 2 units of blood with hemodialysis, 2 L of fluid was removed. Stat chest x-ray was obtained showing hypoventilatory lungs and small trace pleural effusions with bibasilar atelectasis that appeared similar to previous chest x-rays. Patient was placed on BiPAP support with pressures of 12/6 and FiO2 of 100%, and transferred to the intensive care unit for further management. In the unit patient was evaluated, was quite tachypneic, with a rate of 30-34, tidal volumes of greater than 1 L, and minute ventilation of 30-35 L/min. Were unable to obtain a blood gas related to poor access, extensive swelling, presence of a AV fistula in the left arm, and right PICC line, general swelling, and extremely fragile skin with multiple skin tears on bilateral upper extremities. Lactic acid was elevated at 6.5, patient is hypotensive with systolic in the 80s and diastolic in the 40s, 2 L of IV fluids is being infused, patient was pancultured, Sparks catheter was inserted, with evidence of gross pyuria. White blood cell count of 12.6, hemoglobin of 8.0, serum sodium is 138, potassium is 4.5, chloride is 104, CO2 was 15, anion gap is 19, B1 is 47, creatinine is 4.47, AST is 95, ALT is 8, alkaline phosphatase is 174. Zosyn was started for antibiotic coverage. Patient's family is at the bedside, updated on patient's condition, and they wish to proceed with full measures including CPR, resuscitation, and placement on mechanical ventilatory support, as they state the patient was not ready to go to [facility]. Patient was then intubated and placed on mechanical ventilator, femoral arterial line was placed, gases pending. Patient was examined today on 10/30/2018, remains in the intensive care unit, on mechanical ventilation, on high dose of pressors including norepinephrine and vasopressin. Blood pressure is marginal. His cultures of the blood came back positive for gram-negative rods. Patient is on Zosyn. Being followed by infectious disease on the case. His ventilator settings are assist control rate of 24, tidal volume is 500, FiO2 is 40%, and PEEP is at 5. ABG showed a pO2 of 73 pCO2 of 24 pH of 7.41, patient is also on bicarb drip. WBC count is 10.6 hemoglobin is 7.4, INR is 2.4, continues to have bloody secretions from nasogastric tube, hence we'll try to give the patient fresh frozen plasma to reverse his elevated INR. Patient received a total of 5 units of packed RBCs since admission, and his hemoglobin remains low at 7.4. His son is at bedside, and he was updated on his condition today, made aware of his poor prognosis, in the meantime the patient remains full code, however if his condition gets any worse, we will approach the family again regarding CODE STATUS. Chest x-ray is showing by basilar infiltrates, and possibly some component of interstitial edema. Reevaluated today on 10/31/2018, patient remains in the ICU, on mechanical ventilation, requiring pressors in the form of vasopressin and norepinephrine. His ventilator settings are assist control rate of 26, tidal volume of 500, FiO2 of 40%, PEEP of 5. His drips include propofol at 70 mcg/kg/m, amiodarone, norepinephrine at 0.6 mcg/kg/m, vasopressin at 0.04 units per kilo per hour. Patient is fully sedated, fully ventilated, and today I added sodium bicarb drip because of his ongoing metabolic acidosis, no plans to be dialyzed today because of his hemodynamic instability. Chest x-ray was reviewed, continues to show chronic parenchymal changes, cardiomegaly, and bibasilar atelectasis with small pleural effusions, suspect some component of interstitial edema. This could be cardiogenic or noncardiogenic. Possibility of pneumonia is not entirely ruled out but felt to be less likely. Labs showed leukocytosis with WBC count of 16.6 hemoglobin is 8.1, patient continues to have ongoing GI bleeding with blood noted in the nasogastric tube, hence I gave him 2 more units of fresh frozen plasma today, and he received a total of 7 units of packed RBCs and 4 units of fresh frozen plasma so far. Recommended reevaluation by gastroenterology. ABG showed a pO2 of 83 pCO2 of 27 pH of 7.35, bicarb is 12. Renal functioning showed BUN of 53 creatinine 4.52. Patient is fully sedated, and mechanically ventilated. No family members at bedside today. Reevaluated today on 11/01/2018, patient remains in the ICU, on mechanical ventilation, his ventilator settings are assist control rate of 26 tidal volume of 500 FiO2 of 40%, PEEP of 5. Patient received a total of 9 units of packed RBCs, and 4 units of fresh frozen plasma since admission. Remains on pressors including norepinephrine and vasopressin, remains on amiodarone drip, remains on propofol at 70 mcg/kg/m. And his vasopressin is 0.04 units per minutes. Amiodarone is 0.5 mg/m. Blood cultures are again positive for gram-negative bacilli, most likely is going to turn supervisor to be Klebsiella pneumonia. Possibility of endocarditis was brought up, and cardiology is addressing repeat echocardiogram today. In the meantime I recommended adding meropenem since his Klebsiella pneumonia is ESBL. Sputum has been positive for Pseudomonas, and the patient was already on Zosyn. Patient was seen by Dr. Venegas today, no plans for EGD, seen by nephrology, no plans for dialysis as he is to be unstable. Apparently the family is considering comfort care measures once another family member makes it down sometime today. This was relayed to me by the nurse taking care of the patient. Hemoglobin this morning is 6.7, patient is receiving another unit of packed RBCs and that will be #10.. ABG showed a pO2 of 100 pCO2 of 25 pH of 7.43, patient remains on bicarb drip. His bicarb is 16. BUN is 58 creatinine is 4.46. Calcium is 7.6. Objective - Vital Signs Vital signs: Vital Signs Temp 96.9 F L 11/01/18 09:44 Pulse 50 L 11/01/18 11:01 Resp 26 H 11/01/18 09:44 BP 139/52 11/01/18 09:44 Pulse Ox 100 11/01/18 09:44 Intake & Output 10/31/18 11/01/18 11/01/18 18:59 06:59 18:59 Intake Total 9952.117 1241.610 542.883 Output Total 10 136 150 Balance 6218.026 9528.610 392.883 Weight 95.8 kg Intake: IV 736 769 162 Dextrose 5% in Water 1, 300 600 150 000 ml @ 50 mls/hr IV . Q23H RINA with Sodium Bicarb (1 Meq/ml) 150 ml Rx#:[id number] Piperacillin-Tazobactam 3 100 100 .375 gm In Sodium Chloride 0.9% 100 ml @ 25 mls/hr IVPB Q12HR@0000, 1200 RINA Rx#:[id number] Sodium Chloride 0.9% 1, 300 000 ml @ 50 mls/hr IV . Q20H RINA Rx#:[id number] pressure bag 36 69 12 Intake, IV Titration 598.924 980.610 70.883 Amount Amiodarone 300 mg In 250 250 Dextrose 5% in Water 250 ml @ 0.5 MG/MIN 25 mls/hr IV .Q10H RINA Rx#: [id number] Amiodarone 300 mg In 250 Dextrose 5% in Water 250 ml @ 0.5 MG/MIN 25 mls/hr IV .Q10H RINA Rx#: [id number] Norepinephrine 32 mg In 148.924 2.931 Sodium Chloride 0.9% 218 ml @ 0.05 MCG/KG/MIN 1.57 mls/hr IV .Q24H RINA Rx#: [id number] Propofol 1,000 mg In 200 477.679 70.883 Empty Bag 1 bag @ Titrate IV .Q0M RINA Rx#: [id number] Blood Product 630 310 Ffp 24 Cpd Unit 316 [id number] Ffp 24 Cpd Unit 314 [id number] Rc As-1 Unit 310 [id number] Output: Gastric Drainage 130 150 Urine 10 6 0 Other: Voiding Method Indwelling Catheter Indwelling Catheter Indwelling Catheter # Voids 1 # Bowel Movements 1 ABP, PAP, CO, CI - Last Documented Arterial Blood Pressure 140/53 - Exam GENERAL EXAM: 83-year-old white male, on mechanical ventilation. Sedated, on propofol. Plan to have sedation interruption today, and at least assess mental status. Patient is not ready for weaning. Head: Atraumatic, normocephalic. NECK: No masses, no JVD, no thyroid enlargement, no adenopathy. Endotracheal tube and nasogastric tube, bloody drainage noted in the nasogastric tube. CHEST: No chest wall deformity. Symmetrical expansion. LUNGS: Crackles and rhonchi noted bilaterally. CVS: Regular rate and rhythm, normal S1 and S2, no gallops, no murmurs, no rubs ABDOMEN: Soft, nontender. No hepatosplenomegaly, normal bowel sounds, no guarding or rigidity. EXTREMITIES: No clubbing, edema in the bilateral upper extremities, with multiple skin tears, bruising, no cyanosis, 2+ pulses and upper and lower ext remities. Left arm AV shunt, right arm PICC line. Right femoral arterial line is noted. MUSCULOSKELETAL: Muscle strength and tone normal. SPINE: No scoliosis or deformity SKIN: Friable and fragile skin, multiple areas of ecchymosis in upper and lower extremities. CENTRAL NERVOUS SYSTEM: Cannot be assessed, patient is sedated, on propofol. - Labs CBC & Chem 7: 11/01/18 04:50 11/01/18 04:50 Labs: Abnormal Lab Results - Last 24 Hours (Table) 10/29/18 10/31/18 10/31/18 Range/Units 06:55 11:54 18:17 WBC (3.8-10.6) k/uL RBC (4.30-5.90) m/uL Hgb (13.0-17.5) gm/dL Hct (39.0-53.0) % RDW (11.5-15.5) % Plt Count (150-450) k/uL ABG pCO2 (35-45) mmHg ABG HCO3 (21-25) mmol/L ABG Total CO2 (19-24) mmol/L ABG O2 Saturation (94-97) % Sodium (137-145) mmol/L Carbon Dioxide (22-30) mmol/L BUN (9-20) mg/dL Creatinine (0.66-1.25) mg/dL Glucose (74-99) mg/dL POC Glucose (mg/dL) 156 H 165 H (75-99) mg/dL Calcium (8.4-10.2) mg/dL Crossmatch See Detail 10/31/18 11/01/18 11/01/18 Range/Units 23:44 04:50 04:50 WBC 11.7 H (3.8-10.6) k/uL RBC 2.24 L (4.30-5.90) m/uL Hgb 6.7 L* (13.0-17.5) gm/dL Hct 19.8 L* (39.0-53.0) % RDW 17.1 H (11.5-15.5) % Plt Count 94 L (150-450) k/uL ABG pCO2 (35-45) mmHg ABG HCO3 (21-25) mmol/L ABG Total CO2 (19-24) mmol/L ABG O2 Saturation (94-97) % Sodium 132 L (137-145) mmol/L Carbon Dioxide 12 L (22-30) mmol/L BUN 58 H (9-20) mg/dL Creatinine 4.46 H (0.66-1.25) mg/dL Glucose 149 H (74-99) mg/dL POC Glucose (mg/dL) 169 H (75-99) mg/dL Calcium 7.6 L (8.4-10.2) mg/dL Crossmatch 11/01/18 11/01/18 Range/Units 06:19 06:54 WBC (3.8-10.6) k/uL RBC (4.30-5.90) m/uL Hgb (13.0-17.5) gm/dL Hct (39.0-53.0) % RDW (11.5-15.5) % Plt Count (150-450) k/uL ABG pCO2 25 L (35-45) mmHg ABG HCO3 16 L (21-25) mmol/L ABG Total CO2 17 L (19-24) mmol/L ABG O2 Saturation 98.2 H (94-97) % Sodium (137-145) mmol/L Carbon Dioxide (22-30) mmol/L BUN (9-20) mg/dL Creatinine (0.66-1.25) mg/dL Glucose (74-99) mg/dL POC Glucose (mg/dL) 168 H (75-99) mg/dL Calcium (8.4-10.2) mg/dL Crossmatch Microbiology - Last 24 Hours (Table) 10/30/18 13:39 Blood Culture Gram Stain - Final Blood Blood Culture - Final Klebsiella pneumoniae 10/29/18 13:50 Gram Stain - Final Sputum Sputum Culture - Final Pseudomonas aeruginosa Klebsiella pneumoniae Julia albicans 10/29/18 12:20 Blood Culture Gram Stain - Final Blood Blood Culture - Final Coagulase Negative Staph 10/29/18 11:55 Urine Culture - Final Urine,Catheterized Pseudomonas fluorescens/putida 10/30/18 13:39 Blood Culture - Final Blood 10/29/18 12:39 Blood Culture Gram Stain - Final Blood Blood Culture - Final Klebsiella pneumoniae 10/25/18 06:51 Blood Culture - Final Blood No Growth after 144 hours 10/29/18 12:20 Blood Culture - Final Blood Assessment and Plan Assessment: #1. Acute septic shock, secondary to gram-negative bacteremia, /ESBL/Klebsiella pneumonia. #2. Acute hypoxemic respiratory failure related to acute septic shock requiring intubation and placement on mechanical ventilator #3. Anion gap metabolic acidosis related to lactic acidosis, patient remains on sodium bicarb drip, his renal failure is another contributing factor to his metabolic acidosis. #4. Recent MSSA bacteremia treated with a course of IV cefazolin, however considering the patient has gram-negative organisms in the blood, I recommended that we continue Zosyn, and meropenem was added. I also recommended repeat echocardiogram. #5. Acute GI bleeding, patient initially presented to the hospital on 10/21/2018 with lower GI bleeding, EGD showed erosive gastritis. Received a total of 10 units of packed RBCs and 4 units of fresh was a plasma so far. #6. End-stage renal failure on hemodialysis, however the patient has been unstable for hemodialysis in the last couple of days. #7. Coronary artery disease status post bypass grafting #8. History of lower extremities and sacral wounds with cultures positive for methicillin-resistant staph aureus and Enterococcus faecalis #9. His history of GI bleeding with peptic ulcer disease #10. Micrococcus bacteremia on admission. #11. Hypertension #12. Hyperlipidemia #13. History of myocardial infarction #14. Gout #15. History of nicotine dependence currently in remission #16. [facility] Plan: Continue present supportive care measures including ventilatory support, hemodynamic support, nutritional support, hemodialysis, blood products and fresh frozen plasma for ongoing upper GI bleeding, continue Protonix, continue DVT prophylaxis, antibiotics, CODE STATUS was changed to DO NOT RESUSCITATE yesterday, family will likely proceed to comfort care measures, however waiting for one son to make it back to town from out of state. Critical care time is 45 minutes. Time with Patient: Greater than 30
[2018-11-01] MEDS ORDERED: LORazepam 2 MG/ML INJ IV PRN (12:38)
[2018-11-01] MEDS ORDERED: MORPHINE SULFATE 4 MG/ML SYRINGE IV PRN (12:38)
[2018-11-01 12:57] VITALS: PULSE 78; TEMP 98
[2018-11-01] MEDS ORDERED: SCOPOLAMINE 1.5MG/72HR PATCH TRANSDERM SCH (13:00)
[2018-11-01] MEDS ORDERED: MORPHINE SULFATE 100 MG in SODIUM CHLORIDE 0.9% 90 ML IV SCH (13:15)
--- NOTE | 2018-11-01 14:01 | P.PN ---
Subjective This is Lyric Desai PA-C dictating a progress note on this patient The patient was interviewed and examined by me as well as by Dr. Bates Case discussed with Dr. Bates and he agrees with the plan of care IMPRESSION / ASSESSMENT: Bacteremia and septic shock, systolic murmur, concern for possible endocarditis GI bleed Atrial fibrillation with RVR, rate controlled History of hypertension History of CAD status post CABG ERDS on dialysis PLAN: Transthoracic echocardiogram to assess for possible endocarditis, Avoid COLLEEN at this time due to presence of kris blood and OG-tube On IV antibiotics Continue IV amiodarone for rate control Anticoagulation not recommended at this time due to GI bleeding and anemia Prognosis poor HPI/interval history She is an 83-year-old male with multiple medical problems who is admitted with acute GI bleed and developed septic shock and respiratory failure. We were consulted because patient went into atrial fibrillation with RVR and he was started on IV amiodarone. He also has a systolic murmur. EXAMINATION Temperature is 90.8F, respirations 26, pulse 78, blood pressure 130/50, oxygen saturation 100% on mechanical ventilation Patient is sedated and intubated, kris blood in OG tube Breath sounds equal bilaterally Heart irregular, systolic murmur appreciated Lower extremity edema noted REVIEW OF LABS, ECG Rhythm strip shows patient remains in A. fib Labs reviewed, hemoglobin 6.4, WBC 11.7, potassium 4.5, BUN 58, creatinine 4.46 Objective - Vital Signs Vital signs: Vital Signs Temp 98 F 11/01/18 12:00 Pulse 78 11/01/18 12:30 Resp 26 H 11/01/18 12:30 BP 139/52 11/01/18 09:44 Pulse Ox 100 11/01/18 12:30 Intake & Output 10/31/18 11/01/18 11/01/18 18:59 06:59 18:59 Intake Total 6631.354 8754.610 801.883 Output Total 10 136 455 Balance 3358.142 2940.610 346.883 Weight 95.8 kg Intake: IV 736 769 421 Dextrose 5% in Water 1, 300 600 300 000 ml @ 50 mls/hr IV . Q23H RINA with Sodium Bicarb (1 Meq/ml) 150 ml Rx#:[id number] Meropenem 1 gm In Sodium 100 Chloride 0.9% 100 ml @ 200 mls/hr IVPB Q24HR RINA Rx#:[id number] Piperacillin-Tazobactam 3 100 100 .375 gm In Sodium Chloride 0.9% 100 ml @ 25 mls/hr IVPB Q12HR@0000, 1200 RINA Rx#:[id number] Sodium Chloride 0.9% 1, 300 000 ml @ 50 mls/hr IV . Q20H RINA Rx#:[id number] pressure bag 36 69 21 Intake, IV Titration 598.924 980.610 70.883 Amount Amiodarone 300 mg In 250 250 Dextrose 5% in Water 250 ml @ 0.5 MG/MIN 25 mls/hr IV .Q10H RINA Rx#: [id number] Amiodarone 300 mg In 250 Dextrose 5% in Water 250 ml @ 0.5 MG/MIN 25 mls/hr IV .Q10H RINA Rx#: [id number] Norepinephrine 32 mg In 148.924 2.931 Sodium Chloride 0.9% 218 ml @ 0.05 MCG/KG/MIN 1.57 mls/hr IV .Q24H RINA Rx#: [id number] Propofol 1,000 mg In 200 477.679 70.883 Empty Bag 1 bag @ Titrate IV .Q0M RINA Rx#: [id number] Blood Product 630 310 Ffp 24 Cpd Unit 316 [id number] Ffp 24 Cpd Unit 314 [id number] Rc As-1 Unit 310 [id number] Output: Gastric Drainage 130 150 Urine 10 6 5 Oral Regurgitation 300 Other: Voiding Method Indwelling Catheter Indwelling Catheter Indwelling Catheter # Voids 1 # Bowel Movements 1 ABP, PAP, CO, CI - Last Documented Arterial Blood Pressure 110/45 - Labs CBC & Chem 7: 11/01/18 04:50 11/01/18 04:50 Labs: Abnormal Lab Results - Last 24 Hours (Table) 10/29/18 10/31/18 10/31/18 Range/Units 06:55 18:17 23:44 WBC (3.8-10.6) k/uL RBC (4.30-5.90) m/uL Hgb (13.0-17.5) gm/dL Hct (39.0-53.0) % RDW (11.5-15.5) % Plt Count (150-450) k/uL ABG pCO2 (35-45) mmHg ABG HCO3 (21-25) mmol/L ABG Total CO2 (19-24) mmol/L ABG O2 Saturation (94-97) % Sodium (137-145) mmol/L Carbon Dioxide (22-30) mmol/L BUN (9-20) mg/dL Creatinine (0.66-1.25) mg/dL Glucose (74-99) mg/dL POC Glucose (mg/dL) 165 H 169 H (75-99) mg/dL Calcium (8.4-10.2) mg/dL Crossmatch See Detail 11/01/18 11/01/18 11/01/18 Range/Units 04:50 04:50 06:19 WBC 11.7 H (3.8-10.6) k/uL RBC 2.24 L (4.30-5.90) m/uL Hgb 6.7 L* (13.0-17.5) gm/dL Hct 19.8 L* (39.0-53.0) % RDW 17.1 H (11.5-15.5) % Plt Count 94 L (150-450) k/uL ABG pCO2 (35-45) mmHg ABG HCO3 (21-25) mmol/L ABG Total CO2 (19-24) mmol/L ABG O2 Saturation (94-97) % Sodium 132 L (137-145) mmol/L Carbon Dioxide 12 L (22-30) mmol/L BUN 58 H (9-20) mg/dL Creatinine 4.46 H (0.66-1.25) mg/dL Glucose 149 H (74-99) mg/dL POC Glucose (mg/dL) 168 H (75-99) mg/dL Calcium 7.6 L (8.4-10.2) mg/dL Crossmatch 11/01/18 Range/Units 06:54 WBC (3.8-10.6) k/uL RBC (4.30-5.90) m/uL Hgb (13.0-17.5) gm/dL Hct (39.0-53.0) % RDW (11.5-15.5) % Plt Count (150-450) k/uL ABG pCO2 25 L (35-45) mmHg ABG HCO3 16 L (21-25) mmol/L ABG Total CO2 17 L (19-24) mmol/L ABG O2 Saturation 98.2 H (94-97) % Sodium (137-145) mmol/L Carbon Dioxide (22-30) mmol/L BUN (9-20) mg/dL Creatinine (0.66-1.25) mg/dL Glucose (74-99) mg/dL POC Glucose (mg/dL) (75-99) mg/dL Calcium (8.4-10.2) mg/dL Crossmatch Microbiology - Last 24 Hours (Table) 10/30/18 13:39 Blood Culture Gram Stain - Final Blood Blood Culture - Final Klebsiella pneumoniae 10/29/18 13:50 Gram Stain - Final Sputum Sputum Culture - Final Pseudomonas aeruginosa Klebsiella pneumoniae Julia albicans 10/29/18 12:20 Blood Culture Gram Stain - Final Blood Blood Culture - Final Coagulase Negative Staph 10/29/18 11:55 Urine Culture - Final Urine,Catheterized Pseudomonas fluorescens/putida 10/30/18 13:39 Blood Culture - Final Blood
[2018-11-01] MEDS: DEXTROSE 5% IN WATER 1,000 ML with SODIUM BICARB (1 MEQ/ML) 150 ML IV SCH (14:03)
--- NOTE | 2018-11-01 14:21 | P.PN ---
Subjective Patient is a 83-year-old male was admitted to the hospital due to acute GI bleed and possibly erosive gastritis and had moderate tinnitus. Currently hemoglobin is stable. Patient did have a history of multiple EGDs in the past. Patient was started on hemodialysis as per nephrology. Patient did have MSSA bacteremia at [facility]. Repeat blood cultures show Micrococcus. Likely contaminant. 10/27/2018 Patient denied any complains of worsening shortness of breath or chest pain. Patient is hypotensive and was given Midrin before hemodialysis. 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 Nephrology is following. Patient denied any complaints of nausea. No headache or dizziness or lightheadedness.. No fever no chills. Otherwise patient does have generalized weakness. No hematemesis or melena. Creatinine 4.94 today. 10/28/2018 Patient is currently awake alert and able to communicate. Still having gen eralized pain and shortness of breath. Nephrology is planning for hemodialysis again today. Otherwise patient is being continued on antibiotics in the form of cefazolin due to recent MSSA bacteremia and patient is also having stage II decub ulcers. Continued on wound care. No fever no chills. Hemoglobin is stable at 8.1 Nephrology and ID is following. 10/29/2018 Patient is more lethargic and disoriented today. Hemoglobin dropped to 5.5. Patient underwent hemodialysis. Patient became more short of breath and lethargic. Patient was hypotensive and is breathing shallow. MICU was consulted and patient is being transferred to intensive care unit. No fever no chills. No evidence of dark-colored stools. No abdominal tenderness noted. Discussed with his regarding CODE STATUS and further care. Family wishes to proceed with full measures. Sputum and repeat Blood cultures and r epeat urine culture was ordered. Antibiotics changed to Zosyn at this time. Complete review of systems could not be obtained from the patient. 10/30/2018 Patient is currently in the MICU. Intubated and sedated and on mechanical ventilator. Requiring pressor support. Blood cultures grew gram-negative bacilli. Currently patient antibodies the form of Zosyn. Hemoglobin is 7.4 this morning. INR is 2.4 today. Patient was started on hemodialysis but after about 15 minutes patient went into A. fib with RVR and hemoglobin and since was suspected at the time. Patient was started on amiodarone ip. Due to poor prognosis family is agreeable to changing the CODE STATUS to DO NOT RESUSCITATE. 10/31/2018 pt remains in the ICU, he is on both levophed and vasopressin vasopressors, pt is intubated and sedated and can not provide information , pt has ongoing blood loss from upper GI via NG tube and from lower GI as per staff as well, this morning pt was getting another units of blood transfusion , he got several units of blood and FFP , his hemoglobin was 6.8 went up to 8.1. pt with muliple positive blood cultures MO like pseudomonas, klebsiella, gram negative species . he is on zosyn with ID on the case. pt could not get his hemodialysis today for unstable vitals. 11/01/2018 Patient remains in the ICU in critical condition. His hemoglobin was 6.7 again and he was getting 1 unit of blood transfusion however the second and it was held since the son or coming. He has multiple positive blood cultures and is on antibiotics. However Family decided Comfort Care/hospice, which looks reasonable in view of her severe illness and complex medical problems that were difficult to treat. Complete review of systems could not be obtained from the patient. Current medications reviewed. Objective - Vital Signs Vital signs: Vital Signs Temp 98 F 11/01/18 12:00 Pulse 78 11/01/18 12:30 Resp 26 H 11/01/18 12:30 BP 139/52 11/01/18 09:44 Pulse Ox 100 11/01/18 12:30 Intake & Output 10/31/18 11/01/18 11/01/18 18:59 06:59 18:59 Intake Total 6612.149 2900.610 801.883 Output Total 10 136 455 Balance 3037.001 1304.610 346.883 Weight 95.8 kg Intake: IV 736 769 421 Dextrose 5% in Water 1, 300 600 300 000 ml @ 50 mls/hr IV . Q23H RINA with Sodium Bicarb (1 Meq/ml) 150 ml Rx#:[id number] Meropenem 1 gm In Sodium 100 Chloride 0.9% 100 ml @ 200 mls/hr IVPB Q24HR RINA Rx#:[id number] Piperacillin-Tazobactam 3 100 100 .375 gm In Sodium Chloride 0.9% 100 ml @ 25 mls/hr IVPB Q12HR@0000, 1200 RINA Rx#:[id number] Sodium Chloride 0.9% 1, 300 000 ml @ 50 mls/hr IV . Q20H RINA Rx#:[id number] pressure bag 36 69 21 Intake, IV Titration 598.924 980.610 70.883 Amount Amiodarone 300 mg In 250 250 Dextrose 5% in Water 250 ml @ 0.5 MG/MIN 25 mls/hr IV .Q10H RINA Rx#: [id number] Amiodarone 300 mg In 250 Dextrose 5% in Water 250 ml @ 0.5 MG/MIN 25 mls/hr IV .Q10H RINA Rx#: [id number] Norepinephrine 32 mg In 148.924 2.931 Sodium Chloride 0.9% 218 ml @ 0.05 MCG/KG/MIN 1.57 mls/hr IV .Q24H RINA Rx#: [id number] Propofol 1,000 mg In 200 477.679 70.883 Empty Bag 1 bag @ Titrate IV .Q0M RINA Rx#: [id number] Blood Product 630 310 Ffp 24 Cpd Unit 316 [id number] Ffp 24 Cpd Unit 314 [id number] Rc As-1 Unit 310 [id number] Output: Gastric Drainage 130 150 Urine 10 6 5 Oral Regurgitation 300 Other: Voiding Method Indwelling Catheter Indwelling Catheter Indwelling Catheter # Voids 1 # Bowel Movements 1 ABP, PAP, CO, CI - Last Documented Arterial Blood Pressure 110/45 - Exam -GENERAL EXAM: intubated and Sedated Head: Atraumatic, normocephalic. -NECK: No masses, no JVD, no thyroid enlargement, no adenopathy. Endotracheal tube and nasogastric tube, bloody drainage noted in the nasogastric tube- CHEST: No chest wall deformity. Symmetrical expansion. LUNGS: Crackles and rhonchi noted bilaterally. CVS: Regular rate and rhythm, normal S1 and S2, no gallops, no murmurs, no rubs ABDOMEN: Soft, nontender. No hepatosplenomegaly, normal bowel sounds, no guarding or rigidity. EXTREMITIES: No clubbing, edema in the bilateral upper extremities, with multiple skin tears, bruising, no cyanosis, 2+ pulses and upper and lower e xtremities. Left arm AV shunt, right arm PICC line. Right femoral arterial line is noted. MUSCULOSKELETAL: Muscle strength and tone normal. SPINE: No scoliosis or deformity SKIN: No rashes CENTRAL NERVOUS SYSTEM: Cannot be assessed, patient is sedated, on propofol - Labs CBC & Chem 7: 11/01/18 04:50 11/01/18 04:50 Labs: Abnormal Lab Results - Last 24 Hours (Table) 10/29/18 10/31/18 10/31/18 Range/Units 06:55 18:17 23:44 WBC (3.8-10.6) k/uL RBC (4.30-5.90) m/uL Hgb (13.0-17.5) gm/dL Hct (39.0-53.0) % RDW (11.5-15.5) % Plt Count (150-450) k/uL ABG pCO2 (35-45) mmHg ABG HCO3 (21-25) mmol/L ABG Total CO2 (19-24) mmol/L ABG O2 Saturation (94-97) % Sodium (137-145) mmol/L Carbon Dioxide (22-30) mmol/L BUN (9-20) mg/dL Creatinine (0.66-1.25) mg/dL Glucose (74-99) mg/dL POC Glucose (mg/dL) 165 H 169 H (75-99) mg/dL Calcium (8.4-10.2) mg/dL Crossmatch See Detail 11/01/18 11/01/18 11/01/18 Range/Units 04:50 04:50 06:19 WBC 11.7 H (3.8-10.6) k/uL RBC 2.24 L (4.30-5.90) m/uL Hgb 6.7 L* (13.0-17.5) gm/dL Hct 19.8 L* (39.0-53.0) % RDW 17.1 H (11.5-15.5) % Plt Count 94 L (150-450) k/uL ABG pCO2 (35-45) mmHg ABG HCO3 (21-25) mmol/L ABG Total CO2 (19-24) mmol/L ABG O2 Saturation (94-97) % Sodium 132 L (137-145) mmol/L Carbon Dioxide 12 L (22-30) mmol/L BUN 58 H (9-20) mg/dL Creatinine 4.46 H (0.66-1.25) mg/dL Glucose 149 H (74-99) mg/dL POC Glucose (mg/dL) 168 H (75-99) mg/dL Calcium 7.6 L (8.4-10.2) mg/dL Crossmatch 11/01/18 Range/Units 06:54 WBC (3.8-10.6) k/uL RBC (4.30-5.90) m/uL Hgb (13.0-17.5) gm/dL Hct (39.0-53.0) % RDW (11.5-15.5) % Plt Count (150-450) k/uL ABG pCO2 25 L (35-45) mmHg ABG HCO3 16 L (21-25) mmol/L ABG Total CO2 17 L (19-24) mmol/L ABG O2 Saturation 98.2 H (94-97) % Sodium (137-145) mmol/L Carbon Dioxide (22-30) mmol/L BUN (9-20) mg/dL Creatinine (0.66-1.25) mg/dL Glucose (74-99) mg/dL POC Glucose (mg/dL) (75-99) mg/dL Calcium (8.4-10.2) mg/dL Crossmatch Microbiology - Last 24 Hours (Table) 10/30/18 13:39 Blood Culture Gram Stain - Final Blood Blood Culture - Final Klebsiella pneumoniae 10/29/18 13:50 Gram Stain - Final Sputum Sputum Culture - Final Pseudomonas aeruginosa Klebsiella pneumoniae Julia albicans 10/29/18 12:20 Blood Culture Gram Stain - Final Blood Blood Culture - Final Coagulase Negative Staph 10/29/18 11:55 Urine Culture - Final Urine,Catheterized Pseudomonas fluorescens/putida 10/30/18 13:39 Blood Culture - Final Blood Assessment and Plan Assessment: septic shock with gram negative sepsis , and other MO, source skin or pneumonia. Acute hypoxemic respiratory failure secondary to septic shock. Gram-negative bacilli bacteremia Acute GI bleed was likely upper due to erosive gastritis as well as moderate duodenitis. Status post EGD. Acute blood loss anemia status post transfusions. Status post multiple transfusions.. History of previous recurrent GI bleed with peptic ulcer disease. ESRD on hemodialysis TTS.. Hyponatremia improving Lactic acidosis 3.1 second to renal failure improved now Troponin level 0.027 intermediate. 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 History of recent MSSA bacteremia Nicotine dependence History of lithotripsy Plan: Patient is currently in the MICU. positive blood culture blood cultures ordered. contiue with Zosyn for broad-spectrum coverage. contineu with blood transfusion and indicated. Number the family decided comfort care and withdrawal of treatment. Hospice team consult Continue to monitor H&H and transfuse as needed.vent managment as per pulmonary/critical care team. several other consultants are following the case including , infectious disease , hematology/oncology, nephrology. code status: DO NOT RESUSCITATE. Prognosis poor with multiple medical problems and comorbid conditions and complex issues.
[2018-11-02] MEDS ORDERED: MEROPENEM 1 GM in SODIUM CHLORIDE 0.9% 100 ML IVPB SCH (09:00)
--- NOTE | 2018-11-03 13:18 | CDI ---
Documentation Clarification Form Date: 11/03/2018 From: Agatha Beckwith Phone: If questions call Opal Brown @ [phone], Hours-8:30 am & 5 pm Melodie Navarro Admit Date: 10/23/2018 6:03:00 PM Patient Name: Charlie Xie Visit Number: [id number] Discharge Date: 11/01/2018 7:24:00 PM ATTENTION: The Clinical Documentation Specialists (CDI) and [facility] Coding Staff appreciate your assistance in clarifying documentation. Please respond to the clarification below the line at the bottom and electronically sign. The CDI & [facility] Coding staff will review the response and follow-up if needed. Please note: Queries are made part of the Legal Health Record. If you have any questions, please contact the author of this message via ITS. Dr. Hawkins Sheet Can you please dictate the /Discharge Summary and include the likely/preliminary cause of ? Thank you for your assistance. MTDD
--- NOTE | 2018-11-06 07:53 | P.DS ---
Providers Date of admission: 10/23/18 18:03 Attending physician: Lb Alcala Consults: 10/21/18 12:52 Consult Physician Urgent Consulting Provider: [facility] Consult Reason/Comments: elevated troponin in context of ESRD no chest pain Do you want consulting provider notified?: Yes 10/21/18 18:22 Consult Physician Routine Consulting Provider: Jose Alberto De La Cruz Consult Reason/Comments: decubitus Do you want consulting provider notified?: Yes 10/21/18 19:12 Consult Physician Routine Consulting Provider: Josselin Fernandez Consult Reason/Comments: Dialisis Do you want consulting provider notified?: Yes 10/29/18 17:00 Consult Physician Routine Consulting Provider: uRben Cuello Consult Reason/Comments: GI bleed Do you want consulting provider notified?: Yes 10/30/18 17:32 Consult Physician Routine Consulting Provider: Osei Street Consult Reason/Comments: Nucleated RBC Do you want consulting provider notified?: Yes 10/30/18 18:47 Consult Physician Routine Consulting Provider: Ethan Bates Consult Reason/Comments: afib with rvr Do you want consulting provider notified?: Already Contacted Primary care physician: [facility] Course: Dx: septic shock with gram negative sepsis , and other MO, source skin or pneumonia. Acute hypoxemic respiratory failure secondary to septic shock. Gram-negative bacilli bacteremia Acute GI bleed was likely upper due to erosive gastritis as well as moderate duodenitis. Status post EGD. Acute blood loss anemia status post transfusions. Status post multiple transfusions.. History of previous recurrent GI bleed with peptic ulcer disease. ESRD on hemodialysis TTS.. Hyponatremia improving Lactic acidosis 3.1 second to renal failure improved now Troponin level 0.027 intermediate. likely due to CK D Micrococcus bacteremia due to likely contamination History of coronary artery disease status post coronary artery bypass graft Hypertension Hyperlipidemia History of [place] Resented to joint disease Gout Stage II's bilateral gluteal ulcers. History of recent MSSA bacteremia Nicotine dependence History of lithotripsy Hospital course Patient is a 83-year-old male was admitted to the hospital due to acute GI bleed and possibly erosive gastritis .Patient did have a history of multiple EGDs in the past. Patient was started on hemodialysis as per nephrology. Patient did have multiple organism bacteremia, he was admitted to the ICU , intubated on mechanical ventilation , pt is been followed by many consultants, however pt remained to do poorly despite antibiotic therapy and multiple blood transfusion, he continued to bleed and unresponsive, eventually family decided comfort care for the pt and he is Patient Condition at Discharge: Serious Plan - Discharge Summary Discharge Rx Participant: Yes New Discharge Prescriptions: No Action Aspirin [Adult Low Dose Aspirin EC] 81 mg PO DAILY@1700 Pantoprazole [Protonix] 40 mg PO AC-BRKFST tablet. predniSONE 5 mg PO DAILY tab Atorvastatin [Lipitor] 10 mg PO DAILY Midodrine HCl [ProAmatine] 10 mg PO DAILY PRN PRN Reason: DIALYSIS Magnesium Hydroxide [Milk of Magnesia] 2,400 mg PO DAILY PRN PRN Reason: Constipation Hydrocodone/Acetaminophen [[place] 10-325] 1 tab PO Q6H PRN PRN Reason: Pain Na Phos,M-B/Na Phos,Di-Ba [Fleet Adult] 133 ml RECTAL DAILY PRN PRN Reason: Constipation Bisacodyl [Dulcolax] 10 mg RECTAL DAILY PRN PRN Reason: Constipation Midodrine HCl [ProAmatine] 10 mg PO TID@0800,1200,1700 Calcium Acetate [PhosLo] 667 mg PO TID@0800,1200,1700 Miconazole Af Powder 2% 1 applic TOPICAL BID Metoprolol Tartrate [Lopressor] 12.5 mg PO BID@0800,1700 Liquacel (Unknown Dose) 1 dose PO BID@0800,1700 Cefazolin/Detrose 1-4gm/50ml 50 ml IV BID Multivitamins, Thera [Multivitamin (formulary)] 1 tab PO DAILY@1700 Folic Acid 1 mg PO DAILY@1700 Ferrous Sulfate [Feosol] 325 mg PO DAILY@1700 Epoetin Kevin [Epogen] 8,000 unit SQ TUTHSA Amiodarone [Cordarone] 100 mg PO DAILY Allopurinol [Zyloprim] 100 mg PO DAILY Discharge Medication List Aspirin [Adult Low Dose Aspirin EC] 81 mg PO DAILY@1700 02/10/15 [History] Pantoprazole [Protonix] 40 mg PO AC-BRKFST tablet. 08/16/16 [Rx] predniSONE 5 mg PO DAILY tab 08/16/16 [Rx] Atorvastatin [Lipitor] 10 mg PO DAILY 10/07/17 [History] Allopurinol [Zyloprim] 100 mg PO DAILY 10/21/18 [History] Amiodarone [Cordarone] 100 mg PO DAILY 10/21/18 [History] Bisacodyl [Dulcolax] 10 mg RECTAL DAILY PRN 10/21/18 [History] Calcium Acetate [PhosLo] 667 mg PO TID@0800,1200,1700 10/21/18 [History] Cefazolin/Detrose 1-4gm/50ml 50 ml IV BID 10/21/18 [History] Epoetin Kevin [Epogen] 8,000 unit SQ TUTHSA 10/21/18 [History] Ferrous Sulfate [Feosol] 325 mg PO DAILY@169910/21/18 [History] Folic Acid 1 mg PO DAILY@169910/21/18 [History] Hydrocodone/Acetaminophen [Caldwell 10-325] 1 tab PO Q6H PRN 10/21/18 [History] Liquacel (Unknown Dose) 1 dose PO BID@0800,17010/21/18 [History] Magnesium Hydroxide [Milk of Magnesia] 2,400 mg PO DAILY PRN 10/21/18 [History] Metoprolol Tartrate [Lopressor] 12.5 mg PO BID@0800,169910/21/18 [History] Miconazole Af Powder 2% 1 applic TOPICAL BID 10/21/18 [History] Midodrine HCl [ProAmatine] 10 mg PO DAILY PRN 10/21/18 [History] Midodrine HCl [ProAmatine] 10 mg PO TID@0800,1200,1700 10/21/18 [History] Multivitamins, Thera [Multivitamin (formulary)] 1 tab PO DAILY@169910/21/18 [History] Na Phos,M-B/Na Phos,Di-Ba [Fleet Adult] 133 ml RECTAL DAILY PRN 10/21/18 [History] Follow up Appointment(s)/Referral(s): Paramjit Sage DO [Primary Care Provider] - 1-2 days Activity/Diet/Wound Care/Special Instructions: [place] Discharge Disposition: - Preliminary Cause of Preliminary Cause of : septic shock
== END 2018-11-01 19:24 | disposition expired | DRG 377 ==
LOC: EC 10:01 → 3SCARD 11:33 → OBSVTOIN 10-23 18:03 → 2SICU 10-29 11:24
PROVIDERS: ADMIT Hospitalist; ATTEND Hospitalist
PROC: 30233N1 Transfusion of Nonautologous Red Blood Cells into Peripheral Vein, Percutaneous Approach (ICD-10-PCS; 2018-10-21)
PROC: 5A1D70Z Performance of Urinary Filtration, Intermittent, Less than 6 Hours Per Day (ICD-10-PCS; 2018-10-22)
PROC: 0W3P8ZZ Control Bleeding in Gastrointestinal Tract, Via Natural or Artificial Opening Endoscopic (ICD-10-PCS; principal; 2018-10-22 10:00)
PROC: 5A1945Z Respiratory Ventilation, 24-96 Consecutive Hours (ICD-10-PCS; 2018-10-29)
PROC: 5A09357 Assistance with Respiratory Ventilation, Less than 24 Consecutive Hours, Continuous Positive Airway Pressure (ICD-10-PCS; 2018-10-29)
PROC: 0D9670Z Drainage of Stomach with Drainage Device, Via Natural or Artificial Opening (ICD-10-PCS; 2018-10-29)
PROC: 0BH17EZ Insertion of Endotracheal Airway into Trachea, Via Natural or Artificial Opening (ICD-10-PCS; 2018-10-29)
PROC: 04HY32Z Insertion of Monitoring Device into Lower Artery, Percutaneous Approach (ICD-10-PCS; 2018-10-30)
PROC: 4A133B1 Monitoring of Arterial Pressure, Peripheral, Percutaneous Approach (ICD-10-PCS; 2018-10-30)
PROC: 4A133J1 Monitoring of Arterial Pulse, Peripheral, Percutaneous Approach (ICD-10-PCS; 2018-10-30)
PROC: 30233K1 Transfusion of Nonautologous Frozen Plasma into Peripheral Vein, Percutaneous Approach (ICD-10-PCS; 2018-10-30)
DX: K29.61 Other gastritis with bleeding (principal); J96.01 Acute respiratory failure with hypoxia; R65.21 Severe sepsis with septic shock; N18.6 End stage renal disease; I21.4 Non-ST elevation (NSTEMI) myocardial infarction; A41.59 Other Gram-negative sepsis; J18.9 Pneumonia, unspecified organism; I13.2 Hypertensive heart and chronic kidney disease with heart failure and with stage 5 chronic kidney disease, or end stage renal disease; D62 Acute posthemorrhagic anemia; E87.1 Hypo-osmolality and hyponatremia; E87.2 Acidosis; J98.11 Atelectasis; N39.0 Urinary tract infection, site not specified; K29.80 Duodenitis without bleeding; Z51.5 Encounter for palliative care; Z66 Do not resuscitate; R57.1 Hypovolemic shock; L89.152 Pressure ulcer of sacral region, stage 2; L89.322 Pressure ulcer of left buttock, stage 2; I95.89 Other hypotension; L89.312 Pressure ulcer of right buttock, stage 2; E83.9 Disorder of mineral metabolism, unspecified; I48.0 Paroxysmal atrial fibrillation; I50.9 Heart failure, unspecified; M06.9 Rheumatoid arthritis, unspecified; D63.1 Anemia in chronic kidney disease; F41.9 Anxiety disorder, unspecified; K57.90 Diverticulosis of intestine, part unspecified, without perforation or abscess without bleeding; K44.9 Diaphragmatic hernia without obstruction or gangrene; K64.8 Other hemorrhoids; H91.90 Unspecified hearing loss, unspecified ear; E66.9 Obesity, unspecified; I25.2 Old myocardial infarction; M10.9 Gout, unspecified; E78.5 Hyperlipidemia, unspecified; K59.00 Constipation, unspecified; B95.61 Methicillin susceptible Staphylococcus aureus infection as the cause of diseases classified elsewhere; S41.111A Laceration without foreign body of right upper arm, initial encounter; S41.112A Laceration without foreign body of left upper arm, initial encounter; I25.10 Atherosclerotic heart disease of native coronary artery without angina pectoris; R79.1 Abnormal coagulation profile; M79.674 Pain in right toe(s); M19.90 Unspecified osteoarthritis, unspecified site; Z79.82 Long term (current) use of aspirin; Z79.899 Other long term (current) drug therapy; Z79.52 Long term (current) use of systemic steroids; Z16.12 Extended spectrum beta lactamase (ESBL) resistance; Z99.2 Dependence on renal dialysis; Z95.1 Presence of aortocoronary bypass graft; Z86.14 Personal history of Methicillin resistant Staphylococcus aureus infection; Z87.891 Personal history of nicotine dependence; Z86.19 Personal history of other infectious and parasitic diseases; Z87.11 Personal history of peptic ulcer disease; Z87.442 Personal history of urinary calculi; Z96.651 Presence of right artificial knee joint; Z86.010 Personal history of colon polyps; Z98.42 Cataract extraction status, left eye; Z98.41 Cataract extraction status, right eye
CPT/HCPCS: 36415; 43270; 71045; 80048; 80053; 81001; 82272; 82728; 82805; 83540; 83550; 83605; 84443; 84484; 84550; 85025; 85027; 85610; 85730; 86850; 86900; 86901; 86920; 87040; 87070; 87077; 87086; 87186; 87205; 90935; 93005; 94002; 94003; 94640; 94660; 94760; 96365; 96375; 99285